=== PATIENT | male | born 1960 | race Caucasian/White ===

== ENCOUNTER 2016-06-10 17:17 | Inpatient (IN) | payer MEDICARE ==
[~2016-06-10] VITALS: Ht 172.7 cm; Wt 93.0 kg
[~2016-06-10 17:17] MED LIST: ADV1DS IH; ALBU8.5H2 IH; ANDRO GEL; ASCO500C14 PO; ASPI1TAB PO; BNZ20T PO; CITA20TA4 PO; GFN600TCR PO; HYDR-2890 PO; IBP200T PO; LEVO750T24 PO; MELO-195 PO; MORP30CA16 PO; MORP40CA2 PO; MULT-608 PO; OMEP1CAP10 PO; OMEP40CA36 PO; PRD10T PO; PRM25T PO; TIOT18CA IH; TRAM100T2 PO; [UNRECOGNIZED DRUG - OTHER] INH
--- OUTSIDE RECORDS SUMMARY | 2016-06-10 17:22 | XMS REPORT | Continuity of Care Document ---
Author Author [facility] Organization [facility] Address Unknown Phone Unavailable Care Team Providers Care Ply Cutter Name Role Phone Roderick Patton PCP [phone] Source Comments Some departments are not documenting in the electronic medical record. If you do not see the information that you expected, contact Release of Information in the Health Information Management department at [phone] for further assistance in locating additional records.[facility] Active Allergies and Adverse Reactions Not on File Current Medications Not on file Active Problems Not on file Social History Tobacco Use Types Packs/Day Years Used Date Never Assessed Plan of Care Health Maintenance Due Date Last Done Comments Physical (Comprehensive) 09/12/1966 Exam Pertussis Vaccine 09/12/1970 Tetanus Vaccine 09/12/1976 Colorectal Cancer 09/12/2009 Screening Influenza Vaccine 12/30/2015 Results from Last 3 Months Not on file
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
[2016-06-10 19:39] LABS: BILIRUBIN,URINE NEGATIVE (NEGATIVE); KETONES,URINE NEGATIVE (NEGATIVE); LEUKOCYTE ESTERASE ,URINE 1+ (NEGATIVE); NITRITE,URINE NEGATIVE (NEGATIVE); PH,URINE 6.5 (5-9); PROTEIN,URINE 1+ (NEGATIVE); UROBILINOGEN,URINE NORMAL (NORMAL)
[2016-06-10] MEDS ORDERED: ONDANSETRON 4 MG/2 ML (SDV) Z0FRAN IVP ONE (19:45)
[2016-06-10] MEDS ORDERED: FAMOTIDINE 20MG/2ML IV (PEPCID) IVP ONE (19:45)
[2016-06-10 19:53] LABS: SQUAMOUS EPITHELIAL CELL,UR 25-50 /HPF
[2016-06-10 19:55] LABS: BASOPHILS % (AUTO) 0 % (0-10); EOSINOPHILS # (AUTO) 0.1 10^3/uL (0.0-0.3); EOSINOPHILS % (AUTO) 1 % (0-10); LYMPHOCYTES # (AUTO) 0.3 X 10^3 (1.0-4.0); LYMPHOCYTES % (AUTO) 3 % (12-44); MEAN CORPUSCULAR HEMOGLOBIN 30 PG (25-34); MEAN CORPUSCULAR HGB CONC 32 G/DL (32-36); MEAN CORPUSCULAR VOLUME 92 FL (80-99); MEAN PLATELET VOLUME 9.2 FL (7.4-10.4); MONOCYTES # (AUTO) 0.6 X 10^3 (0.0-1.0); MONOCYTES % (AUTO) 4 % (0-12); NEUTROPHILS # (AUTO) 12.8 X 10^3 (1.8-7.8); NEUTROPHILS % (AUTO) 93 % (42-75); PLATELET COUNT 242 10^3/uL (130-400); RED BLOOD COUNT 4.37 10^6/uL (4.35-5.85); RED CELL DISTRIBUTION WIDTH 14.6 % (10.0-14.5); WHITE BLOOD COUNT 13.9 10^3/uL (4.3-11.0)
[2016-06-10 20:23] LABS: ALANINE AMINOTRANSFERASE 37 U/L (0-55); ALBUMIN 3.9 G/DL (3.2-4.5); ANION GAP 13 MMOL/L (5-14); ASPARTATE AMINO TRANSFERASE 36 U/L (5-34); BILIRUBIN,TOTAL 0.4 MG/DL (0.1-1.0); BLOOD UREA NITROGEN 18 MG/DL (7-18); BUN/CREATININE RATIO 17; CARBON DIOXIDE 28 MMOL/L (21-32); CHLORIDE 95 MMOL/L (98-107); CREATININE SERUM 1.06 MG/DL (0.60-1.30); GFR ESTIMATED > 60; GLUCOSE 113 MG/DL (70-105); LIPASE 33 U/L (8-78); POTASSIUM 4.6 MMOL/L (3.6-5.0); SODIUM 136 MMOL/L (135-145); TOTAL PROTEIN 7.1 G/DL (6.4-8.2)
[2016-06-10 20:25] LABS: BAND NEUTROPHILS 14 %; BASOPHILS % (MANUAL) 0 %; EOSINOPHILS % (MANUAL) 0 %; LYMPHOCYTES % (MANUAL) 2 %; NEUTROPHILS % (MANUAL) 79 %; REACTIVE LYMPHOCYTES 2 %
[2016-06-10 20:26] LABS: ANISOCYTOSIS SLIGHT; POIKILOCYTOSIS MODERATE; STOMATOCYTES MODERATE
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
[2016-06-10] MEDS ORDERED: cefTRIAXone INJECTION 1,000 MG in NS (IVPB) 50 ML IV ONE (21:00)
[2016-06-10] MEDS ORDERED: RT-ALBUTEROL/IPRATROPIUM 3 ML (DUONEB) VIAL INH ONE (21:00)
[2016-06-10] MEDS ORDERED: methylPREDNISolone 125 MG (Solu-MEDROL) VIAL IVP ONE (21:00)
[2016-06-10] MEDS ORDERED: NS IV 1000 ML 1,000 ML IV ONE (21:12)
[2016-06-10] MEDS ORDERED: MAGNESIUM 1 GM/100 ML IVPB 100 ML IV SCH (21:15)
[2016-06-10 22:03] LABS: ABG BASE EXCESS 4.3 MMOL/L (-2.5-2.5); ABG HCO3 31 MMOL/L (23-27); ABG OXYGEN SATURATION 98 % (94-100); ABG PCO2 56 MMHG (35-45); ABG PH 7.36 (7.37-7.43); ABG PO2 109 MMHG (79-93); ABG TCO2 32.1 MMOL/L (21.0-31.0); ALLENS TEST YES-POS; PATIENT TEMP 99.1
[2016-06-10 23:15] VITALS: BP 134/63
[2016-06-10] MEDS ORDERED: NS IV 1000 ML 1,000 ML ONE (23:42)
[2016-06-11] VITALS: BP 129/79
[2016-06-11] MEDS ORDERED: SODIUM CHLORIDE (ADD-VANTAGE) 250 ML ONE (00:07)
[2016-06-11] MEDS ORDERED: AZITHROMYCIN IV ADD-VANTAGE 500 MG IV ONE (00:07)
[2016-06-11] MEDS: RT-ALBUTEROL/IPRATROPIUM 3 ML (DUONEB) VIAL INH SCH ×6 (02:33→22:50)
[2016-06-11] MEDS ORDERED: FLUT1AER IH ×2 (03:17→13:00)
[2016-06-11] MEDS ORDERED: UMEC62.5 IH ×2 (03:17→13:00)
[2016-06-11] MEDS ORDERED: ALB0.5V IH (03:17)
[2016-06-11] MEDS ORDERED: RT-ALBUTEROL/IPRATROPIUM 3 ML (DUONEB) VIAL IH PRN (03:30)
[2016-06-11] MEDS ORDERED: ACETAMINOPHEN 500 MG TAB (TYLENOL) PO PRN (03:30)
[2016-06-11] MEDS: NS IV 1000 ML 1,000 ML IV SCH ×3 (03:30→17:22)
[2016-06-11] MEDS: AZITHROMYCIN 500 MG/NS 250 ML IVPB IV SCH ×2 (03:30)
[2016-06-11 04:00] VITALS: BP 105/70
[2016-06-11] MEDS ORDERED: TURM500C7 PO (04:22)
[2016-06-11] MEDS ORDERED: [UNRECOGNIZED DRUG - CODE] PO (04:22)
[2016-06-11] MEDS ORDERED: BENA20TA2 PO (04:22)
[2016-06-11] MEDS ORDERED: MORP60CP12 PO (04:22)
[2016-06-11] MEDS ORDERED: MULT-851 PO (04:22)
[2016-06-11] MEDS ORDERED: GLUC1CAP37 PO (04:22)
[2016-06-11] MEDS ORDERED: CALC-6 PO (04:22)
[2016-06-11] MEDS ORDERED: ZOLP5TAB7 PO (04:22)
[2016-06-11] MEDS ORDERED: IBUP-2055 PO (04:22)
[2016-06-11] MEDS ORDERED: BACL10TA PO (04:22)
[2016-06-11] MEDS ORDERED: LORA10TA7 PO (04:22)
[2016-06-11] MEDS ORDERED: GUAI400T71 PO (04:22)
[2016-06-11] MEDS ORDERED: DOCU-143 PO (04:22)
[2016-06-11] MEDS ORDERED: FURO20TA4 PO (04:22)
[2016-06-11] MEDS ORDERED: PROM25TA14 PO (04:22)
[2016-06-11] MEDS ORDERED: methylPREDNISolone 125 MG (Solu-MEDROL) VIAL IV SCH (05:00)
[2016-06-11 05:34] LABS: BASOPHILS % (AUTO) 0 % (0-10); EOSINOPHILS % (AUTO) 0 % (0-10); LYMPHOCYTES # (AUTO) 0.2 X 10^3 (1.0-4.0); LYMPHOCYTES % (AUTO) 2 % (12-44); MEAN CORPUSCULAR HEMOGLOBIN 30 PG (25-34); MEAN CORPUSCULAR HGB CONC 33 G/DL (32-36); MEAN CORPUSCULAR VOLUME 92 FL (80-99); MONOCYTES # (AUTO) 0.1 X 10^3 (0.0-1.0); MONOCYTES % (AUTO) 1 % (0-12); NEUTROPHILS # (AUTO) 11.8 X 10^3 (1.8-7.8); NEUTROPHILS % (AUTO) 98 % (42-75); PLATELET COUNT 259 10^3/uL (130-400); RED BLOOD COUNT 4.05 10^6/uL (4.35-5.85); RED CELL DISTRIBUTION WIDTH 14.6 % (10.0-14.5); WHITE BLOOD COUNT 12.1 10^3/uL (4.3-11.0)
[2016-06-11 08:00] VITALS: BP 121/66
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
[2016-06-11] MEDS ORDERED: LORazepam INJ 2 MG/ML (ATIVAN) VIAL ONE (08:43)
[2016-06-11] MEDS ORDERED: RT-ALBUTEROL SULF 2.5 MG/3 ML PRE-MIX VIAL ONE (08:53)
[2016-06-11 09:11] LABS: ABG BASE EXCESS -2.4 MMOL/L (-2.5-2.5); ABG HCO3 25 MMOL/L (23-27); ABG OXYGEN SATURATION 96 % (94-100); ABG PCO2 53 MMHG (35-45); ABG PO2 87 MMHG (79-93); ABG TCO2 26.2 MMOL/L (21.0-31.0)
[2016-06-11 09:14] LABS: ABG PH 7.29 (7.37-7.43); ALLENS TEST YES-POS
[2016-06-11 09:15] LABS: PATIENT TEMP 99.6
[2016-06-11] MEDS ORDERED: LORazepam INJ 2 MG/ML (ATIVAN) VIAL IVP PRN (09:15)
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
[2016-06-11] MEDS ORDERED: RT-ALBUTEROL SULF 2.5 MG/3 ML PRE-MIX VIAL INH NR (09:30)
[2016-06-11] MEDS ORDERED: FUROSEMIDE 40 MG/4 ML INJ (LASIX) ONE (09:40)
[2016-06-11] MEDS ORDERED: FUROSEMIDE 40 MG/4 ML INJ (LASIX) IVP NR (09:45)
[2016-06-11] MEDS ORDERED: CATHETER FLUSH 10 ML SYR IV PRN (09:45)
[2016-06-11 12:00] VITALS: BP 107/70
[2016-06-11] MEDS: HYDROcodone/APAP 10 MG/325 MG (LORTAB) TAB PO PRN ×3 (13:27→21:25)
[2016-06-11] MEDS: methylPREDNISolone 125 MG (Solu-MEDROL) VIAL IV SCH ×2 (13:30→21:25)
[2016-06-11] MEDS ORDERED: ZOLPIDEM 5 MG (AMBIEN) TAB PO PRN (14:00)
[2016-06-11] MEDS: morphine ER 30 MG (MS CONTIN) TAB PO SCH (14:06)
[2016-06-11 16:55] VITALS: BP 107/58
[2016-06-11 20:00] VITALS: BP 116/58
[2016-06-11] MEDS ORDERED: cefTRIAXone INJECTION 1,000 MG in NS (IVPB) 50 ML IV SCH (21:00)
[2016-06-12] VITALS (17 sets, daily range): BP systolic 117–156; BP diastolic 62–86
[2016-06-12] MEDS: morphine ER 30 MG (MS CONTIN) TAB PO SCH ×3 (00:32→20:47)
[2016-06-12] MEDS: NS IV 1000 ML 1,000 ML IV SCH ×3 (02:23→14:52)
[2016-06-12] MEDS: RT-ALBUTEROL/IPRATROPIUM 3 ML (DUONEB) VIAL INH SCH ×6 (03:10→22:17)
[2016-06-12] MEDS: AZITHROMYCIN 500 MG/NS 250 ML IVPB IV SCH ×2 (03:24)
[2016-06-12] MEDS: methylPREDNISolone 125 MG (Solu-MEDROL) VIAL IV SCH (04:59)
[2016-06-12] MEDS: HYDROcodone/APAP 10 MG/325 MG (LORTAB) TAB PO PRN ×3 (05:55→22:23)
[2016-06-12 09:14] LABS: BASOPHILS % (AUTO) 0 % (0-10); EOSINOPHILS # (AUTO) 0.1 10^3/uL (0.0-0.3); EOSINOPHILS % (AUTO) 0 % (0-10); LYMPHOCYTES # (AUTO) 0.9 X 10^3 (1.0-4.0); LYMPHOCYTES % (AUTO) 3 % (12-44); MEAN CORPUSCULAR HEMOGLOBIN 30 PG (25-34); MEAN CORPUSCULAR HGB CONC 32 G/DL (32-36); MEAN CORPUSCULAR VOLUME 93 FL (80-99); MEAN PLATELET VOLUME 9.4 FL (7.4-10.4); MONOCYTES # (AUTO) 0.8 X 10^3 (0.0-1.0); MONOCYTES % (AUTO) 3 % (0-12); NEUTROPHILS # (AUTO) 29.6 X 10^3 (1.8-7.8); NEUTROPHILS % (AUTO) 95 % (42-75); PLATELET COUNT 344 10^3/uL (130-400); RED BLOOD COUNT 4.34 10^6/uL (4.35-5.85); RED CELL DISTRIBUTION WIDTH 15.3 % (10.0-14.5)
[2016-06-12 09:17] LABS: WHITE BLOOD COUNT 31.3 10^3/uL (4.3-11.0)
[2016-06-12 09:24] LABS: ABG BASE EXCESS -0.5 MMOL/L (-2.5-2.5); ABG HCO3 27 MMOL/L (23-27); ABG OXYGEN SATURATION 100 % (94-100); ABG PCO2 62 MMHG (35-45); ABG PO2 210 MMHG (79-93); ABG TCO2 29.2 MMOL/L (21.0-31.0)
[2016-06-12 09:29] LABS: ABG PH 7.27 (7.37-7.43)
[2016-06-12 09:30] LABS: ALLENS TEST YES-POS; PATIENT TEMP 99.4
[2016-06-12 09:36] LABS: BAND NEUTROPHILS 6 %; BASOPHILS % (MANUAL) 0 %; EOSINOPHILS % (MANUAL) 0 %; LYMPHOCYTES % (MANUAL) 1 %; NEUTROPHILS % (MANUAL) 87 %; REACTIVE LYMPHOCYTES 4 %
[2016-06-12 09:40] LABS: ALANINE AMINOTRANSFERASE 52 U/L (0-55); ANION GAP 12 MMOL/L (5-14); ASPARTATE AMINO TRANSFERASE 53 U/L (5-34); BILIRUBIN,TOTAL 0.2 MG/DL (0.1-1.0); BLOOD UREA NITROGEN 19 MG/DL (7-18); BUN/CREATININE RATIO 20; CALCIUM 8.5 MG/DL (8.5-10.1); CARBON DIOXIDE 25 MMOL/L (21-32); CHLORIDE 105 MMOL/L (98-107); CREATININE SERUM 0.95 MG/DL (0.60-1.30); GFR ESTIMATED > 60; GLUCOSE 161 MG/DL (70-105); POTASSIUM 4.4 MMOL/L (3.6-5.0); SODIUM 142 MMOL/L (135-145); TOTAL PROTEIN 7.3 G/DL (6.4-8.2)
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
[2016-06-12] MEDS ORDERED: ENOXAPARIN 40 MG/0.4 ML (LOVENOX) SYR SC SCH (11:15)
[2016-06-12] MEDS ORDERED: LEVOFLOXACIN 750 MG/150 ML IV 150 ML IV SCH (11:15)
[2016-06-12] MEDS ORDERED: methylPREDNISolone 40 MG/ML (Solu-MEDROL) VIAL ONE (11:28)
[2016-06-12] MEDS ORDERED: CITA20TA7 PO (11:47)
[2016-06-12] MEDS ORDERED: MORP60TA52 PO (11:47)
[2016-06-12] MEDS ORDERED: TEST75GE2 TD (11:47)
[2016-06-12] MEDS ORDERED: RT-ALBUINH IH (11:47)
[2016-06-12] MEDS ORDERED: [UNRECOGNIZED DRUG - CODE] PO (11:47)
[2016-06-12] MEDS ORDERED: ASPI1TAB22 PO (11:47)
[2016-06-12] MEDS ORDERED: CETI-214 PO (11:47)
[2016-06-12] MEDS ORDERED: TEST75GE3 TP (11:47)
[2016-06-12] MEDS ORDERED: POTA10TA36 PO (11:47)
[2016-06-12] MEDS ORDERED: OMEP20CA12 PO (11:47)
[2016-06-12] MEDS ORDERED: HYDR-3820 PO (11:47)
[2016-06-12] MEDS ORDERED: GLUC1CAP10 PO (11:47)
[2016-06-12] MEDS: methylPREDNISolone 40 MG/ML (Solu-MEDROL) VIAL IV SCH ×2 (12:00→19:15)
[2016-06-12] MEDS ORDERED: methylPREDNISolone 125 MG (Solu-MEDROL) VIAL IV SCH (12:00)
[2016-06-12 15:10] LABS: ABG BASE EXCESS 1.9 MMOL/L (-2.5-2.5); ABG HCO3 27 MMOL/L (23-27); ABG OXYGEN SATURATION 99 % (94-100); ABG PCO2 46 MMHG (35-45); ABG PH 7.39 (7.37-7.43); ABG PO2 139 MMHG (79-93); ABG TCO2 28.7 MMOL/L (21.0-31.0)
[2016-06-12 15:11] LABS: ALLENS TEST POSITIVE; PATIENT TEMP 98.5
[2016-06-12] MEDS ORDERED: morphine INJ 4 MG/ML 1 ML (VIAL/SYRINGE) ONE (18:36)
[2016-06-12] MEDS ORDERED: DEXMEDETOMIDINE PRE-MIX 100 ML IV PRN (19:15)
[2016-06-12] MEDS ORDERED: morphine INJ 4 MG/ML 1 ML (VIAL/SYRINGE) IVP PRN (19:15)
--- NOTE | 2016-06-12 19:31 | Diagnostic Imaging Report ---
INDICATION: Respiratory distress. COMPARISON: 06/12/2016 at 9:35 a.m. FINDINGS: A single view of the chest demonstrates hyperinflation compatible with COPD. There is improved aeration in the left lung base. No new infiltrate is seen. There is no pulmonary edema, pneumothorax or effusion. IMPRESSION: 1. COPD. 2. Interval clearing of the left lung base. Dictated by: Dictated on workstation # [id number]
[2016-06-12] MEDS: CEFEPIME INJECTION 2,000 MG in NS (IVPB) 50 ML IV SCH (20:47)
[2016-06-13] VITALS (25 sets, daily range): BP systolic 123–169; BP diastolic 73–102
[2016-06-13] MEDS: NS IV 1000 ML 1,000 ML IV SCH ×3 (00:33→19:37)
[2016-06-13] MEDS: methylPREDNISolone 40 MG/ML (Solu-MEDROL) VIAL IV SCH ×5 (01:00→23:44)
[2016-06-13] MEDS: RT-ALBUTEROL/IPRATROPIUM 3 ML (DUONEB) VIAL INH SCH ×6 (02:41→22:07)
[2016-06-13 04:11] LABS: BASOPHILS % (AUTO) 0 % (0-10); EOSINOPHILS % (AUTO) 0 % (0-10); LYMPHOCYTES # (AUTO) 0.5 X 10^3 (1.0-4.0); LYMPHOCYTES % (AUTO) 3 % (12-44); MEAN CORPUSCULAR HEMOGLOBIN 30 PG (25-34); MEAN CORPUSCULAR HGB CONC 31 G/DL (32-36); MEAN CORPUSCULAR VOLUME 94 FL (80-99); MEAN PLATELET VOLUME 9.5 FL (7.4-10.4); MONOCYTES # (AUTO) 0.6 X 10^3 (0.0-1.0); MONOCYTES % (AUTO) 3 % (0-12); NEUTROPHILS # (AUTO) 16.9 X 10^3 (1.8-7.8); NEUTROPHILS % (AUTO) 94 % (42-75); PLATELET COUNT 265 10^3/uL (130-400); RED CELL DISTRIBUTION WIDTH 15.3 % (10.0-14.5)
[2016-06-13 04:40] LABS: ANION GAP 10 MMOL/L (5-14); BLOOD UREA NITROGEN 19 MG/DL (7-18); BUN/CREATININE RATIO 23; CALCIUM 7.9 MG/DL (8.5-10.1); CARBON DIOXIDE 25 MMOL/L (21-32); CHLORIDE 105 MMOL/L (98-107); CREATININE SERUM 0.81 MG/DL (0.60-1.30); GFR ESTIMATED > 60; GLUCOSE 144 MG/DL (70-105); MAGNESIUM 2.2 MG/DL (1.8-2.4); PHOSPHORUS 3.2 MG/DL (2.3-4.7); POTASSIUM 4.4 MMOL/L (3.6-5.0); SODIUM 140 MMOL/L (135-145)
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
[2016-06-13] MEDS: morphine ER 30 MG (MS CONTIN) TAB PO SCH ×2 (07:58→20:47)
[2016-06-13] MEDS: CEFEPIME INJECTION 2,000 MG in NS (IVPB) 50 ML IV SCH ×2 (07:58→20:47)
[2016-06-13] MEDS ORDERED: DOCUSATE SODIUM 100 MG (COLACE) CAP PO PRN (09:15)
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
[2016-06-13] MEDS: HYDROcodone/APAP 10 MG/325 MG (LORTAB) TAB PO PRN ×4 (10:07→23:44)
[2016-06-13] MEDS ORDERED: guaiFENesin (MUCINEX) 600 MG TAB PO ONE (10:10)
[2016-06-13] MEDS: LEVOFLOXACIN 750 MG TAB (LEVAQUIN) PO SCH (10:11)
[2016-06-13] MEDS: LORATADINE (CLARITIN) 10 MG TAB PO SCH (10:11)
[2016-06-13] MEDS: ENOXAPARIN 40 MG/0.4 ML (LOVENOX) SYR SC SCH (10:11)
[2016-06-13] MEDS: PANTOPRAZOLE 20 MG TABLET (PROTONIX) PO SCH (10:11)
--- NOTE | 2016-06-13 10:14 | Progress Note (SOAP) ---
KYLE SANDOVAL MEDICAL STUDENT 06/13/16 1014: Subjective Subjective/Events-last exam Mr. Alonso reports that he had another episode of respiratory distress 06/12 afternoon (after AM rounds) when he got out of bed to use the restroom. Overnight and this morning, he has been stable and has had no difficulty breathing. He has been out of bed twice in the past 36 hrs, and he has had respiratory distress both times. He reports that his chronic arthritic pain has been stable since his admission. His Afia was in the room with him this AM, and she was asking about his HTN medication (we had been holding it due to hypotension/normotension, plan to restart today due to his trend back towards his baseline BP) and his guaifenesin (which we restarted today upon receipt and review of his home medications list). Review of Systems HEENT: No Head Aches, No Dysphasia, No Sinus Congestion Pulmonary: No Dyspnea, No Pleuritic Chest Pain Cardiovascular: No: Chest Pain, Palpitations Gastrointestinal: No: Abdominal Pain, Constipation, Diarrhea, Nausea, Vomiting Genitourinary: No Dysuria Musculoskeletal: : other Chronic polyarthritis, stable Objective Exam Vital Signs Date Time Temp Pulse Resp B/P Pulse Ox O2 Delivery O2 Flow Rate FiO2 06/13/16 08:06 98 High Flow NC 8.00 06/13/16 08:04 98.0 93 17 149/87 98 High Flow NC 8.00 06/13/16 07:00 66 06/13/16 06:26 99 6.00 06/13/16 06:00 67 12 124/81 99 High Flow NC 8.00 06/13/16 05:00 75 16 132/79 98 High Flow NC 8.00 06/13/16 04:00 77 13 138/82 95 High Flow NC 8.00 06/13/16 04:00 97.0 High Flow NC 8.00 06/13/16 03:00 80 13 123/73 97 High Flow NC 8.00 06/13/16 02:41 98 6.00 06/13/16 02:00 76 14 135/78 98 High Flow NC 8.00 06/13/16 01:00 81 12 135/77 97 High Flow NC 8.00 06/13/16 01:00 81 06/13/16 00:00 96 25 123/79 97 High Flow NC 8.00 06/12/16 23:00 107 22 146/71 95 High Flow NC 8.00 06/12/16 22:18 97 6.00 06/12/16 22:00 85 14 135/86 98 High Flow NC 8.00 06/12/16 21:00 102 10 122/83 92 High Flow NC 8.00 06/12/16 20:00 100 NIV/Bilevel 45 06/12/16 20:00 113 14 119/82 95 NIV/Bilevel 45.00 06/12/16 20:00 98.3 NIV/Bilevel 45.00 06/12/16 19:00 141 20 135/84 98 NIV/Bilevel 45.00 06/12/16 19:00 141 06/12/16 18:41 92 36 100 30.00 06/12/16 18:00 94 8 96 Nasal Cannula 4.00 06/12/16 17:00 103 14 96 Nasal Cannula 4.00 06/12/16 16:00 115 21 140/74 96 Nasal Cannula 4.00 06/12/16 15:00 108 14 100 NIV/Bilevel 30.00 06/12/16 14:22 96 18 100 30.00 06/12/16 14:00 109 18 126/73 100 NIV/Bilevel 30.00 06/12/16 13:00 111 06/12/16 13:00 113 13 137/77 99 NIV/Bilevel 50.00 06/12/16 12:49 108 16 100 40.00 06/12/16 11:38 100 NIV/Bilevel 50 06/12/16 11:37 97.8 110 19 117/75 95 NIV/Bilevel 50.00 06/12/16 11:00 107 19 121/86 100 NIV/Bilevel 50.00 06/12/16 10:30 109 16 98 50.00 06/12/16 10:11 114 06/12/16 10:10 100 NIV/Bilevel 50 I & O 06/13/16 07:00 Intake Total 4740 ml Output Total 2650 ml Balance 2090 ml Capillary Refill : NONELess Than 3 Seconds General Appearance: No Apparent Distress Respiratory: Crackles (crackles have decreased compared to exam yesterday morning) Wheezing (bilateral mild wheezes audible in upper lung perea) Peripheral Pulses: 1+ Radial Pulses (R), 1+ Radial Pulses (L) Gastrointestinal: normal bowel sounds non tender soft Extremity: No Calf Tenderness Pedal Edema (Lower extremity edema stable from exam yesterday) Neurologic/Psychiatric: Alert Oriented x3 Normal Mood/Affect Results Lab Laboratory Tests 06/12/16 15:01: Jeff Test POSITIVE, Arterial Blood Base Excess 1.9, Arterial Blood HCO3 27, Arterial Blood Oxygen Saturation 99, Arterial Blood Partial Pressure CO2 46H, Arterial Blood Partial Pressure O2 139H, Arterial Blood Total CO2 28.7, Arterial Blood pH 7.39, Blood Gas Inspired Oxygen 30% BIPAP, Blood Gas Patient Temperature 98.5, Blood Gas Puncture Site LEFT RADIAL, Blood Gas Ventilator Setting NO 06/13/16 03:33: Anion Gap 10, BUN/Creatinine Ratio 23, Basophils # (Auto) 0.0, Basophils (%) ( Auto) 0, Blood Urea Nitrogen 19H, Calcium Level 7.9L, Carbon Dioxide Level 25, Chloride Level 105, Creatinine 0.81, Eosinophils # (Auto) 0.0, Eosinophils (%) ( Auto) 0, Estimat Glomerular Filtration Rate > 60, Glucose Level 144H, Hematocrit 35L, Hemoglobin 10.9L, Lymphocytes # (Auto) 0.5L, Lymphocytes (%) ( Auto) 3L, Magnesium Level 2.2, Mean Corpuscular Hemoglobin 30, Mean Corpuscular Hemoglobin Concent 31L, Mean Corpuscular Volume 94, Mean Platelet Volume 9.5, Monocytes # (Auto) 0.6, Monocytes (%) (Auto) 3, Neutrophils # (Auto) 16.9H, Neutrophils (%) (Auto) 94H, Phosphorus Level 3.2, Platelet Count 265, Potassium Level 4.4, Red Blood Count 3.70L, Red Cell Distribution Width 15.3H, Sodium Level 140, White Blood Count 18.0H Microbiology 06/10/16 Blood Culture - Preliminary, Resulted No growth 06/10/16 Influenza Types A,B Antigen (PANCHO) - Final, Complete Assessment/Plan Assessment/Plan Assess & Plan/Chief Complaint Neuro - Morphine 60 mg Q12H - Morphine 2-4 mg Q4H PRN for breakthrough pain - Lortab 10/325 Q4-6H PRN Psych - Discontinued zolpidem yesterday; pt reports that he slept well last night without it - 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 HELPER 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 - Holding NAPHTHALENE OPERATOR HELPER citalopram for now due to concern for QTc prolongation with levofloxacin CV - on SQ enoxaparin for DVT ppx - 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 HELPER ACEI Pulm - Consider changing solumedrol from Q6H to Q8H - 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 HELPER guaifenesin GI - 2 bowel movements yesterday - Restarted mine captain docusate Renal/ - Continue NS@125 for now; plan to re-evaluate this afternoon ID - Discontinued Rocephin - Cefepime day 2 , consider discontinuing tomorrow - Continue Levaquin for now Ppx - On lovenox DVT ppx - on ABX Disp - Continue ICU status for now; re-evaluate this afternoon Diagnosis/Problems: Clinical Quality Measures DVT/VTE Risk/Contraindication: Risk Factor Score Per Nursin RFS Level Per Nursing on Admit: 4+=Very High AVANI NUNN MD 06/13/16 1046: Supervisory-Addendum Brief Supervisory Addendum Patient seen with MS4 Kyle Sandoval, see my notes for further documentation. KYLE SANDOVAL MEDICAL STUDENT Jun 13, 2016 10:14 AVANI NUNN MD Jun 13, 2016 10:46
[2016-06-13] MEDS: BENAZEPRIL 20 MG (LOTENSIN) TAB PO SCH (10:20)
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
[2016-06-13] MEDS: BACLOFEN 10 MG (LIORESAL) TAB PO SCH ×2 (13:28→20:47)
[2016-06-13] MEDS ORDERED: PATIENT MAY USE OWN MEDS, ALL MC SCH (19:00)
[2016-06-13] MEDS ORDERED: RT-ADVAIR HFA 45/21 MCG PER PUFF IH SCH (20:00)
[2016-06-13] MEDS: BREO ELLIPTA IH SCH (20:48)
[2016-06-13] MEDS ORDERED: guaiFENesin (MUCINEX) 600 MG TAB PO PRN (21:00)
[2016-06-14] VITALS (11 sets, daily range): BP systolic 144–178; BP diastolic 80–99
[2016-06-14] MEDS: NS IV 1000 ML 1,000 ML IV SCH (02:26)
[2016-06-14] MEDS: RT-ALBUTEROL/IPRATROPIUM 3 ML (DUONEB) VIAL INH SCH ×6 (02:38→21:54)
[2016-06-14 04:29] LABS: BASOPHILS % (AUTO) 0 % (0-10); EOSINOPHILS % (AUTO) 0 % (0-10); LYMPHOCYTES # (AUTO) 0.5 X 10^3 (1.0-4.0); LYMPHOCYTES % (AUTO) 4 % (12-44); MEAN CORPUSCULAR HEMOGLOBIN 30 PG (25-34); MEAN CORPUSCULAR HGB CONC 32 G/DL (32-36); MEAN CORPUSCULAR VOLUME 93 FL (80-99); MEAN PLATELET VOLUME 9.7 FL (7.4-10.4); MONOCYTES # (AUTO) 0.3 X 10^3 (0.0-1.0); MONOCYTES % (AUTO) 3 % (0-12); NEUTROPHILS % (AUTO) 93 % (42-75); PLATELET COUNT 242 10^3/uL (130-400); RED BLOOD COUNT 3.79 10^6/uL (4.35-5.85); RED CELL DISTRIBUTION WIDTH 15.1 % (10.0-14.5); WHITE BLOOD COUNT 11.8 10^3/uL (4.3-11.0)
[2016-06-14 04:47] LABS: ANION GAP 8 MMOL/L (5-14); BLOOD UREA NITROGEN 20 MG/DL (7-18); BUN/CREATININE RATIO 25; CALCIUM 7.9 MG/DL (8.5-10.1); CARBON DIOXIDE 26 MMOL/L (21-32); CHLORIDE 106 MMOL/L (98-107); CREATININE SERUM 0.81 MG/DL (0.60-1.30); GFR ESTIMATED > 60; GLUCOSE 154 MG/DL (70-105); MAGNESIUM 2.3 MG/DL (1.8-2.4); POTASSIUM 4.5 MMOL/L (3.6-5.0); SODIUM 140 MMOL/L (135-145)
[2016-06-14] MEDS: HYDROcodone/APAP 10 MG/325 MG (LORTAB) TAB PO PRN ×4 (05:09→22:10)
[2016-06-14] MEDS: methylPREDNISolone 40 MG/ML (Solu-MEDROL) VIAL IV SCH ×2 (05:09→20:55)
[2016-06-14] MEDS: BREO ELLIPTA IH SCH (05:15)
[2016-06-14] MEDS: PATIENT MAY USE OWN MED,SINGLE MED PO SCH (05:16)
--- NOTE | 2016-06-14 06:40 | Pulmonary Progress Note ---
Subjective Subjective/Events-last exam Pt is doing much better today. He did not use CPAP last night. Exam Exam Vital Signs Date Time Temp Pulse Resp B/P Pulse Ox O2 Delivery O2 Flow Rate FiO2 06/14/16 06:31 98 6.00 06/14/16 06:00 62 13 156/82 98 High Flow NC 8.00 06/14/16 05:16 96 8.00 06/14/16 05:00 81 16 178/95 98 High Flow NC 8.00 06/14/16 04:21 98 High Flow NC 8.00 06/14/16 04:00 97.8 06/14/16 04:00 51 12 160/90 98 High Flow NC 8.00 06/14/16 03:00 62 13 150/84 98 High Flow NC 8.00 06/14/16 02:39 98 8.00 06/14/16 02:00 78 30 152/89 98 High Flow NC 8.00 06/14/16 01:00 55 12 158/81 98 High Flow NC 8.00 06/14/16 01:00 55 06/14/16 00:00 98 High Flow NC 8.00 06/14/16 00:00 68 13 158/80 97 High Flow NC 8.00 06/14/16 00:00 98.7 06/13/16 23:00 61 14 152/83 98 High Flow NC 8.00 06/13/16 22:08 97 8.00 06/13/16 22:00 63 10 159/89 97 High Flow NC 8.00 06/13/16 21:00 63 11 169/82 95 High Flow NC 8.00 06/13/16 20:50 98 High Flow NC 8.00 06/13/16 20:00 67 11 160/89 96 High Flow NC 8.00 06/13/16 19:04 98.2 06/13/16 19:00 94 33 167/96 98 High Flow NC 8.00 06/13/16 19:00 94 06/13/16 18:43 98 8.00 06/13/16 18:00 12 12 166/102 100 High Flow NC 8.00 06/13/16 17:00 71 14 167/91 97 High Flow NC 8.00 06/13/16 16:37 97.4 108 23 141/73 98 High Flow NC 8.00 06/13/16 16:00 70 11 162/93 96 High Flow NC 8.00 06/13/16 15:00 82 12 164/97 99 High Flow NC 8.00 06/13/16 14:28 98 6.00 06/13/16 14:00 69 7 148/86 95 High Flow NC 8.00 06/13/16 13:00 78 14 152/91 98 High Flow NC 8.00 06/13/16 13:00 78 06/13/16 12:00 63 10 142/85 99 High Flow NC 8.00 06/13/16 11:34 98.4 80 12 157/87 98 High Flow NC 8.00 06/13/16 11:00 84 19 157/87 98 High Flow NC 8.00 06/13/16 10:27 97 6.00 06/13/16 10:00 98 20 150/84 98 High Flow NC 8.00 06/13/16 09:00 92 9 99 High Flow NC 8.00 06/13/16 08:06 98 High Flow NC 8.00 06/13/16 08:04 98.0 93 17 149/87 98 High Flow NC 8.00 06/13/16 07:00 66 06/13/16 07:00 71 15 144/78 96 High Flow NC 8.00 I & O 06/14/16 07:00 Intake Total 3900 ml Output Total 2875 ml Balance 1025 ml General Appearance: No Apparent Distress HEENT: Normal ENT Inspection Pharynx Normal Neck: Full Range of Motion Normal Inspection Non Tender Respiratory: No Accessory Muscle Use No Respiratory Distress Decreased Breath Sounds Capillary Refill: Less Than 3 Seconds Peripheral Pulses: 1+ Radial Pulses (R), 1+ Radial Pulses (L) Gastrointestinal: soft Extremity: No Calf Tenderness Pedal Edema (Lower extremity edema stable from exam yesterday) Neurologic/Psychiatric: Alert Oriented x3 Skin: Normal Color Warm/Dry Results Lab Laboratory Tests 06/12/16 09:08 06/13/16 03:33 06/14/16 03:30 06/14/16 03:50 Assessment/Plan Assessment/Plan pneumonia with sepsis -- CAP -- PT has hx of pseudomonas -Levaquin and cefepime COPDAE -continue SVNs and solumedrol Acute on chronic respiratory failure -noninvasive ventilation -If pt is agreeable he would benefit from vent to mask at home. Atelectasis -Change SVN to easy PAP \ -IS Clinical Quality Measures DVT/VTE Risk/Contraindication: Risk Factor Score Per Nursin RFS Level Per Nursing on Admit: 4+=Very High EDGARDO THORNTON DO Jun 14, 2016 06:40
[2016-06-14] MEDS ORDERED: FUROSEMIDE 40 MG/4 ML INJ (LASIX) IVP ONE (06:45)
[2016-06-14] MEDS: BENAZEPRIL 20 MG (LOTENSIN) TAB PO SCH (08:03)
[2016-06-14] MEDS: BACLOFEN 10 MG (LIORESAL) TAB PO SCH ×3 (08:03→20:54)
[2016-06-14] MEDS: LORATADINE (CLARITIN) 10 MG TAB PO SCH (08:03)
[2016-06-14] MEDS: CEFEPIME INJECTION 2,000 MG in NS (IVPB) 50 ML IV SCH (08:04)
[2016-06-14] MEDS: PANTOPRAZOLE 20 MG TABLET (PROTONIX) PO SCH (08:04)
[2016-06-14] MEDS: morphine ER 30 MG (MS CONTIN) TAB PO SCH ×2 (08:04→20:54)
--- NOTE | 2016-06-14 08:27 | Diagnostic Imaging Report ---
INDICATION: Dyspnea. COMPARISON: 06/13/2016. FINDINGS: Metallic opacities overlying the left chest stable. Air trapping and COPD chronic. No focal infiltrate. The heart size and vascularity within normal limits. Superimposed upon chronic finding some perihilar and basilar opacities atelectasis or infiltrate redemonstrated. IMPRESSION: Old foreign bodies, air trapping, COPD. No effusion or pneumothorax. Perihilar and basilar parenchymal opacities, infiltrate versus atelectasis unchanged. Dictated by: Dictated on workstation # [id number]
--- NOTE | 2016-06-14 10:55 | Progress Note (SOAP) ---
WILL SANDOVAL MEDICAL STUDENT 06/14/16 1055: Subjective Subjective/Events-last exam Mr. Alonso reports that his breathing continues to improve. He had no episodes of respiratory distress in the past 24 hrs, and he has been more gradually increasing his activity/exertion (e.g., sitting up at edge of bed more often, but not ambulating yet). He has not been on CPAP at home, but he is on home oxygen. We discussed potentially starting some night-time breathing assistance, and he expressed interest and is open to trying it. His chronic pain has not been an issue during this admission. He also reports that his lower extremity edema is improving. Review of Systems General: No Chills, No Night Sweats, No Fatigue, No Malaise HEENT: No Head Aches Pulmonary: No Dyspnea, No Cough, No Pleuritic Chest Pain Cardiovascular: : Edema (resolving)No: Chest Pain Gastrointestinal: No: Abdominal Pain, Constipation, Nausea, Vomiting Genitourinary: No Dysuria Musculoskeletal: : back pain (chronic, stable, tolerable) Chronic polyarthritis, stable Objective Exam Vital Signs Date Time Temp Pulse Resp B/P Pulse Ox O2 Delivery O2 Flow Rate FiO2 06/14/16 10:25 95 6.00 06/14/16 08:05 97.8 89 18 173/92 96 High Flow NC 6.00 06/14/16 08:00 97 High Flow NC 6.00 06/14/16 07:00 84 06/14/16 06:35 98 06/14/16 06:31 98 6.00 06/14/16 06:00 62 13 156/82 98 High Flow NC 8.00 06/14/16 05:16 96 8.00 06/14/16 05:00 81 16 178/95 98 High Flow NC 8.00 06/14/16 04:21 98 High Flow NC 8.00 06/14/16 04:00 97.8 06/14/16 04:00 51 12 160/90 98 High Flow NC 8.00 06/14/16 03:00 62 13 150/84 98 High Flow NC 8.00 06/14/16 02:39 98 8.00 06/14/16 02:00 78 30 152/89 98 High Flow NC 8.00 06/14/16 01:00 55 12 158/81 98 High Flow NC 8.00 06/14/16 01:00 55 06/14/16 00:00 98 High Flow NC 8.00 06/14/16 00:00 68 13 158/80 97 High Flow NC 8.00 06/14/16 00:00 98.7 06/13/16 23:00 61 14 152/83 98 High Flow NC 8.00 06/13/16 22:08 97 8.00 06/13/16 22:00 63 10 159/89 97 High Flow NC 8.00 06/13/16 21:00 63 11 169/82 95 High Flow NC 8.00 06/13/16 20:50 98 High Flow NC 8.00 06/13/16 20:00 67 11 160/89 96 High Flow NC 8.00 06/13/16 19:04 98.2 06/13/16 19:00 94 33 167/96 98 High Flow NC 8.00 06/13/16 19:00 94 06/13/16 18:43 98 8.00 06/13/16 18:00 12 12 166/102 100 High Flow NC 8.00 06/13/16 17:00 71 14 167/91 97 High Flow NC 8.00 06/13/16 16:37 97.4 108 23 141/73 98 High Flow NC 8.00 06/13/16 16:00 70 11 162/93 96 High Flow NC 8.00 06/13/16 15:00 82 12 164/97 99 High Flow NC 8.00 06/13/16 14:28 98 6.00 06/13/16 14:00 69 7 148/86 95 High Flow NC 8.00 06/13/16 13:00 78 14 152/91 98 High Flow NC 8.00 06/13/16 13:00 78 06/13/16 12:00 63 10 142/85 99 High Flow NC 8.00 06/13/16 11:34 98.4 80 12 157/87 98 High Flow NC 8.00 06/13/16 11:00 84 19 157/87 98 High Flow NC 8.00 I & O 06/14/16 07:00 Intake Total 3900 ml Output Total 2875 ml Balance 1025 ml Capillary Refill : NONELess Than 3 Seconds General Appearance: No Apparent Distress Neck: No JVD Respiratory: Decreased Breath Sounds (evident on exam bilaterally, but less than prior exams (resolving))No Rhonci, No Wheezing Cardiovascular: Regular Rate, Rhythm No Murmur Peripheral Pulses: 2+ Radial Pulses (R), 2+ Radial Pulses (L) Gastrointestinal: normal bowel sounds non tender Extremity: Pedal Edema (resolving) Neurologic/Psychiatric: Alert Skin: Normal Color Warm/Dry Results Lab Laboratory Tests 06/14/16 03:30: Basophils # (Auto) 0.0, Basophils (%) (Auto) 0, Eosinophils # (Auto) 0.0, Eosinophils (%) (Auto) 0, Hematocrit 35L, Hemoglobin 11.2L, Lymphocytes # (Auto ) 0.5L, Lymphocytes (%) (Auto) 4L, Mean Corpuscular Hemoglobin 30, Mean Corpuscular Hemoglobin Concent 32, Mean Corpuscular Volume 93, Mean Platelet Volume 9.7, Monocytes # (Auto) 0.3, Monocytes (%) (Auto) 3, Neutrophils # (Auto ) 11.0H, Neutrophils (%) (Auto) 93H, Platelet Count 242, Red Blood Count 3.79L, Red Cell Distribution Width 15.1H, White Blood Count 11.8H 06/14/16 03:50: Anion Gap 8, BUN/Creatinine Ratio 25, Blood Urea Nitrogen 20H, Calcium Level 7.9L, Carbon Dioxide Level 26, Chloride Level 106, Creatinine 0.81, Estimat Glomerular Filtration Rate > 60, Glucose Level 154H, Magnesium Level 2.3, Phosphorus Level 3.0, Potassium Level 4.5, Sodium Level 140 Microbiology 06/10/16 Blood Culture - Preliminary, Resulted No growth 06/13/16 Gram Stain - Final, Resulted 06/13/16 Sputum Culture - Preliminary, Resulted Normal theo Assessment/Plan Assessment/Plan Assess & Plan/Chief Complaint Neuro - Morphine 60 mg Q12H - Lortab 10/325 Q4-6H PRN (5 doses in past 24 hrs) for breakthrough pain Psych - Continues to sleep well without SAFETY ASSOCIATE zolpidem - Continue SAFETY ASSOCIATE baclofen - Holding SAFETY ASSOCIATE citalopram for now due to concern for QTc prolongation with levofloxacin CV - SQ enoxaparin for DVT ppx - BP has become elevated (above baseline, despite restarting benazapril yesterday) - Continue SAFETY ASSOCIATE benazapril from 20 mg PO QDay for now but consider increasing to 20 mg PO BID due to continued elevated blood pressure if this does not resolve with decreasing frequency of solumedrol dosing Pulm - Taper solumedrol dosing frequency from Q6H to Q12H over next 24 hrs - Continue SAFETY ASSOCIATE guaifenesin - Doing well with gradually decreasing NC flow rate - Discussed night time home breathing assistance with Mr. Alonso, and he is open to starting it upon discharge GI - Continue SAFETY ASSOCIATE docusate - Pantoprazole 20 mg QAM Renal/ - Discontinued NS@125 ID - Discontinued Rocephin - Discontinue Cefepime today (normal theo on day 1 growth of cultures) - Continue Levaquin for now Ppx - On lovenox DVT ppx - on ABX Disposition - Transfer to floor status Diagnosis/Problems: Clinical Quality Measures DVT/VTE Risk/Contraindication: Risk Factor Score Per Nursin RFS Level Per Nursing on Admit: 4+=Very High AVANI NUNN MD 06/14/16 1134: Supervisory-Addendum Brief Supervisory Addendum Patient seen with MS4 Will Sandoval, see my notes same day. WILL SANDOVAL MEDICAL STUDENT Jun 14, 2016 10:55 AVANI NUNN MD Jun 14, 2016 11:34
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
[2016-06-14] MEDS: LEVOFLOXACIN 750 MG TAB (LEVAQUIN) PO SCH (11:02)
[2016-06-14] MEDS: ENOXAPARIN 40 MG/0.4 ML (LOVENOX) SYR SC SCH (11:03)
[2016-06-15] VITALS: BP 164/99
[2016-06-15] MEDS: RT-ALBUTEROL/IPRATROPIUM 3 ML (DUONEB) VIAL INH SCH ×6 (02:26→22:24)
[2016-06-15] MEDS: HYDROcodone/APAP 10 MG/325 MG (LORTAB) TAB PO PRN ×4 (03:01→21:24)
[2016-06-15 04:00] VITALS: BP 173/64
[2016-06-15 05:18] LABS: BASOPHILS % (AUTO) 0 % (0-10); EOSINOPHILS % (AUTO) 0 % (0-10); LYMPHOCYTES # (AUTO) 0.5 X 10^3 (1.0-4.0); LYMPHOCYTES % (AUTO) 5 % (12-44); MEAN CORPUSCULAR HEMOGLOBIN 30 PG (25-34); MEAN CORPUSCULAR HGB CONC 33 G/DL (32-36); MEAN CORPUSCULAR VOLUME 91 FL (80-99); MONOCYTES # (AUTO) 0.4 X 10^3 (0.0-1.0); MONOCYTES % (AUTO) 4 % (0-12); NEUTROPHILS # (AUTO) 9.8 X 10^3 (1.8-7.8); NEUTROPHILS % (AUTO) 91 % (42-75); PLATELET COUNT 259 10^3/uL (130-400); RED BLOOD COUNT 4.12 10^6/uL (4.35-5.85); RED CELL DISTRIBUTION WIDTH 14.6 % (10.0-14.5); WHITE BLOOD COUNT 10.7 10^3/uL (4.3-11.0)
[2016-06-15 05:33] LABS: ANION GAP 10 MMOL/L (5-14); BLOOD UREA NITROGEN 20 MG/DL (7-18); BUN/CREATININE RATIO 24; CALCIUM 8.6 MG/DL (8.5-10.1); CARBON DIOXIDE 30 MMOL/L (21-32); CHLORIDE 101 MMOL/L (98-107); CREATININE SERUM 0.83 MG/DL (0.60-1.30); GFR ESTIMATED > 60; GLUCOSE 143 MG/DL (70-105); MAGNESIUM 2.2 MG/DL (1.8-2.4); PHOSPHORUS 3.8 MG/DL (2.3-4.7); POTASSIUM 4.5 MMOL/L (3.6-5.0); SODIUM 141 MMOL/L (135-145)
[2016-06-15] MEDS: PANTOPRAZOLE 20 MG TABLET (PROTONIX) PO SCH (07:54)
[2016-06-15] MEDS: BREO ELLIPTA IH SCH (07:56)
[2016-06-15] MEDS: PATIENT MAY USE OWN MED,SINGLE MED PO SCH (07:57)
--- NOTE | 2016-06-15 08:01 | Pulmonary Progress Note ---
Subjective Subjective/Events-last exam Pt is feeling much improved. Exam Exam Vital Signs Date Time Temp Pulse Resp B/P Pulse Ox O2 Delivery O2 Flow Rate FiO2 06/15/16 04:00 97.5 72 21 173/64 98 High Flow NC 8.00 06/15/16 02:27 95 5.00 06/15/16 00:00 97.6 72 22 164/99 96 High Flow NC 6.00 06/14/16 21:55 95 5.00 06/14/16 21:00 95 Nasal Cannula 5.00 06/14/16 20:37 98.6 86 18 174/86 97 High Flow NC 6.00 06/14/16 18:35 98 5.00 06/14/16 16:33 98.1 88 18 144/85 95 High Flow NC 6.00 06/14/16 14:34 97 6.00 06/14/16 11:00 93 10 98 High Flow NC 6.00 06/14/16 10:25 95 6.00 06/14/16 08:05 97.8 89 18 173/92 96 High Flow NC 6.00 06/14/16 08:00 97 High Flow NC 6.00 I & O 06/15/16 07:00 Intake Total 2230 ml Output Total 3250 ml Balance -1020 ml General Appearance: No Apparent Distress HEENT: Normal ENT Inspection Pharynx Normal Neck: No JVD Respiratory: Decreased Breath SoundsNo Rhonci, No Wheezing Cardiovascular: Regular Rate, Rhythm No Murmur Capillary Refill: Less Than 3 Seconds Peripheral Pulses: 2+ Radial Pulses (R), 2+ Radial Pulses (L) Gastrointestinal: normal bowel sounds non tender Extremity: Pedal Edema (resolving) Neurologic/Psychiatric: Alert Skin: Normal Color Warm/Dry Results Lab Laboratory Tests 06/14/16 03:30 06/14/16 03:50 06/15/16 04:22 Assessment/Plan Assessment/Plan pneumonia with sepsis -- CAP -- PT has hx of pseudomonas -Levaquin COPDAE -continue SVNs and solumedrol Acute on chronic respiratory failure -noninvasive ventilation - will try to arrange -If pt is agreeable he would benefit from vent to mask at home. -Pt is high risk of sudden without vent to mask Atelectasis -Change SVN to easy PAP -IS Clinical Quality Measures DVT/VTE Risk/Contraindication: Risk Factor Score Per Nursin RFS Level Per Nursing on Admit: 4+=Very High EDGARDO THORNTON DO Jun 15, 2016 08:01
--- NOTE | 2016-06-15 08:21 | Progress Note (SOAP) ---
WILL SANDOVAL MEDICAL STUDENT 06/15/16 0821: Subjective Subjective/Events-last exam Mr. Alonso reports that his breathing continues to improve. He was able to sleep better outside of the ICU (still sleeping well despite our discontinuation of his zolpidem), and reports that he can now get out of bed to go to the bathroom without resulting in respiratory distress. He does turn up his NC flow rate with this exertion and he proceeds carefully, but this is a marked improvement since the beginning of this week. He is tolerating his medications well, and his chronic pain has been better tolerated in the past 24 hours despite a slight decrease in the use of his PRN Lortab. Review of Systems General: No Chills, No Night Sweats, No Fatigue (sleeping better due to transfer to floor status from ICU) HEENT: No Head Aches Pulmonary: Dyspnea (Continues to improve, he can now ambulate to go to the bathroom without an episode of respiratory distress) Cardiovascular: No: Chest Pain Gastrointestinal: No: Abdominal Pain, Nausea, Vomiting Chronic polyarthritis, stable Objective Exam Vital Signs Date Time Temp Pulse Resp B/P Pulse Ox O2 Delivery O2 Flow Rate FiO2 06/15/16 04:00 97.5 72 21 173/64 98 High Flow NC 8.00 06/15/16 02:27 95 5.00 06/15/16 00:00 97.6 72 22 164/99 96 High Flow NC 6.00 06/14/16 21:55 95 5.00 06/14/16 21:00 95 Nasal Cannula 5.00 06/14/16 20:37 98.6 86 18 174/86 97 High Flow NC 6.00 06/14/16 18:35 98 5.00 06/14/16 16:33 98.1 88 18 144/85 95 High Flow NC 6.00 06/14/16 14:34 97 6.00 06/14/16 11:00 93 10 98 High Flow NC 6.00 06/14/16 10:25 95 6.00 I & O 06/15/16 07:00 Intake Total 2230 ml Output Total 3250 ml Balance -1020 ml Capillary Refill : NONELess Than 3 Seconds General Appearance: No Apparent Distress Obese Neck: No JVD Respiratory: Chest Non Tender Wheezing (some minimal wheezing, but airflow is now audible in the lower lung zones (an improvement from prior exams)) Cardiovascular: Regular Rate, Rhythm No Murmur Peripheral Pulses: 2+ Radial Pulses (R), 2+ Radial Pulses (L) Gastrointestinal: normal bowel sounds Results Lab Laboratory Tests 06/15/16 04:22: Anion Gap 10, BUN/Creatinine Ratio 24, Basophils # (Auto) 0.0, Basophils (%) ( Auto) 0, Blood Urea Nitrogen 20H, Calcium Level 8.6, Carbon Dioxide Level 30, Chloride Level 101, Creatinine 0.83, Eosinophils # (Auto) 0.0, Eosinophils (%) ( Auto) 0, Estimat Glomerular Filtration Rate > 60, Glucose Level 143H, Hematocrit 38L, Hemoglobin 12.3L, Lymphocytes # (Auto) 0.5L, Lymphocytes (%) ( Auto) 5L, Magnesium Level 2.2, Mean Corpuscular Hemoglobin 30, Mean Corpuscular Hemoglobin Concent 33, Mean Corpuscular Volume 91, Mean Platelet Volume 10.0, Monocytes # (Auto) 0.4, Monocytes (%) (Auto) 4, Neutrophils # (Auto) 9.8H, Neutrophils (%) (Auto) 91H, Phosphorus Level 3.8, Platelet Count 259, Potassium Level 4.5, Red Blood Count 4.12L, Red Cell Distribution Width 14.6H, Sodium Level 141, White Blood Count 10.7 Microbiology 06/10/16 Blood Culture - Preliminary, Resulted No growth 06/13/16 Gram Stain - Final, Resulted 06/13/16 Sputum Culture - Preliminary, Resulted Normal theo Assessment/Plan Assessment/Plan Assess & Plan/Chief Complaint Chronic pain - Morphine 60 mg Q12H - Lortab 10/325 Q4-6H PRN (4 doses in past 24 hrs) for breakthrough pain Mood - Continue IP LITIGATION PARALEGAL baclofen - Holding IP LITIGATION PARALEGAL citalopram for now due to concern for QTc prolongation with levofloxacin - Sleeping better now that he is out of ICU HTN - BP has remained elevated - Increase IP LITIGATION PARALEGAL benazapril from 20 mg PO QDay to 20 mg PO BID - Continue to monitor closely COPD Exacerbation - Plan to switch from solumedrol IV to PO steroid today - Continue IP LITIGATION PARALEGAL guaifenesin - Doing well with gradually decreasing NC flow rate with intermittent increases to compensate during exertion - He has been using EZPAP in his room and reports that he has noticed a marked difference in his lung aeration since starting it GI ppx - Continue IP LITIGATION PARALEGAL docusate - Pantoprazole 20 mg QAM Pneumonia - Levaquin switched from IV to PO (currently on day 4) DVT ppx - SQ enoxaparin Disposition - Plan for discharge tomorrow if his condition continues to improve and if he tolerates transition to PO steroid - D/c instructions to include: continuing PO Levaquin for 6 more days, restarting citalopram after discontinuation of Levaquin, home night time breathing treatment, and follow up with PCP in 7 week - Consider including furosemide PO QDay PRN for edema to due to suspected fluid overload component of his lung findings during this hospitalization Diagnosis/Problems: Clinical Quality Measures DVT/VTE Risk/Contraindication: Risk Factor Score Per Nursin RFS Level Per Nursing on Admit: 4+=Very High AVANI NUNN MD 06/15/16 1240: Supervisory-Addendum Brief Supervisory Addendum Patient seen and evaluated by me with MS4 Will Sandoval, see my notes same day. WILL SANDOVAL MEDICAL STUDENT Jun 15, 2016 08:21 AVANI NUNN MD Jun 15, 2016 12:40
[2016-06-15 08:22] VITALS: BP 179/93
[2016-06-15] MEDS: BACLOFEN 10 MG (LIORESAL) TAB PO SCH ×3 (08:47→20:27)
[2016-06-15] MEDS: BENAZEPRIL 20 MG (LOTENSIN) TAB PO SCH ×2 (08:47→20:27)
[2016-06-15] MEDS: morphine ER 30 MG (MS CONTIN) TAB PO SCH ×2 (08:47→20:27)
[2016-06-15] MEDS: LORATADINE (CLARITIN) 10 MG TAB PO SCH (08:47)
[2016-06-15] MEDS: methylPREDNISolone 40 MG/ML (Solu-MEDROL) VIAL IV SCH (08:47)
[2016-06-15] MEDS: LEVOFLOXACIN 750 MG TAB (LEVAQUIN) PO SCH (11:31)
[2016-06-15] MEDS: ENOXAPARIN 40 MG/0.4 ML (LOVENOX) SYR SC SCH (11:32)
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
[2016-06-15 12:53] VITALS: BP 175/99
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
[2016-06-15 16:39] VITALS: BP 176/82
[2016-06-16] VITALS: BP 178/85
[2016-06-16] MEDS: RT-ALBUTEROL/IPRATROPIUM 3 ML (DUONEB) VIAL INH SCH ×3 (02:27→10:26)
[2016-06-16 04:00] VITALS: BP 151/82
[2016-06-16] MEDS: HYDROcodone/APAP 10 MG/325 MG (LORTAB) TAB PO PRN (06:14)
[2016-06-16] MEDS: PANTOPRAZOLE 20 MG TABLET (PROTONIX) PO SCH (06:14)
--- NOTE | 2016-06-16 06:56 | Pulmonary Progress Note ---
Subjective Subjective/Events-last exam Pt is feeling improved. No complications noted. Exam Exam Vital Signs Date Time Temp Pulse Resp B/P Pulse Ox O2 Delivery O2 Flow Rate FiO2 06/16/16 02:28 91 5.00 06/16/16 00:00 98.7 63 22 178/85 91 NIV/CPAP 06/15/16 22:24 95 5.00 06/15/16 21:00 High Flow NC 6.00 06/15/16 20:44 98.2 18 97 High Flow NC 6.00 06/15/16 19:20 96 5.00 06/15/16 16:39 98.3 76 22 176/82 95 High Flow NC 6.00 06/15/16 14:36 90 5.00 06/15/16 12:53 97.7 72 24 175/99 95 High Flow NC 5.00 06/15/16 10:06 5.00 06/15/16 09:00 94 High Flow NC 6.00 06/15/16 08:22 98.2 93 20 179/93 94 High Flow NC 6.00 I & O 06/16/16 07:00 Intake Total 3340 ml Balance 3340 ml General Appearance: No Apparent Distress Obese HEENT: Normal ENT Inspection Pharynx Normal Neck: No JVD Respiratory: Chest Non Tender Wheezing (some minimal wheezing, but airflow is now audible in the lower lung zones (an improvement from prior exams)) Cardiovascular: Regular Rate, Rhythm No Murmur Capillary Refill: Less Than 3 Seconds Peripheral Pulses: 2+ Radial Pulses (R), 2+ Radial Pulses (L) Gastrointestinal: normal bowel sounds Extremity: Pedal Edema (resolving) Neurologic/Psychiatric: Alert Skin: Normal Color Warm/Dry Results Lab Laboratory Tests 06/15/16 04:22 Assessment/Plan Assessment/Plan pneumonia with sepsis -- CAP -- PT has hx of pseudomonas -Levaquin COPDAE -continue SVNs and prednisone taper Acute on chronic respiratory failure -start noninvasive ventilation -as out patient - Atelectasis -Change SVN to easy PAP -IS Clinical Quality Measures DVT/VTE Risk/Contraindication: Risk Factor Score Per Nursin RFS Level Per Nursing on Admit: 4+=Very High EDGARDO THORNTON DO Jun 16, 2016 06:56
[2016-06-16] MEDS ORDERED: predniSONE 10 MG TAB PO SCH (07:00)
[2016-06-16] MEDS: BREO ELLIPTA IH SCH (07:03)
[2016-06-16 08:00] VITALS: BP 180/71
--- NOTE | 2016-06-16 08:46 | Progress Note (SOAP) ---
WILL SANDOVAL MEDICAL STUDENT 06/16/16 0846: Subjective Subjective/Events-last exam Mr. Alonso is doing very well this morning. He tolerated his nighttime breathing treatment very well, and he is now on less O2 by NC than his baseline at home. He has also been steadily improving in his ability to tolerate activity with caution and by temporarily increasing his NC flow rate. We discussed that his BP has been elevated in the past couple of days despite restarting and increasing the dose of his benazapril. He is open to increasing his antihypertensive temporarily, and he is able to check his blood pressure at home (he keeps a detailed log) for reference at his outpatient hospital follow- up. Review of Systems General: No Chills, No Night Sweats, No Malaise Pulmonary: No Dyspnea, No Pleuritic Chest Pain Cardiovascular: No: Chest Pain, Palpitations Gastrointestinal: No: Abdominal Pain, Nausea, Vomiting Genitourinary: No Dysuria Neurological: No: Numbness, Weakness Chronic polyarthritis, stable Objective Exam Vital Signs Date Time Temp Pulse Resp B/P Pulse Ox O2 Delivery O2 Flow Rate FiO2 06/16/16 07:11 97 5.00 06/16/16 07:10 97 5.00 06/16/16 07:05 98 5.00 06/16/16 04:05 84 17 96 High Flow NC 10.00 06/16/16 04:00 98.7 75 13 151/82 89 NIV/CPAP 06/16/16 02:28 91 5.00 06/16/16 00:00 98.7 63 22 178/85 91 NIV/CPAP 06/15/16 22:24 95 5.00 06/15/16 21:00 High Flow NC 6.00 06/15/16 20:44 98.2 18 97 High Flow NC 6.00 06/15/16 19:20 96 5.00 06/15/16 16:39 98.3 76 22 176/82 95 High Flow NC 6.00 06/15/16 14:36 90 5.00 06/15/16 12:53 97.7 72 24 175/99 95 High Flow NC 5.00 06/15/16 10:06 5.00 06/15/16 09:00 94 High Flow NC 6.00 I & O 06/16/16 06:59 Intake Total 3590 ml Balance 3590 ml Capillary Refill : NONELess Than 3 Seconds General Appearance: No Apparent Distress Respiratory: Chest Non Tender Wheezing (mild end-expiratory wheeze, good air movement compared to exam 2 days ago, stable from exam yesterday) Cardiovascular: Regular Rate, Rhythm No Edema No JVD No Murmur Peripheral Pulses: 2+ Radial Pulses (R), 2+ Radial Pulses (L) Gastrointestinal: normal bowel sounds non tender Neurologic/Psychiatric: Alert Skin: Normal Color Warm/Dry Results Lab Microbiology 06/10/16 Blood Culture - Preliminary, Resulted No growth 06/13/16 Gram Stain - Final, Complete 06/13/16 Sputum Culture - Final, Complete Normal theo Strep, Beta Hemolytic Group F Presumptive Theresa Albicans Assessment/Plan Assessment/Plan Assess & Plan/Chief Complaint Chronic pain - Morphine 60 mg Q12H - Lortab 10/325 Q4-6H PRN for breakthrough pain, plan to address this at next outpatient appointment with PCP Mood - Continue DEPUTY HARBORMASTER baclofen - Holding DEPUTY HARBORMASTER citalopram for now due to concern for QTc prolongation with levofloxacin, plan to restart after finishing his course of levofloxacin - Sleeping continues to be fine even after discontinuing zolpidem earlier this hospitalization HTN - BP has remained elevated, but was lower this morning after his transition to BID benazapril yesterday - Continue benazapril 20 mg PO BID - Plan to log BP at home and revisit at outpatient follow-up COPD Exacerbation - Continue PO steroid - Continue DEPUTY HARBORMASTER guaifenesin - Doing well with gradually decreasing NC flow rate (below his baseline home flow rate this AM) with intermittent increases to compensate during exertion - He has been using EZPAP in his room and reports that he has noticed a marked difference in his lung aeration since starting it - Tolerated night-time breathing assistance well GI ppx - Continue DEPUTY HARBORMASTER docusate - Pantoprazole 20 mg QAM Pneumonia - Continue PO levofloxacin (day 09/06) DVT ppx - SQ enoxaparin Disposition - Plan for discharge today - D/c instructions to include: continuing PO Levaquin for 6 more days, restarting citalopram after discontinuation of Levaquin, home night time breathing treatment, and follow up with PCP in 7 week - Consider including furosemide PO QDay PRN for edema to due to suspected fluid overload component of his lung findings during this hospitalization Diagnosis/Problems: Clinical Quality Measures DVT/VTE Risk/Contraindication: Risk Factor Score Per Nursin RFS Level Per Nursing on Admit: 4+=Very High AVANI NUNN MD 06/16/16 1643: Supervisory-Addendum Brief Supervisory Addendum I personally interviewed and examined the patient, please see my notes for documentation. WILL SANDOVAL MEDICAL STUDENT Jun 16, 2016 08:46 AVANI NUNN MD Jun 16, 2016 16:43
[2016-06-16] MEDS: morphine ER 30 MG (MS CONTIN) TAB PO SCH (09:06)
[2016-06-16] MEDS: BACLOFEN 10 MG (LIORESAL) TAB PO SCH ×2 (09:06→13:02)
[2016-06-16] MEDS: LORATADINE (CLARITIN) 10 MG TAB PO SCH (09:06)
[2016-06-16] MEDS: BENAZEPRIL 20 MG (LOTENSIN) TAB PO SCH (09:06)
[2016-06-16] MEDS: LEVOFLOXACIN 750 MG TAB (LEVAQUIN) PO SCH (10:37)
[2016-06-16] MEDS: ENOXAPARIN 40 MG/0.4 ML (LOVENOX) SYR SC SCH (10:37)
[2016-06-16 12:00] VITALS: BP 162/73
[2016-06-16] MEDS ORDERED: PRD10T PO (12:11)
[2016-06-16] MEDS ORDERED: BENA20TA2 PO (12:11)
[2016-06-16] MEDS ORDERED: LEVO750T39 PO (12:11)
--- NOTE | 2016-06-16 12:13 | Discharge Instructions ---
Discharge [facility] Discharge Medications New, Converted or Re-Newed RX: Transmitted to Pharmacy New Medications: Levofloxacin (Levofloxacin) 750 Mg Tablet 750 MG PO DAILY@1100 #5 Ref 0 TAB Prednisone (Prednisone) 10 Mg Tab 0 PO DAILY@0700 Take 6 tabs(60mg)daily, decrease by 1 tab(10mg) every other day. #42 Ref 0 TAB Changed Medications: Benazepril HCl (Benazepril HCl) 20 Mg Tablet 20 MG PO BID #60 Ref 0 TAB (Changed from: DAILY; Refills: ) Continued Medications: Albuterol Sulfate (Ventolin Hfa Common Canister) 18 Gm Hfa.aer.ad 2 PUFF IH Q4H PRN SHORTNESS OF BREATH Aspirin/Acetaminophen/Caffeine (Excedrin Migraine Caplet) 1 Each Tablet 1 TAB PO DAILY PRN PRN HEADACHE TAB Baclofen (Baclofen) 10 Mg Tablet 10 MG PO TID TAB Calcium Carbonate/Vitamin D3 (Calcium 600 + Vit D 200 Tablet) 1 Each Tablet 1 TAB PO BID TAB Cetirizine HCl (Allergy Relief) 10 Mg Tablet 10 MG PO DAILY TAB Citalopram Hydrobromide (Citalopram HBr) 20 Mg Tablet 20 MG PO DAILY Docusate Sodium (Colace) 100 Mg Capsule 100 MG PO DAILY PRN CONSTIPATION CAP Fluticasone/Vilanterol (Breo Ellipta 100-25 Mcg INH) 1 Each Blst.w.dev 1 PUFF IH DAILY Furosemide (Furosemide) 20 Mg Tablet 20 MG PO DAILY PRN FLUID RETENTION TAB Gluc Kurtz/Chondro Kurtz A/Vit C/Mn (Glucosamine 1,500 Complex Cp) 1 Each Capsule 1 CAP PO DAILY CAP Guaifenesin (Mucus Relief) 400 Mg Tablet 400 MG PO Q4H PRN CONGESTION Hydrocodone/Acetaminophen (Hydrocodon-Acetaminophn 10-325) 1 Each Tablet 1 TAB PO Q4H PRN PAIN Ibuprofen (Ibuprofen) 200 Mg Tablet 200 MG PO Q4H PRN FEVER TAB Morphine Sulfate (Morphine Sulfate ER) 60 Mg Tablet.er 60 MG PO Q12H Multivits-Minerals/FA/Lycopene (One Daily For Men Tablet) 1 Each Tablet 1 TAB PO DAILY TAB Omeprazole (Omeprazole) 20 Mg Capsule.dr 20 MG PO DAILY Potassium Chloride (Potassium Chloride) 10 Meq Tab.er.prt 10 MEQ PO DAILY PRN WITH FUROSEMIDE Promethazine HCl (Promethazine Tablet) 25 Mg Tablet 25 MG PO Q12H TAB Testosterone (Androgel) 75 Gm Gel..fisheries manager TD DAILY USES 2 PUMPS OF A 1.62% TUBE Testosterone (Androgel) 75 Gm Gel..fisheries manager 20.25 MG TP DAILY APPLIES TO ONE UPPER ARM AND SHOULDER Turmeric Root Extract (Turmeric) 500 Mg Capsule 500 MG PO BID CAP Discontinued Medications: Zolpidem Tartrate (Zolpidem Tartrate) 5 Mg Tablet 5 MG PO HS PRN SLEEP TAB Patient Instructions Goal/Follow Up Appt: Follow up with Dr. Conroy 06/20 at 11 am. Patient Instructions: Hold your citalopram until you are done with levofloxacin (antibiotic) due to a possible drug interaction. Return to The Hospital For: Fever, worsening shortness of breath Activity & Diet Discharge Diet: Regular Diet Activity as Tolerated: Yes Copy Copies To 1: SARA CONROY MD, BETHANY N MD Jun 16, 2016 12:12 pm
--- NOTE | 2016-06-16 12:42 | Physician Query-General Query ---
Physician Query-General Query to Physician: [facility] SOP Coding Query Via [facility] D4 Conflicting Diagnosis Template The medical record reflects the following clinical scenario: History/Risk factors: (COPD with Acute Bronchitis) Clinical Findings: (06/13 xray showing interval development mild bibasilar atelectasis versus infiltrate) Treatment: (IV Cefepime 50ml and Levaquin 750mg) Question: Do you agree with the impression of (Pneumonia) per (Dr. Acevedo)? Please document a response in Progress Notes or Discharge Summary. 1. Yes ___ 2. No ___ 3. Other, with explanation of clinical findings 4. Clinically undetermined, no explanation for clinical findings In responding to this query, please exercise your independent professional judgment. The purpose of this communication is to more accurately reflect the complexity of your patients condition. The fact that a question is asked does not imply that any particular answer is desired or expected. Thank you for your timely response to this clarification. THIS PHYSICIAN QUERY FORM IS A PERMANENT PART OF THE MEDICAL RECORD PHYSICIAN RESPONSE: Based on the clinical findings in the record, please respond to the query above on this document as an addendum. Possible, probable, or questionable diagnosis can be coded for INPATIENTS ONLY. Physician Response: Agree with assessment of community acquired pneumonia Physician Response Agree with assessment of community acquired pneumonia If you have questions please contact: Oracle Manager:Marielos iRvera [facility],CCDS Ext:[phone] Thank you for your time and cooperation. Clinical Cardiovascular Surgical Tech/Oracle Manager This is a permanent part of the medical record MARIELOS RIVERA Jun 16, 2016 12:42 AVANI NUNN MD Jun 16, 2016 16:47
--- NOTE | 2016-06-16 12:54 | Physician Query-General Query ---
Physician Query-General Query to Physician: [facility] SOP Coding Query Via [facility] D4 Conflicting Diagnosis Template The medical record reflects the following clinical scenario: History/Risk factors: (COPD/Emphysema on supplemental oxygen at home) Clinical Findings: (Blood gas showing PH 7.27/PCO2 56) Treatment: (Transferred to ICU on Non invasive vent(BiPAP)) Question: Do you agree with the impression of (Acute on chronic respiratory failure) per ( Dr. Acevedo)? Please document a response in Progress Notes or Discharge Summary. 1. Yes ___ 2. No ___ 3. Other, with explanation of clinical findings 4. Clinically undetermined, no explanation for clinical findings In responding to this query, please exercise your independent professional judgment. The purpose of this communication is to more accurately reflect the complexity of your patients condition. The fact that a question is asked does not imply that any particular answer is desired or expected. Thank you for your timely response to this clarification. THIS PHYSICIAN QUERY FORM IS A PERMANENT PART OF THE MEDICAL RECORD PHYSICIAN RESPONSE: Based on the clinical findings in the record, please respond to the query above on this document as an addendum. Possible, probable, or questionable diagnosis can be coded for INPATIENTS ONLY. Physician Response: Physician Response Agree with acute on chronic respiratory failure If you have questions please contact: Machining Manager:Marielos Rivera [facility],CCDS Ext:[phone] Thank you for your time and cooperation. Clinical Ignition Specialist/Machining Manager This is a permanent part of the medical record MARIELOS RIVERA Jun 16, 2016 12:54 AVANI NUNN MD Jun 16, 2016 16:48
--- NOTE | 2016-06-16 13:07 | Physician Query-General Query ---
Physician Query-General Query to Physician: [facility] SOP Coding Query Via [facility] Exhibit D4 Conflicting Diagnosis Template The medical record reflects the following clinical scenario: History/Risk factors: (COPD with acute bronchitis) Clinical Findings: (WBC 13.9, Bands 14, Pulse 110) Treatment: (IV Rocephin and Azithromycin IV 500ml.) Question: Do you agree with the impression of (Sepsis ) per (Dr. Acevedo)? Please document a response in Progress Notes or Discharge Summary. 1. Yes ___ 2. No ___ 3. Other, with explanation of clinical findings 4. Clinically undetermined, no explanation for clinical findings In responding to this query, please exercise your independent professional judgment. The purpose of this communication is to more accurately reflect the complexity of your patients condition. The fact that a question is asked does not imply that any particular answer is desired or expected. Thank you for your timely response to this clarification. THIS PHYSICIAN QUERY FORM IS A PERMANENT PART OF THE MEDICAL RECORD PHYSICIAN RESPONSE: Based on the clinical findings in the record, please respond to the query above on this document as an addendum. Possible, probable, or questionable diagnosis can be coded for INPATIENTS ONLY. Physician Response: Physician Response Agree with diagnosis of sepsis If you have questions please contact: Sheet Rock Hanger:Marielos Rivera [facility] Ext:[phone] Thank you for your time and cooperation. 

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
== END 2016-06-16 13:40 | disposition home or self-care (01) | DRG 871 ==
LOC: EDUNIT# 17:17 → ER 17:18 → 4TH 22:11 → ICU 06-12 09:50 → 4TH 06-14 11:43
PROVIDERS: ADMIT Family Medicine; ATTEND Family Medicine
DX: A41.9 Sepsis, unspecified organism (principal); J44.0 Chronic obstructive pulmonary disease with (acute) lower respiratory infection; J18.9 Pneumonia, unspecified organism; J20.9 Acute bronchitis, unspecified; J96.20 Acute and chronic respiratory failure, unspecified whether with hypoxia or hypercapnia; J44.1 Chronic obstructive pulmonary disease with (acute) exacerbation; E03.9 Hypothyroidism, unspecified; M54.9 Dorsalgia, unspecified; G89.29 Other chronic pain; I10 Essential (primary) hypertension; M19.90 Unspecified osteoarthritis, unspecified site; Q05.9 Spina bifida, unspecified; E87.70 Fluid overload, unspecified; Z99.81 Dependence on supplemental oxygen; Z87.891 Personal history of nicotine dependence
CPT/HCPCS: 36415; 71010; 80048; 80053; 81000; 82805; 83605; 83690; 83735; 83880; 84100; 84484; 85007; 85025; 85027; 85379; 87040; 87070; 87205; 87804; 93005; 94640; 94660; 94760; 96361; 96365; 96375

== ENCOUNTER → 2017-01-19 | Outpatient (CLI) | payer MEDICARE ==
[~2017-01-19] MED LIST changes: +ALB0.5V IH; +ASPI-789 PO; +BACL10TA PO; +BENA20TA2 PO; +CALC-6 PO; +CETI-214 PO; +CITA20TA7 PO; +DOCU-143 PO; +FLUT1AER IH; +FURO20TA4 PO; +GLUC1CAP37 PO; +GLUCOSAMINE 1,1 EACH PO; +GUAI400T71 PO; +HYDR-3820 PO; +IBUP-2055 PO; +LEVO750T39 PO; +LORA10TA7 PO; +MORP60CP12 PO; +MORP60TA52 PO; +MULT-851 PO; +OMEP20CA12 PO; +POTA10TA36 PO; +PROM25TA14 PO; +RT-ALBUINH IH; +RT-ALBUTEROL SULF 2.5 MG/3 ML PRE-MIX VIAL IH ONE; +TEST75GE2 TD; +TEST75GE3 TP; +TURM500C7 PO; +UMEC62.5 IH; +ZOLP5TAB7 PO; +[UNRECOGNIZED DRUG - CODE] PO; +[UNRECOGNIZED DRUG - CODE] PO
== END ==
LOC: RT 12:45
PROVIDERS: ATTEND Nurse Practitioner Family
DX: J96.20 Acute and chronic respiratory failure, unspecified whether with hypoxia or hypercapnia (principal); J44.9 Chronic obstructive pulmonary disease, unspecified; J30.2 Other seasonal allergic rhinitis
CPT/HCPCS: 94060; 94640; 94726; 94729

== ENCOUNTER 2018-06-11 16:00 | Inpatient (IN) | payer MEDICARE ==
[2018-06-11] VITALS (7 sets, daily range): BP systolic 92–150; BP diastolic 60–100
[~2018-06-11] VITALS: Ht 172.7 cm; Wt 90.7 kg
--- OUTSIDE RECORDS SUMMARY | 2018-06-11 16:04 | XMS REPORT | Clinical Summary ---
Author Author [facility] Organization [facility] Address Unknown Phone Unavailable Care Team Providers Care Stockholder Name Role Phone Roderick Patton MD PCP Source Comments Some departments are not documenting in the electronic medical record. If you do not see the information that you expected, contact Release of Information in the Health Information Management department at [phone] for further assistance in locating additional records.[facility] Allergies Not on File Medications Not on file Active Problems Not on file Social History Date Tobacco Use Types Packs/Day Years Used Never Assessed Sex Assigned at Date Recorded Not on file Industry Job Start Date Occupation Not on file Not on file Not on file Travel End Travel History Travel Start No recent travel history available. Last Filed Vital Signs Not on file Plan of Treatment Health Maintenance Due Date Last Done Comments HEPATITIS C SCREENING 1960 PHYSICAL (COMPREHENSIVE) 09/12/1966 EXAM HIV SCREENING 09/12/1974 DTAP/TDAP VACCINES (1 - 09/12/1977 Tdap) COLORECTAL CANCER 09/12/2009 SCREENING SHINGLES RECOMBINANT 09/12/2009 VACCINE (1 of 2) INFLUENZA VACCINE 11/28/2017 Results Not on filefrom Last 3 Months
--- OUTSIDE RECORDS SUMMARY | 2018-06-11 16:06 | XMS REPORT ---
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 Name Role Phone SARA CONROY Unavailable PROBLEMS Type Condition ICD9-CM Code [id number] Code Onset Dates Condition Status SNOMED Code Problem Chronic pain syndrome G89.4 Active 207469177 Problem Low serum testosterone E29.1 Active 697229743 Problem Back pain M54.9 Active 467290641 Problem Essential hypertension I10 Active 10516959 Problem Chronic obstructive pulmonary disease, unspecified J44.9 Active 09067716 ALLERGIES Substance Reaction Event Type Date Status Tramadol HCl itching Drug Allergy Feb, Active Soma Makes pt mean Drug Allergy Feb, Active Boniva rash Drug Allergy Feb, Active Fentanyl Patches Unknown Non Drug Allergy Feb, Active ENCOUNTERS Encounter Location Date Diagnosis [place] [address] [address]- [address] Feb, Back pain M54.9 and Chronic obstructive pulmonary disease, unspecified J44.9 [facility] [address] [place] [place] [id number] [place] [address] 61964- 9784 Feb, Back pain M54.9 [facility] [id number] [place] [address] 59449- 7863 Jan, Encounter for immunization Z23 [facility] [id number] [place] [address] 62106- 8167 Jan, Back pain M54.9 [facility] [address] [address]- 1610 Dec, Back pain M54.9 [facility] [id number] [place] [address] 49664- 9655 Nov, Back pain M54.9 [place] [address] [place] [id number] [place] [address] 05127- 6979 Nov, Chronic obstructive pulmonary disease, unspecified J44.9 and Essential hypertension I10 [place] [address] [id number] [place] [address] 81809- 6915 Oct, Back pain M54.9 [place] [address] 72830- 7263 Sep, Back pain M54.9 [place] [address] 37314- 8405 August, Back pain M54.9 [place] [address] 21426- 3404 Jul, Back pain M54.9 [place] [address] 67894- 3076 Jul, Medicare annual wellness visit, initial Z00.00 ; Chronic obstructive pulmonary disease, unspecified J44.9 ; Back pain M54.9 ; Chronic pain syndrome G89.4 ; Essential hypertension I10 ; Low serum testosterone E29.1 ; Smoking history Z87.891 and Encounter for immunization Z23 [place] [address] [place] [id number] [place] [address] 85759- 2446 Jul, [place] [address] [place] [id number] [place] [address] 48554- 1677 Jun, Back pain M54.9 [place] [address] [place] [id number] [place] [address] 23186- 7709 May, Back pain M54.9 [place] [address] 63660- 3607 13 May, 2017 Exposure to the flu Z20.828 [place] [address] [place] [id number] [place] [address] 03498- 0077 05 May, 2017 Chronic pain syndrome G89.4 ; Back pain M54.9 and Chronic obstructive pulmonary disease, unspecified J44.9 [facility] [address] [facility] [id number] [place] [address] 6401 May, Back pain M54.9 [facility] [address] [facility] [id number] [place] [address] 76492- 2226 Apr, Back pain M54.9 [facility] [address] [facility] [id number] [place] [address] 71370- 5886 Mar, Back pain M54.9 [facility] [address] [facility] [id number] [place] [address] 41652- 9535 Feb, Back pain M54.9 [facility] [address] [facility] [id number] [place] [address] 10073- 7459 Jan, Back pain M54.9 [facility] [address] [place] [id number] [place] [address] 34221- 6166 Dec, Chronic obstructive pulmonary disease, unspecified J44.9 and Back pain M54.9 [facility] [address] [facility] [id number] [place] [address] 69683- 1770 Dec, Back pain M54.9 [facility] [address] [facility] [id number] [place] [address] 63013- 1113 Nov, Back pain M54.9 [facility] [address] [place] [id number] [address]- 0070 Oct, Essential hypertension I10 [facility] [address] [facility] [id number] [place] [address] 35579- 4955 Oct, Back pain M54.9 [facility] [address] [facility] [id number] [place] [address] 03752- 9306 Oct, [facility] [address] [facility] [id number] [place] [address] 95117- 0730 Oct, [facility] [address] [facility] [id number] [place] [address]- 9029 Sep, Back pain M54.9 [facility] [id number] [place] [address] 52012- 2558 August, [facility] [address] [place] [id number] [place] [address] 01923- 6128 August, Essential hypertension I10 [facility] [address] [place] [id number] [place] [address] 78800- 9350 August, Other dorsalgia M54.89 [facility] [address] [place] [address] [id number] [place] [address] 53906- 9123 August, Back pain M54.9 ; Chronic obstructive pulmonary disease, unspecified J44.9 and Low serum testosterone E29.1 [facility] [address] [place] [id number] [place] [address] 15930- 7333 Jul, Other dorsalgia M54.89 [facility] [address] [place] [id number] [place] [address] 16494- 0430 Jun, Dorsalgia, unspecified M54.9 [facility] [address] [place] [id number] [place] [address] 11981- 7258 Jun, Dorsalgia, unspecified M54.9 [facility] [address] [place] [id number] [place] [address] 50521- 9686 Jun, [facility] [address] [place] [id number] [place] [address] 35028- 8006 Jun, Chronic obstructive pulmonary disease, unspecified J44.9 [facility] [id number] [place] [address] 23272- 1393 Jun, Back pain M54.9 [facility] [address] [place] [id number] [place] [address] 92339- 3489 May, Chronic obstructive pulmonary disease, unspecified J44.9 [facility] [address] [place] [id number] [place] [address] 26857- 6336 May, [facility] [address] [place] [address] [id number] [place] [address] 57238- 5270 May, Other dorsalgia M54.89 [facility] [address] [place] [id number] [place] [address] 20802- 8719 Apr, [facility] [address] 33303- 5531 Apr, Other dorsalgia M54.89 [facility] [address] 48746- 1426 Mar, Chronic obstructive pulmonary disease, unspecified J44.9 ; Essential hypertension I10 and Back pain M54.9 [facility] [address] [place] [id number] [place] [address] 38156- 3289 Mar, [facility] [address] 22278- 7828 Mar, Dorsalgia, unspecified M54.9 [facility] [address] 33316- 5409 Mar, Edema R60.9 [facility] [address] [place] [id number] [place] [address] 54740- 5949 Feb, [facility] [address] [place] [id number] [place] [address] 32335- 2135 Feb, Other dorsalgia M54.89 [facility] [address] [place] [id number] [place] [address] 61951- 4192 Jan, Encounter for immunization Z23 and Chronic obstructive pulmonary disease, unspecified J44.9 [facility] [address] [place] [id number] [place] [address] 36565- 3825 Jan, [facility] [address] [place] [id number] [place] [address] 97810- 8568 14 Dec, 2015 [facility] [address] [place] [id number] [place] [address] 63500- 3977 Dec, [facility] [address] [place] [id number] [place] [address] 30378- 5311 Dec, Essential hypertension I10 and Back pain M54.9 [facility] [address] [facility] [id number] [place] [address]- 3940 Nov, [facility] [address] [facility] [id number] [place] [address]- 5416 Nov, [facility] [address] [facility] [id number] [place] [address]- 0117 Oct, Other dorsalgia M54.89 [facility] [address] [facility] [id number] [place] [address]- 8780 Oct, [facility] [address] [facility] [id number] [place] [address], [place] [address]- 7498 Sep, [facility] [address] [facility] [id number] [place] [address]- 2553 Sep, [facility] [address] [facility] [id number] [place] [address] 66587- 1699 Sep, [facility] [address] [facility] [id number] [place] [address]- 9569 August, [facility] [address] [facility] [id number] [place] [address]- 0254 August, Other dorsalgia M54.89 [facility] [address] [facility] [id number] [place] [address]- 9546 August, [facility] [address] [facility] [id number] [place] [address]- 5447 August, Chronic obstructive pulmonary disease, unspecified J44.9 and Back pain M54.9 [facility] [address] [facility] [id number] [place] [address]- 8971 August, [facility] [address] [facility] [id number] [place] [address]- 7032 August, [facility] [address] [facility] [id number] [place] [address]- 1028 August, Chronic obstructive pulmonary disease, unspecified J44.9 [facility] [address] [place] [id number] [place] [address] 36744- 2693 Jul, Other dorsalgia M54.89 [facility] [address] [place] [id number] [place] [address] 68692- 6406 Jul, Insomnia G47.00 [facility] [address] 31318- 5196 Jun, Other dorsalgia M54.89 [facility] [address] [place] [id number] [place] [address] 54765- 4094 Jun, Other dorsalgia M54.89 [facility] [address] 97154- 3646 May, COPD (chronic obstructive pulmonary disease) J44.9 and Bronchitis J40 [facility] [address] 79049- 1674 May, Chronic obstructive pulmonary disease, unspecified J44.9 [facility] [address] [place] [id number] [place] [address] 07629- 8960 May, [facility] [address] 43618- 1648 May, Other dorsalgia M54.89 [facility] [address] [place] [id number] [place] [address] 85582- 6650 Apr, Chronic obstructive pulmonary disease, unspecified J44.9 [facility] [address] [place] [id number] [place] [address] 16192- 1052 Apr, [facility] [address] [place] [id number] [place] [address] 98971- 5128 Mar, [facility] [address] [place] [id number] [place] [address] 26919- 1054 Mar, COPD (chronic obstructive pulmonary disease) J44.9 ; Back pain M54.9 and Edema R60.9 [facility] [address] [place] [id number] [place] [address] 80789- 7313 Mar, [facility] [address] [place] [address]- 4122 Mar, [facility] [address] [place] 4543 Feb, [facility] [address] [place] [address]- 0188 Feb, [facility] [address] [place] [address]- 3467 Feb, [facility] [id number] [place] [address] 60658- 0890 Jan, [facility] [address] [place] [id number] [address]- 4849 Jan, [facility] [id number] [place] [address] 47358- 5413 Jan, [facility] [address] [place] [address]- 5917 Dec, Chronic airway obstruction, not elsewhere classified 496 ; Back pain 724.5 ; Flu vaccine need V04.81 and Prophylactic vaccination against streptococcus pneumoniae and influenza V06.6 [facility] [address] [place] [address]- 1858 Dec, [facility] [address] [place] [address]- 8268 Dec, [facility] [address] [place] [address]- 2099 Dec, [facility] [address] [place] 5045 Nov, [facility] [address] [place] 9362 Nov, [facility] [address] [place] [id number] [address]- 1725 Nov, [facility] [address] [id number] [place] [address]- 1005 Oct, [facility] [address] [id number] [place] [address]- 6887 Oct, [facility] [address] [id number] [place] [address]- 9698 Oct, Unspecified arthropathy, 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 and Chronic airway obstruction, not elsewhere classified 496 [facility] [address] [id number] [place] [address]- 1319 Oct, [facility] [address] [id number] [place] [address]- 0495 Sep, [facility] [address] [id number] [place] [address]- 4012 Sep, [facility] [address] [id number] [place] [address]- 7232 Sep, [facility] [address] [id number] [place] [address]- 3646 August, [facility] [address] [id number] [place] [address]- 0953 August, [facility] [address] [facility] [id number] [place] [address]- 1418 August, [facility] [address] [id number] [place] [address]- 9465 August, [facility] [address] [id number] [place] [address]- 2911 August, [facility] [address] [id number] [place] [address]- 1087 Jul, [facility] [address] [id number] [place] [address]- 0993 Jul, [facility] [address] [id number] [place] [address]- 6455 Jun, [facility] [place] [facility] [address] [id number] [place] [address]- 9434 Jun, [facility] [place] [facility] [address] [id number] [place] [address]- 8944 Jun, [facility] [place] [facility] [address] [id number] [place] [address]- 3566 Jun, [facility] [place] [facility] [address] [id number] [place] [address]- 5581 Jun, [facility] [place] [facility] [address] [id number] [place] [address]- 8592 Jun, [facility] [place] [facility] [address] [id number] [place] [address]- 5706 May, [facility] [place] [facility] [address] [id number] [place] [address]- 7995 May, [facility] [place] [facility] [address] [id number] [place] [address]- 5808 May, [facility] [place] [facility] [address] [id number] [place] [address]- 0881 May, [facility] [place] [facility] [address] [facility] [id number] [place] [address]- 5858 May, [facility] [place] [facility] [address] [id number] [place] [address]- 2013 Apr, [facility] [place] [facility] [address] [id number] [place] [address]- 5130 Apr, [facility] [place] [facility] [address] [id number] [place] [address]- 9108 Apr, [facility] [place] [facility] [address] [id number] [place] [address]- 9361 Apr, [facility] [place] [facility] [address] [id number] [place] [address]- 2503 Apr, [facility] [place] [facility] [address] [id number] [place] [address]- 5197 05 Apr, 2014 [facility] [place] [facility] [address] [id number] [place] [address]- 1092 Apr, [facility] [place] [facility] [address] [id number] [place] 2509 Mar, [facility] [place] [facility] [address] [id number] [place] [address]- 1530 Mar, [facility] [place] [facility] [address] [id number] [place] [address]- 1515 Mar, [facility] [place] [facility] [address] [id number] [place] 3611 Mar, [facility] [place] [facility] [address] [id number] [place] [address]- 7647 Mar, [facility] [place] [facility] [address] [id number] [place] [address]- 0345 Mar, [facility] [place] [facility] [address] [id number] [place] [address]- 7430 Mar, [facility] [place] [facility] [address] [id number] [place] [address]- 2796 Mar, [facility] [place] [facility] [address] [id number] [place] [address]- 4043 Mar, [facility] [place] [facility] [address] [id number] [place] [address]- 7452 Mar, [facility] [place] [facility] [address] [id number] [place] [address]- 4844 Feb, [facility] [place] [facility] [address] [id number] [place] [address]- 5799 Feb, [facility] [place] [facility] [address] [id number] [place] [address]- 0116 Jan, [facility] [place] [facility] [address] [id number] [place] [address]- 6747 Jan, [facility] [place] [facility] [address] [id number] [place] [address]- 8868 14 Jan, 2014 [facility] [place] [facility] [address] [id number] [place] [address]- 5171 14 Jan, 2014 [facility] [place] [facility] [address] [id number] [place] [address]- 2212 14 Jan, 2014 [facility] [place] [facility] [address] [id number] [place] [address]- 8035 14 Jan, 2014 [facility] [place] [facility] [address] [id number] [place] [address]- 2738 Jan, [facility] [place] [facility] [address] [id number] [place] [address]- 7584 Jan, [facility] [place] [facility] [address] [id number] [place] [address]- 5562 Jan, [facility] [place] [facility] [address] [id number] [place] [address]- 0469 Jan, [facility] [place] [facility] [address] [id number] [place] [address]- 8958 Jan, [facility] [place] [facility] [address] [id number] [place] [address]- 2269 Jan, [facility] [place] [facility] [address] [id number] [place] [address]- 5877 Dec, [facility] [place] [facility] [address] [id number] [place] [address]- 0805 25 Dec, 2013 [facility] [place] [facility] [address] [id number] [place] [address]- 8646 Dec, [facility] [place] [facility] [address] [id number] [place] [address]- 1422 Dec, [facility] [place] [facility] [address] [id number] [place] [address]- 0067 08 Dec, 2013 [facility] [place] [facility] [address] [id number] [place] [address]- 2026 Nov, [facility] [place] [facility] [address] [id number] [place] [address]- 5073 Nov, [facility] [place] [facility] [address] [id number] [place] [address]- 4053 Nov, [facility] [place] [facility] [address] [id number] [place] [address]- 8636 Nov, [facility] [place] [facility] [address] [id number] [place] [address]- 8889 Oct, [facility] [place] [facility] [address] [id number] [place] [address]- 9703 Oct, [facility] [place] [facility] [address] [id number] [place] [address]- 5622 Oct, [facility] [place] [facility] [address] [id number] [place] [address]- 4629 Oct, [facility] [place] [facility] [address] [id number] [place] [address]- 4417 Oct, [facility] [place] [facility] [address] [id number] [place] [address]- 5233 Oct, [facility] [place] [facility] [address] [id number] [place] [address]- 7496 Oct, [facility] [place] [facility] [address] [id number] [place] [address]- 4094 Oct, [facility] [place] [facility] [address] [id number] [place] [address]- 1037 Oct, [facility] [place] [facility] [address] [id number] [place] [address]- 3868 Oct, [facility] [place] [facility] [address] [id number] [place] [address]- 6633 Sep, [facility] [place] [facility] [address] [id number] [place] [address]- 8536 Sep, [facility] [place] [facility] [address] [id number] [place] [address]- 3302 Sep, [facility] [address] [id number] [place] [address]- 8780 Sep, [facility] [place] [facility] [address] [id number] [place] [address]- 2571 Sep, [facility] [address] [id number] [place] [address]- 8358 Sep, [facility] [place] [facility] [address] [id number] [place] [address]- 2726 August, [facility] [address] [id number] [place] [address]- 6996 August, [facility] [address] [id number] [place] [address]- 5668 August, [facility] [address] [id number] [place] [address] August, [facility] [address] [id number] [place] [address] August, [facility] [place] [facility] [address] [id number] [place] [address] August, [facility] [address] [id number] [place] [address] Jul, [facility] [place] [facility] [address] [id number] [place] [address] Jul, [facility] [place] [facility] [address] [id number] [place] [address] Jul, [facility] [place] [facility] [address] [id number] [place] [address] Jul, [facility] [place] [facility] [address] [id number] [place] [address] Jul, [facility] [place] [facility] [address] [id number] [place] [address] Jul, [facility] [place] [facility] [address] [id number] [place] [address] Jul, [facility] [place] [facility] [address] [id number] [place] [address] Jul, [facility] [place] [facility] [address] [id number] [place] [address] Jul, [facility] [place] [facility] [address] [id number] [place] [address] Jun, [facility] [place] [facility] [address] [id number] [place] [address] Jun, [facility] [place] [facility] [address] [id number] [place] [address] Jun, [facility] [place] [facility] [address] [id number] [place] [address] May, [facility] [place] [facility] [address] [id number] [place] [address] May, [facility] [place] [facility] [address] [id number] [place] [address] May, [facility] [place] [facility] [address] [id number] [place] [address] May, [facility] [place] [facility] [address] [id number] [place] [address] May, [facility] [place] [facility] [address] [id number] [place] [address] May, [facility] [place] [facility] [address] [id number] [place] [address] Apr, [facility] [place] [facility] [address] [id number] [place] [address] Apr, [facility] [place] [facility] [address] [id number] [place] [address] Apr, [facility] [place] [facility] [address] [id number] [place] [address] Apr, [facility] [address] [id number] [place] [address] Apr, [facility] [address] [id number] [place] [address] Apr, [facility] [address] [id number] [place] [address] Apr, [facility] [address] [id number] [place] [address] Apr, [facility] [address] [id number] [place] [address] Apr, [facility] [address] [id number] [place] [address] Apr, [facility] [address] [id number] [place] [address] Mar, [facility] [address] [id number] [place] [address] Mar, [facility] [address] [id number] [place] [address] Mar, [facility] [address] [id number] [place] [address] Mar, [facility] [address] [id number] [place] [address]- 5124 Mar, [facility] [address] [id number] [place] [address] 56[address] Mar, [facility] [place] [facility] [address] [id number] [place] [address] Mar, [facility] [place] [facility] [address] [id number] [place] [address] Mar, [facility] [place] [facility] [address] [id number] [place] [address] 3036 Mar, [facility] [place] [facility] [address] [id number] [place] [address] 0987 Mar, [facility] [place] [facility] [address] [id number] [place] [address] 4[address] Mar, [facility] [place] [facility] [address] [id number] [place] [address] 1070 Feb, [facility] [place] [facility] [address] [id number] [place] [address] 0560 Feb, [facility] [place] [facility] [address] [id number] [place] [address] 6537 Feb, [facility] [place] [facility] [address] [id number] [place] [address] 8240 Feb, [facility] [address] [id number] [place] [address] 6120 Feb, [facility] [place] [facility] [address] [id number] [place] [address]- 1873 Feb, [facility] [place] [facility] [address] [id number] [place] [address]- 5516 Feb, [facility] [place] [facility] [address] [id number] [place] [address]- 0975 Feb, [facility] [place] [facility] [address] [id number] [place] [address]- 8105 Feb, [facility] [place] [facility] [address] [id number] [place] [address] 21[address] Feb, [facility] [place] [facility] [address] [id number] [place] [address]- 1539 Feb, [facility] [place] [facility] [address] [id number] [place] [address]- 6471 Feb, [facility] [place] [facility] [address] [id number] [place] [address]- 6150 Jan, [facility] [place] [facility] [address] [id number] [place] [address] 5[address] Jan, [facility] [place] [facility] [address] [id number] [place] [address]- 6848 Jan, [facility] [place] [facility] [address] [id number] [place] [address] Jan, [facility] [place] [facility] [address] [id number] [place] [address]- 5129 Jan, [facility] [place] [facility] [address] [id number] [place] [address]- 9170 Jan, [facility] [place] [facility] [address] [id number] [place] [address]- 0636 Jan, [facility] [place] [facility] [address] [id number] [place] [address]- 7572 Jan, [facility] [place] [facility] [address] [id number] [place] [address]- 1278 Jan, [facility] [place] [facility] [address] [id number] [place] [address]- 1563 27 Dec, 2012 [facility] [place] [facility] [address] [id number] [place] [address]- 9362 18 Dec, 2012 [facility] [place] [facility] [address] [id number] [place] [address]- 4757 17 Dec, 2012 [facility] [place] [facility] [address] [id number] [place] [address]- 5112 11 Dec, 2012 [facility] [place] [facility] [address] [id number] [place] [address]- 2308 05 Dec, 2012 [facility] [place] [facility] [address] [id number] [place] [address]- 3253 Nov, [facility] [place] [facility] [address] [id number] [place] [address] 08 Nov, 2012 [facility] [place] [facility] [address] [id number] [place] [address] Oct, [facility] [place] [facility] [address] [id number] [place] [address] 3905 Oct, [facility] [address] [id number] [place] [address]- 3254 Oct, [facility] [place] [facility] [address] [id number] [place] [address]- 0645 Oct, [facility] [address] [id number] [place] [address] 8641 Oct, [facility] [address] [id number] [place] [address] 7258 Oct, [facility] [address] [id number] [place] [address] 0172 Sep, [facility] [address] [id number] [place] [address]- 2534 Sep, [facility] [address] [id number] [place] [address]- 9067 Sep, [facility] [address] [id number] [place] [address]- 5720 Sep, [facility] [address] [id number] [place] [address]- 8653 Sep, [facility] [address] [id number] [place] [address]- 3768 Sep, [facility] [address] [id number] [place] [address]- 0835 Sep, [facility] [address] [id number] [place] [address]- 2550 August, [facility] [place] [facility] [address] [id number] [place] [address]- 8513 August, [facility] [place] [facility] [address] [id number] [place] [address]- 5696 August, [facility] [address] [id number] [place] [address]- 6756 August, [facility] [address] [id number] [place] [address]- 7648 August, [facility] [place] [facility] [address] [id number] [place] [address]- 8999 August, [facility] [address] [id number] [place] [address]- 6397 Jul, [facility] [place] [facility] [address] [id number] [place] [address]- 7219 Jul, [facility] [address] [id number] [place] [address]- 5203 Jul, [facility] [place] [facility] [address] [id number] [place] [address]- 9474 Jul, [facility] [address] [id number] [place] [address]- 0286 Jul, [facility] [address] [id number] [place] [address]- 5313 Jul, [facility] [address] [id number] [place] [address]- 8427 Jun,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
--- OUTSIDE RECORDS SUMMARY | 2018-06-11 16:06 | XMS REPORT ---
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 Role Phone SARA CONROY Unavailable PROBLEMS Type Condition ICD9-CM Code VYW84-RU Code Onset Dates Condition Status SNOMED Code Problem Chronic pain syndrome G89.4 Active 168820653 Problem Low serum testosterone E29.1 Active 739316204 Problem Back pain M54.9 Active 287567894 Problem Essential hypertension I10 Active 81864721 Problem Chronic obstructive pulmonary disease, unspecified J44.9 Active 34889415 ALLERGIES No Information ENCOUNTERS Encounter Location Date Diagnosis [place] [address] [address]201- 4568 Feb, [place] [address] 01368- 5416 12 Feb, 2018 Back pain M54.9 [place] [address] 73975- 2177 Jan, Encounter for immunization Z23 [place] [address] 19055- 0329 Jan, Back pain M54.9 [facility] [address] 21270- 7163 Dec, Back pain M54.9 [facility] [address] 71496- 9759 Nov, Back pain M54.9 [facility] [address] 31284- 1114 Nov, Chronic obstructive pulmonary disease, unspecified J44.9 and Essential hypertension I10 [place] [address] 27387- 0546 Oct, Back pain M54.9 [facility] [address] [place] [id number] [place] [address] 84010- 2105 Sep, Back pain M54.9 [facility] [address] [place] [id number] [place] [address] 17766- 6164 August, Back pain M54.9 [facility] [address] [place] [id number] [place] [address] 70911- 1826 Jul, Back pain M54.9 [facility] [address] [place] [id number] [place] [address] 55583- 7221 Jul, Medicare annual wellness visit, initial Z00.00 ; Chronic obstructive pulmonary disease, unspecified J44.9 ; Back pain M54.9 ; Chronic pain syndrome G89.4 ; Essential hypertension I10 ; Low serum testosterone E29.1 ; Smoking history Z87.891 and Encounter for immunization Z23 [place] [address] [place] [id number] [place] [address] 82931- 0105 Jul, [facility] [address] [place] [id number] [place] [address] 69214- 4111 Jun, Back pain M54.9 [facility] [address] [place] [id number] [place] [address] 83197- 5038 28 May, 2017 Back pain M54.9 [facility] [address] [place] [id number] [place] [address] 14964- 7262 13 May, 2017 Exposure to the flu Z20.828 [facility] [id number] [place] [address] 64692- 0191 05 May, 2017 Chronic pain syndrome G89.4 ; Back pain M54.9 and Chronic obstructive pulmonary disease, unspecified J44.9 [facility] [address] [place] [id number] [place] [address] 02307- 1436 May, Back pain M54.9 [facility] [address] [place] [id number] [place] [address] 77139- 7855 Apr, Back pain M54.9 [facility] [address] [facility] [id number] [place] [address] 95841- 8678 Mar, Back pain M54.9 [facility] [address] [facility] [id number] [place] [address] 92805- 8422 Feb, Back pain M54.9 [facility] [address] [facility] [id number] [place] [address] 27984- 1313 Jan, Back pain M54.9 [facility] [address] [facility] [id number] [place] [address] 63815- 6300 Dec, Chronic obstructive pulmonary disease, unspecified J44.9 and Back pain M54.9 [facility] [address] [facility] [id number] [place] [address] 83635- 7384 Dec, Back pain M54.9 [facility] [address] [facility] [id number] [place] [address] 24580- 7461 Nov, Back pain M54.9 [facility] [address] [facility] [id number] [place] [address] 84433- 0402 Oct, Essential hypertension I10 [facility] [address] [facility] [id number] [place] [address] 10002- 2099 Oct, Back pain M54.9 [facility] [address] [facility] [id number] [place] [address] 92120- 3250 Oct, [facility] [address] [facility] [id number] [place] [address] 42816- 1137 Oct, [facility] [address] [facility] [id number] [place] [address] 50820- 2734 Sep, Back pain M54.9 [facility] [address] [facility] [id number] [address]- 4303 August, [facility] [address] [facility] [id number] [place] [address] 28945- 4462 August, Essential hypertension I10 [facility] [address] [place] [id number] [place] [address] 92004- 8521 August, Other dorsalgia M54.89 [facility] [address] [place] [id number] [place] [address] 90288- 8889 August, Back pain M54.9 ; Chronic obstructive pulmonary disease, unspecified J44.9 and Low serum testosterone E29.1 [facility] [address] [place] [id number] [place] [address] 26000- 5200 Jul, Other dorsalgia M54.89 [facility] [address] [place] [id number] [place] [address] 83956- 9929 Jun, Dorsalgia, unspecified M54.9 [facility] [address] [place] [id number] [place] [address] 16386- 8245 Jun, Dorsalgia, unspecified M54.9 [facility] [address] [place] [id number] [place] [address] 31539- 0391 Jun, [facility] [address] [place] [id number] [place] [address] 89716- 7233 Jun, Chronic obstructive pulmonary disease, unspecified J44.9 [facility] [address] [place] [id number] [place] [address] 71886- 6266 Jun, Back pain M54.9 [facility] [address] [place] [id number] [place] [address] 41609- 0552 May, Chronic obstructive pulmonary disease, unspecified J44.9 [facility] [id number] [place] [address] 64138- 1373 May, [facility] [address] [place] [id number] [place] [address] 26299- 9292 May, Other dorsalgia M54.89 [facility] [address] [place] [id number] [place] [address] 95868- 0297 Apr, [facility] [address] [place] [id number] [place] [address] 97456- 5053 Apr, Other dorsalgia M54.89 [facility] [address] [place] [id number] [place] [address] 01260- 5683 Mar, Chronic obstructive pulmonary disease, unspecified J44.9 ; Essential hypertension I10 and Back pain M54.9 [facility] [address] [place] [id number] [place] [address] 44215- 6159 Mar, [facility] [address] [place] [id number] [place] [address] 68702- 4680 Mar, Dorsalgia, unspecified M54.9 [facility] [address] [place] [id number] [place] [address] 38538- 2891 Mar, Edema R60.9 [facility] [address] [place] [id number] [place] [address] 30676- 9165 16 Feb, 2016 [facility] [address] [place] [id number] [place] [address] 93055- 6136 Feb, Other dorsalgia M54.89 [facility] [address] [place] [id number] [place] [address] 66805- 5804 25 Jan, 2016 Encounter for immunization Z23 and Chronic obstructive pulmonary disease, unspecified J44.9 [facility] [address] [place] [id number] [place] [address] 44530- 6432 13 Jan, 2016 [facility] [address] [place] [id number] [place] [address] 85681- 2872 14 Dec, 2015 [facility] [address] [place] [id number] [place] [address] 26673- 2540 13 Dec, 2015 [facility] [address] [place] [id number] [place] [address] 81900- 0609 13 Dec, 2015 Essential hypertension I10 and Back pain M54.9 [facility] [id number] [place] [address] 73896- 2943 17 Nov, 2015 [facility] [address] [place] [id number] [place] [address] 35211- 4509 Nov, [facility] [address] [facility] [id number] [address]- 8544 Oct, Other dorsalgia M54.89 [facility] [address] [facility] [id number] [place] [address]- 2865 Oct, [facility] [address] [place] [id number] [address]- 2499 Sep, [facility] [address] [facility] [id number] [place] [address] 18919- 1389 Sep, [facility] [address] [place] [id number] [place] [address] 18706- 8875 Sep, [facility] [address] [place] [id number] [place] [address] 70046- 0271 August, [facility] [address] [place] [id number] [place] [address] 64886- 2183 August, Other dorsalgia M54.89 [facility] [address] [facility] [id number] [address]- 9162 August, [facility] [address] [place] [id number] [place] [address] 64359- 0595 August, Chronic obstructive pulmonary disease, unspecified J44.9 and Back pain M54.9 [facility] [address] [address]- 6358 August, [facility] [address] [facility] [id number] [place] [address]- 9961 August, [facility] [address] [facility] [id number] [place] [address]- 0289 August, Chronic obstructive pulmonary disease, unspecified J44.9 [facility] [address] [place] [id number] [address]- 3206 Jul, Other dorsalgia M54.89 [facility] [address] [place] [id number] [address]- 4236 Jul, Insomnia G47.00 [facility] [address] [place] [id number] [place] [address] 52593- 8126 Jun, Other dorsalgia M54.89 [facility] [address] [place] [id number] [place] [address] 33364- 1866 Jun, Other dorsalgia M54.89 [facility] [address] 58500- 9296 May, COPD (chronic obstructive pulmonary disease) J44.9 and Bronchitis J40 [facility] [address] 78132- 0406 May, Chronic obstructive pulmonary disease, unspecified J44.9 [facility] [address] 00099- 9876 May, [facility] [address] 67878- 9220 May, Other dorsalgia M54.89 [facility] [address] [place] [id number] [place] [address] 49034- 7769 Apr, Chronic obstructive pulmonary disease, unspecified J44.9 [facility] [address] [place] [id number] [place] [address] 92952- 1104 Apr, [facility] [address] [place] [id number] [place] [address] 47174- 5388 Mar, [facility] [address] 38788- 1761 Mar, COPD (chronic obstructive pulmonary disease) J44.9 ; Back pain M54.9 and Edema R60.9 [facility] [address] 57780- 0236 Mar, [facility] [address] [place] [id number] [place] [address] 72307- 7579 Mar, [facility] [address] 72848- 1429 Feb, [facility] [address] [address]- 5903 Feb, [facility] [address] [facility] [id number] 6778 Feb, [facility] [address] [address]- 4860 Jan, [facility] [address] [place] [address] 24624- 3649 Jan, [facility] [address] [place] [address] 50524- 6016 Jan, [facility] [address] [address]- 1927 Dec, Chronic airway obstruction, not elsewhere classified 496 ; Back pain 724.5 ; Flu vaccine need V04.81 and Prophylactic vaccination against streptococcus pneumoniae and influenza V06.6 [facility] [address] [address]- 5465 Dec, [facility] [address] [address]- 8349 Dec, [facility] [address] [address]- 6424 Dec, [facility] [address] [address]- 3421 Nov, [facility] [address] [address]- 5657 Nov, [facility] [address] [address]- 8105 Nov, [facility] [address] [address]- 9833 Oct, [facility] [address] [place] [id number] [address]- 8761 Oct, [facility] [address] [id number] [place] [address]- 7332 Oct, Unspecified arthropathy, 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 and Chronic airway obstruction, not elsewhere classified 496 [facility] [address] [id number] [place] [address]- 4705 Oct, [facility] [address] [id number] [place] [address]- 3323 Sep, [facility] [address] [id number] [place] [address]- 4579 Sep, [facility] [address] [id number] [place] [address]- 1584 Sep, [facility] [address] [facility] [id number] [place] [address]- 6100 August, [facility] [address] [facility] [id number] [place] [address]- 8649 August, [facility] [address] [facility] [id number] [place] [address]- 7422 August, [facility] [address] [facility] [id number] [place] [address]- 6419 August, [facility] [address] [facility] [id number] [place] [address]- 4054 August, [facility] [address] [facility] [id number] [place] [address]- 0472 Jul, [facility] [address] [facility] [id number] [place] [address]- 2177 Jul, [facility] [address] [id number] [place] [address]- 7385 Jun, [facility] [address] [facility] [id number] [place] [address]- 9249 Jun, [facility] [address] [facility] [id number] [place] [address]- 9811 Jun, [facility] [place] [facility] [address] [id number] [place] [address]- 2038 Jun, [facility] [place] [facility] [address] [id number] [place] [address]- 3167 Jun, [facility] [place] [facility] [address] [id number] [place] [address]- 6892 Jun, [facility] [place] [facility] [address] [id number] [place] [address]- 4639 May, [facility] [place] [facility] [address] [id number] [place] [address]- 7258 May, [facility] [place] [facility] [address] [id number] [place] [address]- 4023 May, [facility] [place] [facility] [address] [id number] [place] [address]- 4037 May, [facility] [place] [facility] [address] [id number] [place] [address]- 0503 May, [facility] [place] [facility] [address] [id number] [place] [address]- 4372 Apr, [facility] [place] [facility] [address] [id number] [place] [address]- 5468 Apr, [facility] [place] [facility] [address] [id number] [place] [address]- 5760 Apr, [facility] [place] [facility] [address] [id number] [place] [address]- 0690 Apr, [facility] [place] [facility] [address] [id number] [place] [address]- 0995 Apr, [facility] [place] [facility] [address] [id number] [place] [address]- 9740 Apr, [facility] [place] [facility] [address] [id number] [place] 1112 Apr, [facility] [place] [facility] [address] [id number] [place] [address]- 0833 Mar, [facility] [place] [facility] [address] [id number] [place] [address]- 7838 Mar, [facility] [place] [facility] [address] [id number] [place] 6263 Mar, [facility] [place] [facility] [address] [id number] [place] 4011 Mar, [facility] [place] [facility] [address] [id number] [place] [address]- 8219 Mar, [facility] [place] [facility] [address] [id number] [place] [address]- 0779 Mar, [facility] [place] [facility] [address] [id number] [place] [address]- 1577 Mar, [facility] [place] [facility] [address] [id number] [place] [address]- 4225 Mar, [facility] [place] [facility] [address] [id number] [place] [address]- 6506 Mar, [facility] [place] [facility] [address] [id number] [place] [address]- 4537 Mar, [facility] [place] [facility] [address] [id number] [place] [address]- 8419 Feb, [facility] [place] [facility] [address] [id number] [place] [address]- 6792 Feb, [facility] [place] [facility] [address] [id number] [place] [address]- 0729 Jan, [facility] [place] [facility] [address] [id number] [place] [address]- 4355 Jan, [facility] [place] [facility] [address] [id number] [place] [address]- 2439 Jan, [facility] [place] [facility] [address] [id number] [place] [address]- 1234 14 Jan, 2014 [facility] [place] [facility] [address] [id number] [place] [address]- 2822 14 Jan, 2014 [facility] [place] [facility] [address] [id number] [place] [address]- 1617 14 Jan, 2014 [facility] [place] [facility] [address] [id number] [place] [address]- 6886 Jan, [facility] [place] [facility] [address] [id number] [place] [address]- 5930 Jan, [facility] [place] [facility] [address] [id number] [place] [address]- 5867 Jan, [facility] [place] [facility] [address] [id number] [place] [address]- 3837 Jan, [facility] [place] [facility] [address] [id number] [place] [address]- 2562 Jan, [facility] [place] [facility] [address] [id number] [place] [address]- 3869 Jan, [facility] [place] [facility] [address] [id number] [place] [address]- 1707 Dec, [facility] [place] [facility] [address] [id number] [place] [address]- 3814 Dec, [facility] [place] [facility] [address] [id number] [place] [address]- 7739 Dec, [facility] [place] [facility] [address] [id number] [place] [address]- 4763 Dec, [facility] [place] [facility] [address] [id number] [place] [address]- 6156 Dec, [facility] [place] [facility] [address] [id number] [place] [address]- 7010 Nov, [facility] [place] [facility] [address] [id number] [place] [address]- 9207 Nov, [facility] [place] [facility] [address] [id number] [place] [address]- 1122 Nov, [facility] [place] [facility] [address] [id number] [place] [address]- 1712 Nov, [facility] [place] [facility] [address] [id number] [place] [address]- 0887 Oct, [facility] [place] [facility] [address] [id number] [place] [address]- 2481 Oct, [facility] [place] [facility] [address] [id number] [place] [address]- 9945 Oct, [facility] [place] [facility] [address] [id number] [place] [address]- 8403 Oct, [facility] [place] [facility] [address] [id number] [place] [address]- 8299 Oct, [facility] [place] [facility] [address] [id number] [place] [address]- 3385 Oct, [facility] [place] [facility] [address] [id number] [place] [address]- 9067 Oct, [facility] [place] [facility] [address] [id number] [place] [address]- 2093 Oct, [facility] [place] [facility] [address] [id number] [place] [address]- 8782 Oct, [facility] [place] [facility] [address] [id number] [place] [address] Oct, [facility] [place] [facility] [address] [id number] [address] Sep, [facility] [place] [facility] [address] [id number] [place] [address] Sep, [facility] [place] [facility] [address] [id number] [place] [address] Sep, [facility] [place] [facility] [address] [id number] [place] [address] Sep, [facility] [place] [facility] [address] [id number] [place] [address] Sep, [facility] [place] [facility] [address] [id number] [place] [address] Sep, [facility] [place] [facility] [address] [id number] [place] [address] August, [facility] [place] [facility] [address] [id number] [place] [address] August, [facility] [place] [facility] [address] [id number] [place] [address] August, [facility] [place] [facility] [address] [id number] [place] [address] August, [facility] [place] [facility] [address] [id number] [place] [address] August, [facility] [place] [facility] [address] [id number] [place] [address] August, [facility] [place] [facility] [address] [id number] [place] [address] Jul, [facility] [place] [facility] [address] [id number] [place] [address] Jul, [facility] [place] [facility] [address] [id number] [place] [address] Jul, [facility] [place] [facility] [address] [id number] [place] [address] Jul, [facility] [place] [facility] [address] [id number] [place] [address] Jul, [facility] [place] [facility] [address] [id number] [place] [address] Jul, [facility] [place] [facility] [address] [id number] [place] [address] Jul, [facility] [place] [facility] [address] [id number] [place] [address] Jul, [facility] [place] [facility] [address] [id number] [place] [address] Jul, [facility] [place] [facility] [address] [id number] [place] [address] Jun, [facility] [place] [facility] [address] [id number] [place] [address] Jun, [facility] [place] [facility] [address] [id number] [place] [address]- [address] Jun, [facility] [place] [facility] [address] [id number] [place] [address] May, [facility] [place] [facility] [address] [id number] [place] [address]- [address] May, [facility] [place] [facility] [address] [id number] [place] [address] May, [facility] [place] [facility] [address] [id number] [place] [address]- [address] May, [facility] [place] [facility] [address] [id number] [place] [address]- [address] May, [facility] [place] [facility] [address] [id number] [place] [address] May, [facility] [place] [facility] [address] [id number] [place] [address] Apr, [facility] [place] [facility] [address] [id number] [place] [address] Apr, [facility] [place] [facility] [address] [id number] [place] [address] Apr, [facility] [place] [facility] [address] [id number] [place] [address] Apr, [facility] [place] [facility] [address] [id number] [place] [address]- [address] Apr, [facility] [place] [facility] [address] [id number] [place] [address] Apr, [facility] [address] [id number] [place] [address] Apr, [facility] [address] [id number] [place] [address] Apr, [facility] [address] [id number] [place] [address]- [address] Apr, [facility] [address] [id number] [place] [address]- [address] Apr, [facility] [address] [id number] [place] [address] Mar, [facility] [address] [id number] [place] [address] Mar, [facility] [address] [id number] [place] [address]- [address] Mar, [facility] [address] [id number] [place] [address] Mar, [facility] [address] [id number] [place] [address] Mar, [facility] [address] [id number] [place] [address] Mar, [facility] [address] [id number] [place] [address] 77[address] Mar, [facility] [place] [facility] [address] [id number] [place] [address] Mar, [facility] [address] [id number] [place] [address]- [address] Mar, [facility] [place] [facility] [address] [id number] [place] [address] Mar, [facility] [address] [id number] [place] [address] Mar, [facility] [place] [facility] [address] [id number] [place] [address]- 9478 Feb, [facility] [place] [facility] [address] [id number] [place] [address]- 84[address] Feb, [facility] [place] [facility] [address] [id number] [place] [address] Feb, [facility] [place] [facility] [address] [id number] [place] [address] Feb, [facility] [place] [facility] [address] [id number] [place] [address]- 8779 Feb, [facility] [place] [facility] [address] [id number] [place] [address]- [address] Feb, [facility] [place] [facility] [address] [id number] [place] [address]- 1721 Feb, [facility] [place] [facility] [address] [id number] [place] [address]- 74[address] Feb, [facility] [place] [facility] [address] [id number] [place] [address]- 9447 Feb, [facility] [place] [facility] [address] [id number] [place] [address]- 2136 Feb, [facility] [place] [facility] [address] [id number] [place] [address]- 5247 Feb, [facility] [place] [facility] [address] [id number] [place] [address]- 7222 Feb, [facility] [place] [facility] [address] [id number] [place] [address]- 3515 Jan, [facility] [place] [facility] [address] [id number] [place] [address]- 6655 Jan, [facility] [place] [facility] [address] [id number] [place] [address]- 1609 Jan, [facility] [place] [facility] [address] [id number] [place] [address]- 9326 Jan, [facility] [place] [facility] [address] [id number] [place] [address]- [address]696 18 Jan, 2013 [facility] [place] [facility] [address] [id number] [place] [address]- 6240 18 Jan, 2013 [facility] [place] [facility] [address] [id number] [place] [address]- 6929 15 Jan, 2013 [facility] [place] [facility] [address] [id number] [place] [address]- 6965 15 Jan, 2013 [facility] [place] [facility] [address] [id number] [place] [address]- 5[address] Jan, [facility] [place] [facility] [address] [id number] [place] [address]- [address] 27 Dec, 2012 [facility] [place] [facility] [address] [id number] [place] [address]- 2275 18 Dec, 2012 [facility] [place] [facility] [address] [id number] [place] [address]- 5239 17 Dec, 2012 [facility] [place] [facility] [address] [id number] [place] [address]- 6[address] 11 Dec, 2012 [facility] [place] [facility] [address] [id number] [place] [address]- 0887 05 Dec, 2012 [facility] [place] [facility] [address] [id number] [place] [address]- 9022 Nov, [facility] [place] [facility] [address] [id number] [address] Nov, [facility] [place] [facility] [address] [id number] [place] [address]- 9921 Oct, [facility] [place] [facility] [address] [id number] [place] [address]- 0551 Oct, [facility] [place] [facility] [address] [id number] [place] [address]- 4317 Oct, [facility] [place] [facility] [address] [id number] [place] [address]- 4184 Oct, [facility] [address] [id number] [place] [address]- 3036 Oct, [facility] [address] [id number] [place] [address]- 9412 Oct, [facility] [address] [id number] [place] [address]- 2770 Sep, [facility] [address] [id number] [place] [address]- [address] Sep, [facility] [address] [id number] [place] [address]- 7752 Sep, [facility] [address] [id number] [place] [address]- 7786 Sep, [facility] [address] [id number] [place] [address]- 5294 Sep, [facility] [address] [id number] [place] [address]- 7944 Sep, [facility] [address] [id number] [place] [address]- 2477 Sep, [facility] [address] [id number] [place] [address]- 4785 August, [facility] [address] [id number] [place] [address]- 0879 August, [facility] [address] [id number] [place] [address]- 5470 August, [facility] [place] [facility] [address] [id number] [place] [address]- 4931 August, [facility] [address] [id number] [place] [address]- 6096 August, [facility] [address] [id number] [place] [address]- 9181 August, [facility] [address] [id number] [place] [address]- 4738 Jul, [facility] [place] [facility] [address] [id number] [place] [address]- 6266 Jul, [facility] [place] [facility] [address] [id number] [place] [address]- 8756 Jul, [facility] [place] [facility] [address] [id number] [place] [address]- 7155 Jul, [facility] [address] [id number] [place] [address]- 8837 Jul, [facility] [place] [facility] [address] [id number] [place] [address]- 5386 Jul, [facility] [place] [facility] [address] [id number] [place] [address]- 6238 Jun, [facility] [place] [facility] [address] [id number] [place] [address]- 5663 Jun, [facility] [place] [facility] [address] [id number] [place] [address]- 6994 Jun, [facility] [place] [facility] [address] [id number] [place] [address]- 6106 Jun, [facility] [place] [facility] [address] [id number] [place] [address]- 5290 Jun, [facility] [place] [facility] [address] [id number] [place] [address]- 2096 Jun, [facility] [place] [facility] [address] [id number] [place] [address]- 7940 May, [facility] [place] [facility] [address] [id number] [place] [address]- 7896 May, [facility] [place] [facility] [address] [id number] [place] [address]- 7556 May, [facility] [place] [facility] [address] [id number] [place] [address]- 3197 May, [facility] [address] [id number] [place] [address]- 3295 Apr, [facility] [address] [id number] [place] [address]- 1092 Apr, [facility] [address] [id number] [place] [address]- 3914 Apr, [facility] [address] [id number] [place] [address]- 9079 Apr, [facility] [address] [id number] [place] [address]- 5336 Apr, [facility] [address] [id number] [place] [address]- 6061 Apr, [facility] [address] [id number] [place] [address]- 7996 Apr, [facility] [address] [id number] [place] [address]- 0194 Apr, [facility] [address] [id number] [place] [address]- 7485 Apr, [facility] [address] [id number] [place] [address]- 7899 Mar, [facility] [address] [id number] [place] [address]- 1506 Mar, [facility] [address] [id number] [place] [address]- 8105 Mar, [facility] [address] [id number] [place] [address]- 2124 Mar, [facility] [address] [id number] [place] [address]- 8869 Mar, [facility] [address] [id number] [place] [address]- 6481 Mar, [facility] [place] [facility] [address] [id number] [place] [address]- 7409 Mar, [facility] [place] [facility] [address] [id number] [place] [address]- 1153 Mar, [facility] [place] [facility] [address] [id number] [place] [address]- 9778 Mar, [facility] [place] [facility] [address] [id number] [place] [address]- 4151 Mar, [facility] [place] [facility] [address] [id number] [place] [address]- 3986 Feb, [facility] [place] [facility] [address] [id number] [place] [address]- 1934 Feb, [facility] [place] [facility] [address] [id number] [place] [address]- 2853 Feb, [facility] [place] [facility] [address] [id number] [place] [address]- 2563 Feb, [facility] [place] [facility] [address] [id number] [place] [address]- 6423 Feb, [facility] [place] [facility] [address] [id number] [place] [address]- 4320 15 Feb, 2012 [facility] [place] [facility] [address] [id number] [place] [address]- 9599 14 Feb, 2012 [facility] [place] [facility] [address] [id number] [place] [address]- 4670 Jan, [facility] [place] [facility] [address] [id number] [place] [address]- 3198 Jan, [facility] [place] [facility] [address] [id number] [place] [address]- 7143 Jan, [facility] [place] [facility] [address] [id number] [place] [address]- 7848 29 Jan, 2012 [facility] [place] [facility] [address] [id number] [place] [address]- 5676 Jan, [facility] [place] [facility] [address] [id number] [place] [address]- 0983 29 Jan, 2012 [facility] [place] [facility] [address] [id number] [place] [address]- 5116 Jan, [facility] [place] [facility] [address] [id number] [place] [address]- 8246 Jan, [facility] [place] [facility] [address] [id number] [place] [address]- 0504 18 Jan, 2012 [facility] [place] [facility] [address] [id number] [place] [address]- 3686 Jan, [facility] [place] [facility] [address] [id number] [place] [address]- 5961 27 Dec, 2011 [facility] [place] [facility] [address] [id number] [place] [address]- 7308 20 Dec, 2011 [facility] [place] [facility] [address] [id number] [place] [address]- 5134 17 Dec, 2011 [facility] [place] [facility] [address] [id number] [place] [address]- 3684 06 Dec, 2011 [facility] [place] [facility] [address] [id number] [place] [address]- 5855 05 Dec, 2011 [facility] [place] [facility] [address] [id number] [place] [address]- 8732 02 Dec, 2011 [facility] [place] [facility] [address] [id number] [place] [address]- 5842 30 Nov, 2011 [facility] [place] [facility] [address] [id number] [place] [address]- 1230 Nov, [facility] [place] [facility] [address] [id number] [place] [address]- 8641 Nov, [facility] [place] [facility] [address] [id number] [place] [address]- 6614 Nov, [facility] [place] [facility] [address] [id number] [place] [address]- 6539 Oct, [facility] [address] [id number] [place] [address]- 5061 Oct, [facility] [address] [id number] [place] [address]- 7856 Oct, [facility] [address] [id number] [place] [address]- 6534 Oct, [facility] [address] [id number] [place] [address]- 7432 Oct, [facility] [address] [id number] [place] [address]- 3538 Oct, [facility] [address] [id number] [place] [address]- 8767 Oct, [facility] [address] [id number] [place] [address]- 1483 Oct, [facility] [address] [id number] [place] [address]- 3917 Sep, [facility] [address] [id number] [place] [address]- 6837 Sep, [facility] [address] [id number] [place] [address]- 3081 Sep, [facility] [place] [facility] [address] [id number] [place] [address]- 1820 Sep, [facility] [address] [id number] [place] [address]- 9169 August, [facility] [place] [facility] [address] [id number] [place] [address]- 8229 August, [facility] [place] [facility] [address] [id number] [place] [address]- 7796 Jul, [facility] [place] [facility] [address] [id number] [place] [address]- 9363 Jun, [facility] [address] [id number] [address]- 6700 29 Jun, 2011 [facility] [address]00565[address] [address]- 5465 Jun, [facility] [address] [id number] [address]- 4813 Jun, [facility] [address]00565[address] [address]- 4073 Jun, [facility] [address]00565100[place] [address]- 1125 Jun, [facility] [address]00565[address] [address]- 3244 Jun, [facility] [id number] [place] [address]- 5947 Jun, [facility] [address]00565[address] [address]- 6286 May, [facility] [address]00565[address] [address]- 5847 May, [facility] [address] [id number] [address]- 7334 Mar, IMMUNIZATIONS No Known Immunizations SOCIAL HISTORY Never Assessed REASON FOR VISIT Controlled Med Refill PLAN OF CARE VITAL SIGNS MEDICATIONS Medication Instructions Dosage Frequency Start Date End Date Duration Status Hydrocodone-Acetaminophen 10-325 MG Orally every 4 hours 1 tablet 4h Feb 28 days Active MS Contin 60 mg Orally every 12 hrs 1 tablet 12h Feb, 28 days Active RESULTS No Results PROCEDURES No Known procedures INSTRUCTIONS MEDICATIONS ADMINISTERED No Known Medications MEDICAL [...] pneumonia 2012 Hospitalization History COPD exacerbation, acute bronchitis-[facility] 06/10/16
--- OUTSIDE RECORDS SUMMARY | 2018-06-11 16:07 | XMS REPORT ---
Author Author SARA CONROY [facility] Address [address] [place] [address] Care Team Providers Care Autocad Name Role Phone SARA CONROY Unavailable PROBLEMS Type Condition ICD9-CM Code [id number]-TI Code Onset Dates Condition Status SNOMED Code Problem Chronic pain syndrome G89.4 Active 918635258 Problem Low serum testosterone E29.1 Active 082039080 Problem Back pain M54.9 Active 946210642 Problem Essential hypertension I10 Active 69197227 Problem Chronic obstructive pulmonary disease, unspecified J44.9 Active [id number] ALLERGIES No Information ENCOUNTERS Encounter Location Date Diagnosis [place] [id number] [place] [address] 73660- 7887 Dec, Back pain M54.9 [facility] [id number] [place] [address] 95614- 2418 Nov, Back pain M54.9 [facility] [id number] [place] [address] 46689- 1393 Nov, Chronic obstructive pulmonary disease, unspecified J44.9 and Essential hypertension I10 [facility] [id number] [place] [address] 46367- 6592 Oct, Back pain M54.9 [facility] [id number] [place] [address] 62306- 7482 Sep, Back pain M54.9 [facility] [id number] [place] [address] 09313- 8852 August, Back pain M54.9 [facility] [id number] [place] [address] 12013- 6455 Jul, Back pain M54.9 [facility] [id number] [place] [address] 00247- 8379 Jul, Medicare annual wellness visit, initial Z00.00 ; Chronic obstructive pulmonary disease, unspecified J44.9 ; Back pain M54.9 ; Chronic pain syndrome G89.4 ; Essential hypertension I10 ; Low serum testosterone E29.1 ; Smoking history Z87.891 and Encounter for immunization Z23 [place] [address] 98734- 4197 Jul, [place] [address] 25744- 6524 Jun, Back pain M54.9 [place] [address] 50431- 0166 May, Back pain M54.9 [place] [address] 34745- 6317 13 May, 2017 Exposure to the flu Z20.828 [place] [address] 32669- 1204 05 May, 2017 Chronic pain syndrome G89.4 ; Back pain M54.9 and Chronic obstructive pulmonary disease, unspecified J44.9 [place] [id number] [place] [address] 92833- 3873 May, Back pain M54.9 [place] [id number] [place] [address] 28011- 9548 Apr, Back pain M54.9 [place] [id number] [place] [address] 66796- 6215 Mar, Back pain M54.9 [place] [address] 91951- 9334 Feb, Back pain M54.9 [place] [id number] [place] [address] 25133- 2595 Jan, Back pain M54.9 [place] [address] [place] [address]- 4509 Dec, Chronic obstructive pulmonary disease, unspecified J44.9 and Back pain M54.9 [facility] [id number] [place] [address] 92046- 6676 Dec, Back pain M54.9 [facility] [id number] [place] [address] 32197- 0456 Nov, Back pain M54.9 [facility] [id number] [place] [address] 14384- 3070 Oct, Essential hypertension I10 [facility] [id number] [place] [address] 99886- 0819 Oct, Back pain M54.9 [facility] [id number] [place] [address] 57731- 0914 Oct, [facility] [id number] [place] [address] 42464- 3277 Oct, [facility] [id number] [place] [address] 80126- 2298 Sep, Back pain M54.9 [facility] [id number] [place] [address] 24292- 2686 August, [facility] [id number] [place] [address] 61932- 3083 August, Essential hypertension I10 [facility] [id number] [place] [address] 89065- 9853 August, Other dorsalgia M54.89 [facility] [id number] [place] [address] 39562- 5747 August, Back pain M54.9 ; Chronic obstructive pulmonary disease, unspecified J44.9 and Low serum testosterone E29.1 [facility] [address] [address]- 6658 Jul, Other dorsalgia M54.89 [facility] [id number] [place] [address] 50202- 1212 Jun, Dorsalgia, unspecified M54.9 [facility] [id number] [place] [address] 29610- 6866 Jun, Dorsalgia, unspecified M54.9 [facility] [id number] [place] [address] 00700- 4706 Jun, [facility] [id number] [place] [address] 84712- 5805 Jun, Chronic obstructive pulmonary disease, unspecified J44.9 [facility] [id number] [place] [address] 09839- 0848 Jun, Back pain M54.9 [facility] [id number] [place] [address] 94013- 5340 May, Chronic obstructive pulmonary disease, unspecified J44.9 [facility] [id number] [place] [address] 67766- 6772 May, [facility] [id number] [place] [address] 25744- 7758 May, Other dorsalgia M54.89 [facility] [id number] [place] [address] 94788- 6839 Apr, [facility] [id number] [place] [address] 46952- 7037 Apr, Other dorsalgia M54.89 [facility] [id number] [place] [address] 31320- 0175 Mar, Chronic obstructive pulmonary disease, unspecified J44.9 ; Essential hypertension I10 and Back pain M54.9 [facility] [id number] [place] [address] 16173- 1939 Mar, [facility] [id number] [place] [address] 68316- 0816 Mar, Dorsalgia, unspecified M54.9 [facility] [id number] [place] [address] 45656- 2526 02 Mar, 2016 Edema R60.9 [facility] [id number] [place] [address] 07795- 8283 16 Feb, 2016 [facility] [id number] [place] [address] 50077- 0755 Feb, Other dorsalgia M54.89 [facility] [address] 82683- 3394 25 Jan, 2016 Encounter for immunization Z23 and Chronic obstructive pulmonary disease, unspecified J44.9 [facility] [address] 86929- 8736 13 Jan, 2016 [facility] [id number] [place] [address] 85590- 4093 14 Dec, 2015 [facility] [address] 86020- 3091 13 Dec, 2015 [facility] [id number] [place] [address] 06738- 4209 13 Dec, 2015 Essential hypertension I10 and Back pain M54.9 [facility] [id number] [place] [address] 61397- 3785 17 Nov, 2015 [facility] [id number] [place] [address] 37346- 5300 Nov, [facility] [id number] [place] [address] 28461- 2183 Oct, Other dorsalgia M54.89 [facility] [id number] [place] [address] 83545- 7046 Oct, [facility] [id number] [place] [address] 30060- 3994 Sep, [facility] [id number] [place] [address] 28801- 1991 Sep, [facility] [address] [address]- 8853 Sep, [facility] [id number] [place] [address] 49306- 3527 August, [facility] [id number] [place] [address] 68138- 0952 August, Other dorsalgia M54.89 [facility] [id number] [place] [address] 21393- 3799 August, [facility] [id number] [place] [address] 95689- 4175 August, Chronic obstructive pulmonary disease, unspecified J44.9 and Back pain M54.9 [facility] [id number] [place] [address] 04289- 3009 August, [facility] [id number] [place] [address] 36605- 3222 August, [facility] [id number] [place] [address] 26281- 8478 August, Chronic obstructive pulmonary disease, unspecified J44.9 [facility] [id number] [place] [address] 30707- 3527 Jul, Other dorsalgia M54.89 [facility] [id number] [place] [address] 88480- 4188 Jul, Insomnia G47.00 [facility] [address] [address]- 2887 Jun, Other dorsalgia M54.89 [facility] [id number] [place] [address] 34157- 3518 Jun, Other dorsalgia M54.89 [facility] [address] [address]- 1145 May, COPD (chronic obstructive pulmonary disease) J44.9 and Bronchitis J40 [facility] [id number] [place] [address] 42789- 7048 May, Chronic obstructive pulmonary disease, unspecified J44.9 [facility] [id number] [place] [address] 40121- 3892 May, [facility] [id number] [place] [address] 20578- 5344 May, Other dorsalgia M54.89 [facility] [id number] [place] [address] 00133- 3177 Apr, Chronic obstructive pulmonary disease, unspecified J44.9 [facility] [id number] [place] [address] 15657- 9197 Apr, [facility] [id number] [place] [address] 96599- 5136 Mar, [facility] [id number] [place] [address] 06007- 5001 Mar, COPD (chronic obstructive pulmonary disease) J44.9 ; Back pain M54.9 and Edema R60.9 [facility] [id number] [place] [address] 14568- 8519 Mar, [facility] [id number] [place] [address] 30209- 7247 Mar, [facility] [id number] [place] [address] 87268- 8221 24 Feb, 2015 [facility] [id number] [place] [address] 23184- 8439 Feb, [facility] [id number] [place] [address] 02411- 5834 Feb, [facility] [id number] [place] [address] 57145- 8034 29 Jan, 2015 [facility] [id number] [place] [address] 55330- 2125 Jan, [facility] [address] [address]- 8888 Jan, [facility] [address] [address]- 8001 Dec, Chronic airway obstruction, not elsewhere classified 496 ; Back pain 724.5 ; Flu vaccine need V04.81 and Prophylactic vaccination against streptococcus pneumoniae and influenza V06.6 [facility] [address] [address]- 8001 Dec, [facility] [address] [facility] [id number] [address]- 1089 Dec, [facility] [address] [address]- 1908 Dec, [facility] [address] [address]- 6167 Nov, [facility] [id number] [place] [address] 84986- 3933 Nov, [facility] [address] [address]- 2049 Nov, [facility] [address] [address]- 2875 Oct, [facility] [address] [address]- 5685 Oct, [facility] [address] [address]- 6835 Oct, Unspecified arthropathy, 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 and Chronic airway obstruction, not elsewhere classified 496 [facility] [address] [address]- 6762 Oct, [facility] [address] [address]- 3889 Sep, [facility] [address] [address]- 3303 Sep, [facility] [place] [facility] [address] [id number] [place] [address]- 6514 Sep, [facility] [place] [facility] [address] [id number] [place] [address]- 9602 August, [facility] [place] [facility] [address] [id number] [place] [address]- 4059 August, [facility] [place] [facility] [address] [id number] [place] [address]- 6066 August, [facility] [place] [facility] [address] [id number] [place] [address]- 8377 August, [facility] [place] [facility] [address] [id number] [place] [address]- 4226 August, [facility] [place] [facility] [address] [id number] [place] [address]- 5335 Jul, [facility] [place] [facility] [address] [id number] [place] [address]- 1197 Jul, [facility] [place] [facility] [address] [id number] [place] [address]- 4501 Jun, [facility] [place] [facility] [address] [id number] [address]- 1574 Jun, [facility] [place] [facility] [address] [id number] [place] [address]- 8786 Jun, [facility] [place] [facility] [address] [id number] [address]- 3678 Jun, [facility] [place] [facility] [address] [id number] [place] [address]- 4151 Jun, [facility] [place] [facility] [address] [id number] [place] [address]- 3546 Jun, [facility] [place] [facility] [address] [id number] [address]- 4952 May, [facility] [place] [facility] [address] [id number] [address]- 0054 May, [facility] [place] [facility] [address] [id number] [place] [address]- 1403 May, [facility] [place] [facility] [address] [id number] [place] [address]- 0456 May, [facility] [place] [facility] [address] [id number] [place] [address]- 7436 May, [facility] [place] [facility] [address] [id number] [place] [address]- 6344 Apr, [facility] [place] [facility] [address] [id number] [place] [address]- 8428 Apr, [facility] [place] [facility] [address] [id number] [place] [address]- 7562 Apr, [facility] [place] [facility] [address] [id number] [place] [address]- 2126 Apr, [facility] [place] [facility] [address] [facility] [id number] [place] [address]- 9597 Apr, [facility] [place] [facility] [address] [id number] [place] [address]- 1334 Apr, [facility] [place] [facility] [address] [facility] [id number] [place] [address]- 9342 Apr, [facility] [place] [facility] [address] [id number] [place] [address]- 6893 Mar, [facility] [place] [facility] [address] [id number] [place] [address]- 3444 Mar, [facility] [place] [facility] [address] [id number] [place] [address]- 2913 Mar, [facility] [place] [facility] [address] [id number] [place] [address]- 3215 Mar, [facility] [place] [facility] [address] [id number] [place] [address]- 7015 Mar, [facility] [place] [facility] [address] [id number] [place] [address]- 1617 15 Mar, 2014 [facility] [place] [facility] [address] [id number] [place] [address]- 6293 Mar, [facility] [place] [facility] [address] [id number] [place] [address]- 0581 Mar, [facility] [place] [facility] [address] [id number] [place] [address]- 6138 Mar, [facility] [place] [facility] [address] [id number] [place] [address]- 5868 Mar, [facility] [place] [facility] [address] [id number] [place] [address]- 2711 Feb, [facility] [place] [facility] [address] [id number] [place] [address]- 3343 Feb, [facility] [place] [facility] [address] [id number] [place] [address]- 4689 Jan, [facility] [place] [facility] [address] [id number] [place] [address]- 2802 20 Jan, 2014 [facility] [place] [facility] [address] [id number] [place] [address]- 5984 14 Jan, 2014 [facility] [place] [facility] [address] [id number] [place] [address]- 8807 14 Jan, 2014 [facility] [place] [facility] [address] [id number] [place] [address]- 3952 14 Jan, 2014 [facility] [place] [facility] [address] [id number] [place] [address]- 6951 14 Jan, 2014 [facility] [place] [facility] [address] [id number] [place] [address]- 1175 13 Jan, 2014 [facility] [place] [facility] [address] [id number] [place] [address]- 8648 13 Jan, 2014 [facility] [place] [facility] [address] [id number] [place] [address]- 6023 Jan, [facility] [place] [facility] [address] [id number] [place] [address]- 7560 Jan, [facility] [place] [facility] [address] [id number] [place] 0056 Jan, [facility] [place] [facility] [address] [id number] [place] [address]- 1975 Jan, [facility] [place] [facility] [address] [id number] [place] [address]- 7910 Dec, [facility] [place] [facility] [address] [id number] [place] [address]- 6035 Dec, [facility] [place] [facility] [address] [id number] [place] [address]- 5915 Dec, [facility] [place] [facility] [address] [id number] [place] [address]- 6377 Dec, [facility] [place] [facility] [address] [id number] [place] [address]- 1079 Dec, [facility] [place] [facility] [address] [id number] [place] [address]- 0788 Nov, [facility] [place] [facility] [address] [id number] [place] [address]- 8688 Nov, [facility] [place] [facility] [address] [id number] [place] [address]- 7260 Nov, [facility] [place] [facility] [address] [id number] [place] [address]- 1902 Nov, [facility] [place] [facility] [address] [id number] [place] [address]- 9781 Oct, [facility] [place] [facility] [address] [id number] [place] [address]- 1962 Oct, [facility] [place] [facility] [address] [id number] [place] [address]- 9634 Oct, [facility] [place] [facility] [address] [id number] [place] [address]- 5198 Oct, [facility] [place] [facility] [address] [id number] [place] [address]- 8396 Oct, [facility] [place] [facility] [address] [id number] [place] [address]- 7179 Oct, 2013 [facility] [place] [facility] [address] [id number] [place] [address]- 1474 Oct, [facility] [place] [facility] [address] [id number] [place] [address]- 2437 Oct, [facility] [place] [facility] [address] [id number] [place] [address]- 3349 Oct, [facility] [place] [facility] [address] [id number] [place] [address]- 8961 Oct, [facility] [place] [facility] [address] [id number] [place] [address]- 2816 Sep, [facility] [place] [facility] [address] [id number] [place] [address]- 5532 Sep, [facility] [place] [facility] [address] [id number] [place] [address]- 3455 Sep, [facility] [place] [facility] [address] [id number] [place] [address]- 0930 Sep, [facility] [place] [facility] [address] [id number] [place] [address]- 7171 Sep, [facility] [place] [facility] [address] [id number] [place] [address]- 2177 Sep, [facility] [place] [facility] [address] [id number] [place] [address]- 9677 August, [facility] [place] [facility] [address] [id number] [place] [address]- 2208 August, [facility] [place] [facility] [address] [id number] [place] 4882 August, [facility] [place] [facility] [address] [id number] [place] [address] August, [facility] [place] [facility] [address] [id number] [place] [address] August, [facility] [place] [facility] [address] [id number] [place] [address] August, [facility] [place] [facility] [address] [id number] [place] [address] Jul, [facility] [place] [facility] [address] [id number] [place] [address] Jul, [facility] [place] [facility] [address] [id number] [place] [address] Jul, [facility] [place] [facility] [address] [id number] [place] [address] Jul, [facility] [place] [facility] [address] [id number] [place] [address] Jul, [facility] [place] [facility] [address] [id number] [place] [address] 1991 Jul, [facility] [place] [facility] [address] [id number] [place] [address] Jul, [facility] [place] [facility] [address] [id number] [place] [address] Jul, [facility] [place] [facility] [address] [id number] [place] [address] Jul, [facility] [place] [facility] [address] [id number] [place] [address] Jun, [facility] [place] [facility] [address] [id number] [place] [address] Jun, [facility] [place] [facility] [address] [id number] [place] [address] Jun, [facility] [place] [facility] [address] [id number] [place] [address] May, [facility] [address] [id number] [place] [address] May, [facility] [place] [facility] [address] [id number] [place] [address] May, [facility] [place] [facility] [address] [id number] [place] [address] May, [facility] [place] [facility] [address] [id number] [place] [address] May, [facility] [place] [facility] [address] [id number] [place] [address] May, [facility] [place] [facility] [address] [id number] [place] [address] Apr, [facility] [place] [facility] [address] [id number] [place] [address] Apr, [facility] [address] [id number] [place] [address] Apr, [facility] [place] [facility] [address] [id number] [place] [address] Apr, [facility] [place] [facility] [address] [id number] [place] [address] Apr, [facility] [place] [facility] [address] [id number] [place] [address] Apr, [facility] [place] [facility] [address] [id number] [place] [address] Apr, [facility] [place] [facility] [address] [id number] [place] [address] Apr, [facility] [place] [facility] [address] [id number] [place] [address] Apr, [facility] [place] [facility] [address] [id number] [place] [address] Apr, [facility] [place] [facility] [address] [id number] [place] [address] Mar, [facility] [place] [facility] [address] [id number] [place] [address] Mar, [facility] [place] [facility] [address] [id number] [place] [address] Mar, [facility] [place] [facility] [address] [id number] [place] [address] Mar, [facility] [address] [id number] [place] [address] Mar, [facility] [address] [id number] [place] [address] Mar, [facility] [address] [id number] [place] [address] Mar, [facility] [address] [id number] [place] [address] Mar, [facility] [place] [facility] [address] [id number] [place] [address] Mar, [facility] [address] [id number] [place] [address] Mar, [facility] [place] [facility] [address] [id number] [place] [address] Mar, [facility] [place] [facility] [address] [id number] [address] Feb, [facility] [place] [facility] [address] [id number] [place] [address] Feb, [facility] [place] [facility] [address] [id number] [place] [address] Feb, [facility] [place] [facility] [address] [id number] [place] [address] Feb, [facility] [place] [facility] [address] [id number] [place] [address] Feb, [facility] [place] [facility] [address] [id number] [place] [address] Feb, [facility] [place] [facility] [address] [id number] [place] [address] Feb, [facility] [place] [facility] [address] [id number] [place] [address] Feb, [facility] [place] [facility] [address] [id number] [place] [address] Feb, [facility] [place] [facility] [address] [id number] [place] [address] 10[address] Feb, [facility] [place] [facility] [address] [id number] [place] [address] Feb, [facility] [place] [facility] [address] [id number] [place] [address] Feb, [facility] [place] [facility] [address] [id number] [place] [address] Jan, [facility] [place] [facility] [address] [id number] [place] [address] 1032 Jan, [facility] [place] [facility] [address] [id number] [place] [address] 2325 Jan, [facility] [place] [facility] [address] [id number] [address] Jan, [facility] [place] [facility] [address] [id number] [place] [address] Jan, [facility] [place] [facility] [address] [id number] [address] 18 Jan, 2013 [facility] [place] [facility] [address] [id number] [address] 90[address] 15 Jan, 2013 [facility] [place] [facility] [address] [id number] [place] [address] 8238 15 Jan, 2013 [facility] [place] [facility] [address] [id number] [place] [address] 2541 03 Jan, 2013 [facility] [place] [facility] [address] [id number] [place] [address] 4256 27 Dec, 2012 [facility] [place] [facility] [address] [id number] [place] [address] 2546 18 Dec, 2012 [facility] [place] [facility] [address] [id number] [place] [address] 17 Dec, 2012 [facility] [place] [facility] [address] [id number] [place] [address]- 7698 11 Dec, 2012 [facility] [place] [facility] [address] [id number] [place] [address]- 9427 05 Dec, 2012 [facility] [place] [facility] [address] [id number] [place] [address]- 8627 Nov, [facility] [place] [facility] [address] [id number] [place] [address] 1519 Nov, [facility] [place] [facility] [address] [id number] [place] [address] 4463 Oct, [facility] [place] [facility] [address] [id number] [place] [address]- 3462 Oct, [facility] [place] [facility] [address] [id number] [place] [address] 0708 Oct, [facility] [place] [facility] [address] [id number] [place] [address]- 1403 Oct, [facility] [place] [facility] [address] [id number] [place] [address]- 4041 Oct, [facility] [place] [facility] [address] [id number] [place] [address]- 2012 Oct, [facility] [place] [facility] [address] [id number] [place] [address]- 3066 Sep, [facility] [place] [facility] [address] [id number] [place] [address]- 0699 Sep, [facility] [address] [id number] [place] [address]- 6765 Sep, [facility] [place] [facility] [address] [id number] [place] [address] 9118 Sep, [facility] [place] [facility] [address] [id number] [place] [address]- 1838 Sep, [facility] [place] [facility] [address] [id number] [place] [address] 1884 Sep, [facility] [address] [id number] [place] [address]- 3447 Sep, [facility] [place] [facility] [address] [id number] [place] [address] 1684 August, [facility] [place] [facility] [address] [id number] [place] [address] 2601 August, [facility] [place] [facility] [address] [id number] [place] [address] 9532 August, [facility] [place] [facility] [address] [id number] [place] [address]- 1307 August, [facility] [place] [facility] [address] [id number] [place] [address] 9537 August, [facility] [place] [facility] [address] [id number] [place] [address] 3631 August, [facility] [place] [facility] [address] [id number] [place] [address] 7019 Jul, [facility] [place] [facility] [address] [id number] [place] [address] 1014 Jul, [facility] [place] [facility] [address] [id number] [place] [address] 9214 Jul, [facility] [place] [facility] [address] [id number] [place] [address] 3832 Jul, [facility] [place] [facility] [address] [id number] [place] [address] 2666 08 Jul, 2012 [facility] [address] [id number] [place] [address] 7740 Jul, [facility] [place] [facility] [address] [id number] [place] [address]- 8669 Jun, [facility] [address] [id number] [place] [address] 3750 Jun, [facility] [place] [facility] [address] [id number] [place] [address] 6480 Jun, [facility] [address] [id number] [place] [address] 7900 Jun, [facility] [address] [id number] [place] [address]- 2238 Jun, [facility] [address] [id number] [place] [address]- 8609 Jun, [facility] [address] [id number] [place] [address] 5519 May, [facility] [place] [facility] [address] [id number] [place] [address]- 2071 May, [facility] [address] [id number] [place] [address]- 2859 May, [facility] [place] [facility] [address] [id number] [place] [address] 4257 May, [facility] [place] [facility] [address] [id number] [place] [address]- 7346 Apr, [facility] [place] [facility] [address] [id number] [place] [address]- 6537 Apr, [facility] [place] [facility] [address] [id number] [place] [address]- 8656 Apr, [facility] [place] [facility] [address] [id number] [place] [address]- 5330 Apr, [facility] [place] [facility] [address] [id number] [place] [address] 1238 Apr, [facility] [address] [id number] [place] [address]- 9412 Apr, [facility] [address] [id number] [place] [address] 2136 Apr, [facility] [address] [id number] [place] [address]- 7939 Apr, [facility] [address] [id number] [place] [address] 5419 Apr, [facility] [address] [id number] [place] [address] 0761 Mar, [facility] [address] [id number] [place] [address] 3079 Mar, [facility] [address] [id number] [place] [address] 7568 Mar, [facility] [address] [id number] [place] [address] 3326 Mar, [facility] [address] [id number] [place] [address]- 9517 Mar, [facility] [address] [id number] [place] [address]- 8932 Mar, [facility] [address] [id number] [place] [address] 2342 Mar, [facility] [place] [facility] [address] [id number] [place] [address]- 5895 Mar, [facility] [place] [facility] [address] [id number] [place] [address]- 4020 Mar, [facility] [place] [facility] [address] [id number] [place] [address]- 1313 Mar, [facility] [place] [facility] [address] [id number] [address] 3894 Feb, [facility] [place] [facility] [address] [id number] [place] [address]- 1552 Feb, [facility] [place] [facility] [address] [id number] [address]- 9040 Feb, [facility] [place] [facility] [address] [facility] [id number] [place] [address]- 1740 Feb, [facility] [place] [facility] [address] [id number] [place] [address]- 1308 Feb, [facility] [place] [facility] [address] [id number] [place] [address]- 7451 15 Feb, 2012 [facility] [place] [facility] [address] [id number] [place] [address]- 5494 14 Feb, 2012 [facility] [place] [facility] [address] [facility] [id number] [place] [address]- 3555 Jan, [facility] [place] [facility] [address] [id number] [place] [address]- 1197 Jan, [facility] [place] [facility] [address] [id number] [place] [address]- 0503 Jan, [facility] [place] [facility] [address] [facility] [id number] [place] [address]- 0073 Jan, [facility] [place] [facility] [address] [facility] [id number] [place] [address]- 5656 Jan, [facility] [place] [facility] [address] [facility] [id number] [place] [address]- 9361 29 Jan, 2012 [facility] [place] [facility] [address] [id number] [place] [address]- 4437 Jan, [facility] [place] [facility] [address] [facility] [id number] [place] [address]- 8974 Jan, [facility] [place] [facility] [address] [facility] [id number] [place] [address]- 4535 Jan, [facility] [place] [facility] [address] [id number] [place] [address]- 9176 17 Jan, 2012 [facility] [place] [facility] [address] [id number] [place] [address]- 2236 27 Dec, 2011 [facility] [place] [facility] [address] [id number] [place] [address] 2546 20 Dec, 2011 [facility] [place] [facility] [address] [id number] [place] [address] 2546 17 Dec, 2011 [facility] [place] [facility] [address] [id number] [place] [address] 2546 06 Dec, 2011 [facility] [place] [facility] [address] [id number] [place] [address]- 7076 05 Dec, 2011 [facility] [place] [facility] [address] [id number] [place] [address]- 1258 02 Dec, 2011 [facility] [place] [facility] [address] [id number] [place] [address]- 7027 Nov, [facility] [place] [facility] [address] [id number] [place] [address]- 0784 Nov, [facility] [place] [facility] [address] [id number] [place] [address]- 7704 Nov, [facility] [place] [facility] [address] [id number] [place] [address]- 9786 Nov, [facility] [place] [facility] [address] [id number] [place] [address]- 1533 Oct, [facility] [place] [facility] [address] [id number] [place] [address] 254 Oct, [facility] [place] [facility] [address] [id number] [place] [address]- 5426 Oct, [facility] [place] [facility] [address] [id number] [place] [address]- 2546 Oct, [facility] [place] [facility] [address] [id number] [place] [address]- 6408 Oct, [facility] [place] [facility] [address] [id number] [place] [address]- 9905 Oct, [facility] [place] [facility] [address] [id number] [place] [address]- 0996 Oct, [facility] [place] [facility] [address] [id number] [place] [address]- 3351 Oct, [facility] [place] [facility] [address] [id number] [place] [address]- 7901 Sep, [facility] [place] [facility] [address] [id number] [place] [address]- 9876 Sep, [facility] [place] [facility] [address] [id number] [place] [address]- 9048 Sep, [facility] [place] [facility] [address] [id number] [place] [address]- 1904 Sep, [facility] [place] [facility] [address] [id number] [place] [address]- 0077 August, [facility] [place] [facility] [address] [id number] [place] [address]- 2410 August, [facility] [place] [facility] [address] [id number] [place] [address]- 2764 Jul, [facility] [place] [facility] [address] [id number] [place] [address]- 7327 Jun, [facility] [place] [facility] [address] [id number] [place] [address]- 1692 Jun, [facility] [place] [facility] [address] [id number] [place] [address]- 4949 Jun, [facility] [place] [facility] [address] [id number] [place] [address]- 4172 Jun, [facility] [place] [facility] [address] [id number] [place] [address]- 1217 Jun, [facility] [place] [facility] [address] [facility] [id number] [place] [address]- 2197 Jun, [facility] [address] [facility] [id number] [address]- [address] Jun, [facility] [address] [id number] [address]- 8761 Jun, [facility] [address] [facility] [id number] [place] [address]- 2090 May, [facility] [address] [id number] [address]- 9264 May, [facility] [address] [facility] [id number] [place] [address]- 2474 Mar, IMMUNIZATIONS No Known Immunizations SOCIAL HISTORY Never Assessed REASON FOR VISIT Controlled Med Refill 12/17 PLAN OF CARE VITAL SIGNS MEDICATIONS Medication Instructions Dosage Frequency Start Date End Date Duration Status Hydrocodone-Acetaminophen 10-325 MG Orally every 4 hours 1 tablet 4h Nov 28 days Active MS Contin 60 mg Orally every 12 hrs 1 tablet 12h Nov, 28 days Active RESULTS No Results PROCEDURES [...] pneumonia 2012 Hospitalization History COPD exacerbation, acute bronchitis-[facility] 06/10/16
--- OUTSIDE RECORDS SUMMARY | 2018-06-11 16:07 | XMS REPORT ---
Author Author SARA CONROY [facility] Address [address] [place] [address] Care Team Providers Care Supervisor Computer Operations Name Role Phone SARA CONROY Unavailable PROBLEMS Type Condition ICD9-CM Code VOI79-VK Code Onset Dates Condition Status SNOMED Code Problem Chronic pain syndrome G89.4 Active 616890121 Problem Low serum testosterone E29.1 Active 260220515 Problem Back pain M54.9 Active 269833544 Problem Essential hypertension I10 Active 91367312 Problem Chronic obstructive pulmonary disease, unspecified J44.9 Active 64279186 ALLERGIES No Information ENCOUNTERS Encounter Location Date Diagnosis [place] [id number] [place] [address] 41816- 2670 Dec, Back pain M54.9 [facility] [id number] [place] [address] 79039- 1182 Nov, Back pain M54.9 [facility] [id number] [place] [address] 39162- 0752 Nov, Chronic obstructive pulmonary disease, unspecified J44.9 and Essential hypertension I10 [facility] [id number] [place] [address] 78027- 8845 Oct, Back pain M54.9 [facility] [id number] [place] [address] 88971- 7339 Sep, Back pain M54.9 [facility] [id number] [place] [address] 74056- 6573 August, Back pain M54.9 [facility] [id number] [place] [address] 07701- 9528 Jul, Back pain M54.9 [facility] [id number] [place] [address] 79377- 2952 Jul, Medicare annual wellness visit, initial Z00.00 ; Chronic obstructive pulmonary disease, unspecified J44.9 ; Back pain M54.9 ; Chronic pain syndrome G89.4 ; Essential hypertension I10 ; Low serum testosterone E29.1 ; Smoking history Z87.891 and Encounter for immunization Z23 [place] [address] [address]149- 2019 Jul, [place] [address] 68672- 6023 Jun, Back pain M54.9 [place] [address] 56136- 9227 May, Back pain M54.9 [place] [address] 77207- 9461 13 May, 2017 Exposure to the flu Z20.828 [place] [address] 88076- 2301 05 May, 2017 Chronic pain syndrome G89.4 ; Back pain M54.9 and Chronic obstructive pulmonary disease, unspecified J44.9 [place] [id number] [place] [address] 76921- 6226 May, Back pain M54.9 [place] [id number] [place] [address] 38766- 4621 Apr, Back pain M54.9 [place] [id number] [place] [address] 33241- 9010 Mar, Back pain M54.9 [place] [address] 07738- 4657 Feb, Back pain M54.9 [place] [id number] [place] [address] 48147- 1056 Jan, Back pain M54.9 [place] [address] [place] [address]- 4018 Dec, Chronic obstructive pulmonary disease, unspecified J44.9 and Back pain M54.9 [facility] [id number] [place] [address] 97021- 9826 Dec, Back pain M54.9 [facility] [id number] [place] [address] 59666- 8606 Nov, Back pain M54.9 [facility] [id number] [place] [address] 17108- 0908 Oct, Essential hypertension I10 [facility] [id number] [place] [address] 00878- 6684 Oct, Back pain M54.9 [facility] [id number] [place] [address] 67046- 9894 Oct, [facility] [id number] [place] [address] 71339- 0603 Oct, [facility] [id number] [place] [address] 51988- 1313 Sep, Back pain M54.9 [facility] [id number] [place] [address] 98458- 9423 August, [facility] [id number] [place] [address] 05623- 8704 August, Essential hypertension I10 [facility] [id number] [place] [address] 43785- 9074 August, Other dorsalgia M54.89 [facility] [id number] [place] [address] 95511- 8163 August, Back pain M54.9 ; Chronic obstructive pulmonary disease, unspecified J44.9 and Low serum testosterone E29.1 [facility] [address] [address]- 4990 Jul, Other dorsalgia M54.89 [facility] [id number] [place] [address] 85004- 1271 Jun, Dorsalgia, unspecified M54.9 [facility] [id number] [place] [address] 36637- 5206 Jun, Dorsalgia, unspecified M54.9 [facility] [id number] [place] [address] 15030- 9166 Jun, [facility] [id number] [place] [address] 30326- 0747 Jun, Chronic obstructive pulmonary disease, unspecified J44.9 [facility] [id number] [place] [address] 63039- 3857 Jun, Back pain M54.9 [facility] [id number] [place] [address] 27416- 6458 May, Chronic obstructive pulmonary disease, unspecified J44.9 [facility] [id number] [place] [address] 41046- 2426 May, [facility] [id number] [place] [address] 20239- 7484 May, Other dorsalgia M54.89 [facility] [id number] [place] [address] 59502- 4105 Apr, [facility] [id number] [place] [address] 07271- 4274 Apr, Other dorsalgia M54.89 [facility] [id number] [place] [address] 27226- 2206 Mar, Chronic obstructive pulmonary disease, unspecified J44.9 ; Essential hypertension I10 and Back pain M54.9 [facility] [id number] [place] [address] 95768- 1790 Mar, [facility] [id number] [place] [address] 93638- 6061 Mar, Dorsalgia, unspecified M54.9 [facility] [id number] [place] [address] 40256- 7414 02 Mar, 2016 Edema R60.9 [facility] [id number] [place] [address] 10178- 9528 16 Feb, 2016 [facility] [id number] [place] [address] 23160- 6379 Feb, Other dorsalgia M54.89 [facility] [address] 21375- 6129 25 Jan, 2016 Encounter for immunization Z23 and Chronic obstructive pulmonary disease, unspecified J44.9 [facility] [address] 67625- 6827 13 Jan, 2016 [facility] [id number] [place] [address] 74077- 1277 14 Dec, 2015 [facility] [address] 57219- 7067 13 Dec, 2015 [facility] [id number] [place] [address] 27026- 0075 13 Dec, 2015 Essential hypertension I10 and Back pain M54.9 [facility] [id number] [place] [address] 37686- 9877 17 Nov, 2015 [facility] [id number] [place] [address] 53069- 7042 Nov, [facility] [id number] [place] [address] 69608- 0814 Oct, Other dorsalgia M54.89 [facility] [id number] [place] [address] 51373- 6203 Oct, [facility] [id number] [place] [address] 87806- 0496 Sep, [facility] [id number] [place] [address] 55740- 8873 Sep, [facility] [address] [address]- 0160 Sep, [facility] [id number] [place] [address] 11002- 4743 August, [facility] [id number] [place] [address] 27048- 2446 August, Other dorsalgia M54.89 [facility] [id number] [place] [address] 09556- 0662 August, [facility] [id number] [place] [address] 33143- 9678 August, Chronic obstructive pulmonary disease, unspecified J44.9 and Back pain M54.9 [facility] [id number] [place] [address] 83210- 4726 August, [facility] [id number] [place] [address] 22347- 8185 August, [facility] [id number] [place] [address] 58810- 8484 August, Chronic obstructive pulmonary disease, unspecified J44.9 [facility] [id number] [place] [address] 30276- 1929 Jul, Other dorsalgia M54.89 [facility] [id number] [place] [address] 24093- 5648 Jul, Insomnia G47.00 [facility] [address], [place] [address]- 7573 Jun, Other dorsalgia M54.89 [facility] [id number] [place] [address] 51256- 6501 Jun, Other dorsalgia M54.89 [facility] [address] [address]- 7913 May, COPD (chronic obstructive pulmonary disease) J44.9 and Bronchitis J40 [facility] [id number] [place] [address] 78870- 9452 May, Chronic obstructive pulmonary disease, unspecified J44.9 [facility] [id number] [place] [address] 22519- 1182 May, [facility] [id number] [place] [address] 85950- 3319 May, Other dorsalgia M54.89 [facility] [id number] [place] [address] 47498- 5256 Apr, Chronic obstructive pulmonary disease, unspecified J44.9 [facility] [id number] [place] [address] 24478- 5608 Apr, [facility] [id number] [place] [address] 01649- 9918 Mar, [facility] [id number] [place] [address] 41292- 7217 Mar, COPD (chronic obstructive pulmonary disease) J44.9 ; Back pain M54.9 and Edema R60.9 [facility] [id number] [place] [address] 19692- 7863 Mar, [facility] [id number] [place] [address] 24297- 4681 Mar, [facility] [id number] [place] [address] 37819- 0440 24 Feb, 2015 [facility] [id number] [place] [address] 68804- 6204 Feb, [facility] [id number] [place] [address] 62361- 1375 Feb, [facility] [id number] [place] [address] 55961- 0705 29 Jan, 2015 [facility] [id number] [place] [address] 26922- 7328 Jan, [facility] [address] [place] [address]- 1825 Jan, [facility] [address] [address]- 4053 Dec, Chronic airway obstruction, not elsewhere classified 496 ; Back pain 724.5 ; Flu vaccine need V04.81 and Prophylactic vaccination against streptococcus pneumoniae and influenza V06.6 [facility] [address], [place] [address]- 5739 Dec, [facility] [address] [facility] [id number] [address]- 1049 Dec, [facility] [address], [place] [address]- 6495 Dec, [facility] [address] [address]- 3014 Nov, [facility] [id number] [place] [address] 78112- 2746 Nov, [facility] [address], [place] [address]- 6896 Nov, [facility] [address], [place] [address]- 5143 Oct, [facility] [address], [place] [address]- 4276 Oct, [facility] [address], [place] [address]- 3949 Oct, Unspecified arthropathy, 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 and Chronic airway obstruction, not elsewhere classified 496 [facility] [address], [place] [address]- 1870 Oct, [facility] [address], [place] [address]- 6743 Sep, [facility] [address], [place] [address]- 6310 Sep, [facility] [place] [facility] [address] [id number] [place] [address]- 1110 Sep, [facility] [place] [facility] [address] [id number] [place] [address]- 4427 August, [facility] [place] [facility] [address] [id number] [place] [address]- 4466 August, [facility] [place] [facility] [address] [id number] [place] [address]- 0476 August, [facility] [place] [facility] [address] [id number] [place] [address]- 1696 August, [facility] [place] [facility] [address] [id number] [place] [address]- 2876 August, [facility] [place] [facility] [address] [id number] [place] [address]- 2332 Jul, [facility] [place] [facility] [address] [id number] [place] [address]- 4380 Jul, [facility] [place] [facility] [address] [id number] [place] [address]- 3782 Jun, [facility] [place] [facility] [address] [id number], [place] [address]- 9245 Jun, [facility] [place] [facility] [address] [id number] [place] [address]- 9556 Jun, [facility] [place] [facility] [address] [id number], [place] [address]- 5592 Jun, [facility] [place] [facility] [address] [id number] [place] [address]- 6104 Jun, [facility] [place] [facility] [address] [id number] [place] [address]- 8116 Jun, [facility] [place] [facility] [address] [id number], [place] [address]- 5803 May, [facility] [place] [facility] [address] [id number], [place] [address]- 3576 May, [facility] [place] [facility] [address] [id number] [place] [address]- 3078 May, [facility] [place] [facility] [address] [id number] [place] [address]- 4946 May, [facility] [place] [facility] [address] [id number] [place] [address]- 3776 May, [facility] [place] [facility] [address] [id number] [place] [address]- 0021 Apr, [facility] [place] [facility] [address] [id number] [place] [address]- 2711 Apr, [facility] [place] [facility] [address] [id number] [place] [address]- 2179 Apr, [facility] [place] [facility] [address] [id number] [place] [address]- 6088 Apr, [facility] [place] [facility] [address] [facility] [id number] [place] [address]- 8494 Apr, [facility] [place] [facility] [address] [id number] [place] [address]- 3905 Apr, [facility] [place] [facility] [address] [facility] [id number] [place] [address]- 5554 Apr, [facility] [place] [facility] [address] [id number] [place] [address]- 6124 Mar, [facility] [place] [facility] [address] [id number] [place] [address]- 0776 Mar, [facility] [place] [facility] [address] [id number] [place] [address]- 5170 Mar, [facility] [place] [facility] [address] [id number] [place] [address]- 9374 Mar, [facility] [place] [facility] [address] [id number] [place] [address]- 6908 Mar, [facility] [place] [facility] [address] [id number] [place] [address]- 7211 15 Mar, 2014 [facility] [place] [facility] [address] [id number] [place] [address]- 1952 Mar, [facility] [place] [facility] [address] [id number] [place] [address]- 5968 Mar, [facility] [place] [facility] [address] [id number] [place] [address]- 2224 Mar, [facility] [place] [facility] [address] [id number] [place] [address]- 6053 Mar, [facility] [place] [facility] [address] [id number] [place] [address]- 1966 Feb, [facility] [place] [facility] [address] [id number] [place] [address]- 7502 Feb, [facility] [place] [facility] [address] [id number] [place] [address]- 1628 Jan, [facility] [place] [facility] [address] [id number] [place] [address]- 8816 20 Jan, 2014 [facility] [place] [facility] [address] [id number] [place] [address]- 9332 14 Jan, 2014 [facility] [place] [facility] [address] [id number] [place] [address]- 0584 14 Jan, 2014 [facility] [place] [facility] [address] [id number] [place] [address]- 1879 14 Jan, 2014 [facility] [place] [facility] [address] [id number] [place] [address]- 3600 14 Jan, 2014 [facility] [place] [facility] [address] [id number] [place] [address]- 2496 13 Jan, 2014 [facility] [place] [facility] [address] [id number] [place] [address]- 0684 13 Jan, 2014 [facility] [place] [facility] [address] [id number] [place] [address]- 6741 Jan, [facility] [place] [facility] [address] [id number] [place] [address]- 9499 Jan, [facility] [place] [facility] [address] [id number] [place] 3206 Jan, [facility] [place] [facility] [address] [id number] [place] [address]- 1943 Jan, [facility] [place] [facility] [address] [id number] [place] [address]- 9214 Dec, [facility] [place] [facility] [address] [id number] [place] [address]- 6379 Dec, [facility] [place] [facility] [address] [id number] [place] [address]- 1925 Dec, [facility] [place] [facility] [address] [id number] [place] [address]- 3855 Dec, [facility] [place] [facility] [address] [id number] [place] [address]- 5584 Dec, [facility] [place] [facility] [address] [id number] [place] [address]- 8524 Nov, [facility] [place] [facility] [address] [id number] [place] [address]- 5192 Nov, [facility] [place] [facility] [address] [id number] [place] [address]- 5949 Nov, [facility] [place] [facility] [address] [id number] [place] [address]- 8882 Nov, [facility] [place] [facility] [address] [id number] [place] [address]- 0375 Oct, [facility] [place] [facility] [address] [id number] [place] [address]- 4406 Oct, [facility] [place] [facility] [address] [id number] [place] [address]- 4515 Oct, [facility] [place] [facility] [address] [id number] [place] [address]- 8170 Oct, [facility] [place] [facility] [address] [id number] [place] [address]- 1095 Oct, [facility] [place] [facility] [address] [id number] [place] [address]- 7197 Oct, 2013 [facility] [place] [facility] [address] [id number] [place] [address]- 5084 Oct, [facility] [place] [facility] [address] [id number] [place] [address]- 7242 Oct, [facility] [place] [facility] [address] [id number] [place] [address]- 0928 Oct, [facility] [place] [facility] [address] [id number] [place] [address]- 7825 Oct, [facility] [place] [facility] [address] [id number] [place] [address]- 9575 Sep, [facility] [place] [facility] [address] [id number] [place] [address]- 9321 Sep, [facility] [place] [facility] [address] [id number] [place] [address]- 2825 Sep, [facility] [place] [facility] [address] [id number] [place] [address]- 3529 Sep, [facility] [place] [facility] [address] [id number] [place] [address]- 7419 Sep, [facility] [place] [facility] [address] [id number] [place] [address]- 0857 Sep, [facility] [place] [facility] [address] [id number] [place] [address] August, [facility] [place] [facility] [address] [id number] [place] [address] August, [facility] [place] [facility] [address] [id number] [place] [address] August, [facility] [place] [facility] [address] [id number] [place] [address] August, [facility] [place] [facility] [address] [id number] [place] [address] August, [facility] [place] [facility] [address] [id number] [place] [address] August, [facility] [place] [facility] [address] [id number] [place] [address] Jul, [facility] [place] [facility] [address] [id number] [place] [address] Jul, [facility] [place] [facility] [address] [id number] [place] [address] Jul, [facility] [place] [facility] [address] [id number] [place] [address] Jul, [facility] [place] [facility] [address] [id number] [place] [address] Jul, [facility] [place] [facility] [address] [id number] [place] [address] Jul, [facility] [place] [facility] [address] [id number] [place] [address] Jul, [facility] [place] [facility] [address] [id number] [place] [address] Jul, [facility] [place] [facility] [address] [id number] [place] [address] Jul, [facility] [place] [facility] [address] [id number] [place] [address] Jun, [facility] [place] [facility] [address] [id number] [place] [address]- [address] Jun, [facility] [place] [facility] [address] [id number] [place] [address] Jun, [facility] [place] [facility] [address] [id number] [place] [address] May, [facility] [address] [id number] [place] [address]- [address] May, [facility] [place] [facility] [address] [id number] [place] [address]- [address] May, [facility] [place] [facility] [address] [id number] [place] [address] May, [facility] [place] [facility] [address] [id number] [place] [address] May, [facility] [place] [facility] [address] [id number] [place] [address] May, [facility] [place] [facility] [address] [id number] [place] [address] Apr, [facility] [place] [facility] [address] [id number] [place] [address] Apr, [facility] [address] [id number] [place] [address] Apr, [facility] [place] [facility] [address] [id number] [place] [address] Apr, [facility] [place] [facility] [address] [id number] [place] [address] Apr, [facility] [place] [facility] [address] [id number] [place] [address] Apr, [facility] [place] [facility] [address] [id number] [place] [address]- [address] Apr, [facility] [place] [facility] [address] [id number] [place] [address] Apr, [facility] [place] [facility] [address] [id number] [place] [address] Apr, [facility] [place] [facility] [address] [id number] [place] [address] Apr, [facility] [place] [facility] [address] [id number] [place] [address] Mar, [facility] [place] [facility] [address] [id number] [place] [address]- [address] Mar, [facility] [place] [facility] [address] [id number] [place] [address]- [address] Mar, [facility] [place] [facility] [address] [id number] [place] [address] Mar, [facility] [address] [id number] [place] [address] Mar, [facility] [address] [id number] [place] [address] Mar, [facility] [address] [id number] [place] [address] Mar, [facility] [address] [id number] [place] [address]- [address] Mar, [facility] [place] [facility] [address] [id number] [place] [address]- [address] Mar, [facility] [address] [id number] [place] [address] Mar, [facility] [place] [facility] [address] [id number] [place] [address] 96[address] Mar, [facility] [place] [facility] [address] [id number], [place] [address] Feb, [facility] [place] [facility] [address] [id number] [place] [address] Feb, [facility] [place] [facility] [address] [id number] [place] [address] Feb, [facility] [place] [facility] [address] [id number], [place] [address] Feb, [facility] [place] [facility] [address] [id number], [place] [address] Feb, [facility] [place] [facility] [address] [id number] [place] [address] Feb, [facility] [place] [facility] [address] [id number], [place] [address] Feb, [facility] [place] [facility] [address] [id number] [place] [address] 70[address] Feb, [facility] [place] [facility] [address] [id number] [place] [address] 2459 Feb, [facility] [place] [facility] [address] [id number] [place] [address] 17[address] Feb, [facility] [place] [facility] [address] [id number] [place] [address] 1996 Feb, [facility] [place] [facility] [address] [id number] [place] [address] 0[address] Feb, [facility] [place] [facility] [address] [id number] [place] [address] 9973 Jan, [facility] [place] [facility] [address] [id number] [place] [address]- 7406 Jan, [facility] [place] [facility] [address] [id number] [place] [address]- 7939 Jan, [facility] [place] [facility] [address] [id number], [place] [address] Jan, [facility] [place] [facility] [address] [id number], [place] [address]- 3[address] Jan, [facility] [place] [facility] [address] [id number], [place] [address] 18 Jan, 2013 [facility] [place] [facility] [address] [id number], [place] [address] 29[address] 15 Jan, 2013 [facility] [place] [facility] [address] [id number] [place] [address] 7876 15 Jan, 2013 [facility] [place] [facility] [address] [id number] [place] [address] 2544 03 Jan, 2013 [facility] [place] [facility] [address] [id number] [place] [address]- 8980 27 Dec, 2012 [facility] [place] [facility] [address] [id number] [place] [address] 2546 18 Dec, 2012 [facility] [place] [facility] [address] [id number] [place] [address]- 6006 17 Dec, 2012 [facility] [place] [facility] [address] [id number] [place] [address]- 6957 11 Dec, 2012 [facility] [place] [facility] [address] [id number] [place] [address]- 9390 05 Dec, 2012 [facility] [place] [facility] [address] [id number] [place] [address]- 8635 Nov, [facility] [place] [facility] [address] [id number] [place] [address]- 7267 Nov, [facility] [place] [facility] [address] [id number] [place] [address]- 5661 Oct, [facility] [place] [facility] [address] [id number] [place] [address]- 8844 Oct, [facility] [place] [facility] [address] [id number] [place] [address] 1279 Oct, [facility] [place] [facility] [address] [id number] [place] [address]- 5887 Oct, [facility] [place] [facility] [address] [id number] [place] [address]- 1557 Oct, [facility] [place] [facility] [address] [id number] [place] [address]- 7688 Oct, [facility] [place] [facility] [address] [id number] [place] [address]- 7326 Sep, [facility] [place] [facility] [address] [id number] [place] [address]- 2761 Sep, [facility] [address] [id number] [place] [address]- 5133 Sep, [facility] [place] [facility] [address] [id number] [place] [address]- 5996 Sep, [facility] [place] [facility] [address] [id number] [place] [address]- 3070 Sep, [facility] [place] [facility] [address] [id number] [place] [address]- 1231 Sep, [facility] [address] [id number] [place] [address]- 2317 Sep, [facility] [place] [facility] [address] [id number] [place] [address] 5740 August, [facility] [place] [facility] [address] [id number] [place] [address]- 6988 August, [facility] [place] [facility] [address] [id number] [place] [address]- 1084 August, [facility] [place] [facility] [address] [id number] [place] [address]- [address] August, [facility] [place] [facility] [address] [id number] [place] [address]- 7890 August, [facility] [place] [facility] [address] [id number] [place] [address]- 0660 August, [facility] [place] [facility] [address] [id number] [place] [address]- 6971 Jul, [facility] [place] [facility] [address] [id number] [place] [address] 8279 Jul, [facility] [place] [facility] [address] [id number] [place] [address]- 5730 Jul, [facility] [place] [facility] [address] [id number] [place] [address]- 0945 Jul, [facility] [place] [facility] [address] [id number] [place] [address]- [address] 08 Jul, 2012 [facility] [address] [id number] [place] [address]- 7702 Jul, [facility] [place] [facility] [address] [id number] [place] [address]- 6550 Jun, [facility] [address] [id number] [place] [address]- 3838 Jun, [facility] [place] [facility] [address] [id number] [place] [address]- 7094 Jun, [facility] [address] [id number] [place] [address]- 7857 Jun, [facility] [address] [id number] [place] [address]- 4994 Jun, [facility] [address] [id number] [place] [address]- 4902 Jun, [facility] [address] [id number] [place] [address]- 5712 May, [facility] [place] [facility] [address] [id number] [place] [address]- 2335 May, [facility] [address] [id number] [place] [address]- 6106 May, [facility] [place] [facility] [address] [id number] [place] [address]- 9630 May, [facility] [place] [facility] [address] [id number] [place] [address]- 8110 Apr, [facility] [place] [facility] [address] [id number] [place] [address]- 2806 Apr, [facility] [place] [facility] [address] [id number] [place] [address]- 2586 Apr, [facility] [place] [facility] [address] [id number] [place] [address]- 7240 Apr, [facility] [place] [facility] [address] [id number] [place] [address]- 7606 Apr, [facility] [address] [id number] [place] [address]- 0949 Apr[facility] [address] [id number] [place] [address]- 4426 Apr, [facility] [address] [id number] [place] [address]- 3067 Apr, [facility] [address] [id number] [place] [address]- 6014 Apr, [facility] [address] [id number] [place] [address]- 0882 Mar, [facility] [address] [id number] [place] [address]- 7418 Mar, [facility] [address] [id number] [place] [address]- 5378 Mar, [facility] [address] [id number] [place] [address]- 1425 Mar, [facility] [address] [id number] [place] [address]- 8966 Mar, [facility] [address] [id number] [place] [address]- 1556 Mar, [facility] [address] [id number], [place] [address]- 6683 Mar, [facility] [place] [facility] [address] [id number] [place] [address]- 7949 Mar, [facility] [place] [facility] [address] [id number] [place] [address]- 6736 Mar, [facility] [place] [facility] [address] [id number] [place] [address]- 5257 Mar, [facility] [place] [facility] [address] [id number], [place] [address]- 0842 Feb, [facility] [place] [facility] [address] [id number] [place] [address]- 2349 Feb, [facility] [place] [facility] [address] [id number], [place] [address]- 3438 Feb, [facility] [place] [facility] [address] [facility] [id number] [place] [address]- 1720 Feb, [facility] [place] [facility] [address] [id number], [place] [address]- 9835 Feb, [facility] [place] [facility] [address] [id number] [place] [address]- 7780 15 Feb, 2012 [facility] [place] [facility] [address] [id number] [place] [address]- 8889 14 Feb, 2012 [facility] [place] [facility] [address] [facility] [id number], [place] [address]- 2200 Jan, [facility] [place] [facility] [address] [id number] [place] [address]- 1941 Jan, [facility] [place] [facility] [address] [id number] [place] [address]- 1170 Jan, [facility] [place] [facility] [address] [facility] [id number], [place] [address]- 0104 Jan, [facility] [place] [facility] [address] [facility] [id number], [place] [address]- 8297 Jan, [facility] [place] [facility] [address] [facility] [id number], [place] [address]- 4880 29 Jan, 2012 [facility] [place] [facility] [address] [id number], [place] [address]- 5508 Jan, [facility] [place] [facility] [address] [facility] [id number], [place] [address]- 0550 Jan, [facility] [place] [facility] [address] [facility] [id number] [place] [address]- 0490 Jan, [facility] [place] [facility] [address] [id number] [place] [address]- 3216 17 Jan, 2012 [facility] [place] [facility] [address] [id number] [place] [address]- 1686 27 Dec, 2011 [facility] [place] [facility] [address] [id number] [place] [address] 2546 20 Dec, 2011 [facility] [place] [facility] [address] [id number] [place] [address] 2546 17 Dec, 2011 [facility] [place] [facility] [address] [id number] [place] [address] 2546 06 Dec, 2011 [facility] [place] [facility] [address] [id number] [place] [address]- 5356 05 Dec, 2011 [facility] [place] [facility] [address] [id number] [place] [address]- 2523 02 Dec, 2011 [facility] [place] [facility] [address] [id number] [place] [address]- 3706 Nov, [facility] [place] [facility] [address] [id number] [place] [address]- 4926 Nov, [facility] [place] [facility] [address] [id number] [place] [address]- 2705 Nov, [facility] [place] [facility] [address] [id number] [place] [address]- 4371 Nov, [facility] [place] [facility] [address] [id number] [place] [address]- 0744 Oct, [facility] [place] [facility] [address] [id number] [place] [address] 2541 Oct, [facility] [place] [facility] [address] [id number] [place] [address]- 2266 Oct, [facility] [place] [facility] [address] [id number] [place] [address]- 2546 Oct, [facility] [place] [facility] [address] [id number] [place] [address]- 5976 Oct, [facility] [place] [facility] [address] [id number] [place] [address]- 6289 Oct, [facility] [place] [facility] [address] [id number] [place] [address]- 7294 Oct, [facility] [place] [facility] [address] [id number] [place] [address]- 7196 Oct, [facility] [place] [facility] [address] [id number] [place] [address]- 1201 Sep, [facility] [place] [facility] [address] [id number] [place] [address]- 0007 Sep, [facility] [place] [facility] [address] [id number] [place] [address]- 8255 Sep, [facility] [place] [facility] [address] [id number] [place] [address]- 2409 Sep, [facility] [place] [facility] [address] [id number] [place] [address]- 5688 August, [facility] [place] [facility] [address] [id number] [place] [address]- 0015 August, [facility] [place] [facility] [address] [id number] [place] [address]- 3903 Jul, [facility] [place] [facility] [address] [id number] [place] [address]- 3630 Jun, [facility] [place] [facility] [address] [id number] [place] [address]- 7081 Jun, [facility] [place] [facility] [address] [id number] [place] [address]- 5669 Jun, [facility] [place] [facility] [address] [id number] [place] [address]- 3315 Jun, [facility] [place] [facility] [address] [id number] [place] [address]- 4416 Jun, [facility] [place] [facility] [address] [facility] [id number] [place] [address]- 2366 Jun, [facility] [address] [facility] [id number], [place] [address]- 6506 Jun, [facility] [address] [id number], [place] [address]- 8542 Jun, [facility] [address] [facility] [id number], [place] [address]- 7429 May, [facility] [address] [id number], [place] [address]- 5742 May, [facility] [address] [facility] [id number], [place] [address]- 8639 Mar, IMMUNIZATIONS No Known Immunizations SOCIAL HISTORY Never Assessed REASON FOR VISIT Controlled Med Refill PLAN OF CARE VITAL SIGNS MEDICATIONS Medication Instructions Dosage Frequency Start Date End Date Duration Status Hydrocodone-Acetaminophen 10-325 MG Orally every 4 hours 1 tablet 4h Dec 28 days Active MS Contin 60 mg Orally every 12 hrs 1 tablet 12h Dec, 28 days Active RESULTS No Results PROCEDURES [...] pneumonia 2012 Hospitalization History COPD exacerbation, acute bronchitis-[facility] 06/10/16
--- OUTSIDE RECORDS SUMMARY | 2018-06-11 16:08 | XMS REPORT ---
Author Author SARA CONROY [facility] Address [address] [place] [address] Care Team Providers Care Diamond Cleaver Name Role Phone SARA CONROY Unavailable PROBLEMS Type Condition ICD9-CM Code YRB13-FG Code Onset Dates Condition Status SNOMED Code Problem Chronic pain syndrome G89.4 Active 871324481 Problem Low serum testosterone E29.1 Active 772142009 Problem Back pain M54.9 Active 354123830 Problem Essential hypertension I10 Active 11110758 Problem Chronic obstructive pulmonary disease, unspecified J44.9 Active 94750851 ALLERGIES No Information ENCOUNTERS Encounter Location Date Diagnosis [place] [id number] [place] [address] 11769- 9125 Nov, Back pain M54.9 [facility] [id number] [place] [address] 07023- 0895 Nov, Chronic obstructive pulmonary disease, unspecified J44.9 and Essential hypertension I10 [facility] [id number] [place] [address] 72295- 0530 Oct, Back pain M54.9 [place] [id number] [place] [address] 18876- 7890 Sep, Back pain M54.9 [facility] [id number] [place] [address] 23108- 2579 August, Back pain M54.9 [place] [id number] [place] [address] 23080- 4168 Jul, Back pain M54.9 [place] [id number] [place] [address] 42105- 4734 Jul, Medicare annual wellness visit, initial Z00.00 ; Chronic obstructive pulmonary disease, unspecified J44.9 ; Back pain M54.9 ; Chronic pain syndrome G89.4 ; Essential hypertension I10 ; Low serum testosterone E29.1 ; Smoking history Z87.891 and Encounter for immunization Z23 [facility] [id number] [place] [address] 24408- 2215 Jul, [facility] [address] 65422- 9425 Jun, Back pain M54.9 [facility] [address] 33792- 9991 May, Back pain M54.9 [facility] [address] 71528- 1270 May, Exposure to the flu Z20.828 [facility] [address] 24427- 4642 May, Chronic pain syndrome G89.4 ; Back pain M54.9 and Chronic obstructive pulmonary disease, unspecified J44.9 [facility] [id number] [place] [address] 19665- 3599 May, Back pain M54.9 [facility] [id number] [place] [address] 04152- 6586 Apr, Back pain M54.9 [facility] [id number] [place] [address] 89446- 1604 Mar, Back pain M54.9 [facility] [id number] [place] [address] 89512- 9117 Feb, Back pain M54.9 [facility] [address] 05312- 3502 Jan, Back pain M54.9 [facility] [id number] [place] [address] 45214- 6331 Dec, Chronic obstructive pulmonary disease, unspecified J44.9 and Back pain M54.9 [facility] [id number] [place] [address] 40381- 5014 Dec, Back pain M54.9 [facility] [id number] [place] [address] 48702- 2861 Nov, Back pain M54.9 [facility] [id number] [place] [address] 90924- 8071 Oct, Essential hypertension I10 [facility] [id number] [place] [address] 73170- 6194 Oct, Back pain M54.9 [facility] [id number] [place] [address] 90182- 3164 Oct, [facility] [id number] [place] [address] 56577- 1457 Oct, [facility] [id number] [place] [address] 02857- 8191 Sep, Back pain M54.9 [facility] [id number] [place] [address] 69640- 3000 August, [facility] [id number] [place] [address] 63170- 0620 August, Essential hypertension I10 [facility] [id number] [place] [address] 94552- 8812 August, Other dorsalgia M54.89 [facility] [id number] [place] [address] 61433- 8605 August, Back pain M54.9 ; Chronic obstructive pulmonary disease, unspecified J44.9 and Low serum testosterone E29.1 [facility] [id number] [place] [address] 85502- 2654 Jul, Other dorsalgia M54.89 [facility] [id number] [place] [address] 97399- 4402 Jun, Dorsalgia, unspecified M54.9 [facility] [id number] [place] [address] 95075- 8266 Jun, Dorsalgia, unspecified M54.9 [facility] [id number] [place] [address] 98040- 3436 Jun, [facility] [id number] [place] [address] 18951- 1866 Jun, Chronic obstructive pulmonary disease, unspecified J44.9 [facility] [id number] [place] [address] 73161- 8456 Jun, Back pain M54.9 [facility] [id number] [place] [address] 11285- 1956 May, Chronic obstructive pulmonary disease, unspecified J44.9 [facility] [id number] [place] [address] 83172- 4016 May, [facility] [id number] [place] [address] 06868- 6286 May, Other dorsalgia M54.89 [facility] [id number] [place] [address] 09337- 2804 Apr, [facility] [id number] [place] [address] 07608- 5169 Apr, Other dorsalgia M54.89 [facility] [id number] [place] [address] 17056- 2716 Mar, Chronic obstructive pulmonary disease, unspecified J44.9 ; Essential hypertension I10 and Back pain M54.9 [facility] [id number] [place] [address] 29834- 4396 Mar, [facility] [id number] [place] [address] 18763- 5383 Mar, Dorsalgia, unspecified M54.9 [facility] [id number] [place] [address] 90406- 6366 02 Dec, 2016 Edema R60.9 [facility] [id number] [place] [address] 14361- 2612 16 Feb, 2016 [facility] [id number] [place] [address] 07877- 3381 Feb, Other dorsalgia M54.89 [facility] [id number] [place] [address] 84619- 4246 Jan, Encounter for immunization Z23 and Chronic obstructive pulmonary disease, unspecified J44.9 [facility] [id number] [place] [address] 02206- 0814 Jan, [facility] [id number] [place] [address] 28543- 4722 14 Dec, 2015 [facility] [id number] [place] [address] 65508- 6741 13 Dec, 2015 [facility] [id number] [place] [address] 13006- 3117 13 Dec, 2015 Essential hypertension I10 and Back pain M54.9 [facility] [id number] [place] [address] 39601- 3518 Nov, [facility] [id number] [place] [address] 93563- 2641 Nov, [facility] [id number] [place] [address] 68704- 6764 Oct, Other dorsalgia M54.89 [facility] [id number] [place] [address] 60664- 9756 Oct, [facility] [id number] [place] [address] 70027- 3743 Sep, [facility] [id number] [place] [address] 36304- 7391 Sep, [facility] [id number] [place] [address] 47520- 1927 Sep, [facility] [id number] [place] [address] 45479- 2990 August, [facility] [id number] [place] [address] 39759- 8283 August, Other dorsalgia M54.89 [facility] [id number] [place] [address] 72736- 0610 August, [facility] [id number] [place] [address] 02631- 3520 August, Chronic obstructive pulmonary disease, unspecified J44.9 and Back pain M54.9 [facility] [id number] [place] [address] 04933- 1020 August, [facility] [id number] [place] [address] 94389- 7009 August, [facility] [id number] [place] [address] 21907- 8037 August, Chronic obstructive pulmonary disease, unspecified J44.9 [facility] [id number] [place] [address] 75760- 5447 Jul, Other dorsalgia M54.89 [facility] [id number] [place] [address] 36260- 2343 Jul, Insomnia G47.00 [facility] [id number] [place] [address] 01385- 1864 Jun, Other dorsalgia M54.89 [facility] [id number] [place] [address] 72458- 0999 Jun, Other dorsalgia M54.89 [facility] [id number] [place] [address] 52201- 3157 May, COPD (chronic obstructive pulmonary disease) J44.9 and Bronchitis J40 [facility] [id number] [place] [address] 89195- 4805 May, Chronic obstructive pulmonary disease, unspecified J44.9 [facility] [address] [facility] [id number] [address]- 6016 05 May, 2015 [facility] [id number] [place] [address], [place] [address]- 4256 May, Other dorsalgia M54.89 [facility] [address] [place] [address]- 7011 Apr, Chronic obstructive pulmonary disease, unspecified J44.9 [facility] [id number] [address]- 0836 Apr, [facility] [id number] [place] [address] 26475- 1960 Mar, [facility] [address] [place] [address] 60674- 3909 Mar, COPD (chronic obstructive pulmonary disease) J44.9 ; Back pain M54.9 and Edema R60.9 [facility] [address] [address]- 1104 Mar, [facility] [id number] [place] [address] 78537- 7454 Mar, [facility] [address] [address]- 8149 Feb, [facility] [address] [address]- 2709 Feb, [facility] [address] [address]- 8010 Feb, [facility] [address] [address]- 2790 Jan, [facility] [address] [address]- 3360 Jan, [facility] [address] [address]- 9488 Jan, [facility] [address] [address]- 9191 Dec, Chronic airway obstruction, not elsewhere classified 496 ; Back pain 724.5 ; Flu vaccine need V04.81 and Prophylactic vaccination against streptococcus pneumoniae and influenza V06.6 [facility] [address] [facility] [id number] [place] [address]- 1443 Dec, [facility] [address] [facility] [id number] [place] [address]- 2613 Dec, [facility] [address] [facility] [id number] [place] [address]- 5394 Dec, [facility] [address] [facility] [id number] [place] [address]- 6821 Nov, [facility] [address] [facility] [id number] [place] [address]- 6270 Nov, [facility] [id number] [address]- 9699 Nov, [facility] [address] [facility] [id number] [place] [address]- 4302 Oct, [facility] [address] [facility] [id number] [place] [address]- 2918 Oct, [facility] [address] [id number] [address]- 3811 Oct, Unspecified arthropathy, 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 and Chronic airway obstruction, not elsewhere classified 496 [facility] [address] [facility] [id number] [place] [address]- 8728 Oct, [facility] [address] [facility] [id number] [place] [address]- 9525 Sep, [facility] [address] [facility] [id number] [place] [address]- 2165 Sep, [facility] [address] [id number] [address]- 9698 Sep, [facility] [place] [facility] [address] [id number] [place] [address]- 7209 August, [facility] [place] [facility] [address] [id number] [place] [address]- 3520 August, [facility] [place] [facility] [address] [id number] [place] [address]- 1953 August, [facility] [place] [facility] [address] [id number] [place] [address]- 4796 August, [facility] [place] [facility] [address] [id number] [place] [address]- 8196 August, [facility] [place] [facility] [address] [id number] [place] [address]- 8567 Jul, [facility] [place] [facility] [address] [id number] [place] [address]- 7659 Jul, [facility] [place] [facility] [address] [id number] [place] [address]- 3324 Jun, [facility] [place] [facility] [address] [id number] [place] [address]- 8059 Jun, [facility] [place] [facility] [address] [id number] [place] [address]- 4164 Jun, [facility] [place] [facility] [address] [id number] [place] [address]- 9404 Jun, [facility] [place] [facility] [address] [id number] [place] [address]- 0986 Jun, [facility] [place] [facility] [address] [id number] [place] [address]- 9832 Jun, [facility] [place] [facility] [address] [id number] [place] [address]- 7227 May, [facility] [place] [facility] [address] [id number] [place] [address]- 7375 May, [facility] [place] [facility] [address] [id number] [place] [address]- 8576 May, [facility] [address] [id number] [place] [address]- 1847 May, [facility] [place] [facility] [address] [id number] [place] [address]- 9223 May, [facility] [place] [facility] [address] [id number] [place] [address]- 9716 Apr, [facility] [place] [facility] [address] [id number] [place] [address]- 7384 Apr, [facility] [place] [facility] [address] [id number] [place] [address]- 6413 Apr, [facility] [place] [facility] [address] [id number] [place] [address]- 6474 Apr, [facility] [address] [id number] [place] [address]- 2302 Apr, [facility] [place] [facility] [address] [id number] [place] [address]- 3734 Apr, [facility] [address] [id number] [place] [address]- 9532 Apr, [facility] [place] [facility] [address] [id number] [place] [address]- 2006 Mar, [facility] [place] [facility] [address] [id number] [place] [address]- 7008 Mar, [facility] [place] [facility] [address] [id number] [place] [address]- 7702 Mar, [facility] [place] [facility] [address] [id number] [place] [address]- 7503 Mar, [facility] [place] [facility] [address] [id number] [place] 0812 Mar, [facility] [place] [facility] [address] [id number] [place] [address]- 1739 Mar, [facility] [place] [facility] [address] [id number] [place] [address]- 7935 12 Mar, 2014 [facility] [place] [facility] [address] [id number] [place] [address]- 1751 Mar, [facility] [place] [facility] [address] [id number] [place] [address]- 0875 Mar, [facility] [place] [facility] [address] [id number] [place] [address]- 7235 Mar, [facility] [place] [facility] [address] [id number] [place] [address]- 2573 Feb, [facility] [place] [facility] [address] [id number] [place] [address]- 0985 Feb, [facility] [place] [facility] [address] [id number] [place] [address]- 5505 Jan, [facility] [place] [facility] [address] [id number] [place] [address]- 8601 Jan, [facility] [place] [facility] [address] [id number] [place] [address]- 5700 14 Jan, 2014 [facility] [place] [facility] [address] [id number] [place] [address]- 4881 14 Jan, 2014 [facility] [place] [facility] [address] [id number] [place] [address]- 2340 14 Jan, 2014 [facility] [place] [facility] [address] [id number] [place] [address]- 2956 14 Jan, 2014 [facility] [place] [facility] [address] [id number] [place] [address]- 4495 13 Jan, 2014 [facility] [place] [facility] [address] [id number] [place] [address]- 2955 Jan, [facility] [place] [facility] [address] [id number] [place] 3113 Jan, [facility] [place] [facility] [address] [id number] [place] [address]- 2763 Jan, [facility] [place] [facility] [address] [id number] [place] [address]- 9384 Jan, [facility] [place] [facility] [address] [id number] [place] [address]- 7688 Jan, [facility] [place] [facility] [address] [id number] [place] [address]- 6389 Dec, [facility] [place] [facility] [address] [id number] [place] [address]- 1735 Dec, [facility] [place] [facility] [address] [id number] [place] [address]- 8306 Dec, [facility] [place] [facility] [address] [id number] [place] [address]- 9441 Dec, [facility] [place] [facility] [address] [id number] [place] [address]- 3993 Dec, [facility] [place] [facility] [address] [id number] [place] [address]- 9409 Nov, [facility] [place] [facility] [address] [id number] [place] [address]- 1408 Nov, [facility] [place] [facility] [address] [id number] [place] [address]- 5726 Nov, [facility] [place] [facility] [address] [id number] [place] [address]- 7115 Nov, [facility] [place] [facility] [address] [id number] [place] [address]- 9480 Oct, [facility] [place] [facility] [address] [id number] [place] [address]- 6494 Oct, [facility] [place] [facility] [address] [id number] [place] [address]- 9426 Oct, [facility] [place] [facility] [address] [id number] [place] [address]- 6951 Oct, [facility] [place] [facility] [address] [id number] [place] [address]- 7900 Oct, [facility] [place] [facility] [address] [id number] [place] [address]- 2016 Oct, [facility] [place] [facility] [address] [id number] [place] [address]- 6593 Oct, [facility] [place] [facility] [address] [id number] [place] [address]- 1873 Oct, [facility] [place] [facility] [address] [id number] [place] [address]- 3838 Oct, [facility] [place] [facility] [address] [id number] [place] [address]- 7233 Oct, [facility] [place] [facility] [address] [id number] [place] [address]- 4933 Sep, [facility] [place] [facility] [address] [id number] [place] [address]- 8310 Sep, [facility] [place] [facility] [address] [id number] [place] [address]- 2044 Sep, [facility] [place] [facility] [address] [id number] [place] [address]- 6003 Sep, [facility] [place] [facility] [address] [id number] [place] [address]- 9794 Sep, [facility] [place] [facility] [address] [id number] [place] [address]- 0307 Sep, [facility] [place] [facility] [address] [id number] [place] [address]- 4156 August, [facility] [place] [facility] [address] [id number] [place] [address]- 6397 August, [facility] [place] [facility] [address] [id number] [place] [address]- 9834 August, [facility] [place] [facility] [address] [id number] [place] [address]- 0889 August, [facility] [place] [facility] [address] [id number] [place] [address]- 5252 August, [facility] [place] [facility] [address] [id number] [place] [address] August, [facility] [place] [facility] [address] [id number] [place] [address] Jul, [facility] [place] [facility] [address] [id number] [place] [address] Jul, [facility] [place] [facility] [address] [id number] [place] [address] Jul, [facility] [place] [facility] [address] [id number] [place] [address] Jul, [facility] [place] [facility] [address] [id number] [place] [address] Jul, [facility] [place] [facility] [address] [id number] [place] [address] Jul, [facility] [place] [facility] [address] [id number] [place] [address] Jul, [facility] [place] [facility] [address] [id number] [place] [address] Jul, [facility] [place] [facility] [address] [id number] [place] [address] Jul, [facility] [place] [facility] [address] [id number] [place] [address] Jun, [facility] [place] [facility] [address] [id number] [place] [address] Jun, [facility] [place] [facility] [address] [id number] [place] [address] Jun, [facility] [place] [facility] [address] [id number] [place] [address] May, [facility] [place] [facility] [address] [id number] [place] [address] May, [facility] [address] [id number] [place] [address] May, [facility] [place] [facility] [address] [id number] [place] [address] May, [facility] [place] [facility] [address] [id number] [place] [address] May, [facility] [place] [facility] [address] [id number] [place] [address] May, [facility] [address] [id number] [place] [address] Apr, [facility] [place] [facility] [address] [id number] [place] [address] Apr, [facility] [address] [id number] [place] [address] Apr, [facility] [place] [facility] [address] [id number] [place] [address] Apr, [facility] [address] [id number] [place] [address] Apr, [facility] [place] [facility] [address] [id number] [place] [address] Apr, [facility] [address] [id number] [place] [address] Apr, [facility] [place] [facility] [address] [id number] [place] [address] Apr, [facility] [place] [facility] [address] [id number] [place] [address] Apr, [facility] [place] [facility] [address] [id number] [place] [address] Apr, [facility] [place] [facility] [address] [id number] [place] [address] Mar, [facility] [place] [facility] [address] [id number] [place] [address] 30 Mar, 2013 [facility] [place] [facility] [address] [id number] [place] [address] Mar, [facility] [place] [facility] [address] [id number] [place] [address] Mar, [facility] [place] [facility] [address] [id number] [place] [address] Mar, [facility] [place] [facility] [address] [id number] [place] [address] Mar, [facility] [place] [facility] [address] [id number] [place] [address] Mar, [facility] [place] [facility] [address] [id number] [place] [address] Mar, [facility] [place] [facility] [address] [id number] [place] [address] Mar, [facility] [place] [facility] [address] [id number] [place] [address] Mar, [facility] [place] [facility] [address] [id number] [place] [address] Mar, [facility] [place] [facility] [address] [id number] [place] [address] Feb, [facility] [place] [facility] [address] [id number] [place] [address] Feb, [facility] [place] [facility] [address] [id number] [place] [address] Feb, [facility] [place] [facility] [address] [id number] [place] [address] Feb, [facility] [place] [facility] [address] [id number] [place] [address] 22[address] Feb, [facility] [place] [facility] [address] [id number] [place] [address] Feb, [facility] [place] [facility] [address] [id number] [place] [address] Feb, [facility] [place] [facility] [address] [id number] [place] [address] 4[address] Feb, [facility] [place] [facility] [address] [id number] [place] [address] 5121 Feb, [facility] [place] [facility] [address] [id number] [place] [address] 9416 Feb, [facility] [place] [facility] [address] [id number] [place] [address] 04[address] Feb, [facility] [place] [facility] [address] [id number] [place] [address] 64[address] Feb, [facility] [place] [facility] [address] [id number] [place] [address]- 0269 Jan, [facility] [place] [facility] [address] [id number] [place] [address] 133[address] Jan, [facility] [place] [facility] [address] [id number] [place] [address] 7337 Jan, [facility] [place] [facility] [address] [id number] [place] [address] 9[address] Jan, [facility] [place] [facility] [address] [id number] [place] [address] 54[address] Jan, [facility] [place] [facility] [address] [id number] [place] [address] 4308 18 Jan, 2013 [facility] [place] [facility] [address] [id number] [place] [address] 7588 15 Jan, 2013 [facility] [place] [facility] [address] [id number] [place] [address] 1794 15 Jan, 2013 [facility] [place] [facility] [address] [id number] [place] [address] Jan, [facility] [place] [facility] [address] [id number] [place] [address]- 3821 27 Dec, 2012 [facility] [place] [facility] [address] [id number] [place] [address]- 4317 18 Dec, 2012 [facility] [place] [facility] [address] [id number] [place] [address]- 3816 17 Dec, 2012 [facility] [place] [facility] [address] [id number] [place] [address]- 7623 11 Dec, 2012 [facility] [place] [facility] [address] [id number] [place] [address]- 4169 05 Dec, 2012 [facility] [place] [facility] [address] [id number] [place] [address] 5565 Nov, [facility] [place] [facility] [address] [id number] [place] [address]- 6546 Nov, [facility] [place] [facility] [address] [id number] [place] [address]- 2973 Oct, [facility] [place] [facility] [address] [id number] [place] [address]- 1780 Oct, [facility] [place] [facility] [address] [id number] [place] [address]- 9296 Oct, [facility] [place] [facility] [address] [id number] [place] [address]- 4982 Oct, [facility] [place] [facility] [address] [id number] [place] [address]- 6865 Oct, [facility] [place] [facility] [address] [id number] [place] [address]- 9672 Oct, [facility] [place] [facility] [address] [id number] [place] [address]- 6385 Sep, [facility] [place] [facility] [address] [id number] [place] [address]- 3351 24 Sep, 2012 [facility] [place] [facility] [address] [id number] [place] [address]- 6292 Sep, [facility] [place] [facility] [address] [id number] [place] [address]- 7407 Sep, [facility] [address] [id number] [place] [address]- 0587 Sep, [facility] [address] [id number] [place] [address]- 5[address] Sep, [facility] [address] [id number] [place] [address]- 9096 Sep, [facility] [address] [id number] [place] [address] 1367 August, [facility] [address] [id number] [place] [address]- 1741 August, [facility] [address] [id number] [place] [address] 6126 August, [facility] [address] [id number] [place] [address] 2167 August, [facility] [address] [id number] [place] [address]- 5802 August, [facility] [address] [id number] [place] [address]- 9107 August, [facility] [address] [id number] [place] [address]- 5048 Jul, [facility] [address] [id number] [place] [address] 0372 Jul, [facility] [address] [id number] [place] [address]- 5463 Jul, [facility] [place] [facility] [address] [id number] [place] [address]- 0935 Jul, [facility] [address] [id number] [place] [address]- 6044 08 Jul, 2012 [facility] [address] [id number] [place] [address]- 2546 Jul, [facility] [address] [id number] [place] [address]- 3859 Jun, [facility] [address] [id number] [place] [address]- 4698 Jun, [facility] [address] [id number] [place] [address]- 5176 Jun, [facility] [address] [id number] [place] [address]- 8021 Jun, [facility] [address] [id number] [place] [address]- 5751 Jun, [facility] [address] [id number] [place] [address]- 1428 Jun, [facility] [address] [id number] [place] [address]- 8169 May, [facility] [address] [id number] [place] [address]- 5827 May, [facility] [address] [id number] [place] [address]- 9478 May, [facility] [address] [facility] [id number] [place] [address]- 9180 May, [facility] [address] [id number] [place] [address]- 3944 Apr, [facility] [place] [facility] [address] [id number] [place] [address] 1754 Apr, [facility] [place] [facility] [address] [id number] [place] [address]- 3898 Apr, [facility] [place] [facility] [address] [id number] [place] [address]- 4438 Apr, [facility] [place] [facility] [address] [id number] [place] [address]- 8758 Apr, [facility] [place] [facility] [address] [id number] [place] [address]- 0323 Apr, [facility] [place] [facility] [address] [id number] [place] [address]- 6226 Apr, [facility] [place] [facility] [address] [id number] [place] [address]- 6416 Apr, [facility] [place] [facility] [address] [id number] [place] [address]- 3642 Apr, [facility] [place] [facility] [address] [id number] [place] [address]- 1263 Mar, [facility] [place] [facility] [address] [id number] [place] [address]- 2347 Mar, [facility] [place] [facility] [address] [id number] [place] [address]- 4197 Mar, [facility] [place] [facility] [address] [id number] [place] [address]- 4212 Mar, [facility] [place] [facility] [address] [id number] [place] [address]- 9645 Mar, [facility] [place] [facility] [address] [id number] [place] [address]- 8594 Mar, [facility] [place] [facility] [address] [id number] [place] [address]- 5443 Mar, [facility] [place] [facility] [address] [id number] [place] [address]- 8290 Mar, [facility] [place] [facility] [address] [id number] [place] [address]- 8842 Mar, [facility] [place] [facility] [address] [id number] [place] [address]- 2576 Mar, [facility] [place] [facility] [address] [id number] [place] [address]- 8898 Feb, [facility] [place] [facility] [address] [id number] [place] [address]- 7131 Feb, [facility] [place] [facility] [address] [id number] [place] [address]- 9520 Feb, [facility] [place] [facility] [address] [id number] [place] [address]- 8124 Feb, [facility] [place] [facility] [address] [facility] [id number] [place] [address]- 6406 Feb, [facility] [place] [facility] [address] [id number] [place] [address], [place] [address]- 2850 15 Feb, 2012 [facility] [place] [facility] [address] [id number] [place] [address]- 2840 14 Feb, 2012 [facility] [place] [facility] [address] [id number] [place] [address], [place] [address]- 0884 Jan, [facility] [place] [facility] [address] [id number] [place] [address]- 9829 Jan, [facility] [place] [facility] [address] [id number] [place] [address]- 8909 Jan, [facility] [place] [facility] [address] [id number] [place] [address]- 5778 Jan, [facility] [place] [facility] [address] [facility] [id number] [place] [address]- 6443 Jan, [facility] [place] [facility] [address] [id number] [place] [address]- 8776 Jan, [facility] [place] [facility] [address] [id number] [place] [address]- 9070 Jan, [facility] [place] [facility] [address] [id number] [place] [address]- 5962 18 Jan, 2012 [facility] [place] [facility] [address] [facility] [id number] [place] [address]- 9369 18 Jan, 2012 [facility] [place] [facility] [address] [facility] [id number] [place] [address]- 2745 17 Jan, 2012 [facility] [place] [facility] [address] [id number] [place] [address]- 9086 27 Dec, 2011 [facility] [place] [facility] [address] [id number] [place] [address] 2546 20 Dec, 2011 [facility] [place] [facility] [address] [id number] [place] [address] 2546 17 Dec, 2011 [facility] [place] [facility] [address] [id number] [place] [address] 2546 06 Dec, 2011 [facility] [place] [facility] [address] [id number] [place] [address] 2546 05 Dec, 2011 [facility] [place] [facility] [address] [id number] [place] [address]- 3676 02 Dec, 2011 [facility] [place] [facility] [address] [id number] [place] [address] 2546 Nov, [facility] [place] [facility] [address] [id number] [place] [address]- 7476 Nov, [facility] [place] [facility] [address] [id number] [place] [address] 2547 Nov, [facility] [place] [facility] [address] [id number] [place] [address]- 3166 Nov, [facility] [place] [facility] [address] [id number] [place] [address] 2542 Oct, [facility] [place] [facility] [address] [id number] [place] [address] 2546 Oct, [facility] [place] [facility] [address] [id number] [place] [address] 2546 Oct, [facility] [place] [facility] [address] [id number] [place] [address] 2546 Oct, [facility] [place] [facility] [address] [id number] [place] [address] 2546 Oct, [facility] [place] [facility] [address] [id number] [place] [address] 2540 Oct, [facility] [place] [facility] [address] [id number] [place] [address]- 4863 Oct, [facility] [place] [facility] [address] [id number] [place] [address]- 2994 Oct, [facility] [place] [facility] [address] [id number] [place] [address]- 2229 Sep, [facility] [place] [facility] [address] [id number] [place] [address]- 0666 Sep, [facility] [address] [id number] [place] [address]- 6810 Sep, [facility] [place] [facility] [address] [id number] [place] [address]- 5713 Sep, [facility] [place] [facility] [address] [id number] [place] [address]- 4757 August, [facility] [address] [id number] [place] [address]- 9221 August, [facility] [place] [facility] [address] [id number] [place] [address]- 1712 Jul, [facility] [place] [facility] [address] [id number] [place] [address]- 4197 Jun, [facility] [place] [facility] [address] [id number] [place] [address]- 9182 Jun, [facility] [place] [facility] [address] [id number] [place] [address]- 4575 Jun, [facility] [place] [facility] [address] [id number] [place] [address]- 2368 Jun, [facility] [place] [facility] [address] [id number] [place] [address]- 1783 Jun, [facility] [place] [facility] [address] [id number] [place] [address]- 1515 Jun, [facility] [place] [facility] [address] [id number] [place] [address] 2546 Jun, [facility] [address] [facility] [id number] [place] [address]- 2546 Jun, [facility] [address] [facility] [id number] [place] [address]- 2546 May, [facility] [address] [facility] [id number] [place] [address]- 2546 May, [facility] [address] [facility] [id number] [place] [address]- 2546 Mar, IMMUNIZATIONS No Known Immunizations SOCIAL HISTORY Never Assessed REASON FOR VISIT Hydrocodone and Morphine Due 10/22 PLAN OF CARE VITAL SIGNS MEDICATIONS Medication Instructions Dosage Frequency Start Date End Date Duration Status MS Contin 60 mg Orally every 12 hrs 1 tablet 12h Sep, 28 days Active Hydrocodone-Acetaminophen 10-325 MG Orally every 4 hours 1 tablet 4h Sep 28 days Active RESULTS No Results PROCEDURES [...] pneumonia 2012 Hospitalization History COPD exacerbation, acute bronchitis-[facility] 06/10/16
--- OUTSIDE RECORDS SUMMARY | 2018-06-11 16:09 | XMS REPORT ---
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 Name Role Phone SARA CONROY Unavailable PROBLEMS Type Condition ICD9-CM Code FYD01-UG Code Onset Dates Condition Status SNOMED Code Problem Chronic pain syndrome G89.4 Active 199453540 Problem Low serum testosterone E29.1 Active 231841899 Problem Back pain M54.9 Active 448148546 Problem Essential hypertension I10 Active 28103022 Problem Chronic obstructive pulmonary disease, unspecified J44.9 Active [id number] ALLERGIES No Information ENCOUNTERS Encounter Location Date Diagnosis [place] [id number] [place] [address] 14504- 3371 Nov, Back pain M54.9 [facility] [id number] [place] [address] 98447- 9453 Nov, Chronic obstructive pulmonary disease, unspecified J44.9 and Essential hypertension I10 [facility] [id number] [place] [address] 01288- 4178 Oct, Back pain M54.9 [place] [id number] [place] [address] 74351- 0395 Sep, Back pain M54.9 [facility] [id number] [place] [address] 80536- 3453 August, Back pain M54.9 [place] [id number] [place] [address] 57590- 1477 Jul, Back pain M54.9 [place] [id number] [place] [address] 97547- 0611 Jul, Medicare annual wellness visit, initial Z00.00 ; Chronic obstructive pulmonary disease, unspecified J44.9 ; Back pain M54.9 ; Chronic pain syndrome G89.4 ; Essential hypertension I10 ; Low serum testosterone E29.1 ; Smoking history Z87.891 and Encounter for immunization Z23 [facility] [id number] [place] [address] 99876- 5549 Jul, [facility] [address] 47756- 5479 Jun, Back pain M54.9 [facility] [address] 08844- 9149 May, Back pain M54.9 [facility] [address] 06823- 6150 May, Exposure to the flu Z20.828 [facility] [address] 83026- 5202 May, Chronic pain syndrome G89.4 ; Back pain M54.9 and Chronic obstructive pulmonary disease, unspecified J44.9 [facility] [id number] [place] [address] 53985- 5053 May, Back pain M54.9 [facility] [id number] [place] [address] 64178- 8304 Apr, Back pain M54.9 [facility] [id number] [place] [address] 28918- 2210 Mar, Back pain M54.9 [facility] [id number] [place] [address] 43450- 9977 Feb, Back pain M54.9 [facility] [address] 17585- 5474 Jan, Back pain M54.9 [facility] [id number] [place] [address] 56209- 0107 Dec, Chronic obstructive pulmonary disease, unspecified J44.9 and Back pain M54.9 [facility] [id number] [place] [address] 57953- 2653 Dec, Back pain M54.9 [facility] [id number] [place] [address] 59049- 1389 Nov, Back pain M54.9 [facility] [id number] [place] [address] 56716- 0752 Oct, Essential hypertension I10 [facility] [id number] [place] [address] 77324- 8516 Oct, Back pain M54.9 [facility] [id number] [place] [address] 07904- 7816 Oct, [facility] [id number] [place] [address] 23941- 2564 Oct, [facility] [id number] [place] [address] 84069- 2724 Sep, Back pain M54.9 [facility] [id number] [place] [address] 20094- 3873 August, [facility] [id number] [place] [address] 00478- 0909 August, Essential hypertension I10 [facility] [id number] [place] [address] 00110- 8617 August, Other dorsalgia M54.89 [facility] [id number] [place] [address] 64195- 2760 August, Back pain M54.9 ; Chronic obstructive pulmonary disease, unspecified J44.9 and Low serum testosterone E29.1 [facility] [id number] [place] [address] 04528- 8893 Jul, Other dorsalgia M54.89 [facility] [id number] [place] [address] 34679- 1198 Jun, Dorsalgia, unspecified M54.9 [facility] [id number] [place] [address] 59068- 1471 Jun, Dorsalgia, unspecified M54.9 [facility] [id number] [place] [address] 87444- 2466 Jun, [facility] [id number] [place] [address] 67889- 6506 Jun, Chronic obstructive pulmonary disease, unspecified J44.9 [facility] [id number] [place] [address] 30952- 7114 Jun, Back pain M54.9 [facility] [id number] [place] [address] 07793- 0867 May, Chronic obstructive pulmonary disease, unspecified J44.9 [facility] [id number] [place] [address] 11395- 6376 May, [facility] [id number] [place] [address] 90168- 9782 May, Other dorsalgia M54.89 [facility] [id number] [place] [address] 89023- 6597 Apr, [facility] [id number] [place] [address] 33875- 8798 Apr, Other dorsalgia M54.89 [facility] [id number] [place] [address] 86564- 6208 Mar, Chronic obstructive pulmonary disease, unspecified J44.9 ; Essential hypertension I10 and Back pain M54.9 [facility] [id number] [place] [address] 33460- 2896 Mar, [facility] [id number] [place] [address] 98435- 7603 Mar, Dorsalgia, unspecified M54.9 [facility] [id number] [place] [address] 22915- 8956 02 Dec, 2016 Edema R60.9 [facility] [id number] [place] [address] 77036- 0908 16 Feb, 2016 [facility] [id number] [place] [address] 52985- 9479 Feb, Other dorsalgia M54.89 [facility] [id number] [place] [address] 42662- 9496 Jan, Encounter for immunization Z23 and Chronic obstructive pulmonary disease, unspecified J44.9 [facility] [id number] [place] [address] 99299- 1557 Jan, [facility] [id number] [place] [address] 86306- 1471 14 Dec, 2015 [facility] [id number] [place] [address] 00577- 7176 13 Dec, 2015 [facility] [id number] [place] [address] 15298- 1806 13 Dec, 2015 Essential hypertension I10 and Back pain M54.9 [facility] [id number] [place] [address] 09953- 7320 Nov, [facility] [id number] [place] [address] 82079- 6823 Nov, [facility] [id number] [place] [address] 22982- 9577 Oct, Other dorsalgia M54.89 [facility] [id number] [place] [address] 86070- 3079 Oct, [facility] [id number] [place] [address] 27204- 5637 Sep, [facility] [id number] [place] [address] 40797- 5490 Sep, [facility] [address] [place] [address] 80716- 3880 Sep, [facility] [id number] [place] [address] 78636- 5977 August, [facility] [id number] [place] [address] 78345- 7170 August, Other dorsalgia M54.89 [facility] [id number] [place] [address] 39481- 9712 August, [facility] [id number] [place] [address] 99435- 3822 August, Chronic obstructive pulmonary disease, unspecified J44.9 and Back pain M54.9 [facility] [id number] [place] [address] 70106- 6598 August, [facility] [id number] [place] [address] 79899- 7680 August, [facility] [id number] [place] [address] 98801- 9002 August, Chronic obstructive pulmonary disease, unspecified J44.9 [facility] [id number] [place] [address] 33026- 8751 Jul, Other dorsalgia M54.89 [facility] [id number] [place] [address] 50105- 7005 Jul, Insomnia G47.00 [facility] [id number] [place] [address] 50729- 5168 Jun, Other dorsalgia M54.89 [facility] [id number] [place] [address] 83838- 8815 Jun, Other dorsalgia M54.89 [facility] [id number] [place] [address] 80844- 4508 May, COPD (chronic obstructive pulmonary disease) J44.9 and Bronchitis J40 [facility] [id number] [place] [address] 16914- 4693 May, Chronic obstructive pulmonary disease, unspecified J44.9 [facility] [address] [facility] [id number], [place] [address]- 0553 05 May, 2015 [facility] [id number] [place] [address], [place] [address]- 4106 May, Other dorsalgia M54.89 [facility] [address] [address]- 1401 Apr, Chronic obstructive pulmonary disease, unspecified J44.9 [facility] [id number] [address]- 7496 Apr, [facility] [id number] [place] [address] 35796- 7430 Mar, [facility] [id number] [place] [address] 38258- 4944 Mar, COPD (chronic obstructive pulmonary disease) J44.9 ; Back pain M54.9 and Edema R60.9 [facility] [address] [address]- 7379 Mar, [facility] [id number] [place] [address] 73136- 3293 Mar, [facility] [address] [address]- 6154 Feb, [facility] [address], [place] [address]- 6088 Feb, [facility] [address] [address]- 3124 Feb, [facility] [address] [address]- 7139 Jan, [facility] [address] [address]- 6066 Jan, [facility] [address] [address]- 5867 Jan, [facility] [address] [address]- 9809 Dec, Chronic airway obstruction, not elsewhere classified 496 ; Back pain 724.5 ; Flu vaccine need V04.81 and Prophylactic vaccination against streptococcus pneumoniae and influenza V06.6 [facility] [address] [facility] [id number], [place] [address]- 7467 Dec, [facility] [address] [facility] [id number], [place] [address]- 3393 Dec, [facility] [address] [facility] [id number], [place] [address]- 0969 Dec, [facility] [address] [facility] [id number], [place] [address]- 1469 Nov, [facility] [address] [facility] [id number], [place] [address]- 3936 Nov, [facility] [id number] [address]- 2336 Nov, [facility] [address] [facility] [id number], [place] [address]- 2151 Oct, [facility] [address] [facility] [id number], [place] [address]- 7853 Oct, [facility] [id number], [place] [address]- 7639 Oct, Unspecified arthropathy, 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 and Chronic airway obstruction, not elsewhere classified 496 [facility] [address] [facility] [id number], [place] [address]- 5218 Oct, [facility] [address] [facility] [id number], [place] [address]- 0650 Sep, [facility] [address] [facility] [id number], [place] [address]- 5706 Sep, [facility] [id number], [place] [address]- 1645 Sep, [facility] [place] [facility] [address] [id number] [place] [address]- 2971 August, [facility] [place] [facility] [address] [id number] [place] [address]- 8334 August, [facility] [place] [facility] [address] [id number] [place] [address]- 1967 August, [facility] [place] [facility] [address] [id number] [place] [address]- 0612 August, [facility] [place] [facility] [address] [id number] [place] [address]- 0503 August, [facility] [place] [facility] [address] [id number] [place] [address]- 8612 Jul, [facility] [place] [facility] [address] [id number] [place] [address]- 5281 Jul, [facility] [place] [facility] [address] [id number] [place] [address]- 0168 Jun, [facility] [place] [facility] [address] [id number] [place] [address]- 6485 Jun, [facility] [place] [facility] [address] [id number] [place] [address]- 3060 Jun, [facility] [place] [facility] [address] [id number] [place] [address]- 4820 Jun, [facility] [place] [facility] [address] [id number] [place] [address]- 3506 Jun, [facility] [place] [facility] [address] [id number] [place] [address]- 9071 Jun, [facility] [place] [facility] [address] [id number] [place] [address]- 2137 May, [facility] [place] [facility] [address] [id number] [place] [address]- 3273 May, [facility] [place] [facility] [address] [id number], [place] [address]- 5606 May, [facility] [address] [id number] [place] [address]- 6392 May, [facility] [place] [facility] [address] [id number] [place] [address]- 3174 May, [facility] [place] [facility] [address] [id number] [place] [address]- 2990 Apr, [facility] [place] [facility] [address] [id number] [place] [address]- 6450 Apr, [facility] [place] [facility] [address] [id number] [place] [address]- 1667 Apr, [facility] [place] [facility] [address] [id number] [place] [address]- 4041 Apr, [facility] [address] [id number] [place] [address]- 9951 Apr, [facility] [place] [facility] [address] [id number] [place] [address]- 6526 Apr, [facility] [address] [id number] [place] [address]- 9443 Apr, [facility] [place] [facility] [address] [id number] [place] [address]- 6346 Mar, [facility] [place] [facility] [address] [id number], [place] [address]- 8325 Mar, [facility] [place] [facility] [address] [id number] [place] [address]- 5066 Mar, [facility] [place] [facility] [address] [id number] [place] [address]- 7932 Mar, [facility] [place] [facility] [address] [id number] [place] 1001 Mar, [facility] [place] [facility] [address] [id number] [place] [address]- 8776 Mar, [facility] [place] [facility] [address] [id number] [place] [address]- 0994 12 Mar, 2014 [facility] [place] [facility] [address] [id number] [place] [address]- 1678 Mar, [facility] [place] [facility] [address] [id number] [place] [address]- 0964 Mar, [facility] [place] [facility] [address] [id number] [place] [address]- 2778 Mar, [facility] [place] [facility] [address] [id number] [place] [address]- 7580 Feb, [facility] [place] [facility] [address] [id number] [place] [address]- 7465 Feb, [facility] [place] [facility] [address] [id number] [place] [address]- 8420 Jan, [facility] [place] [facility] [address] [id number] [place] [address]- 5671 Jan, [facility] [place] [facility] [address] [id number] [place] [address]- 8210 14 Jan, 2014 [facility] [place] [facility] [address] [id number] [place] [address]- 5034 14 Jan, 2014 [facility] [place] [facility] [address] [id number] [place] [address]- 8019 14 Jan, 2014 [facility] [place] [facility] [address] [id number] [place] [address]- 6244 14 Jan, 2014 [facility] [place] [facility] [address] [id number] [place] [address]- 1753 13 Jan, 2014 [facility] [place] [facility] [address] [id number] [place] [address]- 8622 Jan, [facility] [place] [facility] [address] [id number] [place] 2758 Jan, [facility] [place] [facility] [address] [id number] [place] [address]- 4562 Jan, [facility] [place] [facility] [address] [id number] [place] [address]- 1554 Jan, [facility] [place] [facility] [address] [id number] [place] [address]- 0015 Jan, [facility] [place] [facility] [address] [id number] [place] [address]- 1244 Dec, [facility] [place] [facility] [address] [id number] [place] [address]- 1285 Dec, [facility] [place] [facility] [address] [id number] [place] [address]- 3992 Dec, [facility] [place] [facility] [address] [id number] [place] [address]- 5978 Dec, [facility] [place] [facility] [address] [id number] [place] [address]- 9568 Dec, [facility] [place] [facility] [address] [id number] [place] [address]- 7362 Nov, [facility] [place] [facility] [address] [id number] [place] [address]- 6420 Nov, [facility] [place] [facility] [address] [id number] [place] [address]- 7439 Nov, [facility] [place] [facility] [address] [id number] [place] [address]- 7835 Nov, [facility] [place] [facility] [address] [id number], [place] [address]- 0384 Oct, [facility] [place] [facility] [address] [id number] [place] [address]- 5273 Oct, [facility] [place] [facility] [address] [id number] [place] [address]- 3205 Oct, [facility] [place] [facility] [address] [id number] [place] [address]- 3268 Oct, [facility] [place] [facility] [address] [id number] [place] [address]- 7749 Oct, [facility] [place] [facility] [address] [id number] [place] [address]- 2478 Oct, [facility] [place] [facility] [address] [id number] [place] [address]- 7429 Oct, [facility] [place] [facility] [address] [id number] [place] [address]- 2065 Oct, [facility] [place] [facility] [address] [id number] [place] [address]- 6391 Oct, [facility] [place] [facility] [address] [id number] [place] [address]- 4062 Oct, [facility] [place] [facility] [address] [id number] [place] [address]- 4067 Sep, [facility] [place] [facility] [address] [id number] [place] [address]- 1088 Sep, [facility] [place] [facility] [address] [id number] [place] [address]- 1040 Sep, [facility] [place] [facility] [address] [id number] [place] [address]- 0798 Sep, [facility] [place] [facility] [address] [id number] [place] [address]- 6298 Sep, [facility] [place] [facility] [address] [id number] [place] [address]- 8757 Sep, [facility] [place] [facility] [address] [id number] [place] [address]- 5480 August, [facility] [place] [facility] [address] [id number] [place] [address]- 4648 August, [facility] [place] [facility] [address] [id number] [place] [address]- 8865 August, [facility] [place] [facility] [address] [id number] [place] [address]- 8530 August, [facility] [place] [facility] [address] [id number] [place] [address]- 8573 August, [facility] [place] [facility] [address] [id number] [place] [address]- 0870 August, [facility] [place] [facility] [address] [id number] [place] [address] Jul, [facility] [place] [facility] [address] [id number] [place] [address] Jul, [facility] [place] [facility] [address] [id number] [place] [address] Jul, [facility] [place] [facility] [address] [id number] [place] [address] Jul, [facility] [place] [facility] [address] [id number] [place] [address] Jul, [facility] [place] [facility] [address] [id number] [place] [address] Jul, [facility] [place] [facility] [address] [id number] [place] [address] Jul, [facility] [place] [facility] [address] [id number] [place] [address] Jul, [facility] [place] [facility] [address] [id number] [place] [address] Jul, [facility] [place] [facility] [address] [id number] [place] [address] Jun, [facility] [place] [facility] [address] [id number] [place] [address] Jun, [facility] [place] [facility] [address] [id number] [place] [address] Jun, [facility] [place] [facility] [address] [id number] [place] [address] May, [facility] [place] [facility] [address] [id number] [place] [address] May, [facility] [address] [id number] [place] [address] May, [facility] [place] [facility] [address] [id number] [place] [address] May, [facility] [place] [facility] [address] [id number] [place] [address] May, [facility] [place] [facility] [address] [id number] [place] [address] May, [facility] [address] [id number] [place] [address] Apr, [facility] [place] [facility] [address] [id number] [place] [address] Apr, [facility] [address] [id number] [place] [address] Apr, [facility] [place] [facility] [address] [id number] [place] [address] Apr, [facility] [address] [id number] [place] [address] Apr, [facility] [place] [facility] [address] [id number] [place] [address] Apr, [facility] [address] [id number] [place] [address] Apr, [facility] [place] [facility] [address] [id number], [place] [address] Apr, [facility] [place] [facility] [address] [id number] [place] [address] Apr, [facility] [place] [facility] [address] [id number] [place] [address] Apr, [facility] [place] [facility] [address] [id number] [place] [address] Mar, [facility] [place] [facility] [address] [id number] [place] [address] 30 Mar, 2013 [facility] [place] [facility] [address] [id number] [place] [address] Mar, [facility] [place] [facility] [address] [id number] [place] [address] Mar, [facility] [place] [facility] [address] [id number] [place] [address] Mar, [facility] [place] [facility] [address] [id number] [place] [address] Mar, [facility] [place] [facility] [address] [id number] [place] [address] Mar, [facility] [place] [facility] [address] [id number] [place] [address] Mar, [facility] [place] [facility] [address] [id number] [place] [address] Mar, [facility] [place] [facility] [address] [id number] [place] [address] Mar, [facility] [place] [facility] [address] [id number] [place] [address] Mar, [facility] [place] [facility] [address] [id number] [place] [address] Feb, [facility] [place] [facility] [address] [id number] [place] [address] Feb, [facility] [place] [facility] [address] [id number] [place] [address] Feb, [facility] [place] [facility] [address] [id number] [place] [address] Feb, [facility] [place] [facility] [address] [id number] [place] [address] Feb, [facility] [place] [facility] [address] [id number] [place] [address] Feb, [facility] [place] [facility] [address] [id number] [place] [address] Feb, [facility] [place] [facility] [address] [id number] [place] [address] Feb, [facility] [place] [facility] [address] [id number] [place] [address] Feb, [facility] [place] [facility] [address] [id number] [place] [address] Feb, [facility] [place] [facility] [address] [id number] [place] [address] Feb, [facility] [place] [facility] [address] [id number] [place] [address] Feb, [facility] [place] [facility] [address] [id number] [place] [address] 4[address] Jan, [facility] [place] [facility] [address] [id number], [place] [address] Jan, [facility] [place] [facility] [address] [id number], [place] [address] 94[address] Jan, [facility] [place] [facility] [address] [id number], [place] [address] Jan, [facility] [place] [facility] [address] [id number], [place] [address] Jan, [facility] [place] [facility] [address] [id number], [place] [address] 18 Jan, 2013 [facility] [place] [facility] [address] [id number], [place] [address] 15 Jan, 2013 [facility] [place] [facility] [address] [id number], [place] [address] 9487 15 Jan, 2013 [facility] [place] [facility] [address] [id number][place] [address] Jan, [facility] [place] [facility] [address] [id number] [place] [address] 27 Dec, 2012 [facility] [place] [facility] [address] [id number] [place] [address]- [address]88 18 Dec, 2012 [facility] [place] [facility] [address] [id number] [place] [address]- 5696 17 Dec, 2012 [facility] [place] [facility] [address] [id number] [place] [address]- 4761 11 Dec, 2012 [facility] [place] [facility] [address] [id number] [place] [address]- 2984 05 Dec, 2012 [facility] [place] [facility] [address] [id number] [place] [address] 8297 Nov, [facility] [place] [facility] [address] [id number] [place] [address]- 7547 Nov, [facility] [place] [facility] [address] [id number] [place] [address] 5705 Oct, [facility] [place] [facility] [address] [id number] [place] [address]109 Oct, [facility] [place] [facility] [address] [id number] [place] [address]- 2554 Oct, [facility] [place] [facility] [address] [id number] [place] [address]- 7612 Oct, [facility] [place] [facility] [address] [id number] [place] [address]- 1764 Oct, [facility] [place] [facility] [address] [id number] [place] [address]- 8913 Oct, [facility] [place] [facility] [address] [id number] [place] [address]- 1090 Sep, [facility] [place] [facility] [address] [id number] [place] [address]- 5765 24 Sep, 2012 [facility] [place] [facility] [address] [id number] [place] [address]- 7997 Sep, [facility] [place] [facility] [address] [id number] [place] [address]- 4479 Sep, [facility] [address] [id number] [place] [address]- 9486 Sep, [facility] [address] [id number] [place] [address] 4[address] Sep, [facility] [address] [id number] [place] [address]- 7765 Sep, [facility] [address] [id number] [place] [address] 408[address] August, [facility] [address] [id number] [place] [address]- 5939 August, [facility] [address] [id number] [place] [address] 6187 August, [facility] [address] [id number] [place] [address] 7431 August, [facility] [address] [id number] [place] [address] 3928 August, [facility] [address] [id number] [place] [address] 7021 August, [facility] [address] [id number] [place] [address]- 7068 Jul, [facility] [address] [id number] [place] [address]- 9391 Jul, [facility] [address] [id number] [place] [address] 7443 Jul, [facility] [place] [facility] [address] [id number] [place] [address] 4823 Jul, [facility] [address] [id number] [place] [address]- [address]443 08 Jul, 2012 [facility] [address] [id number] [place] [address]- 2546 Jul, [facility] [address] [id number] [place] [address]- 1259 Jun, [facility] [address] [id number] [place] [address]- 8221 Jun, [facility] [address] [id number] [place] [address]- 1466 Jun, [facility] [address] [id number] [place] [address]- 0048 Jun, [facility] [address] [id number] [place] [address]- 9250 Jun, [facility] [address] [id number] [place] [address]- 8967 Jun, [facility] [address] [id number] [place] [address]- 1214 May, [facility] [address] [id number] [place] [address]- 3948 May, [facility] [address] [id number] [place] [address]- 4236 May, [facility] [address] [facility] [id number] [place] [address]- 3846 May, [facility] [address] [id number] [place] [address]- 2726 Apr, [facility] [place] [facility] [address] [id number], [place] [address]- 4332 Apr, [facility] [place] [facility] [address] [id number] [place] [address]- 7835 Apr, [facility] [place] [facility] [address] [id number] [place] [address]- 4857 Apr, [facility] [place] [facility] [address] [id number] [place] [address]- 7066 Apr, [facility] [place] [facility] [address] [id number] [place] [address]- 8913 Apr, [facility] [place] [facility] [address] [id number] [place] [address]- 2233 Apr, [facility] [place] [facility] [address] [id number] [place] [address]- 4056 Apr, [facility] [place] [facility] [address] [id number] [place] [address]- 7702 Apr, [facility] [place] [facility] [address] [id number] [place] [address]- 7550 Mar, [facility] [place] [facility] [address] [id number] [place] [address]- 1578 Mar, [facility] [place] [facility] [address] [id number] [place] [address]- 6724 Mar, [facility] [place] [facility] [address] [id number] [place] [address]- 4004 Mar, [facility] [place] [facility] [address] [id number] [place] [address]- 1545 Mar, [facility] [place] [facility] [address] [id number] [place] [address]- 6358 Mar, [facility] [place] [facility] [address] [id number] [place] [address]- 5759 Mar, [facility] [place] [facility] [address] [id number] [place] [address]- 3254 Mar, [facility] [place] [facility] [address] [id number] [place] [address]- 6241 Mar, [facility] [place] [facility] [address] [id number] [place] [address]- 9906 Mar, [facility] [place] [facility] [address] [id number] [place] [address]- 3490 Feb, [facility] [place] [facility] [address] [id number] [place] [address]- 8819 Feb, [facility] [place] [facility] [address] [id number] [place] [address]- 4313 Feb, [facility] [place] [facility] [address] [id number] [place] [address]- 6951 Feb, [facility] [place] [facility] [address] [facility] [id number] [place] [address]- 5166 Feb, [facility] [place] [facility] [address] [id number] [place] [address], [place] [address]- [address]109 15 Feb, 2012 [facility] [place] [facility] [address] [id number] [place] [address]- 0384 14 Feb, 2012 [facility] [place] [facility] [address] [id number] [place] [address], [place] [address]- 1616 Jan, [facility] [place] [facility] [address] [id number] [place] [address]- 6629 Jan, [facility] [place] [facility] [address] [id number], [place] [address]- 9923 Jan, [facility] [place] [facility] [address] [id number] [place] [address]- 7357 Jan, [facility] [place] [facility] [address] [facility] [id number], [place] [address]- 9053 Jan, [facility] [place] [facility] [address] [id number], [place] [address]- 8827 Jan, [facility] [place] [facility] [address] [id number], [place] [address]- 6945 Jan, [facility] [place] [facility] [address] [id number], [place] [address]- 7219 18 Jan, 2012 [facility] [place] [facility] [address] [facility] [id number], [place] [address]- 7809 18 Jan, 2012 [facility] [place] [facility] [address] [facility] [id number], [place] [address]- 5161 17 Jan, 2012 [facility] [place] [facility] [address] [id number] [place] [address]- 3256 27 Dec, 2011 [facility] [place] [facility] [address] [id number] [place] [address] 2546 20 Dec, 2011 [facility] [place] [facility] [address] [id number] [place] [address] 2546 17 Dec, 2011 [facility] [place] [facility] [address] [id number] [place] [address] 2546 06 Dec, 2011 [facility] [place] [facility] [address] [id number] [place] [address] 2546 05 Dec, 2011 [facility] [place] [facility] [address] [id number] [place] [address]- 5026 02 Dec, 2011 [facility] [place] [facility] [address] [id number] [place] [address] 2546 Nov, [facility] [place] [facility] [address] [id number] [place] [address]- 2056 Nov, [facility] [place] [facility] [address] [id number] [place] [address] 2544 Nov, [facility] [place] [facility] [address] [id number] [place] [address]- 2556 Nov, [facility] [place] [facility] [address] [id number] [place] [address] 2541 Oct, [facility] [place] [facility] [address] [id number] [place] [address] 2546 Oct, [facility] [place] [facility] [address] [id number] [place] [address] 2546 Oct, [facility] [place] [facility] [address] [id number] [place] [address] 2546 Oct, [facility] [place] [facility] [address] [id number] [place] [address] 2546 Oct, [facility] [place] [facility] [address] [id number] [place] [address] 2547 Oct, [facility] [place] [facility] [address] [id number] [place] [address]- 4857 Oct, [facility] [place] [facility] [address] [id number] [place] [address]- 7777 Oct, [facility] [place] [facility] [address] [id number] [place] [address]- 3102 Sep, [facility] [place] [facility] [address] [id number] [place] [address]- 3980 Sep, [facility] [address] [id number] [place] [address]- 8415 Sep, [facility] [place] [facility] [address] [id number] [place] [address]- 3824 Sep, [facility] [place] [facility] [address] [id number] [place] [address]- 9014 August, [facility] [address] [id number] [place] [address]- 4345 August, [facility] [place] [facility] [address] [id number] [place] [address]- 5226 Jul, [facility] [place] [facility] [address] [id number] [place] [address]- 3164 Jun, [facility] [place] [facility] [address] [id number] [place] [address]- 8697 Jun, [facility] [place] [facility] [address] [id number] [place] [address]- 0025 Jun, [facility] [place] [facility] [address] [id number] [place] [address]- 3188 Jun, [facility] [place] [facility] [address] [id number] [place] [address]- 9353 Jun, [facility] [place] [facility] [address] [id number] [place] [address]- 3896 Jun, [facility] [place] [facility] [address] [id number] [place] [address] 2546 Jun, [facility] [address] [facility] [id number] [place] [address]- 2546 Jun, [facility] [address] [facility] [id number], [place] [address]- 2546 May, [facility] [address] [facility] [id number], [place] [address]- 2546 May, [facility] [address] [facility] [id number], [place] [address]- 2546 Mar, IMMUNIZATIONS No Known Immunizations SOCIAL HISTORY Never Assessed REASON FOR VISIT Morphine and Hydrocodone 11/19 PLAN OF CARE VITAL SIGNS MEDICATIONS Medication Instructions Dosage Frequency Start Date End Date Duration Status MS Contin 60 mg Orally every 12 hrs 1 tablet 12h Oct, 28 days Active Hydrocodone-Acetaminophen 10-325 MG Orally every 4 hours 1 tablet 4h Oct 28 days Active RESULTS No Results PROCEDURES [...] pneumonia 2012 Hospitalization History COPD exacerbation, acute bronchitis-[facility] 06/10/16
--- OUTSIDE RECORDS SUMMARY | 2018-06-11 16:10 | XMS REPORT ---
Author Author SARA CONROY [facility] Address [address] [place] [address] Care Team Providers Care Media Analyst Name Role Phone SARA CONROY Unavailable PROBLEMS Type Condition ICD9-CM Code [id number] Code Onset Dates Condition Status SNOMED Code Problem Chronic pain syndrome G89.4 Active 850828834 Problem Low serum testosterone E29.1 Active 325270263 Problem Back pain M54.9 Active 036953131 Problem Essential hypertension I10 Active 00306561 Problem Chronic obstructive pulmonary disease, unspecified J44.9 Active [id number] ALLERGIES No Information ENCOUNTERS Encounter Location Date Diagnosis [facility] [facility] [id number] [place] [address] 41853- 0456 Nov, [place] [facility] [id number] [place] [address] 34144- 0731 Nov, Back pain M54.9 ; Chronic obstructive pulmonary disease, unspecified J44.9 and Essential hypertension I10 [facility] [id number] [place] [address] 01642- 3681 Oct, Back pain M54.9 [place] [id number] [place] [address] 12839- 3736 Sep, Back pain M54.9 [facility] [id number] [place] [address] 77972- 5046 August, Back pain M54.9 [place] [id number] [place] [address] 68018- 2221 Jul, Back pain M54.9 [place] [id number] [place] [address] 90762- 0467 Jul, Medicare annual wellness visit, initial Z00.00 ; Chronic obstructive pulmonary disease, unspecified J44.9 ; Back pain M54.9 ; Chronic pain syndrome G89.4 ; Essential hypertension I10 ; Low serum testosterone E29.1 ; Smoking history Z87.891 and Encounter for immunization Z23 [facility] [id number] [place] [address] 75953- 7517 Jul, [facility] [address] 89157- 4040 Jun, Back pain M54.9 [facility] [address] 88495- 9295 May, Back pain M54.9 [place] [address] 85046- 0628 May, Exposure to the flu Z20.828 [facility] [id number] [place] [address] 85097- 4739 May, Chronic pain syndrome G89.4 ; Back pain M54.9 and Chronic obstructive pulmonary disease, unspecified J44.9 [facility] [id number] [place] [address] 20105- 6895 May, Back pain M54.9 [facility] [id number] [place] [address] 56987- 7838 Apr, Back pain M54.9 [facility] [id number] [place] [address] 57154- 1941 Mar, Back pain M54.9 [facility] [id number] [place] [address] 97506- 5896 Feb, Back pain M54.9 [facility] [address] 00758- 5000 Jan, Back pain M54.9 [facility] [id number] [place] [address] 80108- 9554 Dec, Chronic obstructive pulmonary disease, unspecified J44.9 and Back pain M54.9 [facility] [address] [address]- 4114 Dec, Back pain M54.9 [facility] [id number] [place] [address] 67563- 7586 Nov, Back pain M54.9 [facility] [id number] [place] [address] 95956- 3026 Oct, Essential hypertension I10 [facility] [id number] [place] [address] 30594- 4447 Oct, Back pain M54.9 [facility] [id number] [place] [address] 33140- 8576 Oct, [facility] [id number] [place] [address] 01145- 7192 Oct, [facility] [id number] [place] [address] 42988- 7037 Sep, Back pain M54.9 [facility] [id number] [place] [address] 04438- 0559 August, [facility] [id number] [place] [address] 18706- 3207 August, Essential hypertension I10 [facility] [id number] [place] [address] 17522- 8309 August, Other dorsalgia M54.89 [facility] [id number] [place] [address] 63654- 1665 August, Back pain M54.9 ; Chronic obstructive pulmonary disease, unspecified J44.9 and Low serum testosterone E29.1 [facility] [id number] [place] [address] 85750- 9699 Jul, Other dorsalgia M54.89 [facility] [id number] [place] [address] 68602- 5988 Jun, Dorsalgia, unspecified M54.9 [facility] [id number] [place] [address] 55511- 8885 Jun, Dorsalgia, unspecified M54.9 [facility] [id number] [place] [address] 35888- 5406 Jun, [facility] [id number] [place] [address] 49859- 4916 Jun, Chronic obstructive pulmonary disease, unspecified J44.9 [facility] [id number] [place] [address] 54453- 5356 Jun, Back pain M54.9 [facility] [id number] [place] [address] 21583- 3942 May, Chronic obstructive pulmonary disease, unspecified J44.9 [facility] [id number] [place] [address] 60942- 0096 May, [facility] [id number] [place] [address] 55499- 9486 May, Other dorsalgia M54.89 [facility] [id number] [place] [address] 36675- 0163 Apr, [facility] [id number] [place] [address] 94197- 7195 Apr, Other dorsalgia M54.89 [facility] [id number] [place] [address] 97908- 1016 Mar, Chronic obstructive pulmonary disease, unspecified J44.9 ; Essential hypertension I10 and Back pain M54.9 [facility] [id number] [place] [address] 79072- 0706 Mar, [facility] [id number] [place] [address] 77177- 2023 Mar, Dorsalgia, unspecified M54.9 [facility] [id number] [place] [address] 65380- 9706 Mar, Edema R60.9 [facility] [id number] [place] [address] 15024- 0955 Feb, [facility] [id number] [place] [address] 26508- 9914 Feb, Other dorsalgia M54.89 [facility] [id number] [place] [address] 77278- 0447 Jan, Encounter for immunization Z23 and Chronic obstructive pulmonary disease, unspecified J44.9 [facility] [id number] [place] [address] 78095- 4712 Jan, [facility] [id number] [place] [address] 21325- 0692 14 Dec, 2015 [facility] [id number] [place] [address] 95957- 4414 13 Dec, 2015 [facility] [id number] [place] [address] 05562- 5321 13 Dec, 2015 Essential hypertension I10 and Back pain M54.9 [facility] [id number] [place] [address] 64232- 9141 Nov, [facility] [id number] [place] [address] 28527- 9007 Nov, [facility] [id number] [place] [address] 32726- 7546 Oct, Other dorsalgia M54.89 [facility] [id number] [place] [address] 60958- 7737 Oct, [facility] [id number] [place] [address] 29959- 1196 Sep, [facility] [id number] [place] [address] 46228- 6881 Sep, [facility] [id number] [place] [address] 49813- 5984 Sep, [facility] [id number] [address]- 1028 August, [facility] [id number] [place] [address] 73006- 2174 August, Other dorsalgia M54.89 [facility] [id number] [place] [address] 92789- 0292 August, [facility] [id number] [place] [address] 73395- 7628 August, Chronic obstructive pulmonary disease, unspecified J44.9 and Back pain M54.9 [facility] [id number] [place] [address] 47476- 0409 August, [facility] [id number] [place] [address] 86839- 8665 August, [facility] [id number] [place] [address] 15562- 5979 August, Chronic obstructive pulmonary disease, unspecified J44.9 [facility] [id number] [place] [address] 33645- 8380 Jul, Other dorsalgia M54.89 [facility] [id number] [place] [address] 51689- 1249 Jul, Insomnia G47.00 [facility] [id number] [place] [address] 50598- 8461 Jun, Other dorsalgia M54.89 [facility] [id number] [place] [address] 04808- 8733 Jun, Other dorsalgia M54.89 [facility] [id number] [place] [address] 43334- 9109 May, COPD (chronic obstructive pulmonary disease) J44.9 and Bronchitis J40 [facility] [id number] [place] [address] 88042- 0474 May, Chronic obstructive pulmonary disease, unspecified J44.9 [facility] [address] [facility] [id number] [address]- 0200 May, [facility] [id number] [place] [address], [place] [address]- 2794 May, Other dorsalgia M54.89 [facility] [id number] [place] [address], [place] [address]- 7966 Apr, Chronic obstructive pulmonary disease, unspecified J44.9 [facility] [id number] [place] [address], [place] [address]- 4996 Apr, [facility] [id number] [place] [address] 19433- 6318 Mar, [facility] [id number] [place] [address] 80307- 6551 Mar, COPD (chronic obstructive pulmonary disease) J44.9 ; Back pain M54.9 and Edema R60.9 [facility] [address] [address]- 8282 Mar, [facility] [id number] [place] [address] 18957- 9635 Mar, [facility] [address] [address]- 9089 Feb, [facility] [address] [address]- 2965 Feb, [facility] [address] [address]- 1660 Feb, [facility] [address] [address]- 0731 Jan, [facility] [address] [address]- 8591 Jan, [facility] [address] [address]- 2433 Jan, [facility] [id number] [address]- 7942 Dec, Chronic airway obstruction, not elsewhere classified 496 ; Back pain 724.5 ; Flu vaccine need V04.81 and Prophylactic vaccination against streptococcus pneumoniae and influenza V06.6 [facility] [address] [facility] [id number], [place] [address]- 2753 Dec, [facility] [address] [facility] [id number], [place] [address]- 7707 Dec, [facility] [address] [facility] [id number], [place] [address]- 8828 Dec, [facility] [address] [facility] [id number], [place] [address]- 1970 Nov, [facility] [address] [facility] [id number], [place] [address]- 8919 Nov, [facility] [address] [facility] [id number], [place] [address]- 9788 Nov, [facility] [address] [facility] [id number], [place] [address]- 0601 Oct, [facility] [address] [facility] [id number], [place] [address]- 9082 Oct, [facility] [address] [facility] [id number], [place] [address]- 9488 Oct, Unspecified arthropathy, 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 and Chronic airway obstruction, not elsewhere classified 496 [facility] [address] [facility] [id number], [place] [address]- 6738 Oct, [facility] [address] [facility] [id number], [place] [address]- 4894 Sep, [facility] [address] [facility] [id number], [place] [address]- 7833 Sep, [facility] [address] [facility] [id number], [place] [address]- 2088 Sep, [facility] [place] [facility] [address] [id number] [place] [address]- 5098 August, [facility] [place] [facility] [address] [id number] [place] [address]- 2728 August, [facility] [place] [facility] [address] [id number] [place] [address]- 2200 August, [facility] [place] [facility] [address] [id number] [place] [address]- 4546 August, [facility] [place] [facility] [address] [id number] [place] [address]- 0920 August, [facility] [place] [facility] [address] [id number] [place] [address]- 5076 Jul, [facility] [place] [facility] [address] [id number] [place] [address]- 7824 Jul, [facility] [place] [facility] [address] [id number] [place] [address]- 1763 Jun, [facility] [place] [facility] [address] [id number] [place] [address]- 7399 Jun, [facility] [place] [facility] [address] [id number] [place] [address]- 1462 Jun, [facility] [place] [facility] [address] [id number] [place] [address]- 5915 Jun, [facility] [place] [facility] [address] [id number] [place] [address]- 0999 Jun, [facility] [place] [facility] [address] [id number] [place] [address]- 9259 Jun, [facility] [place] [facility] [address] [id number] [place] [address]- 2461 May, [facility] [place] [facility] [address] [id number] [place] [address]- 5835 May, [facility] [place] [facility] [address] [id number] [place] [address]- 7211 May, [facility] [place] [facility] [address] [id number] [place] [address]- 0979 May, [facility] [place] [facility] [address] [id number] [place] [address]- 1998 May, [facility] [place] [facility] [address] [facility] [id number] [place] [address]- 6634 Apr, [facility] [place] [facility] [address] [id number] [place] [address]- 2947 Apr, [facility] [place] [facility] [address] [id number] [place] [address]- 4200 Apr, [facility] [place] [facility] [address] [id number] [place] [address]- 9499 Apr, [facility] [place] [facility] [address] [facility] [id number] [place] [address]- 9125 Apr, [facility] [place] [facility] [address] [facility] [id number] [place] [address]- 0642 Apr, [facility] [place] [facility] [address] [facility] [id number] [place] [address]- 8795 Apr, [facility] [place] [facility] [address] [facility] [id number] [place] [address]- 8222 Mar, [facility] [place] [facility] [address] [id number] [place] [address]- 5584 Mar, [facility] [place] [facility] [address] [id number] [place] [address]- 5024 Mar, [facility] [place] [facility] [address] [id number] [place] [address]- 2781 Mar, [facility] [place] [facility] [address] [id number] [place] [address]- 7795 Mar, [facility] [place] [facility] [address] [facility] [id number] [place] [address]- 8330 Mar, [facility] [place] [facility] [address] [id number] [place] [address]- 9714 12 Mar, 2014 [facility] [place] [facility] [address] [id number] [place] [address]- 5580 Mar, [facility] [place] [facility] [address] [id number] [place] [address]- 2023 Mar, [facility] [place] [facility] [address] [id number] [place] [address]- 6416 Mar, [facility] [place] [facility] [address] [id number] [place] [address]- 5186 Feb, [facility] [place] [facility] [address] [id number] [place] [address]- 1311 Feb, [facility] [place] [facility] [address] [id number] [place] [address]- 6907 Jan, [facility] [place] [facility] [address] [id number] [place] [address]- 9436 20 Jan, 2014 [facility] [place] [facility] [address] [id number] [place] [address]- 7498 14 Jan, 2014 [facility] [place] [facility] [address] [id number] [place] [address]- 6384 14 Jan, 2014 [facility] [place] [facility] [address] [id number] [place] [address]- 3981 14 Jan, 2014 [facility] [place] [facility] [address] [id number] [place] [address]- 6756 14 Jan, 2014 [facility] [place] [facility] [address] [id number] [place] [address]- 4026 13 Jan, 2014 [facility] [place] [facility] [address] [id number] [place] [address]- 5250 13 Jan, 2014 [facility] [place] [facility] [address] [id number] [place] 4508 09 Jan, 2014 [facility] [place] [facility] [address] [id number] [place] [address]- 5459 Jan, [facility] [place] [facility] [address] [id number] [place] [address]- 5369 Jan, [facility] [place] [facility] [address] [id number] [place] [address]- 2777 Jan, [facility] [place] [facility] [address] [id number] [place] [address]- 8606 Dec, [facility] [place] [facility] [address] [id number] [place] [address]- 6968 Dec, [facility] [place] [facility] [address] [id number] [place] [address]- 9678 Dec, [facility] [place] [facility] [address] [id number] [place] [address]- 9577 Dec, [facility] [place] [facility] [address] [id number] [place] [address]- 8223 Dec, [facility] [place] [facility] [address] [id number] [place] [address]- 9011 Nov, [facility] [place] [facility] [address] [id number] [place] [address]- 8221 Nov, [facility] [place] [facility] [address] [id number] [place] [address]- 8756 Nov, [facility] [place] [facility] [address] [id number] [place] [address]- 0910 Nov, [facility] [place] [facility] [address] [id number], [place] [address]- 0172 Oct, [facility] [place] [facility] [address] [id number] [place] [address]- 1968 Oct, [facility] [place] [facility] [address] [id number] [place] [address]- 6584 Oct, [facility] [place] [facility] [address] [id number] [place] [address]- 4850 Oct, [facility] [place] [facility] [address] [id number] [place] [address]- 6260 Oct, [facility] [place] [facility] [address] [id number] [place] [address]- 7907 Oct, [facility] [place] [facility] [address] [id number] [place] [address]- 9777 Oct, [facility] [place] [facility] [address] [id number] [place] [address]- 7297 Oct, [facility] [place] [facility] [address] [id number] [place] [address]- 3855 Oct, [facility] [place] [facility] [address] [id number] [place] [address]- 6542 Oct, [facility] [place] [facility] [address] [id number] [place] [address]- 3039 Sep, [facility] [place] [facility] [address] [id number] [place] [address] Sep, [facility] [place] [facility] [address] [id number] [place] [address] Sep, [facility] [place] [facility] [address] [id number] [place] [address] Sep, [facility] [place] [facility] [address] [id number] [place] [address] Sep, [facility] [place] [facility] [address] [id number] [place] [address] Sep, [facility] [place] [facility] [address] [id number] [place] [address] August, [facility] [place] [facility] [address] [id number] [place] [address] August, [facility] [place] [facility] [address] [id number] [place] [address] August, [facility] [place] [facility] [address] [id number] [place] [address] August, [facility] [place] [facility] [address] [id number] [place] [address] August, [facility] [place] [facility] [address] [id number] [place] [address] August, [facility] [place] [facility] [address] [id number] [place] [address] Jul, [facility] [place] [facility] [address] [id number] [place] [address] Jul, [facility] [place] [facility] [address] [id number] [place] [address] Jul, [facility] [place] [facility] [address] [id number] [place] [address] Jul, [facility] [place] [facility] [address] [id number] [place] [address] Jul, [facility] [place] [facility] [address] [id number] [place] [address] Jul, [facility] [place] [facility] [address] [id number] [place] [address] Jul, [facility] [place] [facility] [address] [id number] [place] [address] Jul, [facility] [place] [facility] [address] [id number] [place] [address] Jul, [facility] [place] [facility] [address] [id number] [place] [address] Jun, [facility] [place] [facility] [address] [id number] [place] [address] Jun, [facility] [place] [facility] [address] [id number] [place] [address] Jun, [facility] [place] [facility] [address] [id number] [place] [address] May, [facility] [place] [facility] [address] [id number] [place] [address] May, [facility] [address] [id number] [place] [address] May, [facility] [place] [facility] [address] [id number] [place] [address] May, [facility] [place] [facility] [address] [id number] [place] [address] May, [facility] [place] [facility] [address] [id number] [place] [address] May, [facility] [place] [facility] [address] [id number] [place] [address] Apr, [facility] [place] [facility] [address] [id number] [place] [address] Apr, [facility] [address] [id number] [place] [address] Apr, [facility] [place] [facility] [address] [id number] [place] [address] Apr, [facility] [place] [facility] [address] [id number] [place] [address] Apr, [facility] [place] [facility] [address] [id number] [place] [address] Apr, [facility] [place] [facility] [address] [id number] [place] [address] Apr, [facility] [place] [facility] [address] [id number] [place] [address] Apr, [facility] [place] [facility] [address] [id number] [place] [address] Apr, [facility] [place] [facility] [address] [id number] [place] [address] Apr, [facility] [place] [facility] [address] [id number] [place] [address] Mar, [facility] [place] [facility] [address] [id number] [place] [address] Mar, [facility] [place] [facility] [address] [id number] [place] [address] Mar, [facility] [place] [facility] [address] [id number] [place] [address] Mar, [facility] [place] [facility] [address] [id number] [place] [address] Mar, [facility] [place] [facility] [address] [id number] [place] [address] Mar, [facility] [place] [facility] [address] [id number] [place] [address] Mar, [facility] [facility] [address] [id number] [place] [address] Mar, [facility] [place] [facility] [address] [id number] [place] [address] Mar, [facility] [place] [facility] [address] [id number] [place] [address] Mar, [facility] [place] [facility] [address] [id number] [place] [address] 37[address] Mar, [facility] [place] [facility] [address] [id number] [place] [address] Feb, [facility] [place] [facility] [address] [id number] [place] [address] 2617 Feb, [facility] [place] [facility] [address] [id number] [place] [address] 4641 Feb, [facility] [place] [facility] [address] [id number] [place] [address] 2449 Feb, [facility] [place] [facility] [address] [id number] [place] [address] 27[address] Feb, [facility] [place] [facility] [address] [id number] [place] [address] 3603 Feb, [facility] [place] [facility] [address] [id number] [place] [address] 8148 Feb, [facility] [place] [facility] [address] [id number] [place] [address] 0173 Feb, [facility] [place] [facility] [address] [id number] [place] [address] 6702 Feb, [facility] [place] [facility] [address] [id number] [place] [address]- 8669 Feb, [facility] [place] [facility] [address] [id number] [place] [address] Feb, [facility] [place] [facility] [address] [id number] [place] [address]- 9192 Feb, [facility] [place] [facility] [address] [id number] [place] [address]- 5829 Jan, [facility] [place] [facility] [address] [id number], [place] [address] Jan, [facility] [place] [facility] [address] [id number], [place] [address] 5537 Jan, [facility] [place] [facility] [address] [id number], [place] [address] 6275 Jan, [facility] [place] [facility] [address] [id number], [place] [address] 1158 Jan, [facility] [place] [facility] [address] [id number], [place] [address]284 18 Jan, 2013 [facility] [place] [facility] [address] [id number], [place] [address] 15 Jan, 2013 [facility] [place] [facility] [address] [id number], [place] [address] 1646 15 Jan, 2013 [facility] [place] [facility] [address] [id number], [place] [address] 9[address] Jan, [facility] [place] [facility] [address] [id number] [place] [address]- 5848 27 Dec, 2012 [facility] [place] [facility] [address] [id number] [place] [address]- 7449 18 Dec, 2012 [facility] [place] [facility] [address] [id number] [place] [address] 2546 17 Dec, 2012 [facility] [place] [facility] [address] [id number] [place] [address] 9479 11 Dec, 2012 [facility] [place] [facility] [address] [id number] [place] [address] 2540 05 Dec, 2012 [facility] [place] [facility] [address] [id number] [place] [address]- 2378 Nov, [facility] [place] [facility] [address] [id number] [place] [address]- 7586 Nov, [facility] [place] [facility] [address] [id number] [place] [address]- 6617 Oct, [facility] [place] [facility] [address] [id number] [place] [address]- 8019 Oct, [facility] [place] [facility] [address] [id number] [place] [address]- 4083 Oct, [facility] [place] [facility] [address] [id number] [place] [address]- 3645 Oct, [facility] [place] [facility] [address] [id number] [place] [address] 8448 Oct, [facility] [place] [facility] [address] [id number] [place] [address]- 9025 05 Oct, 2012 [facility] [place] [facility] [address] [id number] [place] [address] 4138 Sep, [facility] [place] [facility] [address] [id number] [place] [address]- 4386 24 Sep, 2012 [facility] [place] [facility] [address] [id number] [place] [address]- 3657 Sep, [facility] [place] [facility] [address] [id number] [place] [address]- 8722 17 Sep, 2012 [facility] [address] [id number] [place] [address]- 0221 Sep, [facility] [address] [id number] [place] [address]- 2035 Sep, [facility] [address] [id number] [place] [address]- 2352 Sep, [facility] [address] [id number] [place] [address] 3507 August, [facility] [address] [id number] [place] [address]- 7048 August, [facility] [address] [id number] [place] [address] 7183 August, [facility] [address] [id number] [place] [address] 7014 August, [facility] [address] [id number] [place] [address] 1993 August, [facility] [address] [id number] [place] [address]- 0189 August, [facility] [address] [id number] [place] [address]- 0587 Jul, [facility] [address] [id number] [place] [address]- 5821 Jul, [facility] [address] [id number] [place] [address]- 0133 Jul, [facility] [place] [facility] [address] [id number] [place] [address]- 6954 Jul, [facility] [address] [id number] [place] [address]- 2455 Jul, [facility] [address] [id number], [place] [address] 9307 Jul, [facility] [address] [id number] [place] [address]- 0913 Jun, [facility] [address] [id number] [place] [address]- 4558 Jun, [facility] [address] [facility] [id number] [place] [address]- 8790 Jun, [facility] [address] [id number] [place] [address]- 0628 Jun, [facility] [address] [id number] [place] [address]- 8938 Jun, [facility] [address] [id number] [place] [address]- 7417 Jun, [facility] [address] [facility] [id number] [place] [address]- 0851 May, [facility] [place] [facility] [address] [id number] [place] [address] 1926 May, [facility] [address] [id number] [place] [address]- 8807 May, [facility] [address] [facility] [id number] [place] [address]- 6261 May, [facility] [address] [id number] [place] [address]- 4140 Apr, [facility] [place] [facility] [address] [id number], [place] [address] 8462 Apr, [facility] [place] [facility] [address] [id number] [place] [address]- 8634 Apr, [facility] [place] [facility] [address] [id number] [place] [address]- 9154 Apr, [facility] [place] [facility] [address] [facility] [id number], [place] [address]- 2207 Apr, [facility] [place] [facility] [address] [id number] [place] [address]- 0343 Apr, [facility] [place] [facility] [address] [id number] [place] [address]- 8883 Apr, [facility] [place] [facility] [address] [id number] [place] [address]- 9703 Apr, [facility] [place] [facility] [address] [id number] [place] [address]- 2955 Apr, [facility] [place] [facility] [address] [id number] [place] [address]- 7862 Mar, [facility] [place] [facility] [address] [id number] [place] [address]- 8182 Mar, [facility] [place] [facility] [address] [id number] [place] [address]- 4725 Mar, [facility] [place] [facility] [address] [id number] [place] [address]- 0527 Mar, [facility] [address] [id number] [place] [address]- 0353 Mar, [facility] [place] [facility] [address] [id number] [place] [address]- 3264 Mar, [facility] [place] [facility] [address] [id number] [place] [address]- 7518 Mar, [facility] [place] [facility] [address] [id number] [place] [address]- 2330 Mar, [facility] [place] [facility] [address] [id number] [place] [address]- 2314 Mar, [facility] [place] [facility] [address] [id number] [place] [address]- 4616 Mar, [facility] [place] [facility] [address] [id number] [place] [address]- 5733 Feb, [facility] [place] [facility] [address] [id number] [place] [address]- 5917 Feb, [facility] [place] [facility] [address] [id number] [place] [address]- 8444 Feb, [facility] [place] [facility] [address] [id number], [place] [address]- 8146 Feb, [facility] [place] [facility] [address] [facility] [id number] [place] [address] 1946 Feb, [facility] [place] [facility] [address] [id number], [place] [address]- 8500 15 Feb, 2012 [facility] [place] [facility] [address] [id number] [place] [address]- 3981 14 Feb, 2012 [facility] [place] [facility] [address] [id number], [place] [address]- 7131 Jan, [facility] [place] [facility] [address] [id number] [place] [address]- 8869 Jan, [facility] [place] [facility] [address] [id number], [place] [address]- 1997 Jan, [facility] [place] [facility] [address] [id number], [place] [address]- 2340 Jan, [facility] [place] [facility] [address] [facility] [id number], [place] [address]- 3239 Jan, [facility] [place] [facility] [address] [id number], [place] [address]- 7853 29 Jan, 2012 [facility] [place] [facility] [address] [id number], [place] [address]- 8872 Jan, [facility] [place] [facility] [address] [id number], [place] [address]- 3013 18 Jan, 2012 [facility] [place] [facility] [address] [facility] [id number], [place] [address]- 2632 18 Jan, 2012 [facility] [place] [facility] [address] [facility] [id number], [place] [address]- 1158 17 Jan, 2012 [facility] [place] [facility] [address] [id number] [place] [address] 2546 27 Sep, 2011 [facility] [place] [facility] [address] [id number] [place] [address] 2546 20 Dec, 2011 [facility] [place] [facility] [address] [id number] [place] [address] 2546 17 Dec, 2011 [facility] [place] [facility] [address] [id number] [place] [address] 2546 06 Dec, 2011 [facility] [place] [facility] [address] [id number] [place] [address] 2546 05 Dec, 2011 [facility] [place] [facility] [address] [id number] [place] [address]- 9856 02 Dec, 2011 [facility] [place] [facility] [address] [id number] [place] [address]- 9036 30 Nov, 2011 [facility] [place] [facility] [address] [id number] [place] [address]- 7676 Nov, [facility] [place] [facility] [address] [id number] [place] [address]- 8003 Nov, [facility] [place] [facility] [address] [id number] [place] [address] 2542 Nov, [facility] [place] [facility] [address] [id number] [place] [address] 254 Oct, [facility] [place] [facility] [address] [id number] [place] [address] 2546 Oct, [facility] [place] [facility] [address] [id number] [place] [address] 2546 Oct, [facility] [place] [facility] [address] [id number] [place] [address] 2546 Oct, [facility] [place] [facility] [address] [id number] [place] [address] 2546 Oct, [facility] [place] [facility] [address] [id number] [place] [address] 2547 Oct, [facility] [place] [facility] [address] [id number] [place] [address]- 0996 Oct, [facility] [place] [facility] [address] [id number] [place] [address]- 2725 Oct, [facility] [place] [facility] [address] [id number] [place] [address]- 9730 Sep, [facility] [place] [facility] [address] [id number] [place] [address]- 8376 Sep, [facility] [address] [id number] [place] [address]- 5723 Sep, [facility] [place] [facility] [address] [id number] [place] [address]- 8526 Sep, [facility] [address] [id number] [place] [address]- 2274 August, [facility] [address] [id number] [place] [address]- 4844 August, [facility] [place] [facility] [address] [id number] [place] [address]- 0789 Jul, [facility] [place] [facility] [address] [id number] [place] [address]- 8845 Jun, [facility] [place] [facility] [address] [id number] [place] [address]- 0976 Jun, [facility] [place] [facility] [address] [id number] [place] [address]- 8988 Jun, [facility] [place] [facility] [address] [id number] [place] [address]- 5979 Jun, [facility] [place] [facility] [address] [id number] [place] [address]- 8394 Jun, [facility] [place] [facility] [address] [id number] [place] [address]- 3819 Jun, [facility] [place] [facility] [address] [id number] [place] [address]- 2546 Jun, [facility] [address] [facility] [id number] [place] [address]- 2546 Jun, [facility] [address] [facility] [id number], [place] [address]- 2546 May, [facility] [address] [facility] [id number], [place] [address]- 2546 May, [facility] [address] [facility] [id number], [place] [address]- 2546 Mar, IMMUNIZATIONS No Known Immunizations SOCIAL HISTORY Never Assessed REASON FOR VISIT Morphine and Hydrocodone due 09/24 PLAN OF CARE VITAL SIGNS MEDICATIONS Medication Instructions Dosage Frequency Start Date End Date Duration Status Hydrocodone-Acetaminophen 10-325 MG Orally every 4 hours 1 tablet 4h August 28 days Active MS Contin 60 mg Orally every 12 hrs 1 tablet 12h August, 28 days Active RESULTS No Results PROCEDURES [...] pneumonia 2012 Hospitalization History COPD exacerbation, acute bronchitis-[facility] 06/10/16
--- OUTSIDE RECORDS SUMMARY | 2018-06-11 16:10 | XMS REPORT ---
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 Name Role Phone SARA CONROY Unavailable PROBLEMS Type Condition ICD9-CM Code GHI14-EV Code Onset Dates Condition Status SNOMED Code Problem Chronic pain syndrome G89.4 Active 957316345 Problem Low serum testosterone E29.1 Active 257927328 Problem Back pain M54.9 Active 769848076 Problem Essential hypertension I10 Active 05848670 Problem Chronic obstructive pulmonary disease, unspecified J44.9 Active [id number] ALLERGIES No Information ENCOUNTERS Encounter Location Date Diagnosis [place] [address] 15702- 2138 Oct, Back pain M54.9 [place] [address] [place] [id number] [place] [address] 17277- 7765 Sep, Back pain M54.9 [place] [address] [place] [id number] [place] [address] 75422- 2827 August, Back pain M54.9 [place] [address] [place] [id number] [place] [address] 56008- 4123 Jul, Back pain M54.9 [place] [address] [place] [id number] [place] [address] 16160- 2070 Jul, Medicare annual wellness visit, initial Z00.00 ; Chronic obstructive pulmonary disease, unspecified J44.9 ; Back pain M54.9 ; Chronic pain syndrome G89.4 ; Essential hypertension I10 ; Low serum testosterone E29.1 ; Smoking history Z87.891 and Encounter for immunization Z23 [place] [address] [place] [id number] [place] [address] 66666- 7205 Jul, [place] [address] [place] [id number] [place] [address] 79130- 8676 Jun, Back pain M54.9 [facility] [address] [place] [id number] [place] [address] 10235- 7273 May, Back pain M54.9 [facility] [address] [place] [id number] [place] [address] 71179- 7170 May, Exposure to the flu Z20.828 [facility] [address] [place] [id number] [place] [address] 77568- 4505 May, Chronic pain syndrome G89.4 ; Back pain M54.9 and Chronic obstructive pulmonary disease, unspecified J44.9 [facility] [address] [place] [id number] [place] [address] 01465- 7929 May, Back pain M54.9 [facility] [address] [place] [id number] [place] [address] 91395- 4255 Apr, Back pain M54.9 [facility] [address] [place] [id number] [place] [address] 10474- 2984 Mar, Back pain M54.9 [facility] [address] [place] [id number] [place] [address] 13518- 0066 Feb, Back pain M54.9 [facility] [address] [place] [id number] [place] [address] 22536- 7016 Jan, Back pain M54.9 [facility] [address] [place] [id number] [place] [address] 58961- 1135 Dec, Chronic obstructive pulmonary disease, unspecified J44.9 and Back pain M54.9 [facility] [address] [place] [id number] [place] [address] 90517- 5477 Dec, Back pain M54.9 [facility] [address] [place] [id number] [place] [address] 28743- 8703 Nov, Back pain M54.9 [facility] [address] [place] [address] [address] 4065 Oct, Essential hypertension I10 [facility] [address] [id number] [place] [address] 26381- 6890 Oct, Back pain M54.9 [facility] [address] [id number] [place] [address] 24298- 5388 Oct, [facility] [address] [place] [id number] [place] [address] 46497- 6950 Oct, [facility] [address] [place] [id number] [place] [address] 52329- 8656 Sep, Back pain M54.9 [facility] [address] [place] [id number] [place] [address] 25473- 1084 August, [facility] [address] [place] [id number] [place] [address] 17145- 3190 August, Essential hypertension I10 [facility] [address] [place] [id number] [place] [address] 41891- 2161 August, Other dorsalgia M54.89 [facility] [address] [place] [id number] [place] [address] 78318- 5056 August, Back pain M54.9 ; Chronic obstructive pulmonary disease, unspecified J44.9 and Low serum testosterone E29.1 [facility] [id number] [place] [address] 17880- 4838 Jul, Other dorsalgia M54.89 [facility] [id number] [place] [address] 38897- 3043 Jun, Dorsalgia, unspecified M54.9 [facility] [address] [place] [id number] [place] [address] 36576- 0948 Jun, Dorsalgia, unspecified M54.9 [facility] [address] [address]- 2543 Jun, [facility] [address] [place] [id number] [place] [address] 30295- 8761 Jun, Chronic obstructive pulmonary disease, unspecified J44.9 [facility] [address] [place] [id number] [place] [address] 85909- 1358 Jun, Back pain M54.9 [facility] [address] [place] [id number] [place] [address] 22104- 7076 May, Chronic obstructive pulmonary disease, unspecified J44.9 [facility] [address] [place] [id number] [place] [address] 02775- 0387 May, [facility] [address] [place] [id number] [place] [address] 42581- 7658 May, Other dorsalgia M54.89 [facility] [address] [place] [id number] [place] [address] 61114- 3001 Apr, [facility] [address] 88344- 0158 Apr, Other dorsalgia M54.89 [facility] [address] [place] [id number] [place] [address] 99580- 1969 Mar, Chronic obstructive pulmonary disease, unspecified J44.9 ; Essential hypertension I10 and Back pain M54.9 [facility] [address] [id number] [place] [address] 56186- 8018 Mar, [facility] [address] [id number] [place] [address] 17854- 9215 Mar, Dorsalgia, unspecified M54.9 [facility] [address] [id number] [place] [address] 82486- 1981 Mar, Edema R60.9 [facility] [address] [place] [id number] [place] [address] 63694- 8134 Feb, [facility] [address] [place] [id number] [place] [address] 82894- 4449 Feb, Other dorsalgia M54.89 [facility] [address] [place] [address]- 8358 Jan, Encounter for immunization Z23 and Chronic obstructive pulmonary disease, unspecified J44.9 [facility] [address] [place] [id number] [place] [address] 68857- 4207 Jan, [facility] [address] [place] [id number] [place] [address] 49410- 2945 14 Dec, 2015 [facility] [address] [place] [id number] [place] [address] 88722- 0625 13 Dec, 2015 [facility] [address] [place] [id number] [place] [address] 23979- 1175 Dec, Essential hypertension I10 and Back pain M54.9 [facility] [address] [place] [id number] [place] [address] 35734- 8483 Nov, [facility] [address] [place] [id number] [place] [address] 22914- 0875 Nov, [facility] [address] [place] [id number] [place] [address] 57763- 6317 Oct, Other dorsalgia M54.89 [facility] [address] [place] [id number] [place] [address] 77594- 7369 Oct, [facility] [address] [place] [id number] [place] [address] 85970- 9922 Sep, [facility] [address] [place] [id number] [place] [address] 89897- 1973 Sep, [facility] [id number] [place] [address] 82643 2548 Sep, [facility] [address] [place] [id number] [place] [address] 49056- 6436 August, [facility] [address] [id number] [place] [address] 54024- 1519 August, Other dorsalgia M54.89 [facility] [address] [id number] [place] [address] 60734- 7999 August, [facility] [address] [place] [id number] [place] [address] 59731- 8985 August, Chronic obstructive pulmonary disease, unspecified J44.9 and Back pain M54.9 [facility] [address] [place] [id number] [place] [address] 50694- 9851 August, [facility] [address] [id number] [place] [address] 33493- 5637 August, [facility] [address] [place] [id number] [place] [address] 18821- 5260 August, Chronic obstructive pulmonary disease, unspecified J44.9 [facility] [address] [place] [id number] [place] [address] 92165- 8985 Jul, Other dorsalgia M54.89 [facility] [address] [place] [id number] [place] [address] 23279- 9465 Jul, Insomnia G47.00 [facility] [address] [place] [id number] [place] [address] 20831- 8796 Jun, Other dorsalgia M54.89 [facility] [address] [place] [id number] [place] [address] 61096- 0019 Jun, Other dorsalgia M54.89 [facility] [address] [place] [id number] [place] [address] 52139- 5538 May, COPD (chronic obstructive pulmonary disease) J44.9 and Bronchitis J40 [facility] [id number] [place] [address] 87094- 2561 May, Chronic obstructive pulmonary disease, unspecified J44.9 [facility] [address] [place] [id number] [place] [address] 71981- 9094 May, [facility] [address] [id number] [place] [address] 02702- 4091 May, Other dorsalgia M54.89 [facility] [address] [place] [id number] [address]- 9163 Apr, Chronic obstructive pulmonary disease, unspecified J44.9 [facility] [address] [place] [id number] [place] [address] 57972- 7577 Apr, [facility] [address] [place] [id number] [place] [address] 26691- 4646 Mar, [facility] [address] [place] [id number] [place] [address] 64543- 0840 Mar, COPD (chronic obstructive pulmonary disease) J44.9 ; Back pain M54.9 and Edema R60.9 [facility] [address] [place] [id number] [place] [address] 44709- 1198 Mar, [facility] [address] [place] [id number] [place] [address] 94723- 5386 Mar, [facility] [address] [id number] [place] [address] 68531- 0141 Feb, [facility] [address] [id number] [place] [address] 80312- 4022 Feb, [facility] [address] [id number] [place] [address] 33899- 6997 Feb, [facility] [address] [id number] [place] [address] 79893- 4680 Jan, [facility] [address] [id number] [place] [address] 80239- 7012 Jan, [facility] [address] [id number] [place] [address] 12253- 8810 Jan, [facility] [address] [id number] [place] [address] 21915- 2165 Dec, Chronic airway obstruction, not elsewhere classified 496 ; Back pain 724.5 ; Flu vaccine need V04.81 and Prophylactic vaccination against streptococcus pneumoniae and influenza V06.6 [facility] [address] [id number] [place] [address] 92070- 2859 Dec, [facility] [address] [facility] [id number] [place] 7208 Dec, [facility] [address] [facility] [id number] [place] [address]- 9319 Dec, [facility] [address] [facility] [id number] [place] [address]- 3239 Nov, [facility] [address] [facility] [id number] [place] [address]- 6029 Nov, [facility] [address] [facility] [id number] [place]- 2187 Nov, [facility] [address] [facility] [id number] [place] [address]- 2793 Oct, [facility] [address] [place] [id number] [place] [address]- 6281 Oct, [facility] [address] [place] [id number] [place] [address]- 8599 Oct, Unspecified arthropathy, 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 and Chronic airway obstruction, not elsewhere classified 496 [facility] [id number] [place] [address]- 3393 Oct, [facility] [address] [place] [id number] 1515 Sep, [facility] [address] [place] [id number] [place] [address]- 5592 Sep, [facility] [address] [facility] [id number] [place] [address]- 0580 Sep, [facility] [address] [place] [id number] [place] [address]- 9586 August, [facility] [address] [facility] [id number] [place] [address]- 0622 August, [facility] [address] [place] [id number] [place] [address]- 5868 August, [facility] [place] [facility] [address] [id number] [place] [address]- 9878 August, [facility] [place] [facility] [address] [id number] [place] [address]- 6797 August, [facility] [place] [facility] [address] [id number] [place] [address]- 8508 Jul, [facility] [place] [facility] [address] [id number] [place] [address]- 8440 Jul, [facility] [place] [facility] [address] [id number] [place] [address]- 9529 Jun, [facility] [place] [facility] [address] [id number] [place] [address]- 0795 Jun, [facility] [place] [facility] [address] [id number] [place] [address]- 6228 Jun, [facility] [place] [facility] [address] [id number] [place] [address]- 5904 Jun, [facility] [place] [facility] [address] [id number] [place] [address]- 6868 Jun, [facility] [place] [facility] [address] [id number] [place] [address]- 6184 Jun, [facility] [place] [facility] [address] [id number] [place] [address]- 2223 May, [facility] [place] [facility] [address] [id number] [place] [address]- 6438 May, [facility] [place] [facility] [address] [id number] [place] [address]- 7629 May, [facility] [place] [facility] [address] [id number] [place] 5465 May, [facility] [place] [facility] [address] [id number] [place] [address]- 2140 May, [facility] [place] [facility] [address] [id number] [place] [address]- 4646 Apr, [facility] [address] [id number] [place] [address]- 5569 Apr, [facility] [address] [id number] [place] [address]- 5107 Apr, [facility] [address] [id number] [place] [address]- 8344 Apr, [facility] [address] [id number] [place] [address]- 2010 Apr, [facility] [address] [id number] [place] [address]- 8396 Apr, [facility] [address] [id number] [place] [address]- 6222 Apr, [facility] [address] [id number] [place] [address]- 6439 Mar, [facility] [address] [id number] [place] [address]- 2238 Mar, [facility] [address] [id number] [place] [address]- 0658 Mar, [facility] [address] [id number] [place] [address]- 6319 Mar, [facility] [address] [id number] [place] [address]- 6498 Mar, [facility] [address] [id number] [place] [address]- 7407 Mar, [facility] [place] [facility] [address] [id number] [place] [address]- 8626 Mar, [facility] [place] [facility] [address] [id number] [place] [address]- 4187 Mar, [facility] [place] [facility] [address] [id number] [place] [address]- 0222 Mar, [facility] [place] [facility] [address] [id number] [place] [address]- 5579 Mar, [facility] [place] [facility] [address] [id number] [place] [address]- 2647 Feb, [facility] [place] [facility] [address] [id number] [place] 2394 Feb, [facility] [place] [facility] [address] [id number] [place] [address]- 7274 Jan, [facility] [place] [facility] [address] [id number] [place] [address]- 1662 Jan, [facility] [place] [facility] [address] [id number] [place] [address]- 9223 Jan, [facility] [place] [facility] [address] [id number] [place] [address]- 3812 14 Jan, 2014 [facility] [place] [facility] [address] [id number] [place] [address]- 0675 14 Jan, 2014 [facility] [place] [facility] [address] [id number] [place] [address]- 4635 Jan, [facility] [place] [facility] [address] [id number] [address]- 5993 Jan, [facility] [place] [facility] [address] [id number] [address]- 7308 Jan, [facility] [place] [facility] [address] [id number] [place] [address]- 4392 Jan, [facility] [place] [facility] [address] [id number] [place] [address]- 2863 Jan, [facility] [place] [facility] [address] [id number] [address]- 0591 Jan, [facility] [place] [facility] [address] [id number] [place] 1159 Jan, [facility] [place] [facility] [address] [id number] [address]- 7182 Dec, [facility] [place] [facility] [address] [id number] [place] [address]- 9336 Dec, [facility] [place] [facility] [address] [id number] [place] [address]- 5634 Dec, [facility] [place] [facility] [address] [id number] [place] [address]- 1387 Dec, [facility] [place] [facility] [address] [id number] [place] [address]- 0874 Dec, [facility] [place] [facility] [address] [id number] [place] [address]- 4694 Nov, [facility] [place] [facility] [address] [id number] [place] [address]- 5408 Nov, [facility] [place] [facility] [address] [id number] [place] [address]- 6128 Nov, [facility] [place] [facility] [address] [id number] [place] [address]- 5084 Nov, [facility] [place] [facility] [address] [id number] [place] [address]- 6838 Oct, [facility] [place] [facility] [address] [id number] [place] [address]- 3396 Oct, [facility] [place] [facility] [address] [id number] [place] [address]- 9165 Oct, [facility] [place] [facility] [address] [id number] [place] [address]- 9644 Oct, [facility] [place] [facility] [address] [id number] [place] [address]- 8405 Oct, [facility] [place] [facility] [address] [id number] [place] [address]- 3477 Oct, [facility] [place] [facility] [address] [id number] [place] [address] Oct, [facility] [place] [facility] [address] [id number] [place] [address] Oct, [facility] [place] [facility] [address] [id number] [place] [address] Oct, [facility] [place] [facility] [address] [id number] [place] [address] Oct, [facility] [place] [facility] [address] [id number] [place] [address] Sep, [facility] [place] [facility] [address] [id number] [place] [address] Sep, [facility] [place] [facility] [address] [id number] [place] [address] Sep, [facility] [place] [facility] [address] [id number] [place] [address] Sep, [facility] [place] [facility] [address] [id number] [place] [address] Sep, [facility] [place] [facility] [address] [id number] [place] [address] Sep, [facility] [place] [facility] [address] [id number] [place] [address] August, [facility] [place] [facility] [address] [id number] [place] [address] August, [facility] [place] [facility] [address] [id number] [place] [address] August, [facility] [place] [facility] [address] [id number] [place] [address] August, [facility] [place] [facility] [address] [id number] [place] [address] August, [facility] [place] [facility] [address] [id number] [place] [address] August, [facility] [place] [facility] [address] [id number] [place] [address] Jul, [facility] [place] [facility] [address] [id number] [place] [address] Jul, [facility] [place] [facility] [address] [id number] [place] [address] Jul, [facility] [place] [facility] [address] [id number] [place] [address] Jul, [facility] [place] [facility] [address] [id number] [place] [address] Jul, [facility] [place] [facility] [address] [id number] [place] [address] Jul, [facility] [place] [facility] [address] [id number] [place] [address] Jul, [facility] [place] [facility] [address] [id number] [place] [address] Jul, [facility] [place] [facility] [address] [id number] [place] [address] Jul, [facility] [place] [facility] [address] [id number] [place] [address] Jun, [facility] [place] [facility] [address] [id number] [place] [address] Jun, [facility] [place] [facility] [address] [id number] [place] [address] Jun, [facility] [place] [facility] [address] [id number] [place] [address] May, [facility] [place] [facility] [address] [id number] [place] [address] May, [facility] [place] [facility] [address] [id number] [place] [address] May, [facility] [place] [facility] [address] [id number] [place] [address] May, [facility] [place] [facility] [address] [id number] [place] [address] May, [facility] [address] [id number] [place] [address] May, [facility] [address] [id number] [place] [address] Apr, [facility] [address] [id number] [place] [address] Apr, [facility] [address] [id number] [place] [address] Apr, [facility] [address] [id number] [place] [address] Apr, [facility] [address] [id number] [place] [address] Apr, [facility] [address] [id number] [place] [address] Apr, [facility] [address] [id number] [place] [address] Apr, [facility] [address] [id number] [place] [address] Apr, [facility] [address] [id number] [place] [address] Apr, [facility] [address] [id number] [place] [address] Apr, [facility] [address] [id number] [place] [address] Mar, [facility] [place] [facility] [address] [id number] [place] [address] Mar, [facility] [place] [facility] [address] [id number] [place] [address] Mar, [facility] [place] [facility] [address] [id number] [place] [address] Mar, [facility] [address] [id number] [place] [address] Mar, [facility] [place] [facility] [address] [id number] [place] [address] Mar, [facility] [place] [facility] [address] [id number] [place] [address] Mar, [facility] [place] [facility] [address] [id number] [place] [address] Mar, [facility] [place] [facility] [address] [id number] [place] [address] 30[address] Mar, [facility] [place] [facility] [address] [id number] [place] [address] Mar, [facility] [place] [facility] [address] [id number] [place] [address] Mar, [facility] [place] [facility] [address] [id number] [address] Feb, [facility] [place] [facility] [address] [id number] [place] [address] 29 Feb, 2013 [facility] [place] [facility] [address] [id number] [place] [address] Feb, [facility] [place] [facility] [address] [id number] [address] Feb, [facility] [place] [facility] [address] [id number] [address] 1335 18 Feb, 2013 [facility] [place] [facility] [address] [id number] [place] [address] 2727 18 Feb, 2013 [facility] [place] [facility] [address] [id number] [address] 14 Feb, 2013 [facility] [place] [facility] [address] [id number] [place] [address] 14 Feb, 2013 [facility] [place] [facility] [address] [id number] [place] [address] 6828 Feb, [facility] [place] [facility] [address] [id number] [place] [address]37 Feb, [facility] [place] [facility] [address] [id number] [place] [address] 9282 Feb, [facility] [place] [facility] [address] [id number] [place] [address] 1975 Feb, [facility] [place] [facility] [address] [id number] [place] [address] Jan, [facility] [place] [facility] [address] [id number] [place] [address] Jan, [facility] [place] [facility] [address] [id number] [place] [address] 68[address] Jan, [facility] [place] [facility] [address] [id number] [place] [address]250 Jan, [facility] [place] [facility] [address] [id number] [place] [address] 02[address] Jan, [facility] [place] [facility] [address] [id number] [place] [address] 1552 Jan, [facility] [place] [facility] [address] [facility] [id number] [place] [address]- 4339 Jan, [facility] [place] [facility] [address] [id number] [place] [address]- 7999 15 Jan, 2013 [facility] [place] [facility] [address] [id number] [place] [address] 9206 Jan, [facility] [place] [facility] [address] [id number] [place] [address] 2137 27 Dec, 2012 [facility] [place] [facility] [address] [id number] [place] [address] 18 Dec, 2012 [facility] [place] [facility] [address] [facility] [id number] [place] [address] 4831 17 Dec, 2012 [facility] [place] [facility] [address] [id number] [place] [address] 9868 Dec, [facility] [place] [facility] [address] [id number] [place] [address]- 9769 Dec, [facility] [place] [facility] [address] [id number] [place] [address] 2718 Nov, [facility] [place] [facility] [address] [id number] [place] [address] 4253 Nov, [facility] [place] [facility] [address] [id number] [place] [address] 2887 Oct, [facility] [place] [facility] [address] [id number] [place] [address] 1411 Oct, [facility] [place] [facility] [address] [id number] [place] [address] 7614 Oct, [facility] [place] [facility] [address] [id number] [place] [address] 6299 Oct, [facility] [place] [facility] [address] [id number] [place] [address] 45[address] Oct, [facility] [place] [facility] [address] [id number] [place] [address] 8804 Oct, [facility] [place] [facility] [address] [id number] [place] [address] 6918 Sep, [facility] [place] [facility] [address] [id number] [place] [address] 8619 24 Sep, 2012 [facility] [place] [facility] [address] [id number] [place] [address] 0705 18 Sep, 2012 [facility] [place] [facility] [address] [id number] [place] [address]- 9088 17 Sep, 2012 [facility] [place] [facility] [address] [id number] [place] [address]- 8686 14 Sep, 2012 [facility] [place] [facility] [address] [id number] [place] [address]- 0760 Sep, [facility] [address] [id number] [place] [address]- 7129 Sep, [facility] [address] [id number] [place] [address]- 8686 August, [facility] [address] [id number] [place] [address]- 6866 August, [facility] [address] [id number] [place] [address] 9196 August, [facility] [address] [id number] [place] [address]- 5848 August, [facility] [address] [id number] [place] [address]- 4576 August, [facility] [address] [id number] [place] [address] 1126 August, [facility] [address] [id number] [place] [address]- 9430 Jul, [facility] [address] [id number] [place] [address]- 0058 Jul, [facility] [place] [facility] [address] [id number] [place] [address]- 6096 Jul, [facility] [address] [id number] [place] [address]- 5996 Jul, [facility] [place] [facility] [address] [id number] [place] [address] 0230 08 Jul, 2012 [facility] [place] [facility] [address] [id number] [place] [address]- 8211 Jul, [facility] [place] [facility] [address] [id number] [place] [address]- 6060 Jun, [facility] [place] [facility] [address] [id number] [place] [address]- 2546 Jun, [facility] [place] [facility] [address] [id number] [place] [address]- 4943 Jun, [facility] [address] [id number] [place] [address] 5702 Jun, [facility] [place] [facility] [address] [id number] [place] [address]- 2016 Jun, [facility] [address] [id number] [place] [address]- 7431 Jun, [facility] [place] [facility] [address] [id number] [place] [address] 9892 May, [facility] [address] [id number] [place] [address]- 0196 May, [facility] [place] [facility] [address] [id number] [place] [address]- 9821 May, [facility] [address] [id number] [place] [address]- 8733 May, [facility] [address] [id number] [place] [address]- 0082 Apr, [facility] [place] [facility] [address] [id number] [place] [address]- 0602 Apr, [facility] [address] [id number] [place] [address]- 3441 Apr, [facility] [place] [facility] [address] [id number] [place] [address]- 3738 Apr, [facility] [place] [facility] [address] [id number] [place] [address]- 9086 Apr, [facility] [place] [facility] [address] [id number] [place] [address]- 5816 Apr, [facility] [place] [facility] [address] [id number] [place] [address]- 2176 Apr, [facility] [place] [facility] [address] [id number] [place] [address]- 6186 Apr, [facility] [address] [id number] [place] [address]- 6911 Apr, [facility] [place] [facility] [address] [id number] [place] [address]- 4498 Mar, [facility] [place] [facility] [address] [id number] [place] [address] Mar, [facility] [place] [facility] [address] [id number] [place] [address]- 3564 Mar, [facility] [place] [facility] [address] [id number] [place] [address]- 4676 Mar, [facility] [place] [facility] [address] [id number] [place] [address]- 5661 Mar, [facility] [place] [facility] [address] [id number] [place] [address]- 4919 Mar, [facility] [place] [facility] [address] [id number] [place] [address]- 1663 Mar, [facility] [place] [facility] [address] [id number] [place] [address]- 1708 Mar, [facility] [place] [facility] [address] [id number] [place] [address]- 7674 Mar, [facility] [place] [facility] [address] [id number] [place] [address]- 6276 Mar, [facility] [place] [facility] [address] [id number] [address]- 6711 Feb, [facility] [place] [facility] [address] [id number] [place] [address]- 9431 Feb, [facility] [place] [facility] [address] [id number] [place] [address]- 6143 Feb, [facility] [place] [facility] [address] [id number] [place] [address]- 6418 Feb, [facility] [place] [facility] [address] [id number] [place] [address]- 7761 15 Feb, 2012 [facility] [place] [facility] [address] [id number] [place] [address]- 1931 15 Feb, 2012 [facility] [place] [facility] [address] [id number] [place] [address]- 9232 14 Feb, 2012 [facility] [place] [facility] [address] [facility] [id number] [place] [address]- 1498 29 Jan, 2012 [facility] [place] [facility] [address] [id number] [place] [address]- 4814 29 Jan, 2012 [facility] [place] [facility] [address] [id number] [place] [address]- 0442 29 Jan, 2012 [facility] [place] [facility] [address] [id number] [place] [address]- 2495 29 Jan, 2012 [facility] [place] [facility] [address] [facility] [id number] [place] [address]- 0680 29 Jan, 2012 [facility] [place] [facility] [address] [id number] [place] [address]- 2075 29 Jan, 2012 [facility] [place] [facility] [address] [facility] [id number] [place] [address]- 7658 25 Jan, 2012 [facility] [place] [facility] [address] [facility] [id number] [place] [address]- 5320 18 Jan, 2012 [facility] [place] [facility] [address] [facility] [id number] [place] [address]- 0262 18 Jan, 2012 [facility] [place] [facility] [address] [facility] [id number] [place] [address]- 7188 17 Jan, 2012 [facility] [place] [facility] [address] [id number] [place] [address]- 2587 27 Dec, 2011 [facility] [place] [facility] [address] [facility] [id number] [place] [address]- 4617 20 Dec, 2011 [facility] [place] [facility] [address] [facility] [id number] [place] [address]- 8780 17 Dec, 2011 [facility] [place] [facility] [address] [id number] [place] [address]- 1348 Dec, [facility] [place] [facility] [address] [id number] [place] [address]- 6856 Dec, [facility] [place] [facility] [address] [id number] [place] [address]- 8286 Dec, [facility] [place] [facility] [address] [id number] [place] [address]- 9011 Nov, [facility] [place] [facility] [address] [id number] [place] [address]- 0181 Nov, [facility] [place] [facility] [address] [id number] [place] [address]- 2840 Nov, [facility] [place] [facility] [address] [id number] [place] [address]- 9944 Nov, [facility] [place] [facility] [address] [id number] [place] [address]- 4583 Oct, [facility] [place] [facility] [address] [id number] [place] [address]- 9031 Oct, [facility] [place] [facility] [address] [id number] [place] [address]- 9527 Oct, [facility] [place] [facility] [address] [id number] [place] [address]- 4943 Oct, [facility] [place] [facility] [address] [id number] [place] [address]- 1008 Oct, [facility] [place] [facility] [address] [id number] [place] [address]- 3489 Oct, [facility] [place] [facility] [address] [id number] [place] [address]- 9338 Oct, [facility] [place] [facility] [address] [id number] [place] [address]- 3793 Oct, [facility] [place] [facility] [address] [id number] [place] [address]- 0502 Sep, [facility] [place] [facility] [address] [id number] [place] [address]- 8412 Sep, [facility] [place] [facility] [address] [id number] [place] [address]- 0916 Sep, [facility] [place] [facility] [address] [id number] [place] [address]- 3378 Sep, [facility] [place] [facility] [address] [id number] [place] [address]- 3408 August, [facility] [place] [facility] [address] [id number] [place] [address]- 2160 August, [facility] [place] [facility] [address] [id number] [place] [address]- 0408 Jul, [facility] [place] [facility] [address] [id number] [place] [address]- 8139 Jun, [facility] [place] [facility] [address] [id number] [place] [address]- 8459 29 Jun, 2011 [facility] [place] [facility] [address] [id number] [place] [address]- 1768 Jun, [facility] [place] [facility] [address] [id number] [place] [address]- 2259 Jun, [facility] [place] [facility] [address] [id number] [place] [address]- 7400 Jun, [facility] [place] [facility] [address] [id number] [place] [address]- 7340 Jun, [facility] [place] [facility] [address] [id number] [place] [address]- 4330 20 Jun, 2011 [facility] [place] [facility] [address] [id number] [place] [address]- 0600 16 Jun, 2011 [facility] [place] [facility] [address] [id number] [place] [address]- 0857 24 May, 2011 [facility] [place] [facility] [address] [facility] [id number] [place] [address]- 8681 May, [facility] [address] [facility] [id number] [place] [address] Mar, IMMUNIZATIONS No Known Immunizations SOCIAL HISTORY Never Assessed REASON FOR VISIT MS COntin and Hydrocodone 08/27 PLAN OF CARE VITAL SIGNS MEDICATIONS Medication Instructions Dosage Frequency Start Date End Date Duration Status Hydrocodone-Acetaminophen 10-325 MG Orally every 4 hours 1 tablet 4h Jul 28 days Active MS Contin 60 mg Orally every 12 hrs 1 tablet 12h Jul, 28 days Active RESULTS No Results PROCEDURES [...]
--- OUTSIDE RECORDS SUMMARY | 2018-06-11 16:11 | XMS REPORT ---
Author Author SARA CONROY Organization [facility] Address [address] [place] [address] Care Team Providers Care Director Of Athletics Name Role Phone SARA CONROY Unavailable PROBLEMS Type Condition ICD9-CM Code POZ69-IN Code Onset Dates Condition Status SNOMED Code Problem Chronic pain syndrome G89.4 Active 547312391 Problem Low serum testosterone E29.1 Active 786300102 Problem Back pain M54.9 Active 790166618 Problem Essential hypertension I10 Active 47930059 Problem Chronic obstructive pulmonary disease, unspecified J44.9 Active 74897037 ALLERGIES Substance Reaction Event Type Date Status Tramadol HCl itching Drug Allergy Jul, Active Soma Makes pt mean Drug Allergy Jul, Active Boniva rash Drug Allergy Jul, Active Fentanyl Patches Unknown Non Drug Allergy Jul, Active ENCOUNTERS Encounter Location Date Diagnosis [facility] [id number] [place] [address] 78898- 8636 Oct, Back pain M54.9 [facility] [id number] [place] [address] 85547- 0839 Sep, Back pain M54.9 [facility] [id number] [place] [address] 68282- 8875 August, Back pain M54.9 [facility] [id number] [place] [address] 97375- 4620 Jul, Back pain M54.9 [facility] [id number] [place] [address] 89409- 7237 Jul, Medicare annual wellness visit, initial Z00.00 ; Chronic obstructive pulmonary disease, unspecified J44.9 ; Back pain M54.9 ; Chronic pain syndrome G89.4 ; Essential hypertension I10 ; Low serum testosterone E29.1 ; Smoking history Z87.891 and Encounter for immunization Z23 [facility] [id number] [place] [address] 89505- 3931 Jul, [facility] [address] 53006- 2916 Jun, Back pain M54.9 [facility] [address] 16837- 5442 May, Back pain M54.9 [facility] [address] 24958- 7200 May, Exposure to the flu Z20.828 [facility] [address] 02388- 9436 May, Chronic pain syndrome G89.4 ; Back pain M54.9 and Chronic obstructive pulmonary disease, unspecified J44.9 [facility] [address] 71548- 1597 May, Back pain M54.9 [facility] [id number] [place] [address] 90805- 2886 Apr, Back pain M54.9 [facility] [id number] [place] [address] 32429- 5733 Mar, Back pain M54.9 [facility] [id number] [place] [address] 57583- 5065 Feb, Back pain M54.9 [facility] [id number] [place] [address] 25517- 6574 Jan, Back pain M54.9 [facility] [id number] [place] [address] 59463- 4885 Dec, Chronic obstructive pulmonary disease, unspecified J44.9 and Back pain M54.9 [facility] [id number] [place] [address] 12333- 7603 18 Dec, 2016 Back pain M54.9 [facility] [address], [place] [address]- 4513 Nov, Back pain M54.9 [facility] [id number] [place] [address] 53785- 9961 Oct, Essential hypertension I10 [facility] [id number] [place] [address] 84035- 0417 Oct, Back pain M54.9 [facility] [id number] [place] [address] 06650- 6357 Oct, [facility] [id number] [place] [address] 67753- 8980 Oct, [facility] [id number] [place] [address] 69100- 4216 Sep, Back pain M54.9 [facility] [id number] [place] [address] 87679- 9667 August, [facility] [id number] [place] [address] 55087- 0819 August, Essential hypertension I10 [facility] [id number] [place] [address] 76151- 8447 August, Other dorsalgia M54.89 [facility] [id number] [place] [address] 80927- 8591 August, Back pain M54.9 ; Chronic obstructive pulmonary disease, unspecified J44.9 and Low serum testosterone E29.1 [facility] [id number] [place] [address] 47956- 0325 Jul, Other dorsalgia M54.89 [facility] [id number] [place] [address] 23311- 3815 Jun, Dorsalgia, unspecified M54.9 [facility] [address], [place] [address]- 3130 Jun, Dorsalgia, unspecified M54.9 [facility] [id number] [place] [address] 26562- 7517 Jun, [facility] [id number] [place] [address] 87304- 5216 Jun, Chronic obstructive pulmonary disease, unspecified J44.9 [facility] [id number] [place] [address] 02981- 4936 Jun, Back pain M54.9 [facility] [id number] [place] [address] 92393- 3436 May, Chronic obstructive pulmonary disease, unspecified J44.9 [facility] [address] 94720- 6086 May, [facility] [id number] [place] [address] 75952- 6524 May, Other dorsalgia M54.89 [facility] [id number] [place] [address] 12697- 9032 Apr, [facility] [id number] [place] [address] 74399- 2386 Apr, Other dorsalgia M54.89 [facility] [id number] [place] [address] 72005- 9642 Mar, Chronic obstructive pulmonary disease, unspecified J44.9 ; Essential hypertension I10 and Back pain M54.9 [facility] [id number] [place] [address] 01817- 1683 Mar, [facility] [id number] [place] [address] 00903 2546 Mar, Dorsalgia, unspecified M54.9 [facility] [id number] [place] [address] 44900- 1800 Mar, Edema R60.9 [facility] [id number] [place] [address] 68182- 7522 Feb, [facility] [address] [facility] [id number] [address]- 4187 Feb, Other dorsalgia M54.89 [facility] [id number] [place] [address] 53812- 3808 Jan, Encounter for immunization Z23 and Chronic obstructive pulmonary disease, unspecified J44.9 [facility] [id number] [place] [address] 61925- 2858 Jan, [facility] [id number] [place] [address] 40343- 5883 14 Dec, 2015 [facility] [id number] [place] [address] 60341- 3699 13 Dec, 2015 [facility] [id number] [place] [address] 64941- 7262 13 Dec, 2015 Essential hypertension I10 and Back pain M54.9 [facility] [id number] [place] [address] 73874- 1584 Nov, [facility] [id number] [place] [address] 62126- 6638 Nov, [facility] [id number] [place] [address] 50815- 4256 Oct, Other dorsalgia M54.89 [facility] [id number] [place] [address] 93390- 0643 Oct, [facility] [id number] [place] [address] 48777- 7589 Sep, [facility] [id number] [place] [address] 34461- 1971 Sep, [facility] [id number] [place] [address] 30513- 8874 Sep, [facility] [address], [place] [address]- 9050 August, [facility] [id number] [place] [address] 05563- 2749 August, Other dorsalgia M54.89 [facility] [id number] [place] [address] 02218- 8128 August, [facility] [id number] [place] [address] 21664- 3422 August, Chronic obstructive pulmonary disease, unspecified J44.9 and Back pain M54.9 [facility] [id number] [place] [address] 41626- 5833 August, [facility] [id number] [place] [address] 43660- 5689 August, [facility] [id number] [place] [address] 88505- 4779 August, Chronic obstructive pulmonary disease, unspecified J44.9 [facility] [id number] [place] [address] 67935- 1522 Jul, Other dorsalgia M54.89 [facility] [id number] [place] [address] 56023- 5561 Jul, Insomnia G47.00 [facility] [id number] [place] [address] 18280- 1161 Jun, Other dorsalgia M54.89 [facility] [id number] [place] [address] 81282- 1484 Jun, Other dorsalgia M54.89 [facility] [id number] [place] [address] 51721- 5279 May, COPD (chronic obstructive pulmonary disease) J44.9 and Bronchitis J40 [facility] [id number] [place] [address] 72547- 4647 May, Chronic obstructive pulmonary disease, unspecified J44.9 [facility] [id number] [place] [address] 21511- 8606 May, [facility] [id number] [place] [address] 73780- 9535 May, Other dorsalgia M54.89 [facility] [id number] [place] [address] 04487- 9408 Apr, Chronic obstructive pulmonary disease, unspecified J44.9 [facility] [id number] [place] [address] 19063 2548 Apr, [facility] [id number] [place] [address] 91410- 2900 Mar, [facility] [id number] [place] [address] 09714- 7042 Mar, COPD (chronic obstructive pulmonary disease) J44.9 ; Back pain M54.9 and Edema R60.9 [facility] [id number] [place] [address] 29457- 1931 Mar, [facility] [id number] [place] [address] 06728- 6217 Mar, [facility] [id number] [place] [address] 58077- 4784 Feb, [facility] [id number] [place] [address] 10671- 5317 Feb, [facility] [id number] [place] [address] 19874- 2303 Feb, [facility] [id number] [place] [address] 01589- 4566 Jan, [facility] [id number] [place] [address] 47167- 6510 Jan, [facility] [id number] [place] [address] 23197- 6586 Jan, [facility] [id number] [place] [address] 46405- 7452 Dec, Chronic airway obstruction, not elsewhere classified 496 ; Back pain 724.5 ; Flu vaccine need V04.81 and Prophylactic vaccination against streptococcus pneumoniae and influenza V06.6 [facility] [address], [place] [address]- 1075 Dec, [facility] [address] [facility] [id number], [place] [address]- 6261 Dec, [facility] [address], [place] [address]- 7009 Dec, [facility] [address] [facility] [id number], [place] [address]- 1900 Nov, [facility] [address], [place] [address]- 1853 Nov, [facility] [address], [place] [address]- 2041 Nov, [facility] [address], [place] [address]- 0595 Oct, [facility] [address], [place] [address]- 9307 Oct, [facility] [address], [place] [address]- 7640 Oct, Unspecified arthropathy, 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 and Chronic airway obstruction, not elsewhere classified 496 [facility] [id number], [place] [address]- 1106 Oct, [facility] [address], [place] [address]- 7931 Sep, [facility] [id number], [place] [address]- 4988 Sep, [facility] [address], [place] [address]- 4139 Sep, [facility] [id number], [place] [address]- 7413 August, [facility] [address] [place] [address]- 2576 August, [facility] [address] [id number] [place] [address]- 9284 August, [facility] [place] [facility] [address] [id number] [place] [address]- 9934 August, [facility] [address] [id number] [place] [address]- 1737 August, [facility] [place] [facility] [address] [id number] [place] [address]- 5215 Jul, [facility] [place] [facility] [address] [id number] [place] [address]- 3438 Jul, [facility] [place] [facility] [address] [facility] [id number] [place] [address]- 2175 Jun, [facility] [place] [facility] [address] [facility] [id number] [place] [address]- 7570 Jun, [facility] [place] [facility] [address] [id number] [place] [address]- 8770 Jun, [facility] [place] [facility] [address] [id number] [place] [address]- 5944 Jun, [facility] [place] [facility] [address] [facility] [id number] [place] [address]- 8745 Jun, [facility] [place] [facility] [address] [id number] [place] [address]- 3630 Jun, [facility] [place] [facility] [address] [id number] [place] [address]- 7020 May, [facility] [place] [facility] [address] [id number] [place] [address]- 4443 May, [facility] [place] [facility] [address] [facility] [id number] [place] [address]- 3806 May, [facility] [place] [facility] [address] [facility] [id number] [place] [address]- 2279 May, [facility] [place] [facility] [address] [id number] [place] [address]- 7331 May, [facility] [place] [facility] [address] [id number] [place] [address]- 1822 Apr, [facility] [place] [facility] [address] [id number] [place] [address]- 1513 Apr, [facility] [place] [facility] [address] [id number] [place] [address]- 3026 Apr, [facility] [place] [facility] [address] [id number] [place] [address]- 2732 Apr, [facility] [place] [facility] [address] [id number] [place] [address]- 2077 Apr, [facility] [place] [facility] [address] [id number] [place] [address]- 5875 Apr, [facility] [place] [facility] [address] [id number] [place] [address]- 4866 Apr, [facility] [place] [facility] [address] [id number] [place] [address]- 6843 Mar, [facility] [place] [facility] [address] [id number] [place] [address]- 5419 Mar, [facility] [place] [facility] [address] [id number] [place] [address]- 8959 Mar, [facility] [place] [facility] [address] [id number], [place] [address]- 9109 Mar, [facility] [place] [facility] [address] [id number] [place] [address]- 0061 Mar, [facility] [place] [facility] [address] [id number] [place] [address]- 1777 Mar, [facility] [place] [facility] [address] [id number] [place] [address]- 7593 Mar, [facility] [place] [facility] [address] [id number] [place] 7822 12 Mar, 2014 [facility] [place] [facility] [address] [id number] [place] 1023 02 Mar, 2014 [facility] [place] [facility] [address] [id number] [place] 6603 Mar, [facility] [place] [facility] [address] [id number] [place] [address]- 5171 Feb, [facility] [place] [facility] [address] [id number] [place] [address]- 5463 Feb, [facility] [place] [facility] [address] [id number] [place] [address]- 0665 Jan, [facility] [place] [facility] [address] [id number] [place] [address]- 6768 20 Jan, 2014 [facility] [place] [facility] [address] [id number] [place] [address]- 5022 14 Jan, 2014 [facility] [place] [facility] [address] [id number] [place] [address]- 8650 14 Jan, 2014 [facility] [place] [facility] [address] [id number] [place] [address]- 3662 14 Jan, 2014 [facility] [place] [facility] [address] [facility] [id number] [place] [address]- 6731 14 Jan, 2014 [facility] [place] [facility] [address] [id number] [place] [address]- 1406 13 Jan, 2014 [facility] [place] [facility] [address] [id number] [place] [address]- 5368 13 Jan, 2014 [facility] [place] [facility] [address] [id number] [place] [address]- 0788 09 Jan, 2014 [facility] [place] [facility] [address] [id number] [place] [address]- 9782 09 Jan, 2014 [facility] [place] [facility] [address] [id number] [place] 9970 Jan, [facility] [place] [facility] [address] [id number] [place] [address]- 5828 Jan, [facility] [place] [facility] [address] [id number] [place] [address]- 2849 Dec, [facility] [place] [facility] [address] [id number] [place] [address]- 0208 Dec, [facility] [place] [facility] [address] [id number] [place] [address]- 8790 Dec, [facility] [place] [facility] [address] [id number] [place] [address]- 4288 Dec, [facility] [place] [facility] [address] [id number] [place] [address]- 9137 Dec, [facility] [place] [facility] [address] [id number] [place] [address]- 2649 Nov, [facility] [place] [facility] [address] [id number] [place] [address]- 1971 Nov, [facility] [place] [facility] [address] [id number] [place] [address]- 4879 Nov, [facility] [place] [facility] [address] [id number] [place] [address]- 5662 Nov, [facility] [place] [facility] [address] [id number] [place] [address]- 0038 Oct, [facility] [place] [facility] [address] [id number] [place] [address]- 1665 Oct, [facility] [place] [facility] [address] [id number] [place] [address]- 6636 Oct, [facility] [place] [facility] [address] [id number] [place] [address]- 3487 Oct, [facility] [place] [facility] [address] [id number] [place] [address]- 2813 Oct, [facility] [place] [facility] [address] [id number] [place] [address]- 4306 Oct, [facility] [place] [facility] [address] [id number] [place] [address]- 9499 Oct, [facility] [place] [facility] [address] [id number] [place] 2352 Oct, [facility] [place] [facility] [address] [id number] [place] [address]- 2531 Oct, [facility] [place] [facility] [address] [id number] [place] [address]- 1028 Oct, [facility] [place] [facility] [address] [id number] [place] [address]- 2361 Sep, [facility] [place] [facility] [address] [id number] [place] [address]- 0148 Sep, [facility] [place] [facility] [address] [id number] [place] [address]- 2614 Sep, [facility] [place] [facility] [address] [id number] [place] [address]- 0803 Sep, [facility] [place] [facility] [address] [id number] [place] [address]- 2944 Sep, [facility] [place] [facility] [address] [id number] [place] [address] Sep, [facility] [place] [facility] [address] [id number] [place] [address] August, [facility] [place] [facility] [address] [id number] [place] [address] August, [facility] [place] [facility] [address] [id number] [place] [address] August, [facility] [place] [facility] [address] [id number] [place] [address] August, [facility] [place] [facility] [address] [id number] [place] [address] August, [facility] [place] [facility] [address] [id number] [place] [address] August, [facility] [address] [id number] [place] [address] Jul, [facility] [place] [facility] [address] [id number] [place] [address] Jul, [facility] [address] [id number] [place] [address] Jul, [facility] [place] [facility] [address] [id number] [place] [address] Jul, [facility] [place] [facility] [address] [id number] [place] [address] Jul, [facility] [place] [facility] [address] [id number] [place] [address] Jul, [facility] [place] [facility] [address] [id number] [place] [address] Jul, [facility] [address] [id number] [place] [address] Jul, [facility] [place] [facility] [address] [id number] [place] [address] Jul, [facility] [address] [id number] [place] [address] Jun, [facility] [place] [facility] [address] [id number] [place] [address] Jun, [facility] [place] [facility] [address] [id number] [place] [address] Jun, [facility] [place] [facility] [address] [id number] [place] [address] May, [facility] [place] [facility] [address] [id number] [place] [address] May, [facility] [place] [facility] [address] [id number] [place] [address] May, [facility] [place] [facility] [address] [id number] [place] [address] May, [facility] [place] [facility] [address] [id number] [place] [address] May, [facility] [place] [facility] [address] [id number] [place] [address] May, [facility] [place] [facility] [address] [id number] [place] [address] Apr, [facility] [place] [facility] [address] [id number] [place] [address] Apr, [facility] [place] [facility] [address] [id number] [place] [address] Apr, [facility] [place] [facility] [address] [id number] [place] [address] Apr, [facility] [place] [facility] [address] [id number] [place] [address] Apr, [facility] [place] [facility] [address] [id number] [place] [address] Apr, [facility] [place] [facility] [address] [id number] [place] [address] Apr, [facility] [place] [facility] [address] [id number] [place] [address] Apr, [facility] [place] [facility] [address] [id number] [place] [address] Apr, [facility] [place] [facility] [address] [id number] [place] [address] Apr, [facility] [place] [facility] [address] [id number] [place] [address] Mar, [facility] [place] [facility] [address] [id number] [place] [address] Mar, [facility] [place] [facility] [address] [id number] [place] [address] Mar, [facility] [address] [id number] [place] [address] Mar, [facility] [address] [id number] [place] [address] Mar, [facility] [address] [id number] [place] [address] Mar, [facility] [address] [id number] [place] [address] Mar, [facility] [address] [id number] [place] [address] Mar, [facility] [address] [id number] [place] [address] Mar, [facility] [address] [id number] [place] [address] Mar, [facility] [address] [id number] [place] [address] Mar, [facility] [address] [id number] [place] [address] 29 Feb, 2013 [facility] [address] [id number] [place] [address] 29 Feb, 2013 [facility] [address] [id number] [place] [address] 1010 18 Feb, 2013 [facility] [address] [id number] [place] [address] 5277 18 Feb, 2013 [facility] [place] [facility] [address] [id number] [place] [address] 26[address] 18 Feb, 2013 [facility] [place] [facility] [address] [id number] [place] [address] 0924 18 Feb, 2013 [facility] [address] [id number] [place] [address] 3985 14 Feb, 2013 [facility] [place] [facility] [address] [id number] [place] [address] 3326 14 Feb, 2013 [facility] [place] [facility] [address] [id number] [place] [address] 4958 Feb, [facility] [place] [facility] [address] [id number] [place] [address] Feb, [facility] [place] [facility] [address] [id number] [place] [address]197 Feb, [facility] [place] [facility] [address] [id number] [place] [address] Feb, [facility] [place] [facility] [address] [id number] [place] [address] 4755 Jan, [facility] [place] [facility] [address] [id number] [place] [address] 0640 Jan, [facility] [place] [facility] [address] [id number], [place] [address] Jan, [facility] [place] [facility] [address] [id number] [place] [address]- 5566 Jan, [facility] [place] [facility] [address] [id number][place] [address] 164[address] Jan, [facility] [place] [facility] [address] [id number], [place] [address] 8420 18 Jan, 2013 [facility] [place] [facility] [address] [id number], [place] [address] 8887 15 Jan, 2013 [facility] [place] [facility] [address] [id number], [place] [address] 0072 15 Jan, 2013 [facility] [place] [facility] [address] [id number], [place] [address]- 0065 Jan, [facility] [place] [facility] [address] [id number], [place] [address] 0969 27 Dec, 2012 [facility] [place] [facility] [address] [id number], [place] [address]57 18 Dec, 2012 [facility] [place] [facility] [address] [id number] [place] [address] 9684 17 Dec, 2012 [facility] [place] [facility] [address] [id number] [place] [address]- 7713 11 Dec, 2012 [facility] [place] [facility] [address] [id number] [place] [address]- 9046 05 Dec, 2012 [facility] [place] [facility] [address] [id number] [place] [address]- 7362 Nov, [facility] [place] [facility] [address] [id number] [place] [address]- 5363 Nov, [facility] [place] [facility] [address] [id number] [place] [address] 5820 Oct, [facility] [place] [facility] [address] [id number] [place] [address] 1761 Oct, [facility] [place] [facility] [address] [id number] [place] [address]- 6516 Oct, [facility] [place] [facility] [address] [id number] [place] [address]- 2812 Oct, [facility] [place] [facility] [address] [id number] [place] [address] 4341 Oct, [facility] [place] [facility] [address] [id number] [place] [address] 2843 Oct, [facility] [place] [facility] [address] [id number] [place] [address]- 0844 Sep, [facility] [place] [facility] [address] [id number] [place] [address] 5849 24 Sep, 2012 [facility] [place] [facility] [address] [id number] [place] [address] 6019 Sep, [facility] [place] [facility] [address] [id number] [place] [address]- 3524 Sep, [facility] [place] [facility] [address] [id number] [place] [address]- 0465 14 Sep, 2012 [facility] [address] [id number] [place] [address] 8350 10 Sep, 2012 [facility] [address] [id number] [place] [address] 2546 Sep, [facility] [address] [id number] [place] [address] 1259 August, [facility] [address] [id number] [place] [address]32 August, [facility] [address] [id number] [place] [address] 9101 August, [facility] [address] [id number] [place] [address] 2341 August, [facility] [address] [id number] [place] [address]- 4113 August, [facility] [address] [id number] [place] [address]- 1643 August, [facility] [address] [id number] [place] [address]- 1370 Jul, [facility] [address] [id number] [place] [address] 6570 Jul, [facility] [address] [id number] [place] [address]- 8816 Jul, [facility] [address] [id number] [place] [address] 8241 Jul, [facility] [address] [id number] [place] [address] 0403 Jul, [facility] [address] [id number] [place] [address]- 2356 Jul, [facility] [address] [id number] [place] [address]- 8617 Jun, [facility] [address] [id number] [place] [address]- 1719 Jun, [facility] [place] [facility] [address] [id number] [place] [address]- 0061 Jun, [facility] [place] [facility] [address] [id number] [place] [address]- 5889 Jun, [facility] [place] [facility] [address] [id number] [place] [address]- 6827 Jun, [facility] [place] [facility] [address] [id number] [place] [address]- 3718 Jun, [facility] [place] [facility] [address] [id number] [place] [address]- 6731 May, [facility] [place] [facility] [address] [id number] [place] [address]- 9367 May, [facility] [place] [facility] [address] [id number] [place] [address]- 4528 May, [facility] [place] [facility] [address] [id number] [place] [address]- 4185 May, [facility] [place] [facility] [address] [id number] [place] [address]- 5914 Apr, [facility] [place] [facility] [address] [id number] [place] [address]- 5003 Apr, [facility] [place] [facility] [address] [id number] [place] [address]- 4506 Apr, [facility] [place] [facility] [address] [id number] [place] [address]- 1476 Apr, [facility] [place] [facility] [address] [id number] [place] [address]- 0062 Apr, [facility] [place] [facility] [address] [id number] [place] [address]- 1780 Apr, [facility] [place] [facility] [address] [id number] [place] [address]- 6151 Apr, [facility] [address] [id number] [place] [address]- 9972 Apr, [facility] [address] [id number] [place] [address]- 0511 Apr, [facility] [address] [id number] [place] [address]- 9116 Mar, [facility] [address] [id number] [place] [address]- 3765 Mar, [facility] [address] [id number] [place] [address]- 7160 Mar, [facility] [address] [id number] [place] [address]- 3506 Mar, [facility] [address] [id number] [place] [address]- 0303 Mar, [facility] [address] [id number] [place] [address]- 4449 Mar, [facility] [address] [id number] [place] [address]- 8103 Mar, [facility] [address] [id number] [place] [address]- 2258 Mar, [facility] [address] [id number] [place] [address]- 4688 Mar, [facility] [address] [id number] [place] [address]- 1977 Mar, [facility] [address] [id number] [place] [address]- 0309 Feb, [facility] [address] [id number] [place] [address]- 1406 Feb, [facility] [address] [id number] [place] [address]- 8566 Feb, [facility] [place] [facility] [address] [id number] [place] [address]- 6369 Feb, [facility] [place] [facility] [address] [id number] [place] [address]- 8659 Feb, [facility] [place] [facility] [address] [id number] [place] [address]- 3212 15 Feb, 2012 [facility] [place] [facility] [address] [id number] [place] [address]- 9429 14 Feb, 2012 [facility] [place] [facility] [address] [id number] [place] [address]- 0865 Jan, [facility] [place] [facility] [address] [id number] [place] [address]- 0285 Jan, [facility] [place] [facility] [address] [facility] [id number] [place] [address]- 7518 Jan, [facility] [place] [facility] [address] [id number], [place] [address]- 9990 Jan, [facility] [place] [facility] [address] [id number] [place] [address]- 9148 Jan, [facility] [place] [facility] [address] [facility] [id number], [place] [address]- 1722 Jan, [facility] [place] [facility] [address] [facility] [id number], [place] [address]- 6847 Jan, [facility] [place] [facility] [address] [id number], [place] [address]- 5933 Jan, [facility] [place] [facility] [address] [id number], [place] [address]- 4347 18 Jan, 2012 [facility] [place] [facility] [address] [id number], [place] [address]- 7987 17 Jan, 2012 [facility] [place] [facility] [address] [facility] [id number][place]- 1634 27 Dec, 2011 [facility] [place] [facility] [address] [id number], [place] [address]- 7530 20 Dec, 2011 [facility] [place] [facility] [address] [id number] [place] [address]- 2446 17 Dec, 2011 [facility] [place] [facility] [address] [id number] [place] [address]- 8956 06 Dec, 2011 [facility] [place] [facility] [address] [id number] [place] [address]- 9566 05 Dec, 2011 [facility] [place] [facility] [address] [id number] [place] [address]- 1800 Dec, [facility] [place] [facility] [address] [id number] [place] [address]- 1500 Nov, [facility] [place] [facility] [address] [id number] [place] [address]- 4821 Nov, [facility] [place] [facility] [address] [id number] [place] [address]- 8476 Nov, [facility] [place] [facility] [address] [id number] [place] [address]- 3688 Nov, [facility] [place] [facility] [address] [id number] [place] [address]- 0759 Oct, [facility] [place] [facility] [address] [id number] [place] [address]- 0875 Oct, [facility] [place] [facility] [address] [id number] [place] [address]- 5614 Oct, [facility] [place] [facility] [address] [id number] [place] [address]- 4912 Oct, [facility] [place] [facility] [address] [id number] [place] [address]- 6829 Oct, [facility] [place] [facility] [address] [id number] [place] [address]- 3193 Oct, [facility] [place] [facility] [address] [id number] [place] [address]- 9640 Oct, [facility] [place] [facility] [address] [id number] [place] [address]- 9226 Oct, [facility] [place] [facility] [address] [id number] [place] [address]- 8674 Sep, [facility] [place] [facility] [address] [id number] [place] [address] 2546 Sep, [facility] [place] [facility] [address] [id number] [place] [address]- 3716 Sep, [facility] [place] [facility] [address] [id number] [place] [address] 2546 Sep, [facility] [place] [facility] [address] [id number] [place] [address]- 1771 August, [facility] [place] [facility] [address] [id number] [place] [address]- 6726 August, [facility] [place] [facility] [address] [id number] [place] [address]- 5470 Jul, [facility] [address] [id number] [place] [address]- 6886 31 Jun, 2011 [facility] [place] [facility] [address] [id number] [place] [address]- 8235 29 Jun, 2011 [facility] [place] [facility] [address] [id number] [place] [address] Jun, [facility] [place] [facility] [address] [id number] [place] [address]- 3787 26 Jun, 2011 [facility] [place] [facility] [address] [id number] [place] [address]- 0481 Jun, [facility] [place] [facility] [address] [id number] [place] [address]- 8856 22 Jun, 2011 [facility] [place] [facility] [address] [id number] [place] [address] 2546 20 Jun, 2011 [facility] [place] [facility] [address] [id number] [place] [address]- 2846 Jun, [facility] [address] [facility] [id number][place] [address] May, [facility] [address] [facility] [id number][place] [address]26 May, [facility] [address] [facility] [id number], [place] [address]- 0676 Mar, IMMUNIZATIONS Vaccine Route Administration Date Status TDAP (BOOSTRIX) IM Intramuscular August 13, 2017 Administered SOCIAL HISTORY Never Assessed REASON FOR VISIT Medicare AWV - Initial Visit WB-MA PLAN OF CARE Activity Details Follow Up 1 Year Reason:Subsequent-MAWV VITAL SIGNS Height 68 in 2017-08-13 Weight 204 lbs 2017-08-13 Temperature 98.2 degrees Fahrenheit 2017-08-13 Heart Rate 88 bpm 2017-08-13 Respiratory Rate 24 2017-08-13 BMI 31.01 kg/m2 2017-08-13 Blood pressure systolic 128 mmHg 2017-08-13 Blood pressure diastolic 76 mmHg 2017-08-13 MEDICATIONS Medication Instructions Dosage Frequency Start Date End Date Duration Status Zolpidem Tartrate 5 MG TAKE ONE TABLET BY MOUTH ONCE DAILY NEEDED 30 Active Singulair 10 MG Orally Once a day 1 tablet in the evening 24h Active Excedrin Migraine 250-250-65 MG Orally daily PRN 1 tablet Active Mucus Relief 400 MG TAKE ONE TABLET BY MOUTH EVERY 4 HOURS NEEDED WITH A FULL GLASS OF WATER 30 Active Colace 100 MG Orally Once a day 1 capsule as needed 24h Active Oxygen 6 inhalations all the time Active Baclofen 10 MG TAKE ONE TABLET BY MOUTH THREE TIMES DAILY NEEDED 30 Active Ventolin HFA 108 (90 Base) MCG/ACT INHALE TWO PUFFS BY MOUTH EVERY 4 HOURS NEEDED FOR SHORTNESS OF BREATH OR WHEEZE 17 Active Cetirizine HCl 10 mg Orally twice a day 1 tablet 12h Active Breo Ellipta 100-25 MCG/INH INHALE ONE PUFF BY MOUTH ONCE DAILY 30 Active Ibuprofen 200 mg Orally every 4 hrs 1 tablet as needed 4h Active Citalopram Hydrobromide 20 MG TAKE ONE TABLET BY MOUTH ONCE DAILY 30 Active Mens Multi Vitamin & Mineral Active Calcium Carbonate-Vitamin D 600-200 MG-UNIT Orally twice a day 1 tablet with food 12h Active MS Contin 60 mg Orally every 12 hrs 1 tablet 12h 02 Apr, 2018 28 days Active Omeprazole 20 MG TAKE ONE CAPSULE BY MOUTH ONCE DAILY 30 Active Klor-Con M10 10 MEQ Orally, with lasix Once a day, Prn 1 tablet with food 30 Active Glucosamine 1500 Complex - Orally Once a day 1 capsule 24h Active Lasix 20 mg Orally Once a day, PRN 1 tablet 30 Active Furosemide 20 MG TAKE ONE TABLET BY MOUTH ONCE DAILY NEEDED 30 Active Incruse Ellipta 62.5 MCG/INH INHALE ONE PUFF BY MOUTH ONCE DAILY 30 Active Turmeric 500 MG Orally 2 times a day 1 capsule 12h Active Hydrocodone-Acetaminophen 10-325 MG Orally every 4 hours 1 tablet 4h Jul 28 days Active Promethazine HCl 25 MG Orally every 12 hrs 1 tablet as needed 12h 30 Active Benazepril HCl 20 MG TAKE ONE TABLET BY MOUTH ONCE DAILY 90 Active RESULTS Name Result Date Reference Range CT Scan : Chest, low dose (Screening) 2017-08-20 PROCEDURES Procedure Date Ordered Result Body Site ANNUAL DEBBIE VST; PERSNL PPS INIT August 13, 2017 FALL RISK ASSESSMENT DOCD August 13, 2017 NEG SCR D PT NOT ELIG F/U/PLN DOC August 13, 2017 PT TOBACCO SCREEN RCVD TLK August 13, 2017 SINGLE IMMUNIZATION ADMIN August 13, 2017 TDAP (BOOSTRIX) August 13, 2017 INSTRUCTIONS MEDICATIONS ADMINISTERED No Known Medications MEDICAL [...] pneumonia 2012 Hospitalization History COPD exacerbation, acute bronchitis-[facility] 06/10/16
--- OUTSIDE RECORDS SUMMARY | 2018-06-11 16:12 | XMS REPORT ---
Author Author SARA CONROY [facility] Address [address] [place] [address] Care Team Providers Care Sole Skiver Name Role Phone SARA CONROY Unavailable PROBLEMS Type Condition ICD9-CM Code FSX72-DM Code Onset Dates Condition Status SNOMED Code Problem Chronic pain syndrome G89.4 Active 770592957 Problem Low serum testosterone E29.1 Active 070620784 Problem Back pain M54.9 Active 957657055 Problem Essential hypertension I10 Active 03130920 Problem Chronic obstructive pulmonary disease, unspecified J44.9 Active 46998289 ALLERGIES No Information ENCOUNTERS Encounter Location Date Diagnosis [place] [address] [address]- [address]30 Oct, Back pain M54.9 [place] [place] [id number] [place] [address] 19578- 7105 Sep, Back pain M54.9 [place] [address] [place] [id number] [place] [address] 08076- 7938 August, Back pain M54.9 [place] [address] [place] [id number] [place] [address] 05177- 3857 Jul, Back pain M54.9 [place] [address] [place] [id number] [place] [address] 87204- 4020 Jul, Medicare annual wellness visit, initial Z00.00 ; Chronic obstructive pulmonary disease, unspecified J44.9 ; Back pain M54.9 ; Chronic pain syndrome G89.4 ; Essential hypertension I10 ; Low serum testosterone E29.1 ; Smoking history Z87.891 and Encounter for immunization Z23 [place] [address] [place] [id number] [place] [address] 46565- 9991 Jul, [place] [address] [place] [id number] [place] [address] 57565- 3680 Jun, Back pain M54.9 [facility] [address] [place] [id number] [place] [address] 04183- 5759 May, Back pain M54.9 [facility] [address] [place] [id number] [place] [address] 68806- 4579 May, Exposure to the flu Z20.828 [facility] [address] [place] [address] [id number] [place] [address] 24847- 4821 May, Chronic pain syndrome G89.4 ; Back pain M54.9 and Chronic obstructive pulmonary disease, unspecified J44.9 [facility] [address] [place] [id number] [place] [address] 70119- 3416 May, Back pain M54.9 [facility] [address] [place] [id number] [place] [address] 06451- 8720 Apr, Back pain M54.9 [facility] [address] [place] [id number] [place] [address] 12507- 6968 Mar, Back pain M54.9 [facility] [address] [place] [id number] [place] [address] 56284- 9808 Feb, Back pain M54.9 [facility] [address] [place] [id number] [place] [address] 25391- 7807 Jan, Back pain M54.9 [facility] [address] [place] [id number] [place] [address] 04371- 9695 Dec, Chronic obstructive pulmonary disease, unspecified J44.9 and Back pain M54.9 [facility] [address] [place] [id number] [place] [address] 06723- 9455 Dec, Back pain M54.9 [facility] [address] [place] [id number] [place] [address] 56934- 1546 Nov, Back pain M54.9 [facility] [address] [place] [address] 2714 Oct, Essential hypertension I10 [facility] [address] [place] [id number] [place] [address] 80890- 9169 Oct, Back pain M54.9 [facility] [address] [place] [id number] [place] [address] 84548- 4174 Oct, [facility] [address] [place] [id number] [place] [address] 02276- 9644 Oct, [facility] [address] [place] [id number] [place] [address] 02121- 2368 Sep, Back pain M54.9 [facility] [address] [place] [id number] [place] [address] 39942- 4492 August, [facility] [address] [place] [id number] [place] [address] 18518- 2507 August, Essential hypertension I10 [facility] [address] [place] [id number] [place] [address] 03723- 3004 August, Other dorsalgia M54.89 [facility] [address] [place] [id number] [place] [address] 40091- 2638 August, Back pain M54.9 ; Chronic obstructive pulmonary disease, unspecified J44.9 and Low serum testosterone E29.1 [facility] [address] [place] [address] 69545- 0629 Jul, Other dorsalgia M54.89 [facility] [address] [place] [address] 11418- 4530 Jun, Dorsalgia, unspecified M54.9 [facility] [address] [place] [id number] [place] [address] 65038- 1159 Jun, Dorsalgia, unspecified M54.9 [facility] [address] [address]- 7667 Jun, [facility] [address] [place] [id number] [place] [address] 13047- 3204 Jun, Chronic obstructive pulmonary disease, unspecified J44.9 [facility] [address] [place] [id number] [place] [address] 13060- 8643 Jun, Back pain M54.9 [facility] [address] [place] [id number] [place] [address] 79256- 2074 May, Chronic obstructive pulmonary disease, unspecified J44.9 [facility] [address] [place] [id number] [place] [address] 67561- 0291 May, [facility] [address] [place] [id number] [place] [address] 17007- 5107 May, Other dorsalgia M54.89 [facility] [address] [place] [id number] [place] [address] 95081- 2867 Apr, [facility] [address] 92944- 2449 Apr, Other dorsalgia M54.89 [facility] [address] [place] [id number] [place] [address] 11181- 9143 Mar, Chronic obstructive pulmonary disease, unspecified J44.9 ; Essential hypertension I10 and Back pain M54.9 [facility] [address] [place] [id number] [place] [address] 73390- 4295 Mar, [facility] [address] [place] [id number] [place] [address] 14178- 5352 Mar, Dorsalgia, unspecified M54.9 [facility] [address] [place] [id number] [place] [address] 75029- 0708 Mar, Edema R60.9 [facility] [address] [place] [id number] [place] [address] 35318- 9314 Feb, [facility] [address] [place] [id number] [place] [address] 73206- 7948 Feb, Other dorsalgia M54.89 [facility] [address] [place] [address]- 4662 Jan, Encounter for immunization Z23 and Chronic obstructive pulmonary disease, unspecified J44.9 [facility] [address] [place] [id number] [place] [address] 77549- 0367 Jan, [facility] [address] [place] [id number] [place] [address] 76500- 1148 14 Dec, 2015 [facility] [address] [place] [id number] [place] [address] 75400- 6086 13 Dec, 2015 [facility] [address] [place] [id number] [place] [address] 47495- 9782 Dec, Essential hypertension I10 and Back pain M54.9 [facility] [address] [place] [id number] [place] [address] 59109- 2965 Nov, [facility] [address] [place] [id number] [place] [address] 25826- 1213 Nov, [facility] [address] [place] [id number] [place] [address] 94671- 0777 Oct, Other dorsalgia M54.89 [facility] [address] [place] [id number] [place] [address] 57511- 6044 Oct, [facility] [address] [place] [id number] [place] [address] 55739- 1355 Sep, [facility] [address] [place] [id number] [place] [address] 68368- 1596 Sep, [facility] [address] [place] [address] 99881 2549 Sep, [facility] [address] [place] [id number] [place] [address] 13889- 5034 August, [facility] [address] [place] [id number] [place] [address] 41002- 5730 August, Other dorsalgia M54.89 [facility] [address] [place] [id number] [place] [address] 86662- 5491 August, [facility] [address] [place] [id number] [place] [address] 00093- 5900 August, Chronic obstructive pulmonary disease, unspecified J44.9 and Back pain M54.9 [facility] [address] [place] [id number] [place] [address] 04979- 2635 August, [facility] [address] [place] [id number] [place] [address] 88470- 8824 August, [facility] [address] [place] [id number] [place] [address] 61417- 7581 August, Chronic obstructive pulmonary disease, unspecified J44.9 [facility] [address] [place] [id number] [place] [address] 26453- 3855 Jul, Other dorsalgia M54.89 [facility] [address] [place] [id number] [place] [address] 17695- 6692 Jul, Insomnia G47.00 [facility] [address] [place] [id number] [place] [address] 66084- 1152 Jun, Other dorsalgia M54.89 [facility] [address] [place] [id number] [place] [address] 99905- 5033 Jun, Other dorsalgia M54.89 [facility] [address] [place] [id number] [place] [address] 09886- 8060 May, COPD (chronic obstructive pulmonary disease) J44.9 and Bronchitis J40 [facility] [address] [place] [address] 13328- 7430 May, Chronic obstructive pulmonary disease, unspecified J44.9 [facility] [address] [place] [id number] [place] [address] 48661- 8074 May, [facility] [address] [place] [id number] [place] [address] 16460- 1612 May, Other dorsalgia M54.89 [facility] [address] [place] [id number] [address]- 0381 Apr, Chronic obstructive pulmonary disease, unspecified J44.9 [facility] [address] [place] [id number] [place] [address] 30311- 2651 Apr, [facility] [address] [place] [id number] [place] [address] 11739- 1272 Mar, [facility] [address] [place] [id number] [place] [address] 95073- 0827 Mar, COPD (chronic obstructive pulmonary disease) J44.9 ; Back pain M54.9 and Edema R60.9 [facility] [address] [place] [id number] [place] [address] 93838- 6287 Mar, [facility] [address] [place] [id number] [place] [address] 38993- 5950 Mar, [facility] [address] [place] [id number] [place] [address] 35479- 6507 Feb, [facility] [address] [place] [id number] [place] [address] 38461- 3347 Feb, [facility] [address] [place] [id number] [place] [address] 84304- 0020 Feb, [facility] [address] [place] [id number] [place] [address] 34871- 7102 Jan, [facility] [address] [place] [id number] [place] [address] 42184- 9219 Jan, [facility] [address] [place] [id number] [place] [address] 69203- 3891 Jan, [facility] [address] [place] [id number] [place] [address] 12397- 7896 Dec, Chronic airway obstruction, not elsewhere classified 496 ; Back pain 724.5 ; Flu vaccine need V04.81 and Prophylactic vaccination against streptococcus pneumoniae and influenza V06.6 [facility] [address] [place] [id number] [place] [address] 93466- 8525 Dec, [facility] [address] [facility] [id number] [place] 3128 Dec, [facility] [address] [facility] [id number] [place] [address]- 1981 Dec, [facility] [address] [facility] [id number] [place] [address]- 0587 Nov, [facility] [address] [facility] [id number] [place] [address]- 3010 Nov, [facility] [address] [facility] [id number] [place] 6321 Nov, [facility] [address] [facility] [id number] [place] [address]- 9907 Oct, [facility] [address] [place] [id number] [place] [address]- 5152 Oct, [facility] [address] [place] [id number] [place] [address]- 4908 Oct, Unspecified arthropathy, 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 and Chronic airway obstruction, not elsewhere classified 496 [facility] [address] [place] [address]- 6007 Oct, [facility] [address] [place] [id number] 3772 Sep, [facility] [address] [place] [id number] [place] [address]- 8334 Sep, [facility] [address] [facility] [id number] [place] [address]- 5573 Sep, [facility] [address] [place] [id number] [place] [address]- 0485 August, [facility] [address] [facility] [id number] [place] [address]- 5938 August, [facility] [address] [place] [id number] [place] [address]- 6940 August, [facility] [place] [facility] [address] [id number] [place] [address]- 0188 August, [facility] [place] [facility] [address] [id number] [place] [address]- 1473 August, [facility] [place] [facility] [address] [id number] [place] [address]- 6226 Jul, [facility] [place] [facility] [address] [id number] [place] [address]- 7441 Jul, [facility] [place] [facility] [address] [id number] [place] [address]- 1330 Jun, [facility] [place] [facility] [address] [id number] [place] [address]- 0742 Jun, [facility] [place] [facility] [address] [id number] [place] [address]- 8218 Jun, [facility] [place] [facility] [address] [id number] [place] [address]- 5818 Jun, [facility] [place] [facility] [address] [id number] [place] [address]- 5403 Jun, [facility] [place] [facility] [address] [id number] [place] [address]- 9234 Jun, [facility] [place] [facility] [address] [id number] [place] [address]- 3697 May, [facility] [place] [facility] [address] [id number] [place] [address]- 3412 May, [facility] [place] [facility] [address] [id number] [place] [address]- 2566 May, [facility] [place] [facility] [address] [id number] [place] 6686 May, [facility] [place] [facility] [address] [id number] [place] [address]- 9915 May, [facility] [place] [facility] [address] [id number] [place] [address]- 3529 Apr, [facility] [address] [id number] [place] [address]- 8447 Apr, [facility] [address] [id number] [place] [address]- 1863 Apr, [facility] [address] [id number] [place] [address]- 1846 Apr, [facility] [address] [id number] [place] [address]- 2908 Apr, [facility] [address] [id number] [place] [address]- 0030 Apr, [facility] [address] [id number] [place] [address]- 2558 Apr, [facility] [address] [id number] [place] [address]- 9619 Mar, [facility] [address] [id number] [place] [address]- 5990 Mar, [facility] [address] [id number] [place] [address]- 6568 Mar, [facility] [address] [id number] [place] [address]- 4737 Mar, [facility] [address] [id number] [place] [address]- 6543 Mar, [facility] [address] [id number] [place] [address]- 1649 Mar, [facility] [place] [facility] [address] [id number] [place] [address]- 0804 Mar, [facility] [place] [facility] [address] [id number] [place] [address]- 5554 Mar, [facility] [place] [facility] [address] [id number] [place] [address]- 1691 Mar, [facility] [place] [facility] [address] [id number] [place] [address]- 6455 Mar, [facility] [place] [facility] [address] [id number] [place] [address]- 9004 Feb, [facility] [place] [facility] [address] [id number] [place] 7287 Feb, [facility] [place] [facility] [address] [id number] [place] [address]- 2716 Jan, [facility] [place] [facility] [address] [id number] [place] [address]- 0754 Jan, [facility] [place] [facility] [address] [id number] [place] [address]- 3172 Jan, [facility] [place] [facility] [address] [id number] [place] [address]- 7934 14 Jan, 2014 [facility] [place] [facility] [address] [id number] [place] [address]- 6801 14 Jan, 2014 [facility] [place] [facility] [address] [id number] [place] [address]- 3369 Jan, [facility] [place] [facility] [address] [id number] [address]- 9656 Jan, [facility] [place] [facility] [address] [id number] [address]- 8704 Jan, [facility] [place] [facility] [address] [id number], [place] [address]- 7481 Jan, [facility] [place] [facility] [address] [id number], [place] [address]- 1975 Jan, [facility] [place] [facility] [address] [id number], [place] [address]- 3261 Jan, [facility] [place] [facility] [address] [id number][place] 9823 Jan, [facility] [place] [facility] [address] [id number] [address]- 4244 Dec, [facility] [place] [facility] [address] [id number] [place] [address]- 6768 Dec, [facility] [place] [facility] [address] [id number] [place] [address]- 5153 Dec, [facility] [place] [facility] [address] [id number] [place] [address]- 9091 Dec, [facility] [place] [facility] [address] [id number] [place] [address]- 5138 Dec, [facility] [place] [facility] [address] [id number] [place] [address]- 0942 Nov, [facility] [place] [facility] [address] [id number] [place] [address]- 0830 Nov, [facility] [place] [facility] [address] [id number] [place] [address]- 6888 Nov, [facility] [place] [facility] [address] [id number] [place] [address]- 2503 Nov, [facility] [place] [facility] [address] [id number] [place] [address]- 2905 Oct, [facility] [place] [facility] [address] [id number] [place] [address]- 9783 Oct, [facility] [place] [facility] [address] [id number] [place] [address]- 2020 Oct, [facility] [place] [facility] [address] [id number] [place] [address]- 6130 Oct, [facility] [place] [facility] [address] [id number] [place] [address] Oct, [facility] [place] [facility] [address] [id number] [place] [address] Oct, [facility] [place] [facility] [address] [id number] [place] [address] Oct, [facility] [place] [facility] [address] [id number] [place] [address] Oct, [facility] [place] [facility] [address] [id number] [place] [address] Oct, [facility] [place] [facility] [address] [id number] [place] [address] Oct, [facility] [place] [facility] [address] [id number] [place] [address] Sep, [facility] [place] [facility] [address] [id number] [place] [address] Sep, [facility] [place] [facility] [address] [id number] [place] [address] Sep, [facility] [place] [facility] [address] [id number] [place] [address] Sep, [facility] [place] [facility] [address] [id number] [place] [address] Sep, [facility] [place] [facility] [address] [id number] [place] [address] Sep, [facility] [place] [facility] [address] [id number] [place] [address] August, [facility] [place] [facility] [address] [id number] [place] [address] August, [facility] [place] [facility] [address] [id number] [place] [address] August, [facility] [place] [facility] [address] [id number] [place] [address] August, [facility] [place] [facility] [address] [id number] [place] [address] August, [facility] [place] [facility] [address] [id number] [place] [address] August, [facility] [place] [facility] [address] [id number] [place] [address] Jul, [facility] [place] [facility] [address] [id number] [place] [address] Jul, [facility] [place] [facility] [address] [id number] [place] [address] Jul, [facility] [place] [facility] [address] [id number] [place] [address] Jul, [facility] [place] [facility] [address] [id number] [place] [address] Jul, [facility] [place] [facility] [address] [id number] [place] [address] Jul, [facility] [place] [facility] [address] [id number] [place] [address] Jul, [facility] [place] [facility] [address] [id number] [place] [address] Jul, [facility] [place] [facility] [address] [id number] [place] [address] Jul, [facility] [place] [facility] [address] [id number] [place] [address] Jun, [facility] [place] [facility] [address] [id number] [place] [address] Jun, [facility] [place] [facility] [address] [id number] [place] [address] Jun, [facility] [place] [facility] [address] [id number] [place] [address] May, [facility] [place] [facility] [address] [id number] [place] [address] May, [facility] [place] [facility] [address] [id number] [place] [address] May, [facility] [place] [facility] [address] [id number] [place] [address] May, [facility] [place] [facility] [address] [id number] [place] [address] May, [facility] [address] [id number] [place] [address] May, [facility] [address] [id number] [place] [address] Apr, [facility] [address] [id number] [place] [address] Apr, [facility] [address] [id number] [place] [address] Apr, [facility] [address] [id number] [place] [address] Apr, [facility] [address] [id number] [place] [address] Apr, [facility] [address] [id number] [place] [address] Apr, [facility] [address] [id number] [place] [address] Apr, [facility] [address] [id number] [place] [address] Apr, [facility] [address] [id number] [place] [address] Apr, [facility] [address] [id number] [place] [address] Apr, [facility] [address] [id number] [place] [address] Mar, [facility] [place] [facility] [address] [id number] [place] [address] 9736 Mar, [facility] [place] [facility] [address] [id number] [place] [address] 6[address] Mar, [facility] [place] [facility] [address] [id number] [place] [address] 0377 Mar, [facility] [address] [id number] [place] [address] 73[address] Mar, [facility] [place] [facility] [address] [id number] [place] [address] 6428 Mar, [facility] [place] [facility] [address] [id number] [place] [address] 4205 Mar, [facility] [place] [facility] [address] [id number] [place] [address] 4482 Mar, [facility] [place] [facility] [address] [id number] [place] [address] 6296 Mar, [facility] [place] [facility] [address] [id number] [place] [address]- 8290 Mar, [facility] [place] [facility] [address] [id number] [place] [address] 6044 Mar, [facility] [place] [facility] [address] [id number] [address] Feb, [facility] [place] [facility] [address] [id number] [place] [address]- 7493 29 Feb, 2013 [facility] [place] [facility] [address] [id number] [address] 2973 Feb, [facility] [place] [facility] [address] [id number], [place] [address]- 3068 Feb, [facility] [place] [facility] [address] [id number][place] [address] 7[address] 18 Feb, 2013 [facility] [place] [facility] [address] [id number] [place] [address]- 2573 18 Feb, 2013 [facility] [place] [facility] [address] [id number][place] [address]- 3862 14 Feb, 2013 [facility] [place] [facility] [address] [id number], [place] [address] 48[address] 14 Feb, 2013 [facility] [place] [facility] [address] [id number] [place] [address]- 9249 Feb, [facility] [place] [facility] [address] [id number] [place] [address] 8043 Feb, [facility] [place] [facility] [address] [id number] [place] [address]- 7184 Feb, [facility] [place] [facility] [address] [id number] [place] [address]- 8529 Feb, [facility] [place] [facility] [address] [id number] [place] [address]- 1091 Jan, [facility] [place] [facility] [address] [id number] [place] [address] Jan, [facility] [place] [facility] [address] [id number] [place] [address]- 3950 Jan, [facility] [place] [facility] [address] [id number] [place] [address]- 5633 Jan, [facility] [place] [facility] [address] [id number] [place] [address]- 5621 Jan, [facility] [place] [facility] [address] [id number] [place] [address]- 7398 Jan, [facility] [place] [facility] [address] [facility] [id number] [place] [address]- 6295 Jan, [facility] [place] [facility] [address] [id number] [place] [address]- 9383 15 Jan, 2013 [facility] [place] [facility] [address] [id number] [place] [address]- 9030 Jan, [facility] [place] [facility] [address] [id number] [place] [address] 7607 27 Dec, 2012 [facility] [place] [facility] [address] [id number] [place] [address] 18 Dec, 2012 [facility] [place] [facility] [address] [facility] [id number] [place] [address]- 8701 17 Dec, 2012 [facility] [place] [facility] [address] [id number] [place] [address]- 6664 Dec, [facility] [place] [facility] [address] [id number] [place] [address]- 9882 Dec, [facility] [place] [facility] [address] [id number] [place] [address]- 4130 Nov, [facility] [place] [facility] [address] [id number] [place] [address]- 7085 Nov, [facility] [place] [facility] [address] [id number] [place] [address]- 1757 Oct, [facility] [place] [facility] [address] [id number] [place] [address]- 9520 Oct, [facility] [place] [facility] [address] [id number] [place] [address]- 2245 Oct, [facility] [place] [facility] [address] [id number] [place] [address]- 1541 Oct, [facility] [place] [facility] [address] [id number] [place] [address]- 6926 Oct, [facility] [place] [facility] [address] [id number] [place] [address]- 3337 Oct, [facility] [place] [facility] [address] [id number] [place] [address]- 0735 Sep, [facility] [place] [facility] [address] [id number] [place] [address]- 6491 24 Sep, 2012 [facility] [place] [facility] [address] [id number] [place] [address]- 8650 18 Sep, 2012 [facility] [place] [facility] [address] [id number] [place] [address]- 3706 17 Sep, 2012 [facility] [place] [facility] [address] [id number] [place] [address]- 7986 14 Sep, 2012 [facility] [place] [facility] [address] [id number] [place] [address]- 6530 Sep, [facility] [address] [id number] [place] [address]- 3238 Sep, [facility] [address] [id number] [place] [address]- 1996 August, [facility] [address] [id number] [place] [address]- 1556 August, [facility] [address] [id number] [place] [address]- 8306 August, [facility] [address] [id number] [place] [address]- 3466 August, [facility] [address] [id number] [place] [address]- 5926 August, [facility] [address] [id number] [place] [address]- 0046 August, [facility] [address] [id number] [place] [address]- 8425 Jul, [facility] [address] [id number] [place] [address]- 3375 Jul, [facility] [place] [facility] [address] [id number] [place] [address]- 9493 Jul, [facility] [address] [id number] [place] [address]- 3069 Jul, [facility] [place] [facility] [address] [id number] [place] [address]- 9348 08 Jul, 2012 [facility] [place] [facility] [address] [id number] [place] [address]- 1592 Jul, [facility] [place] [facility] [address] [id number] [place] [address]- 9221 Jun, [facility] [place] [facility] [address] [id number] [place] [address]- 2546 Jun, [facility] [place] [facility] [address] [id number] [place] [address]- 5134 Jun, [facility] [address] [id number] [place] [address]- 7616 Jun, [facility] [place] [facility] [address] [id number] [place] [address]- 6736 Jun, [facility] [address] [id number] [place] [address]- 0197 Jun, [facility] [place] [facility] [address] [id number] [place] [address]- 0793 May, [facility] [address] [id number] [place] [address]- 6946 May, [facility] [place] [facility] [address] [id number] [place] [address]- 3557 May, [facility] [address] [id number] [place] [address]- 1075 May, [facility] [address] [id number] [place] [address]- 2622 Apr, [facility] [place] [facility] [address] [id number] [place] [address]- 2795 Apr, [facility] [address] [id number] [place] [address]- 2406 Apr, [facility] [place] [facility] [address] [id number] [place] [address]- 7892 Apr, [facility] [place] [facility] [address] [id number] [place] [address]- 0158 Apr, [facility] [place] [facility] [address] [id number] [place] [address]- 8198 Apr, [facility] [place] [facility] [address] [id number] [place] [address]- 4246 Apr, [facility] [place] [facility] [address] [id number] [place] [address]- 8384 Apr, [facility] [address] [id number] [place] [address]- 4626 Apr, [facility] [place] [facility] [address] [id number] [place] [address]- 5366 Mar, [facility] [place] [facility] [address] [id number] [place] [address] Mar, [facility] [place] [facility] [address] [id number] [place] [address]- 1789 Mar, [facility] [place] [facility] [address] [id number] [place] [address]- 1848 Mar, [facility] [place] [facility] [address] [id number] [place] [address]- 3062 Mar, [facility] [place] [facility] [address] [id number] [place] [address]- 9126 Mar, [facility] [place] [facility] [address] [id number] [place] [address]- 8986 Mar, [facility] [place] [facility] [address] [id number] [place] [address]- 6463 Mar, [facility] [place] [facility] [address] [id number] [place] [address]- 9288 Mar, [facility] [place] [facility] [address] [id number] [place] [address]- 3156 Mar, [facility] [place] [facility] [address] [id number], [place] [address]- 4218 Feb, [facility] [place] [facility] [address] [id number] [place] [address]- 9670 Feb, [facility] [place] [facility] [address] [id number] [place] [address]- 4188 Feb, [facility] [place] [facility] [address] [id number] [place] [address]- 4266 Feb, [facility] [place] [facility] [address] [id number] [place] [address]- 9373 15 Feb, 2012 [facility] [place] [facility] [address] [id number] [place] [address]- 4738 15 Feb, 2012 [facility] [place] [facility] [address] [id number] [place] [address]- 7558 14 Feb, 2012 [facility] [place] [facility] [address] [facility] [id number] [place] [address]- 0002 29 Jan, 2012 [facility] [place] [facility] [address] [id number] [place] [address]- 0015 29 Jan, 2012 [facility] [place] [facility] [address] [id number] [place] [address]- 7313 29 Jan, 2012 [facility] [place] [facility] [address] [id number] [place] [address]- 4649 29 Jan, 2012 [facility] [place] [facility] [address] [facility] [id number] [place] [address]- 1692 29 Jan, 2012 [facility] [place] [facility] [address] [id number] [place] [address]- 6099 29 Jan, 2012 [facility] [place] [facility] [address] [facility] [id number] [place] [address]- 4305 25 Jan, 2012 [facility] [place] [facility] [address] [facility] [id number] [place] [address]- 9093 18 Jan, 2012 [facility] [place] [facility] [address] [facility] [id number] [place] [address]- 6890 18 Jan, 2012 [facility] [place] [facility] [address] [facility] [id number], [place] [address]- 8342 17 Jan, 2012 [facility] [place] [facility] [address] [id number] [place] [address]- 2301 27 Dec, 2011 [facility] [place] [facility] [address] [facility] [id number] [place] [address]- 5509 20 Dec, 2011 [facility] [place] [facility] [address] [facility] [id number], [place] [address]- 1176 17 Dec, 2011 [facility] [place] [facility] [address] [id number] [place] [address]- 1756 Dec, [facility] [place] [facility] [address] [id number] [place] [address]- 8096 Dec, [facility] [place] [facility] [address] [id number] [place] [address]- 6156 Dec, [facility] [place] [facility] [address] [id number] [place] [address]- 0448 Nov, [facility] [place] [facility] [address] [id number] [place] [address]- 4692 Nov, [facility] [place] [facility] [address] [id number] [place] [address]- 5736 Nov, [facility] [place] [facility] [address] [id number] [place] [address]- 6299 Nov, [facility] [place] [facility] [address] [id number] [place] [address]- 2755 Oct, [facility] [place] [facility] [address] [id number] [place] [address]- 2057 Oct, [facility] [place] [facility] [address] [id number] [place] [address]- 2042 Oct, [facility] [place] [facility] [address] [id number] [place] [address]- 6512 Oct, [facility] [place] [facility] [address] [id number] [place] [address]- 9310 Oct, [facility] [place] [facility] [address] [id number] [place] [address]- 5075 Oct, [facility] [place] [facility] [address] [id number] [place] [address]- 5132 Oct, [facility] [place] [facility] [address] [id number] [place] [address]- 3192 Oct, [facility] [place] [facility] [address] [id number] [place] [address]- 5634 Sep, [facility] [place] [facility] [address] [id number] [place] [address]- 3388 Sep, [facility] [place] [facility] [address] [id number] [place] [address]- 6396 Sep, [facility] [place] [facility] [address] [id number] [place] [address]- 1928 Sep, [facility] [place] [facility] [address] [id number] [place] [address]- 3093 August, [facility] [place] [facility] [address] [id number] [place] [address]- 7122 August, [facility] [place] [facility] [address] [id number] [place] [address]- 5317 Jul, [facility] [place] [facility] [address] [id number] [place] [address]- 5071 Jun, [facility] [place] [facility] [address] [id number] [place] [address]- 6697 29 Jun, 2011 [facility] [place] [facility] [address] [id number] [place] [address]- 0656 Jun, [facility] [place] [facility] [address] [id number] [place] [address]- 9075 Jun, [facility] [place] [facility] [address] [id number] [place] [address]- 3259 Jun, [facility] [place] [facility] [address] [id number] [place] [address]- 5929 Jun, [facility] [place] [facility] [address] [id number] [place] [address]- 0089 20 Jun, 2011 [facility] [place] [facility] [address] [id number] [place] [address]- 5643 16 Jun, 2011 [facility] [place] [facility] [address] [id number] [place] [address]- 7539 24 May, 2011 [facility] [place] [facility] [address] [facility] [id number] [place] [address]- 7023 May, [facility] [address] [facility] [id number], [place] [address]- 2134 Mar, IMMUNIZATIONS No Known Immunizations SOCIAL HISTORY Never Assessed REASON FOR VISIT Hydrocodone and Morphine- /2 PLAN OF CARE VITAL SIGNS MEDICATIONS Medication Instructions Dosage Frequency Start Date End Date Duration Status MS Contin 60 mg Orally every 12 hrs 1 tablet 12h Jul, 28 days Active Hydrocodone-Acetaminophen 10-325 MG Orally every 4 hours 1 tablet 4h Jul 28 days Active RESULTS No Results PROCEDURES [...] pneumonia 2012 Hospitalization History COPD exacerbation, acute bronchitis-[facility] 06/10/16
--- OUTSIDE RECORDS SUMMARY | 2018-06-11 16:12 | XMS REPORT ---
Author Author SARA CONROY [facility] Address [address] [place] [address] Care Team Providers Care Electrician Apprentice Name Role Phone SARA CONROY Unavailable PROBLEMS Type Condition ICD9-CM Code [id number] Code Onset Dates Condition Status SNOMED Code Problem Chronic pain syndrome G89.4 Active 723516317 Problem Low serum testosterone E29.1 Active 723546476 Problem Back pain M54.9 Active 116163394 Problem Essential hypertension I10 Active 11263711 Problem Chronic obstructive pulmonary disease, unspecified J44.9 Active 90028960 ALLERGIES No Information ENCOUNTERS Encounter Location Date Diagnosis [place] [address] 12631- 4384 Oct, Back pain M54.9 [place] [id number] [place] [id number] [place] [address] 51376- 2413 Sep, Back pain M54.9 [place] [address] [place] [id number] [place] [address] 89641- 2697 August, Back pain M54.9 [place] [address] [id number] [place] [address] 93604- 2234 Jul, Back pain M54.9 [place] [address] [address] [id number] [place] [address] 95640- 7147 Jul, Medicare annual wellness visit, initial Z00.00 ; Chronic obstructive pulmonary disease, unspecified J44.9 ; Back pain M54.9 ; Chronic pain syndrome G89.4 ; Essential hypertension I10 ; Low serum testosterone E29.1 ; Smoking history Z87.891 and Encounter for immunization Z23 [place] [address] [id number] [place] [address] 05803- 9673 Jul, [place] [address] [place] [id number] [place] [address] 99523- 5486 Jun, Back pain M54.9 [facility] [address] [id number] [place] [address] 03582- 0613 May, Back pain M54.9 [facility] [address] [place] [id number] [place] [address] 53917- 7861 May, Exposure to the flu Z20.828 [facility] [address] [address] [id number] [place] [address] 02657- 3709 May, Chronic pain syndrome G89.4 ; Back pain M54.9 and Chronic obstructive pulmonary disease, unspecified J44.9 [facility] [address] [place] [address] [id number] [place] [address] 59802- 9343 May, Back pain M54.9 [facility] [address] [place] [address] [id number] [place] [address] 04285- 0566 Apr, Back pain M54.9 [facility] [address] [place] [address] [id number] [place] [address] 65961- 1180 Mar, Back pain M54.9 [facility] [address] [id number] [place] [address] 45111- 1119 Feb, Back pain M54.9 [facility] [address] [place] [address] [id number] [place] [address] 83861- 2322 Jan, Back pain M54.9 [facility] [address] [place] [address] [id number] [place] [address] 72135- 8228 Dec, Chronic obstructive pulmonary disease, unspecified J44.9 and Back pain M54.9 [facility] [address] [place] [id number] [place] [address] 55637- 6613 Dec, Back pain M54.9 [facility] [address] [id number] [place] [address] 14971- 8631 Nov, Back pain M54.9 [facility] [address] [place] [address] 9258 Oct, Essential hypertension I10 [facility] [address] [place] [address] [id number] [place] [address] 76582- 1576 Oct, Back pain M54.9 [facility] [address] [place] [address] [id number] [place] [address] 00441- 7305 Oct, [facility] [address] [place] [address] [id number] [place] [address] 06124- 4153 Oct, [facility] [address] [address] [id number] [place] [address] 57268- 3366 Sep, Back pain M54.9 [facility] [address] [place] [address] [id number] [place] [address] 45846- 9946 August, [facility] [address] [place] [id number] [place] [address] 20213- 9152 August, Essential hypertension I10 [facility] [address] [place] [address] [id number] [place] [address] 87181- 1797 August, Other dorsalgia M54.89 [facility] [address] [place] [id number] [place] [address] 45258- 8458 August, Back pain M54.9 ; Chronic obstructive pulmonary disease, unspecified J44.9 and Low serum testosterone E29.1 [facility] [id number] [place] [address] 72991- 0211 Jul, Other dorsalgia M54.89 [facility] [id number] [place] [address] 65215- 6375 Jun, Dorsalgia, unspecified M54.9 [facility] [address] [place] [id number] [place] [address] 52260- 6604 Jun, Dorsalgia, unspecified M54.9 [facility] [address] [address]- 0383 Jun, [facility] [address] [place] [id number] [place] [address] 80156- 7892 Jun, Chronic obstructive pulmonary disease, unspecified J44.9 [facility] [address] [place] [id number] [place] [address] 99328- 7740 Jun, Back pain M54.9 [facility] [address] [place] [id number] [place] [address] 81771- 7539 May, Chronic obstructive pulmonary disease, unspecified J44.9 [facility] [address] [place] [id number] [place] [address] 97807- 0535 May, [facility] [address] [place] [id number] [place] [address] 63931- 9236 May, Other dorsalgia M54.89 [facility] [address] [place] [id number] [place] [address] 42145- 2396 Apr, [facility] [address] 62603- 4702 Apr, Other dorsalgia M54.89 [facility] [address] [place] [id number] [place] [address] 86347- 4902 Mar, Chronic obstructive pulmonary disease, unspecified J44.9 ; Essential hypertension I10 and Back pain M54.9 [facility] [address] [place] [id number] [place] [address] 98188- 3266 Mar, [facility] [address] [place] [id number] [place] [address] 78561- 4452 Mar, Dorsalgia, unspecified M54.9 [facility] [address] [place] [id number] [place] [address] 38256- 4816 Mar, Edema R60.9 [facility] [address] [place] [id number] [place] [address] 76298- 1268 Feb, [facility] [address] [place] [id number] [place] [address] 65466- 7384 Feb, Other dorsalgia M54.89 [facility] [address] [place] [address]- 1995 Jan, Encounter for immunization Z23 and Chronic obstructive pulmonary disease, unspecified J44.9 [facility] [address] [place] [id number] [place] [address] 59240- 1043 Jan, [facility] [address] [place] [id number] [place] [address] 74826- 6826 14 Dec, 2015 [facility] [address] [place] [id number] [place] [address] 72897- 1546 13 Dec, 2015 [facility] [address] [place] [id number] [place] [address] 30357- 3175 Dec, Essential hypertension I10 and Back pain M54.9 [facility] [address] [place] [id number] [place] [address] 33704- 2676 Nov, [facility] [address] [place] [id number] [place] [address] 38423- 3982 Nov, [facility] [address] [place] [id number] [place] [address] 88198- 8249 Oct, Other dorsalgia M54.89 [facility] [address] [place] [id number] [place] [address] 76989- 2342 Oct, [facility] [address] [place] [id number] [place] [address] 73949- 1597 Sep, [facility] [address] [place] [id number] [place] [address] 83577- 3505 Sep, [facility] [id number] [place] [address] 37247 2540 Sep, [facility] [address] [place] [id number] [place] [address] 74942- 1063 August, [facility] [address] [place] [id number] [place] [address] 34168- 3052 August, Other dorsalgia M54.89 [facility] [address] [place] [id number] [place] [address] 50080- 3903 August, [facility] [address] [place] [id number] [place] [address] 73100- 0225 August, Chronic obstructive pulmonary disease, unspecified J44.9 and Back pain M54.9 [facility] [address] [place] [id number] [place] [address] 38998- 6429 August, [facility] [address] [place] [id number] [place] [address] 49182- 1555 August, [facility] [address] [place] [id number] [place] [address] 50100- 3273 August, Chronic obstructive pulmonary disease, unspecified J44.9 [facility] [address] [place] [id number] [place] [address] 48415- 8565 Jul, Other dorsalgia M54.89 [facility] [address] [place] [id number] [place] [address] 71233- 7270 Jul, Insomnia G47.00 [facility] [address] [place] [id number] [place] [address] 13967- 9608 Jun, Other dorsalgia M54.89 [facility] [address] [place] [id number] [place] [address] 55864- 4130 Jun, Other dorsalgia M54.89 [facility] [address] [place] [id number] [place] [address] 18801- 6309 May, COPD (chronic obstructive pulmonary disease) J44.9 and Bronchitis J40 [facility] [id number] [place] [address] 13816- 2134 May, Chronic obstructive pulmonary disease, unspecified J44.9 [facility] [address] [place] [id number] [place] [address] 67671- 4971 May, [facility] [address] [place] [id number] [place] [address] 83504- 2608 May, Other dorsalgia M54.89 [facility] [address] [place] [id number] [address]- 9122 Apr, Chronic obstructive pulmonary disease, unspecified J44.9 [facility] [address] [place] [id number] [place] [address] 63253- 4409 Apr, [facility] [address] [place] [id number] [place] [address] 36047- 4760 Mar, [facility] [address] [place] [id number] [place] [address] 84751- 4148 Mar, COPD (chronic obstructive pulmonary disease) J44.9 ; Back pain M54.9 and Edema R60.9 [facility] [address] [place] [id number] [place] [address] 33394- 5674 Mar, [facility] [address] [place] [id number] [place] [address] 13682- 0049 Mar, [facility] [address] [place] [id number] [place] [address] 76682- 1770 Feb, [facility] [address] [place] [id number] [place] [address] 15726- 1434 Feb, [facility] [address] [place] [id number] [place] [address] 56278- 2960 Feb, [facility] [address] [place] [id number] [place] [address] 17987- 8618 Jan, [facility] [address] [place] [id number] [place] [address] 02701- 7023 Jan, [facility] [address] [place] [id number] [place] [address] 81832- 6503 Jan, [facility] [address] [place] [id number] [place] [address] 86631- 4519 Dec, Chronic airway obstruction, not elsewhere classified 496 ; Back pain 724.5 ; Flu vaccine need V04.81 and Prophylactic vaccination against streptococcus pneumoniae and influenza V06.6 [facility] [address] [place] [id number] [place] [address] 51216- 6189 Dec, [facility] [address] [facility] [id number] [place] 9956 Dec, [facility] [address] [facility] [id number] [place] [address]- 7298 Dec, [facility] [address] [facility] [id number] [place] [address]- 7702 Nov, [facility] [address] [facility] [id number] [place] [address]- 5069 Nov, [facility] [address] [facility] [id number] [place] 2954 Nov, [facility] [address] [facility] [id number] [place] [address]- 3160 Oct, [facility] [address] [place] [id number] [place] [address]- 4502 Oct, [facility] [address] [place] [id number] [place] [address]- 1952 Oct, Unspecified arthropathy, 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 and Chronic airway obstruction, not elsewhere classified 496 [facility] [address] [place] [address]- 4432 Oct, [facility] [address] [place] [id number] 7283 Sep, [facility] [address] [place] [id number] [place] [address]- 3461 Sep, [facility] [address] [facility] [id number] [place] [address]- 5498 Sep, [facility] [address] [place] [id number] [place] [address]- 2569 August, [facility] [address] [facility] [id number] [place] [address]- 3965 August, [facility] [address] [place] [id number] [place] [address]- 8478 August, [facility] [place] [facility] [address] [id number] [place] [address]- 9890 August, [facility] [place] [facility] [address] [id number] [place] [address]- 0087 August, [facility] [place] [facility] [address] [id number] [place] [address]- 5840 Jul, [facility] [place] [facility] [address] [id number] [place] [address]- 4302 Jul, [facility] [place] [facility] [address] [id number] [place] [address]- 0614 Jun, [facility] [place] [facility] [address] [id number] [place] [address]- 8747 Jun, [facility] [place] [facility] [address] [id number] [place] [address]- 7981 Jun, [facility] [place] [facility] [address] [id number] [place] [address]- 7187 Jun, [facility] [place] [facility] [address] [id number] [place] [address]- 3231 Jun, [facility] [place] [facility] [address] [id number] [place] [address]- 8833 Jun, [facility] [place] [facility] [address] [id number] [place] [address]- 4098 May, [facility] [place] [facility] [address] [id number] [place] [address]- 0578 May, [facility] [place] [facility] [address] [id number] [place] [address]- 8825 May, [facility] [place] [facility] [address] [id number] [place] 6723 May, [facility] [place] [facility] [address] [id number] [place] [address]- 8755 May, [facility] [place] [facility] [address] [id number] [place] [address]- 0350 Apr, [facility] [address] [id number] [place] [address]- 6892 Apr, [facility] [address] [id number] [place] [address]- 8883 Apr, [facility] [address] [id number] [place] [address]- 7963 Apr, [facility] [address] [id number] [place] [address]- 1864 Apr, [facility] [address] [id number] [place] [address]- 4246 Apr, [facility] [address] [id number] [place] [address]- 3419 Apr, [facility] [address] [id number] [place] [address]- 7105 Mar, [facility] [address] [id number] [place] [address]- 3979 Mar, [facility] [address] [id number] [place] [address]- 3358 Mar, [facility] [address] [id number] [place] [address]- 0576 Mar, [facility] [address] [id number] [place] [address]- 3964 Mar, [facility] [address] [id number] [place] [address]- 8927 Mar, [facility] [place] [facility] [address] [id number] [place] [address]- 6813 Mar, [facility] [place] [facility] [address] [id number] [place] [address]- 2868 Mar, [facility] [place] [facility] [address] [id number] [place] [address]- 1299 Mar, [facility] [place] [facility] [address] [id number] [place] [address]- 6131 Mar, [facility] [place] [facility] [address] [id number] [place] [address]- 0039 Feb, [facility] [place] [facility] [address] [id number] [place] 6519 Feb, [facility] [place] [facility] [address] [id number] [place] [address]- 6043 Jan, [facility] [place] [facility] [address] [id number] [place] [address]- 1194 Jan, [facility] [place] [facility] [address] [id number] [place] [address]- 8027 Jan, [facility] [place] [facility] [address] [id number] [place] [address]- 8459 14 Jan, 2014 [facility] [place] [facility] [address] [id number] [place] [address]- 7508 14 Jan, 2014 [facility] [place] [facility] [address] [id number] [place] [address]- 0835 Jan, [facility] [place] [facility] [address] [id number], [place] [address]- 9588 Jan, [facility] [place] [facility] [address] [id number] [address]- 1049 Jan, [facility] [place] [facility] [address] [id number], [place] [address]- 0178 Jan, [facility] [place] [facility] [address] [id number], [place] [address]- 4528 Jan, [facility] [place] [facility] [address] [id number], [place] [address]- 3877 Jan, [facility] [place] [facility] [address] [id number] 6461 Jan, [facility] [place] [facility] [address] [id number], [place] [address]- 6089 Dec, [facility] [place] [facility] [address] [id number] [place] [address]- 1539 Dec, [facility] [place] [facility] [address] [id number] [place] [address]- 5470 Dec, [facility] [place] [facility] [address] [id number] [place] [address]- 0451 Dec, [facility] [place] [facility] [address] [id number] [place] [address]- 2523 Dec, [facility] [place] [facility] [address] [id number] [place] [address]- 2962 Nov, [facility] [place] [facility] [address] [id number] [place] [address]- 1222 Nov, [facility] [place] [facility] [address] [id number] [place] [address] Nov, [facility] [place] [facility] [address] [id number] [place] [address] Nov, [facility] [place] [facility] [address] [id number] [place] [address] Oct, [facility] [place] [facility] [address] [id number] [place] [address] Oct, [facility] [place] [facility] [address] [id number] [place] [address] Oct, [facility] [place] [facility] [address] [id number] [place] [address] Oct, [facility] [place] [facility] [address] [id number] [place] [address] Oct, [facility] [place] [facility] [address] [id number] [place] [address] Oct, [facility] [place] [facility] [address] [id number] [place] [address] Oct, [facility] [place] [facility] [address] [id number] [place] [address] Oct, [facility] [place] [facility] [address] [id number] [place] [address] Oct, [facility] [place] [facility] [address] [id number] [place] [address] Oct, [facility] [place] [facility] [address] [id number] [place] [address] Sep, [facility] [place] [facility] [address] [id number] [place] [address] Sep, [facility] [place] [facility] [address] [id number] [place] [address] Sep, [facility] [place] [facility] [address] [id number] [place] [address] Sep, [facility] [place] [facility] [address] [id number] [place] [address] Sep, [facility] [place] [facility] [address] [id number] [place] [address] Sep, [facility] [place] [facility] [address] [id number] [place] [address] August, [facility] [place] [facility] [address] [id number] [place] [address] August, [facility] [place] [facility] [address] [id number] [place] [address] August, [facility] [place] [facility] [address] [id number] [place] [address] August, [facility] [place] [facility] [address] [id number] [place] [address] August, [facility] [place] [facility] [address] [id number] [place] [address] August, [facility] [place] [facility] [address] [id number] [place] [address] Jul, [facility] [place] [facility] [address] [id number] [place] [address] Jul, [facility] [place] [facility] [address] [id number] [place] [address] Jul, [facility] [place] [facility] [address] [id number] [place] [address] Jul, [facility] [place] [facility] [address] [id number] [place] [address] Jul, [facility] [place] [facility] [address] [id number] [place] [address] Jul, [facility] [place] [facility] [address] [id number] [place] [address] Jul, [facility] [place] [facility] [address] [id number] [place] [address] Jul, [facility] [place] [facility] [address] [id number] [place] [address] Jul, [facility] [place] [facility] [address] [id number] [place] [address] Jun, [facility] [place] [facility] [address] [id number] [place] [address] Jun, [facility] [place] [facility] [address] [id number] [place] [address] Jun, [facility] [place] [facility] [address] [id number] [place] [address] May, [facility] [place] [facility] [address] [id number] [place] [address] May, [facility] [place] [facility] [address] [id number] [place] [address] May, [facility] [place] [facility] [address] [id number] [place] [address] May, [facility] [place] [facility] [address] [id number] [place] [address] May, [facility] [address] [id number] [place] [address] May, [facility] [address] [id number] [place] [address] Apr, [facility] [address] [id number] [place] [address] Apr, [facility] [address] [id number] [place] [address] Apr, [facility] [address] [id number] [place] [address] Apr, [facility] [address] [id number] [place] [address] Apr, [facility] [address] [id number] [place] [address] 8[address] Apr, [facility] [address] [id number] [place] [address] 5777 Apr, [facility] [address] [id number] [place] [address] 0258 Apr, [facility] [address] [id number] [place] [address] 4357 Apr, [facility] [address] [id number] [place] [address] 3708 Apr, [facility] [address] [id number] [place] [address] 69[address] Mar, [facility] [place] [facility] [address] [id number] [place] [address] 6756 Mar, [facility] [place] [facility] [address] [id number] [place] [address]26 Mar, [facility] [place] [facility] [address] [id number] [place] [address] 5028 Mar, [facility] [address] [id number] [place] [address] 2611 Mar, [facility] [place] [facility] [address] [id number] [place] [address] 8429 Mar, [facility] [place] [facility] [address] [id number] [place] [address] 2386 Mar, [facility] [place] [facility] [address] [id number] [place] [address] 8992 Mar, [facility] [place] [facility] [address] [id number] [place] [address] 7949 Mar, [facility] [place] [facility] [address] [id number] [place] [address]- 8867 Mar, [facility] [place] [facility] [address] [id number] [place] [address] 8216 Mar, [facility] [place] [facility] [address] [id number] [address] Feb, [facility] [place] [facility] [address] [id number] [place] [address] 9758 29 Feb, 2013 [facility] [place] [facility] [address] [id number], [place] [address] Feb, [facility] [place] [facility] [address] [id number], [place] [address] 58[address] Feb, [facility] [place] [facility] [address] [id number], [place] [address] 8580 18 Feb, 2013 [facility] [place] [facility] [address] [id number] [place] [address] 2961 18 Feb, 2013 [facility] [place] [facility] [address] [id number], [place] [address] 8[address] 14 Feb, 2013 [facility] [place] [facility] [address] [id number], [place] [address] 6677 14 Feb, 2013 [facility] [place] [facility] [address] [id number] [place] [address]- 4254 Feb, [facility] [place] [facility] [address] [id number] [place] [address]- 0146 Feb, [facility] [place] [facility] [address] [id number] [place] [address] 7402 Feb, [facility] [place] [facility] [address] [id number] [place] [address]- 5145 Feb, [facility] [place] [facility] [address] [id number] [place] [address]- 0234 Jan, [facility] [place] [facility] [address] [id number] [place] [address] Jan, [facility] [place] [facility] [address] [id number] [place] [address] 1040 Jan, [facility] [place] [facility] [address] [id number] [place] [address]- 8741 Jan, [facility] [place] [facility] [address] [id number] [place] [address]- 7709 Jan, [facility] [place] [facility] [address] [id number] [place] [address] 9348 Jan, [facility] [place] [facility] [address] [facility] [id number] [place] [address] 9381 Jan, [facility] [place] [facility] [address] [id number] [place] [address]- 3145 15 Jan, 2013 [facility] [place] [facility] [address] [id number] [place] [address]- 0273 Jan, [facility] [place] [facility] [address] [id number] [place] [address] 8017 27 Dec, 2012 [facility] [place] [facility] [address] [id number] [place] [address]75 18 Dec, 2012 [facility] [place] [facility] [address] [facility] [id number] [place] [address]- 7135 17 Dec, 2012 [facility] [place] [facility] [address] [id number] [place] [address]- 0948 Dec, [facility] [place] [facility] [address] [id number] [place] [address]- 8182 Dec, [facility] [place] [facility] [address] [id number] [place] [address] 3708 Nov, [facility] [place] [facility] [address] [id number] [place] [address] 6446 Nov, [facility] [place] [facility] [address] [id number] [place] [address]- 8179 Oct, [facility] [place] [facility] [address] [id number] [place] [address]- 4475 Oct, [facility] [place] [facility] [address] [id number] [place] [address]- 6161 Oct, [facility] [place] [facility] [address] [id number] [place] [address]- 9701 Oct, [facility] [place] [facility] [address] [id number] [place] [address]- 0020 Oct, [facility] [place] [facility] [address] [id number] [place] [address]- 3725 Oct, [facility] [place] [facility] [address] [id number] [place] [address]- 6833 Sep, [facility] [place] [facility] [address] [id number] [place] [address]- 9565 24 Sep, 2012 [facility] [place] [facility] [address] [id number] [place] [address]- 1175 18 Sep, 2012 [facility] [place] [facility] [address] [id number] [place] [address]- 3675 17 Sep, 2012 [facility] [place] [facility] [address] [id number] [place] [address]- 7411 14 Sep, 2012 [facility] [place] [facility] [address] [id number] [place] [address]- 4716 Sep, [facility] [address] [id number] [place] [address]- 9064 Sep, [facility] [address] [id number] [place] [address]- 5706 August, [facility] [address] [id number] [place] [address]- 7846 August, [facility] [address] [id number] [place] [address]- 9946 August, [facility] [address] [id number] [place] [address]- 2258 August, [facility] [address] [id number] [place] [address]- 3246 August, [facility] [address] [id number] [place] [address]- 4816 August, [facility] [address] [id number] [place] [address]- 6055 Jul, [facility] [address] [id number] [place] [address]- 3764 Jul, [facility] [place] [facility] [address] [id number] [place] [address]- 4329 Jul, [facility] [address] [id number] [place] [address]- 5043 Jul, [facility] [place] [facility] [address] [id number] [place] [address]- 4360 08 Jul, 2012 [facility] [place] [facility] [address] [id number] [place] [address]- 6234 Jul, [facility] [place] [facility] [address] [id number] [place] [address]- 0943 Jun, [facility] [place] [facility] [address] [id number] [place] [address]- 2546 Jun, [facility] [place] [facility] [address] [id number] [place] [address]- 7799 Jun, [facility] [address] [id number] [place] [address]- 6247 Jun, [facility] [place] [facility] [address] [id number] [place] [address]- 0206 Jun, [facility] [address] [id number] [place] [address]- 9099 Jun, [facility] [place] [facility] [address] [id number] [place] [address]- 6690 May, [facility] [address] [id number] [place] [address]- 0876 May, [facility] [place] [facility] [address] [id number] [place] [address]- 7181 May, [facility] [address] [id number] [place] [address]- 2036 May, [facility] [address] [id number] [place] [address]- 0511 Apr, [facility] [place] [facility] [address] [id number] [place] [address]- 3552 Apr, [facility] [address] [id number] [place] [address]- 6623 Apr, [facility] [place] [facility] [address] [id number] [place] [address]- 1229 Apr, [facility] [place] [facility] [address] [id number] [place] [address]- 3859 Apr, [facility] [place] [facility] [address] [id number] [place] [address]- 4447 Apr, [facility] [place] [facility] [address] [id number] [place] [address]- 8676 Apr, [facility] [place] [facility] [address] [id number] [place] [address]- 3958 Apr, [facility] [address] [id number] [place] [address]- 6248 Apr, [facility] [place] [facility] [address] [id number] [place] [address]- 1483 Mar, [facility] [place] [facility] [address] [id number] [place] [address] Mar, [facility] [place] [facility] [address] [id number] [place] [address]- 4812 Mar, [facility] [place] [facility] [address] [id number] [place] [address]- 0428 Mar, [facility] [place] [facility] [address] [id number] [place] [address]- 4425 Mar, [facility] [place] [facility] [address] [id number] [place] [address]- 9790 Mar, [facility] [place] [facility] [address] [id number] [place] [address]- 1829 Mar, [facility] [place] [facility] [address] [id number] [place] [address]- 4947 Mar, [facility] [place] [facility] [address] [id number] [place] [address]- 1162 Mar, [facility] [place] [facility] [address] [id number] [place] [address]- 4689 Mar, [facility] [place] [facility] [address] [id number], [place] [address]- 1993 Feb, [facility] [place] [facility] [address] [id number] [place] [address]- 2171 Feb, [facility] [place] [facility] [address] [id number] [place] [address]- 6842 Feb, [facility] [place] [facility] [address] [id number] [place] [address]- 0274 Feb, [facility] [place] [facility] [address] [id number] [place] [address]- 5407 15 Feb, 2012 [facility] [place] [facility] [address] [id number] [place] [address]- 2870 15 Feb, 2012 [facility] [place] [facility] [address] [id number] [place] [address]- 0166 14 Feb, 2012 [facility] [place] [facility] [address] [facility] [id number] [place] [address]- 8531 29 Jan, 2012 [facility] [place] [facility] [address] [id number] [place] [address]- 0850 29 Jan, 2012 [facility] [place] [facility] [address] [id number] [place] [address]- 8015 29 Jan, 2012 [facility] [place] [facility] [address] [id number] [place] [address]- 6605 29 Jan, 2012 [facility] [place] [facility] [address] [facility] [id number] [place] [address]- 0370 29 Jan, 2012 [facility] [place] [facility] [address] [id number] [place] [address]- 1591 29 Jan, 2012 [facility] [place] [facility] [address] [facility] [id number] [place] [address]- 2908 25 Jan, 2012 [facility] [place] [facility] [address] [facility] [id number] [place] [address]- 9298 18 Jan, 2012 [facility] [place] [facility] [address] [facility] [id number] [place] [address]- 0950 18 Jan, 2012 [facility] [place] [facility] [address] [facility] [id number], [place] [address]- 4004 17 Jan, 2012 [facility] [place] [facility] [address] [id number] [place] [address]- 8610 27 Dec, 2011 [facility] [place] [facility] [address] [facility] [id number] [place] [address]- 9158 20 Dec, 2011 [facility] [place] [facility] [address] [facility] [id number], [place] [address]- 9782 17 Dec, 2011 [facility] [place] [facility] [address] [id number] [place] [address]- 5986 Dec, [facility] [place] [facility] [address] [id number] [place] [address]- 7346 Dec, [facility] [place] [facility] [address] [id number] [place] [address]- 5256 Dec, [facility] [place] [facility] [address] [id number] [place] [address]- 6500 Nov, [facility] [place] [facility] [address] [id number] [place] [address]- 3184 Nov, [facility] [place] [facility] [address] [id number] [place] [address]- 2190 Nov, [facility] [place] [facility] [address] [id number] [place] [address]- 3566 Nov, [facility] [place] [facility] [address] [id number] [place] [address]- 9870 Oct, [facility] [place] [facility] [address] [id number] [place] [address]- 7522 Oct, [facility] [place] [facility] [address] [id number] [place] [address]- 6711 Oct, [facility] [place] [facility] [address] [id number] [place] [address]- 5515 Oct, [facility] [place] [facility] [address] [id number] [place] [address]- 5902 Oct, [facility] [place] [facility] [address] [id number] [place] [address]- 9708 Oct, [facility] [place] [facility] [address] [id number] [place] [address]- 5131 Oct, [facility] [place] [facility] [address] [id number] [place] [address]- 0085 Oct, [facility] [place] [facility] [address] [id number] [place] [address]- 7415 Sep, [facility] [place] [facility] [address] [id number] [place] [address]- 0902 Sep, [facility] [place] [facility] [address] [id number] [place] [address]- 5586 Sep, [facility] [place] [facility] [address] [id number] [place] [address]- 0661 Sep, [facility] [place] [facility] [address] [id number] [place] [address]- 0849 August, [facility] [place] [facility] [address] [id number] [place] [address]- 9206 August, [facility] [place] [facility] [address] [id number] [place] [address]- 0743 Jul, [facility] [place] [facility] [address] [id number] [place] [address]- 9969 Jun, [facility] [place] [facility] [address] [id number] [place] [address]- 9725 29 Jun, 2011 [facility] [place] [facility] [address] [id number] [place] [address]- 2450 Jun, [facility] [place] [facility] [address] [id number] [place] [address]- 7993 Jun, [facility] [place] [facility] [address] [id number] [place] [address]- 6151 Jun, [facility] [place] [facility] [address] [id number] [place] [address]- 0861 Jun, [facility] [place] [facility] [address] [id number] [place] [address]- 1338 20 Jun, 2011 [facility] [place] [facility] [address] [id number] [place] [address]- 8008 16 Jun, 2011 [facility] [place] [facility] [address] [id number] [place] [address]- 0629 24 May, 2011 [facility] [place] [facility] [address] [facility] [id number] [place] [address]- 9280 May, [facility] [address] [facility] [id number] [place] [address] [address]79 Mar, IMMUNIZATIONS No Known Immunizations SOCIAL HISTORY Never Assessed REASON FOR VISIT Albuterol from [facility] OF CARE VITAL SIGNS MEDICATIONS Unknown Medications RESULTS No Results PROCEDURES No Known procedures [...] pneumonia 2012 Hospitalization History COPD exacerbation, acute bronchitis-[facility] 06/10/16
--- OUTSIDE RECORDS SUMMARY | 2018-06-11 16:13 | XMS REPORT ---
Author Author SARA CONROY Organization [employer] Address Unknown Phone Unavailable Care Team Providers Care Nuclear Physics Teacher Name Role Phone SARA CONROY CP Unavailable Allergies No Known Allergies Problems Problem Type Condition Code Onset Dates Condition Status Problem Essential hypertension, benign 401.1 Active Problem Depressive disorder, not elsewhere classified 311 Active Problem Reflux esophagitis 530.11 Active Problem Dyspepsia and other specified disorders of function of stomach 536.8 Active Problem Back pain 724.5 Active Problem Chronic airway obstruction, not elsewhere classified 496 Active Problem Unspecified arthropathy, 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
--- OUTSIDE RECORDS SUMMARY | 2018-06-11 16:13 | XMS REPORT ---
Author Author SARA CONROY [facility] Address [address] [place] [address] Care Team Providers Care Merchandising Stock Associate Name Role Phone SARA CONROY Unavailable PROBLEMS Type Condition ICD9-CM Code GHD75-PV Code Onset Dates Condition Status SNOMED Code Problem Chronic pain syndrome G89.4 Active 774953566 Problem Low serum testosterone E29.1 Active 180280454 Problem Back pain M54.9 Active 958948940 Problem Essential hypertension I10 Active 93771123 Problem Chronic obstructive pulmonary disease, unspecified J44.9 Active [id number] ALLERGIES No Information ENCOUNTERS Encounter Location Date Diagnosis [place] [address] [address] Sep, Back pain M54.9 [place] [address] 7[address]54- 7325 August, Back pain M54.9 [place] [address] 12885- 3461 Jul, Back pain M54.9 [place] [address] 14006- 0997 Jul, Medicare annual wellness visit, initial Z00.00 ; Chronic obstructive pulmonary disease, unspecified J44.9 ; Back pain M54.9 ; Chronic pain syndrome G89.4 ; Essential hypertension I10 ; Low serum testosterone E29.1 ; Smoking history Z87.891 and Encounter for immunization Z23 [place] [address] 53799- 0873 Jul, [place] [address] 61201- 8473 Jun, Back pain M54.9 [place] [address] [place] [id number] [place] [address] 20766- 4703 May, Back pain M54.9 [facility] [address] [place] [id number] [place] [address] 24423- 8202 May, Exposure to the flu Z20.828 [facility] [address] [place] [id number] [place] [address] 25221- 0043 May, Chronic pain syndrome G89.4 ; Back pain M54.9 and Chronic obstructive pulmonary disease, unspecified J44.9 [facility] [address] [place] [id number] [place] [address] 55061- 5208 May, Back pain M54.9 [facility] [address] [place] [id number] [place] [address] 87423- 9912 Apr, Back pain M54.9 [facility] [address] [place] [id number] [place] [address] 96383- 2828 Mar, Back pain M54.9 [facility] [address] [place] [id number] [place] [address] 74732- 2644 Feb, Back pain M54.9 [facility] [address] [place] [id number] [place] [address] 74113- 0563 Jan, Back pain M54.9 [facility] [address] [place] [id number] [place] [address] 24811- 5516 Dec, Chronic obstructive pulmonary disease, unspecified J44.9 and Back pain M54.9 [facility] [address] [place] [id number] [place] [address] 98382- 6997 Dec, Back pain M54.9 [facility] [address] [place] [id number] [place] [address] 52149- 9858 Nov, Back pain M54.9 [facility] [address] [place] [id number] [place] [address] 63258- 4564 Oct, Essential hypertension I10 [facility] [address] [place] [address]- 9229 Oct, Back pain M54.9 [facility] [address] [place] [id number] [place] [address] 27936- 2884 Oct, [facility] [address] [place] [id number] [place] [address] 26770- 5395 Oct, [facility] [address] [place] [id number] [place] [address] 71343- 9321 Sep, Back pain M54.9 [facility] [address] [place] [id number] [place] [address] 31982- 1209 August, [facility] [address] [place] [id number] [place] [address] 57409- 9789 August, Essential hypertension I10 [facility] [address] [place] [id number] [place] [address] 19739- 8646 August, Other dorsalgia M54.89 [facility] [address] [place] [id number] [place] [address] 68710- 2311 August, Back pain M54.9 ; Chronic obstructive pulmonary disease, unspecified J44.9 and Low serum testosterone E29.1 [facility] [address] [place] [address] 05011- 5050 Jul, Other dorsalgia M54.89 [facility] [address], [place] [address]- 7589 Jun, Dorsalgia, unspecified M54.9 [facility] [address] [place] [address] 09048- 0823 Jun, Dorsalgia, unspecified M54.9 [facility] [address] [place] [id number] [place] [address] 47670- 3647 Jun, [facility] [address] [address]- 3398 Jun, Chronic obstructive pulmonary disease, unspecified J44.9 [facility] [address] [place] [id number] [place] [address] 73438- 0600 Jun, Back pain M54.9 [facility] [address] 53927- 8189 May, Chronic obstructive pulmonary disease, unspecified J44.9 [facility] [address] 73187- 1206 May, [facility] [address] 76962- 9705 May, Other dorsalgia M54.89 [facility] [address] 40743- 8552 Apr, [facility] [address] 60776- 7015 Apr, Other dorsalgia M54.89 [facility] [address] 99538- 8945 Mar, Chronic obstructive pulmonary disease, unspecified J44.9 ; Essential hypertension I10 and Back pain M54.9 [facility] [address] 11128- 3908 Mar, [facility] [address] 09104- 5511 Mar, Dorsalgia, unspecified M54.9 [facility] [address] 83111- 7594 Mar, Edema R60.9 [facility] [address] [place] [id number] [place] [address] 83350- 1199 Feb, [facility] [address] 96081- 0333 Feb, Other dorsalgia M54.89 [facility] [address] [place] [id number] [place] [address] 15965- 3777 Jan, Encounter for immunization Z23 and Chronic obstructive pulmonary disease, unspecified J44.9 [facility] [address] [facility] [id number] [place] [address]- 1464 13 Jan, 2016 [facility] [address] [facility] [id number] [place] [address], [place] [address] 2546 14 Dec, 2015 [facility] [address] [facility] [id number] [place] [address] 2546 13 Dec, 2015 [facility] [address] [facility] [id number] [place] [address], [place] [address] 2546 13 Dec, 2015 Essential hypertension I10 and Back pain M54.9 [facility] [address] [facility] [id number] [place] [address], [place] [address]- 0073 Nov, [facility] [address] [facility] [id number] [place] [address], [place] [address]- 1344 Nov, [facility] [address] [facility] [id number] [place] [address], [place] [address]- 5369 Oct, Other dorsalgia M54.89 [facility] [address] [facility] [id number] [place] [address]- 1621 Oct, [facility] [address] [facility] [id number] [place] [address], [place] [address]- 2619 Sep, [facility] [address] [facility] [id number] [place] [address]- 1224 Sep, [facility] [address] [place] [id number] [place] [address]- 9929 Sep, [facility] [address] [facility] [id number] [place] [address] 2545 August, [facility] [address] [facility] [id number] [place] [address], [place] [address]- 5878 August, Other dorsalgia M54.89 [facility] [address] [facility] [id number] [place] [address]- 5275 August, [facility] [address] [place] [id number] [place] [address]- 3537 August, Chronic obstructive pulmonary disease, unspecified J44.9 and Back pain M54.9 [facility] [address] [place] [id number] [place] [address] 56898- 4399 August, [facility] [address] [place] [id number] [place] [address] 30856- 3390 August, [facility] [address] [place] [id number] [place] [address] 31772- 4600 August, Chronic obstructive pulmonary disease, unspecified J44.9 [facility] [address] [place] [id number] [place] [address] 43517- 8265 Jul, Other dorsalgia M54.89 [facility] [address] [place] [id number] [place] [address] 16339- 3774 Jul, Insomnia G47.00 [facility] [address] [place] [id number] [place] [address] 20035- 8480 Jun, Other dorsalgia M54.89 [facility] [address] [place] [id number] [place] [address] 38300- 0775 Jun, Other dorsalgia M54.89 [facility] [address] [place] [id number] [place] [address] 66874- 6642 May, COPD (chronic obstructive pulmonary disease) J44.9 and Bronchitis J40 [facility] [address] [place] [id number] [place] [address] 51728- 9436 May, Chronic obstructive pulmonary disease, unspecified J44.9 [facility] [address] [place] [id number] [place] [address] 94062- 7836 May, [facility] [address] [place] [id number] [place] [address] 91869- 7207 May, Other dorsalgia M54.89 [facility] [address] [place] [address] 59674- 9141 Apr, Chronic obstructive pulmonary disease, unspecified J44.9 [facility] [address] [place] [id number] [address]- 3190 08 Apr, 2015 [facility] [address] [place] [id number] [place] [address] 86149- 3035 14 Mar, 2015 [facility] [address] [place] [id number] [place] [address] 36836- 8825 14 Mar, 2015 COPD (chronic obstructive pulmonary disease) J44.9 ; Back pain M54.9 and Edema R60.9 [facility] [address] [place] [id number] [place] [address] 59886- 2806 11 Mar, 2015 [facility] [address] [place] [id number] [place] [address] 90796- 5161 Mar, [facility] [address] [place] [id number] [place] [address] 88383- 2111 24 Feb, 2015 [facility] [address] [place] [id number] [place] [address] 84754- 1356 Feb, [facility] [address] [place] [id number] [place] [address] 19570- 4885 Feb, [facility] [address] [place] [id number] [place] [address] 93485- 4221 29 Jan, 2015 [facility] [address], [place] [address]- 8913 Jan, [facility] [address], [place] [address]- 8112 Jan, [facility] [address], [place] [address]- 0400 24 Dec, 2014 Chronic airway obstruction, not elsewhere classified 496 ; Back pain 724.5 ; Flu vaccine need V04.81 and Prophylactic vaccination against streptococcus pneumoniae and influenza V06.6 [facility] [address], [place] [address]- 0236 Dec, [facility] [address], [place] [address]- 2907 Dec, [facility] [address] [id number] [place] [address]- 1199 Dec, [facility] [address] [id number] [place] [address]- 8721 Nov, [facility] [address] [id number] [place] [address]- 4368 Nov, [facility] [address] [facility] [id number] [place] [address]- [address] Nov, [facility] [address] [id number] [place] [address]- [address] Oct, [facility] [address] [id number] [place] [address]- 9782 Oct, [facility] [address] [facility] [id number] [place] [address]- 2858 Oct, Unspecified arthropathy, 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 and Chronic airway obstruction, not elsewhere classified 496 [facility] [address] [id number] [place] [address]- 5895 Oct, [facility] [address] [id number] [place] [address]- 3883 Sep, [facility] [address] [facility] [id number] [place] [address]- 4037 Sep, [facility] [address] [id number] [place] [address]- 9140 Sep, [facility] [address] [id number] [place] [address]- [address] August, [facility] [address] [id number] [place] [address]- [address] August, [facility] [address] [facility] [id number] [place] [address]- [address] August, [facility] [address] [facility] [id number] [place] [address]- 0189 August, [facility] [place] [facility] [address] [id number] [place] [address]- 7684 August, [facility] [place] [facility] [address] [id number] [place] [address]- 4024 Jul, [facility] [place] [facility] [address] [id number] [place] [address]- 1409 Jul, [facility] [place] [facility] [address] [id number] [place] [address]- 6406 Jun, [facility] [place] [facility] [address] [id number] [place] [address]- 1970 Jun, [facility] [place] [facility] [address] [id number] [place] [address]- 1014 Jun, [facility] [place] [facility] [address] [id number] [place] [address]- 7586 Jun, [facility] [place] [facility] [address] [id number] [place] [address]- 0175 Jun, [facility] [place] [facility] [address] [id number] [place] [address]- 9150 Jun, [facility] [place] [facility] [address] [id number] [place] [address]- 3762 May, [facility] [place] [facility] [address] [id number] [place] [address]- 5259 May, [facility] [place] [facility] [address] [id number] [place] [address]- 7685 May, [facility] [place] [facility] [address] [id number] [place] [address]- 1193 May, [facility] [place] [facility] [address] [id number] [place] [address]- 6927 May, [facility] [place] [facility] [address] [id number] [place] [address]- 4684 Apr, [facility] [place] [facility] [address] [id number] [place] [address]- 5722 Apr, [facility] [address] [id number] [place] [address]- 8966 Apr, [facility] [place] [facility] [address] [id number] [place] [address]- 7207 Apr, [facility] [place] [facility] [address] [id number] [place] [address]- 1416 Apr, [facility] [place] [facility] [address] [id number] [place] [address]- 0280 Apr, [facility] [place] [facility] [address] [id number] [place] [address]- 9721 Apr, [facility] [place] [facility] [address] [id number] [place] [address]- 3996 Mar, [facility] [place] [facility] [address] [id number] [place] [address]- 1055 Mar, [facility] [place] [facility] [address] [id number] [place] [address]- 3123 Mar, [facility] [place] [facility] [address] [id number] [place] [address]- 4989 Mar, [facility] [place] [facility] [address] [id number] [place] [address]- 6204 Mar, [facility] [place] [facility] [address] [id number] [place] [address]- 5495 Mar, [facility] [place] [facility] [address] [id number] [place] [address]- 4435 Mar, [facility] [place] [facility] [address] [id number] [place] [address]- 7516 Mar, [facility] [place] [facility] [address] [id number] [place] 8543 Mar, [facility] [place] [facility] [address] [id number] [place] 4344 Mar, [facility] [place] [facility] [address] [id number] [place] [address]- 2143 17 Feb, 2014 [facility] [place] [facility] [address] [id number] [place] [address]- 8096 17 Feb, 2014 [facility] [place] [facility] [address] [id number] [place] [address]- 2428 20 Jan, 2014 [facility] [place] [facility] [address] [id number] [place] [address]- 1666 20 Jan, 2014 [facility] [place] [facility] [address] [id number] [place] [address]- 9199 14 Jan, 2014 [facility] [place] [facility] [address] [id number] [place] [address]- 8353 14 Jan, 2014 [facility] [place] [facility] [address] [id number] [place] [address]- 6432 14 Jan, 2014 [facility] [place] [facility] [address] [id number] [place] [address]- 5296 14 Jan, 2014 [facility] [place] [facility] [address] [id number] [place] [address]- 9271 Jan, [facility] [place] [facility] [address] [id number] [place] [address]- 5607 Jan, [facility] [place] [facility] [address] [id number] [place] [address]- 1769 Jan, [facility] [place] [facility] [address] [id number] [place] [address]- 6606 Jan, [facility] [place] [facility] [address] [id number] [place] [address]- 6852 Jan, [facility] [place] [facility] [address] [id number] [place] [address]- 6300 Jan, [facility] [place] [facility] [address] [id number] [place] [address]- 7240 Dec, [facility] [place] [facility] [address] [id number] [place] [address]- 6975 Dec, [facility] [place] [facility] [address] [id number] [place] [address]- 4935 Dec, [facility] [place] [facility] [address] [id number] [place] [address]- 2207 Dec, [facility] [place] [facility] [address] [id number] [place] [address]- 9356 Dec, [facility] [place] [facility] [address] [id number] [place] [address]- 8615 Nov, [facility] [place] [facility] [address] [id number] [place] [address]- 7257 Nov, [facility] [place] [facility] [address] [id number] [place] [address]- 6829 Nov, [facility] [place] [facility] [address] [id number] [place] [address]- 6691 Nov, [facility] [place] [facility] [address] [id number] [place] [address]- 2212 Oct, [facility] [place] [facility] [address] [id number] [place] [address]- 2480 Oct, [facility] [place] [facility] [address] [id number] [place] [address]- 0041 Oct, [facility] [place] [facility] [address] [id number] [place] [address]- 0154 Oct, [facility] [place] [facility] [address] [id number] [place] [address]- 7464 Oct, [facility] [place] [facility] [address] [id number] [place] [address]- 1168 Oct, [facility] [place] [facility] [address] [id number] [place] [address]- 4505 Oct, [facility] [place] [facility] [address] [id number] [place] 9199 Oct, [facility] [place] [facility] [address] [id number] [place] [address]- 8009 Oct, [facility] [address] [id number] [place] [address]- 2555 Oct, [facility] [place] [facility] [address] [id number] [place] [address]- 8345 Sep, [facility] [place] [facility] [address] [id number] [place] [address]- 7288 Sep, [facility] [place] [facility] [address] [id number] [place] [address]- 4891 Sep, [facility] [place] [facility] [address] [id number] [place] [address]- 4588 Sep, [facility] [place] [facility] [address] [id number] [place] [address]- 9569 Sep, [facility] [address] [id number] [place] [address]- 6361 Sep, [facility] [address] [id number] [place] [address]- 2267 August, [facility] [place] [facility] [address] [id number] [place] [address]- [address] August, [facility] [address] [id number] [place] [address]- 2541 August[facility] [place] [facility] [address] [id number] [place] [address]- 4375 August, [facility] [place] [facility] [address] [id number] [place] [address]- 5814 August, [facility] [place] [facility] [address] [id number] [place] [address]- 2690 August, [facility] [place] [facility] [address] [id number] [place] [address]- 1640 Jul, [facility] [place] [facility] [address] [id number] [place] [address]- 1650 Jul, [facility] [place] [facility] [address] [id number] [place] [address]- 8090 Jul, [facility] [place] [facility] [address] [id number] [place] [address]- 5703 Jul, [facility] [place] [facility] [address] [id number] [place] [address]- 5836 Jul, [facility] [place] [facility] [address] [id number] [place] [address]- 5139 Jul, [facility] [place] [facility] [address] [id number] [place] [address]- 3901 Jul, [facility] [place] [facility] [address] [id number] [place] [address]- 2443 Jul, [facility] [place] [facility] [address] [id number] [place] [address]- 9991 Jul, [facility] [place] [facility] [address] [id number] [place] [address] Jun, [facility] [place] [facility] [address] [id number] [place] [address] Jun, [facility] [place] [facility] [address] [id number] [place] [address] Jun, [facility] [place] [facility] [address] [id number] [place] [address] May, [facility] [place] [facility] [address] [id number] [place] [address] May, [facility] [place] [facility] [address] [id number] [place] [address] May, [facility] [place] [facility] [address] [id number] [place] [address] May, [facility] [place] [facility] [address] [id number] [place] [address] May, [facility] [place] [facility] [address] [id number] [place] [address] May, [facility] [address] [id number] [place] [address] Apr, [facility] [place] [facility] [address] [id number] [place] [address] Apr, [facility] [place] [facility] [address] [id number] [place] [address] Apr, [facility] [place] [facility] [address] [id number] [place] [address] Apr, [facility] [place] [facility] [address] [id number] [place] [address] Apr, [facility] [place] [facility] [address] [id number] [place] [address] Apr, [facility] [address] [id number] [place] [address] Apr, [facility] [place] [facility] [address] [id number] [place] [address] Apr, [facility] [place] [facility] [address] [id number] [place] [address] Apr, [facility] [place] [facility] [address] [id number] [place] [address] Apr, [facility] [place] [facility] [address] [id number] [place] [address] Mar, [facility] [place] [facility] [address] [id number] [place] [address] Mar, [facility] [place] [facility] [address] [id number] [place] [address] Mar, [facility] [place] [facility] [address] [id number] [place] [address] Mar, [facility] [place] [facility] [address] [id number] [place] [address] Mar, [facility] [place] [facility] [address] [id number] [place] [address] Mar, [facility] [address] [id number] [place] [address] Mar, [facility] [place] [facility] [address] [id number] [place] [address] Mar, [facility] [address] [id number] [place] [address] Mar, [facility] [address] [id number] [place] [address] Mar, [facility] [address] [id number] [place] [address] Mar, [facility] [address] [id number] [place] [address] Feb, [facility] [address] [id number] [place] [address] Feb, [facility] [address] [id number] [place] [address] Feb, [facility] [address] [id number] [place] [address] Feb, [facility] [place] [facility] [address] [id number] [place] [address] Feb, [facility] [place] [facility] [address] [id number] [place] [address] 18 Feb, 2013 [facility] [place] [facility] [address] [id number] [place] [address] 14 Feb, 2013 [facility] [place] [facility] [address] [id number] [place] [address] 14 Feb, 2013 [facility] [place] [facility] [address] [id number] [place] [address] 12 Feb, 2013 [facility] [place] [facility] [address] [id number] [place] [address]- [address] Feb, [facility] [place] [facility] [address] [id number] [place] [address] Feb, [facility] [place] [facility] [address] [id number] [place] [address] Feb, [facility] [place] [facility] [address] [id number] [place] [address] Jan, [facility] [place] [facility] [address] [id number] [place] [address] Jan, [facility] [place] [facility] [address] [id number] [place] [address] Jan, [facility] [place] [facility] [address] [id number] [place] [address] Jan, [facility] [place] [facility] [address] [id number] [place] [address] Jan, [facility] [place] [facility] [address] [id number] [place] [address] Jan, [facility] [place] [facility] [address] [id number] [place] [address] Jan, [facility] [place] [facility] [address] [id number] [place] [address] Jan, [facility] [place] [facility] [address] [id number], [place] [address] Jan, [facility] [place] [facility] [address] [id number], [place] [address] 27 Dec, 2012 [facility] [place] [facility] [address] [id number] [place] [address] 18 Sep2012 [facility] [place] [facility] [address] [id number] [place] [address] 17 Sep2012 [facility] [place] [facility] [address] [id number] [place] [address] 11 Dec, 2012 [facility] [place] [facility] [address] [id number] [place] [address] 05 Dec, 2012 [facility] [address] [id number] [place] [address] Nov, [facility] [place] [facility] [address] [id number] [place] [address] Nov, [facility] [address] [id number] [place] [address] Oct, [facility] [place] [facility] [address] [id number] [place] [address] Oct, [facility] [address] [id number] [place] [address] Oct, [facility] [place] [facility] [address] [id number] [place] [address] Oct, [facility] [place] [facility] [address] [id number] [place] [address] Oct, [facility] [address] [id number] [place] [address] 17[address] Oct, [facility] [place] [facility] [address] [id number] [place] [address]- 17[address] Sep, [facility] [address] [id number] [place] [address]- 9429 24 Sep, 2012 [facility] [place] [facility] [address] [id number] [place] [address]- [address]237 18 Sep, 2012 [facility] [place] [facility] [address] [id number] [place] [address]- 0413 17 Sep, 2012 [facility] [place] [facility] [address] [id number] [place] [address]- 1514 14 Sep, 2012 [facility] [place] [facility] [address] [id number] [place] [address]- 6529 10 Sep, 2012 [facility] [place] [facility] [address] [id number] [place] [address] Sep, [facility] [address] [id number] [place] [address] 16[address] August, [facility] [address] [id number] [place] [address] August, [facility] [address] [id number] [place] [address]794 August, [facility] [address] [id number] [place] [address]- 8606 August, [facility] [address] [id number] [place] [address] 4831 August, [facility] [address] [id number] [place] [address]- 5366 August, [facility] [address] [id number] [place] [address] 9199 Jul, [facility] [address] [id number] [place] [address]- [address]278 Jul, [facility] [address] [id number] [place] [address] Jul, [facility] [address] [id number] [place] [address] 2846 Jul, [facility] [address] [id number] [place] [address]- 1057 Jul, [facility] [place] [facility] [address] [id number] [place] [address]- 29[address] Jul, [facility] [place] [facility] [address] [id number] [place] [address]- 6938 Jun, [facility] [place] [facility] [address] [id number] [place] [address]- 1546 Jun, [facility] [place] [facility] [address] [id number] [place] [address]- 2567 Jun, [facility] [place] [facility] [address] [id number], [place] [address] 08 Jun, 2012 [facility] [address] [id number] [place] [address]- 3040 Jun, [facility] [address] [id number] [place] [address] 0396 Jun, [facility] [address] [id number] [place] [address]- 9934 May, [facility] [place] [facility] [address] [id number] [place] [address]- 6488 May, [facility] [address] [id number] [place] [address]- 1539 May, [facility] [address] [id number] [place] [address] May, [facility] [address] [id number] [place] [address]- [address]907 Apr, [facility] [address] [id number] [place] [address]- 1192 Apr, [facility] [address] [id number] [place] [address]- [address] Apr, [facility] [address] [id number] [place] [address]- 7561 Apr, [facility] [address] [id number] [place] [address]- 4432 Apr, [facility] [place] [facility] [address] [id number] [place] [address]- 3215 Apr, [facility] [place] [facility] [address] [id number] [place] [address]- 0275 Apr, [facility] [place] [facility] [address] [id number] [place] [address]- 6881 Apr, [facility] [address] [id number] [place] [address]- 5643 Apr, [facility] [place] [facility] [address] [id number] [place] [address]- 7918 Mar, [facility] [place] [facility] [address] [id number] [place] [address]- 8378 Mar, [facility] [place] [facility] [address] [id number] [place] [address] Mar, [facility] [place] [facility] [address] [id number] [place] [address]- 6609 Mar, [facility] [address] [id number] [place] [address]- 2629 Mar, [facility] [address] [id number] [place] [address]- 4329 Mar, [facility] [address] [id number] [place] [address] 9306 Mar, [facility] [address] [id number] [place] [address] Mar, [facility] [place] [facility] [address] [id number] [place] [address] 7409 Mar, [facility] [place] [facility] [address] [id number] [place] [address]- 1660 Mar, [facility] [place] [facility] [address] [id number] [place] [address]- 0571 Feb, [facility] [place] [facility] [address] [id number] [place] [address]- 8718 Feb, [facility] [place] [facility] [address] [id number] [place] [address]- 4171 Feb, [facility] [place] [facility] [address] [id number] [place] [address]- 5245 Feb, [facility] [place] [facility] [address] [id number] [place] [address]- 0797 15 Feb, 2012 [facility] [place] [facility] [address] [id number] [place] [address]- 7623 15 Feb, 2012 [facility] [place] [facility] [address] [id number] [place] [address]- 8445 14 Feb, 2012 [facility] [place] [facility] [address] [id number] [place] [address] 29 Jan, 2012 [facility] [place] [facility] [address] [id number] [place] [address]- 7756 Jan, [facility] [place] [facility] [address] [id number] [place] [address]- 3133 Jan, [facility] [place] [facility] [address] [id number] [place] [address]- 9732 Jan, [facility] [place] [facility] [address] [id number] [place] [address]- 7966 Jan, [facility] [place] [facility] [address] [id number] [place] [address]- 8623 Jan, [facility] [place] [facility] [address] [id number] [place] [address]- 1219 Jan, [facility] [place] [facility] [address] [id number] [place] [address]- 4863 Jan, [facility] [place] [facility] [address] [id number] [place] [address]- 5739 18 Jan, 2012 [facility] [place] [facility] [address] [id number], [place] [address]- 2[address] 17 Jan, 2012 [facility] [place] [facility] [address] [id number], [place] [address]- 4710 27 Dec, 2011 [facility] [place] [facility] [address] [id number] [place] [address]- 0545 20 Sep2011 [facility] [place] [facility] [address] [id number] [place] [address]- 9453 17 Sep2011 [facility] [place] [facility] [address] [id number] [place] [address] 06 Sep, 2011 [facility] [place] [facility] [address] [id number] [place] [address]- 2546 Dec, [facility] [place] [facility] [address] [id number] [place] [address]- 6466 Dec, [facility] [place] [facility] [address] [id number] [place] [address]- 5326 Nov, [facility] [place] [facility] [address] [id number] [place] [address]- 7164 Nov, [facility] [place] [facility] [address] [id number] [place] [address]- 6192 Nov, [facility] [place] [facility] [address] [id number] [place] [address]- 8977 Nov, [facility] [place] [facility] [address] [id number] [place] [address]- 3843 Oct, [facility] [place] [facility] [address] [id number] [place] [address]- 2251 Oct, [facility] [address] [id number] [place] [address]- 6627 Oct, [facility] [place] [facility] [address] [id number] [place] [address]- 7991 Oct, [facility] [address] [id number] [place] [address]- 0682 Oct, [facility] [place] [facility] [address] [id number] [place] [address]- 8574 Oct, [facility] [place] [facility] [address] [id number] [place] [address]- 4892 Oct, [facility] [place] [facility] [address] [id number] [place] [address]- 9602 Oct, [facility] [place] [facility] [address] [id number] [place] [address]- 9586 Sep, [facility] [place] [facility] [address] [id number] [place] [address]- 1046 Sep, [facility] [place] [facility] [address] [id number] [place] [address]- 4751 Sep, [facility] [place] [facility] [address] [id number] [place] [address] Sep, [facility] [place] [facility] [address] [id number] [place] [address]- 8054 August, [facility] [place] [facility] [address] [id number] [place] [address]- 7074 August, [facility] [place] [facility] [address] [id number] [place] [address]- 7357 Jul, [facility] [place] [facility] [address] [id number] [place] [address]- 0637 Jun, [facility] [place] [facility] [address] [id number] [place] [address]- 9623 Jun, [facility] [place] [facility] [address] [id number] [place] [address]- 0179 Jun, [facility] [place] [facility] [address] [id number] [place] [address]- 9042 Jun, [facility] [place] [facility] [address] [id number] [place] [address]- 2502 Jun, [facility] [place] [facility] [address] [id number] [place] [address]- 6345 Jun, [facility] [place] [facility] [address] [id number] [place] [address]- 1953 Jun, [facility] [place] [facility] [address] [id number] [place] [address]- 4787 16 Jun, 2011 [facility] [place] [facility] [address] [id number] [place] [address]- 3336 May, [facility] [place] [facility] [address] [id number] [place] [address] May, [facility] [place] [facility] [address] [facility] [id number] [place] [address] Mar, IMMUNIZATIONS No Known Immunizations SOCIAL HISTORY Never Assessed REASON FOR VISIT Requests return call PLAN OF CARE VITAL SIGNS MEDICATIONS Medication Instructions Dosage Frequency Start Date End Date Duration Status Tamiflu 75 MG Orally Once a day 1 capsule 24h May, 10 days Active RESULTS No Results PROCEDURES No [...] pneumonia 2012 Hospitalization History COPD exacerbation, acute bronchitis-[facility] 06/10/16
--- OUTSIDE RECORDS SUMMARY | 2018-06-11 16:14 | XMS REPORT ---
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 [facility] [address] [id number] [place] [address]- 3136 Jun, [facility] [place] [facility] [address] [id number] [place] [address]- 0326 Jun, [facility] [place] [facility] [address] [id number], [place] [address]- 6627 08 Jun, 2012 [facility] [address] [id number] [place] [address]- 8106 Jun, [facility] [address] [id number] [place] [address]- 3431 Jun, [facility] [address] [id number] [place] [address]- 0499 May, [facility] [place] [facility] [address] [id number] [place] [address]- 1181 May, [facility] [address] [id number] [place] [address]- 4647 May, [facility] [address] [id number] [place] [address]- 2029 May, [facility] [address] [id number] [place] [address]- 6084 Apr, [facility] [address] [id number] [place] [address]- 0932 Apr, [facility] [address] [id number] [place] [address]- 5250 Apr, [facility] [address] [id number] [place] [address]- 5658 Apr, [facility] [address] [id number] [place] [address]- 2284 Apr, [facility] [place] [facility] [address] [id number] [place] [address]- 4369 Apr, [facility] [place] [facility] [address] [id number] [place] [address]- 6914 Apr, [facility] [place] [facility] [address] [id number] [place] [address]- 3360 Apr, [facility] [address] [id number] [place] [address]- 6273 Apr, [facility] [place] [facility] [address] [id number] [place] [address]- 6987 Mar, [facility] [place] [facility] [address] [id number] [place] [address]- 7424 Mar, [facility] [place] [facility] [address] [id number] [place] [address] Mar, [facility] [place] [facility] [address] [id number] [place] [address]- 8297 Mar, [facility] [address] [id number] [place] [address]- 4041 Mar, [facility] [address] [id number] [place] [address]- 0717 Mar, [facility] [address] [id number] [place] [address]- 8328 Mar, [facility] [address] [id number] [place] [address]- 3361 Mar, [facility] [place] [facility] [address] [id number] [place] [address]- 4594 Mar, [facility] [place] [facility] [address] [id number] [place] [address]- 6362 Mar, [facility] [place] [facility] [address] [id number] [place] [address]- 1460 Feb, [facility] [place] [facility] [address] [id number] [place] [address]- 8644 Feb, [facility] [place] [facility] [address] [id number] [place] [address]- 5871 Feb, [facility] [place] [facility] [address] [id number] [place] [address]- 6508 Feb, [facility] [place] [facility] [address] [id number] [place] [address]- 9836 15 Feb, 2012 [facility] [place] [facility] [address] [id number] [place] [address]- 1223 15 Feb, 2012 [facility] [place] [facility] [address] [id number] [place] [address]- 8541 14 Feb, 2012 [facility] [place] [facility] [address] [id number] [place] [address]076 29 Jan, 2012 [facility] [place] [facility] [address] [id number] [place] [address]- 9716 Jan, [facility] [place] [facility] [address] [id number] [place] [address]- 5250 Jan, [facility] [place] [facility] [address] [id number] [place] [address]- 5760 Jan, [facility] [place] [facility] [address] [id number] [place] [address]- 6380 Jan, [facility] [place] [facility] [address] [id number] [place] [address]- 5668 Jan, [facility] [place] [facility] [address] [id number] [place] [address]- 6580 Jan, [facility] [place] [facility] [address] [id number] [place] [address]- 8472 Jan, [facility] [place] [facility] [address] [id number] [place] [address]- 8690 18 Jan, 2012 [facility] [place] [facility] [address] [id number], [place] [address]- 2394 17 Jan, 2012 [facility] [place] [facility] [address] [id number], [place] [address]- 4083 27 Dec, 2011 [facility] [place] [facility] [address] [id number] [place] [address]- 6197 20 Sep2011 [facility] [place] [facility] [address] [id number] [place] [address]- 9093 17 Sep2011 [facility] [place] [facility] [address] [id number] [place] [address]26 06 Sep, 2011 [facility] [place] [facility] [address] [id number] [place] [address]- 2546 Dec, [facility] [place] [facility] [address] [id number] [place] [address]- 5088 Dec, [facility] [place] [facility] [address] [id number] [place] [address]- 9906 Nov, [facility] [place] [facility] [address] [id number] [place] [address]- 3227 Nov, [facility] [place] [facility] [address] [id number] [place] [address]- 5033 Nov, [facility] [place] [facility] [address] [id number] [place] [address]- 4633 Nov, [facility] [place] [facility] [address] [id number] [place] [address]- 3993 Oct, [facility] [place] [facility] [address] [id number] [place] [address]- 4395 Oct, [facility] [address] [id number] [place] [address]- 1888 Oct, [facility] [place] [facility] [address] [id number] [place] [address]- 9191 Oct, [facility] [address] [id number] [place] [address]- 5930 Oct, [facility] [place] [facility] [address] [id number] [place] [address]- 8560 Oct, [facility] [place] [facility] [address] [id number] [place] [address]- 6062 Oct, [facility] [place] [facility] [address] [id number] [place] [address]- 1825 Oct, [facility] [place] [facility] [address] [id number] [place] [address]- 9556 Sep, [facility] [place] [facility] [address] [id number] [place] [address]- 4935 Sep, [facility] [place] [facility] [address] [id number] [place] [address]- 6716 Sep, [facility] [place] [facility] [address] [id number] [place] [address]797 Sep, [facility] [place] [facility] [address] [id number] [place] [address]- 2584 August, [facility] [place] [facility] [address] [id number] [place] [address]- 7730 August, [facility] [place] [facility] [address] [id number] [place] [address]- 1397 Jul, [facility] [place] [facility] [address] [id number] [place] [address]- 9698 Jun, [facility] [place] [facility] [address] [id number] [place] [address]- 1535 Jun, [facility] [place] [facility] [address] [id number] [place] [address]- 1909 Jun, [facility] [place] [facility] [address] [id number] [place] [address]- 3088 Jun, [facility] [place] [facility] [address] [id number] [place] [address]- 4062 Jun, [facility] [place] [facility] [address] [id number] [place] [address]- 0602 Jun, [facility] [place] [facility] [address] [id number] [place] [address]- 1394 Jun, [facility] [place] [facility] [address] [id number] [place] [address]- 3604 16 Jun, 2011 [facility] [place] [facility] [address] [id number] [place] [address]- 1696 May, [facility] [place] [facility] [address] [id number] [place] 2861 May, [facility] [place] [facility] [address] [facility] [id number] [place] [id number] [address] Mar, IMMUNIZATIONS No Known Immunizations SOCIAL HISTORY Never Assessed REASON FOR VISIT Hydrocodone and Morphine 07/02 PLAN OF CARE VITAL SIGNS MEDICATIONS Medication Instructions Dosage Frequency Start Date End Date Duration Status Hydrocodone-Acetaminophen 10-325 MG Orally every 4 hours 1 tablet 4h Jun 28 days Active MS Contin 60 mg Orally every 12 hrs 1 tablet 12h Jun, 28 days Active RESULTS No Results PROCEDURES [...] pneumonia 2012 Hospitalization History COPD exacerbation, acute bronchitis-[facility] 06/10/16
--- OUTSIDE RECORDS SUMMARY | 2018-06-11 16:15 | XMS REPORT ---
Author Author SARA CONROY [facility] Address [address] [place] [address] Care Team Providers Care Managing Attorney Name Role Phone SARA CONROY Unavailable PROBLEMS Type Condition ICD9-CM Code [id number] Code Onset Dates Condition Status SNOMED Code Problem Chronic pain syndrome G89.4 Active 349331720 Problem Low serum testosterone E29.1 Active 767005710 Problem Back pain M54.9 Active 065956411 Problem Essential hypertension I10 Active 91751560 Problem Chronic obstructive pulmonary disease, unspecified J44.9 Active [id number] ALLERGIES No Information ENCOUNTERS Encounter Location Date Diagnosis [place] [id number] [place] [address] 18390- 4706 Jul, Back pain M54.9 [place] [id number] [place] [address] 25044- 0188 Jul, Medicare annual wellness visit, initial Z00.00 ; Chronic obstructive pulmonary disease, unspecified J44.9 ; Back pain M54.9 ; Chronic pain syndrome G89.4 ; Essential hypertension I10 ; Low serum testosterone E29.1 ; Smoking history Z87.891 and Encounter for immunization Z23 [place] [id number] [place] [address] 04011- 7699 Jul, [place] [id number] [place] [address] 89054- 6021 Jun, Back pain M54.9 [place] [id number] [place] [address] 00459- 4458 28 May, 2017 Back pain M54.9 [place] [id number] [place] [address] 64591- 4933 13 May, 2017 Exposure to the flu Z20.828 [facility] [id number] [place] [address] 99576- 8757 May, Chronic pain syndrome G89.4 ; Back pain M54.9 and Chronic obstructive pulmonary disease, unspecified J44.9 [facility] [id number] [place] [address] 69710- 0750 May, Back pain M54.9 [facility] [id number] [place] [address] 04873- 4014 Apr, Back pain M54.9 [facility] [id number] [place] [address] 25159- 9092 Mar, Back pain M54.9 [facility] [id number] [place] [address] 41566- 9839 Feb, Back pain M54.9 [facility] [id number] [place] [address] 36216- 9985 Jan, Back pain M54.9 [facility] [id number] [place] [address] 36169- 3520 Dec, Chronic obstructive pulmonary disease, unspecified J44.9 and Back pain M54.9 [facility] [id number] [place] [address] 36386- 2516 Dec, Back pain M54.9 [facility] [id number] [place] [address] 78358- 4523 Nov, Back pain M54.9 [facility] [id number] [place] [address] 55836- 6659 Oct, Essential hypertension I10 [facility] [id number] [place] [address] 74200- 7874 Oct, Back pain M54.9 [facility] [id number] [place] [address] 13369- 2389 Oct, [facility] [address] 60325- 8144 Oct, [facility] [address] [address]- 5132 Sep, Back pain M54.9 [facility] [id number] [place] [address] 922978- 6163 August, [facility] [id number] [place] [address] 63170- 8261 August, Essential hypertension I10 [facility] [id number] [place] [address] 71069- 4859 August, Other dorsalgia M54.89 [facility] [id number] [place] [address] 93567- 4034 August, Back pain M54.9 ; Chronic obstructive pulmonary disease, unspecified J44.9 and Low serum testosterone E29.1 [facility] [id number] [place] [address] 00323- 0578 Jul, Other dorsalgia M54.89 [facility] [id number] [place] [address] 36818- 1448 Jun, Dorsalgia, unspecified M54.9 [facility] [id number] [place] [address] 83908- 0704 Jun, Dorsalgia, unspecified M54.9 [facility] [address] [address]- 7888 Jun, [facility] [id number] [place] [address] 30435- 7476 Jun, Chronic obstructive pulmonary disease, unspecified J44.9 [facility] [id number] [place] [address] 83434- 7173 Jun, Back pain M54.9 [facility] [address] [address]- 6437 May, Chronic obstructive pulmonary disease, unspecified J44.9 [facility] [id number] [place] [address] 99802- 4129 May, [facility] [id number] [place] [address] 79211- 5568 May, Other dorsalgia M54.89 [facility] [id number] [place] [address] 74610- 6478 Apr, [facility] [address] 76324- 8056 Apr, Other dorsalgia M54.89 [facility] [id number] [place] [address] 24144- 0451 Mar, Chronic obstructive pulmonary disease, unspecified J44.9 ; Essential hypertension I10 and Back pain M54.9 [facility] [id number] [place] [address] 89154- 7169 Mar, [facility] [address] 99102- 7494 Mar, Dorsalgia, unspecified M54.9 [facility] [id number] [place] [address] 24462- 7069 Mar, Edema R60.9 [facility] [id number] [place] [address] 61430- 2017 Feb, [facility] [id number] [place] [address] 40148- 2373 Feb, Other dorsalgia M54.89 [facility] [id number] [place] [address] 87255- 9920 Jan, Encounter for immunization Z23 and Chronic obstructive pulmonary disease, unspecified J44.9 [facility] [address] 28769- 5348 Jan, [facility] [id number] [place] [address] 06303- 2967 14 Dec, 2015 [facility] [address] [place] [address]- 7661 13 Dec, 2015 [facility] [address] [facility] [id number] [place] [address]- 8043 Dec, Essential hypertension I10 and Back pain M54.9 [facility] [address] [facility] [id number] [place] [address]- 0013 Nov, [facility] [address] [facility] [id number] [place] [address], [place] [address]- 6314 Nov, [facility] [address] [facility] [id number] [place] [address], [place] [address]- 0559 Oct, Other dorsalgia M54.89 [facility] [address] [facility] [id number] [place] [address], [place] [address]- 5345 Oct, [facility] [id number] [place] [address], [place] [address]- 7630 Sep, [facility] [id number] [place] [address] 65191- 8687 Sep, [facility] [address] [facility] [id number] [place] [address], [place] [address]- 8109 Sep, [facility] [id number] [place] [address] 24705- 7098 August, [facility] [address] [facility] [id number] [address]- 2276 August, Other dorsalgia M54.89 [facility] [address] [facility] [id number] [place] [address]- 1664 August, [facility] [address] [facility] [id number], [place] [address]- 3101 August, Chronic obstructive pulmonary disease, unspecified J44.9 and Back pain M54.9 [facility] [address] [facility] [id number], [place] [address]- 7074 August, [facility] [id number] [address]- 2019 August, [facility] [id number] [place] [address] 38751- 1006 August, Chronic obstructive pulmonary disease, unspecified J44.9 [facility] [id number] [place] [address] 67886- 2806 Jul, Other dorsalgia M54.89 [facility] [id number] [place] [address] 06293- 7846 Jul, Insomnia G47.00 [facility] [id number] [place] [address] 17114- 9808 Jun, Other dorsalgia M54.89 [facility] [id number] [place] [address] 92307- 9382 Jun, Other dorsalgia M54.89 [facility] [id number] [place] [address] 43875- 2124 May, COPD (chronic obstructive pulmonary disease) J44.9 and Bronchitis J40 [facility] [id number] [place] [address] 70714- 7071 May, Chronic obstructive pulmonary disease, unspecified J44.9 [facility] [id number] [place] [address] 59845- 1245 May, [facility] [id number] [place] [address] 22472- 1592 May, Other dorsalgia M54.89 [facility] [id number] [place] [address] 42528- 5157 Apr, Chronic obstructive pulmonary disease, unspecified J44.9 [facility] [id number] [place] [address] 53309- 7076 Apr, [facility] [id number] [place] [address] 67084- 9943 Mar, [facility] [address] 49293- 8011 14 Mar, 2015 COPD (chronic obstructive pulmonary disease) J44.9 ; Back pain M54.9 and Edema R60.9 [facility] [id number] [place] [address] 64479- 0914 11 Mar, 2015 [facility] [id number] [place] [address] 04212- 8069 Mar, [facility] [id number] [place] [address] 70344- 8677 Feb, [facility] [id number] [place] [address] 61499- 5676 Feb, [facility] [id number] [place] [address] 35925- 1560 Feb, [facility] [id number] [place] [address] 30596- 4122 Jan, [facility] [id number] [place] [address] 77050- 1671 Jan, [facility] [id number] [place] [address] 86004- 2076 Jan, [facility] [id number] [place] [address] 54395- 2502 Dec, Chronic airway obstruction, not elsewhere classified 496 ; Back pain 724.5 ; Flu vaccine need V04.81 and Prophylactic vaccination against streptococcus pneumoniae and influenza V06.6 [facility] [address] [address]- 6840 Dec, [facility] [id number] [place] [address] 05283- 7548 Dec, [facility] [id number] [place] [address] 92402- 4704 Dec, [facility] [id number] [place] [address] 87839- 7393 Nov, [facility] [id number] [place] [address]- 1796 Nov, [facility] [id number] [place] [address]- 6167 Nov, [facility] [id number] [place] [address]- 1404 Oct, [facility] [id number], [place] [address]- 8824 Oct, [facility] [address] [address]- 7629 Oct, Unspecified arthropathy, 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 and Chronic airway obstruction, not elsewhere classified 496 [facility] [id number], [place] [address]- 2237 Oct, [facility] [id number], [place] [address]- 6785 Sep, [facility] [id number], [place] [address]- 8534 Sep, [facility] [id number] [address]- 9395 Sep, [facility] [id number] [place] [address]- 3926 August, [facility] [id number] [address]- 0842 August, [facility] [place] [facility] [id number] [address]- 0732 August, [facility] [place] [facility] [id number] [place] [address]- 6921 August, [facility] [place] [facility] [id number] [address]- 9378 August, [facility] [place] [facility] [id number] [place] [address]- 0961 Jul, [facility] [place] [facility] [id number] [place] [address]- 1737 Jul, [facility] [place] [facility] [address] [id number] [place] [address]- 1949 Jun, [facility] [place] [facility] [address] [id number] [place] [address]- 6758 Jun, [facility] [place] [facility] [address] [id number] [place] [address]- 1228 Jun, [facility] [place] [facility] [address] [id number] [place] [address] 2548 Jun, [facility] [place] [facility] [address] [id number] [place] [address]- 8854 Jun, [facility] [place] [facility] [address] [facility] [id number] [place] [address]- 2546 Jun, [facility] [place] [facility] [address] [facility] [id number] [place] [address]- 6021 May, [facility] [place] [facility] [address] [id number] [place] [address]- 2777 May, [facility] [place] [facility] [address] [facility] [id number] [place] [address]- 9171 May, [facility] [place] [facility] [address] [facility] [id number] [place] [address]- 4646 May, [facility] [place] [facility] [address] [facility] [id number] [place] [address]- 3424 May, [facility] [place] [facility] [address] [id number] [place] [address]- 0143 Apr, [facility] [place] [facility] [address] [id number] [place] [address]- 4130 Apr, [facility] [place] [facility] [address] [facility] [id number] [place] [address]- 6216 Apr, [facility] [place] [facility] [address] [facility] [id number] [place] [address]- 8078 Apr, [facility] [place] [facility] [address] [id number] [place] [address]- 2876 Apr, [facility] [place] [facility] [address] [id number] [place] [address]- 5425 Apr, [facility] [place] [facility] [address] [id number] [place] [address]- 2264 Apr, [facility] [place] [facility] [address] [id number] [place] [address]- 0936 Mar, [facility] [place] [facility] [address] [id number] [place] [address]- 7164 Mar, [facility] [place] [facility] [address] [id number] [place] [address]- 5292 Mar, [facility] [place] [facility] [address] [id number] [place] [address]- 9634 Mar, [facility] [place] [facility] [address] [id number] [place] [address]- 0050 Mar, [facility] [place] [facility] [address] [id number] [place] [address]- 9309 Mar, [facility] [place] [facility] [address] [id number] [place] [address]- 4611 Mar, [facility] [place] [facility] [address] [id number] [place] [address]- 0622 Mar, [facility] [place] [facility] [address] [id number] [place] [address]- 3235 Mar, [facility] [place] [facility] [address] [id number] [place] 2734 Mar, [facility] [place] [facility] [address] [id number] [place] [address]- 2655 Feb, [facility] [place] [facility] [address] [id number] [place] [address]- 8781 Feb, [facility] [place] [facility] [address] [id number] [place] [address]- 6950 20 Jan, 2013 [facility] [place] [facility] [address] [id number] [place] [address]- 3623 20 Jan, 2014 [facility] [place] [facility] [address] [id number] [place] [address]- 1655 14 Jan, 2014 [facility] [place] [facility] [address] [id number] [place] [address]- 0942 14 Jan, 2014 [facility] [place] [facility] [address] [id number] [place] [address]- 4415 14 Jan, 2014 [facility] [place] [facility] [address] [id number] [place] [address]- 4520 14 Jan, 2014 [facility] [place] [facility] [address] [id number] [place] [address]- 0388 13 Jan, 2014 [facility] [place] [facility] [address] [id number] [place] [address]- 0562 13 Jan, 2013 [facility] [place] [facility] [address] [id number] [place] [address]- 3288 09 Jan, 2014 [facility] [place] [facility] [address] [id number] [place] [address]- 6702 09 Jan, 2014 [facility] [place] [facility] [address] [id number] [place] [address]- 1136 08 Jan, 2014 [facility] [place] [facility] [address] [id number] [place] [address]- 0531 08 Jan, 2014 [facility] [place] [facility] [address] [id number] [place] [address]- 7739 25 Dec, 2013 [facility] [place] [facility] [address] [id number] [place] [address]- 1449 Dec, [facility] [place] [facility] [address] [id number] [place] [address]- 1434 Dec, [facility] [place] [facility] [address] [id number] [place] [address]- 3916 Dec2013 [facility] [place] [facility] [address] [id number] [place] [address]- 4216 Dec, [facility] [place] [facility] [address] [id number] [place] [address]- 6433 Nov, [facility] [place] [facility] [address] [id number] [place] [address]- 7990 Nov, [facility] [place] [facility] [address] [id number] [place] [address]- 0252 Nov, [facility] [place] [facility] [address] [id number] [place] [address]- 4440 Nov, [facility] [place] [facility] [address] [id number] [place] [address]- 0819 Oct, [facility] [place] [facility] [address] [id number] [place] [address]- 1274 Oct, [facility] [place] [facility] [address] [id number] [place] [address]- 2973 Oct, [facility] [place] [facility] [address] [id number] [place] [address]- 0809 Oct, [facility] [place] [facility] [address] [id number] [place] [address]- 6868 Oct, [facility] [place] [facility] [address] [id number] [place] [address]- 9926 Oct, [facility] [place] [facility] [address] [id number] [place] [address]- 5296 Oct, [facility] [place] [facility] [address] [id number] [place] [address]- 5609 Oct, [facility] [place] [facility] [address] [id number] [place] [address]- 1844 Oct, [facility] [place] [facility] [address] [id number] [place] [address]- 6935 Oct, [facility] [place] [facility] [address] [id number] [place] [address]- 0418 Sep, [facility] [place] [facility] [address] [id number] [place] [address]- 4566 Sep, [facility] [place] [facility] [address] [id number] [place] [address]- 7017 Sep, [facility] [place] [facility] [address] [id number] [place] [address]- 8041 Sep, [facility] [place] [facility] [address] [id number] [place] [address]- 3998 Sep, [facility] [place] [facility] [address] [id number] [place] [address]- 4555 Sep, [facility] [place] [facility] [address] [id number] [place] [address]- 7436 August, [facility] [place] [facility] [address] [id number] [place] [address]- 3770 August, [facility] [place] [facility] [address] [id number] [place] [address]- 2107 August, [facility] [place] [facility] [address] [id number] [place] [address]- 2805 August, [facility] [place] [facility] [address] [id number] [place] [address]- 6150 August, [facility] [place] [facility] [address] [id number] [place] [address]- 5010 August, [facility] [place] [facility] [address] [id number] [place] [address]- 6639 Jul, [facility] [place] [facility] [address] [id number] [place] [address]- 6080 Jul, [facility] [place] [facility] [address] [id number] [place] [address]- 6026 Jul, [facility] [place] [facility] [address] [id number] [place] [address]- 0396 Jul, [facility] [place] [facility] [address] [id number] [place] [address]- 8698 10 Jul, 2013 [facility] [place] [facility] [address] [id number] [place] [address]- 5161 Jul, [facility] [place] [facility] [address] [id number] [place] [address]- 6603 Jul, [facility] [place] [facility] [address] [id number] [place] [address]- 0379 Jul, [facility] [place] [facility] [address] [id number] [place] [address] Jul, [facility] [place] [facility] [address] [id number] [place] [address] Jun, [facility] [place] [facility] [address] [id number] [place] [address] 17 Jun, 2013 [facility] [place] [facility] [address] [id number] [place] [address] Jun, [facility] [place] [facility] [address] [id number] [place] [address] 18 May, 2013 [facility] [place] [facility] [address] [id number] [place] [address] May, [facility] [place] [facility] [address] [facility] [id number] [place] [address] May, [facility] [place] [facility] [address] [id number] [place] [address] May, [facility] [place] [facility] [address] [id number] [place] [address] May, [facility] [place] [facility] [address] [id number] [place] [address] May, [facility] [place] [facility] [address] [id number] [place] [address] Apr, [facility] [place] [facility] [address] [id number] [place] [address] Apr, [facility] [address] [id number] [place] [address] Apr, [facility] [place] [facility] [address] [id number] [place] [address] Apr, [facility] [place] [facility] [address] [id number] [place] [address] Apr, [facility] [place] [facility] [address] [id number] [place] [address] Apr, [facility] [address] [id number] [place] [address] Apr, [facility] [place] [facility] [address] [id number] [place] [address] Apr, [facility] [place] [facility] [address] [id number] [place] [address] Apr, [facility] [place] [facility] [address] [id number] [place] [address] Apr, [facility] [place] [facility] [address] [id number] [place] [address] Mar, [facility] [place] [facility] [address] [id number] [place] [address] Mar, [facility] [place] [facility] [address] [id number] [place] [address] Mar, [facility] [place] [facility] [address] [id number], [place] [address] Mar, [facility] [place] [facility] [address] [id number] [place] [address] Mar, [facility] [place] [facility] [address] [id number] [place] [address] Mar, [facility] [place] [facility] [address] [id number] [place] [address] Mar, [facility] [place] [facility] [address] [id number] [place] [address] 09 Mar, 2013 [facility] [address] [id number] [place] [address] Mar, [facility] [place] [facility] [address] [id number] [place] [address] Mar, [facility] [address] [id number] [place] [address] Mar, [facility] [place] [facility] [address] [id number] [place] [address] Feb, [facility] [place] [facility] [address] [id number] [place] [address] Feb, [facility] [place] [facility] [address] [id number] [place] [address] Feb, [facility] [address] [id number] [place] [address] Feb, [facility] [place] [facility] [address] [id number] [place] [address] Feb, [facility] [place] [facility] [address] [id number] [place] [address] Feb, [facility] [place] [facility] [address] [facility] [id number] [place] [address] Feb, [facility] [place] [facility] [address] [id number] [place] [address] Feb, [facility] [place] [facility] [address] [id number], [place] [address] Feb, [facility] [place] [facility] [address] [id number] [place] [address] Feb, [facility] [place] [facility] [address] [id number] [place] [address] Feb, [facility] [place] [facility] [address] [id number], [place] [address] Feb, [facility] [place] [facility] [address] [id number] [place] [address] Jan, [facility] [facility] [address] [id number] [place] [address] Jan, [facility] [place] [facility] [address] [id number] [place] [address] Jan, [facility] [place] [facility] [address] [id number] [place] [address] Jan, [facility] [place] [facility] [address] [id number] [place] [address] Jan, [facility] [place] [facility] [address] [id number] [place] [address] 4268 Jan, [facility] [place] [facility] [address] [id number] [place] [address] 6[address] Jan, [facility] [place] [facility] [address] [id number] [place] [address] 8430 Jan, [facility] [place] [facility] [address] [id number] [place] [address] 67[address] Jan, [facility] [place] [facility] [address] [id number] [place] [address] 2427 27 Dec, 2012 [facility] [place] [facility] [address] [id number] [place] [address] 7925 18 Dec, 2012 [facility] [place] [facility] [address] [id number], [place] [address] 17 Dec, 2012 [facility] [place] [facility] [address] [id number] [place] [address]- [address]759 11 Dec, 2012 [facility] [place] [facility] [address] [id number] [place] [address]- 7564 05 Dec, 2012 [facility] [place] [facility] [address] [id number] [place] [address]- 7849 19 Nov, 2012 [facility] [place] [facility] [address] [id number] [place] [address] 2546 Nov, [facility] [place] [facility] [address] [id number] [place] [address]40 Oct, [facility] [place] [facility] [address] [id number] [place] [address] Oct, [facility] [place] [facility] [address] [id number] [place] [address]- 2374 Oct, [facility] [place] [facility] [address] [id number] [place] [address]- 6368 Oct, [facility] [place] [address] [id number] [place] [address] 1404 Oct, [facility] [place] [facility] [address] [id number] [place] [address] 6897 Oct, [facility] [place] [facility] [address] [id number] [place] [address]- 2603 Sep, [facility] [address] [id number] [place] [address]- 8859 Sep, [facility] [address] [id number] [place] [address]- 8987 Sep, [facility] [address] [id number] [place] [address]- 9270 Sep, [facility] [place] [address] [id number] [place] [address]- 7597 Sep, [facility] [address] [id number] [place] [address]- 0433 Sep, [facility] [facility] [address] [id number] [place] [address] 8704 Sep, [facility] [address] [id number] [place] [address]- 8373 August, [facility] [address] [id number] [place] [address] 5795 August, [facility] [place] [facility] [address] [id number] [place] [address] 2546 August, [facility] [address] [id number] [place] [address] 7256 August, [facility] [address] [id number] [place] [address] 2546 August, [facility] [address] [id number] [place] [address]116 August, [facility] [address] [id number] [place] [address] 6521 Jul, [facility] [address] [id number] [place] [address] 9651 Jul, [facility] [address] [id number] [place] [address] 5970 Jul, [facility] [address] [id number] [place] [address] 5051 Jul, [facility] [address] [id number] [place] [address] 2988 Jul, [facility] [address] [id number] [place] [address] 1261 Jul, [facility] [address] [id number] [place] [address] 1981 Jun, [facility] [address] [id number] [place] [address] 8258 Jun, [facility] [address] [id number] [place] [address]- 2546 Jun, [facility] [address] [id number] [place] [address] 2654 Jun, [facility] [address] [id number] [place] [address]- 2546 Jun, [facility] [address] [id number] [place] [address]- 4476 Jun, [facility] [address] [id number] [place] [address] 5063 May, [facility] [address] [id number] [place] [address]- 0963 May, [facility] [address] [id number] [place] [address]- 3118 May, [facility] [address] [id number] [place] [address]- 5665 May, [facility] [address] [id number] [place] [address]- 9958 Apr, [facility] [address] [id number] [place] [address]- 5334 Apr, [facility] [address] [id number] [place] [address]- 5867 Apr, [facility] [address] [id number] [place] [address]- 0044 Apr, [facility] [address] [id number] [place] [address]- 7321 Apr, [facility] [address] [id number] [place] [address]- 4476 Apr, [facility] [address] [id number], [place] [address] 4418 Apr, [facility] [address] [id number], [place] [address] 7700 Apr, [facility] [address] [id number] [place] [address]- 9978 Apr, [facility] [address] [id number] [place] [address]- 4165 Mar, [facility] [address] [id number] [place] [address]- 5612 Mar, [facility] [address] [id number] [place] [address]- 2558 12 Mar, 2012 [facility] [address] [id number] [place] [address]- 2026 12 Mar, 2012 [facility] [address] [id number] [place] [address]- 0366 Mar, [facility] [address] [id number] [place] [address]- 0626 Mar, [facility] [address] [id number] [place] [address]- 6496 Mar, [facility] [address] [id number] [place] [address]- 1292 05 Mar, 2012 [facility] [address] [id number] [place] [address]- 5611 Mar, [facility] [address] [facility] [id number] [place] [address]- 0660 Mar, [facility] [address] [id number] [place] [address]- 4245 Feb, [facility] [address] [id number] [place] [address]- 1703 27 Feb, 2012 [facility] [address] [facility] [id number] [place] [address]- 8519 Feb, [facility] [address] [id number] [place] [address]- 5266 26 Feb, 2012 [facility] [address] [id number], [place] [address]- 6570 15 Feb, 2012 [facility] [address] [id number] [place] [address]- 6616 15 Feb, 2012 [facility] [address] [facility] [id number] [place] [address]- 3852 14 Feb, 2012 [facility] [address] [id number] [place] [address]- 9914 29 Jan, 2012 [facility] [address] [id number] [place] [address]- 1606 Jan, [facility] [address] [id number] [place] [address]- 8882 Jan, [facility] [address] [id number] [place] [address] 1933 Jan, [facility] [address] [id number] [place] [address]- 5288 Jan, [facility] [address] [id number] [place] [address]- 6428 Jan, [facility] [address] [id number] [place] [address]- 6213 Jan, [facility] [address] [id number] [place] [address]- 3375 Jan, [facility] [address] [id number] [place] [address]- 1065 Jan, [facility] [address] [id number] [place] [address]- 6710 Jan, [facility] [address] [id number] [place] [address]- 3430 27 Dec, 2011 [facility] [address] [id number] [place] [address]- 1540 20 Sep, 2011 [facility] [address] [id number], [place] [address]- 0210 17 Sep, 2011 [facility] [address] [id number] [place] [address]- 5124 06 Sep, 2011 [facility] [address] [id number] [place] [address]- 0866 05 Sep, 2011 [facility] [address] [id number] [place] [address]- 1423 02 Sep, 2011 [facility] [address] [id number] [place] [address]- 2546 Nov, [facility] [address] [id number] [place] [address]- 1096 Nov, [facility] [address] [id number] [place] [address] Nov, [facility] [address] [id number] [place] [address]- 4276 Nov, [facility] [address] [id number] [place] [address]- 8594 Oct, [facility] [address] [id number] [place] [address]- 3383 Oct, [facility] [address] [id number] [place] [address]- 6020 Oct, [facility] [address] [id number] [place] [address]- 3889 Oct, [facility] [facility] [address] [id number] [place] [address]- 5949 Oct, [facility] [address] [id number] [place] [address]- 9948 Oct, [facility] [address] [id number] [place] [address]- 9120 Oct, [facility] [place] [facility] [address] [id number] [place] [address]- 9381 Oct, [facility] [place] [facility] [address] [id number] [place] [address]- 0449 Sep, [facility] [address] [id number] [place] [address]- 1187 Sep, [facility] [place] [facility] [address] [id number] [place] [address]- 1361 Sep, [facility] [address] [id number] [place] [address]- 2379 Sep, [facility] [id number], [place] [address] August, [facility] [id number], [place] [address]- [address]46 August, [facility] [id number], [place] [address] 2546 Jul, [facility] [id number], [place] [address]- 2170 Jun, [facility] [id number], [place] [address]- 2457 Jun, [facility] [id number] [place] [address]- 2895 Jun, [facility] [id number] [place] [address] 245985- 5516 Jun, [facility] [id number] [place] [address]- 2894 Jun, [facility] [id number], [place] [address]- 5324 Jun, [facility] [address] [id number], [place] [address]- 8526 Jun, [facility] [id number], [place] [address]- 5346 Jun, [facility] [id number], [place] [address] May, [facility] [address] [id number], [place] [address]- 7943 May, [facility] [address] [id number], [place] [address]- 8146 Mar, IMMUNIZATIONS No Known Immunizations SOCIAL HISTORY Never Assessed REASON FOR VISIT MS contin, Hydrocodone- 02/12 PLAN OF CARE VITAL SIGNS MEDICATIONS Medication Instructions Dosage Frequency Start Date End Date Duration Status Hydrocodone-Acetaminophen 10-325 MG Orally every 4 hours 1 tablet 4h Jan 28 days Active MS Contin 60 mg Orally every 12 hrs 1 tablet 12h 16 Jan, 2017 28 days Active RESULTS No Results PROCEDURES [...]
--- OUTSIDE RECORDS SUMMARY | 2018-06-11 16:16 | XMS REPORT ---
Author Author SARA CONROY Organization [employer] Address Unknown Phone Unavailable Care Team Providers Care Ocular Care Aide Name Role Phone SARA CONROY CP Unavailable Allergies No Known Allergies Problems Problem Type Condition Code Onset Dates Condition Status Problem Back pain M54.9 Active Problem Reflux esophagitis 530.11 Active Problem Chronic obstructive pulmonary disease, unspecified J44.9 Active Problem Depressive disorder, not elsewhere classified 311 Active Medications Medication Code System Code Instructions Start Date End Date Status Dosage MS Contin [facility] [address]-30 60 MG Orally every 12 hrs July 06, 2014 1 tablet by Oral route every 12 hours 28 day supply Hydrocodone-Acetaminophen [facility] [address]-23 10-325 MG Orally every June 1 tablet by Oral route every 4 hours PRN 28 day supply Results No Known Results Summary Purpose [employer] Submission
--- OUTSIDE RECORDS SUMMARY | 2018-06-11 16:16 | XMS REPORT ---
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 Active Problem Depressive disorder, not elsewhere classified 311 Active Problem Back pain M54.9 Active Problem Back pain 724.5 Active Problem COPD (chronic obstructive pulmonary disease) J44.9 Active Problem Other chronic pain 338.29 Active Problem Essential and other specified forms of tremor 333.1 Active Problem Reflux esophagitis 530.11 Active Problem Dyspepsia and other specified disorders of function of stomach 536.8 Active Medications Medication Code System Code Instructions Start Date End Date Status Dosage Benadryl [facility] 2001 [address]-04 25 MG Orally every 6 hrs Apr 12, 2015 1 capsule as needed Results No Known Results Summary Purpose [employer] Submission
--- OUTSIDE RECORDS SUMMARY | 2018-06-11 16:16 | XMS REPORT ---
Author Author JESUS FIELDS Organization [facility] Address [address] [place] [address] Care Team Providers Care Supervisor Print Line Name Role Phone JESUS FIELDS Unavailable PROBLEMS Type Condition ICD9-CM Code WSI48-UX Code Onset Dates Condition Status SNOMED Code Problem Chronic pain syndrome G89.4 Active 800479872 Problem Low serum testosterone E29.1 Active 107546783 Problem Back pain M54.9 Active 245812550 Problem Essential hypertension I10 Active 35727514 Problem Chronic obstructive pulmonary disease, unspecified J44.9 Active 42304076 ALLERGIES No Information ENCOUNTERS Encounter Location Date Diagnosis [place] [id number] [place] [address] 36546- 0768 Jul, [place] [id number] [place] [address] 68771- 9683 Jul, Medicare annual wellness visit, initial Z00.00 ; Chronic obstructive pulmonary disease, unspecified J44.9 ; Back pain M54.9 ; Chronic pain syndrome G89.4 ; Essential hypertension I10 ; Low serum testosterone E29.1 ; Smoking history Z87.891 and Encounter for immunization Z23 [place] [id number] [place] [address] 79245- 5299 Jul, [place] [id number] [place] [address] 42697- 0439 Jun, Back pain M54.9 [place] [id number] [place] [address] 55274- 9470 28 May, 2017 Back pain M54.9 [place] [id number] [place] [address] 16298- 0083 13 May, 2017 Exposure to the flu Z20.828 [place] [id number] [place] [address] 71078- 8696 May, Chronic pain syndrome G89.4 ; Back pain M54.9 and Chronic obstructive pulmonary disease, unspecified J44.9 [facility] [id number] [place] [address] 71058- 6035 May, Back pain M54.9 [facility] [address] 16423- 7267 Apr, Back pain M54.9 [facility] [id number] [place] [address] 47761- 3751 Mar, Back pain M54.9 [facility] [id number] [place] [address] 75723- 8646 Feb, Back pain M54.9 [facility] [id number] [place] [address] 18818- 8722 Jan, Back pain M54.9 [facility] [id number] [place] [address] 96180- 6990 Dec, Chronic obstructive pulmonary disease, unspecified J44.9 and Back pain M54.9 [facility] [id number] [place] [address] 34285- 4199 Dec, Back pain M54.9 [facility] [id number] [place] [address] 13796- 7444 Nov, Back pain M54.9 [facility] [id number] [place] [address] 83541- 0996 Oct, Essential hypertension I10 [facility] [address] 20426- 3516 Oct, Back pain M54.9 [facility] [id number] [place] [address] 11186- 7548 Oct, [facility] [id number] [place] [address] 31230- 7320 Oct, [facility] [id number] [place] [address] 29344- 2906 Sep, Back pain M54.9 [facility] [id number] [place] [address] 467250- 9834 August, [facility] [id number] [place] [address] 46368- 1260 August, Essential hypertension I10 [facility] [id number] [place] [address] 22320- 4054 August, Other dorsalgia M54.89 [facility] [id number] [place] [address] 43771- 8672 August, Back pain M54.9 ; Chronic obstructive pulmonary disease, unspecified J44.9 and Low serum testosterone E29.1 [facility] [id number] [place] [address] 64549- 6928 Jul, Other dorsalgia M54.89 [facility] [id number] [place] [address] 14536- 5383 Jun, Dorsalgia, unspecified M54.9 [facility] [id number] [place] [address] 57126- 0838 Jun, Dorsalgia, unspecified M54.9 [facility] [id number] [place] [address] 52679- 4645 Jun, [facility] [id number] [place] [address] 14119- 4984 Jun, Chronic obstructive pulmonary disease, unspecified J44.9 [facility] [id number] [place] [address] 20776- 7496 Jun, Back pain M54.9 [facility] [id number] [place] [address] 06077- 6390 May, Chronic obstructive pulmonary disease, unspecified J44.9 [facility] [id number] [place] [address] 94816- 0236 May, [facility] [address] 36657- 6916 May, Other dorsalgia M54.89 [facility] [id number] [place] [address] 53271- 9229 Apr, [facility] [address] 60507- 7707 Apr, Other dorsalgia M54.89 [facility] [id number] [place] [address] 36704- 6332 Mar, Chronic obstructive pulmonary disease, unspecified J44.9 ; Essential hypertension I10 and Back pain M54.9 [facility] [address] 09834- 6136 Mar, [facility] [address] 61041- 5447 Mar, Dorsalgia, unspecified M54.9 [facility] [id number] [place] [address] 36740- 4669 Mar, Edema R60.9 [facility] [id number] [place] [address] 29932- 3019 Feb, [facility] [id number] [place] [address] 57748- 6649 Feb, Other dorsalgia M54.89 [facility] [id number] [place] [address] 18685- 8057 Jan, Encounter for immunization Z23 and Chronic obstructive pulmonary disease, unspecified J44.9 [facility] [id number] [place] [address] 46471- 2453 Jan, [facility] [id number] [place] [address] 37761- 3195 14 Dec, 2015 [facility] [address] [place] [address]- 4368 Dec, [facility] [address] [id number] [place] [address]- 4383 Dec, Essential hypertension I10 and Back pain M54.9 [facility] [address] [id number] [place] [address]- 9056 Nov, [facility] [address] [facility] [id number] [place] [address]- 8087 Nov, [facility] [address] [id number] [place] [address]- 7322 Oct, Other dorsalgia M54.89 [facility] [address] [facility] [id number] [place] [address]- 4973 Oct, [facility] [address] [facility] [id number] [place] [address]- 5974 Sep, [facility] [address] [facility] [id number], [place] [address]- 2614 Sep, [facility] [address] [facility] [id number] [place] [address]- 5562 Sep, [facility] [id number] [address]- 8542 August, [facility] [address] [facility] [id number] [place] [address]- 8813 August, Other dorsalgia M54.89 [facility] [address] [facility] [id number], [place] [address]- 2729 August, [facility] [address] [facility] [id number] [place] [address]- 1867 August, Chronic obstructive pulmonary disease, unspecified J44.9 and Back pain M54.9 [facility] [address] [id number], [place] [address]- 4638 August, [facility] [id number] [address]- 6846 August, [facility] [id number] [place] [address] 65389- 2520 August, Chronic obstructive pulmonary disease, unspecified J44.9 [facility] [id number] [place] [address] 37372- 6036 Jul, Other dorsalgia M54.89 [facility] [id number] [place] [address] 67750- 9482 Jul, Insomnia G47.00 [facility] [id number] [place] [address] 12258- 7772 Jun, Other dorsalgia M54.89 [facility] [id number] [place] [address] 72293- 4092 Jun, Other dorsalgia M54.89 [facility] [id number] [place] [address] 01235- 7601 May, COPD (chronic obstructive pulmonary disease) J44.9 and Bronchitis J40 [facility] [id number] [place] [address] 84704- 7400 May, Chronic obstructive pulmonary disease, unspecified J44.9 [facility] [id number] [place] [address] 76007- 5634 May, [facility] [id number] [place] [address] 91097- 4254 May, Other dorsalgia M54.89 [facility] [id number] [place] [address] 44108- 3441 Apr, Chronic obstructive pulmonary disease, unspecified J44.9 [facility] [id number] [place] [address] 57223- 1796 Apr, [facility] [id number] [place] [address] 47665- 3489 14 Mar, 2015 [facility] [address] 40183- 7374 14 Mar, 2015 COPD (chronic obstructive pulmonary disease) J44.9 ; Back pain M54.9 and Edema R60.9 [facility] [id number] [place] [address] 21640- 5716 Mar, [facility] [id number] [place] [address] 36960- 1369 Mar, [facility] [id number] [place] [address] 07887- 6662 Feb, [facility] [id number] [place] [address] 21469- 0668 Feb, [facility] [id number] [place] [address] 21620- 7754 Feb, [facility] [id number] [place] [address] 45094- 7869 Jan, [facility] [id number] [place] [address] 41535- 9898 Jan, [facility] [id number] [place] [address] 15904- 1387 Jan, [facility] [id number] [place] [address] 97570- 8632 Dec, Chronic airway obstruction, not elsewhere classified 496 ; Back pain 724.5 ; Flu vaccine need V04.81 and Prophylactic vaccination against streptococcus pneumoniae and influenza V06.6 [facility] [address], [place] [address]- 9748 Dec, [facility] [id number] [place] [address] 39284- 9992 Dec, [facility] [id number] [place] [address] 23525- 0737 Dec, [facility] [id number] [place] [address] 05947- 1062 Nov, [facility] [id number] [place] [address] [place] [address]- 8138 Nov, [facility] [address] [facility] [id number] 4039 Nov, [facility] [address], [place] [address]- 5380 Oct, [facility] [id number] 0302 Oct, [facility] [id number] [address]- 3883 Oct, Unspecified arthropathy, 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 and Chronic airway obstruction, not elsewhere classified 496 [facility] [id number], [place] [address]- 4597 Oct, [facility] [id number], [place] [address]- 2032 Sep, [facility] [id number], [place] [address]- 6710 Sep, [facility] [id number], [place] [address]- 7271 Sep, [facility] [id number], [place] [address]- 3065 August, [facility] [id number], [place] [address]- 8273 August, [facility] [id number], [place] [address]- 9009 August, [facility] [id number], [place] [address]- 5751 August, [facility] [id number] 7051 August, [facility] [place] [facility] [id number] [address]- 0323 Jul, [facility] [id number] [place] [address]- 3124 Jul, [facility] [place] [facility] [address] [id number] [place] [address]- 0484 Jun, [facility] [place] [facility] [address] [id number] [place] [address]- 2965 Jun, [facility] [place] [facility] [address] [facility] [id number] [place] [address]- 5888 Jun, [facility] [place] [facility] [address] [id number] [place] [address] 2547 Jun, [facility] [place] [facility] [address] [id number] [place] [address]- 8755 Jun, [facility] [place] [facility] [address] [facility] [id number] [place] [address] 2542 Jun, [facility] [place] [facility] [address] [facility] [id number] [place] [address]- 1580 May, [facility] [place] [facility] [address] [id number] [place] [address]- 5701 May, [facility] [place] [facility] [address] [facility] [id number] [place] [address]- 2606 May, [facility] [place] [facility] [address] [facility] [id number] [place] [address]- 4030 May, [facility] [place] [facility] [address] [facility] [id number] [place] [address]- 7564 May, [facility] [place] [facility] [address] [id number] [place] [address]- 0450 Apr, [facility] [place] [facility] [address] [id number] [place] [address]- 5624 Apr, [facility] [place] [facility] [address] [facility] [id number] [place] [address]- 4089 Apr, [facility] [place] [facility] [address] [facility] [id number] [place] [address]- 6309 Apr, [facility] [place] [facility] [address] [id number] [place] [address]- 1472 Apr, [facility] [place] [facility] [address] [id number] [place] [address]- 3176 Apr, [facility] [place] [facility] [address] [id number] [place] 8130 Apr, [facility] [place] [facility] [address] [id number] [place] [address]- 8656 Mar, [facility] [place] [facility] [address] [id number] [place] [address]- 3648 Mar, [facility] [place] [facility] [address] [id number] [place] [address]- 8450 Mar, [facility] [place] [facility] [address] [id number] [place] [address]- 0600 Mar, [facility] [place] [facility] [address] [id number] [place] [address]- 7425 Mar, [facility] [place] [facility] [address] [id number] [place] [address]- 8035 Mar, [facility] [place] [facility] [address] [id number] [place] [address]- 7236 Mar, [facility] [place] [facility] [address] [id number] [place] [address]- 1394 Mar, [facility] [place] [facility] [address] [id number] [place] [address]- 1967 Mar, [facility] [place] [facility] [address] [id number] [place] [address]- 5992 Mar, [facility] [place] [facility] [address] [id number] [place] [address]- 4516 Feb, [facility] [place] [facility] [address] [id number] [place] [address]- 7064 Feb, [facility] [place] [facility] [address] [id number], [place] [address]- 8879 20 Jan, 2014 [facility] [place] [facility] [address] [id number] [place] [address]- 7832 20 Jan, 2014 [facility] [place] [facility] [address] [id number] [place] [address]- 8976 14 Jan, 2014 [facility] [place] [facility] [address] [id number] [place] [address]- 9304 14 Jan, 2014 [facility] [place] [facility] [address] [id number] [place] [address]- 1066 14 Jan, 2014 [facility] [place] [facility] [address] [id number] [place] [address]- 9626 14 Jan, 2014 [facility] [place] [facility] [address] [id number] [place] [address]- 8190 Jan, [facility] [place] [facility] [address] [id number] [place] [address]- 9970 Jan, [facility] [place] [facility] [address] [id number] [place] [address]- 4403 09 Jan, 2014 [facility] [place] [facility] [address] [id number] [place] [address]- 3300 09 Jan, 2014 [facility] [place] [facility] [address] [facility] [id number] [place] [address]- 0968 08 Jan, 2014 [facility] [place] [facility] [address] [id number], [place] [address]- 4493 Jan, [facility] [place] [facility] [address] [id number], [place] [address]- 3961 Dec, [facility] [place] [facility] [address] [id number] [place] [address]- 0858 Dec, [facility] [place] [facility] [address] [facility] [id number] [place] [address]- 5053 Dec, [facility] [place] [facility] [address] [id number] [place] [address]- 0768 Dec, 2013 [facility] [place] [facility] [address] [id number] [place] [address]- 8341 Dec, [facility] [place] [facility] [address] [id number] [place] [address]- 3195 Nov, [facility] [place] [facility] [address] [id number] [place] [address]- 9307 Nov, [facility] [place] [facility] [address] [id number] [place] [address]- 5411 Nov, [facility] [place] [facility] [address] [id number] [place] [address]- 8803 Nov, [facility] [place] [facility] [address] [id number] [place] [address]- 6430 Oct, [facility] [place] [facility] [address] [id number] [place] [address]- 9879 Oct, [facility] [place] [facility] [address] [id number] [place] [address]- 2907 Oct, [facility] [place] [facility] [address] [id number] [place] [address]- 1768 Oct, [facility] [place] [facility] [address] [id number] [place] [address]- 7180 Oct, [facility] [place] [facility] [address] [id number] [place] [address]- 4813 Oct, [facility] [place] [facility] [address] [id number] [place] [address]- 5628 Oct, [facility] [place] [facility] [address] [id number] [place] [address]- 6335 Oct, [facility] [place] [facility] [address] [id number] [place] [address]- 4795 Oct, [facility] [place] [facility] [address] [id number] [place] [address]- 3306 Oct, [facility] [place] [facility] [address] [id number] [place] [address]- 6493 Sep, [facility] [place] [facility] [address] [id number] [place] [address]- 4785 Sep, [facility] [place] [facility] [address] [id number] [place] [address]- 1445 Sep, [facility] [place] [facility] [address] [id number] [place] [address]- 7370 Sep, [facility] [place] [facility] [address] [id number] [place] [address] Sep, [facility] [place] [facility] [address] [id number] [place] [address] Sep, [facility] [place] [facility] [address] [id number] [place] [address] August, [facility] [place] [facility] [address] [id number] [place] [address] August, [facility] [place] [facility] [address] [id number] [place] [address] August, [facility] [place] [facility] [address] [id number] [place] [address] August, [facility] [place] [facility] [address] [id number] [place] [address] August, [facility] [place] [facility] [address] [id number] [place] [address] August, [facility] [place] [facility] [address] [id number], [place] [address] Jul, [facility] [place] [facility] [address] [id number] [place] [address] Jul, [facility] [place] [facility] [address] [id number] [place] [address] Jul, [facility] [place] [facility] [address] [id number] [place] [address] Jul, [facility] [place] [facility] [address] [id number] [place] [address] 10 Jul, 2013 [facility] [place] [facility] [address] [id number] [place] [address] Jul, [facility] [place] [facility] [address] [id number] [place] [address] Jul, [facility] [place] [facility] [address] [id number] [place] [address] Jul, [facility] [place] [facility] [address] [id number] [place] [address] Jul, [facility] [place] [facility] [address] [id number] [place] [address] Jun, [facility] [place] [facility] [address] [id number] [place] [address] Jun, [facility] [place] [facility] [address] [id number] [place] [address] Jun, [facility] [place] [facility] [address] [id number] [place] [address] May, [facility] [place] [facility] [address] [id number] [place] [address] May, [facility] [place] [facility] [address] [id number] [place] [address] May, [facility] [place] [facility] [address] [id number] [place] [address] May, [facility] [place] [facility] [address] [id number] [place] [address] May, [facility] [place] [facility] [address] [id number] [place] [address] May, [facility] [place] [facility] [address] [id number] [place] [address] Apr, [facility] [place] [facility] [address] [id number] [place] [address] Apr, [facility] [address] [id number] [place] [address] Apr, [facility] [place] [facility] [address] [id number] [place] [address] Apr, [facility] [place] [facility] [address] [id number] [place] [address] Apr, [facility] [place] [facility] [address] [id number] [place] [address] Apr, [facility] [address] [id number] [place] [address] Apr, [facility] [place] [facility] [address] [id number] [place] [address] Apr, [facility] [place] [facility] [address] [id number] [place] [address] Apr, [facility] [place] [facility] [address] [id number] [place] [address] Apr, [facility] [place] [facility] [address] [id number] [place] [address] Mar, [facility] [place] [facility] [address] [id number] [place] [address] Mar, [facility] [place] [facility] [address] [id number] [place] [address] Mar, [facility] [place] [facility] [address] [id number], [place] [address] Mar, [facility] [place] [facility] [address] [id number] [place] [address] Mar, [facility] [place] [facility] [address] [id number] [place] [address] Mar, [facility] [place] [facility] [address] [id number] [place] [address] Mar, [facility] [place] [facility] [address] [id number] [place] [address] Mar, [facility] [address] [id number] [place] [address] Mar, [facility] [place] [facility] [address] [id number] [place] [address]609 Mar, [facility] [place] [facility] [address] [id number] [place] [address] Mar, [facility] [place] [facility] [address] [id number] [place] [address] Feb, [facility] [place] [facility] [address] [id number] [place] [address] 74[address] Feb, [facility] [place] [facility] [address] [id number] [place] [address] Feb, [facility] [place] [facility] [address] [id number] [place] [address] Feb, [facility] [place] [facility] [address] [id number] [place] [address] Feb, [facility] [place] [facility] [address] [id number] [place] [address] Feb, [facility] [place] [facility] [address] [id number] [place] [address] Feb, [facility] [place] [facility] [address] [id number] [place] [address] Feb, [facility] [place] [facility] [address] [id number], [place] [address] Feb, [facility] [place] [facility] [address] [id number] [place] [address] Feb, [facility] [place] [facility] [address] [id number] [place] [address] 265[address] Feb, [facility] [place] [facility] [address] [id number], [place] [address] Feb, [facility] [place] [facility] [address] [id number] [place] [address] 65[address] 28 Jan, 2013 [facility] [place] [facility] [address] [id number] [place] [address] 28 Jan, 2013 [facility] [place] [facility] [address] [id number] [place] [address] Jan, [facility] [place] [facility] [address] [id number] [place] [address] 111[address] Jan, [facility] [place] [facility] [address] [id number] [place] [address] 9[address] Jan, [facility] [place] [facility] [address] [id number] [place] [address] 9429 18 Jan, 2013 [facility] [place] [facility] [address] [id number] [place] [address] 60[address] Jan, [facility] [place] [facility] [address] [id number] [place] [address] 9721 15 Jan, 2013 [facility] [place] [facility] [address] [id number] [place] [address] 275[address] Jan, [facility] [place] [facility] [address] [id number] [place] [address]573 27 Dec, 2012 [facility] [place] [facility] [address] [id number] [place] [address] 7[address] 18 Dec, 2012 [facility] [place] [facility] [address] [id number] [place] [address] 1537 17 Dec, 2012 [facility] [place] [facility] [address] [id number] [place] [address] 0[address] 11 Dec, 2012 [facility] [place] [facility] [address] [id number] [place] [address] 05 Dec, 2012 [facility] [place] [facility] [address] [id number] [place] [address] 19 Nov, 2012 [facility] [place] [facility] [address] [id number] [place] [address] 4077 Nov, [facility] [place] [facility] [address] [id number] [place] [address] 5617 Oct, [facility] [place] [facility] [address] [id number] [place] [address] 4520 Oct, [facility] [place] [facility] [address] [id number] [place] [address] 0319 Oct, [facility] [place] [facility] [address] [id number] [place] [address] 0287 Oct, [facility] [place] [facility] [address] [id number] [place] [address] 0435 Oct, [facility] [place] [facility] [address] [id number] [place] [address] 5[address] Oct, [facility] [place] [facility] [address] [id number] [place] [address] 3244 Sep, [facility] [place] [facility] [address] [id number] [place] [address] 1256 Sep, [facility] [place] [facility] [address] [id number] [place] [address] 5143 Sep, [facility] [place] [facility] [address] [id number] [place] [address] 5518 Sep, [facility] [place] [facility] [address] [id number] [place] [address] 5734 Sep, [facility] [place] [facility] [address] [id number] [place] [address] 8839 Sep, [facility] [place] [facility] [address] [id number] [place] [address] 2507 Sep, [facility] [place] [facility] [address] [id number] [place] [address] 46[address] August, [facility] [place] [facility] [address] [id number] [place] [address] 74[address] August, [facility] [place] [facility] [address] [id number] [place] [address] 7[address] August, [facility] [address] [id number] [place] [address] 2598 August, [facility] [address] [id number] [place] [address] 0241 August, [facility] [address] [id number] [place] [address] 5[address] August, [facility] [address] [id number] [place] [address] 9154 Jul, [facility] [address] [id number] [place] [address] Jul, [facility] [address] [id number] [place] [address] 5277 Jul, [facility] [address] [id number] [place] [address] 1363 Jul, [facility] [address] [id number] [place] [address] 4661 Jul, [facility] [address] [id number] [place] [address] 57[address] Jul, [facility] [address] [id number] [place] [address] Jun, [facility] [address] [id number] [place] [address] 3474 Jun, [facility] [address] [id number] [place] [address] 6136 Jun, [facility] [address] [id number] [place] [address] 8684 Jun, [facility] [address] [id number] [place] [address] 2540 Jun, [facility] [address] [id number] [place] [address] Jun, [facility] [address] [id number] [place] [address] 8439 May, [facility] [address] [id number] [place] [address] 5[address] May, [facility] [address] [id number] [place] [address]- 9678 May, [facility] [address] [id number] [place] [address] 7816 May, [facility] [address] [id number] [place] [address] 8791 Apr, [facility] [address] [id number] [place] [address]- 7985 Apr, [facility] [address] [id number] [place] [address]- 2009 Apr, [facility] [address] [id number] [place] [address] 3595 Apr, [facility] [address] [id number] [place] [address]- 8560 Apr, [facility] [address] [id number] [place] [address]- 6358 Apr, [facility] [address] [id number] [place] [address] 6455 Apr, [facility] [place] [facility] [address] [id number], [place] [address] 4[address] Apr, [facility] [place] [facility] [address] [id number] [place] [address] 8543 Apr, [facility] [place] [facility] [address] [id number] [place] [address]- 7727 Mar, [facility] [place] [facility] [address] [id number] [place] [address]- 7161 Mar, [facility] [place] [facility] [address] [id number] [place] [address]- 9092 12 Mar, 2012 [facility] [place] [facility] [address] [id number] [place] [address]- 4499 12 Mar, 2012 [facility] [place] [facility] [address] [id number] [place] [address] 1816 Mar, [facility] [place] [facility] [address] [id number] [place] [address]- 4246 Mar, [facility] [place] [facility] [address] [id number] [place] [address]- 9946 05 Mar, 2012 [facility] [place] [facility] [address] [id number] [place] [address]- 1050 05 Mar, 2012 [facility] [place] [facility] [address] [id number] [place] [address]- 1533 Mar, [facility] [place] [facility] [address] [id number] [place] [address]- 3768 Mar, [facility] [place] [facility] [address] [id number] [place] [address]- 0810 27 Feb, 2012 [facility] [place] [facility] [address] [id number] [place] [address]- 8631 27 Feb, 2012 [facility] [place] [facility] [address] [id number] [place] [address]- 3804 Feb, [facility] [place] [facility] [address] [id number] [place] [address]- 9644 26 Feb, 2012 [facility] [place] [facility] [address] [id number], [place] [address]- 9370 15 Feb, 2012 [facility] [place] [facility] [address] [id number] [place] [address]- 5480 15 Feb, 2012 [facility] [place] [facility] [address] [id number] [place] [address]- 8794 14 Feb, 2012 [facility] [place] [facility] [address] [id number] [place] [address]- 3737 29 Jan, 2012 [facility] [place] [facility] [address] [id number] [place] [address]- 7071 29 Jan, 2011 [facility] [place] [facility] [address] [id number] [place] [address]- 9280 Jan, 2011 [facility] [place] [facility] [address] [id number] [place] [address]- 5202 29 Jan, 2011 [facility] [place] [facility] [address] [id number] [place] [address]- 2127 Jan, 2011 [facility] [place] [facility] [address] [id number] [place] [address]- 1801 Jan, 2011 [facility] [place] [facility] [address] [id number] [place] [address]- 2686 Jan, [facility] [place] [facility] [address] [id number] [place] [address]- 9733 Jan, [facility] [place] [facility] [address] [id number] [place] [address]- 3020 18 Jan, 2012 [facility] [place] [facility] [address] [id number] [place] [address]- 2404 Jan, [facility] [place] [facility] [address] [id number] [place] [address]- 2118 27 Sep, 2011 [facility] [place] [facility] [address] [id number] [place] [address]- 0609 20 Sep, 2011 [facility] [place] [facility] [address] [id number] [place] [address]- 4579 17 Sep, 2011 [facility] [place] [facility] [address] [id number] [place] [address]- 1971 06 Sep, 2011 [facility] [place] [facility] [address] [id number] [place] [address]- 2542 05 Sep, 2011 [facility] [place] [facility] [address] [id number] [place] [address]- 3280 02 Sep, 2011 [facility] [place] [facility] [address] [id number] [place] [address]- 0199 Nov, [facility] [place] [facility] [address] [id number] [place] [address]- 8932 Nov, [facility] [place] [facility] [address] [id number] [place] [address]- 6459 Nov, [facility] [place] [facility] [address] [id number] [place] [address]- 5575 Nov, [facility] [place] [facility] [address] [id number] [place] [address]- 5822 Oct, [facility] [place] [facility] [address] [id number] [place] [address]- 7651 Oct, [facility] [place] [facility] [address] [id number] [place] [address]- 2939 Oct, [facility] [place] [facility] [address] [id number] [place] [address]- 6350 Oct, [facility] [place] [facility] [address] [id number] [place] [address]- 2712 Oct, [facility] [place] [facility] [address] [id number] [place] [address]- 5283 Oct, [facility] [place] [facility] [address] [id number] [place] [address]- 1163 Oct, [facility] [place] [facility] [address] [id number] [place] [address]- 1617 Oct, [facility] [place] [facility] [address] [id number] [place] [address]- 2629 Sep, [facility] [place] [facility] [address] [id number] [place] [address]- 0921 Sep, [facility] [place] [facility] [address] [id number] [place] [address]- 6772 Sep, [facility] [place] [facility] [address] [id number] [place] [address]- 4652 Sep, [facility] [place] [facility] [id number], [place] [address] 98[address] August, [facility] [id number], [place] [address] 1826 August, [facility] [id number], [place] [address]- 6726 Jul, [facility] [id number], [place] [address]- 4556 Jun, [facility] [id number], [place] [address]- 2631 Jun, [facility] [id number] [place] [address]- 4421 Jun, [facility] [id number] [place] [address]- 0936 Jun, [facility] [id number] [place] [address]- 3577 Jun, [facility] [id number], [place] [address]- 0505 Jun, [facility] [id number], [place] [address]- 5477 Jun, [facility] [id number], [place] [address]- 1794 Jun, [facility] [id number], [place] [address]- 0186 May, [facility] [address] [id number], [place] [address] 8976 May, [facility] [address] [id number], [place] [address] 2496 Mar, IMMUNIZATIONS No Known Immunizations SOCIAL HISTORY Never Assessed REASON FOR VISIT Morphine and Hydrocodone- 01/15 PLAN OF CARE VITAL SIGNS MEDICATIONS Medication Instructions Dosage Frequency Start Date End Date Duration Status Hydrocodone-Acetaminophen 10-325 MG Orally every 4 hours 1 tablet 4h Dec 28 days Active MS Contin 60 mg Orally every 12 hrs 1 tablet 12h 18 Dec, 2016 28 days Active RESULTS No Results PROCEDURES [...] pneumonia 2012 Hospitalization History COPD exacerbation, acute bronchitis-[facility] 06/10/16
--- OUTSIDE RECORDS SUMMARY | 2018-06-11 16:16 | XMS REPORT ---
Author Author SARA CONROY Organization [employer] Address Unknown Phone Unavailable Care Team Providers Care Marketing Strategy Manager Name Role Phone SARA CONROY CP Unavailable [...] specified forms of tremor 333.1 Active Medications No Known Medications Results No Known Results Summary Purpose [employer] Submission
--- OUTSIDE RECORDS SUMMARY | 2018-06-11 16:16 | XMS REPORT ---
Author Author SARA CONROY [facility] Address [address] [place] [address] Care Team Providers Care Accounting Practice Manager Name Role Phone SARA CONROY Unavailable PROBLEMS Type Condition ICD9-CM Code [id number] Code Onset Dates Condition Status SNOMED Code Problem Low serum testosterone E29.1 Active 982451083 Problem Essential hypertension I10 Active 55505154 Problem Chronic obstructive pulmonary disease, unspecified J44.9 Active 73038068 Problem Back pain M54.9 Active 747646596 ALLERGIES Unknown Allergies SOCIAL HISTORY No smoking Hx information available PLAN OF CARE VITAL SIGNS MEDICATIONS Medication Instructions Dosage Frequency Start Date End Date Duration Status Hydrocodone-Acetaminophen 10-325 MG Orally every 4 hours 1 tablet 4h May Active MS Contin 60 MG Orally every 12 hrs 1 tablet by Oral route every 12 hours 28 day supply 12h May, Active RESULTS No Results PROCEDURES No Known procedures IMMUNIZATIONS No Known Immunizations
--- OUTSIDE RECORDS SUMMARY | 2018-06-11 16:16 | XMS REPORT ---
Author Author SARA CONROY [facility] Address [address] [place] [address] Care Team Providers Care Traveling Secretary Name Role Phone SARA CONROY Unavailable PROBLEMS Type Condition ICD9-CM Code [id number] Code Onset Dates Condition Status SNOMED Code Problem Essential hypertension I10 Active 51369468 Problem Chronic obstructive pulmonary disease, unspecified J44.9 Active 20338180 Problem Depressive disorder, not elsewhere classified 311 Active 40951295 Assessment Essential hypertension I10 Dec, Active 99023517 Problem Back pain M54.9 Active 286757410 Problem Reflux esophagitis 530.11 Active 400050706 ALLERGIES Substance Reaction Event Type Date Status Tramadol HCl itching Drug Allergy Dec, Active Soma Makes pt mean Drug Allergy Dec, Active Boniva rash Drug Allergy Dec, Active Fentanyl Patches Unknown Non Drug Allergy Dec, Active SOCIAL HISTORY No smoking Hx information available PLAN OF CARE VITAL SIGNS Height 68 in 2016-01-11 Weight 205 lbs 2016-01-11 Heart Rate 92 bpm 2016-01-11 Respiratory Rate 28 2016-01-11 BMI 31.17 kg/m2 2016-01-11 Blood pressure systolic 150 mmHg 2016-01-11 Blood pressure diastolic 90 mmHg 2016-01-11 MEDICATIONS Medication Instructions Dosage Frequency Start Date End Date Duration Status Benazepril HCl 20 MG TAKE ONE TABLET BY MOUTH DAILY 30 Active Aciphex 40 mg Orally Twice a day 1 tablet 12h Active Zolpidem Tartrate 5 MG Orally Once a day TAKE ONE TABLET BY MOUTH ONCE DAILY NEEDED 24h Active Proventil HFA 108 (90 Base) MCG/ACT Inhalation every 4 hrs 2 puffs as needed 4h Active Promethazine HCl 25 MG Orally every 12 hrs 1 tablet as needed 12h 30 Active Hydrocodone-Acetaminophen 10-325 MG Orally every 4 hours 1 tablet 4h Jun Active Oxygen 6 inhalations all the time Active Excedrin Sinus Headache Active Omeprazole 20 MG TAKE ONE CAPSULE BY MOUTH DAILY 30 Active MS Contin 60 MG Orally every 12 hrs 1 tablet by Oral route every 12 hours 28 day supply 12h 09 Jun, 2014 Active Citalopram Hydrobromide 20 MG TAKE ONE TABLET BY MOUTH ONCE DAILY 30 Active Breo Ellipta 100-25 MCG/INH INHALE ONE PUFF BY MOUTH ONCE DAILY 30 Active Albuterol Sulfate (2.5 MG/3ML) 0.083% Inhalation 4 times a day for cough and wheezing 3 ml as needed Active Incruse Ellipta 62.5 MCG/INH Inhalation Once a day 1 puff 24h 30 Active Mucus Relief 400 MG TAKE ONE TABLET BY MOUTH EVERY 4 HOURS NEEDED WITH A FULL GLASS OF WATER 30 Active AndroGel Pump 20.25 MG/ACT (1.62%) Transdermal Once a day APPLY ONE PUMP ( 20.25MG) TO ONE UPPER ARM AND SHOULDER ONCE DAILY 24h Active Spiriva HandiHaler 18 MCG Inhalation Once a day 1 capsule 24h 30 Active Mens Multi Vitamin & Mineral Active Benadryl 25 MG Orally every 6 hrs 1 capsule as needed 6h 14 Mar, 2015 Active Baclofen 10 MG TAKE ONE TABLET BY MOUTH THREE TIMES DAILY NEEDED 30 Active RESULTS No Results PROCEDURES Procedure Date Ordered Related Diagnosis Body Site [facility] VISIT ESTABLISHED PATIENT Jan 11, 2016 Office Visit, Est Pt., Level 2 Jan 11, 2016 IMMUNIZATIONS No Known Immunizations
--- OUTSIDE RECORDS SUMMARY | 2018-06-11 16:16 | XMS REPORT ---
Author Author SARA CONROY [facility] [employer] Address Unknown Phone Unavailable Care Team Providers Care Electrical Equipment Technician Name Role Phone SARA CONROY CP Unavailable [...] Instructions Start Date End Date Status Dosage Breo Ellipta [facility] [address]-62 100-25 MCG/INH Inhalation Once a day September 1 puff Promethazine HCl [facility] [address]-90 25 MG Orally every 12 hrs September 01, 2014 1 tablet as needed Results No Known Results Summary Purpose [employer] Submission
--- OUTSIDE RECORDS SUMMARY | 2018-06-11 16:16 | XMS REPORT ---
Author Author SARA CONROY [facility] Address [address] [place] [address] Care Team Providers Care Offender Employment Specialist Name Role Phone SARA CONROY Unavailable PROBLEMS Type Condition ICD9-CM Code [id number] Code Onset Dates Condition Status SNOMED Code Problem Low serum testosterone E29.1 Active 036743067 Problem Essential hypertension I10 Active 03715258 Problem Chronic obstructive pulmonary disease, unspecified J44.9 Active 76483719 Problem Back pain M54.9 Active 058023072 ALLERGIES Substance Reaction Event Type Date Status Tramadol HCl itching Drug Allergy Mar, Active Soma Makes pt mean Drug Allergy Mar, Active Boniva rash Drug Allergy Mar, Active Fentanyl Patches Unknown Non Drug Allergy Mar, Active SOCIAL HISTORY No smoking Hx information available PLAN OF CARE Activity Details Follow Up 3 Months Reason: VITAL SIGNS Height 68 in 2016-04-18 Weight 208.2 lbs 2016-04-18 Temperature 99.2 degrees Fahrenheit 2016-04-18 Heart Rate 86 bpm 2016-04-18 Respiratory Rate 18 2016-04-18 BMI 31.65 kg/m2 2016-04-18 Blood pressure systolic 130 mmHg 2016-04-18 Blood pressure diastolic 76 mmHg 2016-04-18 MEDICATIONS Medication Instructions Dosage Frequency Start Date End Date Duration Status Citalopram Hydrobromide 20 MG TAKE ONE TABLET BY MOUTH ONCE DAILY 30 Active Excedrin Sinus Headache Active Promethazine HCl 25 MG Orally every 12 hrs 1 tablet as needed 12h 30 Active Breo Ellipta 100-25 MCG/INH INHALE ONE PUFF BY MOUTH ONCE DAILY 30 Active Baclofen 10 MG TAKE ONE TABLET BY MOUTH THREE TIMES DAILY NEEDED 30 Active AndroGel Pump 20.25 MG/ACT (1.62%) Transdermal Once a day APPLY ONE PUMP ( 20.25MG) TO ONE UPPER ARM AND SHOULDER ONCE DAILY 24h Active Oxygen 6 inhalations all the time Active Lasix 20 mg Orally Once a day, PRN 1 tablet Mar, Active Hydrocodone-Acetaminophen 10-325 MG Orally every 4 hours 1 tablet 4h Jun Active Incruse Ellipta 62.5 MCG/INH INHALE ONE PUFF BY MOUTH ONCE DAILY 30 Active Omeprazole 20 MG TAKE ONE CAPSULE BY MOUTH ONCE DAILY 30 Active Benazepril HCl 20 MG TAKE ONE TABLET BY MOUTH DAILY 30 Active Aciphex 40 mg Orally Twice a day 1 tablet 12h Active Proventil HFA 108 (90 Base) MCG/ACT Inhalation every 4 hrs 2 puffs as needed 4h Active Mucus Relief 400 MG TAKE ONE TABLET BY MOUTH EVERY 4 HOURS NEEDED WITH A FULL GLASS OF WATER 30 Active Zolpidem Tartrate 5 MG Orally Once a day TAKE ONE TABLET BY MOUTH ONCE DAILY NEEDED 24h Active Klor-Con M10 10 MEQ Orally, with lasix Once a day, Prn 1 tablet with food Mar, Active Mens Multi Vitamin & Mineral Active MS Contin 60 MG Orally every 12 hrs 1 tablet by Oral route every 12 hours 28 day supply 12h Jun, Active RESULTS Name Result Date Reference Range [facility] 2016-04-18 Glucose, Serum 112 65-99 BUN 16 6-24 Creatinine, Serum 0.94 0.76-1.27 eGFR If NonAfricn Am 90 >59 eGFR If Africn Am 104 >59 BUN/Creatinine Ratio 17 9-20 Sodium, Serum 140 134-144 Potassium, Serum 5.6 3.5-5.2 Chloride, Serum 94 96-106 Carbon Dioxide, Total 27 18-29 Calcium, Serum 9.4 8.7-10.2 Protein, Total, Serum 7.4 6.0-8.5 Albumin, Serum 4.3 3.5-5.5 Globulin, Total 3.1 1.5-4.5 A/G Ratio 1.4 1.1-2.5 Bilirubin, Total 0.2 0.0-1.2 Alkaline Phosphatase, S 87 39-117 AST (SGOT) 32 0-40 ALT (SGPT) 25 0-44 PROCEDURES Procedure Date Ordered Related Diagnosis Body Site LAB [facility] Apr 18, 2016 [facility] VISIT ESTABLISHED PATIENT Apr 18, 2016 VENIPUNCT, ROUTINE* Apr 18, 2016 Office Visit, Est Pt., Level 3 Apr 18, 2016 IMMUNIZATIONS No Known Immunizations
--- OUTSIDE RECORDS SUMMARY | 2018-06-11 16:17 | XMS REPORT ---
Author Author SARA CONROY [facility] Address [address] [place] [address] Care Team Providers Care Windows Technical Specialist Name Role Phone SARA CONROY Unavailable PROBLEMS Type Condition ICD9-CM Code [id number] Code Onset Dates Condition Status SNOMED Code Problem Low serum testosterone E29.1 Active 600802001 Problem Essential hypertension I10 Active 63851898 Problem Chronic obstructive pulmonary disease, unspecified J44.9 Active 37052575 Problem Back pain M54.9 Active 801787245 ALLERGIES No Information SOCIAL HISTORY Never Assessed PLAN OF CARE VITAL SIGNS MEDICATIONS No Known Medications RESULTS No Results PROCEDURES No Known procedures IMMUNIZATIONS No Known Immunizations MEDICAL (GENERAL) HISTORY Type Description Date Medical [...] pneumonia 2012 Hospitalization History COPD exacerbation, acute bronchitis-[facility] 06/10/16
--- OUTSIDE RECORDS SUMMARY | 2018-06-11 16:17 | XMS REPORT ---
Author SARA Rodriguez [facility] eClinicalWorks Address Unknown Phone Unavailable Care Team Providers Care Nurse'S Assistant Name Role Phone SARA CONROY CP Unavailable Allergies, Adverse Reactions, Alerts Substance Reaction Event Type Tramadol HCl itching Drug Allergy Soma Makes pt mean Drug Allergy Boniva rash Drug Allergy Fentanyl Patches Info Not Available Non Drug Allergy Problems Problem Type Condition Code Onset Dates Condition Status Problem Chronic obstructive pulmonary disease, unspecified J44.9 Active Problem Back pain M54.9 Active Problem Essential hypertension I10 Active Assessment Encounter for immunization Z23 Active Assessment Chronic obstructive pulmonary disease, unspecified J44.9 Active Problem Reflux esophagitis 530.11 Active Problem Depressive disorder, not elsewhere classified 311 Active Medications Medication Code System Code Instructions Start Date End Date Status Dosage Incruse Ellipta FORMERLY NAMED [facility] 51173278425 62.5 MCG/INH Inhalation Once a day 1 puff Baclofen FORMERLY NAMED [facility] 75650545047 10 MG TAKE ONE TABLET BY MOUTH THREE TIMES DAILY NEEDED Benazepril HCl FORMERLY NAMED [facility] 96146543853 20 MG TAKE ONE TABLET BY MOUTH DAILY Hydrocodone-Acetaminophen FORMERLY NAMED [facility] [address]-09 10-325 MG Orally every 4 hours July 06, 2014 1 tablet AndroGel Pump FORMERLY NAMED [facility] 80712926239 20.25 MG/ACT (1.62%) Transdermal Once a day APPLY ONE PUMP (20.25MG) TO ONE UPPER ARM AND SHOULDER ONCE DAILY Albuterol Sulfate FORMERLY NAMED [facility] [address]-62 (2.5 MG/3ML) 0.083% Inhalation 4 times a day for cough and wheezing 3 ml as needed Omeprazole FORMERLY NAMED [facility] 61183320180 20 MG TAKE ONE CAPSULE BY MOUTH DAILY Zolpidem Tartrate FORMERLY NAMED [facility] [address]-57 5 MG Orally Once a day TAKE ONE TABLET BY MOUTH ONCE DAILY NEEDED Breo Ellipta FORMERLY NAMED [facility] 71493281187 100-25 MCG/INH INHALE ONE PUFF BY MOUTH ONCE DAILY Mens Multi Vitamin & Mineral FORMERLY NAMED [facility] 12752-74726 Orally not defined Promethazine HCl FORMERLY NAMED [facility] 07597613771 25 MG Orally every 12 hrs 1 tablet as needed Benadryl FORMERLY NAMED [facility] [address]-48 25 MG Orally every 6 hrs Apr 12, 2015 1 capsule as needed Spiriva HandiHaler FORMERLY NAMED [facility] 25680852624 18 MCG Inhalation Once a day 1 capsule Proventil HFA FORMERLY NAMED [facility] [address]-72 108 (90 Base) MCG/ACT Inhalation every 4 hrs 2 puffs as needed Citalopram Hydrobromide FORMERLY NAMED [facility] 93534547763 20 MG TAKE ONE TABLET BY MOUTH ONCE DAILY Oxygen NDC 0 6 inhalations all the time not defined Mucus Relief FORMERLY NAMED [facility] 72021231846 400 MG TAKE ONE TABLET BY MOUTH EVERY 4 HOURS NEEDED WITH A FULL GLASS OF WATER Excedrin Sinus Headache NDC 0 not defined MS Contin FORMERLY NAMED [facility] [address]-95 60 MG Orally every 12 hrs July 06, 2014 1 tablet by Oral route every 12 hours 28 day supply Aciphex FORMERLY NAMED [facility] [address]-84 40 mg Orally Twice a day 1 tablet Procedures Procedure Coding System Code Date Office Visit, Est Pt., Level 2 CPT-4 07550 Feb 22, 2016 FLUARIX QUAD P-FREE 3 AND UP .50 2015 CPT-4 59891 Feb 22, 2016 [facility] VISIT ESTABLISHED PATIENT CPT-4 G0467 Feb 22, 2016 SINGLE IMMUNIZATION ADMIN CPT-4 23257 Feb 22, 2016 Vital Signs Date/Time: Feb 22, 2016 Cardiac Monitoring Heart Rate 100 bpm Weight 206.1 lbs Height 68 in BMI 31.33 Index Blood Pressure Diastolic 78 mmHg Blood Pressure Systolic 157 mmHg Results No Known Results Immunizations Vaccine Administration Date FLUARIX QUAD P-FREE 3 AND UP .50 2015Feb 22, 2016 Summary Purpose eClinicalWorks Submission
--- OUTSIDE RECORDS SUMMARY | 2018-06-11 16:17 | XMS REPORT ---
Author Author SARA CONROY [facility] Address [address] [place] [address] Care Team Providers Care Small Business Representative Name Role Phone SARA CONROY Unavailable PROBLEMS Type Condition ICD9-CM Code [id number] Code Onset Dates Condition Status SNOMED Code Problem Essential hypertension I10 Active 05793255 Problem Chronic obstructive pulmonary disease, unspecified J44.9 Active 34170254 Problem Depressive disorder, not elsewhere classified 311 Active 76837122 Assessment Dorsalgia, unspecified M54.9 Mar, Active 345338836 Problem Back pain M54.9 Active 588142649 Problem Reflux esophagitis 530.11 Active 254760013 ALLERGIES Unknown Allergies SOCIAL HISTORY No smoking Hx information available PLAN OF CARE VITAL SIGNS MEDICATIONS Medication Instructions Dosage Frequency Start Date End Date Duration Status MS Contin 60 MG Orally every 12 hrs 1 tablet by Oral route every 12 hours 28 day supply 12h Jun, Active Hydrocodone-Acetaminophen 10-325 MG Orally every 4 hours 1 tablet 4h Jun Active RESULTS No Results PROCEDURES No Known procedures IMMUNIZATIONS No Known Immunizations
--- OUTSIDE RECORDS SUMMARY | 2018-06-11 16:17 | XMS REPORT ---
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 Problem Dysphagia, unspecified 787.20 Active Problem Reflux esophagitis 530.11 Active Problem Blood in stool 578.1 Active Problem Essential and other specified forms of tremor 333.1 Active Problem Influenza with other respiratory manifestations 487.1 Active Problem Dyspepsia and other specified disorders of function of stomach 536.8 Active Problem Other chronic pain 338.29 Active Problem Depressive disorder, not elsewhere classified 311 Active Problem Pain in joint, shoulder region 719.41 Active Problem Essential hypertension, benign 401.1 Active Problem Unspecified arthropathy, 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 Active Medications Medication Code System Code Instructions Start Date End Date Status Dosage MS Contin [facility] [address]-11 60 MG Orally every 12 hrs July 06, 2014 1 tablet by Oral route every 12 hours 28 day supply Hydrocodone-Acetaminophen [facility] [address]-23 10-325 MG Orally every June 1 tablet by Oral route every 4 hours PRN 28 day supply Results No Known Results Summary Purpose eClinicalWorks Submission
--- OUTSIDE RECORDS SUMMARY | 2018-06-11 16:17 | XMS REPORT ---
Author Author Soledad ALFREDO Organization [facility] Address [address] [place] [address] Care Team Providers Care Rn Birthing Name Role Phone chelleMURALI ALFREDO Unavailable PROBLEMS Type Condition ICD9-CM Code VPJ90-GW Code Onset Dates Condition Status SNOMED Code Problem Chronic pain syndrome G89.4 Active 998779110 Problem Low serum testosterone E29.1 Active 966299085 Problem Back pain M54.9 Active 683069613 Problem Essential hypertension I10 Active 77728606 Problem Chronic obstructive pulmonary disease, unspecified J44.9 Active [id number] ALLERGIES No Information ENCOUNTERS Encounter Location Date Diagnosis [facility] [id number] [place] [address] 63366- 8660 Jul, Medicare annual wellness visit, initial Z00.00 [place] [id number] [place] [address] 90022- 1293 Jun, Back pain M54.9 [place] [id number] [place] [address] 84940- 9065 28 May, 2017 Back pain M54.9 [facility] [id number] [place] [address] 32173- 2671 13 May, 2017 Exposure to the flu Z20.828 [facility] [id number] [place] [address] 20704- 5617 05 May, 2017 Chronic pain syndrome G89.4 ; Back pain M54.9 and Chronic obstructive pulmonary disease, unspecified J44.9 [facility] [id number] [place] [address] 27011- 6374 01 May, 2017 Back pain M54.9 [place] [id number] [place] [address] 05554- 1032 Apr, Back pain M54.9 [facility] [address] [facility] [id number], [place] [address] 0938 Mar, Back pain M54.9 [facility] [address] [facility] [id number], [place] [address] 3766 Feb, Back pain M54.9 [facility] [address] [facility] [id number] [place] [address] 49398- 7342 Jan, Back pain M54.9 [facility] [address] [facility] [id number] [place] [address] 35401- 7248 Dec, Chronic obstructive pulmonary disease, unspecified J44.9 and Back pain M54.9 [facility] [id number] [place] [address] 53329- 7388 Dec, Back pain M54.9 [facility] [id number] [place] [address] 37610- 1841 Nov, Back pain M54.9 [facility] [id number] [place] [address] 31860- 6850 Oct, Essential hypertension I10 [facility] [address] [facility] [id number], [place] [address] 3501 Oct, Back pain M54.9 [facility] [address] [id number] [address] 1907 Oct, [facility] [address] [id number] [address] 5727 Oct, [facility] [address] [facility] [id number] [place] [address] 76524- 1548 Sep, Back pain M54.9 [facility] [address] [facility] [id number], [place] [address] 0962 August, [facility] [id number] [place] [address] 50240- 9015 August, Essential hypertension I10 [facility] [id number] [place] [address] 47192- 6338 August, Other dorsalgia M54.89 [facility] [id number] [place] [address] 02112- 7905 August, Back pain M54.9 ; Chronic obstructive pulmonary disease, unspecified J44.9 and Low serum testosterone E29.1 [facility] [id number] [place] [address] 27376- 1157 Jul, Other dorsalgia M54.89 [facility] [id number] [place] [address] 66876- 7249 Jun, Dorsalgia, unspecified M54.9 [facility] [id number] [place] [address] 84271- 4398 Jun, Dorsalgia, unspecified M54.9 [facility] [id number] [place] [address] 35767- 5070 Jun, [facility] [id number] [place] [address] 02098- 9979 Jun, Chronic obstructive pulmonary disease, unspecified J44.9 [facility] [id number] [place] [address] 33200- 6967 Jun, Back pain M54.9 [facility] [id number] [place] [address] 43435- 3882 May, Chronic obstructive pulmonary disease, unspecified J44.9 [facility] [id number] [place] [address] 13073- 9512 May, [facility] [id number] [place] [address] 52056- 6011 May, Other dorsalgia M54.89 [facility] [id number] [place] [address] 41802- 2210 Apr, [facility] [id number] [place] [address] 24713- 3852 Apr, Other dorsalgia M54.89 [facility] [id number] [place] [address] 97496- 7221 Mar, Chronic obstructive pulmonary disease, unspecified J44.9 ; Essential hypertension I10 and Back pain M54.9 [facility] [id number] [place] [address] 65241- 9745 Mar, [facility] [address] 91941- 8040 Mar, Dorsalgia, unspecified M54.9 [facility] [address] 93358- 0247 Mar, Edema R60.9 [facility] [address] 43791- 7793 Feb, [facility] [address] 23546- 9509 Feb, Other dorsalgia M54.89 [facility] [id number] [place] [address] 19098- 1325 25 Jan, 2016 Encounter for immunization Z23 and Chronic obstructive pulmonary disease, unspecified J44.9 [facility] [id number] [place] [address] 22169- 1949 Jan, [facility] [id number] [place] [address] 33779- 4429 14 Dec, 2015 [facility] [id number] [place] [address] 57680- 4798 13 Dec, 2015 [facility] [address] 50726- 7667 13 Dec, 2015 Essential hypertension I10 and Back pain M54.9 [facility] [id number] [place] [address] 24955- 2280 17 Nov, 2015 [facility] [address] 15050- 0247 Nov, [facility] [address] [facility] [id number], [place] [address]- 8716 Oct, Other dorsalgia M54.89 [facility] [address] [facility] [id number], [place] [address]- 2575 Oct, [facility] [address] [facility] [id number], [place] [address]- 5482 Sep, [facility] [address] [facility] [id number], [place] [address]- 6540 Sep, [facility] [address] [facility] [id number] [place] [address] 84406- 5116 Sep, [facility] [address] [facility] [id number] [place] [address] 56364- 3665 August, [facility] [address] [facility] [id number] [place] [address] 63133- 2700 August, Other dorsalgia M54.89 [facility] [address] [facility] [id number], [place] [address]- 4357 August, [facility] [address] [facility] [id number], [place] [address]- 1011 August, Chronic obstructive pulmonary disease, unspecified J44.9 and Back pain M54.9 [facility] [address] [facility] [id number], [place] [address]- 0157 August, [facility] [address] [facility] [id number], [place] [address]- 5246 August, [facility] [address] [facility] [id number], [place] [address]- 7867 August, Chronic obstructive pulmonary disease, unspecified J44.9 [facility] [address] [facility] [id number], [place] [address]- 0979 Jul, Other dorsalgia M54.89 [facility] [address] [facility] [id number], [place] [address]- 2260 Jul, Insomnia G47.00 [facility] [id number] [place] [address] 32633 2546 Jun, Other dorsalgia M54.89 [facility] [id number] [place] [address] 77441 2546 Jun, Other dorsalgia M54.89 [facility] [id number] [place] [address] 33052 2546 May, COPD (chronic obstructive pulmonary disease) J44.9 and Bronchitis J40 [facility] [id number] [place] [address] 74772- 5686 May, Chronic obstructive pulmonary disease, unspecified J44.9 [facility] [address] 54077 2546 May, [facility] [address] 22654 2549 May, Other dorsalgia M54.89 [facility] [id number] [place] [address] 59183- 8526 Apr, Chronic obstructive pulmonary disease, unspecified J44.9 [facility] [id number] [place] [address] 31581- 2485 Apr, [facility] [id number] [place] [address] 16483- 6480 Mar, [facility] [id number] [place] [address] 76027- 3806 Mar, COPD (chronic obstructive pulmonary disease) J44.9 ; Back pain M54.9 and Edema R60.9 [facility] [id number] [place] [address] 24735- 0146 Mar, [facility] [id number] [place] [address] 71303- 2394 Mar, [facility] [id number] [place] [address] 58447- 8124 Feb, [facility] [address], [place] [address]- 0047 Feb, [facility] [address], [place] [address]- 3340 Feb, [facility] [address], [place] [address]- 1643 Jan, [facility] [address], [place] [address]- 7945 Jan, [facility] [id number] [place] [address] 24917- 5060 Jan, [facility] [address], [place] [address]- 8806 Dec, Chronic airway obstruction, not elsewhere classified 496 ; Back pain 724.5 ; Flu vaccine need V04.81 and Prophylactic vaccination against streptococcus pneumoniae and influenza V06.6 [facility] [address], [place] [address]- 0499 Dec, [facility] [address], [place] [address]- 8905 Dec, [facility] [address], [place] [address]- 7017 Dec, [facility] [address], [place] [address]- 7830 Nov, [facility] [address], [place] [address]- 6125 Nov, [facility] [address], [place] [address]- 0596 Nov, [facility] [address], [place] [address]- 5420 Oct, [facility] [id number], [place] [address]- 8483 Oct, [facility] [address] [id number] [place] [address]- 5064 Oct, Unspecified arthropathy, 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 and Chronic airway obstruction, not elsewhere classified 496 [facility] [address] [id number] [place] [address]- 5433 Oct, [facility] [address] [id number] [place] [address]- 9111 Sep, [facility] [address] [id number] [place] [address]- 7214 Sep, [facility] [address] [id number] [place] [address]- 8662 Sep, [facility] [address] [id number] [place] [address]- 4748 August, [facility] [address] [id number] [place] [address]- 5883 August, [facility] [address] [id number] [place] [address]- 4506 August, [facility] [address] [id number] [place] [address]- 3904 August, [facility] [address] [facility] [id number] [place] [address]- 7924 August, [facility] [address] [id number] [place] [address]- 3730 Jul, [facility] [address] [id number] [place] [address]- 6931 Jul, [facility] [address] [id number] [place] [address]- 3443 Jun, [facility] [address] [id number] [place] [address]- 2704 Jun, [facility] [address] [facility] [id number] [place] [address]- 8653 Jun, [facility] [place] [facility] [address] [id number] [place] [address]- 2503 Jun, [facility] [place] [facility] [address] [id number] [place] [address]- 0717 Jun, [facility] [place] [facility] [address] [id number] [place] [address]- 0817 Jun, [facility] [place] [facility] [address] [id number] [place] [address]- 8206 May, [facility] [place] [facility] [address] [id number] [place] [address]- 6709 May, [facility] [place] [facility] [address] [id number] [place] [address]- 4573 May, [facility] [place] [facility] [address] [id number] [place] [address]- 9342 May, [facility] [place] [facility] [address] [id number] [place] [address]- 5295 May, [facility] [place] [facility] [address] [id number] [place] [address]- 2337 Apr, [facility] [place] [facility] [address] [id number] [place] [address]- 6194 Apr, [facility] [place] [facility] [address] [id number], [place] [address]- 2391 Apr, [facility] [place] [facility] [address] [id number], [place] [address]- 3366 Apr, [facility] [place] [facility] [address] [id number] [place] [address]- 2899 Apr, [facility] [place] [facility] [address] [id number] [place] [address]- 7364 Apr, [facility] [place] [facility] [address] [id number] [place] [address]- 7740 Apr, [facility] [place] [facility] [address] [id number] [place] [address]- 9275 Mar, [facility] [place] [facility] [address] [id number] [place] [address]- 8250 Mar, [facility] [place] [facility] [address] [id number] [place] 4767 Mar, [facility] [place] [facility] [address] [id number] [place] 3556 Mar, [facility] [place] [facility] [address] [id number] [place] [address]- 0654 Mar, [facility] [place] [facility] [address] [id number] [place] [address]- 2059 Mar, [facility] [place] [facility] [address] [id number] [place] [address]- 1557 Mar, [facility] [place] [facility] [address] [id number] [place] [address]- 9783 Mar, [facility] [place] [facility] [address] [id number] [place] [address]- 9865 Mar, [facility] [place] [facility] [address] [id number] [place] [address]- 9711 Mar, [facility] [place] [facility] [address] [id number] [place] [address]- 1272 Feb, [facility] [place] [facility] [address] [id number] [place] [address]- 0757 Feb, [facility] [place] [facility] [address] [id number] [place] [address]- 8334 Jan, [facility] [place] [facility] [address] [id number] [place] [address]- 3568 Jan, [facility] [place] [facility] [address] [id number] [place] [address]- 5191 Jan, [facility] [place] [facility] [address] [id number] [place] [address]- 8898 14 Jan, 2014 [facility] [place] [facility] [address] [id number] [place] [address]- 2192 14 Jan, 2014 [facility] [place] [facility] [address] [id number] [place] [address]- 3325 14 Jan, 2014 [facility] [place] [facility] [address] [id number] [place] [address]- 5630 Jan, [facility] [place] [facility] [address] [id number] [place] [address]- 1016 Jan, [facility] [place] [facility] [address] [id number] [place] [address]- 1500 Jan, [facility] [place] [facility] [address] [id number] [place] [address]- 4195 Jan, [facility] [place] [facility] [address] [id number] [place] [address]- 4538 Jan, [facility] [place] [facility] [address] [id number] [place] [address]- 6212 Jan, [facility] [place] [facility] [address] [id number] [place] [address]- 1750 Dec, [facility] [place] [facility] [address] [id number] [place] [address]- 3849 Dec, [facility] [place] [facility] [address] [id number] [place] [address]- 6188 Dec, [facility] [place] [facility] [address] [id number] [place] [address]- 8739 Dec, [facility] [place] [facility] [address] [id number] [place] [address]- 9108 Dec, [facility] [place] [facility] [address] [id number] [place] [address]- 4200 Nov, [facility] [place] [facility] [address] [id number] [place] [address]- 5517 Nov, [facility] [place] [facility] [address] [id number] [place] [address]- 0516 Nov, [facility] [place] [facility] [address] [id number] [place] [address]- 2032 Nov, [facility] [place] [facility] [address] [id number] [place] [address]- 7069 Oct, [facility] [place] [facility] [address] [id number] [place] [address]- 6231 Oct, [facility] [place] [facility] [address] [id number] [place] [address]- 6188 Oct, [facility] [place] [facility] [address] [id number] [place] [address]- 6559 Oct, [facility] [place] [facility] [address] [id number] [place] [address]- 7003 Oct, [facility] [place] [facility] [address] [id number] [place] [address]- 0120 Oct, [facility] [place] [facility] [address] [id number] [place] [address]- 9898 Oct, [facility] [place] [facility] [address] [id number] [place] [address]- 6575 Oct, [facility] [place] [facility] [address] [id number] [place] [address]- 2870 Oct, [facility] [place] [facility] [address] [id number] [place] [address]- 4081 Oct, [facility] [place] [facility] [address] [id number] [place] [address]- 6595 Sep, [facility] [place] [facility] [address] [id number] [place] [address]- 0953 Sep, [facility] [place] [facility] [address] [id number] [place] [address]- 6483 Sep, [facility] [place] [facility] [address] [id number] [place] [address]- 8915 Sep, [facility] [place] [facility] [address] [id number] [place] [address]- 3896 Sep, [facility] [address] [id number] [place] [address]- 1760 Sep, [facility] [address] [id number] [place] [address]- 8171 August, [facility] [address] [id number] [place] [address]- 6793 August, [facility] [address] [id number] [place] [address]- 8980 August, [facility] [address] [id number] [place] [address]- 6812 August, [facility] [address] [id number] [place] [address]- 6737 August, [facility] [address] [id number] [place] [address]- 7057 August, [facility] [address] [id number] [place] [address]- 6364 Jul, [facility] [place] [facility] [address] [id number] [place] [address]- 7589 Jul, [facility] [address] [id number] [place] [address]- 9938 Jul, [facility] [place] [facility] [address] [id number] [place] [address]- 6522 Jul, [facility] [place] [facility] [address] [id number] [place] [address]- 9304 Jul, [facility] [place] [facility] [address] [id number] [place] [address]- 0116 Jul, [facility] [place] [facility] [address] [id number] [place] [address]- 4586 Jul, [facility] [place] [facility] [address] [id number] [place] [address]- 2300 Jul, [facility] [address] [id number] [place] [address]- 6483 Jul, [facility] [place] [facility] [address] [id number] [place] [address]- 1396 Jun, [facility] [place] [facility] [address] [id number] [place] [address]- 8536 Jun, [facility] [place] [facility] [address] [id number] [place] [address]- 5426 Jun, [facility] [place] [facility] [address] [id number] [place] [address]- 9810 May, [facility] [place] [facility] [address] [id number] [place] [address] May, [facility] [place] [facility] [address] [id number] [place] [address] May, [facility] [place] [facility] [address] [id number] [place] [address] May, [facility] [place] [facility] [address] [id number] [place] [address] May, [facility] [place] [facility] [address] [id number] [place] [address] May, [facility] [place] [facility] [address] [id number] [place] [address] Apr, [facility] [place] [facility] [address] [id number] [place] [address] Apr, [facility] [place] [facility] [address] [id number] [place] [address] Apr, [facility] [place] [facility] [address] [id number] [place] [address] Apr, [facility] [place] [facility] [address] [id number] [place] [address] Apr, [facility] [place] [facility] [address] [id number] [place] [address] Apr, [facility] [address] [id number] [place] [address] Apr, [facility] [address] [id number] [place] [address] Apr, [facility] [address] [id number] [place] [address] Apr, [facility] [address] [id number] [place] [address] Apr, [facility] [address] [id number] [place] [address] Mar, [facility] [address] [id number] [place] [address] Mar, [facility] [address] [id number] [place] [address] Mar, [facility] [address] [id number] [place] [address] Mar, [facility] [address] [id number] [place] [address] Mar, [facility] [address] [id number] [place] [address] Mar, [facility] [address] [id number] [place] [address] Mar, [facility] [address] [id number] [place] [address] Mar, [facility] [place] [facility] [address] [id number] [place] [address] Mar, [facility] [place] [facility] [address] [id number] [place] [address] Mar, [facility] [address] [id number] [place] [address] Mar, [facility] [place] [facility] [address] [id number] [place] [address] Feb, [facility] [place] [facility] [address] [id number] [place] [address] Feb, [facility] [place] [facility] [address] [id number] [place] [address] Feb, [facility] [place] [facility] [address] [id number] [place] [address] Feb, [facility] [place] [facility] [address] [id number] [place] [address] Feb, [facility] [place] [facility] [address] [id number] [place] [address] Feb, [facility] [place] [facility] [address] [id number] [place] [address] Feb, [facility] [place] [facility] [address] [id number] [place] [address] Feb, [facility] [place] [facility] [address] [id number] [place] [address] Feb, [facility] [place] [facility] [address] [id number] [place] [address] Feb, [facility] [place] [facility] [address] [id number] [place] [address] Feb, [facility] [place] [facility] [address] [id number], [place] [address] Feb, [facility] [place] [facility] [address] [id number] [place] [address] Jan, [facility] [place] [facility] [address] [id number] [place] [address] 2994 Jan, [facility] [place] [facility] [address] [id number], [place] [address] Jan, [facility] [place] [facility] [address] [id number], [place] [address] Jan, [facility] [place] [facility] [address] [id number] [place] [address] 39[address] Jan, [facility] [place] [facility] [address] [id number] [place] [address] 18 Jan, 2013 [facility] [place] [facility] [address] [id number] [place] [address] 5896 15 Jan, 2013 [facility] [place] [facility] [address] [id number] [place] [address] 4952 15 Jan, 2013 [facility] [place] [facility] [address] [id number] [place] [address] Jan, [facility] [place] [facility] [address] [id number] [place] [address] 60[address] 27 Dec, 2012 [facility] [place] [facility] [address] [id number] [place] [address] 487[address] 18 Dec, 2012 [facility] [place] [facility] [address] [id number] [place] [address] 6674 17 Dec, 2012 [facility] [place] [facility] [address] [id number] [place] [address] 9984 11 Dec, 2012 [facility] [place] [facility] [address] [id number] [place] [address] 5196 05 Dec, 2012 [facility] [place] [facility] [address] [id number] [place] [address] 0948 Nov, [facility] [place] [facility] [address] [id number] [place] [address] 1602 Nov, [facility] [place] [facility] [address] [id number] [place] [address] 7613 Oct, [facility] [place] [facility] [address] [id number] [place] [address] 9802 Oct, [facility] [place] [facility] [address] [id number] [place] [address] 9051 Oct, [facility] [place] [facility] [address] [id number] [place] [address] 6757 Oct, [facility] [address] [id number] [place] [address] 7123 Oct, [facility] [address] [id number] [place] [address] 9016 Oct, [facility] [address] [id number] [place] [address] 1043 Sep, [facility] [address] [id number] [place] [address] 6367 Sep, [facility] [address] [id number] [place] [address] 2638 Sep, [facility] [address] [id number] [place] [address] 6432 Sep, [facility] [address] [id number] [place] [address] 3742 Sep, [facility] [address] [id number] [place] [address] 2079 Sep, [facility] [address] [id number] [place] [address] 4609 Sep, [facility] [address] [id number] [place] [address] 3502 August, [facility] [address] [id number] [place] [address] 0846 August, [facility] [address] [id number] [place] [address] 8015 August, [facility] [place] [facility] [address] [id number] [place] [address] 6934 August, [facility] [address] [id number] [place] [address] 2546 August, [facility] [address] [id number] [place] [address] 4933 August, [facility] [address] [id number] [place] [address] 2560 Jul, [facility] [place] [facility] [address] [id number] [place] [address] 9145 Jul, [facility] [place] [facility] [address] [id number] [place] [address] 6526 Jul, [facility] [place] [facility] [address] [id number] [place] [address] 8847 Jul, [facility] [address] [id number] [place] [address]- 5342 Jul, [facility] [place] [facility] [address] [id number] [place] [address] 3037 Jul, [facility] [place] [facility] [address] [id number] [place] [address] 3292 Jun, [facility] [place] [facility] [address] [id number] [place] [address] 5320 Jun, [facility] [place] [facility] [address] [id number] [place] [address] 9472 Jun, [facility] [place] [facility] [address] [id number] [place] [address] 5821 Jun, [facility] [place] [facility] [address] [id number] [place] [address]- 0929 Jun, [facility] [place] [facility] [address] [id number] [place] [address] 8025 Jun, [facility] [place] [facility] [address] [id number] [place] [address] 5011 May, [facility] [place] [facility] [address] [id number] [place] [address] 9855 May, [facility] [place] [facility] [address] [id number] [place] [address]- 2437 May, [facility] [place] [facility] [address] [id number] [place] [address] 3916 May, [facility] [address] [id number] [place] [address] 0310 Apr, [facility] [address] [id number] [place] [address]- 5189 Apr, [facility] [address] [id number] [place] [address] 1421 Apr, [facility] [address] [id number] [place] [address]- 7702 Apr, [facility] [address] [id number] [place] [address] 6074 Apr, [facility] [address] [id number] [place] [address]- 7050 Apr, [facility] [address] [id number] [place] [address]- 7329 Apr, [facility] [address] [id number] [place] [address]- 7348 Apr, [facility] [address] [id number] [place] [address]- 6081 Apr, [facility] [address] [id number] [place] [address]- 9437 Mar, [facility] [address] [id number] [place] [address]- 4121 Mar, [facility] [address] [id number] [place] [address]- 7544 Mar, [facility] [address] [id number] [place] [address] Mar, [facility] [address] [id number] [place] [address]- 3739 Mar, [facility] [address] [id number] [place] [address]- 1536 Mar, [facility] [place] [facility] [address] [id number] [place] [address]- 9821 Mar, [facility] [place] [facility] [address] [id number] [place] [address]- 1443 Mar, [facility] [place] [facility] [address] [id number] [place] [address] Mar, [facility] [place] [facility] [address] [id number] [place] [address]- 7081 Mar, [facility] [place] [facility] [address] [id number] [place] [address]- 4692 Feb, [facility] [place] [facility] [address] [id number] [place] [address]- 1696 Feb, [facility] [place] [facility] [address] [id number] [place] [address]- 8217 Feb, [facility] [place] [facility] [address] [id number] [place] [address]- 4424 Feb, [facility] [place] [facility] [address] [id number] [place] [address]- 3847 Feb, [facility] [place] [facility] [address] [id number] [place] [address]- 4682 Feb, [facility] [place] [facility] [address] [facility] [id number] [place] [address]- 8286 Feb, [facility] [place] [facility] [address] [id number], [place] [address] 1817 Jan, [facility] [place] [facility] [address] [id number] [place] [address]- 4204 Jan, [facility] [place] [facility] [address] [id number] [place] [address]- 6545 Jan, [facility] [place] [facility] [address] [id number] [place] [address]- 2435 Jan, [facility] [place] [facility] [address] [id number], [place] [address]- 6660 Jan, [facility] [place] [facility] [address] [id number] [place] [address]- 7486 29 Jan, 2012 [facility] [place] [facility] [address] [id number] [place] [address]- 5166 Jan, [facility] [place] [facility] [address] [id number] [place] [address]- 4296 Jan, [facility] [place] [facility] [address] [id number] [place] [address]- 3671 Jan, [facility] [place] [facility] [address] [id number] [place] [address]- 1119 Jan, [facility] [place] [facility] [address] [id number] [place] [address]- 2645 27 Dec, 2011 [facility] [place] [facility] [address] [id number] [place] [address]- 2785 20 Dec, 2011 [facility] [place] [facility] [address] [id number] [place] [address]- 7245 17 Dec, 2011 [facility] [place] [facility] [address] [id number] [place] [address]- 2478 06 Dec, 2011 [facility] [place] [facility] [address] [id number] [place] [address]- 9993 05 Dec, 2011 [facility] [place] [facility] [address] [id number] [place] [address]- 5736 Dec, [facility] [place] [facility] [address] [id number] [place] [address]- 2777 Nov, [facility] [place] [facility] [address] [id number] [place] [address]- 7380 Nov, [facility] [place] [facility] [address] [id number] [place] [address]- 2920 Nov, [facility] [place] [facility] [address] [id number] [place] [address]- 6370 Nov, [facility] [place] [facility] [address] [id number] [place] [address]- 2351 Oct, [facility] [address] [id number] [place] [address]- 5983 Oct, [facility] [place] [facility] [address] [id number] [place] [address]- 7806 Oct, [facility] [address] [id number] [place] [address]- 5846 Oct, [facility] [address] [id number] [place] [address]- 7713 Oct, [facility] [address] [id number] [place] [address]- 3491 Oct, [facility] [address] [id number] [place] [address]- 8234 Oct, [facility] [address] [id number] [place] [address]- 2285 Oct, [facility] [address] [id number] [place] [address]- 7741 Sep, [facility] [place] [facility] [address] [id number] [place] [address]- 6712 Sep, [facility] [address] [id number] [place] [address]- 3870 Sep, [facility] [place] [facility] [address] [id number] [place] [address]- 2541 Sep, [facility] [address] [id number] [place] [address]- 9967 August, [facility] [place] [facility] [address] [id number] [place] [address]- 7606 August, [facility] [place] [facility] [address] [id number] [place] [address]- 2546 Jul, [facility] [place] [facility] [address] [id number] [place] [address]- 1400 Jun, [facility] [address] [id number] [address] 3961 29 Jun, 2011 [facility] [address], [place] [address]- 5746 Jun, [facility] [address], [place] [address]- 3072 Jun, [facility] [address], [place] [address]- 3781 Jun, [facility] [address], [place] [address]- 5463 Jun, [facility] [id number] [place] [address]- 6040 Jun, [facility] [id number] [place] [address]- 1448 Jun, [facility] [address], [place] [address]- 0208 May, [facility] [address], [place] [address]- 5688 May, [facility] [address], [place] [address]- 0960 Mar, IMMUNIZATIONS No Known Immunizations SOCIAL HISTORY Never Assessed REASON FOR VISIT Morphine and Hydrocodone- 11/20 PLAN OF CARE VITAL SIGNS MEDICATIONS Medication Instructions Dosage Frequency Start Date End Date Duration Status Hydrocodone-Acetaminophen 10-325 MG Orally every 4 hours 1 tablet 4h Oct 28 days Active MS Contin 60 mg Orally every 12 hrs 1 tablet 12h Oct, 28 days Active RESULTS No Results PROCEDURES [...] pneumonia 2012 Hospitalization History COPD exacerbation, acute bronchitis-[facility] 06/10/16
--- OUTSIDE RECORDS SUMMARY | 2018-06-11 16:18 | XMS REPORT ---
Author Author SARA CONROY [facility] Address [address] [place] [address] Care Team Providers Care Grid Casting Machine Operator Helper Name Role Phone SARA CONROY Unavailable PROBLEMS Type Condition ICD9-CM Code [id number] Code Onset Dates Condition Status SNOMED Code Problem Low serum testosterone E29.1 Active 597600265 Problem Essential hypertension I10 Active 32822864 Problem Chronic obstructive pulmonary disease, unspecified J44.9 Active 90047805 Problem Back pain M54.9 Active 761581330 ALLERGIES Unknown Allergies SOCIAL HISTORY No smoking Hx information available PLAN OF CARE VITAL SIGNS MEDICATIONS Unknown Medications RESULTS No Results PROCEDURES No Known procedures IMMUNIZATIONS No Known Immunizations
--- OUTSIDE RECORDS SUMMARY | 2018-06-11 16:18 | XMS REPORT ---
Author Author SARA CONROY Organization [employer] Address Unknown Phone Unavailable Care Team Providers Care Field Installer Name Role Phone SARA CONROY CP Unavailable [...] Instructions Start Date End Date Status Dosage Hydrocodone-Acetaminophen [facility] [address]-86 10-325 MG Orally every June 1 tablet by Oral route every 4 hours PRN 28 day supply MS Contin [facility] [address]-55 60 MG Orally every 12 hrs July 06, 2014 1 tablet by Oral route every 12 hours 28 day supply Results No Known Results Summary Purpose [employer] Submission
--- OUTSIDE RECORDS SUMMARY | 2018-06-11 16:18 | XMS REPORT ---
Author Author SARA CONROY Organization [facility] Address [address] [place] [address] Care Team Providers Care Windows Vmware Administrator Name Role Phone SARA CONROY Unavailable PROBLEMS Type Condition ICD9-CM Code [id number] Code Onset Dates Condition Status SNOMED Code Problem Low serum testosterone E29.1 Active 855761357 Problem Essential hypertension I10 Active 78292295 Problem Chronic obstructive pulmonary disease, unspecified J44.9 Active 28193177 Problem Back pain M54.9 Active 223308261 ALLERGIES No Information SOCIAL HISTORY Never Assessed PLAN OF CARE VITAL SIGNS MEDICATIONS Medication Instructions Dosage Frequency Start Date End Date Duration Status Ventolin HFA 108 (90 Base) MCG/ACT Inhalation every 4 hrs 2 puffs as needed for SOB or wheeze 4h 30 days Active RESULTS No Results PROCEDURES No [...] pneumonia 2012 Hospitalization History COPD exacerbation, acute bronchitis-[facility] 06/10/16
--- OUTSIDE RECORDS SUMMARY | 2018-06-11 16:18 | XMS REPORT ---
Author Author SARA CONROY Organization [employer] Address Unknown Phone Unavailable Care Team Providers Care Administrative Staff Supervisor Name Role Phone SARA CONROY CP Unavailable Allergies No Known Allergies Problems Problem Type Condition Code Onset Dates Condition Status Problem Chronic obstructive pulmonary disease, unspecified J44.9 Active Problem Back pain M54.9 Active Problem Essential hypertension I10 Active Assessment Other dorsalgia M54.89 Active Problem Reflux esophagitis 530.11 Active Problem Depressive disorder, not elsewhere classified 311 Active Medications Medication Code System Code Instructions Start Date End Date Status Dosage MS Contin [facility] [address]-37 60 MG Orally every 12 hrs July 06, 2014 1 tablet by Oral route every 12 hours 28 day supply Hydrocodone-Acetaminophen [facility] [address]-23 10-325 MG Orally every 4 hours July 06, 2014 1 tablet Results No Known Results Summary Purpose [employer] Submission
--- OUTSIDE RECORDS SUMMARY | 2018-06-11 16:18 | XMS REPORT ---
Author Author SARA CONROY Organization [employer] Address Unknown Phone Unavailable Care Team Providers Care Almond Huller Name Role Phone SARA CONROY CP Unavailable [...] Date End Date Status Dosage MS Contin [facility] [address]-08 60 MG Orally every 12 hrs July 06, 2014 1 tablet by Oral route every 12 hours 28 day supply Hydrocodone-Acetaminophen [facility] [address]-66 10-325 MG Orally every June 1 tablet by Oral route every 4 hours PRN 28 day supply Results No Known Results Summary Purpose [employer] Submission
--- OUTSIDE RECORDS SUMMARY | 2018-06-11 16:18 | XMS REPORT ---
Author Author ILIA NEWTON Organization [facility] Address [address] [place] [address] Care Team Providers Care Payroll Director Name Role Phone LAMAR ILIA Unavailable PROBLEMS Type Condition ICD9-CM Code [id number] Code Onset Dates Condition Status SNOMED Code Problem Low serum testosterone E29.1 Active 236388470 Problem Essential hypertension I10 Active 04242643 Problem Chronic obstructive pulmonary disease, unspecified J44.9 Active 09446779 Problem Back pain M54.9 Active 890745612 ALLERGIES No Information SOCIAL HISTORY Never Assessed [...]
--- OUTSIDE RECORDS SUMMARY | 2018-06-11 16:18 | XMS REPORT ---
Author Author SARA CONROY [facility] Address [address] [place] [address] Care Team Providers Care Operation Research Analyst Name Role Phone SARA CONROY Unavailable PROBLEMS Type Condition ICD9-CM Code [id number] Code Onset Dates Condition Status SNOMED Code Problem Essential hypertension I10 Active 79654698 Problem Chronic obstructive pulmonary disease, unspecified J44.9 Active 05571936 Problem Depressive disorder, not elsewhere classified 311 Active 35582898 Problem Back pain M54.9 Active 505254580 Problem Reflux esophagitis 530.11 Active 350020389 ALLERGIES Unknown Allergies SOCIAL HISTORY No smoking Hx information available PLAN OF CARE VITAL SIGNS MEDICATIONS Medication Instructions Dosage Frequency Start Date End Date Duration Status Proventil HFA 108 (90 Base) MCG/ACT Inhalation every 4 hrs 2 puffs as needed 4h Active RESULTS No Results PROCEDURES No Known procedures IMMUNIZATIONS No Known Immunizations
--- OUTSIDE RECORDS SUMMARY | 2018-06-11 16:18 | XMS REPORT ---
Author Author SARA OCNROY [facility] Address [address] [place] [address] Care Team Providers Care Wine Fermenter Name Role Phone SARA CONROY Unavailable PROBLEMS Type Condition ICD9-CM Code [id number] Code Onset Dates Condition Status SNOMED Code Problem Low serum testosterone E29.1 Active 219509227 Problem Essential hypertension I10 Active 52992861 Problem Chronic obstructive pulmonary disease, unspecified J44.9 Active 76261083 Problem Back pain M54.9 Active 645553305 ALLERGIES Unknown Allergies SOCIAL HISTORY No smoking Hx information available PLAN OF CARE VITAL SIGNS MEDICATIONS Medication Instructions Dosage Frequency Start Date End Date Duration Status MS Contin 60 MG Orally every 12 hrs 1 tablet by Oral route every 12 hours 28 day supply 12h Apr, Active Hydrocodone-Acetaminophen 10-325 MG Orally every 4 hours 1 tablet 4h Apr Active RESULTS No Results PROCEDURES No Known procedures IMMUNIZATIONS No Known Immunizations
--- OUTSIDE RECORDS SUMMARY | 2018-06-11 16:18 | XMS REPORT ---
Author Author SARA CONROY [facility] [employer] Address Unknown Phone Unavailable Care Team Providers Care Dry House Attendant Name Role Phone SARA CONROY CP Unavailable [...] Depressive disorder, not elsewhere classified 311 Active Assessment Other dorsalgia M54.89 Active Medications Medication Code System Code Instructions Start Date End Date Status Dosage Zolpidem Tartrate [facility] [address]-22 5 MG Orally Once a day TAKE ONE TABLET BY MOUTH ONCE DAILY NEEDED Oxygen ND 0 6 inhalations all the time not defined MS Contin [facility] [address]-29 60 MG Orally every 12 hrs July 06, 2014 1 tablet by Oral route every 12 hours 28 day supply Incruse Ellipta [facility] 49991335769 62.5 MCG/INH Inhalation Once a day 1 puff Spiriva HandiHaler [facility] 83244447447 18 MCG Inhalation Once a day 1 capsule Hydrocodone-Acetaminophen [facility] [address]-51 10-325 MG Orally every June 1 tablet by Oral route every 4 hours PRN 28 day supply Mens Multi Vitamin & Mineral [facility] [address] Orally not defined Benazepril HCl [facility] 07193233359 20 MG TAKE ONE TABLET BY MOUTH DAILY AndroGel Pump [facility] 35093573701 20.25 MG/ACT (1.62%) Transdermal Once a day APPLY ONE PUMP (20.25MG) TO ONE UPPER ARM AND SHOULDER ONCE DAILY Citalopram Hydrobromide [facility] 76188136905 20 MG TAKE ONE TABLET BY MOUTH ONCE DAILY Proventil HFA [facility] [address]-16 108 (90 Base) MCG/ACT Inhalation every 4 hrs 2 puffs as needed Albuterol Sulfate [facility] [address]-46 (2.5 MG/3ML) 0.083% Inhalation 4 times a day for cough and wheezing 3 ml as needed Benadryl [facility] [address]-69 25 MG Orally every 6 hrs Apr 12, 2015 1 capsule as needed Omeprazole [facility] 93088269081 20 MG TAKE ONE CAPSULE BY MOUTH DAILY Promethazine HCl [facility] 06602611737 25 MG Orally every 12 hrs 1 tablet as needed Baclofen [facility] 45418863661 10 MG TAKE ONE TABLET BY MOUTH THREE TIMES DAILY NEEDED Aciphex [facility] [address]-73 40 mg Orally Twice a day 1 tablet Mucus Relief [facility] 51903356029 400 MG TAKE ONE TABLET BY MOUTH EVERY 4 HOURS NEEDED WITH A FULL GLASS OF WATER Procedures Procedure Coding System Code Date No Charge CPT-4 44211 November 26, 2015 [facility] VISIT ESTABLISHED PATIENT CPT-4 G0467 November 26, 2015 MEASURE BLOOD OXYGEN LEVEL CPT-4 02407 November 26, 2015 Office Visit, Est Pt., Level 3 CPT-4 33439 November 26, 2015 Vital Signs Date/Time: November 26, 2015 Cardiac Monitoring Heart Rate 106 bpm Weight 200.0 lbs Height 68 in BMI 30.41 Index Oximetry 97 % Blood Pressure Diastolic 78 mmHg Blood Pressure Systolic 142 mmHg Results No Known Results Summary Purpose eClinicalWorks Submission
--- OUTSIDE RECORDS SUMMARY | 2018-06-11 16:18 | XMS REPORT ---
Author Author SARA CONROY [facility] eClinicalWorks Address Unknown Phone Unavailable Care Team Providers Care Car Shakeout Operator Name Role Phone SARA CONROY CP Unavailable [...] Start Date End Date Status Dosage Hydrocodone-Acetaminophen [facility] [address]-59 10-325 MG Orally every June 1 tablet by Oral route every 4 hours PRN 28 day supply Results No Known Results Summary Purpose eClinicalWorks Submission
--- OUTSIDE RECORDS SUMMARY | 2018-06-11 16:18 | XMS REPORT ---
Author SARA Rodriguez [facility] [place] eClinicalWorks Address Unknown Phone Unavailable Care Team Providers Care Hospital Staff Pharmacist Name Role Phone SARA CONROY CP Unavailable Allergies, Adverse Reactions, Alerts Substance Reaction Event Type Tramadol HCl itching Drug Allergy Soma Makes pt mean Drug Allergy Fentanyl Patches Info Not Available Non Drug Allergy Problems Problem Type Condition Code Onset Dates Condition Status Problem Essential hypertension, benign 401.1 Active Problem Chronic airway obstruction, not elsewhere classified 496 Active Problem Unspecified arthropathy, 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 Active Problem Back pain M54.9 Active Problem Back pain 724.5 Active Problem COPD (chronic obstructive pulmonary disease) J44.9 Active Problem Other chronic pain 338.29 Active Problem Essential and other specified forms of tremor 333.1 Active Problem Reflux esophagitis 530.11 Active Problem Dyspepsia and other specified disorders of function of stomach 536.8 Active Assessment Edema R60.9 Active Assessment Back pain M54.9 Active Assessment COPD (chronic obstructive pulmonary disease) J44.9 Active Problem Depressive disorder, not elsewhere classified 311 Active Medications Medication Code System Code Instructions Start Date End Date Status Dosage Breo Ellipta [facility] [address]-90 100-25 MCG/INH Inhalation Once a day September 1 puff Baclofen [facility] 06640531438 10 MG TAKE ONE TABLET BY MOUTH THREE TIMES DAILY NEEDED Oxygen ND 0 4 LPM inhalations all the time not defined MS Contin [facility] [address]-21 60 MG Orally every 12 hrs July 06, 2014 1 tablet by Oral route every 12 hours 28 day supply Albuterol Sulfate [facility] [address]-29 (2.5 MG/3ML) 0.083% Inhalation 4 times a day for cough and wheezing 3 ml as needed Spiriva HandiHaler [facility] [address]-85 18 MCG Inhalation Once a day 1 capsule AndroGel Pump [facility] 10862161896 20.25 MG/ACT (1.62%) APPLY ONE PUMP (20.25MG) TO ONE UPPER ARM AND SHOULDER ONCE DAILY Citalopram Hydrobromide [facility] 64829617088 20 MG TAKE ONE TABLET BY MOUTH DAILY Benazepril HCl [facility] [address]-48 20 MG Orally Once a day 1 tablet Hydrocodone-Acetaminophen [facility] [address]-19 10-325 MG Orally every June 1 tablet by Oral route every 4 hours PRN 28 day supply Aciphex [facility] [address]-39 40 mg Orally Twice a day 1 tablet Mucus Relief [facility] 92891555974 400 MG TAKE ONE TABLET BY MOUTH EVERY 4 HOURS NEEDED WITH A FULL GLASS OF WATER Promethazine HCl [facility] [address]-45 25 MG Orally every 12 hrs September 01, 2014 1 tablet as needed Ambien [facility] [address]-75 5 MG Orally Once a day 1 tablet at bedtime Boniva [facility] [address]-27 150 MG Orally 1 tablet ProAir HFA [facility] [address]-58 108 (90 Base) MCG/ACT Inhalation every 4 hrs 2 puffs as needed Omeprazole [facility] 02579762383 20 MG TAKE ONE CAPSULE BY MOUTH DAILY Procedures Procedure Coding System Code Date VENIPUNCT, ROUTINE* CPT-4 73568 Apr 12, 2015 [facility] VISIT ESTABLISHED PATIENT CPT-4 G0467 Apr 12, 2015 LAB [facility] CPT-4 NOBLL Apr 12, 2015 Office Visit, Est Pt., Level 3 CPT-4 78758 Apr 12, 2015 Vital Signs Date/Time: Apr 12, 2015 Temperature 99.0 F Weight 195 lbs Height 68 in BMI 29.65 Index Blood Pressure Diastolic 80 mmHg Blood Pressure Systolic 152 mmHg Cardiac Monitoring Heart Rate 113 bpm Results Name Result Date Reference Range Unit Abnormality Flag ROUTINE VENIPUNCTURE Summary Purpose eClinicalWorks Submission
--- OUTSIDE RECORDS SUMMARY | 2018-06-11 16:18 | XMS REPORT ---
Author Author SARA CONROY Organization eClinicalWorks Address Unknown Phone Unavailable Care Team Providers Care Simplex Printer Installer Name Role Phone SARA CONROY CP Unavailable Allergies No Known Allergies Problems Problem Type Condition Code Onset Dates Condition Status Problem Chronic obstructive pulmonary disease, unspecified J44.9 Active Problem Back pain M54.9 Active Problem Essential hypertension I10 Active Problem Reflux esophagitis 530.11 Active Problem Depressive disorder, not elsewhere classified 311 Active Medications Medication Code System Code Instructions Start Date End Date Status Dosage Hydrocodone-Acetaminophen [facility] [address]-89 10-325 MG Orally every 4 hours July 06, 2014 1 tablet MS Contin [facility] [address]-40 60 MG Orally every 12 hrs July 06, 2014 1 tablet by Oral route every 12 hours 28 day supply Results No Known Results Summary Purpose eClinicalWorks Submission
--- OUTSIDE RECORDS SUMMARY | 2018-06-11 16:18 | XMS REPORT ---
Author Author SARA CONROY Organization e[employer] Address Unknown Phone Unavailable Care Team Providers Care Brim Plater Name Role Phone SARA CONROY CP Unavailable Allergies No Known Allergies Problems Problem Type Condition Code Onset Dates Condition Status Problem Chronic obstructive pulmonary disease, unspecified J44.9 Active Problem Back pain M54.9 Active Problem Essential hypertension I10 Active Problem Reflux esophagitis 530.11 Active Problem Depressive disorder, not elsewhere classified 311 Active Medications Medication Code System Code Instructions Start Date End Date Status Dosage AndroGel Pump [facility] [id number] 20.25 MG/ACT (1.62%) Transdermal Once a day APPLY ONE PUMP (20.25MG) TO ONE UPPER ARM AND SHOULDER ONCE DAILY Results No Known Results Summary Purpose eClinicalWorks Submission
--- OUTSIDE RECORDS SUMMARY | 2018-06-11 16:19 | XMS REPORT ---
Author Author SARA CONROY Organization eClinicalWorks Address Unknown Phone Unavailable Care Team Providers Care [employer] Manager Name Role Phone SARA CONROY CP [...] Status Dosage Hydrocodone-Acetaminophen [facility] [address]-32 10-325 MG Orally every June 1 tablet by Oral route every 4 hours PRN [address] [facility] [address]-65 5 MG Orally Once a day 1 tablet at bedtime Results No Known Results Summary Purpose eClinicalWorks Submission
--- OUTSIDE RECORDS SUMMARY | 2018-06-11 16:19 | XMS REPORT ---
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 Name Role Phone SARA CONROY Unavailable PROBLEMS Type Condition ICD9-CM Code AKL72-RC Code Onset Dates Condition Status SNOMED Code Problem Chronic pain syndrome G89.4 Active 348924869 Problem Low serum testosterone E29.1 Active 316516723 Problem Back pain M54.9 Active 074139708 Problem Essential hypertension I10 Active 74307329 Problem Chronic obstructive pulmonary disease, unspecified J44.9 Active [id number] ALLERGIES No Information ENCOUNTERS Encounter Location Date Diagnosis [place] [id number] [place] [address] 31165- 8022 August, Back pain M54.9 [place] [id number] [place] [address] 68681- 5149 Jul, Back pain M54.9 [place] [id number] [place] [address] 99259- 2183 Jul, Medicare annual wellness visit, initial Z00.00 ; Chronic obstructive pulmonary disease, unspecified J44.9 ; Back pain M54.9 ; Chronic pain syndrome G89.4 ; Essential hypertension I10 ; Low serum testosterone E29.1 ; Smoking history Z87.891 and Encounter for immunization Z23 [place] [id number] [place] [address] 88962- 2230 Jul, [place] [id number] [place] [address] 16242- 4350 Jun, Back pain M54.9 [place] [id number] [place] [address] 83915- 3605 May, Back pain M54.9 [place] [id number] [place] [address] 37616- 8993 13 May, 2017 Exposure to the flu Z20.828 [facility] [place] [id number] [place] [address] 68425- 2448 May, Chronic pain syndrome G89.4 ; Back pain M54.9 and Chronic obstructive pulmonary disease, unspecified J44.9 [facility] [place] [address] 15112- 1093 May, Back pain M54.9 [facility] [place] [address] 03274- 5092 Apr, Back pain M54.9 [facility] [place] [address] 00705- 6852 Mar, Back pain M54.9 [facility] [place] [address] 59286- 1195 Feb, Back pain M54.9 [facility] [place] [id number] [place] [address] 29308- 3109 Jan, Back pain M54.9 [facility] [place] [id number] [place] [address] 40010- 4320 Dec, Chronic obstructive pulmonary disease, unspecified J44.9 and Back pain M54.9 [facility] [place] [id number] [place] [address] 03998- 6693 Dec, Back pain M54.9 [facility] [place] [id number] [place] [address] 44179- 1577 Nov, Back pain M54.9 [facility] [place] [address] 87401- 6756 Oct, Essential hypertension I10 [facility] [place] [id number] [place] [address] 56334- 2044 Oct, Back pain M54.9 [facility] [place] [address] [place] [address]- 5499 Oct, [facility] [place] [id number] [place] [address] 95198- 4698 Oct, [facility] [place] [id number] [place] [address] 23650- 4596 Sep, Back pain M54.9 [facility] [place] [id number] [place] [address] 81214- 0001 August, [facility] [place] [id number] [place] [address] 07376- 9857 August, Essential hypertension I10 [facility] [place] [id number] [place] [address] 50000- 5434 August, Other dorsalgia M54.89 [facility] [place] [id number] [place] [address] 45658- 7163 August, Back pain M54.9 ; Chronic obstructive pulmonary disease, unspecified J44.9 and Low serum testosterone E29.1 [facility] [place] [id number] [place] [address] 97520- 8335 Jul, Other dorsalgia M54.89 [facility] [place] [id number] [place] [address] 10076- 0479 Jun, Dorsalgia, unspecified M54.9 [facility] [place] [id number] [place] [address] 09826- 1047 Jun, Dorsalgia, unspecified M54.9 [facility] [place] [id number] [place] [address] 26915- 2615 Jun, [facility] [place] [id number] [place] [address] 90909- 5752 Jun, Chronic obstructive pulmonary disease, unspecified J44.9 [facility] [place] [address] [address]- 5309 Jun, Back pain M54.9 [facility] [place] [id number] [place] [address] 17978- 2247 May, Chronic obstructive pulmonary disease, unspecified J44.9 [facility] [place] [address] 55718- 0165 May, [facility] [place] [id number] [place] [address] 32086- 7827 May, Other dorsalgia M54.89 [facility] [place] [address] 99313- 4075 Apr, [facility] [place] [id number] [place] [address] 95409- 7931 Apr, Other dorsalgia M54.89 [facility] [place] [id number] [place] [address] 50628- 6840 Mar, Chronic obstructive pulmonary disease, unspecified J44.9 ; Essential hypertension I10 and Back pain M54.9 [facility] [place] [id number] [place] [address] 03599- 2880 Mar, [facility] [place] [id number] [place] [address] 88444- 0053 Mar, Dorsalgia, unspecified M54.9 [facility] [place] [id number] [place] [address] 73741- 1817 Mar, Edema R60.9 [facility] [place] [id number] [place] [address] 31118- 1614 Feb, [facility] [place] [id number] [place] [address] 87624- 5510 Feb, Other dorsalgia M54.89 [facility] [place] [id number] [place] [address] 67349- 2772 Jan, Encounter for immunization Z23 and Chronic obstructive pulmonary disease, unspecified J44.9 [facility] [place] [id number] [place] [address] 62654- 4434 Jan, [facility] [place] [address] [address]- 7031 14 Dec, 2015 [facility] [place] [id number] [place] [address] 33847- 4550 13 Dec, 2015 [facility] [place] [id number] [place] [address] 51092- 7992 13 Dec, 2015 Essential hypertension I10 and Back pain M54.9 [facility] [place] [id number] [place] [address] 11161- 8669 17 Nov, 2015 [facility] [place] [id number] [place] [address] 07111- 2957 Nov, [facility] [place] [id number] [place] [address] 10236- 4763 Oct, Other dorsalgia M54.89 [facility] [place] [id number] [place] [address] 95147- 7824 Oct, [facility] [place] [id number] [place] [address] 09650- 8510 Sep, [facility] [place] [id number] [place] [address] 69936- 1646 Sep, [facility] [place] [id number] [place] [address] 53491- 9380 Sep, [facility] [place] [id number] [place] [address] 50898- 0162 August, [facility] [place] [id number] [place] [address] 41663- 4791 August, Other dorsalgia M54.89 [facility] [place] [id number] [place] [address] 52802- 1948 August, [facility] [place] [id number] [place] [address] 35134- 9403 August, Chronic obstructive pulmonary disease, unspecified J44.9 and Back pain M54.9 [facility], [place] [id number] [place] [address] 99891- 0892 August, [facility] [place] [id number] [place] [address] 54864- 8652 August, [facility] [place] [id number] [place] [address] 56290- 3292 August, Chronic obstructive pulmonary disease, unspecified J44.9 [facility] [place] [id number] [place] [address] 68779- 3143 Jul, Other dorsalgia M54.89 [facility] [place] [id number] [place] [address] 63160- 9640 Jul, Insomnia G47.00 [facility] [place] [id number] [place] [address] 72749- 3090 Jun, Other dorsalgia M54.89 [facility] [place] [id number] [place] [address] 45115- 5374 Jun, Other dorsalgia M54.89 [facility] [place] [id number] [place] [address] 17418- 2754 May, COPD (chronic obstructive pulmonary disease) J44.9 and Bronchitis J40 [facility] [place] [id number] [place] [address] 39606- 9417 May, Chronic obstructive pulmonary disease, unspecified J44.9 [facility] [place] [id number] [place] [address] 28522- 8654 May, [facility] [place] [id number] [place] [address] 75564- 2547 May, Other dorsalgia M54.89 [facility] [place] [id number] [place] [address] 18016- 8560 Apr, Chronic obstructive pulmonary disease, unspecified J44.9 [facility] [place] [id number] [place] [address] 87423- 9770 Apr, [facility] [place] [id number] [address]- 0822 14 Mar, 2015 [facility] [place] [address] [address]- 3488 14 Mar, 2015 COPD (chronic obstructive pulmonary disease) J44.9 ; Back pain M54.9 and Edema R60.9 [facility], [place] [id number] [address]- 0185 11 Mar, 2015 [facility] [place] [id number] [place] [address] 30796- 4944 Mar, [facility] [place] [id number] [place] [address] 74266- 4374 Feb, [facility] [place] [id number] [place] [address] 83198- 7382 Feb, [facility] [place] [id number] [place] [address] 14608- 3805 Feb, [facility] [place] [id number] [place] [address] 49111- 9370 Jan, [facility] [place] [id number] [place] [address] 69002- 8527 Jan, [facility] [place] [id number] [place] [address] 39980- 2211 Jan, [facility], [place] [address] [address]- 8113 24 Dec, 2014 Chronic airway obstruction, not elsewhere classified 496 ; Back pain 724.5 ; Flu vaccine need V04.81 and Prophylactic vaccination against streptococcus pneumoniae and influenza V06.6 [facility], [place] [address] [address]- 9337 Dec, [facility], [place] [id number] [place] [address] 63445- 5621 Dec, [facility], [place] [address] [address]- 2862 Dec, [facility], [place] [address] [place] [address]- 4821 Nov, [facility] [id number] [place] [address]- 0313 Nov, [facility] [id number] [place] [address]- 2615 Nov, [facility] [address] [place] [address]- 6198 Oct, [facility] [address] [place] [address]- 2538 Oct, [facility] [address] [place] [address]- 3205 Oct, Unspecified arthropathy, 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 and Chronic airway obstruction, not elsewhere classified 496 [facility], [place] [address] [place] [address]- 7759 Oct, [facility], [place] [address] [address]- 1487 Sep, [facility], [place] [address] [address]- 8353 Sep, [facility] [address] [address]- 6456 Sep, [facility] [place] [address] [address]- 1856 August, [facility] [id number] [address]- 0954 August, [facility] [address] [place] [address]- 4451 August, [facility] [address] [place] [address]- 2186 August, [facility] [id number] [place] [address]- 2770 August, [facility] [place] [facility] [address] [id number] [place] [address]- 1987 14 Jul, 2014 [facility] [place] [facility] [address] [id number] [place] [address]- 8015 13 Jul, 2014 [facility] [place] [facility] [address] [id number] [place] [address]- 4642 Jun, [facility] [place] [facility] [address] [id number] [place] [address]- 1087 Jun, [facility] [place] [facility] [address] [id number] [place] [address]- 9564 Jun, [facility] [place] [facility] [address] [id number] [place] [address]- 1714 Jun, [facility] [place] [facility] [address] [facility] [id number] [place] [address]- 9910 Jun, [facility] [place] [facility] [address] [id number] [place] [address]- 3262 Jun, [facility] [place] [facility] [address] [id number] [place] [address]- 1804 May, [facility] [place] [facility] [address] [id number] [place] [address]- 6192 May, [facility] [place] [facility] [address] [facility] [id number] [place] [address]- 4589 May, [facility] [place] [facility] [address] [id number] [place] [address]- 7361 May, [facility] [place] [facility] [address] [id number] [place] [address]- 4225 May, [facility] [place] [facility] [address] [id number] [place] [address]- 5004 Apr, [facility] [place] [facility] [address] [id number] [place] [address]- 4051 Apr, [facility] [place] [facility] [address] [id number] [place] [address]- 0843 Apr, [facility] [place] [facility] [address] [id number] [place] [address]- 8603 Apr, [facility] [place] [facility] [address] [id number] [place] [address]- 2197 Apr, [facility] [place] [facility] [address] [id number] [place] [address]- 9826 Apr, [facility] [place] [facility] [address] [id number] [place] [address]- 0879 Apr, [facility] [place] [facility] [address] [id number] [place] [address]- 4918 Mar, [facility] [place] [facility] [address] [id number] [place] [address]- 1454 Mar, [facility] [place] [facility] [address] [id number] [place] [address]- 9236 Mar, [facility] [place] [facility] [address] [id number] [place] [address]- 9524 Mar, [facility] [place] [facility] [address] [id number] [place] [address]- 3995 Mar, [facility] [place] [facility] [address] [id number] [place] [address]- 2374 Mar, [facility] [place] [facility] [address] [id number] [place] [address]- 8827 Mar, [facility] [place] [facility] [address] [id number] [place] [address]- 5962 Mar, [facility] [place] [facility] [address] [id number] [place] 7247 Mar, [facility] [place] [facility] [address] [id number] [place] 3924 Mar, [facility] [place] [facility] [address] [id number] [place] 6624 Feb, [facility] [place] [facility] [address] [id number] [place] [address]- 6411 17 Feb, 2014 [facility] [place] [facility] [address] [id number] [place] [address]- 9610 20 Jan, 2014 [facility] [place] [facility] [address] [id number] [place] [address]- 7063 20 Jan, 2014 [facility] [place] [facility] [address] [id number] [place] [address]- 0423 14 Jan, 2014 [facility] [place] [facility] [address] [id number] [place] [address]- 7587 14 Jan, 2014 [facility] [place] [facility] [address] [id number] [place] [address]- 7719 14 Jan, 2014 [facility] [place] [facility] [address] [id number] [place] [address]- 4985 14 Jan, 2014 [facility] [place] [facility] [address] [id number] [place] [address]- 7045 Jan, [facility] [place] [facility] [address] [id number] [place] [address]- 8244 Jan, [facility] [place] [facility] [address] [id number] [place] [address]- 3800 Jan, [facility] [place] [facility] [address] [id number] [place] [address]- 2443 Jan, [facility] [place] [facility] [address] [id number] [place] [address]- 4888 Jan, [facility] [place] [facility] [address] [id number] [place] [address]- 5663 Jan, [facility] [place] [facility] [address] [id number] [place] 1958 Dec, [facility] [place] [facility] [address] [id number] [place] [address]- 5005 Dec, [facility] [place] [facility] [address] [id number] [place] [address]- 5167 Dec, [facility] [place] [facility] [address] [id number] [place] [address]- 2872 Dec, [facility] [place] [facility] [address] [id number] [place] [address]- 9217 Dec, [facility] [place] [facility] [address] [id number] [place] [address]- 7847 Nov, [facility] [place] [facility] [address] [id number] [place] [address]- 0723 Nov, [facility] [place] [facility] [address] [id number] [place] [address]- 3091 Nov, [facility] [place] [facility] [address] [id number] [place] [address]- 1111 Nov, [facility] [place] [facility] [address] [id number] [place] [address]- 7322 Oct, [facility] [place] [facility] [address] [id number] [place] [address]- 2603 Oct, [facility] [place] [facility] [address] [id number] [place] [address]- 5117 Oct, [facility] [place] [facility] [address] [id number] [place] [address]- 6619 Oct, [facility] [place] [facility] [address] [id number] [place] [address]- 1727 Oct, [facility] [place] [facility] [address] [id number] [place] [address]- 3020 Oct, [facility] [place] [facility] [address] [id number] [place] [address]- 3980 Oct, [facility] [place] [facility] [address] [id number] [place] [address]- 5980 Oct, [facility] [place] [facility] [address] [id number] [place] [address]- 7929 Oct, [facility] [place] [facility] [address] [id number] [place] [address]- 4287 Oct, [facility] [place] [facility] [address] [id number] [place] [address]- 7436 Sep, [facility] [place] [facility] [address] [id number] [place] [address] Sep, [facility] [place] [facility] [address] [id number] [place] [address] Sep, [facility] [place] [facility] [address] [id number] [place] [address] Sep, [facility] [place] [facility] [address] [id number] [place] [address] Sep, [facility] [place] [facility] [address] [id number] [place] [address] Sep, [facility] [place] [facility] [address] [id number] [place] [address] August, [facility] [place] [facility] [address] [id number] [place] [address] August, [facility] [place] [facility] [address] [id number] [place] [address] August, [facility] [place] [facility] [address] [id number] [place] [address] August, [facility] [place] [facility] [address] [id number] [place] [address] August, [facility] [place] [facility] [address] [id number] [place] [address] August, [facility] [place] [facility] [address] [id number] [place] [address] Jul, [facility] [place] [facility] [address] [id number] [place] [address] Jul, [facility] [place] [facility] [address] [id number] [place] [address] Jul, [facility] [place] [facility] [address] [id number] [place] [address] Jul, [facility] [place] [facility] [address] [id number] [place] [address] Jul, [facility] [place] [facility] [address] [id number] [place] [address] Jul, [facility] [place] [facility] [address] [id number] [place] [address] Jul, [facility] [place] [facility] [address] [id number] [place] [address] Jul, [facility] [place] [facility] [address] [id number] [place] [address] Jul, [facility] [place] [facility] [address] [facility] [id number] [place] [address]- [address] Jun, [facility] [place] [facility] [address] [id number] [place] [address] Jun, [facility] [place] [facility] [address] [id number] [place] [address] Jun, [facility] [place] [facility] [address] [id number] [place] [address] May, [facility] [place] [facility] [address] [facility] [id number] [place] [address] May, [facility] [place] [facility] [address] [facility] [id number] [place] [address]- [address] May, [facility] [place] [facility] [address] [id number] [place] [address] May, [facility] [place] [facility] [address] [id number] [place] [address] May, [facility] [place] [facility] [address] [id number] [place] [address]- [address] May, [facility] [place] [facility] [address] [facility] [id number] [place] [address] Apr, [facility] [address] [id number] [place] [address] Apr, [facility] [place] [facility] [address] [id number] [place] [address] Apr, [facility] [place] [facility] [address] [id number] [place] [address] Apr, [facility] [place] [facility] [address] [id number] [place] [address] Apr, [facility] [place] [facility] [address] [id number] [place] [address] Apr, [facility] [place] [facility] [address] [id number] [place] [address] Apr, [facility] [address] [id number] [place] [address] Apr, [facility] [place] [facility] [address] [id number] [place] [address] Apr, [facility] [address] [id number] [place] [address] Apr, [facility] [place] [facility] [address] [id number] [place] [address] Mar, [facility] [place] [facility] [address] [id number] [place] [address] Mar, [facility] [place] [facility] [address] [id number] [place] [address]- [address] Mar, [facility] [place] [facility] [address] [id number] [place] [address] Mar, [facility] [place] [facility] [address] [id number] [place] [address] Mar, [facility] [place] [facility] [address] [address] [id number] [place] [address] Mar, [facility] [place] [facility] [address] [id number] [place] [address] Mar, [facility] [address] [id number] [place] [address] Mar, [facility] [place] [facility] [address] [id number] [place] [address] 12[address] Mar, [facility] [address] [id number] [place] [address] 46[address] Mar, [facility] [place] [facility] [address] [id number] [place] [address] 8268 Mar, [facility] [address] [id number] [place] [address] Feb, [facility] [place] [facility] [address] [id number] [place] [address] Feb, [facility] [place] [facility] [address] [id number] [place] [address] Feb, [facility] [address] [id number] [place] [address] 34[address] Feb, [facility] [place] [facility] [address] [id number] [place] [address] 8425 Feb, [facility] [address] [id number] [place] [address] 9364 Feb, [facility] [place] [facility] [address] [id number] [place] [address] 49[address] Feb, [facility] [place] [facility] [address] [id number] [place] [address] 5[address] Feb, [facility] [place] [facility] [address] [id number] [place] [address] Feb, [facility] [place] [facility] [address] [id number] [place] [address] 40[address] Feb, [facility] [place] [facility] [address] [id number] [place] [address] 4[address] Feb, [facility] [place] [facility] [address] [id number] [place] [address] 1490 Feb, [facility] [place] [facility] [address] [id number] [place] [address] 4[address] Jan, [facility] [place] [facility] [address] [id number] [place] [address] 8835 Jan, [facility] [place] [facility] [address] [id number] [place] [address]- 9892 Jan, [facility] [place] [facility] [address] [id number] [place] [address] 0154 Jan, [facility] [place] [facility] [address] [id number] [place] [address] 6[address] Jan, [facility] [place] [facility] [address] [id number] [place] [address] 5324 Jan, [facility] [place] [facility] [address] [id number], [place] [address] Jan, [facility] [place] [facility] [address] [id number] [place] [address] 0339 Jan, [facility] [place] [facility] [address] [id number], [place] [address] Jan, [facility] [place] [facility] [address] [id number], [place] [address] 27 Dec, 2012 [facility] [place] [facility] [address] [id number], [place] [address] 18 Sep2012 [facility] [place] [facility] [address] [id number] [place] [address]- 6870 17 Sep2012 [facility] [place] [facility] [address] [id number], [place] [address] 11 Sep2012 [facility] [place] [facility] [address] [id number] [place] [address] 05 Sep, 2012 [facility] [place] [facility] [address] [id number] [place] [address] 7[address] Nov, [facility] [place] [facility] [address] [id number] [place] [address]- 8752 Nov, [facility] [place] [facility] [address] [id number] [place] [address] 6407 Oct, [facility] [place] [facility] [address] [id number] [place] [address] 3457 Oct, [facility] [place] [facility] [address] [id number] [place] [address] 4342 Oct, [facility] [place] [facility] [address] [id number] [place] [address] 6778 Oct, [facility] [place] [facility] [address] [id number] [place] [address]- 7290 Oct, [facility] [place] [facility] [address] [id number] [place] [address] 7423 Oct, [facility] [place] [facility] [address] [id number] [place] [address] 5199 Sep, [facility] [place] [facility] [address] [id number] [place] [address]- 1041 24 Sep, 2012 [facility] [place] [facility] [address] [id number] [place] [address]- 9396 Sep, [facility] [place] [facility] [address] [id number] [place] [address]- 3146 Sep, [facility] [place] [facility] [address] [id number] [place] [address]- 1858 14 Sep, 2012 [facility] [place] [facility] [address] [id number] [place] [address]- 8782 Sep, [facility] [place] [facility] [address] [id number] [place] [address]- 0926 Sep, [facility] [place] [facility] [address] [id number] [place] [address]- 7529 August, [facility] [place] [facility] [address] [id number] [place] [address] 7869 August, [facility] [address] [id number] [place] [address] 4860 August, [facility] [address] [id number] [place] [address] 5671 August, [facility] [address] [id number] [place] [address] 3838 August, [facility] [address] [id number] [place] [address] 1167 August, [facility] [address] [id number] [place] [address] 2749 Jul, [facility] [address] [id number] [place] [address]- 2790 Jul, [facility] [address] [id number] [place] [address]- 3560 Jul, [facility] [address] [id number] [place] [address]- 9029 Jul, [facility] [address] [id number] [place] [address] 7509 Jul, [facility] [address] [id number] [place] [address] 6019 Jul, [facility] [address] [id number] [place] [address]- 0499 28 Jun, 2012 [facility] [address] [id number] [place] [address]- 6770 22 Jun, 2012 [facility] [place] [facility] [address] [id number] [place] [address] 18 Jun, 2012 [facility] [address] [id number] [place] [address]- 9044 08 Jun, 2012 [facility] [address] [id number] [place] [address]- 3161 Jun, [facility] [address] [id number] [place] [address]- 8599 Jun, [facility] [address] [id number] [place] [address]- 4692 May, [facility] [address] [id number] [place] [address]- 9851 May, [facility] [address] [id number] [place] [address]- 8626 May, [facility] [address] [id number] [place] [address]- 8091 May, [facility] [address] [id number] [place] [address]- 5841 Apr, [facility] [address] [id number] [place] [address]- 7468 Apr, [facility] [address] [id number] [place] [address]- 3963 Apr, [facility] [address] [id number] [place] [address]- 5963 Apr, [facility] [address] [id number] [place] [address]- 8653 Apr, [facility] [address] [id number] [place] [address]- 0815 Apr, [facility] [place] [facility] [address] [id number] [place] [address]- 9447 Apr, [facility] [place] [facility] [address] [id number] [place] [address]- 5819 Apr, [facility] [place] [facility] [address] [id number] [place] [address]- 9616 Apr, [facility] [place] [facility] [address] [id number] [place] [address]- 4036 Mar, [facility] [place] [facility] [address] [id number] [place] [address]- 1525 Mar, [facility] [place] [facility] [address] [id number] [place] [address]- 9696 Mar, [facility] [place] [facility] [address] [id number] [place] [address]- 5976 Mar, [facility] [place] [facility] [address] [id number] [place] [address]- 2126 Mar, [facility] [place] [facility] [address] [id number] [place] [address]- 8158 Mar, [facility] [place] [facility] [address] [id number] [place] [address]- 7309 Mar, [facility] [place] [facility] [address] [id number] [place] [address]- 6281 Mar, [facility] [place] [facility] [address] [id number] [place] [address]- 1452 Mar, [facility] [place] [facility] [address] [id number] [place] [address]- 4313 Mar, [facility] [place] [facility] [address] [id number] [place] [address]- 8047 Feb, [facility] [place] [facility] [address] [id number] [place] [address]- 1762 27 Feb, 2012 [facility] [place] [facility] [address] [id number] [place] [address]- 6221 Feb, [facility] [place] [facility] [address] [id number] [place] [address]- 6291 26 Feb, 2012 [facility] [place] [facility] [address] [id number] [place] [address]- 5876 15 Feb, 2012 [facility] [place] [facility] [address] [id number] [place] [address]- 8666 15 Feb, 2012 [facility] [place] [facility] [address] [id number] [place] [address]- 0359 Feb, [facility] [place] [facility] [address] [id number] [place] [address]- 1138 Jan, [facility] [place] [facility] [address] [id number] [place] [address]- 5799 Jan, [facility] [place] [facility] [address] [id number] [place] [address]- 7355 Jan, [facility] [place] [facility] [address] [id number] [place] [address]- 3583 Jan, [facility] [place] [facility] [address] [id number] [place] [address]- 8676 Jan, [facility] [place] [facility] [address] [id number] [place] [address]- 5948 Jan, [facility] [place] [facility] [address] [id number] [place] [address]- 5882 Jan, [facility] [place] [facility] [address] [id number], [place] [address]- 7904 Jan, [facility] [place] [facility] [address] [id number] [place] [address]- 7997 18 Jan, 2012 [facility] [place] [facility] [address] [id number], [place] [address]- 3812 Jan, [facility] [place] [facility] [address] [id number], [place] [address]- 8588 27 Sep, 2011 [facility] [place] [facility] [address] [id number], [place] [address]- 4485 20 Sep, 2011 [facility] [place] [facility] [address] [id number] [place] [address]- 8213 17 Sep2011 [facility] [place] [facility] [address] [id number], [place] [address]- 1118 06 Sep, 2011 [facility] [place] [facility] [address] [facility] [id number], [place] [address]- 9070 05 Sep, 2011 [facility] [place] [facility] [address] [id number] [place] [address]- 8552 Dec, [facility] [place] [facility] [address] [id number] [place] [address]- 7405 Nov, [facility] [place] [facility] [address] [id number] [place] [address]- 7591 Nov, [facility] [place] [facility] [address] [id number] [place] [address]- 3237 Nov, [facility] [place] [facility] [address] [id number] [place] [address]- 5753 Nov, [facility] [place] [facility] [address] [id number] [place] [address]- 4777 Oct, [facility] [place] [facility] [address] [id number] [place] [address]- 8672 Oct, [facility] [place] [facility] [address] [id number] [place] [address]- 8922 Oct, [facility] [place] [facility] [address] [id number] [place] [address]- 0353 Oct, [facility] [place] [facility] [address] [id number] [place] [address]- 7086 Oct, [facility] [place] [facility] [address] [id number] [place] [address]- 1502 Oct, [facility] [place] [facility] [address] [id number] [place] [address]- 6126 Oct, [facility] [place] [facility] [address] [id number] [place] [address] 2540 Oct, [facility] [place] [facility] [address] [id number] [place] [address]- 0334 Sep, [facility] [place] [facility] [address] [id number] [place] [address]- 6099 Sep, [facility] [place] [facility] [address] [id number] [place] [address]- 3947 Sep, [facility] [place] [facility] [address] [facility] [id number], [place] [address]- 8669 Sep, [facility] [place] [address] [facility] [address] [id number] [address]25 August, [facility] [place] [address] [facility] [address] [id number], [place] [address]- 2676 August, [facility] [place] [address] [address] 3214 Jul, [facility] [place] [address] [facility] [address] [id number] [place] [address]- 3951 Jun, [facility] [place] [id number] [place] [address]- 2551 Jun, [facility] [place] [id number], [place] [address]- 9176 Jun, [facility] [place] [id number], [place] [address]- 7908 Jun, [facility] [place] [address], [place] [address]- 4368 Jun, [facility] [place] [address], [place] [address]- 9824 Jun, [facility] [place] [address], [place] [address]- 7717 Jun, [facility] [place] [address], [place] [address]- 6931 Jun, [facility] [place] [address] [id number], [place] [address]- 1819 May, [facility] [place] [address] [address] 8737 May, [facility] [place] [address] [id number] [address] Mar, IMMUNIZATIONS No Known Immunizations SOCIAL HISTORY Never Assessed REASON FOR VISIT MsContin and Hydrocodone 05/07 PLAN OF CARE VITAL SIGNS MEDICATIONS Medication Instructions Dosage Frequency Start Date End Date Duration Status MS Contin 60 mg Orally every 12 hrs 1 tablet 12h Apr, 28 days Active Hydrocodone-Acetaminophen 10-325 MG Orally every 4 hours 1 tablet 4h Apr 28 days Active RESULTS No Results PROCEDURES [...]
--- OUTSIDE RECORDS SUMMARY | 2018-06-11 16:19 | XMS REPORT ---
Author Author SARA CONROY [facility] Address [address] [place] [address] Care Team Providers Care Adhesion Tester Name Role Phone SARA CONROY Unavailable PROBLEMS Type Condition ICD9-CM Code [id number] Code Onset Dates Condition Status SNOMED Code Problem Low serum testosterone E29.1 Active 652099304 Problem Essential hypertension I10 Active 09924612 Problem Chronic obstructive pulmonary disease, unspecified J44.9 Active 28788294 Problem Back pain M54.9 Active 717671553 ALLERGIES Substance Reaction Event Type Date Status Tramadol HCl itching Drug Allergy August, Active Soma Makes pt mean Drug Allergy August, Active Boniva rash Drug Allergy August, Active Fentanyl Patches Unknown Non Drug Allergy August, Active SOCIAL HISTORY Never Assessed PLAN OF CARE Activity Details Follow Up 3 Months Reason: VITAL SIGNS Height 68 in 2016-09-14 Weight 207 lbs 2016-09-14 Temperature 98.3 degrees Fahrenheit 2016-09-14 Heart Rate 100 bpm 2016-09-14 Respiratory Rate 26 2016-09-14 BMI 31.47 kg/m2 2016-09-14 Blood pressure systolic 132 mmHg 2016-09-14 Blood pressure diastolic 78 mmHg 2016-09-14 MEDICATIONS Medication Instructions Dosage Frequency Start Date End Date Duration Status Colace 100 MG Orally Once a day 1 capsule as needed 24h Active Breo Ellipta 100-25 MCG/INH Inhalation Once a day 1 puff 24h Active Turmeric 500 MG Orally 2 times a day 1 capsule 12h Active Calcium Carbonate-Vitamin D 600-200 MG-UNIT Orally twice a day 1 tablet with food 12h Active Baclofen 10 mg Orally 3 times a day 1 tablet 8h Active Excedrin Migraine 250-250-65 MG Orally daily PRN 1 tablet Active Ibuprofen 200 mg Orally every 4 hrs 1 tablet as needed 4h Active Lasix 20 mg Orally Once a day, PRN 1 tablet 30 Active Benazepril HCl 20 MG TAKE ONE TABLET BY MOUTH TWICE DAILY. 30 Active Oxygen 6 inhalations all the time Active Zolpidem Tartrate 5 MG TAKE ONE TABLET BY MOUTH ONCE DAILY NEEDED 30 Active Glucosamine 1500 Complex - Orally Once a day 1 capsule 24h Active Promethazine HCl 25 MG Orally every 12 hrs 1 tablet as needed 12h 30 Active Citalopram Hydrobromide 20 MG TAKE ONE TABLET BY MOUTH ONCE DAILY 30 Active AndroGel Pump 20.25 MG/ACT (1.62%) Transdermal Once a day APPLY ONE PUMP ( 20.25MG) TO ONE UPPER ARM AND SHOULDER ONCE DAILY 24h Active Hydrocodone-Acetaminophen 10-325 MG Orally every 4 hours 1 tablet 4h August 28 days Active Ventolin HFA 108 (90 Base) MCG/ACT Inhalation every 4 hrs 2 puffs as needed 4h Active Cetirizine HCl 10 MG Orally Once a day 1 tablet 24h Active Incruse Ellipta 62.5 MCG/INH INHALE ONE PUFF BY MOUTH ONCE DAILY 30 Active Mucus Relief 400 mg Orally every 4 hrs 1 tablet as needed 4h Active Omeprazole 20 mg Orally Once a day 1 tablet 24h Active Mens Multi Vitamin & Mineral Active MS Contin 60 mg Orally every 12 hrs 1 tablet 12h August, 28 days Active RESULTS Name Result Date Reference Range [employer] PROCEDURES Procedure Date Ordered Result Body Site No Charge September 14, 2016 [facility] VISIT ESTABLISHED PATIENT September 14, 2016 IMMUNIZATIONS No Known Immunizations MEDICAL (GENERAL) HISTORY [...]
--- OUTSIDE RECORDS SUMMARY | 2018-06-11 16:20 | XMS REPORT ---
Author Author SARA CONROY [facility] Address [address] [place] [address] Care Team Providers Care Car Wash Attendant Name Role Phone SARA CONROY Unavailable PROBLEMS Type Condition ICD9-CM Code OOC97-IN Code Onset Dates Condition Status SNOMED Code Problem Low serum testosterone E29.1 Active 501927025 Problem Essential hypertension I10 Active 51527979 Problem Chronic obstructive pulmonary disease, unspecified J44.9 Active 11314769 Problem Back pain M54.9 Active 110798958 ALLERGIES Substance Reaction Event Type Date Status Tramadol HCl itching Drug Allergy May, Active Soma Makes pt mean Drug Allergy May, Active Boniva rash Drug Allergy May, Active Fentanyl Patches Unknown Non Drug Allergy May, Active SOCIAL HISTORY Never Assessed PLAN OF CARE Activity Details Follow Up 3 Months Reason: VITAL SIGNS Height 68 in 2016-06-20 Weight 205.0 lbs 2016-06-20 Temperature 98.5 degrees Fahrenheit 2016-06-20 Heart Rate 103 bpm 2016-06-20 Respiratory Rate 28 2016-06-20 Oximetry 98 % 2016-06-20 BMI 31.17 kg/m2 2016-06-20 Blood pressure systolic 160 mmHg 2016-06-20 Blood pressure diastolic 91 mmHg 2016-06-20 MEDICATIONS Medication Instructions Dosage Frequency Start Date End Date Duration Status AndroGel Pump 20.25 MG/ACT (1.62%) Transdermal Once a day APPLY ONE PUMP ( 20.25MG) TO ONE UPPER ARM AND SHOULDER ONCE DAILY 24h Active Mucus Relief 400 mg Orally every 4 hrs 1 tablet as needed 4h Active Ventolin HFA 108 (90 Base) MCG/ACT Inhalation every 4 hrs 2 puffs as needed 4h Active PredniSONE 10 mg Orally Once a day begin by taking 6 tabs and decrease by 1 tablet every other day. 24h Active Baclofen 10 mg Orally 3 times a day 1 tablet 8h Active Promethazine HCl 25 MG Orally every 12 hrs 1 tablet as needed 12h 30 Active Hydrocodone-Acetaminophen 10-325 MG Orally every 4 hours 1 tablet 4h 06 May Active Omeprazole 20 mg Orally Once a day 1 tablet 24h Active Calcium Carbonate-Vitamin D 600-200 MG-UNIT Orally twice a day 1 tablet with food 12h Active Mens Multi Vitamin & Mineral Active Excedrin Migraine 250-250-65 MG Orally daily PRN 1 tablet Active Lasix 20 mg Orally Once a day, PRN 1 tablet 30 Active Colace 100 MG Orally Once a day 1 capsule as needed 24h Active Glucosamine 1500 Complex - Orally Once a day 1 capsule 24h Active Benazepril HCl 20 mg Orally 2 times a day 1 tablet 12h Active Ibuprofen 200 mg Orally every 4 hrs 1 tablet as needed 4h Active Levofloxacin 750 MG Orally Once a day 1 tablet 24h 18 May, 2016 May, Active Klor-Con M10 10 MEQ Orally, with lasix Once a day, Prn 1 tablet with food Mar, Active Cetirizine HCl 10 MG Orally Once a day 1 tablet 24h Active Breo Ellipta 100-25 MCG/INH Inhalation Once a day 1 puff 24h Active MS Contin 60 mg Orally every 12 hrs 1 tablet 12h May, Active Oxygen 6 inhalations all the time Active Turmeric 500 MG Orally 2 times a day 1 capsule 12h Active RESULTS No Results PROCEDURES Procedure Date Ordered Result Body Site MEASURE BLOOD OXYGEN LEVEL Jun 20, 2016 [facility] VISIT ESTABLISHED PATIENT Jun 20, 2016 IMMUNIZATIONS No Known Immunizations MEDICAL (GENERAL) [...]
--- OUTSIDE RECORDS SUMMARY | 2018-06-11 16:20 | XMS REPORT ---
Author Author SARA CONROY Organization [employer] Address Unknown Phone Unavailable Care Team Providers Care Manager Name Role Phone SARA CONROY CP [...] Instructions Start Date End Date Status Dosage ProAir HFA [facility] [id number] 108 (90 Base) MCG/ACT Inhalation every 4 hrs 2 puffs as needed Spiriva HandiHaler [facility] [id number] 18 MCG Inhalation Once a day 1 capsule Results No Known Results Summary Purpose [employer] Submission
--- OUTSIDE RECORDS SUMMARY | 2018-06-11 16:20 | XMS REPORT ---
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
--- OUTSIDE RECORDS SUMMARY | 2018-06-11 16:20 | XMS REPORT ---
Author Author SARA CONROY Organization [employer] Address Unknown Phone Unavailable Care Team Providers Care Supervisor In [employer] Testing Name Role Phone SARA CONROY CP Unavailable [...] Instructions Start Date End Date Status Dosage Promethazine HCl [facility] [address]-64 25 MG Orally every 12 hrs September 01, 2014 1 tablet as needed Breo Ellipta [facility] [address]-74 100-25 MCG/INH Inhalation Once a day September 1 puff Results No Known Results Summary Purpose [employer] Submission
--- OUTSIDE RECORDS SUMMARY | 2018-06-11 16:20 | XMS REPORT ---
Author Author AVANI NUNN Organization [facility] Address [address] [place] [address] Care Team Providers Care Microbiology Director Name Role Phone AVANI NUNN Unavailable PROBLEMS Type Condition ICD9-CM Code [id number] Code Onset Dates Condition Status SNOMED Code Problem Low serum testosterone E29.1 Active 927856411 Problem Essential hypertension I10 Active 81663606 Problem Chronic obstructive pulmonary disease, unspecified J44.9 Active 88056788 Problem Back pain M54.9 Active 830873501 ALLERGIES No Information SOCIAL HISTORY Never Assessed PLAN OF CARE VITAL SIGNS MEDICATIONS Medication Instructions Dosage Frequency Start Date End Date Duration Status Colace 100 MG Orally Once a day 1 capsule as needed 24h Active Hydrocodone-Acetaminophen 10-325 MG Orally every 4 hours 1 tablet 4h May Active Baclofen 10 mg Orally 3 times a day 1 tablet 8h Active Ibuprofen 200 mg Orally every 4 hrs 1 tablet as needed 4h Active Levofloxacin 750 MG Orally Once a day 1 tablet 24h May, May, Active Glucosamine 1500 Complex - Orally Once a day 1 capsule 24h Active Mens Multi Vitamin & Mineral Active Citalopram Hydrobromide 20 mg Orally Once a day 1 tablet 24h Active Ventolin HFA 108 (90 Base) MCG/ACT Inhalation every 4 hrs 2 puffs as needed 4h Active AndroGel Pump 20.25 MG/ACT (1.62%) Transdermal Once a day APPLY ONE PUMP ( 20.25MG) TO ONE UPPER ARM AND SHOULDER ONCE DAILY 24h Active Lasix 20 mg Orally Once a day, PRN 1 tablet 30 Active Benazepril HCl 20 mg Orally 2 times a day 1 tablet 12h Active Oxygen 6 inhalations all the time Active Omeprazole 20 mg Orally Once a day 1 tablet 24h Active Breo Ellipta 100-25 MCG/INH Inhalation Once a day 1 puff 24h Active Excedrin Migraine 250-250-65 MG Orally daily PRN 1 tablet Active Klor-Con M10 10 MEQ Orally, with lasix Once a day, Prn 1 tablet with food Mar, Active Turmeric 500 MG Orally 2 times a day 1 capsule 12h Active Cetirizine HCl 10 MG Orally Once a day 1 tablet 24h Active Mucus Relief 400 mg Orally every 4 hrs 1 tablet as needed 4h Active MS Contin 60 mg Orally every 12 hrs 1 tablet 12h 06 May, 2016 Active Calcium Carbonate-Vitamin D 600-200 MG-UNIT Orally twice a day 1 tablet with food 12h Active PredniSONE 10 mg Orally Once a day begin by taking 6 tabs and decrease by 1 tablet every other day. 24h Active Promethazine HCl 25 MG Orally every 12 hrs 1 tablet as needed 12h 30 Active RESULTS No Results PROCEDURES No Known [...] pneumonia 2012 Hospitalization History COPD exacerbation, acute bronchitis-[facility] 06/10/16
--- OUTSIDE RECORDS SUMMARY | 2018-06-11 16:20 | XMS REPORT ---
Author Author SARA CONROY Organization [facility] Address [address] [place] [address] Care Team Providers Care Wagon Person Name Role Phone SARA CONROY Unavailable PROBLEMS Type Condition ICD9-CM Code [id number] Code Onset Dates Condition Status SNOMED Code Problem Low serum testosterone E29.1 Active 560603144 Problem Essential hypertension I10 Active 00824029 Problem Chronic obstructive pulmonary disease, unspecified J44.9 Active 47133469 Problem Back pain M54.9 Active 454144518 ALLERGIES No Information SOCIAL HISTORY Never Assessed PLAN OF CARE VITAL SIGNS MEDICATIONS Medication Instructions Dosage Frequency Start Date End Date Duration Status Benazepril HCl 20 mg Orally Once a day 1 tablet 24h 90 days Active RESULTS No Results PROCEDURES No [...] pneumonia 2012 Hospitalization History COPD exacerbation, acute bronchitis-[facility] 06/10/16
--- OUTSIDE RECORDS SUMMARY | 2018-06-11 16:20 | XMS REPORT ---
Author Author SARA CONROY [facility] e[employer] Address Unknown Phone Unavailable Care Team Providers Care Strategy Execution Consultant Name Role Phone SARA CONROY CP Unavailable [...] Start Date End Date Status Dosage Hydrocodone-Acetaminophen [facility] [address]-73 10-325 MG Orally every June 1 tablet by Oral route every 4 hours PRN 28 day supply MS Contin [facility] [address]-37 60 MG Orally every 12 hrs July 06, 2014 1 tablet by Oral route every 12 hours 28 day supply Results No Known Results Summary Purpose eClinicalWorks Submission
--- OUTSIDE RECORDS SUMMARY | 2018-06-11 16:20 | XMS REPORT ---
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
--- OUTSIDE RECORDS SUMMARY | 2018-06-11 16:21 | XMS REPORT ---
Author Author SARA CONROY [facility] Address [address] [place] [address] Care Team Providers Care Cold Working Inspector Name Role Phone SARA CONROY Unavailable PROBLEMS Type Condition ICD9-CM Code GAG21-AI Code Onset Dates Condition Status SNOMED Code Problem Chronic pain syndrome G89.4 Active 096198377 Problem Low serum testosterone E29.1 Active 376085673 Problem Back pain M54.9 Active 047859202 Problem Essential hypertension I10 Active 79148709 Problem Chronic obstructive pulmonary disease, unspecified J44.9 Active [id number] ALLERGIES No Information ENCOUNTERS Encounter Location Date Diagnosis [place] [address] [address]- [address] Jul, Medicare annual wellness visit, initial Z00.00 [place] [address] [place] [id number] [place] [address] 66092- 8383 Jun, Back pain M54.9 [place] [address] [id number] [place] [address] 99853- 6379 28 May, 2017 Back pain M54.9 [place] [address] [id number] [place] [address] 44341- 1271 13 May, 2017 Exposure to the flu Z20.828 [place] [address] [id number] [place] [address] 16120- 2356 05 May, 2017 Chronic pain syndrome G89.4 ; Back pain M54.9 and Chronic obstructive pulmonary disease, unspecified J44.9 [place] [address] [place] [id number] [place] [address] 07913- 9505 May, Back pain M54.9 [place] [address] [place] [id number] [place] [address] 10850- 0834 Apr, Back pain M54.9 [facility] [address] [facility] [id number], [place] [address] 7944 Mar, Back pain M54.9 [facility] [address] [place] [id number] [place] [address] 05097- 3275 Feb, Back pain M54.9 [facility] [address] [place] [id number] [place] [address] 20565- 4518 Jan, Back pain M54.9 [facility] [address] [facility] [id number] [place] [address] 95207- 8229 Dec, Chronic obstructive pulmonary disease, unspecified J44.9 and Back pain M54.9 [facility] [address] [place] [id number] [place] [address] 74790- 5306 Dec, Back pain M54.9 [facility] [address] [place] [place] [id number] [place] [address] 03962- 3476 Nov, Back pain M54.9 [facility] [address] [place] [id number] [place] [address] 02683- 7687 Oct, Essential hypertension I10 [facility] [address] [place] [id number] [place] [address] 60242- 3806 Oct, Back pain M54.9 [facility] [address] [place] [place] [id number] [place] [address] 26949- 3164 Oct, [facility] [address] [place] [id number] [place] [address] 12135- 8817 Oct, [facility] [address] [facility] [id number] [place] [address] 63620- 3649 Sep, Back pain M54.9 [facility] [address] [place] [id number] [place] [address] 232217- 0777 August, [facility] [address] [id number] [address]- 6383 August, Essential hypertension I10 [facility] [address] [place] [id number] [address]- 1065 August, Other dorsalgia M54.89 [facility] [address] [place] [id number] [place] [address] 80347- 9001 August, Back pain M54.9 ; Chronic obstructive pulmonary disease, unspecified J44.9 and Low serum testosterone E29.1 [facility] [address] [place] [id number] [place] [address] 39695- 4419 Jul, Other dorsalgia M54.89 [facility] [address] [place] [id number] [place] [address] 48331- 3505 Jun, Dorsalgia, unspecified M54.9 [facility] [address] [place] [id number] [place] [address] 47223- 6767 Jun, Dorsalgia, unspecified M54.9 [facility] [address] [place] [id number] [place] [address] 21166- 8319 Jun, [facility] [address] [place] [id number] [place] [address] 79073- 1887 Jun, Chronic obstructive pulmonary disease, unspecified J44.9 [facility] [address] [place] [id number] [place] [address] 78230- 1900 Jun, Back pain M54.9 [facility] [id number] [place] [address] 09111- 3253 May, Chronic obstructive pulmonary disease, unspecified J44.9 [facility] [id number] [place] [address] 06915- 2346 May, [facility] [address] [place] [id number] [place] [address] 42925- 5460 May, Other dorsalgia M54.89 [facility] [id number] [place] [address] 49622- 0757 Apr, [facility] [address] [place] [id number] [place] [address] 02972- 1855 Apr, Other dorsalgia M54.89 [facility] [address] [place] [id number] [place] [address] 88802- 8829 Mar, Chronic obstructive pulmonary disease, unspecified J44.9 ; Essential hypertension I10 and Back pain M54.9 [facility] [address] [place] [id number] [place] [address] 78844- 9745 Mar, [facility] [address] [place] [id number] [place] [address] 38098- 8505 Mar, Dorsalgia, unspecified M54.9 [facility] [address] [place] [id number] [place] [address] 32257- 8874 Mar, Edema R60.9 [facility] [address] [place] [id number] [place] [address] 09120- 9375 Feb, [facility] [address] 81257- 6274 Feb, Other dorsalgia M54.89 [facility] [address] [place] [id number] [place] [address] 08322- 8497 Jan, Encounter for immunization Z23 and Chronic obstructive pulmonary disease, unspecified J44.9 [facility] [address] [place] [id number] [place] [address] 53608- 1272 Jan, [facility] [address] [place] [id number] [place] [address] 93738- 1886 [address] Dec, 2015 [facility] [address] [place] [id number] [place] [address] 59735- 2295 13 Dec, 2015 [facility] [address] [place] [id number] [place] [address] 25178- 3553 13 Dec, 2015 Essential hypertension I10 and Back pain M54.9 [facility] [address] [place] [id number] [place] [address] 00908- 4358 17 Nov, 2015 [facility] [address] [place] [id number] [place] [address] 11527- 8354 Nov, [facility] [address] [facility] [id number], [place] [address]- 3246 Oct, Other dorsalgia M54.89 [facility] [address] [facility] [id number], [place] [address]- 3486 Oct, [facility] [address] [id number] [address] 1298 Sep, [facility] [address] [facility] [id number] [place] [address] 22224- 7686 Sep, [facility] [address] [facility] [id number] [place] [address] 41894- 4843 Sep, [facility] [address] [place] [id number] [place] [address] 65516- 8138 August, [facility] [id number] [place] [address] 31493- 8700 August, Other dorsalgia M54.89 [facility] [address] [id number] [address]- 4821 August, [facility] [address] [place] [id number] [place] [address] 02462- 2423 August, Chronic obstructive pulmonary disease, unspecified J44.9 [address] Back pain M54.9 [facility] [address] [address]- 9184 August, [facility] [address] [address]- 4681 August, [facility] [address] [place] [id number] [address]- 2787 August, Chronic obstructive pulmonary disease, unspecified J44.9 [facility] [address] [place] [id number] [address]- 2211 Jul, Other dorsalgia M54.89 [facility] [address] [id number] [address]- 0461 Jul, Ins[address] G47.00 [facility] [address] [place] [id number] [place] [address] 70769- 9421 Jun, Other dorsalgia M54.89 [facility] [address] [place] [id number] [place] [address] 84127- 6886 Jun, Other dorsalgia M54.89 [facility] [address] [place] [id number] [place] [address] 71075- 3896 May, COPD (chronic obstructive pulmonary disease) J44.[address] [facility] [address] [place] [id number] [place] [address] 90462- 2049 May, Chronic obstructive pulmonary disease, unspecified J44.9 [facility] [address] [place] [id number] [place] [address] 47206- 4356 May, [facility] [address] 59421- 8770 May, Other dorsalgia M54.89 [facility] [address] [place] [id number] [place] [address] 38775- 2562 Apr, Chronic obstructive pulmonary disease, unspecified J44.9 [facility] [address] [place] [id number] [place] [address] 76101- 6563 Apr, [facility] [address] [id number] [place] [address] 27974- 6520 Mar, [facility] [address] [place] [id number] [place] [address] 43581- 7615 Mar, COPD (chronic obstructive pulmonary disease) J44.9 ; Back pain M54.[address] [facility] [address] [place] [id number] [place] [address] 21760- 4116 Mar, [facility] [address] [place] [id number] [place] [address] 60631- 7703 Mar, [facility] [address] [place] [id number] [place] [address] 30546- 3452 Feb, [facility] [address] [facility] [id number] [address]- 2765 Feb, [facility] [address] [facility] [id number], [place] [address]- 4526 Feb, [facility] [address] [id number], [place] [address]- 9773 Jan, [facility] [address] [facility] [id number], [place] [address]- [address] Jan, [facility] [address] [facility] [id number], [place] [address]- 8850 Jan, [facility] [address] [address]- 0948 Dec, Chronic airway obstruction, not elsewhere classified 496 ; Back pain 724.5 ; Flu vaccine need V04.81 and Prophylactic vaccination against streptococcus pneumoniae and influenza V06.6 [facility] [address] [facility] [id number], [place] [address]- 2131 Dec, [facility] [address] [address]- 5698 Dec, [facility] [address], [place] [address]- 8399 Dec, [facility] [address] [place] [id number], [place] [address]- 6163 Nov, [facility] [address] [facility] [id number], [place] [address]- 9087 Nov, [facility] [address] [facility] [id number], [place] [address]- 7906 Nov, [facility] [address] [facility] [id number], [place] [address]- 4099 Oct, [facility] [address] [id number], [place] [address]- 7339 Oct, [facility] [address] [facility] [id number] [place] [address]- 2822 Oct, Unspecified arthropathy, 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 and Chronic airway obstruction, not elsewhere classified 496 [facility] [address] [id number] [place] [address]- 0355 Oct, [facility] [address] [facility] [id number] [place] [address]- 0354 Sep, [facility] [address] [id number] [place] [address]- 9025 Sep, [facility] [address] [id number] [place] [address]- 4625 Sep, [facility] [address] [facility] [id number] [place] [address]- 9510 August, [facility] [address] [place] [id number] [place] [address]- 3071 August, [facility] [address] [place] [id number] [place] [address]- 5446 August, [facility] [address] [id number] [place] [address]- 5205 August, [facility] [address] [place] [id number] [place] [address]- 0862 August, [facility] [address] [place] [id number] [place] [address]- 3130 Jul, [facility] [address] [place] [id number] [place] [address]- 4516 Jul, [facility] [address] [id number] [place] [address]- 2905 Jun, [facility] [address] [facility] [id number] [place] 0833 Jun, [facility] [address] [place] [id number] [place] [address]- 2084 Jun, [facility] [place] [facility] [address] [facility] [id number] [place] [address]- 0144 Jun, [facility] [place] [facility] [address] [id number] [place] [address]- 2568 Jun, [facility] [place] [facility] [address] [id number] [place] [address]- 6151 Jun, [facility] [place] [facility] [address] [id number] [place] [address]- 8281 May, [facility] [place] [facility] [address] [id number] [place] [address]- 6633 May, [facility] [place] [facility] [address] [id number] [place] [address]- 5573 May, [facility] [place] [facility] [address] [id number] [place] [address]- 1028 May, [facility] [place] [facility] [address] [id number] [place] [address]- 9544 May, [facility] [place] [facility] [address] [id number] [place] [address]- 7801 Apr, [facility] [place] [facility] [address] [id number] [place] [address]- 5943 Apr, [facility] [place] [facility] [address] [id number] [place] [address]- 1348 Apr, [facility] [place] [facility] [address] [id number] [place] [address]- 9372 Apr, [facility] [place] [facility] [address] [id number] [place] [address]- 2990 Apr, [facility] [place] [facility] [address] [id number] [place] [address]- 9098 Apr, [facility] [place] [facility] [address] [id number] [place] [address]- 6711 Apr, [facility] [place] [facility] [address] [id number] [place] [address]- 3108 Mar, [facility] [place] [facility] [address] [id number] [place] [address]- 7817 Mar, [facility] [place] [facility] [address] [id number] [place] [address]- 7874 Mar, [facility] [place] [facility] [address] [id number] [place] [address]- 6916 Mar, [facility] [place] [facility] [address] [id number] [place] [address]- 6685 Mar, [facility] [place] [facility] [address] [id number] [place] 5687 Mar, [facility] [place] [facility] [address] [id number] [place] [address]- 5722 Mar, [facility] [place] [facility] [address] [id number] [place] [address]- 6479 Mar, [facility] [place] [facility] [address] [id number] [place] [address]- 8321 Mar, [facility] [place] [facility] [address] [id number] [place] [address]- 0242 Mar, [facility] [place] [facility] [address] [id number] [place] [address]- 5998 Feb, [facility] [place] [facility] [address] [id number] [place] [address]- 4379 Feb, [facility] [place] [facility] [address] [id number], [place] [address]- 9284 Jan, [facility] [place] [facility] [address] [id number] [place] [address]- 0360 Jan, [facility] [place] [facility] [address] [id number] [place] [address]- 5350 Jan, [facility] [place] [facility] [address] [id number] [place] [address]- 3735 Jan, [facility] [place] [facility] [address] [id number] [place] [address]- 4559 14 Jan, 2014 [facility] [place] [facility] [address] [id number] [place] [address]- 6683 14 Jan, 2014 [facility] [place] [facility] [address] [id number] [place] [address]- 1751 Jan, [facility] [place] [facility] [address] [id number] [place] [address]- 9245 Jan, [facility] [place] [facility] [address] [id number] [place] [address]- 3583 Jan, [facility] [place] [facility] [address] [id number] [place] [address]- 1166 Jan, [facility] [place] [facility] [address] [id number] [place] [address]- 1233 Jan, [facility] [place] [facility] [address] [id number] [place] [address]- 5628 Jan, [facility] [place] [facility] [address] [id number] [place] [address]- 6245 Dec, [facility] [place] [facility] [address] [id number] [place] [address]- 9594 Dec, [facility] [place] [facility] [address] [id number] [place] [address]- 5864 Dec, [facility] [place] [facility] [address] [id number] [place] [address]- 0478 Dec, [facility] [place] [facility] [address] [id number] [place] [address]- 4951 Dec, [facility] [place] [facility] [address] [id number] [place] [address]- 7616 Nov, [facility] [place] [facility] [address] [id number] [place] [address]- 2507 Nov, [facility] [place] [facility] [address] [id number] [place] [address]- 9756 Nov, [facility] [place] [facility] [address] [id number] [place] [address]- 5941 Nov, [facility] [place] [facility] [address] [id number] [place] [address]- 6012 Oct, [facility] [place] [facility] [address] [id number] [place] [address]- 3288 Oct, [facility] [place] [facility] [address] [id number] [place] [address]- 6074 Oct, [facility] [place] [facility] [address] [id number] [place] [address]- 3502 Oct, [facility] [place] [facility] [address] [id number] [place] [address]- 1045 Oct, [facility] [place] [facility] [address] [id number] [place] [address]- 6837 Oct, [facility] [place] [facility] [address] [id number] [place] [address]- 2608 Oct, [facility] [place] [facility] [address] [id number] [place] [address]- 0853 Oct, [facility] [place] [facility] [address] [id number] [place] [address]- 6817 Oct, [facility] [place] [facility] [address] [id number] [place] [address]- 7369 Oct, [facility] [place] [facility] [address] [id number] [place] [address]- 9976 Sep, [facility] [place] [facility] [address] [id number] [place] [address]- 7997 Sep, [facility] [place] [facility] [address] [id number] [place] [address]- 9376 Sep, [facility] [place] [facility] [address] [id number] [place] [address]- 7521 Sep, [facility] [place] [facility] [address] [id number] [place] [address]- 3507 Sep, [facility] [place] [facility] [address] [id number] [place] [address]- 3423 Sep, [facility] [place] [facility] [address] [id number] [place] [address]- 0831 August, [facility] [place] [facility] [address] [id number] [place] [address]- 7226 August, [facility] [place] [facility] [address] [id number] [place] [address]- 8387 August, [facility] [place] [facility] [address] [id number] [place] [address]- 0890 August, [facility] [place] [facility] [address] [id number] [place] [address]- 5196 August, [facility] [place] [facility] [address] [id number] [place] [address] August, [facility] [place] [facility] [address] [id number] [place] [address] Jul, [facility] [place] [facility] [address] [id number] [place] [address] Jul, [facility] [place] [facility] [address] [id number] [place] [address] Jul, [facility] [place] [facility] [address] [id number] [place] [address] Jul, [facility] [place] [facility] [address] [id number] [place] [address] Jul, [facility] [place] [facility] [address] [id number] [place] [address] Jul, [facility] [place] [facility] [address] [id number] [place] [address] Jul, [facility] [place] [facility] [address] [id number] [place] [address] Jul, [facility] [place] [facility] [address] [id number] [place] [address] Jul, [facility] [place] [facility] [address] [id number] [place] [address] Jun, [facility] [place] [facility] [address] [id number] [place] [address] Jun, [facility] [place] [facility] [address] [id number] [place] [address] Jun, [facility] [place] [facility] [address] [id number] [place] [address] May, [facility] [place] [facility] [address] [id number] [place] [address] May, [facility] [place] [facility] [address] [id number] [place] [address] May, [facility] [place] [facility] [address] [id number] [place] [address] May, [facility] [place] [facility] [address] [id number] [place] [address] May, [facility] [place] [facility] [address] [id number] [place] [address] May, [facility] [place] [facility] [address] [id number] [place] [address] Apr, [facility] [place] [facility] [address] [id number] [place] [address] Apr, [facility] [place] [facility] [address] [id number] [place] [address] Apr, [facility] [place] [facility] [address] [id number] [place] [address]- [address] Apr, [facility] [place] [facility] [address] [id number] [place] [address] Apr, [facility] [place] [facility] [address] [id number] [place] [address] Apr, [facility] [address] [id number] [place] [address] Apr, [facility] [place] [facility] [address] [id number] [place] [address]- [address] Apr, [facility] [place] [facility] [address] [id number] [place] [address] Apr, [facility] [place] [facility] [address] [id number] [place] [address] Apr, [facility] [place] [facility] [address] [id number] [place] [address] Mar, [facility] [place] [facility] [address] [id number] [place] [address] Mar, [facility] [place] [facility] [address] [id number] [place] [address] Mar, [facility] [place] [facility] [address] [id number] [place] [address] Mar, [facility] [place] [facility] [address] [id number] [place] [address] Mar, [facility] [place] [facility] [address] [id number] [place] [address] Mar, [facility] [place] [facility] [address] [id number] [place] [address] Mar, [facility] [place] [facility] [address] [id number] [place] [address] Mar, [facility] [place] [facility] [address] [id number] [place] [address] Mar, [facility] [place] [facility] [address] [id number] [place] [address] Mar, [facility] [place] [facility] [address] [id number] [place] [address] Mar, [facility] [place] [facility] [address] [id number] [place] [address] Feb, [facility] [address] [id number] [place] [address] Feb, [facility] [place] [facility] [address] [id number] [place] [address] Feb, [facility] [place] [facility] [address] [id number] [place] [address] Feb, [facility] [place] [facility] [address] [id number] [place] [address] Feb, [facility] [address] [id number] [place] [address] Feb, [facility] [place] [facility] [address] [id number] [place] [address] Feb, [facility] [place] [facility] [address] [id number] [place] [address] Feb, [facility] [address] [id number] [place] [address] Feb, [facility] [place] [facility] [address] [id number] [place] [address]- [address] Feb, [facility] [address] [id number] [place] [address] Feb, [facility] [place] [facility] [address] [id number] [place] [address] Feb, [facility] [place] [facility] [address] [id number] [place] [address] Jan, [facility] [place] [facility] [address] [id number] [place] [address] 134[address] Jan, [facility] [place] [facility] [address] [id number] [place] [address] 4[address] Jan, [facility] [place] [facility] [address] [id number] [place] [address] 2[address] Jan, [facility] [place] [facility] [address] [id number] [place] [address] 18 Jan, 2013 [facility] [place] [facility] [address] [id number] [place] [address] 4767 18 Jan, 2013 [facility] [place] [facility] [address] [id number] [place] [address]- 1610 15 Jan, 2013 [facility] [place] [facility] [address] [id number] [place] [address]- 4[address] 15 Jan, 2013 [facility] [place] [facility] [address] [id number] [place] [address]- 4526 03 Jan, 2013 [facility] [place] [facility] [address] [id number] [place] [address] 4917 27 Dec, 2012 [facility] [place] [facility] [address] [id number] [place] [address]- 8271 18 Dec, 2012 [facility] [place] [facility] [address] [id number] [place] [address]- 1595 17 Dec, 2012 [facility] [place] [facility] [address] [id number] [place] [address]- 1763 11 Dec, 2012 [facility] [place] [facility] [address] [id number], [place] [address] 05 Dec, 2012 [facility] [place] [facility] [address] [id number], [place] [address] Nov, [facility] [place] [facility] [address] [id number], [place] [address] 275[address] Nov, [facility] [place] [facility] [address] [id number] [place] [address]- 7367 Oct, [facility] [place] [facility] [address] [id number], [place] [address] 7436 Oct, [facility] [place] [facility] [address] [id number], [place] [address] Oct, [facility] [place] [facility] [address] [id number], [place] [address]- 269[address] Oct, [facility] [address] [id number] [place] [address]- 3204 Oct, [facility] [place] [facility] [address] [id number] [place] [address]- 7049 Oct, [facility] [address] [id number] [place] [address]- 6571 Sep, [facility] [place] [facility] [address] [id number] [place] [address]- 3397 Sep, [facility] [address] [id number] [place] [address]- 5355 Sep, [facility] [address] [id number] [place] [address]- 8851 Sep, [facility] [address] [id number] [place] [address]- 2787 Sep, [facility] [address] [id number] [place] [address]- 7876 Sep, [facility] [address] [id number] [place] [address]- 5953 Sep, [facility] [address] [id number] [place] [address] 3934 August, [facility] [address] [id number] [place] [address]- 1838 August, [facility] [place] [facility] [address] [id number] [place] [address]- 2770 August, [facility] [place] [facility] [address] [id number] [place] [address]- 8896 August, [facility] [place] [facility] [address] [id number] [place] [address]- 8891 August, [facility] [place] [facility] [address] [id number] [place] [address]- 9445 August, [facility] [place] [facility] [address] [id number] [place] [address]- 5474 26 Jul, 2012 [facility] [place] [facility] [address] [id number] [place] [address]- 0259 23 Jul, 2012 [facility] [place] [facility] [address] [id number] [place] [address]- 6336 17 Jul, 2012 [facility] [place] [facility] [address] [id number] [place] [address]- 6618 10 Jul, 2012 [facility] [place] [facility] [address] [id number] [place] [address]- 0498 Jul, [facility] [place] [facility] [address] [id number] [place] [address]- 3040 Jul, [facility] [place] [facility] [address] [id number] [place] [address]- 8841 Jun, [facility] [place] [facility] [address] [id number] [place] [address]- 3812 Jun, [facility] [place] [facility] [address] [id number] [place] [address]- 0698 Jun, [facility] [place] [facility] [address] [id number] [place] [address]- 6326 Jun, [facility] [place] [facility] [address] [id number] [place] [address]- 7917 Jun, [facility] [place] [facility] [address] [id number] [place] [address]- 8899 Jun, [facility] [place] [facility] [address] [id number] [place] [address]- 1460 May, [facility] [place] [facility] [address] [id number] [place] [address]- 9754 May, [facility] [place] [facility] [address] [id number] [place] [address]- 6162 May, [facility] [place] [facility] [address] [id number] [place] [address]- 9136 May, [facility] [address] [id number] [place] [address]- 0168 Apr, [facility] [address] [id number] [place] [address]- 3254 Apr, [facility] [address] [id number] [place] [address]- 6530 Apr, [facility] [address] [id number] [place] [address]- 3646 Apr, [facility] [address] [id number] [place] [address]- 2607 Apr, [facility] [address] [id number] [place] [address]- 9540 Apr, [facility] [address] [id number] [place] [address]- 2679 Apr, [facility] [address] [id number] [place] [address]- 1294 Apr, [facility] [address] [id number] [place] [address]- 1393 Apr, [facility] [address] [id number] [place] [address] 3964 Mar, [facility] [address] [id number] [place] [address]- 6978 Mar, [facility] [place] [facility] [address] [id number] [place] [address]- 1084 Mar, [facility] [place] [facility] [address] [id number] [place] [address] 0625 Mar, [facility] [place] [facility] [address] [id number] [place] [address] Mar, [facility] [place] [facility] [address] [id number] [place] Mar, [facility] [address] [id number] [place] [address]- 2951 05 Mar, 2012 [facility] [place] [facility] [address] [id number] [place] [address]- 2803 Mar, [facility] [place] [facility] [address] [id number] [place] [address]- 5667 Mar, [facility] [place] [facility] [address] [id number] [place] [address]- 6199 Mar, [facility] [place] [facility] [address] [id number] [place] [address]- 8224 Feb, [facility] [place] [facility] [address] [id number] [place] [address], [place] [address]- 9986 Feb, [facility] [place] [facility] [address] [id number] [place] [address]- 8930 Feb, [facility] [place] [facility] [address] [id number] [place] [address]- 7740 Feb, [facility] [place] [facility] [address] [id number] [place] [address]- 0977 Feb, [facility] [place] [facility] [address] [facility] [id number] [place] [address]- 2856 15 Feb, 2012 [facility] [place] [facility] [address] [facility] [id number] [place] [address]- 8327 14 Feb, 2012 [facility] [place] [facility] [address] [id number] [place] [address]- 8244 Jan, [facility] [place] [facility] [address] [id number] [place] [address]- 6648 Jan, [facility] [place] [facility] [address] [id number] [place] [address]- 3350 Jan, [facility] [place] [facility] [address] [facility] [id number] [place] [address]- 5608 Jan, [facility] [place] [facility] [address] [id number] [place] [address]- 0758 Jan, [facility] [place] [facility] [address] [id number] [place] [address]- 5388 29 Jan, 2012 [facility] [place] [facility] [address] [id number] [place] [address]- 5211 Jan, [facility] [place] [facility] [address] [id number] [place] [address]- 5041 Jan, [facility] [place] [facility] [address] [id number] [place] [address]- 4455 Jan, [facility] [place] [facility] [address] [id number] [place] [address]- 1803 Jan, [facility] [place] [facility] [address] [id number] [place] [address]- 6432 27 Dec, 2011 [facility] [place] [facility] [address] [id number] [place] [address]- 6010 20 Dec, 2011 [facility] [place] [facility] [address] [id number] [place] [address]- 2590 17 Dec, 2011 [facility] [place] [facility] [address] [id number] [place] [address]- 2796 06 Dec, 2011 [facility] [place] [facility] [address] [id number] [place] [address]- 8041 05 Dec, 2011 [facility] [place] [facility] [address] [id number], [place] [address]- 9281 Dec, [facility] [place] [facility] [address] [id number], [place] [address]- 5183 Nov, [facility] [place] [facility] [address] [id number] [place] [address]- 8297 Nov, [facility] [place] [facility] [address] [id number] [place] [address]- 9283 Nov, [facility] [place] [facility] [address] [id number] [address]66 Nov, [facility] [place] [facility] [address] [id number], [place] [address]- 7693 Oct, [facility] [place] [facility] [address] [id number] [place] [address]- 2605 Oct, [facility] [place] [facility] [address] [id number] [place] [address]- 5950 Oct, [facility] [place] [facility] [address] [id number] [place] [address]- 3626 Oct, [facility] [place] [facility] [address] [id number] [place] [address]- 6231 Oct, [facility] [place] [facility] [address] [id number] [place] [address]- 3467 Oct, [facility] [place] [facility] [address] [id number] [place] [address]- 1316 Oct, [facility] [place] [facility] [address] [id number] [place] [address]- 8744 Oct, [facility] [place] [facility] [address] [id number] [place] [address]- 2178 Sep, [facility] [place] [facility] [address] [id number] [place] [address]- 6344 Sep, [facility] [place] [facility] [address] [id number] [place] [address]- 9866 Sep, [facility] [place] [facility] [address] [id number] [place] [address]- 7939 Sep, [facility] [place] [facility] [address] [id number] [place] [address]- 4869 August, [facility] [place] [facility] [address] [id number] [place] [address]- 0820 August, [facility] [place] [facility] [address] [id number] [place] [address]- 6608 Jul, [facility] [place] [facility] [address] [id number] [place] [address]- 2137 Jun, [facility] [place] [facility] [address] [id number], [place] [address]- 2496 [address], [address] [facility] [address] [id number], [place] [address]- 2896 Jun, [facility] [id number], [place] [address] 2357 Jun, [facility] [id number], [place] [address] 3850 Jun, [facility] [id number] [address] 9130 Jun, [facility] [id number] [address] 5312 Jun, [facility] [id number] [address]95 Jun, [facility] [id number] [address] 5722 May, [facility] [address] [id number], [place] [address] May, [facility] [address] [id number] [address] Mar, IMMUNIZATIONS No Known Immunizations SOCIAL HISTORY Never Assessed REASON FOR VISIT Refill request PLAN OF CARE VITAL SIGNS MEDICATIONS Unknown [...] pneumonia 2012 Hospitalization History COPD exacerbation, acute bronchitis-[facility] 06/10/16
--- OUTSIDE RECORDS SUMMARY | 2018-06-11 16:22 | XMS REPORT ---
Author Author SARA CONROY [facility] Address [address] [place] [address] Care Team Providers Care Net Repairer Name Role Phone SARA CORNOY Unavailable PROBLEMS Type Condition ICD9-CM Code YZO26-DC Code Onset Dates Condition Status SNOMED Code Problem Chronic pain syndrome G89.4 Active 854615825 Problem Low serum testosterone E29.1 Active 768978107 Problem Back pain M54.9 Active 840347036 Problem Essential hypertension I10 Active 64634427 Problem Chronic obstructive pulmonary disease, unspecified J44.9 Active 95606420 ALLERGIES No Information ENCOUNTERS Encounter Location Date Diagnosis [place] [id number] [place] [address] 46991- 0953 August, Back pain M54.9 [place] [id number] [place] [address] 92115- 4043 Jul, Back pain M54.9 [place] [id number] [place] [address] 25130- 5393 Jul, Medicare annual wellness visit, initial Z00.00 ; Chronic obstructive pulmonary disease, unspecified J44.9 ; Back pain M54.9 ; Chronic pain syndrome G89.4 ; Essential hypertension I10 ; Low serum testosterone E29.1 ; Smoking history Z87.891 and Encounter for immunization Z23 [place] [id number] [place] [address] 32674- 0988 Jul, [place] [id number] [place] [address] 63291- 1497 Jun, Back pain M54.9 [place] [id number] [place] [address] 10632- 2502 May, Back pain M54.9 [place] [id number] [place] [address] 15949- 0860 13 May, 2017 Exposure to the flu Z20.828 [facility] [id number] [place] [address] 01729- 0157 May, Chronic pain syndrome G89.4 ; Back pain M54.9 and Chronic obstructive pulmonary disease, unspecified J44.9 [facility] [address] 38005- 1062 May, Back pain M54.9 [facility] [address] 36210- 0541 Apr, Back pain M54.9 [facility] [address] 70779- 1906 Mar, Back pain M54.9 [facility] [address] 62516- 9974 Feb, Back pain M54.9 [facility] [id number] [place] [address] 61153- 9202 Jan, Back pain M54.9 [facility] [id number] [place] [address] 37008- 1552 Dec, Chronic obstructive pulmonary disease, unspecified J44.9 and Back pain M54.9 [facility] [id number] [place] [address] 28507- 5613 Dec, Back pain M54.9 [facility] [id number] [place] [address] 90796- 3759 Nov, Back pain M54.9 [facility] [address] 58422- 5654 Oct, Essential hypertension I10 [facility] [id number] [place] [address] 20510- 5395 Oct, Back pain M54.9 [facility] [address] [place] [address]- 9218 Oct, [facility] [id number] [place] [address] 92136- 9130 Oct, [facility] [id number] [place] [address] 33229- 4262 Sep, Back pain M54.9 [facility] [id number] [place] [address] 81349- 9106 August, [facility] [id number] [place] [address] 09109- 9036 August, Essential hypertension I10 [facility] [id number] [place] [address] 25091- 4154 August, Other dorsalgia M54.89 [facility] [id number] [place] [address] 10268- 8244 August, Back pain M54.9 ; Chronic obstructive pulmonary disease, unspecified J44.9 and Low serum testosterone E29.1 [facility] [id number] [place] [address] 92465- 1542 Jul, Other dorsalgia M54.89 [facility] [id number] [place] [address] 73532- 4500 Jun, Dorsalgia, unspecified M54.9 [facility] [id number] [place] [address] 38605- 4699 Jun, Dorsalgia, unspecified M54.9 [facility] [id number] [place] [address] 23136- 9505 Jun, [facility] [id number] [place] [address] 02019- 4121 Jun, Chronic obstructive pulmonary disease, unspecified J44.9 [facility] [id number] [address]- 1080 Jun, Back pain M54.9 [facility] [id number] [place] [address] 18651- 3908 May, Chronic obstructive pulmonary disease, unspecified J44.9 [facility] [address] 13837- 9606 May, [facility] [id number] [place] [address] 48370- 4991 May, Other dorsalgia M54.89 [facility] [address] 89550- 2568 Apr, [facility] [id number] [place] [address] 01339- 4808 Apr, Other dorsalgia M54.89 [facility] [id number] [place] [address] 80388- 5463 Mar, Chronic obstructive pulmonary disease, unspecified J44.9 ; Essential hypertension I10 and Back pain M54.9 [facility] [id number] [place] [address] 28278- 5084 Mar, [facility] [id number] [place] [address] 08128- 4551 Mar, Dorsalgia, unspecified M54.9 [facility] [id number] [place] [address] 98813- 7848 Mar, Edema R60.9 [facility] [id number] [place] [address] 87518- 1383 Feb, [facility] [id number] [place] [address] 08451- 1470 Feb, Other dorsalgia M54.89 [facility] [id number] [place] [address] 53974- 0941 Jan, Encounter for immunization Z23 and Chronic obstructive pulmonary disease, unspecified J44.9 [facility] [id number] [place] [address] 49011- 7977 Jan, [facility] [id number] [address]- 9470 14 Dec, 2015 [facility] [id number] [place] [address] 53657- 8596 13 Dec, 2015 [facility] [id number] [place] [address] 34500- 3279 13 Dec, 2015 Essential hypertension I10 and Back pain M54.9 [facility] [id number] [place] [address] 13496- 2719 17 Nov, 2015 [facility] [id number] [place] [address] 21886- 9259 Nov, [facility] [id number] [place] [address] 40707- 4473 Oct, Other dorsalgia M54.89 [facility] [id number] [place] [address] 05710- 2000 Oct, [facility] [id number] [place] [address] 36446- 8123 Sep, [facility] [id number] [place] [address] 48914- 9328 Sep, [facility] [id number] [place] [address] 96567- 4287 Sep, [facility] [id number] [place] [address] 65618- 4710 August, [facility] [id number] [place] [address] 96040- 8142 August, Other dorsalgia M54.89 [facility] [id number] [place] [address] 03720- 1884 August, [facility] [id number] [place] [address] 66490- 2203 August, Chronic obstructive pulmonary disease, unspecified J44.9 and Back pain M54.9 [facility] [id number] [place] [address] 99705- 7926 August, [facility] [id number] [place] [address] 18310- 9709 August, [facility] [id number] [place] [address] 19675- 5490 August, Chronic obstructive pulmonary disease, unspecified J44.9 [facility] [id number] [place] [address] 54592- 6788 Jul, Other dorsalgia M54.89 [facility] [id number] [place] [address] 70535- 6065 Jul, Insomnia G47.00 [facility] [id number] [place] [address] 36337- 8566 Jun, Other dorsalgia M54.89 [facility] [id number] [place] [address] 07289- 5624 Jun, Other dorsalgia M54.89 [facility] [id number] [place] [address] 45228- 6536 May, COPD (chronic obstructive pulmonary disease) J44.9 and Bronchitis J40 [facility] [id number] [place] [address] 36579- 5881 May, Chronic obstructive pulmonary disease, unspecified J44.9 [facility] [id number] [place] [address] 43686- 6137 May, [facility] [id number] [place] [address] 85608- 2549 May, Other dorsalgia M54.89 [facility] [id number] [place] [address] 04153- 9283 Apr, Chronic obstructive pulmonary disease, unspecified J44.9 [facility] [id number] [place] [address] 21787- 0661 Apr, [facility] [id number] [address]- 0098 14 Mar, 2015 [facility] [address] [address]- 7129 14 Mar, 2015 COPD (chronic obstructive pulmonary disease) J44.9 ; Back pain M54.9 and Edema R60.9 [facility] [id number] [address]- 5977 11 Mar, 2015 [facility] [id number] [place] [address] 64725- 3730 Mar, [facility] [id number] [place] [address] 87395- 8419 Feb, [facility] [id number] [place] [address] 88344- 7231 Feb, [facility] [id number] [place] [address] 96364- 3059 Feb, [facility] [id number] [place] [address] 25386- 1215 Jan, [facility] [id number] [place] [address] 74838- 3642 Jan, [facility] [id number] [place] [address] 73755- 5870 Jan, [facility] [id number] [address]- 9024 24 Dec, 2014 Chronic airway obstruction, not elsewhere classified 496 ; Back pain 724.5 ; Flu vaccine need V04.81 and Prophylactic vaccination against streptococcus pneumoniae and influenza V06.6 [facility] [address] [address]- 6500 Dec, [facility] [id number] [place] [address] 45617- 5246 Dec, [facility] [id number] [address]- 7935 Dec, [facility] [id number] [place] [address]- 6482 Nov, [facility] [id number] [place] [address]- 3966 Nov, [facility] [id number] [place] [address]- 6158 Nov, [facility] [id number] [place] [address]- 6424 Oct, [facility] [id number] [place] [address]- 7353 Oct, [facility] [id number] [place] [address]- 3668 Oct, Unspecified arthropathy, 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 and Chronic airway obstruction, not elsewhere classified 496 [facility] [id number] [place] [address]- 5075 Oct, [facility] [id number] [address]- 1743 Sep, [facility] [id number] [address]- 6198 Sep, [facility] [id number] [address]- 2644 Sep, [facility] [id number] [address]- 6305 August, [facility] [id number] [address]- 9855 August, [facility] [id number] [place] [address]- 7264 August, [facility] [id number] [place] [address]- 8816 August, [facility] [id number] [place] [address]- 2367 August, [facility] [place] [facility] [address] [id number] [place] [address]- 8597 14 Jul, 2014 [facility] [place] [facility] [address] [id number] [place] [address]- 9742 13 Jul, 2014 [facility] [place] [facility] [address] [id number] [place] [address]- 0857 Jun, [facility] [place] [facility] [address] [id number] [place] [address]- 1655 Jun, [facility] [place] [facility] [address] [id number] [place] [address]- 4087 Jun, [facility] [place] [facility] [address] [id number] [place] [address]- 3849 Jun, [facility] [place] [facility] [address] [facility] [id number] [place] [address]- 3805 Jun, [facility] [place] [facility] [address] [id number] [place] [address]- 8013 Jun, [facility] [place] [facility] [address] [id number] [place] [address]- 6499 May, [facility] [place] [facility] [address] [id number] [place] [address]- 0456 May, [facility] [place] [facility] [address] [facility] [id number] [place] [address]- 5575 May, [facility] [place] [facility] [address] [id number] [place] [address]- 9748 May, [facility] [place] [facility] [address] [id number] [place] [address]- 8264 May, [facility] [place] [facility] [address] [id number] [place] [address]- 9340 Apr, [facility] [place] [facility] [address] [id number] [place] [address]- 1956 Apr, [facility] [place] [facility] [address] [id number] [place] [address]- 5709 Apr, [facility] [place] [facility] [address] [id number] [place] [address]- 2472 Apr, [facility] [place] [facility] [address] [id number] [place] [address]- 5301 Apr, [facility] [place] [facility] [address] [id number] [place] [address]- 3465 Apr, [facility] [place] [facility] [address] [id number] [place] [address]- 1615 Apr, [facility] [place] [facility] [address] [id number] [place] [address]- 0170 Mar, [facility] [place] [facility] [address] [id number] [place] [address]- 4864 Mar, [facility] [place] [facility] [address] [id number] [place] [address]- 7056 Mar, [facility] [place] [facility] [address] [id number] [place] [address]- 1666 Mar, [facility] [place] [facility] [address] [id number] [place] [address]- 6268 Mar, [facility] [place] [facility] [address] [id number] [place] [address]- 4627 Mar, [facility] [place] [facility] [address] [id number] [place] [address]- 2910 Mar, [facility] [place] [facility] [address] [id number] [place] [address]- 8707 Mar, [facility] [place] [facility] [address] [id number] [place] 0839 Mar, [facility] [place] [facility] [address] [id number] [place] 5581 Mar, [facility] [place] [facility] [address] [id number] [place] 7224 Feb, [facility] [place] [facility] [address] [id number] [place] [address]- 8312 17 Feb, 2014 [facility] [place] [facility] [address] [id number] [place] [address]- 0705 20 Jan, 2014 [facility] [place] [facility] [address] [id number] [place] [address]- 0085 20 Jan, 2014 [facility] [place] [facility] [address] [id number] [place] [address]- 2930 14 Jan, 2014 [facility] [place] [facility] [address] [id number] [place] [address]- 0711 14 Jan, 2014 [facility] [place] [facility] [address] [id number] [place] [address]- 0670 14 Jan, 2014 [facility] [place] [facility] [address] [id number] [place] [address]- 6607 14 Jan, 2014 [facility] [place] [facility] [address] [id number] [place] [address]- 6382 Jan, [facility] [place] [facility] [address] [id number] [place] [address]- 8422 Jan, [facility] [place] [facility] [address] [id number] [place] [address]- 4811 Jan, [facility] [place] [facility] [address] [id number] [place] [address]- 4871 Jan, [facility] [place] [facility] [address] [id number] [place] [address]- 5500 Jan, [facility] [place] [facility] [address] [id number] [place] [address]- 3375 Jan, [facility] [place] [facility] [address] [id number] [place] 2411 Dec, [facility] [place] [facility] [address] [id number] [place] [address]- 8531 Dec, [facility] [place] [facility] [address] [id number] [place] [address]- 2731 Dec, [facility] [place] [facility] [address] [id number] [place] [address]- 6075 Dec, [facility] [place] [facility] [address] [id number] [place] [address]- 3669 Dec, [facility] [place] [facility] [address] [id number] [place] [address]- 9123 Nov, [facility] [place] [facility] [address] [id number] [place] [address]- 9015 Nov, [facility] [place] [facility] [address] [id number] [place] [address]- 6915 Nov, [facility] [place] [facility] [address] [id number] [place] [address]- 8420 Nov, [facility] [place] [facility] [address] [id number] [place] [address]- 7118 Oct, [facility] [place] [facility] [address] [id number] [place] [address]- 4242 Oct, [facility] [place] [facility] [address] [id number] [place] [address]- 4018 Oct, [facility] [place] [facility] [address] [id number] [place] [address]- 8038 Oct, [facility] [place] [facility] [address] [id number] [place] [address]- 5607 Oct, [facility] [place] [facility] [address] [id number] [place] [address]- 4585 Oct, [facility] [place] [facility] [address] [id number] [place] [address]- 2969 Oct, [facility] [place] [facility] [address] [id number] [place] [address] Oct, [facility] [place] [facility] [address] [id number] [place] [address] Oct, [facility] [place] [facility] [address] [id number] [place] [address] Oct, [facility] [place] [facility] [address] [id number] [place] [address] Sep, [facility] [place] [facility] [address] [id number] [place] [address] Sep, [facility] [place] [facility] [address] [id number] [place] [address] Sep, [facility] [place] [facility] [address] [id number] [place] [address] Sep, [facility] [place] [facility] [address] [id number] [place] [address] Sep, [facility] [place] [facility] [address] [id number] [place] [address] Sep, [facility] [place] [facility] [address] [id number] [place] [address] August, [facility] [place] [facility] [address] [id number] [place] [address] August, [facility] [place] [facility] [address] [id number] [place] [address] August, [facility] [place] [facility] [address] [id number] [place] [address] August, [facility] [place] [facility] [address] [id number] [place] [address] August, [facility] [place] [facility] [address] [id number] [place] [address] August, [facility] [place] [facility] [address] [id number] [place] [address] Jul, [facility] [place] [facility] [address] [id number] [place] [address]- [address] Jul, [facility] [place] [facility] [address] [id number] [place] [address] Jul, [facility] [place] [facility] [address] [id number] [place] [address]- [address] Jul, [facility] [place] [facility] [address] [id number] [place] [address] Jul, [facility] [place] [facility] [address] [id number] [place] [address]- [address] Jul, [facility] [place] [facility] [address] [id number] [place] [address]- [address] Jul, [facility] [place] [facility] [address] [id number] [place] [address] Jul, [facility] [place] [facility] [address] [id number] [place] [address] Jul, [facility] [place] [facility] [address] [facility] [id number] [place] [address] Jun, [facility] [place] [facility] [address] [id number] [place] [address]- [address] Jun, [facility] [place] [facility] [address] [id number] [place] [address] Jun, [facility] [place] [facility] [address] [id number] [place] [address] May, [facility] [place] [facility] [address] [facility] [id number] [place] [address]- [address] May, [facility] [place] [facility] [address] [facility] [id number] [place] [address]- [address] May, [facility] [place] [facility] [address] [id number] [place] [address] May, [facility] [place] [facility] [address] [id number] [place] [address]- [address] May, [facility] [place] [facility] [address] [id number] [place] [address]- [address] May, [facility] [place] [facility] [address] [facility] [id number] [place] [address]- [address] Apr, [facility] [address] [id number] [place] [address]- [address] Apr, [facility] [place] [facility] [address] [id number] [place] [address]- [address] Apr, [facility] [place] [facility] [address] [id number] [place] [address]- [address] Apr, [facility] [place] [facility] [address] [id number] [place] [address]- [address] Apr, [facility] [place] [facility] [address] [id number] [place] [address]- [address] Apr, [facility] [place] [facility] [address] [id number] [place] [address]- [address] Apr, [facility] [address] [id number] [place] [address]- [address] Apr, [facility] [place] [facility] [address] [id number] [place] [address]- [address] Apr, [facility] [address] [id number] [place] [address]- [address] Apr, [facility] [place] [facility] [address] [id number] [place] [address]- [address] Mar, [facility] [place] [facility] [address] [id number] [place] [address]- [address] Mar, [facility] [place] [facility] [address] [id number] [place] [address]- [address] Mar, [facility] [place] [facility] [address] [id number] [place] [address] Mar, [facility] [place] [facility] [address] [id number] [place] [address] Mar, [facility] [place] [facility] [address] [id number] [place] [address] Mar, [facility] [place] [facility] [address] [id number] [place] [address] Mar, [facility] [address] [id number] [place] [address] 9[address] Mar, [facility] [place] [facility] [address] [id number] [place] [address] 10[address] Mar, [facility] [address] [id number] [place] [address] 1135 Mar, [facility] [place] [facility] [address] [id number] [place] [address] Mar, [facility] [address] [id number] [place] [address] Feb, [facility] [place] [facility] [address] [id number] [place] [address] Feb, [facility] [place] [facility] [address] [id number] [place] [address] Feb, [facility] [address] [id number] [place] [address] Feb, [facility] [place] [facility] [address] [id number] [place] [address] Feb, [facility] [address] [id number] [place] [address]- 5[address] Feb, [facility] [place] [facility] [address] [id number] [place] [address]- 6243 Feb, [facility] [place] [facility] [address] [id number] [place] [address]- 4431 Feb, [facility] [place] [facility] [address] [id number] [place] [address] Feb, [facility] [place] [facility] [address] [id number] [place] [address]- 0766 Feb, [facility] [place] [facility] [address] [id number] [place] [address]- 3867 Feb, [facility] [place] [facility] [address] [id number] [place] [address]- 1874 Feb, [facility] [place] [facility] [address] [id number] [place] [address]- 1546 Jan, [facility] [place] [facility] [address] [id number] [place] [address]- 8407 Jan, [facility] [place] [facility] [address] [id number] [place] [address]- 5488 Jan, [facility] [place] [facility] [address] [id number] [place] [address]- 3512 Jan, [facility] [place] [facility] [address] [id number] [place] [address]- 6248 Jan, [facility] [place] [facility] [address] [id number] [place] [address]- 5820 Jan, [facility] [place] [facility] [address] [id number], [place] [address] 24[address] Jan, [facility] [place] [facility] [address] [id number] [place] [address]- 3[address] Jan, [facility] [place] [facility] [address] [id number], [place] [address] Jan, [facility] [place] [facility] [address] [id number], [place] [address]65 27 Dec, 2012 [facility] [place] [facility] [address] [id number], [place] [address] 49[address] 18 Sep2012 [facility] [place] [facility] [address] [id number] [place] [address]- 9507 17 Sep2012 [facility] [place] [facility] [address] [id number], [place] [address]- 6627 11 Sep2012 [facility] [place] [facility] [address] [id number] [place] [address] 05 Sep, 2012 [facility] [place] [facility] [address] [id number] [place] [address]- 9065 Nov, [facility] [place] [facility] [address] [id number] [place] [address]- 8319 Nov, [facility] [place] [facility] [address] [id number] [place] [address]- 7394 Oct, [facility] [place] [facility] [address] [id number] [place] [address]- 8234 Oct, [facility] [place] [facility] [address] [id number] [place] [address]- 4507 Oct, [facility] [place] [facility] [address] [id number] [place] [address]- 0424 Oct, [facility] [place] [facility] [address] [id number] [place] [address]- 6291 Oct, [facility] [place] [facility] [address] [id number] [place] [address]- 0445 Oct, [facility] [place] [facility] [address] [id number] [place] [address]- 7618 Sep, [facility] [place] [facility] [address] [id number] [place] [address]- 5171 24 Sep, 2012 [facility] [place] [facility] [address] [id number] [place] [address]- 489[address] Sep, [facility] [place] [facility] [address] [id number] [place] [address]- 2853 Sep, [facility] [place] [facility] [address] [id number] [place] [address]- 9718 14 Sep, 2012 [facility] [place] [facility] [address] [id number] [place] [address]- 0295 Sep, [facility] [place] [facility] [address] [id number] [place] [address]- 3652 Sep, [facility] [place] [facility] [address] [id number] [place] [address]- 5983 August, [facility] [place] [facility] [address] [id number] [place] [address]- 0037 August, [facility] [address] [id number] [place] [address] August, [facility] [address] [id number] [place] [address]- 3959 August, [facility] [address] [id number] [place] [address]- 5766 August, [facility] [address] [id number] [place] [address]275 August, [facility] [address] [id number] [place] [address]- 4924 Jul, [facility] [address] [id number] [place] [address]- 9750 Jul, [facility] [address] [id number] [place] [address]- 4379 Jul, [facility] [address] [id number] [place] [address]- 7747 Jul, [facility] [address] [id number] [place] [address]- 9715 Jul, [facility] [address] [id number] [place] [address]- 9894 Jul, [facility] [address] [id number] [place] [address]- 1530 28 Jun, 2012 [facility] [address] [id number] [place] [address]- 1425 22 Jun, 2012 [facility] [place] [facility] [address] [id number] [place] [address]- 7592 18 Jun, 2012 [facility] [address] [id number] [place] [address]- 9018 08 Jun, 2012 [facility] [address] [id number] [place] [address]- 2579 Jun, [facility] [address] [id number] [place] [address]- 6009 Jun, [facility] [address] [id number] [place] [address]- 0117 May, [facility] [address] [id number] [place] [address]- 8713 May, [facility] [address] [id number] [place] [address]- 4213 May, [facility] [address] [id number] [place] [address]- 7053 May, [facility] [address] [id number] [place] [address]- 3992 Apr, [facility] [address] [id number] [place] [address]- 9130 Apr, [facility] [address] [id number] [place] [address]- 9968 Apr, [facility] [address] [id number] [place] [address]- 4894 Apr, [facility] [address] [id number] [place] [address]- 0520 Apr, [facility] [address] [id number] [place] [address]- 7268 Apr, [facility] [place] [facility] [address] [id number] [place] [address]- 0964 Apr, [facility] [place] [facility] [address] [id number] [place] [address]- 9725 Apr, [facility] [place] [facility] [address] [id number] [place] [address]- 5967 Apr, [facility] [place] [facility] [address] [id number] [place] [address]- 8057 Mar, [facility] [place] [facility] [address] [id number] [place] [address]- 6358 Mar, [facility] [place] [facility] [address] [id number] [place] [address]- 7736 Mar, [facility] [place] [facility] [address] [id number] [place] [address]- 3106 Mar, [facility] [place] [facility] [address] [id number] [place] [address]- 2196 Mar, [facility] [place] [facility] [address] [id number] [place] [address]- 9564 Mar, [facility] [place] [facility] [address] [id number] [place] [address]- 4702 Mar, [facility] [place] [facility] [address] [id number] [place] [address]- 4508 Mar, [facility] [place] [facility] [address] [id number] [place] [address]- 5662 Mar, [facility] [place] [facility] [address] [id number] [place] [address]- 1002 Mar, [facility] [place] [facility] [address] [id number] [place] [address]- 5394 Feb, [facility] [place] [facility] [address] [id number] [place] [address]- 5675 27 Feb, 2012 [facility] [place] [facility] [address] [id number] [place] [address]- 2704 Feb, [facility] [place] [facility] [address] [id number] [place] [address]- 6429 26 Feb, 2012 [facility] [place] [facility] [address] [id number] [place] [address]- 0006 15 Feb, 2012 [facility] [place] [facility] [address] [id number] [place] [address]- 5286 15 Feb, 2012 [facility] [place] [facility] [address] [id number] [place] [address]- 8029 Feb, [facility] [place] [facility] [address] [id number] [place] [address]- 5066 Jan, [facility] [place] [facility] [address] [id number] [place] [address]- 1672 Jan, [facility] [place] [facility] [address] [id number] [place] [address]- 3982 Jan, [facility] [place] [facility] [address] [id number] [place] [address]- 2186 Jan, [facility] [place] [facility] [address] [id number] [place] [address]- 0411 Jan, [facility] [place] [facility] [address] [id number] [place] [address]- 2729 Jan, [facility] [place] [facility] [address] [id number] [place] [address]- 1592 Jan, [facility] [place] [facility] [address] [id number], [place] [address]- 2262 Jan, [facility] [place] [facility] [address] [id number] [place] [address]- 9490 18 Jan, 2012 [facility] [place] [facility] [address] [id number][place] [address]- 4526 Jan, [facility] [place] [facility] [address] [id number], [place] [address]- 8014 27 Sep, 2011 [facility] [place] [facility] [address] [id number], [place] [address]- 5271 20 Sep, 2011 [facility] [place] [facility] [address] [id number] [place] [address]- 9442 17 Sep2011 [facility] [place] [facility] [address] [id number], [place] [address]- 8545 06 Sep, 2011 [facility] [place] [facility] [address] [facility] [id number], [place] [address]- 5323 05 Sep, 2011 [facility] [place] [facility] [address] [id number] [place] [address]- 6181 Dec, [facility] [place] [facility] [address] [id number] [place] [address]- 3293 Nov, [facility] [place] [facility] [address] [id number] [place] [address]- 8469 Nov, [facility] [place] [facility] [address] [id number] [place] [address]- 2679 Nov, [facility] [place] [facility] [address] [id number] [place] [address]- 3289 Nov, [facility] [place] [facility] [address] [id number] [place] [address]- 1665 Oct, [facility] [place] [facility] [address] [id number] [place] [address]- 6357 Oct, [facility] [place] [facility] [address] [id number] [place] [address]- 2081 Oct, [facility] [place] [facility] [address] [id number] [place] [address]- 0542 Oct, [facility] [place] [facility] [address] [id number] [place] [address]- 7214 Oct, [facility] [place] [facility] [address] [id number] [place] [address]- 8657 Oct, [facility] [place] [facility] [address] [id number] [place] [address]- 7938 Oct, [facility] [place] [facility] [address] [id number] [place] [address] 2543 Oct, [facility] [place] [facility] [address] [id number] [place] [address]- 1313 Sep, [facility] [place] [facility] [address] [id number] [place] [address]- 2218 Sep, [facility] [place] [facility] [address] [id number] [place] [address]- 8109 Sep, [facility] [place] [facility] [id number], [place] [address]- 3661 Sep, [facility] [id number] [address] August, [facility] [id number], [place] [address]- 6726 August, [facility] [id number], [place] [address]- 4887 Jul, [facility] [address] [facility] [id number], [place] [address]- 3683 Jun, [facility] [id number] [place] [address]- 9498 Jun, [facility] [address] [id number], [place] [address]- 0168 Jun, [facility] [id number], [place] [address]- 3844 Jun, [facility] [id number], [place] [address]- 8392 Jun, [facility] [id number], [place] [address]- 2787 Jun, [facility] [id number], [place] [address]- 7215 Jun, [facility] [id number], [place] [address]- 1083 Jun, [facility] [address] [id number], [place] [address]- 3607 May, [facility] [id number] [id number] 9003 May, [facility] [address] [id number], [place] [address]- 2705 Mar, IMMUNIZATIONS No Known Immunizations SOCIAL HISTORY Never Assessed REASON FOR VISIT MS Contin and Hydrocodone 04/09 PLAN OF CARE VITAL SIGNS MEDICATIONS Medication Instructions Dosage Frequency Start Date End Date Duration Status Hydrocodone-Acetaminophen 10-325 MG Orally every 4 hours 1 tablet 4h Mar 28 days Active MS Contin 60 mg Orally every 12 hrs 1 tablet 12h Mar, 28 days Active RESULTS No Results PROCEDURES [...] pneumonia 2012 Hospitalization History COPD exacerbation, acute bronchitis-[facility] 06/10/16
--- OUTSIDE RECORDS SUMMARY | 2018-06-11 16:22 | XMS REPORT ---
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 Phone SARA CONROY Unavailable PROBLEMS Type Condition ICD9-CM Code QGN76-LR Code Onset Dates Condition Status SNOMED Code Problem Chronic pain syndrome G89.4 Active 914530432 Problem Low serum testosterone E29.1 Active 056751428 Problem Back pain M54.9 Active 599716821 Problem Essential hypertension I10 Active 85620440 Problem Chronic obstructive pulmonary disease, unspecified J44.9 Active [id number] ALLERGIES No Information ENCOUNTERS Encounter Location Date Diagnosis [place] [address] [address] Jul, Medicare annual wellness visit, initial Z00.00 [place] [address] 89129- 8899 28 May, 2017 Back pain M54.9 [place] [address] 91542- 6095 13 May, 2017 Exposure to the flu Z20.828 [place] [address] [place] [id number] [place] [address] 81319- 8424 05 May, 2017 Chronic pain syndrome G89.4 ; Back pain M54.9 and Chronic obstructive pulmonary disease, unspecified J44.9 [place] [address] [place] [id number] [place] [address] 19712- 5879 May, Back pain M54.9 [place] [address] [place] [id number] [place] [address] 44797- 3234 Apr, Back pain M54.9 [place] [address] 69731- 2886 Mar, Back pain M54.9 [facility] [address] [facility] [id number] [place] [address] 27827- 7839 Feb, Back pain M54.9 [facility] [address] [place] [id number] [place] [address] 36415- 0619 Jan, Back pain M54.9 [facility] [address] [place] [id number] [place] [address] 41205- 8394 Dec, Chronic obstructive pulmonary disease, unspecified J44.9 and Back pain M54.9 [facility] [address] [facility] [id number] [place] [address] 91267- 5052 Dec, Back pain M54.9 [facility] [address] [place] [id number] [place] [address] 41213- 8822 Nov, Back pain M54.9 [facility] [address] [place] [id number] [place] [address] 40511- 7757 Oct, Essential hypertension I10 [facility] [address] [place] [id number] [place] [address] 03771- 1024 Oct, Back pain M54.9 [facility] [address] [place] [id number] [place] [address] 84153- 0000 Oct, [facility] [address] [place] [id number] [place] [address] 89548- 0010 Oct, [facility] [address] [place] [id number] [place] [address] 43607- 1863 Sep, Back pain M54.9 [facility] [address] [facility] [id number] [place] [address] 75135- 8160 August, [facility] [address] [place] [id number] [place] [address] 66913- 8826 August, Essential hypertension I10 [facility] [address] [place] [id number] [place] [address] 02092- 4259 August, Other dorsalgia M54.89 [facility] [address] [place] [id number] [place] [address] 83914- 8669 August, Back pain M54.9 ; Chronic obstructive pulmonary disease, unspecified J44.9 and Low serum testosterone E29.1 [facility] [address] [place] [id number] [place] [address] 39041- 7517 Jul, Other dorsalgia M54.89 [facility] [address] [place] [id number] [place] [address] 99546- 6213 Jun, Dorsalgia, unspecified M54.9 [facility] [address] [place] [id number] [place] [address] 05714- 6981 Jun, Dorsalgia, unspecified M54.9 [facility] [address] [place] [id number] [place] [address] 22610- 3170 Jun, [facility] [address] [place] [id number] [place] [address] 61779- 8221 Jun, Chronic obstructive pulmonary disease, unspecified J44.9 [facility] [address] [place] [id number] [place] [address] 40667- 0527 Jun, Back pain M54.9 [facility] [address] [place] [id number] [place] [address] 94944- 0244 May, Chronic obstructive pulmonary disease, unspecified J44.9 [facility] [address] [place] [id number] [place] [address] 24044- 0606 May, [facility] [address] [place] [id number] [place] [address] 89257- 3008 May, Other dorsalgia M54.89 [facility] [address] [place] [id number] [place] [address] 04538- 2966 Apr, [facility] [address] [place] [id number] [place] [address] 37744- 2543 Apr, Other dorsalgia M54.89 [facility] [address] [place] [id number] [place] [address] 23167- 3522 Mar, Chronic obstructive pulmonary disease, unspecified J44.9 ; Essential hypertension I10 and Back pain M54.9 [facility] [address] 97038- 5432 Mar, [facility] [address] 53781- 5549 Mar, Dorsalgia, unspecified M54.9 [facility] [address] 43509- 5383 Mar, Edema R60.9 [facility] [address] 43634- 0829 Feb, [facility] [address] 64866- 4928 Feb, Other dorsalgia M54.89 [facility] [address] 11771- 3574 Jan, Encounter for immunization Z23 and Chronic obstructive pulmonary disease, unspecified J44.9 [facility] [address] 20236- 3973 Jan, [facility] [address] 48071- 3181 14 Dec, 2015 [facility] [address] [place] [id number] [place] [address] 36337- 6749 Dec, [facility] [address] 53357- 6138 Dec, Essential hypertension I10 and Back pain M54.9 [facility] [address] [place] [id number] [place] [address] 28983- 2810 Nov, [facility] [address] 12514- 3166 Nov, [facility] [address] [place] [id number] [place] [address] 86099- 8069 Oct, Other dorsalgia M54.89 [facility] [address] [facility] [id number] [address]- 7667 Oct, [facility] [id number] [place] [address] 01270- 1939 Sep, [facility] [address] [place] [id number] [place] [address] 26161- 0287 Sep, [facility] [address] [place] [id number] [place] [address] 99799- 3993 Sep, [facility] [address] [place] [id number] [place] [address] 00974- 1460 August, [facility] [address] [place] [id number] [place] [address] 19765- 2992 August, Other dorsalgia M54.89 [facility] [id number] [place] [address] 02604- 5254 August, [facility] [id number] [place] [address] 50652- 3671 August, Chronic obstructive pulmonary disease, unspecified J44.9 and Back pain M54.9 [facility] [address] [address]- 4413 August, [facility] [address] [address]- 4805 August, [facility] [address] [address]- 6962 August, Chronic obstructive pulmonary disease, unspecified J44.9 [facility] [address] [id number] [address]- 0976 Jul, Other dorsalgia M54.89 [facility] [address] [id number] [address]- 7273 Jul, Insomnia G47.00 [facility] [address] [id number] [address]- 0159 Jun, Other dorsalgia M54.89 [facility] [address] [place] [id number] [place] [address] 90735 2546 Jun, Other dorsalgia M54.89 [facility] [address] [place] [id number] [place] [address] 96455 2546 May, COPD (chronic obstructive pulmonary disease) J44.9 and Bronchitis J40 [facility] [address] 06095 2546 May, Chronic obstructive pulmonary disease, unspecified J44.9 [facility] [address] [place] [id number] [place] [address] 11696 2546 May, [facility] [address] [place] [id number] [place] [address] 28563 2546 May, Other dorsalgia M54.89 [facility] [address] [place] [id number] [place] [address] 66290 2546 Apr, Chronic obstructive pulmonary disease, unspecified J44.9 [facility] [address] [place] [id number] [place] [address] 41164 2546 Apr, [facility] [address] [place] [id number] [place] [address] 82317 2546 Mar, [facility] [address] [place] [id number] [place] [address] 40206 2546 Mar, COPD (chronic obstructive pulmonary disease) J44.9 ; Back pain M54.9 and Edema R60.9 [facility] [address] [place] [id number] [place] [address] 34335 2546 11 Mar, 2015 [facility] [address] [place] [id number] [place] [address] 59954 2546 10 Mar, 2015 [facility] [address] [place] [id number] [place] [address] 57577 2546 24 Feb, 2015 [facility] [address] [place] [id number] [place] [address] 32832 2546 Feb, [facility] [address] [facility] [id number], [place] [address]- 9039 Feb, [facility] [address] [facility] [id number], [place] [address]- 1956 Jan, [facility] [address] [facility] [id number], [place] [address]- 5114 Jan, [facility] [address] [facility] [id number] [place] [address] 23907- 2287 Jan, [facility] [address] [facility] [id number], [place] [address]- 0633 Dec, Chronic airway obstruction, not elsewhere classified 496 ; Back pain 724.5 ; Flu vaccine need V04.81 and Prophylactic vaccination against streptococcus pneumoniae and influenza V06.6 [facility] [address] [facility] [id number], [place] [address]- 0704 Dec, [facility] [address] [facility] [id number], [place] [address]- 3410 Dec, [facility] [address] [facility] [id number], [place] [address]- 8062 Dec, [facility] [address] [id number] [address]- 4225 Nov, [facility] [address] [facility] [id number], [place] [address]- 4132 Nov, [facility] [address] [facility] [id number], [place] [address]- 4702 Nov, [facility] [address] [facility] [id number], [place] [address]- 2552 Oct, [facility] [address] [facility] [id number] 7522 Oct, [facility] [address] [facility] [id number] 7365 Oct, Unspecified arthropathy, 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 and Chronic airway obstruction, not elsewhere classified 496 [facility] [place] [facility] [address] [id number] [place] [address]- 5949 Oct, [facility] [place] [facility] [address] [id number] [place] [address]- 0544 Sep, [facility] [place] [facility] [address] [id number] [place] [address]- 4985 Sep, [facility] [place] [facility] [address] [id number] [place] [address]- 7455 Sep, [facility] [place] [facility] [address] [id number] [place] [address]- 9820 August, [facility] [place] [facility] [address] [id number] [place] [address]- 0573 August, [facility] [place] [facility] [address] [facility] [id number] [place] [address]- 3843 August, [facility] [place] [facility] [address] [facility] [id number] [place] [address]- 7202 August, [facility] [place] [facility] [address] [id number] [place] [address]- 2148 August, [facility] [place] [facility] [address] [facility] [id number] [place] [address]- 7282 Jul, [facility] [place] [facility] [address] [id number] [place] [address]- 7839 Jul, [facility] [place] [facility] [address] [id number], [place] [address]- 8990 Jun, [facility] [place] [facility] [address] [id number] [place] [address]- 8640 Jun, [facility] [place] [facility] [address] [facility] [id number] [place] [address]- 3487 Jun, [facility] [place] [facility] [address] [facility] [id number] [place] [address]- 9507 Jun, [facility] [place] [facility] [address] [facility] [id number] [place] [address]- 2699 Jun, [facility] [place] [facility] [address] [id number] [place] [address]- 2519 Jun, [facility] [place] [facility] [address] [id number] [place] [address]- 8156 May, [facility] [place] [facility] [address] [id number] [place] [address]- 2512 May, 2014 [facility] [place] [facility] [address] [id number] [place] [address]- 4510 May, [facility] [place] [facility] [address] [id number] [place] [address]- 1741 May, [facility] [place] [facility] [address] [id number] [place] [address]- 9779 May, [facility] [place] [facility] [address] [facility] [id number] [place] [address]- 4991 Apr, [facility] [place] [facility] [address] [id number] [place] [address]- 5159 Apr, [facility] [place] [facility] [address] [facility] [id number] [place] [address]- 8861 Apr, [facility] [place] [facility] [address] [facility] [id number] [place] [address]- 1885 Apr, [facility] [place] [facility] [address] [facility] [id number] [place] [address]- 1792 Apr, [facility] [place] [facility] [address] [id number] [place] [address]- 7883 Apr, [facility] [place] [facility] [address] [id number] [place] [address]- 3340 Apr, [facility] [place] [facility] [address] [facility] [id number] [place] [address]- 3177 Mar, [facility] [place] [facility] [address] [facility] [id number] [place] 7055 Mar, [facility] [place] [facility] [address] [id number] [place] [address]- 8758 Mar, [facility] [place] [facility] [address] [id number] [place] [address]- 5293 Mar, [facility] [place] [facility] [address] [id number] [place] 3587 Mar, [facility] [place] [facility] [address] [id number] [place] [address]- 5858 Mar, [facility] [place] [facility] [address] [id number] [place] [address]- 9638 Mar, [facility] [place] [facility] [address] [id number] [place] [address]- 1288 Mar, [facility] [place] [facility] [address] [id number] [place] [address]- 5909 Mar, [facility] [place] [facility] [address] [id number] [place] [address]- 4760 Mar, [facility] [place] [facility] [address] [id number] [place] [address]- 1676 Feb, [facility] [place] [facility] [address] [id number] [place] [address]- 4904 Feb, [facility] [place] [facility] [address] [id number] [place] [address]- 9018 Jan, [facility] [place] [facility] [address] [id number] [address]- 9072 20 Jan, 2014 [facility] [place] [facility] [address] [id number] [place] [address]- 0369 14 Jan, 2014 [facility] [place] [facility] [address] [id number] [place] [address]- 5528 14 Jan, 2014 [facility] [place] [facility] [address] [id number] [place] [address]- 1698 14 Jan, 2014 [facility] [place] [facility] [address] [id number], [place] [address]- 1251 14 Jan, 2014 [facility] [place] [facility] [address] [id number] [place] [address]- 2573 Jan, [facility] [place] [facility] [address] [id number] [place] [address]- 3092 Jan, [facility] [place] [facility] [address] [id number] [place] [address]- 8561 Jan, [facility] [place] [facility] [address] [id number] [place] [address]- 5431 Jan, [facility] [place] [facility] [address] [id number] [place] [address]- 1275 Jan, [facility] [place] [facility] [address] [id number] [place] [address]- 3653 Jan, [facility] [place] [facility] [address] [id number] [place] [address]- 0150 Dec, [facility] [place] [facility] [address] [id number] [place] [address]- 3814 Dec, [facility] [place] [facility] [address] [id number] [place] [address]- 6560 Dec, [facility] [place] [facility] [address] [id number] [place] [address]- 2153 Dec, [facility] [place] [facility] [address] [id number] [place] [address]- 8206 Dec, [facility] [place] [facility] [address] [id number], [place] [address]- 5482 Nov, [facility] [place] [facility] [address] [id number] [place] [address]- 3847 Nov, [facility] [place] [facility] [address] [facility] [id number] [place] [address]- 0766 Nov, [facility] [place] [facility] [address] [facility] [id number] [place] [address]- 4528 Nov, [facility] [place] [facility] [address] [id number] [place] [address]- 3561 Oct, 2013 [facility] [place] [facility] [address] [id number] [place] [address]- 6366 Oct, [facility] [place] [facility] [address] [id number] [place] [address]- 6930 Oct, 2013 [facility] [place] [facility] [address] [id number] [place] [address]- 5201 Oct, 2013 [facility] [place] [facility] [address] [id number] [place] [address]- 5377 Oct, 2013 [facility] [place] [facility] [address] [id number] [place] [address]- 0043 Oct, 2013 [facility] [place] [facility] [address] [id number] [place] [address]- 2457 Oct, [facility] [place] [facility] [address] [id number] [place] [address]- 9385 Oct, [facility] [place] [facility] [address] [id number] [place] [address]- 4105 Oct, [facility] [place] [facility] [address] [id number] [place] [address]- 8248 Oct, [facility] [place] [facility] [address] [id number] [place] [address]- 3497 Sep, [facility] [place] [facility] [address] [id number] [place] [address]- 3886 Sep, [facility] [place] [facility] [address] [id number] [place] [address]- 7876 Sep, [facility] [place] [facility] [address] [id number] [place] [address]- 9492 Sep, [facility] [place] [facility] [address] [id number] [place] [address]- 7639 Sep, [facility] [place] [facility] [address] [id number] [place] [address]- 2288 Sep, [facility] [place] [facility] [address] [id number] [place] [address]- 1899 August, [facility] [place] [facility] [address] [id number] [place] [address]- 5714 August, [facility] [place] [facility] [address] [id number] [place] [address]- 0289 August, [facility] [place] [facility] [address] [id number] [place] [address]- 3732 August, [facility] [place] [facility] [address] [id number] [place] [address]- 6577 August, [facility] [place] [facility] [address] [id number] [place] [address]- 0580 August, [facility] [place] [facility] [address] [id number] [place] [address]- 8615 Jul, [facility] [place] [facility] [address] [id number] [place] [address]- 9468 Jul, [facility] [place] [facility] [address] [id number] [place] [address]- 6750 Jul, [facility] [place] [facility] [address] [id number] [place] [address]- 2036 Jul, [facility] [place] [facility] [address] [id number] [place] [address]- 9376 Jul, [facility] [place] [facility] [address] [id number] [place] [address]- 9675 Jul, [facility] [place] [facility] [address] [id number] [place] [address]- 5811 Jul, [facility] [place] [facility] [address] [id number] [place] [address]- 2376 Jul, [facility] [place] [facility] [address] [id number] [place] [address]- 0196 Jul, [facility] [place] [facility] [address] [id number] [place] [address]- 3401 Jun, [facility] [place] [facility] [address] [id number] [place] [address]- 3766 Jun, [facility] [place] [facility] [address] [id number] [place] [address]- 4676 Jun, [facility] [place] [facility] [address] [id number] [place] [address]- 3026 May, [facility] [place] [facility] [address] [id number] [place] [address]- 7137 May, [facility] [place] [facility] [address] [id number] [place] [address]- 8646 May, [facility] [place] [facility] [address] [id number] [place] [address]- 1206 May, [facility] [place] [facility] [address] [id number] [place] [address]- 5249 May, [facility] [place] [facility] [address] [id number] [place] [address]- 7517 May, [facility] [place] [facility] [address] [id number] [place] [address] Apr, [facility] [place] [facility] [address] [id number] [place] [address] Apr, [facility] [place] [facility] [address] [id number] [place] [address] Apr, [facility] [place] [facility] [address] [id number] [place] [address] Apr, [facility] [place] [facility] [address] [id number] [place] [address] Apr, [facility] [place] [facility] [address] [id number] [place] [address] Apr, [facility] [place] [facility] [address] [id number] [place] [address] Apr, [facility] [address] [id number] [place] [address] Apr, [facility] [place] [facility] [address] [id number] [place] [address] Apr, [facility] [address] [id number] [place] [address] Apr, [facility] [place] [facility] [address] [id number] [place] [address] Mar, [facility] [address] [id number] [place] [address] Mar, [facility] [place] [facility] [address] [id number] [place] [address] Mar, [facility] [place] [facility] [address] [id number] [place] [address] Mar, [facility] [address] [id number] [place] [address] Mar, [facility] [place] [facility] [address] [id number] [place] [address] Mar, [facility] [place] [facility] [address] [id number] [place] [address] Mar, [facility] [place] [facility] [address] [id number] [place] [address] Mar, [facility] [place] [facility] [address] [id number] [address] Mar, [facility] [place] [facility] [address] [id number] [place] [address] Mar, [facility] [place] [facility] [address] [id number] [place] [address] Mar, [facility] [place] [facility] [address] [id number] [place] [address] Feb, [facility] [place] [facility] [address] [id number] [place] [address] Feb, [facility] [place] [facility] [address] [id number] [place] [address] Feb, [facility] [place] [facility] [address] [id number] [place] [address] Feb, [facility] [place] [facility] [address] [id number] [place] [address] Feb, [facility] [place] [facility] [address] [id number] [place] [address]- [address] Feb, [facility] [place] [facility] [address] [id number] [place] [address] Feb, [facility] [place] [facility] [address] [id number] [place] [address] Feb, [facility] [place] [facility] [address] [id number] [place] [address] Feb, [facility] [place] [facility] [address] [id number] [place] [address] Feb, [facility] [place] [facility] [address] [id number] [place] [address] Feb, [facility] [place] [facility] [address] [facility] [id number] [place] [address] Feb, [facility] [place] [facility] [address] [id number] [place] [address] 120[address] Jan, [facility] [place] [facility] [address] [id number], [place] [address] Jan, [facility] [place] [facility] [address] [id number] [place] [address] Jan, [facility] [place] [facility] [address] [id number] [place] [address] Jan, [facility] [place] [facility] [address] [facility] [id number], [place] [address] Jan, [facility] [place] [facility] [address] [id number] [place] [address] 18 Jan, 2013 [facility] [place] [facility] [address] [id number] [place] [address] Jan, [facility] [place] [facility] [address] [id number] [place] [address] 15 Jan, 2013 [facility] [place] [facility] [address] [id number] [place] [address] Jan, [facility] [place] [facility] [address] [id number] [place] [address] 27 Dec, 2012 [facility] [place] [facility] [address] [id number] [place] [address]- [address] 18 Dec, 2012 [facility] [place] [facility] [address] [id number] [place] [address] 17 Dec, 2012 [facility] [place] [facility] [address] [id number] [place] [address]- [address] 11 Dec, 2012 [facility] [place] [facility] [address] [id number] [place] [address]- [address] 05 Dec, 2012 [facility] [place] [facility] [address] [id number] [place] [address] Nov, [facility] [place] [facility] [address] [id number] [place] [address]- [address] Nov, [facility] [place] [facility] [address] [id number] [place] [address] Oct, [facility] [place] [facility] [address] [id number] [place] [address] Oct, [facility] [place] [facility] [address] [id number] [place] [address] Oct, [facility] [place] [facility] [address] [id number] [place] [address] Oct, [facility] [place] [facility] [address] [id number] [place] [address] Oct, [facility] [place] [facility] [address] [id number] [place] [address] Oct, [facility] [place] [facility] [address] [id number] [place] [address] Sep, [facility] [place] [facility] [address] [id number] [place] [address] Sep, [facility] [place] [facility] [address] [id number] [place] [address] Sep, [facility] [place] [facility] [address] [id number] [place] [address] Sep, [facility] [place] [facility] [address] [id number] [place] [address] Sep, [facility] [place] [facility] [address] [id number] [place] [address] Sep, [facility] [place] [facility] [address] [id number] [place] [address] Sep, [facility] [place] [facility] [address] [id number] [place] [address] August, [facility] [place] [facility] [address] [id number] [place] [address] August, [facility] [place] [facility] [address] [id number] [place] [address] August, [facility] [place] [facility] [address] [id number] [place] [address] 9[address] August, [facility] [place] [facility] [address] [id number] [place] [address] August, [facility] [place] [facility] [address] [id number] [place] [address] August, [facility] [place] [facility] [address] [id number] [place] [address] Jul, [facility] [place] [facility] [address] [id number] [place] [address] 23 Jul, 2012 [facility] [address] [id number] [place] [address] 17 Jul, 2012 [facility] [address] [id number] [place] [address] 10 Jul, 2012 [facility] [address] [id number] [place] [address] 27[address] 08 Jul, 2012 [facility] [address] [id number] [place] [address] Jul, [facility] [address] [id number] [place] [address] 5973 28 Jun, 2012 [facility] [address] [id number] [place] [address] Jun, [facility] [address] [id number] [place] [address] 8689 Jun, [facility] [address] [id number] [place] [address] 8605 Jun, [facility] [address] [id number] [place] [address] 9[address] Jun, [facility] [address] [id number] [place] [address] 3690 Jun, [facility] [address] [id number] [place] [address] 0104 May, [facility] [address] [id number] [place] [address] 4173 May, [facility] [address] [id number] [place] [address] 1444 May, [facility] [address] [id number] [place] [address] 2546 May, [facility] [address] [id number] [place] [id number] Apr, [facility] [address] [id number] [place] [address]- 8537 Apr, [facility] [address] [id number] [place] [address] 6716 Apr, [facility] [address] [id number] [place] [address] 7477 Apr, [facility] [place] [facility] [address] [id number] [place] [address]- 2234 Apr, [facility] [address] [id number] [place] [address] 3286 Apr, [facility] [address] [id number] [place] [address] 0307 Apr, [facility] [address] [id number] [place] [address]- 5350 Apr, [facility] [address] [id number] [place] [address] 9014 Apr, [facility] [address] [id number] [place] [address]286 Mar, [facility] [address] [id number] [place] [address] 8160 Mar, [facility] [place] [facility] [address] [id number] [place] [address] 3315 Mar, [facility] [place] [facility] [address] [id number], [place] [address] Mar, [facility] [place] [facility] [address] [id number] [place] [address]- 6083 Mar, [facility] [place] [facility] [address] [id number] [place] [address]- 3568 Mar, [facility] [place] [facility] [address] [id number] [place] [address]- 8876 Mar, [facility] [place] [facility] [address] [id number] [place] [address]- [address]394 05 Mar, 2012 [facility] [place] [facility] [address] [id number] [place] [address]- 6252 Mar, [facility] [place] [facility] [address] [facility] [id number] [place] [address]- 2092 Mar, [facility] [place] [facility] [address] [facility] [id number] [place] [address]- 3626 Feb, [facility] [place] [facility] [address] [id number] [place] [address] 2258 27 Feb, 2012 [facility] [place] [facility] [address] [id number] [place] [address] 3920 Feb, [facility] [place] [facility] [address] [id number] [place] [address]- 0536 Feb, [facility] [place] [facility] [address] [facility] [id number] [place] [address]- 1510 Feb, [facility] [place] [facility] [address] [facility] [id number] [place] [address]- 6976 15 Feb, 2012 [facility] [place] [facility] [address] [facility] [id number] [place] [address]- 3071 14 Feb, 2012 [facility] [place] [facility] [address] [facility] [id number] [place] [address]- 6081 Jan, [facility] [place] [facility] [address] [facility] [id number] [place] [address]- 4381 Jan, [facility] [place] [facility] [address] [facility] [id number], [place] [address]84 Jan, [facility] [place] [facility] [address] [id number] [place] [address]- 4360 Jan, [facility] [place] [facility] [address] [facility] [id number] [place] [address]- 7636 Jan, [facility] [place] [facility] [address] [facility] [id number], [place] [address] 6438 Jan, [facility] [place] [facility] [address] [id number] [place] [address]- 0367 Jan, [facility] [place] [facility] [address] [id number] [place] [address]- 9396 Jan, [facility] [place] [facility] [address] [id number] [place] [address]- 8004 Jan, [facility] [place] [facility] [address] [id number] [place] [address]- 2891 Jan, [facility] [place] [facility] [address] [id number] [place] [address]- 7355 27 Dec, 2011 [facility] [place] [facility] [address] [id number] [place] [address]- 6694 20 Dec, 2011 [facility] [place] [facility] [address] [id number] [place] [address]- 6761 17 Dec, 2011 [facility] [place] [facility] [address] [id number] [place] [address]- 3394 06 Dec, 2011 [facility] [place] [facility] [address] [id number] [place] [address]- 6830 05 Dec, 2011 [facility] [place] [facility] [address] [id number] [place] [address]- 7793 02 Dec, 2011 [facility] [place] [facility] [address] [id number] [place] [address]- 2834 30 Nov, 2011 [facility] [place] [facility] [address] [id number] [place] [address]- 2298 Nov, [facility] [place] [facility] [address] [id number] [place] [address]- 5743 Nov, [facility] [place] [facility] [address] [id number] [place] [address]- 1618 Nov, [facility] [place] [facility] [address] [id number] [place] [address]- 4805 Oct, [facility] [place] [facility] [address] [id number] [place] [address]- 1207 Oct, [facility] [place] [facility] [address] [id number] [place] [address]- 1228 Oct, [facility] [place] [facility] [address] [id number] [place] [address]- 2565 Oct, [facility] [place] [facility] [address] [id number] [place] [address]- 7156 Oct, [facility] [place] [facility] [address] [id number] [place] [address]- 9802 Oct, [facility] [place] [facility] [address] [id number] [place] [address]- 0692 Oct, [facility] [place] [facility] [address] [id number] [place] [address]- 9566 Oct, [facility] [place] [facility] [address] [id number] [place] [address]- 9077 Sep, [facility] [place] [facility] [address] [id number] [place] [address]- 9876 Sep, [facility] [place] [facility] [address] [id number] [place] [address]- 1359 Sep, [facility] [place] [facility] [address] [id number] [place] [address]- 9716 Sep, [facility] [place] [facility] [address] [id number] [place] [address]- 6800 August, [facility] [place] [facility] [address] [id number] [place] [address]- 4303 August, [facility] [place] [facility] [address] [id number] [place] [address]- 9751 Jul, [facility] [place] [facility] [address] [id number] [place] [address]- 1455 Jun, [facility] [place] [facility] [address] [id number] [place] [address]- 7397 Jun, [facility] [place] [facility] [address] [id number], [place] [address] Jun, [facility] [address] [id number], [place] [address]- 2577 Jun, [facility] [id number] [id number] Jun, [facility] [address] [id number], [place] [address]- 3710 Jun, [facility] [id number], [place] [address]- 0111 Jun, [facility] [id number], [place] [address]- 1697 Jun, [facility] [id number], [place] [address]- 6489 May, [facility] [id number], [place] [address]- 1537 May, [facility] [address] [id number], [place] [address]- 2399 Mar, IMMUNIZATIONS No Known Immunizations SOCIAL HISTORY Never Assessed REASON FOR VISIT Hydrocodone and Morphine- 10/23 PLAN OF CARE VITAL SIGNS MEDICATIONS Medication [...]
--- OUTSIDE RECORDS SUMMARY | 2018-06-11 16:22 | XMS REPORT ---
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 [address]-53 108 (90 Base) MCG/ACT Inhalation every 4 hrs May 26, 2015 2 puffs as needed Results No Known Results Summary Purpose eClinicalWorks Submission
--- OUTSIDE RECORDS SUMMARY | 2018-06-11 16:23 | XMS REPORT ---
Author Author SARA CONROY [facility] Address [address] [place] [address] Care Team Providers Care Hatch Supervisor Name Role Phone SARA CONROY Unavailable PROBLEMS Type Condition ICD9-CM Code [id number] Code Onset Dates Condition Status SNOMED Code Problem Low serum testosterone E29.1 Active 522847611 Problem Essential hypertension I10 Active 81770333 Problem Chronic obstructive pulmonary disease, unspecified J44.9 Active 47388515 Problem Back pain M54.9 Active 084968973 ALLERGIES No Information SOCIAL HISTORY Never Assessed PLAN OF CARE VITAL SIGNS MEDICATIONS Medication Instructions Dosage Frequency Start Date End Date Duration Status Cefdinir 300 MG Orally every 12 hrs 1 capsule 12h Jun, Jun, 10 day(s) Active RESULTS No Results PROCEDURES No Known [...] 2012 Hospitalization History COPD exacerbation, acute bronchitis-[facility] 06/10/16
--- OUTSIDE RECORDS SUMMARY | 2018-06-11 16:23 | XMS REPORT ---
Author Author SARA CONROY [facility] Address [address] [place] [address] Care Team Providers Care Stator Plate Washer Name Role Phone SARA CONROY Unavailable PROBLEMS Type Condition ICD9-CM Code [id number] Code Onset Dates Condition Status SNOMED Code Problem Essential hypertension I10 Active 01227487 Problem Chronic obstructive pulmonary disease, unspecified J44.9 Active 12758095 Problem Depressive disorder, not elsewhere classified 311 Active 33178781 Problem Back pain M54.9 Active 772645158 Problem Reflux esophagitis 530.11 Active 769100148 ALLERGIES Unknown Allergies SOCIAL HISTORY No smoking Hx information available PLAN OF CARE VITAL SIGNS MEDICATIONS Medication Instructions Dosage Frequency Start Date End Date Duration Status Proventil HFA 108 (90 Base) MCG/ACT Inhalation every 4 hrs 2 puffs as needed 4h Active RESULTS No Results PROCEDURES No Known procedures IMMUNIZATIONS No Known Immunizations
--- OUTSIDE RECORDS SUMMARY | 2018-06-11 16:23 | XMS REPORT ---
Author Author SARA CONROY [facility] eClinicalWorks Address Unknown Phone Unavailable Care Team Providers Care Java Programmer Analyst Name Role Phone SARA CONROY CP Unavailable Allergies No Known Allergies Problems Problem Type Condition Code Onset Dates Condition Status Problem Back pain M54.9 Active Problem Reflux esophagitis 530.11 Active Problem Chronic obstructive pulmonary disease, unspecified J44.9 Active Problem Depressive disorder, not elsewhere classified 311 Active Medications Medication Code System Code Instructions Start Date End Date Status Dosage Zolpidem Tartrate [facility] [address]-65 5 MG Orally Once a day TAKE ONE TABLET BY MOUTH ONCE DAILY NEEDED Results No Known Results Summary Purpose eClinicalWorks Submission
--- OUTSIDE RECORDS SUMMARY | 2018-06-11 16:23 | XMS REPORT ---
Author Author SARA CONROY Organization [employer] Address Unknown Phone Unavailable Care Team Providers Care Chief Of Surgery Name Role Phone SARA CONROY CP Unavailable Allergies No Known Allergies Problems Problem Type Condition Code Onset Dates Condition Status Problem Back pain M54.9 Active Problem Reflux esophagitis 530.11 Active Problem Chronic obstructive pulmonary disease, unspecified J44.9 Active Problem Depressive disorder, not elsewhere classified 311 Active Medications Medication Code System Code Instructions Start Date End Date Status Dosage Hydrocodone-Acetaminophen [facility] [address]-64 10-325 MG Orally every 4 hours July 06, 2014 1 tablet MS Contin [facility] [address]-85 60 MG Orally every 12 hrs July 06, 2014 1 tablet by Oral route every 12 hours 28 day supply Results No Known Results Summary Purpose eClinicalWorks Submission
--- OUTSIDE RECORDS SUMMARY | 2018-06-11 16:23 | XMS REPORT ---
Author Author SARA CONROY Organization [facility] Address [address] [place] [address] Care Team Providers Care Build Engineer Name Role Phone SARA CONROY Unavailable PROBLEMS Type Condition ICD9-CM Code [id number] Code Onset Dates Condition Status SNOMED Code Problem Low serum testosterone E29.1 Active 669222391 Problem Essential hypertension I10 Active 55775757 Problem Chronic obstructive pulmonary disease, unspecified J44.9 Active 94765470 Problem Back pain M54.9 Active 120548463 ALLERGIES No Information SOCIAL HISTORY Never Assessed PLAN OF CARE VITAL SIGNS MEDICATIONS Medication Instructions Dosage Frequency Start Date End Date Duration Status MS Contin 60 mg Orally every 12 hrs 1 tablet 12h Jun, 28 days Active Hydrocodone-Acetaminophen 10-325 MG Orally every 4 hours 1 tablet 4h Jun 28 days Active RESULTS No Results PROCEDURES [...]
--- OUTSIDE RECORDS SUMMARY | 2018-06-11 16:24 | XMS REPORT ---
Author Author SARA CONROY Organization e[employer] Address Unknown Phone Unavailable Care Team Providers Care Lumber Stacker Driver Name Role Phone SARA CONROY CP Unavailable [...] Date End Date Status Dosage MS Contin [facility] [address]-93 60 MG Orally every 12 hrs July 06, 2014 1 tablet by Oral route every 12 hours 28 day supply Hydrocodone-Acetaminophen [facility] [address]-49 10-325 MG Orally every June 1 tablet by Oral route every 4 hours PRN 28 day supply Results No Known Results Summary Purpose eClinicalWorks Submission
--- OUTSIDE RECORDS SUMMARY | 2018-06-11 16:24 | XMS REPORT ---
Author Author SARA CONROY [facility] eClinicalWorks Address Unknown Phone Unavailable Care Team Providers Care Caramel Cutter Hand Name Role Phone SARA CONROY CP Unavailable [...] Instructions Start Date End Date Status Dosage Benazepril HCl [facility] [address]-56 20 MG Orally Once a day 1 tablet Results No Known Results Summary Purpose eClinicalWorks Submission
--- OUTSIDE RECORDS SUMMARY | 2018-06-11 16:24 | XMS REPORT ---
Author Author SARA CONROY [facility] Address [address] [place] [address] Care Team Providers Care Mixer Lever Operator Name Role Phone SARA CONROY Unavailable PROBLEMS Type Condition ICD9-CM Code [id number] Code Onset Dates Condition Status SNOMED Code Problem Chronic pain syndrome G89.4 Active 152021796 Problem Low serum testosterone E29.1 Active 424442252 Problem Back pain M54.9 Active 884469530 Problem Essential hypertension I10 Active 61181304 Problem Chronic obstructive pulmonary disease, unspecified J44.9 Active 85771185 ALLERGIES Substance Reaction Event Type Date Status Tramadol HCl itching Drug Allergy Dec, Active Soma Makes pt mean Drug Allergy Dec, Active Boniva rash Drug Allergy Dec, Active Fentanyl Patches Unknown Non Drug Allergy Dec, Active ENCOUNTERS Encounter Location Date Diagnosis [place] [id number] [place] [address] 89982- 9571 Jul, Back pain M54.9 [place] [address] [place] [id number] [place] [address] 36854- 2218 Jul, Medicare annual wellness visit, initial Z00.00 ; Chronic obstructive pulmonary disease, unspecified J44.9 ; Back pain M54.9 ; Chronic pain syndrome G89.4 ; Essential hypertension I10 ; Low serum testosterone E29.1 ; Smoking history Z87.891 and Encounter for immunization Z23 [place] [id number] [place] [address] 47118- 1392 Jul, [place] [address] [place] [id number] [place] [address] 77840- 0403 Jun, Back pain M54.9 [place] [id number] [place] [address] 07433- 9132 28 May, 2017 Back pain M54.9 [facility] [address] [place] [address] [id number] [place] [address] 41875- 9433 May, Exposure to the flu Z20.828 [facility] [address] [place] [address] [id number] [place] [address] 54862- 1592 May, Chronic pain syndrome G89.4 ; Back pain M54.9 and Chronic obstructive pulmonary disease, unspecified J44.9 [facility] [address] [place] [id number] [place] [address] 13037- 2185 May, Back pain M54.9 [facility] [address] [place] [address] [id number] [place] [address] 51632- 2277 Apr, Back pain M54.9 [facility] [address] [place] [address] [id number] [place] [address] 11473- 9956 Mar, Back pain M54.9 [facility] [address] [place] [address] [id number] [place] [address] 09647- 8501 Feb, Back pain M54.9 [facility] [address] [place] [address] [id number] [place] [address] 30485- 1283 Jan, Back pain M54.9 [facility] [address] [place] [address] [id number] [place] [address] 79491- 8610 Dec, Chronic obstructive pulmonary disease, unspecified J44.9 and Back pain M54.9 [facility] [address] [place] [id number] [place] [address] 57499- 8985 Dec, Back pain M54.9 [facility] [address] [place] [id number] [place] [address] 90832- 9586 Nov, Back pain M54.9 [facility] [address] [place] [address] [id number] [place] [address] 19153- 9799 Oct, Essential hypertension I10 [facility] [address] [place] [id number] [place] [address] 77467- 9725 Oct, Back pain M54.9 [facility] [address] [address]- 4746 Oct, [facility] [id number] [place] [address] 13608- 1304 Oct, [facility] [id number] [place] [address] 27958- 8406 Sep, Back pain M54.9 [facility] [address] [place] [id number] [place] [address] 24587- 0019 August, [facility] [address] [place] [id number] [place] [address] 88512- 7470 August, Essential hypertension I10 [facility] [address] [place] [id number] [place] [address] 34014- 0809 August, Other dorsalgia M54.89 [facility] [address] [place] [id number] [place] [address] 05814- 5684 August, Back pain M54.9 ; Chronic obstructive pulmonary disease, unspecified J44.9 and Low serum testosterone E29.1 [facility] [address] [address]- 5342 Jul, Other dorsalgia M54.89 [facility] [id number] [place] [address] 68419- 5912 Jun, Dorsalgia, unspecified M54.9 [facility] [address] [address]- 0265 Jun, Dorsalgia, unspecified M54.9 [facility] [address] [address]- 1087 Jun, [facility] [address] [place] [id number] [place] [address] 25216- 4037 Jun, Chronic obstructive pulmonary disease, unspecified J44.9 [facility] [address], [place] [address]- 5072 Jun, Back pain M54.9 [facility] [address] [place] [id number] [place] [address] 16715- 3195 May, Chronic obstructive pulmonary disease, unspecified J44.9 [facility] [address] [place] [id number] [place] [address] 99329- 8016 May, [facility] [address] [place] [id number] [place] [address] 12799- 3203 May, Other dorsalgia M54.89 [facility] [address] [place] [id number] [place] [address] 80462- 5627 Apr, [facility] [address] 08072- 7542 Apr, Other dorsalgia M54.89 [facility] [address] [place] [id number] [place] [address] 60170- 8651 Mar, Chronic obstructive pulmonary disease, unspecified J44.9 ; Essential hypertension I10 and Back pain M54.9 [facility] [address] [place] [id number] [place] [address] 78517- 3204 Mar, [facility] [address] [place] [id number] [place] [address] 18944- 5215 Mar, Dorsalgia, unspecified M54.9 [facility] [address] [place] [id number] [place] [address] 44621- 4307 Mar, Edema R60.9 [facility] [address] [place] [id number] [place] [address] 46162- 9181 Feb, [facility] [address] [place] [id number] [place] [address] 83362- 5054 Feb, Other dorsalgia M54.89 [facility] [address] [place] [id number] [place] [address] 41607- 0971 Jan, Encounter for immunization Z23 and Chronic obstructive pulmonary disease, unspecified J44.9 [facility] [address] [place] [id number] [place] [address] 74757- 2167 Jan, [facility] [address] [address]- 8097 14 Dec, 2015 [facility] [address] [place] [id number] [place] [address] 43303- 6154 13 Dec, 2015 [facility] [address] [place] [id number] [place] [address] 13336- 4092 13 Dec, 2015 Essential hypertension I10 and Back pain M54.9 [facility] [id number] [place] [address] 96736- 1309 Nov, [facility] [address] [place] [id number] [place] [address] 01006- 9161 Nov, [facility] [address] [place] [id number] [place] [address] 82401- 0242 Oct, Other dorsalgia M54.89 [facility] [address] [place] [id number] [place] [address] 99310- 4859 Oct, [facility] [id number] [place] [address] 77033- 4906 Sep, [facility] [address] [place] [id number] [place] [address] 93652- 8910 Sep, [facility] [id number] [place] [address] 92582- 3921 Sep, [facility] [id number] [place] [address] 53375- 6550 August, [facility] [address] [address]- 1470 August, Other dorsalgia M54.89 [facility] [address] [place] [address], [place] [address]- 9462 August, [facility] [address] [address]- 7514 August, Chronic obstructive pulmonary disease, unspecified J44.9 and Back pain M54.9 [facility] [address] [place] [id number] [place] [address] 27029- 6143 August, [facility] [address] [place] [id number] [place] [address] 67133- 2446 August, [facility] [address] [place] [id number] [place] [address] 60450- 6466 August, Chronic obstructive pulmonary disease, unspecified J44.9 [facility] [address] [place] [id number] [place] [address] 85649- 0907 Jul, Other dorsalgia M54.89 [facility] [address] [place] [id number] [place] [address] 54936- 4875 Jul, Insomnia G47.00 [facility] [address] [place] [id number] [place] [address] 83746- 9329 Jun, Other dorsalgia M54.89 [facility] [address] [place] [id number] [place] [address] 17329- 4625 Jun, Other dorsalgia M54.89 [facility] [address] [place] [id number] [place] [address] 45777- 2090 May, COPD (chronic obstructive pulmonary disease) J44.9 and Bronchitis J40 [facility] [address] [place] [id number] [place] [address] 83173- 0361 May, Chronic obstructive pulmonary disease, unspecified J44.9 [facility] [address] [place] [id number] [place] [address] 87975- 2257 May, [facility] [address] [place] [id number] [place] [address] 70127- 3038 May, Other dorsalgia M54.89 [facility] [address] [place] [id number] [place] [address] 87732- 2567 Apr, Chronic obstructive pulmonary disease, unspecified J44.9 [facility] [address] [place] [id number] [place] [address] 05663- 9224 Apr, [facility] [address] [address]- 8917 14 Mar, 2015 [facility] [address] [place] [id number] [place] [address] 94851- 7700 Mar, COPD (chronic obstructive pulmonary disease) J44.9 ; Back pain M54.9 and Edema R60.9 [facility] [address] [place] [id number] [place] [address] 97319- 4919 Mar, [facility] [address] [place] [id number] [place] [address] 80697- 6711 Mar, [facility] [address] [place] [id number] [place] [address] 77104- 3388 Feb, [facility] [address] [place] [id number] [place] [address] 46926- 1958 Feb, [facility] [address] [place] [id number] [place] [address] 49920- 9650 Feb, [facility] [address] [place] [id number] [place] [address] 88545- 3750 Jan, [facility] [address] [place] [id number] [place] [address] 61333- 2680 Jan, [facility] [id number] [place] [address] 69901- 9872 Jan, [facility] [address] [place] [id number] [place] [address] 36494- 6937 Dec, Chronic airway obstruction, not elsewhere classified 496 ; Back pain 724.5 ; Flu vaccine need V04.81 and Prophylactic vaccination against streptococcus pneumoniae and influenza V06.6 [facility] [address] [place] [id number] [place] [address] 86059- 4850 Dec, [facility] [address] [place] [id number] [place] [address] 65513- 5840 Dec, [facility] [address] [place] [id number] [place] [address] 26448- 6422 Dec, [facility] [address] [facility] [id number] [place] [address]- 9322 Nov, [facility] [address] [facility] [id number] [place] [address]- 7006 Nov, [facility] [address] [facility] [id number] [place] [address]- 1466 Nov, [facility] [address] [facility] [id number] [place] [address]- 6074 Oct, [facility] [address] [facility] [id number] [place] [address]- 4284 Oct, [facility] [address] [facility] [id number] [place] [address]- 2836 Oct, Unspecified arthropathy, 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 and Chronic airway obstruction, not elsewhere classified 496 [facility] [address] [place] [address]- 0636 Oct, [facility] [address] [facility] [id number] [place] [address]- 7779 Sep, [facility] [address] [place] [id number] [place] [address]- 5516 Sep, [facility] [address] [place] [id number] [place] [address]- 4736 Sep, [facility] [address] [place] [id number] [place] [address]- 5816 August, [facility] [address] [id number] [place] [address]- 2386 August, [facility] [address] [facility] [id number] [place] [address]- 2026 August, [facility] [address] [facility] [id number] [place] [address]- 3446 August, [facility] [address] [place] [id number] [place] [address]- 3620 August, [facility] [place] [facility] [address] [id number] [place] [address]- 4056 Jul, [facility] [place] [facility] [address] [id number] [place] [address]- 6485 Jul, [facility] [place] [facility] [address] [id number] [place] [address]- 5180 Jun, [facility] [place] [facility] [address] [id number] [place] [address]- 5669 Jun, [facility] [place] [facility] [address] [id number] [place] [address]- 7533 Jun, [facility] [place] [facility] [address] [id number] [place] [address]- 5662 Jun, [facility] [place] [facility] [address] [facility] [id number] [place] [address]- 8528 Jun, [facility] [place] [facility] [address] [id number] [place] [address]- 0430 Jun, [facility] [place] [facility] [address] [id number] [place] [address]- 4394 May, [facility] [place] [facility] [address] [id number] [place] [address]- 2567 May, [facility] [place] [facility] [address] [id number] [place] [address]- 0279 May, [facility] [place] [facility] [address] [id number], [place] [address]- 7893 May, [facility] [place] [facility] [address] [id number] [place] [address]- 4721 May, [facility] [place] [facility] [address] [id number] [place] [address]- 9757 Apr, [facility] [place] [facility] [address] [id number] [place] [address]- 5424 Apr, [facility] [place] [facility] [address] [id number] [place] [address]- 5479 Apr, [facility] [address] [id number] [place] [address]- 1597 Apr, [facility] [address] [id number] [place] [address]- 0802 Apr, [facility] [address] [id number] [place] [address]- 6653 Apr, [facility] [address] [id number] [place] [address]- 1846 Apr, [facility] [address] [id number] [place] [address]- 9984 Mar, [facility] [address] [id number] [place] [address]- 7057 Mar, [facility] [address] [id number] [place] [address]- 1917 Mar, [facility] [address] [id number] [place] [address]- 6050 Mar, [facility] [address] [id number] [place] [address]- 1158 Mar, [facility] [address] [id number] [place] [address]- 0567 Mar, [facility] [place] [facility] [address] [id number] [place] [address]- 7353 Mar, [facility] [address] [id number] [place] [address]- 1692 Mar, [facility] [place] [facility] [address] [id number] [place] [address]- 5229 Mar, [facility] [place] [facility] [address] [id number] [place] 1435 Mar, [facility] [place] [facility] [address] [id number] [place] [address]- 7283 Feb, [facility] [place] [facility] [address] [id number] [place] [address]- 0758 17 Feb, 2014 [facility] [place] [facility] [address] [id number] [place] [address]- 7342 Jan, [facility] [place] [facility] [address] [id number] [place] [address]- 9267 20 Jan, 2014 [facility] [place] [facility] [address] [id number] [place] [address]- 6017 14 Jan, 2014 [facility] [place] [facility] [address] [id number] [place] [address]- 1601 14 Jan, 2014 [facility] [place] [facility] [address] [id number] [place] [address]- 8319 14 Jan, 2014 [facility] [place] [facility] [address] [id number] [place] [address]- 3016 14 Jan, 2014 [facility] [place] [facility] [address] [id number] [place] [address]- 7193 Jan, [facility] [place] [facility] [address] [id number] [place] [address]- 7878 Jan, [facility] [place] [facility] [address] [id number] [place] [address]- 4419 Jan, [facility] [place] [facility] [address] [id number] [place] [address]- 8396 Jan, [facility] [place] [facility] [address] [id number], [place] [address]- 9955 Jan, [facility] [place] [facility] [address] [id number] [place] [address]- 8727 Jan, [facility] [place] [facility] [address] [id number] [place] [address]- 9640 Dec, [facility] [place] [facility] [address] [id number], [place] [address]- 2790 Dec, [facility] [place] [facility] [address] [id number], [place] [address]- 7474 Dec, [facility] [place] [facility] [address] [id number] [place] [address]- 4960 Dec, [facility] [place] [facility] [address] [id number] [place] [address]- 2028 Dec, [facility] [place] [facility] [address] [id number] [place] [address]- 8679 Nov, [facility] [place] [facility] [address] [id number] [place] [address]- 6906 Nov, [facility] [place] [facility] [address] [id number] [place] [address]- 6275 Nov, [facility] [place] [facility] [address] [id number] [place] [address]- 3217 Nov, [facility] [place] [facility] [address] [id number] [place] [address]- 5994 Oct, [facility] [place] [facility] [address] [id number] [place] [address]- 1384 Oct, [facility] [place] [facility] [address] [id number] [place] [address]- 6344 Oct, [facility] [place] [facility] [address] [id number] [place] [address]- 6884 Oct, [facility] [place] [facility] [address] [id number] [place] [address]- 2299 Oct, [facility] [place] [facility] [address] [id number] [place] [address]- 6151 Oct, [facility] [place] [facility] [address] [id number] [place] [address]- 3524 Oct, [facility] [place] [facility] [address] [id number] [place] [address] Oct, [facility] [place] [facility] [address] [id number] [place] [address] Oct, [facility] [place] [facility] [address] [id number] [place] [address] Oct, [facility] [place] [facility] [address] [id number] [place] [address] Sep, [facility] [place] [facility] [address] [id number] [place] [address] Sep, [facility] [place] [facility] [address] [id number] [place] [address] Sep, [facility] [place] [facility] [address] [id number] [place] [address] Sep, [facility] [place] [facility] [address] [id number] [place] [address] Sep, [facility] [place] [facility] [address] [id number] [place] [address] Sep, [facility] [place] [facility] [address] [id number] [place] [address] August, [facility] [place] [facility] [address] [id number] [place] [address] August, [facility] [place] [facility] [address] [id number] [place] [address] August, [facility] [place] [facility] [address] [id number] [place] [address] August, [facility] [place] [facility] [address] [id number] [place] [address] August, [facility] [place] [facility] [address] [id number] [place] [address] August, [facility] [place] [facility] [address] [id number] [place] [address] Jul, [facility] [place] [facility] [address] [id number] [place] [address] Jul, [facility] [place] [facility] [address] [id number] [place] [address] Jul, [facility] [place] [facility] [address] [id number] [place] [address] Jul, [facility] [place] [facility] [address] [id number] [place] [address] Jul, [facility] [place] [facility] [address] [id number] [place] [address] Jul, [facility] [place] [facility] [address] [id number] [place] [address] Jul, [facility] [place] [facility] [address] [id number] [place] [address] Jul, [facility] [place] [facility] [address] [id number] [place] [address] Jul, [facility] [place] [facility] [address] [id number] [place] [address] Jun, [facility] [place] [facility] [address] [id number] [place] [address] Jun, [facility] [place] [facility] [address] [id number] [place] [address] Jun, [facility] [place] [facility] [address] [id number] [place] [address] May, [facility] [place] [facility] [address] [id number] [place] [address] May, [facility] [place] [facility] [address] [id number] [place] [address]- [address] May, [facility] [place] [facility] [address] [id number] [place] [address]- [address] May, [facility] [place] [facility] [address] [id number] [place] [address] May, [facility] [place] [facility] [address] [id number] [place] [address] May, [facility] [place] [facility] [address] [id number] [place] [address] Apr, [facility] [address] [id number] [place] [address] Apr, [facility] [address] [id number] [place] [address] Apr, [facility] [address] [id number] [place] [address] Apr, [facility] [address] [id number] [place] [address] Apr, [facility] [address] [id number] [place] [address]- [address] Apr, [facility] [address] [id number] [place] [address]- [address] Apr, [facility] [address] [id number] [place] [address] Apr, [facility] [address] [id number] [place] [address]- [address] Apr, [facility] [address] [id number] [place] [address] Apr, [facility] [address] [id number] [place] [address] Mar, [facility] [address] [id number] [place] [address]- [address] Mar, [facility] [address] [id number] [place] [address] Mar, [facility] [address] [id number] [place] [address]- [address] Mar, [facility] [address] [id number] [place] [address]- [address] Mar, [facility] [address] [id number] [place] [address]- [address] Mar, [facility] [place] [facility] [address] [id number] [place] [address]- 39[address] Mar, [facility] [place] [facility] [address] [id number] [place] [address]- [address] Mar, [facility] [place] [facility] [address] [id number] [place] [address] Mar, [facility] [place] [facility] [address] [id number] [place] [address]- [address] Mar, [facility] [place] [facility] [address] [id number] [place] [address]- 3784 Mar, [facility] [place] [facility] [address] [id number] [place] [address] 1140 Feb, [facility] [place] [facility] [address] [id number] [place] [address] 1987 Feb, [facility] [place] [facility] [address] [id number], [place] [address] Feb, [facility] [place] [facility] [address] [id number] [place] [address] 6[address] Feb, [facility] [place] [facility] [address] [id number], [place] [address] Feb, [facility] [place] [facility] [address] [id number], [place] [address] Feb, [facility] [place] [facility] [address] [id number], [place] [address]- 2265 14 Feb, 2013 [facility] [place] [facility] [address] [id number], [place] [address] 3596 14 Feb, 2013 [facility] [place] [facility] [address] [id number], [place] [address] 3089 Feb, [facility] [place] [facility] [address] [id number][place] [address] 9[address] Feb, [facility] [place] [facility] [address] [id number], [place] [address] 2528 Feb, [facility] [place] [facility] [address] [id number] [place] [address] 9996 Feb, [facility] [place] [facility] [address] [id number] [place] [address]- 3431 Jan, [facility] [place] [facility] [address] [facility] [id number] [place] [address]- 2315 Jan, [facility] [place] [facility] [address] [id number] [place] [address]- 5445 Jan, [facility] [place] [facility] [address] [id number] [place] [address]- 4168 Jan, [facility] [place] [facility] [address] [id number] [place] [address]- 3846 Jan, [facility] [place] [facility] [address] [facility] [id number], [place] [address]- 0598 Jan, [facility] [place] [facility] [address] [id number] [place] [address]- 6098 Jan, [facility] [place] [facility] [address] [facility] [id number] [place] [address]- 8520 Jan, [facility] [place] [facility] [address] [facility] [id number], [place] [address]- 0410 Jan, [facility] [place] [facility] [address] [id number], [place] [address] 4[address] 27 Sep, 2012 [facility] [place] [facility] [address] [id number], [place] [address] 9298 18 Sep, 2012 [facility] [place] [facility] [address] [id number], [place] [address]- 7337 17 Sep, 2012 [facility] [place] [facility] [address] [facility] [id number] [place] [address] 11 Sep, 2012 [facility] [place] [facility] [address] [facility] [id number], [place] [address]- 7368 05 Sep, 2012 [facility] [place] [facility] [address] [id number] [place] [address] 4405 Nov, [facility] [place] [facility] [address] [id number] [place] [address]- 3698 Nov, [facility] [place] [facility] [address] [id number] [place] [address] 8110 Oct, [facility] [place] [facility] [address] [id number] [place] [address]- 6189 Oct, [facility] [place] [facility] [address] [id number] [place] [address]- 3818 Oct, [facility] [place] [facility] [address] [id number] [place] [address]- 0969 Oct, [facility] [place] [facility] [address] [id number] [place] [address]- 7422 Oct, [facility] [place] [facility] [address] [id number] [place] [address]- 1816 Oct, [facility] [place] [facility] [address] [id number] [place] [address]- 1779 Sep, [facility] [place] [facility] [address] [id number] [place] [address]- 0231 Sep, [facility] [place] [facility] [address] [id number] [place] [address]- 1836 Sep, [facility] [place] [facility] [address] [id number] [place] [address]- 1757 Sep, [facility] [place] [facility] [address] [id number] [place] [address]- 2140 14 Sep, 2012 [facility] [place] [facility] [address] [id number] [place] [address]- 4997 Sep, [facility] [place] [facility] [address] [id number] [place] [address]- 6512 Sep, [facility] [place] [facility] [address] [id number] [place] [address]- 5990 August, [facility] [address] [id number] [place] [address]- 9787 August, [facility] [address] [id number] [place] [address]- 7476 August, [facility] [address] [id number] [place] [address]- 0425 August, [facility] [address] [id number] [place] [address]- 0559 August, [facility] [address] [id number] [place] [address]- 5549 August, [facility] [address] [id number] [place] [address]- 1069 Jul, [facility] [address] [id number] [place] [address]- 5251 Jul, [facility] [address] [id number] [place] [address]- 6577 Jul, [facility] [address] [id number] [place] [address]- 4265 Jul, [facility] [address] [id number] [place] [address]- 6896 Jul, [facility] [address] [id number] [place] [address]- 8606 Jul, [facility] [place] [facility] [address] [id number], [place] [address]- 5282 Jun, [facility] [place] [facility] [address] [id number] [place] [address]- 3963 Jun, [facility] [place] [facility] [address] [id number] [place] [address]- 7744 18 Jun, 2012 [facility] [place] [facility] [address] [id number] [place] [address]- 2540 Jun, [facility] [address] [id number] [place] [address]- 2353 Jun, [facility] [address] [id number] [place] [address]- 3479 Jun, [facility] [address] [id number] [place] [address]- 0821 May, [facility] [address] [id number] [place] [address]- 3143 May, [facility] [address] [id number] [place] [address]- 3241 May, [facility] [address] [id number] [place] [address]- 7255 May, [facility] [address] [id number] [place] [address]- 1934 Apr, [facility] [address] [id number] [place] [address]- 8737 Apr, [facility] [address] [id number] [place] [address]- 8189 Apr, [facility] [address] [id number] [place] [address]- 8247 Apr, [facility] [address] [id number] [place] [address]- 6854 Apr, [facility] [address] [id number] [place] [address]- 2433 Apr, [facility] [address] [id number] [place] [address]- 8346 Apr, [facility] [address] [id number] [place] [address]- 4053 Apr, [facility] [address] [id number] [place] [address]- 1206 Apr, [facility] [address] [id number] [place] [address]47 Mar, [facility] [place] [facility] [address] [id number] [place] [address]- 0017 Mar, [facility] [place] [facility] [address] [id number] [place] [address]- 9897 Mar, [facility] [place] [facility] [address] [id number] [place] [address]- 0343 Mar, [facility] [place] [facility] [address] [id number] [place] [address]- 5003 Mar, [facility] [place] [facility] [address] [id number] [place] [address]- 7884 Mar, [facility] [place] [facility] [address] [id number] [place] [address]- 7284 Mar, [facility] [place] [facility] [address] [id number] [place] [address]- 7349 Mar, [facility] [place] [facility] [address] [id number] [place] [address]- 2165 Mar, [facility] [place] [facility] [address] [id number] [place] [address]- 9969 Mar, [facility] [place] [facility] [address] [facility] [id number], [place] [address]- 4833 Feb, [facility] [place] [facility] [address] [id number], [place] [address]- 8379 Feb, [facility] [place] [facility] [address] [id number], [place] [address]- 7842 Feb, [facility] [place] [facility] [address] [id number] [place] [address]- 2241 Feb, [facility] [place] [facility] [address] [id number], [place] [address]- 1351 15 Feb, 2012 [facility] [place] [facility] [address] [facility] [id number], [place] [address]- 3060 15 Feb, 2012 [facility] [place] [facility] [address] [id number], [place] [address]- 4581 14 Feb, 2012 [facility] [place] [facility] [address] [id number] [place] [address]- 0014 29 Jan, 2011 [facility] [place] [facility] [address] [facility] [id number], [place] [address]- 8143 29 Jan, 2012 [facility] [place] [facility] [address] [facility] [id number] [place] [address]- 5218 29 Jan, 2011 [facility] [place] [facility] [address] [facility] [id number] [place] [address]- 0664 29 Jan, 2012 [facility] [place] [facility] [address] [facility] [id number] [place] [address], [place] [address]- 5761 Jan, [facility] [place] [facility] [address] [facility] [id number] [place] [address]- 0336 Jan, [facility] [place] [facility] [id number], [place] [address]- 9539 Jan, [facility] [place] [facility] [address] [facility] [id number], [place] [address]- 5774 18 Jan, 2012 [facility] [place] [facility] [address] [id number], [place] [address]- 4994 18 Jan, 2012 [facility] [place] [facility] [address] [facility] [id number], [place] [address]- 5608 Jan, [facility] [place] [facility] [address] [facility] [id number], [place] [address]- 9001 27 Sep, 2011 [facility] [place] [facility] [address] [facility] [id number], [place] [address]- 8786 20 Sep, 2011 [facility] [place] [facility] [address] [facility] [id number], [place] [address]- 9845 17 Sep, 2011 [facility] [place] [facility] [address] [facility] [id number], [place] [address]- 9999 06 Sep, 2011 [facility] [place] [facility] [address] [id number], [place] [address]- 1445 05 Sep, 2011 [facility] [place] [facility] [address] [id number] [place] [address] 2542 Dec, [facility] [place] [facility] [address] [id number] [place] [address]- 3276 Nov, [facility] [place] [facility] [address] [id number] [place] [address] 2546 Nov, [facility] [place] [facility] [address] [id number] [place] [address]- 0616 Nov, [facility] [place] [facility] [address] [id number] [place] [address]- 1484 Nov, [facility] [place] [facility] [address] [id number] [place] [address]- 1380 Oct, [facility] [place] [facility] [address] [id number] [place] [address]- 7152 Oct, [facility] [place] [facility] [address] [id number] [place] [address]- 7700 Oct, [facility] [place] [facility] [address] [id number] [place] [address]- 6563 Oct, [facility] [place] [facility] [address] [id number] [place] [address]- 2818 Oct, [facility] [place] [facility] [address] [id number] [place] [address]- 4878 Oct, [facility] [place] [facility] [address] [id number] [place] [address]- 6542 Oct, [facility] [place] [facility] [address] [id number] [place] [address]- 254 Oct, [facility] [place] [facility] [address] [id number] [place] [address]- 7304 Sep, [facility] [place] [facility] [address] [id number] [place] [address]- 2546 Sep, [facility] [place] [facility] [address] [id number] [place] [address]- 3992 Sep, [facility] [address] [facility] [id number], [place] [address] 2546 Sep, [facility] [address] [facility] [id number], [place] [address]- 8216 August, [facility] [address] [id number], [place] [address] 2546 August, [facility] [address] [facility] [id number], [place] [address]- 2546 Jul, [facility] [address] [facility] [id number] [place] [address]- 1324 Jun, [facility] [id number], [place] [address]- 6676 Jun, [facility] [id number], [place] [address]- 7406 Jun, [facility] [id number], [place] [address]- 8546 Jun, [facility] [id number], [place] [address]- 9699 Jun, [facility] [id number], [place] [address]- 9867 Jun, [facility] [id number], [place] [address]- 7446 Jun, [facility] [address] [id number], [place] [address] 2546 Jun, [facility] [address] [id number], [place] [address]- 6626 May, [facility] [address] [id number], [place] [address]- 0606 May, [facility] [address] [id number], [place] [address]- 2546 Mar, IMMUNIZATIONS Vaccine Route Administration Date Status FLU Vaccine (History) IM Intramuscular Jan 18, 2017 Administered SOCIAL HISTORY Never Assessed REASON FOR VISIT Pain management (chronic)-- Jethro Harmon RN PLAN OF CARE Activity Details Follow Up 3 Months Reason: VITAL SIGNS Height 68 in 2017-01-18 Weight 200 lbs 2017-01-18 Temperature 97.0 degrees Fahrenheit 2017-01-18 Heart Rate 98 bpm 2017-01-18 Respiratory Rate 24 2017-01-18 BMI 30.41 kg/m2 2017-01-18 Blood pressure systolic 128 mmHg 2017-01-18 Blood pressure diastolic 78 mmHg 2017-01-18 MEDICATIONS Medication Instructions Dosage Frequency Start Date End Date Duration Status Glucosamine 1500 Complex - Orally Once a day 1 capsule 24h Active Excedrin Migraine 250-250-65 MG Orally daily PRN 1 tablet Active Incruse Ellipta 62.5 MCG/INH INHALE ONE PUFF BY MOUTH ONCE DAILY 30 Active Turmeric 500 MG Orally 2 times a day 1 capsule 12h Active Mens Multi Vitamin & Mineral Active Ibuprofen 200 mg Orally every 4 hrs 1 tablet as needed 4h Active Benazepril HCl 20 mg Orally Once a day 1 tablet 24h 90 days Active Cetirizine HCl 10 MG Orally Once a day 1 tablet 24h Active Omeprazole 20 MG TAKE ONE CAPSULE BY MOUTH ONCE DAILY 30 Active Baclofen 10 mg Orally 3 times a day 1 tablet 8h Active Lasix 20 mg Orally Once a day, PRN 1 tablet 30 Active Zolpidem Tartrate 5 MG TAKE ONE TABLET BY MOUTH ONCE DAILY NEEDED 30 Active Mucus Relief 400 MG TAKE ONE TABLET BY MOUTH EVERY 4 HOURS NEEDED WITH A FULL GLASS OF WATER 30 Active Breo Ellipta 100-25 MCG/INH INHALE ONE PUFF BY MOUTH ONCE DAILY 30 Active Calcium Carbonate-Vitamin D 600-200 MG-UNIT Orally twice a day 1 tablet with food 12h Active MS Contin 60 mg Orally every 12 hrs 1 tablet 12h Dec, 28 days Active Promethazine HCl 25 MG Orally every 12 hrs 1 tablet as needed 12h 30 Active Citalopram Hydrobromide 20 MG TAKE ONE TABLET BY MOUTH ONCE DAILY 30 Active Ventolin HFA 108 (90 Base) MCG/ACT Inhalation every 4 hrs 2 puffs as needed for SOB or wheeze 4h 30 days Active Oxygen 6 inhalations all the time Active Colace 100 MG Orally Once a day 1 capsule as needed 24h Active Hydrocodone-Acetaminophen 10-325 MG Orally every 4 hours 1 tablet 4h Dec 28 days Active RESULTS Name Result Date Reference Range [facility] 2017-01-18 Glucose, Serum 106 65-99 BUN 22 6-24 Creatinine, Serum 0.97 0.76-1.27 eGFR If NonAfricn Am 86 >59 eGFR If Africn Am 100 >59 BUN/Creatinine Ratio 23 9-20 Sodium, Serum 140 134-144 Potassium, Serum 4.8 3.5-5.2 Chloride, Serum 94 96-106 Carbon Dioxide, Total 30 18-29 Calcium, Serum 9.4 8.7-10.2 PROCEDURES Procedure Date Ordered Result Body Site LAB NOT BILLED BY [employer] Jan 18, 2017 [facility] VISIT ESTABLISHED PATIENT Jan 18, 2017 FLU Vaccine (History) Jan 18, 2017 VENIPUNCT, ROUTINE* Jan 18, 2017 SINGLE IMMUNIZATION ADMIN Jan 18, 2017 INSTRUCTIONS MEDICATIONS ADMINISTERED No Known Medications [...] pneumonia 2012 Hospitalization History COPD exacerbation, acute bronchitis-[facility] 06/10/16
--- OUTSIDE RECORDS SUMMARY | 2018-06-11 16:26 | XMS REPORT | Continuity of Care Document ---
Author Author [facility] Address Unknown Phone Unavailable Allergies Active Description Code Type Severity Reaction Onset Reported/Identified Relationship to Patient Clinical Status Yes aspirin [id number] Drug Allergy Unknown MEAN 06/10/2016 Yes carisoprodol [id number] Drug Allergy Unknown MEAN 06/10/2016 Yes codeine [id number] Drug Allergy Unknown MEAN 06/10/2016 Yes fentanyl [id number] Drug Allergy Unknown SOA 06/10/2016 Yes tramadol [id number] Drug Allergy Unknown FORGETFUL 06/10/2016 Medications There is no data. Problems Date Dx Coded Attending Type Code Diagnosis Diagnosed By 11/16/2010 Ot 530.81 ESOPHAGEAL REFLUX 11/16/2010 Ot 531.90 STOMACH ULCER NOS 11/16/2010 Ot 532.90 DUODENAL ULCER NOS 11/16/2010 Ot 575.11 CHRONIC CHOLECYSTITIS 11/16/2010 Ot V58.69 OTH MED,LT, CURRENT USE 06/23/2011 SARA CONROY MD 783.21 ABNORMAL WEIGHT LOSS 06/23/2011 SARA CONROY MD 783.21 ABNORMAL WEIGHT LOSS 06/23/2011 SARA CONROY MD 783.21 ABNORMAL WEIGHT LOSS 06/23/2011 KAROLINE COLLIER, RY Lechuga 783.21 ABNORMAL WEIGHT LOSS 06/23/2011 783.21 ABNORMAL WEIGHT LOSS 06/23/2011 SARA CONROY MD 783.21 ABNORMAL WEIGHT LOSS 06/23/2011 SARA CONROY MD 783.21 ABNORMAL WEIGHT LOSS 06/23/2011 SARA CONROY MD 783.21 ABNORMAL WEIGHT LOSS 06/23/2011 SARA CONROY MD 783.21 ABNORMAL WEIGHT LOSS 06/23/2011 SARA CONROY MD 783.21 ABNORMAL WEIGHT LOSS 06/23/2011 SARA CONROY MD 783.21 ABNORMAL WEIGHT LOSS 06/23/2011 SARA CONROY MD 783.21 ABNORMAL WEIGHT LOSS 06/23/2011 SARA CONROY MD 783.21 ABNORMAL WEIGHT LOSS 06/23/2011 SARA CONROY MD 783.21 ABNORMAL WEIGHT LOSS 06/23/2011 SARA CONROY MD 783.21 ABNORMAL WEIGHT LOSS 06/23/2011 JONO DAVILA CLARK Hussain 783.21 ABNORMAL WEIGHT LOSS 06/23/2011 SARA CONROY MD 783.21 ABNORMAL WEIGHT LOSS 06/23/2011 SARA CONROY MD 783.21 ABNORMAL WEIGHT LOSS 06/23/2011 SARA CONROY MD 783.21 ABNORMAL WEIGHT LOSS 09/18/2011 SARA CONROY MD 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) 09/18/2011 SARA CONROY MD CHRONIC AIRWAY OBSTRUCTION NOT ELSEWHERE CLASSIFIED 09/18/2011 SARA CONROY MD 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) 09/18/2011 SARA CONROY MD CHRONIC AIRWAY OBSTRUCTION NOT ELSEWHERE CLASSIFIED 09/18/2011 SARA CONROY MD 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) 09/18/2011 SARA CONROY MD CHRONIC AIRWAY OBSTRUCTION NOT ELSEWHERE CLASSIFIED 09/18/2011 RY RAMEY MD 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) 09/18/2011 RY RAMEY MD 49[place]ster CHRONIC AIRWAY OBSTRUCTION NOT ELSEWHERE CLASSIFIED 09/18/2011 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) 09/18/2011 496 CHRONIC AIRWAY OBSTRUCTION NOT ELSEWHERE CLASSIFIED 09/18/2011 SARA CONROY MD 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) 09/18/2011 SARA CONROY MD CHRONIC AIRWAY OBSTRUCTION NOT ELSEWHERE CLASSIFIED 09/18/2011 SARA CONROY MD 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) 09/18/2011 SARA CONROY MD CHRONIC AIRWAY OBSTRUCTION NOT ELSEWHERE CLASSIFIED 09/18/2011 SARA CONROY MD 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) 09/18/2011 SARA CONROY MD CHRONIC AIRWAY OBSTRUCTION NOT ELSEWHERE CLASSIFIED 09/18/2011 SARA CONROY MD 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) 09/18/2011 SARA CONROY MD CHRONIC AIRWAY OBSTRUCTION NOT ELSEWHERE CLASSIFIED 09/18/2011 SARA CONROY MD 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) 09/18/2011 SARA CONROY MD CHRONIC AIRWAY OBSTRUCTION NOT ELSEWHERE CLASSIFIED 09/18/2011 SARA CONROY MD 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) 09/18/2011 SARA CONROY MD CHRONIC AIRWAY OBSTRUCTION NOT ELSEWHERE CLASSIFIED 09/18/2011 SARA CONROY MD 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) 09/18/2011 SARA CONROY MD CHRONIC AIRWAY OBSTRUCTION NOT ELSEWHERE CLASSIFIED 09/18/2011 SARA CONROY MD 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) 09/18/2011 SARA CONROY MD CHRONIC AIRWAY OBSTRUCTION NOT ELSEWHERE CLASSIFIED 09/18/2011 SARA CONROY MD 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) 09/18/2011 SARA CONROY MD CHRONIC AIRWAY OBSTRUCTION NOT ELSEWHERE CLASSIFIED 09/18/2011 SARA CONROY MD 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) 09/18/2011 SARA CONROY MD CHRONIC AIRWAY OBSTRUCTION NOT ELSEWHERE CLASSIFIED 09/18/2011 CLARK DE LA CRUZ DO 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) 09/18/2011 CLARK DE LA CRUZ DO 49[place] CHRONIC AIRWAY OBSTRUCTION NOT ELSEWHERE CLASSIFIED 09/18/2011 SARA CONROY MD 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) 09/18/2011 SARA CONROY MD CHRONIC AIRWAY OBSTRUCTION NOT ELSEWHERE CLASSIFIED 09/18/2011 SARA CONROY MD 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) 09/18/2011 SARA CONROY MD CHRONIC AIRWAY OBSTRUCTION NOT ELSEWHERE CLASSIFIED 09/18/2011 SARA CONROY MD 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) 09/18/2011 SARA CONROY MD CHRONIC AIRWAY OBSTRUCTION NOT ELSEWHERE CLASSIFIED 10/16/2011 SARA CONROY MD 338.29 OTHER CHRONIC PAIN 10/16/2011 SARA CONROY MD [place].8 DYSPEPSIA AND OTHER SPECIFIED DISORDERS OF FUNCTION OF STOMACH 10/16/2011 SARA CONROY MD 338.29 OTHER CHRONIC PAIN 10/16/2011 SARA CONROY MD 53[place]ster.8 DYSPEPSIA AND OTHER SPECIFIED DISORDERS OF FUNCTION OF STOMACH 10/16/2011 SARA CONROY MD 338.29 OTHER CHRONIC PAIN 10/16/2011 SARA CONROY MD 536.8 DYSPEPSIA AND OTHER SPECIFIED DISORDERS OF FUNCTION OF STOMACH 10/16/2011 RY RAMEY MD 338.29 OTHER CHRONIC PAIN 10/16/2011 RY RAMEY MD 536.8 DYSPEPSIA AND OTHER SPECIFIED DISORDERS OF FUNCTION OF STOMACH 10/16/2011 338.29 OTHER CHRONIC PAIN 10/16/2011 536.8 DYSPEPSIA AND OTHER SPECIFIED DISORDERS OF FUNCTION OF STOMACH 10/16/2011 SARA CONROY MD 338.29 OTHER CHRONIC PAIN 10/16/2011 SARA CONROY MD.8 DYSPEPSIA AND OTHER SPECIFIED DISORDERS OF FUNCTION OF STOMACH 10/16/2011 SARA CONROY MD 338.29 OTHER CHRONIC PAIN 10/16/2011 SARA CONROY MD.8 DYSPEPSIA AND OTHER SPECIFIED DISORDERS OF FUNCTION OF STOMACH 10/16/2011 SARA CONROY MD 338.29 OTHER CHRONIC PAIN 10/16/2011 SARA CONROY MD6.8 DYSPEPSIA AND OTHER SPECIFIED DISORDERS OF FUNCTION OF STOMACH 10/16/2011 SARA CONROY MD 338.29 OTHER CHRONIC PAIN 10/16/2011 SARA CONROY MD6.8 DYSPEPSIA AND OTHER SPECIFIED DISORDERS OF FUNCTION OF STOMACH 10/16/2011 SARA CONROY MD 338.29 OTHER CHRONIC PAIN 10/16/2011 SARA CONROY MD6.8 DYSPEPSIA AND OTHER SPECIFIED DISORDERS OF FUNCTION OF STOMACH 10/16/2011 SARA CONROY MD 338.29 OTHER CHRONIC PAIN 10/16/2011 SARA CONROY MD.8 DYSPEPSIA AND OTHER SPECIFIED DISORDERS OF FUNCTION OF STOMACH 10/16/2011 SARA CONROY MD 338.29 OTHER CHRONIC PAIN 10/16/2011 SARA CONROY MD6.8 DYSPEPSIA AND OTHER SPECIFIED DISORDERS OF FUNCTION OF STOMACH 10/16/2011 SARA CONROY MD 338.29 OTHER CHRONIC PAIN 10/16/2011 SARA CONROY MD6.8 DYSPEPSIA AND OTHER SPECIFIED DISORDERS OF FUNCTION OF STOMACH 10/16/2011 SARA CONROY MD 338.29 OTHER CHRONIC PAIN 10/16/2011 SARA CONROY MD6.8 DYSPEPSIA AND OTHER SPECIFIED DISORDERS OF FUNCTION OF STOMACH 10/16/2011 SARA CONROY MD 338.29 OTHER CHRONIC PAIN 10/16/2011 SARA CONROY MD 536.8 DYSPEPSIA AND OTHER SPECIFIED DISORDERS OF FUNCTION OF STOMACH 10/16/2011 DE LA CRUZ CLARK DAVILA K 338.29 OTHER CHRONIC PAIN 10/16/2011 [place] CRUZ CLARK DAVILA K 536.8 DYSPEPSIA AND OTHER SPECIFIED DISORDERS OF FUNCTION OF STOMACH 10/16/2011 SARA CONROY MD 338.29 OTHER CHRONIC PAIN 10/16/2011 SARA CONROY MD 536.8 DYSPEPSIA AND OTHER SPECIFIED DISORDERS OF FUNCTION OF STOMACH 10/16/2011 SARA CONROY MD 338.29 OTHER CHRONIC PAIN 10/16/2011 SARA CONROY MD 536.8 DYSPEPSIA AND OTHER SPECIFIED DISORDERS OF FUNCTION OF STOMACH 10/16/2011 SARA CONROY MD 338.29 OTHER CHRONIC PAIN 10/16/2011 SARA CONROY MD 536.8 DYSPEPSIA AND OTHER SPECIFIED DISORDERS OF FUNCTION OF STOMACH 01/04/2012 SARA CONROY MD V03.82 PPV23 (PNEUMOVAX) DX 01/04/2012 SARA CONROY MD V04.81 FLU DX (MEDICARE ONLY) 01/04/2012 SARA CONROY MD V03.82 Ppv23 (pneumovax) Dx 01/04/2012 SARA CONROY MD V04.81 Flu Dx (medicare Only) 01/04/2012 SARA CONROY MD V03.82 Ppv23 (pneumovax) Dx 01/04/2012 SARA CONROY MD V04.81 Flu Dx (medicare Only) 01/04/2012 RY RAMEY MD V03.82 Ppv23 (pneumovax) Dx 01/04/2012 RY RAMEY MD V04.81 Flu Dx (medicare Only) 01/04/2012 V03.82 Ppv23 ( pneumovax) Dx 01/04/2012 V04.81 Flu Dx ( medicare Only) 01/04/2012 SARA CONROY MD V03.82 Ppv23 (pneumovax) Dx 01/04/2012 SARA CONROY MD V04.81 Flu Dx (medicare Only) 01/04/2012 SARA CONROY MD V03.82 Ppv23 (pneumovax) Dx 01/04/2012 SARA CONROY MD V04.81 Flu Dx (medicare Only) 01/04/2012 RAFIQ COLLIER, SARA V03.82 Ppv23 (pneumovax) Dx 01/04/2012 RAFIQ COLLIER, SARA V04.81 Flu Dx (medicare Only) 01/04/2012 RAFIQ COLLIER, SARA V03.82 Ppv23 (pneumovax) Dx 01/04/2012 RAFIQ COLLIER, SARA V04.81 Flu Dx (medicare Only) 01/04/2012 RAFIQ COLLIER, SARA V03.82 Ppv23 (pneumovax) Dx 01/04/2012 RAFIQ COLLIER, SARA V04.81 Flu Dx (medicare Only) 01/04/2012 RAFIQ COLLIER, SARA V03.82 Ppv23 (pneumovax) Dx 01/04/2012 RAFIQ COLLIER, SARA V04.81 Flu Dx (medicare Only) 01/04/2012 RAFIQ COLLIER, SARA V03.82 Ppv23 (pneumovax) Dx 01/04/2012 RAFIQ COLLIER, SARA V04.81 Flu Dx (medicare Only) 01/04/2012 RAFIQ COLLIER, SARA V03.82 Ppv23 (pneumovax) Dx 01/04/2012 RAFIQ COLLIER, SARA V04.81 Flu Dx (medicare Only) 01/04/2012 RAFIQ COLLIER, SARA V03.82 Ppv23 (pneumovax) Dx 01/04/2012 RAFIQ COLLIER, SARA V04.81 Flu Dx (medicare Only) 01/04/2012 RAFIQ COLLIER, SARA V03.82 Ppv23 (pneumovax) Dx 01/04/2012 RAFIQ COLLIER, SARA V04.81 Flu Dx (medicare Only) 01/04/2012 DE LA CRUZ DO, CLARK Nixon V03.82 Ppv23 (pneumovax) Dx 01/04/2012 DE LA CRUZ DO, CLARK K V04.81 Flu Dx (medicare Only) 01/04/2012 RAFIQ COLLIER, SARA V03.82 Ppv23 (pneumovax) Dx 01/04/2012 RAFIQ COLLIER, SARA V04.81 Flu Dx (medicare Only) 01/04/2012 RAFIQ COLLIER, SARA V03.82 Ppv23 (pneumovax) Dx 01/04/2012 RAFIQ COLLIER, SARA V04.81 Flu Dx (medicare Only) 01/04/2012 HUSARA PERALES MD V03.82 PPV23 (PNEUMOVAX) DX 01/04/2012 SARA CONROY MD V04.81 FLU DX (MEDICARE ONLY) 02/26/2012 SARA CONROY MD DEPRESSIVE DISORDER NOT ELSEWHERE CLASSIFIED 02/26/2012 SARA CONROY MD DEPRESSIVE DISORDER NOT ELSEWHERE CLASSIFIED 02/26/2012 SARA CONROY MD DEPRESSIVE DISORDER NOT ELSEWHERE CLASSIFIED 02/26/2012 RY RAMEY MD 311 DEPRESSIVE DISORDER NOT ELSEWHERE CLASSIFIED 02/26/2012 311 DEPRESSIVE DISORDER NOT ELSEWHERE CLASSIFIED 02/26/2012 SARA CONROY MD DEPRESSIVE DISORDER NOT ELSEWHERE CLASSIFIED 02/26/2012 SARA CONROY MD DEPRESSIVE DISORDER NOT ELSEWHERE CLASSIFIED 02/26/2012 SARA CONROY MD DEPRESSIVE DISORDER NOT ELSEWHERE CLASSIFIED 02/26/2012 SARA CONROY MD DEPRESSIVE DISORDER NOT ELSEWHERE CLASSIFIED 02/26/2012 SARA CONROY MD DEPRESSIVE DISORDER NOT ELSEWHERE CLASSIFIED 02/26/2012 SARA CONROY MD DEPRESSIVE DISORDER NOT ELSEWHERE CLASSIFIED 02/26/2012 SARA CONROY MD DEPRESSIVE DISORDER NOT ELSEWHERE CLASSIFIED 02/26/2012 SARA CONROY MD DEPRESSIVE DISORDER NOT ELSEWHERE CLASSIFIED 02/26/2012 SARA CONROY MD DEPRESSIVE DISORDER NOT ELSEWHERE CLASSIFIED 02/26/2012 SARA CONROY MD DEPRESSIVE DISORDER NOT ELSEWHERE CLASSIFIED 02/26/2012 CLARK DE LA CRUZ DO 311 DEPRESSIVE DISORDER NOT ELSEWHERE CLASSIFIED 02/26/2012 SARA CONROY MD DEPRESSIVE DISORDER NOT ELSEWHERE CLASSIFIED 02/26/2012 SARA CONROY MD DEPRESSIVE DISORDER NOT ELSEWHERE CLASSIFIED 02/26/2012 SARA CONROY MD DEPRESSIVE DISORDER NOT ELSEWHERE CLASSIFIED 04/01/2012 SARA CONROY MD 578.1 HEMATOCHEZIA 04/01/2012 SARA CONROY MD 578.1 Hematochezia 04/01/2012 SARA CONROY MD 578.1 Hematochezia 04/01/2012 RY RAMEY MD 578.1 Hematochezia 04/01/2012 578.1 Hematochezia 04/01/2012 SARA CONROY MD 578.1 Hematochezia 04/01/2012 SARA CONROY MD 578.1 Hematochezia 04/01/2012 SARA CONROY MD 578.1 Hematochezia 04/01/2012 SARA CONROY MD 578.1 Hematochezia 04/01/2012 RAFIQ COLLIER, SARA 578.1 Hematochezia 04/01/2012 SARA CONROY MD 578.1 Hematochezia 04/01/2012 RAFIQ COLLIER, SARA 578.1 Hematochezia 04/01/2012 RAFIQ COLLIER, SARA 578.1 Hematochezia 04/01/2012 RAFIQ COLLIER, SARA 578.1 Hematochezia 04/01/2012 RAFIQ COLLIER, SARA 578.1 Hematochezia 04/01/2012 CLARK DE LA CRUZ DO 578.1 Hematochezia 04/01/2012 RAFIQ COLLIER, SARA Lindo8.1 Hematochezia 04/01/2012 SARA CONROY MD 578.1 Hematochezia 04/01/2012 SARA CONROY MD 578.1 HEMATOCHEZIA 05/20/2012 SARA CONROY MD 487.1 INFLUENZA WITH OTHER RESPIRATORY MANIFESTATIONS 05/20/2012 KAROLINE COLLIER, RY Lechuga 487.1 INFLUENZA WITH OTHER RESPIRATORY MANIFESTATIONS 05/20/2012 487.1 INFLUENZA WITH OTHER RESPIRATORY MANIFESTATIONS 05/20/2012 SARA CONROY MD7.1 INFLUENZA WITH OTHER RESPIRATORY MANIFESTATIONS 05/20/2012 SARA CONROY MD7.1 INFLUENZA WITH OTHER RESPIRATORY MANIFESTATIONS 05/20/2012 SARA CONROY MD 487.1 INFLUENZA WITH OTHER RESPIRATORY MANIFESTATIONS 05/20/2012 SARA CONROY MD 487.1 INFLUENZA WITH OTHER RESPIRATORY MANIFESTATIONS 05/20/2012 SARA CONROY MD 487.1 INFLUENZA WITH OTHER RESPIRATORY MANIFESTATIONS 05/20/2012 SARA CONROY MD 487.1 INFLUENZA WITH OTHER RESPIRATORY MANIFESTATIONS 05/20/2012 SARA CONROY MD 487.1 INFLUENZA WITH OTHER RESPIRATORY MANIFESTATIONS 05/20/2012 SARA CONROY MD7.1 INFLUENZA WITH OTHER RESPIRATORY MANIFESTATIONS 05/20/2012 SARA CONROY MD7.1 INFLUENZA WITH OTHER RESPIRATORY MANIFESTATIONS 05/20/2012 SARA CONROY MD 487.1 INFLUENZA WITH OTHER RESPIRATORY MANIFESTATIONS 05/20/2012 DE LA CRUZ DO, CLARK K 487.1 INFLUENZA WITH OTHER RESPIRATORY MANIFESTATIONS 05/20/2012 SARA CONROY MD7.1 INFLUENZA WITH OTHER RESPIRATORY MANIFESTATIONS 05/20/2012 SARA CONROY MD 487.1 INFLUENZA WITH OTHER RESPIRATORY MANIFESTATIONS 05/27/2012 Ot 569.3 RECTAL ANAL HEMORRHAGE 06/17/2012 Ot 496 CHR AIRWAY OBSTRUCT NEC 10/03/2012 530.11 REFLUX ESOPHAGITIS 10/03/2012 RAFIQ COLLIER, SARA 530.11 REFLUX ESOPHAGITIS 10/03/2012 RAFIQ COLLIER, SARA 530.11 REFLUX ESOPHAGITIS 10/03/2012 RAFIQ COLLIER, SARA 530.11 REFLUX ESOPHAGITIS 10/03/2012 RAFIQ COLLIER, SARA 530.11 REFLUX ESOPHAGITIS 10/03/2012 RAFIQ COLLIER, SARA 530.11 REFLUX ESOPHAGITIS 10/03/2012 RAFIQ COLLIER, SARA 530.11 REFLUX ESOPHAGITIS 10/03/2012 RAFIQ COLLIER, SARA 530.11 REFLUX ESOPHAGITIS 10/03/2012 RAFIQ COLLIER, SARA 530.11 REFLUX ESOPHAGITIS 10/03/2012 RAFIQ COLLIER, SARA 530.11 REFLUX ESOPHAGITIS 10/03/2012 RAFIQ COLLIER, SARA 530.11 REFLUX ESOPHAGITIS 10/03/2012 CLARK DE LA CRUZ DO 530.11 REFLUX ESOPHAGITIS 10/03/2012 SARA CONROY MD 530.11 REFLUX ESOPHAGITIS 10/03/2012 RAFIQ COLLIER, SARA 530.11 REFLUX ESOPHAGITIS 02/14/2013 SARA CONROY MD 333.1 ESSENTIAL AND OTHER SPECIFIED FORMS OF TREMOR 02/14/2013 SARA CONROY MD 333.1 ESSENTIAL AND OTHER SPECIFIED FORMS OF TREMOR 02/14/2013 SARA CONROY MD 333.1 ESSENTIAL AND OTHER SPECIFIED FORMS OF TREMOR 02/14/2013 SARA CONROY MD 333.1 ESSENTIAL AND OTHER SPECIFIED FORMS OF TREMOR 02/14/2013 SARA CONROY MD 333.1 ESSENTIAL AND OTHER SPECIFIED FORMS OF TREMOR 02/14/2013 SARA CONROY MD 333.1 ESSENTIAL AND OTHER SPECIFIED FORMS OF TREMOR 02/14/2013 SARA CONROY MD 333.1 ESSENTIAL AND OTHER SPECIFIED FORMS OF TREMOR 02/14/2013 SARA CONROY MD 333.1 ESSENTIAL AND OTHER SPECIFIED FORMS OF TREMOR 02/14/2013 SARA CONROY MD 333.1 ESSENTIAL AND OTHER SPECIFIED FORMS OF TREMOR 02/14/2013 CLARK DE LA CRUZ DO 333.1 ESSENTIAL AND OTHER SPECIFIED FORMS OF TREMOR 02/14/2013 SARA CONROY MD 333.1 ESSENTIAL AND OTHER SPECIFIED FORMS OF TREMOR 02/14/2013 SARA CONROY MD 333.1 ESSENTIAL AND OTHER SPECIFIED FORMS OF TREMOR 04/17/2013 SARA CONROY MD Ot 038.9 SEPTICEMIA NOS 04/17/2013 SARA CONROY MD Ot 338.29 OTHER CHRONIC PAIN 04/17/2013 SARA CONROY MD Ot 401.9 HYPERTENSION NOS 04/17/2013 SARA CONROY MD Ot 482.1 PSEUDOMONAL PNEUMONIA 04/17/2013 SARA CONROY MD Ot 482.83 PNEUMONIA DUE TO OTHER GRAM-NEGATIVE CASEY 04/17/2013 SARA CONROY MD Ot 491.21 OBSTR CHRONIC BRONCHITIS, W (ACUTE) EXAC 04/17/2013 SARA CONROY MD Ot 507.0 FOOD/VOMIT PNEUMONITIS 04/17/2013 SARA CONROY MD Ot 518.0 PULMONARY COLLAPSE 04/17/2013 SARA CONROY MD Ot 530.81 ESOPHAGEAL REFLUX 04/17/2013 SARA CONROY MD Ot 995.91 SEPSIS 04/17/2013 SARA CONROY MD Ot V12.51 HX-VENOUS THROMBOSIS EMBOLISM 04/17/2013 SARA CONROY MD Ot V15.82 HISTORY OF TOBACCO USE 04/17/2013 SARA CONROY MD Ot V46.2 SUPPLEMENTAL OXYGEN 09/30/2013 SARA CONROY MD 787.20 DYSPHAGIA UNSPECIFIED 09/30/2013 SARA CONROY MD 787.20 DYSPHAGIA UNSPECIFIED 09/30/2013 CLARK DE LA CRUZ DO 787.20 DYSPHAGIA UNSPECIFIED 09/30/2013 SARA CONROY MD 787.20 DYSPHAGIA UNSPECIFIED 09/30/2013 SARA CONROY MD 787.20 DYSPHAGIA UNSPECIFIED 01/22/2014 SARA CONROY MD 401.1 BENIGN ESSENTIAL HYPERTENSION 01/22/2014 SARA CONROY MD 716.90 UNSPECIFIED ARTHROPATHY SITE UNSPECIFIED 01/22/2014 CLARK DE LA CRUZ DO 401.1 BENIGN ESSENTIAL HYPERTENSION 01/22/2014 CLARK DE LA CRUZ DO 716.90 UNSPECIFIED ARTHROPATHY SITE UNSPECIFIED 01/22/2014 SARA CONROY MD 401.1 BENIGN ESSENTIAL HYPERTENSION 01/22/2014 SARA CONROY MD6.90 UNSPECIFIED ARTHROPATHY SITE UNSPECIFIED 01/22/2014 RAFIQ COLLIER, SARA 401.1 BENIGN ESSENTIAL HYPERTENSION 01/22/2014 RAFIQ COLLIER, SARA 716.90 UNSPECIFIED ARTHROPATHY SITE UNSPECIFIED 02/05/2014 CLARK DE LA CRUZ DO V04.81 FLU SHOT 02/05/2014 SAAR CONROY MD V04.81 FLU SHOT 02/05/2014 SARA CONROY MD V04.81 FLU SHOT 06/26/2014 RAFIQ COLLIER, SARA 719.41 PAIN IN JOINT INVOLVING SHOULDER REGION 02/20/2016 Ot 721.0 CERVICAL SPONDYLOSIS 02/20/2016 Ot 721.0 CERVICAL SPONDYLOSIS 02/20/2016 Ot 496 CHR AIRWAY OBSTRUCT NEC 02/20/2016 Ot 783.21 LOSS OF WEIGHT 02/20/2016 Ot 787.91 DIARRHEA 02/20/2016 Ot V72.84 EXAM PRE- OPERATIVE NOS 02/20/2016 Ot 496 CHR AIRWAY OBSTRUCT NEC 02/20/2016 SARA CONROY MD Ot 338.29 OTHER CHRONIC PAIN 02/20/2016 SARA CONROY MD Ot 496 CHR AIRWAY OBSTRUCT NEC 02/20/2016 SARA CONROY MD Ot V58.65 LONG-TERM(CURRENT)USE OF STEROIDS 02/20/2016 JOSUE BACA MD Ot J44.9 CHRONIC OBSTRUCTIVE PULMONARY DISEASE, U 02/20/2016 JOSUE BACA MD Ot R11.10 VOMITING, UNSPECIFIED 02/20/2016 JOSUE BACA MD Ot R50.9 FEVER, UNSPECIFIED 02/20/2016 JOSUE BACA MD Ot R51 HEADACHE 02/20/2016 JOSUE BACA MD Ot Z79.899 OTHER MANAGER ENTERPRISE CONTENT MANAGEMENT (CURRENT) DRUG THERAPY 02/22/2016 JOSUE BACA MD Ot J44.9 CHRONIC OBSTRUCTIVE PULMONARY DISEASE, U 02/22/2016 JOSUE BACA MD Ot R11.10 VOMITING, UNSPECIFIED 02/22/2016 JOSUE BACA MD Ot R50.9 FEVER, UNSPECIFIED 02/22/2016 JOSUE BACA MD Ot R51 HEADACHE 02/22/2016 JOSUE BACA MD Ot Z79.899 OTHER PENITENTIARY (CURRENT) DRUG THERAPY 06/10/2016 Ot 496 CHR AIRWAY OBSTRUCT NEC 06/16/2016 BRAIN BRUCE MD Ot A41.9 SEPSIS, UNSPECIFIED ORGANISM 06/16/2016 BRAIN BRUCE MD Ot E03.9 HYPOTHYROIDISM, UNSPECIFIED 06/16/2016 BRAIN BRUCE MD Ot E87.70 FLUID OVERLOAD, UNSPECIFIED 06/16/2016 BRAIN BRUCE MD Ot G89.29 OTHER CHRONIC PAIN 06/16/2016 BRAIN BRUCE MD Ot I10 ESSENTIAL (PRIMARY) HYPERTENSION 06/16/2016 BRAIN BRUCE MD Ot J18.9 PNEUMONIA, UNSPECIFIED ORGANISM 06/16/2016 BRAIN BRUCE MD Ot J20.9 ACUTE BRONCHITIS, UNSPECIFIED 06/16/2016 BRAIN BRUCE MD, Ot J44.0 CHRONIC OBSTRUCTIVE PULMON DISEASE W ACU 06/16/2016 BRAIN BRUCE MD, Ot J44.1 CHRONIC OBSTRUCTIVE PULMONARY DISEASE W 06/16/2016 BRAIN BRUCE MD Ot J96.20 ACUTE AND CHR RESP FAILURE, UNSP W HYPOX 06/16/2016 BRAIN BRUCE MD Ot M19.90 UNSPECIFIED OSTEOARTHRITIS, UNSPECIFIED 06/16/2016 BRAIN BRUCE MD, Ot M54.9 DORSALGIA, UNSPECIFIED 06/16/2016 BRAIN BRUCE MD, Ot Q05.9 SPINA BIFIDA, UNSPECIFIED 06/16/2016 BRAIN BRUCE MD Ot Z87.891 PERSONAL HISTORY OF NICOTINE DEPENDENCE 06/16/2016 BRAIN BRUCE MD Ot Z99.81 DEPENDENCE ON SUPPLEMENTAL OXYGEN 01/17/2017 Ot 783.21 LOSS OF WEIGHT 01/17/2017 Ot 787.91 DIARRHEA 01/17/2017 Ot V72.84 EXAM PRE- OPERATIVE NOS 01/17/2017 Ot 496 CHR AIRWAY OBSTRUCT NEC 01/17/2017 SARA CONROY MD Ot 338.29 OTHER CHRONIC PAIN 01/17/2017 SARA CONROY MD Ot 496 CHR AIRWAY OBSTRUCT NEC 01/17/2017 SARA CONROY MD Ot V58.65 LONG-TERM(CURRENT)USE OF STEROIDS 02/20/2017 Roderick Patton 491.20 OBSTRUCTIVE CHRONIC BRONCHITIS, WITHOUT EXACERBATION 02/20/2017 Roderick Patton J44.9 CHRONIC OBSTRUCTIVE PULMONARY DISEASE, UNSPECIFIED 02/23/2017 Roderick Patton W 496 CHRONIC AIRWAY OBSTRUCTION, NOT ELSEWHERE CLASSIFIED 02/23/2017 Abdi Roderick W J44.9 CHRONIC OBSTRUCTIVE PULMONARY DISEASE, UNSPECIFIED 02/23/2017 Paul Pattonlas W 401.9 UNSPECIFIED ESSENTIAL HYPERTENSION 02/23/2017 Roderick Patton W 496 CHRONIC AIRWAY OBSTRUCTION, NOT ELSEWHERE CLASSIFIED 02/23/2017 AbdiRoderick W I10 ESSENTIAL (PRIMARY) HYPERTENSION 02/23/2017 Roderick Patton W J44.9 CHRONIC OBSTRUCTIVE PULMONARY DISEASE, UNSPECIFIED 02/23/2017 AbdiPaulRoderick W 401.9 UNSPECIFIED ESSENTIAL HYPERTENSION 02/23/2017 Roderick Patton W 496 CHRONIC AIRWAY OBSTRUCTION, NOT ELSEWHERE CLASSIFIED 02/23/2017 Paul Pattonlas W 733.0 OSTEOPOROSIS 02/23/2017 Roderick Patton W I10 ESSENTIAL (PRIMARY) HYPERTENSION 02/23/2017 AbdiPaulRoderick W J44.9 CHRONIC OBSTRUCTIVE PULMONARY DISEASE, UNSPECIFIED 02/23/2017 Paul Pattonlas W M81.0 AGE-RELATED OSTEOPOROSIS WITHOUT CURRENT PATHOLOGICAL FRACTURE 02/24/2017 Abdi Roderick W 401.9 UNSPECIFIED ESSENTIAL HYPERTENSION 02/24/2017 Roderick Patton W 496 CHRONIC AIRWAY OBSTRUCTION, NOT ELSEWHERE CLASSIFIED 02/24/2017 AbdiPaulRoderick W 733.0 OSTEOPOROSIS 02/24/2017 AbdiPaulRoderick W I10 ESSENTIAL (PRIMARY) HYPERTENSION 02/24/2017 AbdiPaulRoderick W J44.9 CHRONIC OBSTRUCTIVE PULMONARY DISEASE, UNSPECIFIED 02/24/2017 Roderick Patton W M81.0 AGE-RELATED OSTEOPOROSIS WITHOUT CURRENT PATHOLOGICAL FRACTURE 03/07/2017 NIKHIL WEIR VIRTUAL OFFICE ASSISTANT Ot J30.2 OTHER SEASONAL ALLERGIC RHINITIS 03/07/2017 NIKHIL WEIR VIRTUAL OFFICE ASSISTANT Ot J44.9 CHRONIC OBSTRUCTIVE PULMONARY DISEASE, U 03/07/2017 NIKHIL WEIR VIRTUAL OFFICE ASSISTANT Ot J96.20 ACUTE AND CHR RESP FAILURE, UNSP W HYPOX 03/27/2017 NIKHIL WEIR VIRTUAL OFFICE ASSISTANT Ot J30.2 OTHER SEASONAL ALLERGIC RHINITIS 03/27/2017 NIKHIL WEIR VIRTUAL OFFICE ASSISTANT Ot J44.9 CHRONIC OBSTRUCTIVE PULMONARY DISEASE, U 03/27/2017 NIKHIL WEIR VIRTUAL OFFICE ASSISTANT Ot J96.20 ACUTE AND CHR RESP FAILURE, UNSP W HYPOX 06/20/2017 Brown, Roderick W 401.9 UNSPECIFIED ESSENTIAL HYPERTENSION 06/20/2017 Roderick Patton A 496 CHRONIC AIRWAY OBSTRUCTION, NOT ELSEWHERE CLASSIFIED 06/20/2017 Roderick Patton W 733.0 OSTEOPOROSIS 06/20/2017 Roderick Patton W I10 ESSENTIAL (PRIMARY) HYPERTENSION 06/20/2017 Roderick Patton A J44.9 CHRONIC OBSTRUCTIVE PULMONARY DISEASE, UNSPECIFIED 06/20/2017 Roderick Patton W M81.0 AGE-RELATED OSTEOPOROSIS WITHOUT CURRENT PATHOLOGICAL FRACTURE 08/17/2017 RAFIQ COLLIER, SARA Medina Ot Z87.891 PERSONAL HISTORY OF NICOTINE DEPENDENCE 08/17/2017 Ot V72.84 EXAM PRE- OPERATIVE NOS 08/17/2017 Ot 496 CHR AIRWAY OBSTRUCT NEC 08/17/2017 SARA CONROY MD Ot 338.29 OTHER CHRONIC PAIN 08/17/2017 SARA CONROY MD Ot 496 CHR AIRWAY OBSTRUCT NEC 08/17/2017 SARA CONROY MD Ot V58.65 LONG-TERM(CURRENT)USE OF STEROIDS 08/17/2017 NIKHIL WEIR APRN Ot J30.2 OTHER SEASONAL ALLERGIC RHINITIS 08/17/2017 NIKHIL WEIR APRN Ot J44.9 CHRONIC OBSTRUCTIVE PULMONARY DISEASE, U 08/17/2017 NIKHIL WEIR APRN Ot J96.20 ACUTE AND CHR RESP FAILURE, UNSP W HYPOX 08/17/2017 SARA CONROY MD Ot Z87.891 PERSONAL HISTORY OF NICOTINE DEPENDENCE 08/21/2017 SARA CONROY MD, Ot J18.9 PNEUMONIA, UNSPECIFIED ORGANISM 08/21/2017 SARA CONROY MD Ot J43.9 EMPHYSEMA, UNSPECIFIED 08/21/2017 SARA CONROY MD Ot L13.9 BULLOUS DISORDER, UNSPECIFIED 08/21/2017 SARA CONROY MD Ot Z87.891 PERSONAL HISTORY OF NICOTINE DEPENDENCE 09/11/2017 SARA CONROY MD, Ot J18.9 PNEUMONIA, UNSPECIFIED ORGANISM 09/11/2017 SARA CONROY MD Ot J43.9 EMPHYSEMA, UNSPECIFIED 09/11/2017 SARA CONROY MD Ot L13.9 BULLOUS DISORDER, UNSPECIFIED 09/11/2017 SARA CONROY MD Ot Z87.891 PERSONAL HISTORY OF NICOTINE DEPENDENCE 06/11/2018 SARA CONROY MD Ot 338.29 OTHER CHRONIC PAIN 06/11/2018 SARA CONROY MD Ot 496 CHR AIRWAY OBSTRUCT NEC 06/11/2018 SARA CONROY MD Ot V58.65 LONG-TERM(CURRENT)USE OF STEROIDS 06/11/2018 NIKHIL WEIR APRN Ot J30.2 OTHER SEASONAL ALLERGIC RHINITIS 06/11/2018 NIKHIL WEIR APRN Ot J44.9 CHRONIC OBSTRUCTIVE PULMONARY DISEASE, U 06/11/2018 NIKHIL WEIR APRN Ot J96.20 ACUTE AND CHR RESP FAILURE, UNSP W HYPOX 06/11/2018 SARA CONROY MD Ot J18.9 PNEUMONIA, UNSPECIFIED ORGANISM 06/11/2018 SARA CONROY MD Ot J43.9 EMPHYSEMA, UNSPECIFIED 06/11/2018 SARA CONROY MD Ot L13.9 BULLOUS DISORDER, UNSPECIFIED 06/11/2018 SARA CONROY MD Ot Z87.891 PERSONAL HISTORY OF NICOTINE DEPENDENCE Procedures Code Description Performed By [place]formed On S[address] PULMONARY REHAB 02/26/2012 Ry Ny 04/01/2012 95722 OVERNIGHT OXIMETRY 05/07/2012 12163 SLEEP STUDY 05/07/2012 46985 ROUTINE VENIPUNCTURE 02/14/2013 [id number] GFR CALC (RESULT ONLY) 02/14/2013 21059 CMP 02/14/2013 [id number] OXIMETRY 02/18/2013 G0008 FLU ADMINISTRATION ( MEDICARE ONLY) 02/18/2013 [id number] OXIMETRY 03/13/2013 30130 ROUTINE VENIPUNCTURE 08/26/2013 18015 CMP 08/26/2013 [id number] GFR CALC (RESULT ONLY) 08/26/2013 [id number] [employer] DRUG SCREEN 08/29/2013 [id number] BONE DENSITY, DEXA 09/04/2013 [id number] OXIMETRY 09/04/2013 42551 ROUTINE VENIPUNCTURE 09/30/2013 12317 TSH 09/30/2013 [id number] OXIMETRY 10/07/2013 Results Test Result Range Complete blood count (CBC) with automated white blood cell (WBC) differential - 02/20/16 07:41 Blood leukocytes automated count (number/volume) 8.9 10*3/uL 4.3-11.0 Blood erythrocytes automated count (number/volume) 4.10 10*6/uL 4.35-5.85 Venous blood hemoglobin measurement (mass/volume) 12.2 g/dL 13.3-17.7 Blood hematocrit (volume fraction) 38 % 40-54 Automated erythrocyte mean corpuscular volume 94 [foz_us] 80-99 Automated erythrocyte mean corpuscular hemoglobin (mass per erythrocyte) 30 pg 25-34 Automated erythrocyte mean corpuscular hemoglobin concentration measurement ( mass/volume) 32 g/dL 32-36 Automated erythrocyte distribution width ratio 15.3 % 10.0-14.5 Automated blood platelet count (count/volume) 219 10*3/uL 130-400 Automated blood platelet mean volume measurement 9.0 [foz_us] 7.4-10.4 Automated blood neutrophils/100 leukocytes 80 % 42-75 Automated blood lymphocytes/100 leukocytes 11 % 12-44 Blood monocytes/100 leukocytes 7 % 0-12 Automated blood eosinophils/100 leukocytes 2 % 0-10 Automated blood basophils/100 leukocytes 0 % 0-10 Blood neutrophils automated count (number/volume) 7.1 10*3 1.8-7.8 Blood lymphocytes automated count (number/volume) 1.0 10*3 1.0-4.0 Blood monocytes automated count (number/volume) 0.6 10*3 0.0-1.0 Automated eosinophil count 0.2 10*3/uL 0.0-0.3 Automated blood basophil count (count/volume) 0.0 10*3/uL 0.0-0.1 Comprehensive metabolic panel - 02/20/16 07:41 Serum or plasma sodium measurement (moles/volume) 136 mmol/L 135-145 Serum or plasma potassium measurement (moles/volume) 5.6 mmol/L 3.6-5.0 Serum or plasma chloride measurement (moles/volume) 95 mmol/L 98-107 Carbon dioxide 34 mmol/L 21-32 Serum or plasma anion gap determination (moles/volume) 7 mmol/L 5-14 Serum or plasma urea nitrogen measurement (mass/volume) 20 mg/dL 7-18 Serum or plasma creatinine measurement (mass/volume) 0.97 mg/dL 0.60-1.30 Serum or plasma urea nitrogen/creatinine mass ratio 21 NRG Serum or plasma creatinine measurement with calculation of estimated glomerular filtration rate > NRG Serum or plasma glucose measurement (mass/volume) 121 mg/dL 70-105 Serum or plasma calcium measurement (mass/volume) 8.8 mg/dL 8.5-10.1 Serum or plasma total bilirubin measurement (mass/volume) 0.3 mg/dL 0.1-1.0 Serum or plasma alkaline phosphatase measurement (enzymatic activity/volume) 74 U/L 40-136 Serum or plasma aspartate aminotransferase measurement (enzymatic activity/ volume) 26 U/L 5-34 Serum or plasma alanine aminotransferase measurement (enzymatic activity/volume ) 30 U/L 0-55 Serum or plasma protein measurement (mass/volume) 7.1 g/dL 6.4-8.2 Serum or plasma albumin measurement (mass/volume) 3.9 g/dL 3.2-4.5 Complete urinalysis with reflex to culture - 02/20/16 08:09 Urine color determination YELLOW NRG Urine clarity determination CLEAR NRG Urine pH measurement by test strip 8 5-9 Specific gravity of urine by test strip 1.010 1.016- 1.022 Urine protein assay by test strip, semi-quantitative 2+ NEGATIVE Urine glucose detection by automated test strip NEGATIVE NEGATIVE Erythrocytes detection in urine sediment by light microscopy NEGATIVE NEGATIVE Urine ketones detection by automated test strip NEGATIVE NEGATIVE Urine nitrite detection by test strip NEGATIVE NEGATIVE Urine total bilirubin detection by test strip NEGATIVE NEGATIVE Urine urobilinogen measurement by automated test strip (mass/volume) NORMAL NORMAL Urine leukocyte esterase detection by dipstick 1+ NEGATIVE Automated urine sediment erythrocyte count by microscopy (number/high power field) [HPF] NRG Automated urine sediment leukocyte count by microscopy (number/high power field ) [HPF] NRG Bacteria detection in urine sediment by light microscopy FEW NRG Squamous epithelial cells detection in urine sediment by light microscopy 2-5 NRG Crystals detection in urine sediment by light microscopy PRESENT NRG Casts detection in urine sediment by light microscopy PRESENT NRG Mucus detection in urine sediment by light microscopy NEGATIVE NRG Complete urinalysis with reflex to culture YES NRG Amorphous sediment detection in urine sediment by light microscopy RARE DMITRIY PHOSPHATE NRG Hyaline casts detection in urine sediment by light microscopy 10-25 NRG Bacterial urine culture - 02/20/16 08:09 Bacterial urine culture [id number] NRG COLONY COUNT <10,000 NRG Comp. Metabolic Panel (14) - 04/18/16 13:41 Glucose, Serum 112 mg/dL 65-99 BUN 16 mg/dL 6-24 Creatinine, Serum 0.94 mg/dL 0.76-1.27 eGFR If NonAfricn Am 90 mL/min/1.73 >59 eGFR If Africn Am 104 mL/min/1.73 >59 BUN/Creatinine Ratio 17 9-20 Sodium, Serum 140 mmol/L 134-144 Potassium, Serum 5.6 mmol/L 3.5-5.2 Chloride, Serum 94 mmol/L 96-106 Carbon Dioxide, Total 27 mmol/L 18-29 Calcium, Serum 9.4 mg/dL 8.7-10.2 Protein, Total, Serum 7.4 g/dL 6.0-8.5 Albumin, Serum 4.3 g/dL 3.5-5.5 Globulin, Total 3.1 g/dL 1.5-4.5 A/G Ratio 1.4 1.1-2.5 Bilirubin, Total 0.2 mg/dL 0.0-1.2 Alkaline Phosphatase, S 87 IU/L 39-117 AST (SGOT) 32 IU/L 0-40 ALT (SGPT) 25 IU/L 0-44 Complete urinalysis with reflex to culture - 06/10/16 18:23 Urine color determination YELLOW NRG Urine clarity determination CLEAR NRG Urine pH measurement by test strip 6.5 5-9 Specific gravity of urine by test strip 1.005 1.016- 1.022 Urine protein assay by test strip, semi-quantitative 1+ NEGATIVE Urine glucose detection by automated test strip NEGATIVE NEGATIVE Erythrocytes detection in urine sediment by light microscopy NEGATIVE NEGATIVE Urine ketones detection by automated test strip NEGATIVE NEGATIVE Urine nitrite detection by test strip NEGATIVE NEGATIVE Urine total bilirubin detection by test strip NEGATIVE NEGATIVE Urine urobilinogen measurement by automated test strip (mass/volume) NORMAL NORMAL Urine leukocyte esterase detection by dipstick 1+ NEGATIVE Automated urine sediment erythrocyte count by microscopy (number/high power field) RARE NRG Automated urine sediment leukocyte count by microscopy (number/high power field ) [HPF] NRG Bacteria detection in urine sediment by light microscopy NEGATIVE NRG Squamous epithelial cells detection in urine sediment by light microscopy 25-50 NRG Crystals detection in urine sediment by light microscopy NONE NRG Casts detection in urine sediment by light microscopy PRESENT NRG Mucus detection in urine sediment by light microscopy NEGATIVE NRG Complete urinalysis with reflex to culture NO NRG Hyaline casts detection in urine sediment by light microscopy 2-5 NRG Renal epithelial cells detection in urine sediment by light microscopy NONE NRG Complete blood count (CBC) with automated white blood cell (WBC) differential - 06/10/16 19:43 Blood leukocytes automated count (number/volume) 13.9 10*3/uL 4.3-11.0 Blood erythrocytes automated count (number/volume) 4.37 10*6/uL 4.35-5.85 Venous blood hemoglobin measurement (mass/volume) 13.0 g/dL 13.3-17.7 Blood hematocrit (volume fraction) 40 % 40-54 Automated erythrocyte mean corpuscular volume 92 [foz_us] 80-99 Automated erythrocyte mean corpuscular hemoglobin (mass per erythrocyte) 30 pg 25-34 Automated erythrocyte mean corpuscular hemoglobin concentration measurement ( mass/volume) 32 g/dL 32-36 Automated erythrocyte distribution width ratio 14.6 % 10.0-14.5 Automated blood platelet count (count/volume) 242 10*3/uL 130-400 Automated blood platelet mean volume measurement 9.2 [foz_us] 7.4-10.4 Automated blood neutrophils/100 leukocytes 93 % 42-75 Automated blood lymphocytes/100 leukocytes 3 % 12-44 Blood monocytes/100 leukocytes 4 % 0-12 Automated blood eosinophils/100 leukocytes 1 % 0-10 Automated blood basophils/100 leukocytes 0 % 0-10 Blood neutrophils automated count (number/volume) 12.8 10*3 1.8-7.8 Blood lymphocytes automated count (number/volume) 0.3 10*3 1.0-4.0 Blood monocytes automated count (number/volume) 0.6 10*3 0.0-1.0 Automated eosinophil count 0.1 10*3/uL 0.0-0.3 Automated blood basophil count (count/volume) 0.0 10*3/uL 0.0-0.1 Blood manual differential performed detection - 06/10/16 19:43 Blood monocytes/100 leukocytes 3 % NRG Manual blood segmented neutrophils/100 leukocytes 79 % NRG Blood band neutrophils/100 leukocytes 14 % NRG Manual blood lymphocytes/100 leukocytes 2 % NRG Manual eosinophils/100 leukocytes in nose 0 % NRG Manual blood basophils/100 leukocytes 0 % NRG Blood lymphocytes variant/100 leukocytes 2 % NRG Blood anisocytosis detection by light microscopy SLIGHT NRG Blood toxic granules detection by light microscopy 1+ NRG Blood poikilocytosis detection by light microscopy MODERATE NRG Blood stomatocytes detection by light microscopy MODERATE NRG Blood platelet clump detection by light microscopy SLIGHT NRG Blood lactic acid measurement (moles/volume) - 06/10/16 19:43 Blood lactic acid measurement (moles/volume) 1.0 mmol/L 0.5-2.0 Comprehensive metabolic panel - 06/10/16 19:43 Serum or plasma sodium measurement (moles/volume) 136 mmol/L 135-145 Serum or plasma potassium measurement (moles/volume) 4.6 mmol/L 3.6-5.0 Serum or plasma chloride measurement (moles/volume) 95 mmol/L 98-107 Carbon dioxide 28 mmol/L 21-32 Serum or plasma anion gap determination (moles/volume) 13 mmol/L 5-14 Serum or plasma urea nitrogen measurement (mass/volume) 18 mg/dL 7-18 Serum or plasma creatinine measurement (mass/volume) 1.06 mg/dL 0.60-1.30 Serum or plasma urea nitrogen/creatinine mass ratio 17 NRG Serum or plasma creatinine measurement with calculation of estimated glomerular filtration rate > NRG Serum or plasma glucose measurement (mass/volume) 113 mg/dL 70-105 Serum or plasma calcium measurement (mass/volume) 9.0 mg/dL 8.5-10.1 Serum or plasma total bilirubin measurement (mass/volume) 0.4 mg/dL 0.1-1.0 Serum or plasma alkaline phosphatase measurement (enzymatic activity/volume) 65 U/L 40-136 Serum or plasma aspartate aminotransferase measurement (enzymatic activity/ volume) 36 U/L 5-34 Serum or plasma alanine aminotransferase measurement (enzymatic activity/volume ) 37 U/L 0-55 Serum or plasma protein measurement (mass/volume) 7.1 g/dL 6.4-8.2 Serum or plasma albumin measurement (mass/volume) 3.9 g/dL 3.2-4.5 Lipase - 06/10/16 19:43 Lipase 33 U/L 8-78 Magnesium - 06/10/16 19:43 Magnesium 1.5 mg/dL 1.8-2.4 Fibrin D-dimer FEU measurement in platelet poor plasma (mass/volume) - 19:43 Fibrin D-dimer FEU measurement in platelet poor plasma (mass/volume) 0.36 ug/mL 0.00-0.49 Serum or plasma lithium measurement (moles/volume) - 06/10/16 19:43 BNP level 19.2 pg/mL <100.0 Serum or plasma troponin i.cardiac measurement (mass/volume) - 06/10/16 19:43 Serum or plasma troponin i.cardiac measurement (mass/volume) < ng/ mL <0.30 Bacterial blood culture - 06/10/16 19:43 Bacterial blood culture NG NRG Influenza virus A and B antigen detection - 06/10/16 19:47 FLU RESULT NEGATIVE FOR INFLUENZA A AND B ANTIGENS BY IA NRG Bacterial blood culture - 06/10/16 20:00 Bacterial blood culture NG NRG Arterial blood gas measurement - 06/10/16 21:25 Blood pCO2 56 mm[Hg] 35-45 Blood pO2 109 mm[Hg] 79-93 Arterial blood bicarbonate measurement (moles/volume) 31 mmol/L 23-27 Arterial blood base excess by calculation 4.3 mmol/L -2.5 -2.5 Arterial blood oxygen saturation measurement 98 % 94-100 * Inhaled oxygen flow rate ROOM AIR NRG Arterial blood pH measurement with patient temperature correction 7.36 7.37-7.43 Arterial blood carbon dioxide, total measurement (moles/volume) 32.1 mmol/L 21.0-31.0 Body site RIGHT RADIAL NRG Assessment of wrist artery patency prior to arterial puncture YES- POS NRG Setting of ventilation mode NO NRG Measurement of body temperature 99.1 NRG Complete blood count (CBC) with automated white blood cell (WBC) differential - 06/11/16 04:39 Blood leukocytes automated count (number/volume) 12.1 10*3/uL 4.3-11.0 Blood erythrocytes automated count (number/volume) 4.05 10*6/uL 4.35-5.85 Venous blood hemoglobin measurement (mass/volume) 12.2 g/dL 13.3-17.7 Blood hematocrit (volume fraction) 37 % 40-54 Automated erythrocyte mean corpuscular volume 92 [foz_us] 80-99 Automated erythrocyte mean corpuscular hemoglobin (mass per erythrocyte) 30 pg 25-34 Automated erythrocyte mean corpuscular hemoglobin concentration measurement ( mass/volume) 33 g/dL 32-36 Automated erythrocyte distribution width ratio 14.6 % 10.0-14.5 Automated blood platelet count (count/volume) 259 10*3/uL 130-400 Automated blood platelet mean volume measurement 10.0 [foz_us] 7.4-10.4 Automated blood neutrophils/100 leukocytes 98 % 42-75 Automated blood lymphocytes/100 leukocytes 2 % 12-44 Blood monocytes/100 leukocytes 1 % 0-12 Automated blood eosinophils/100 leukocytes 0 % 0-10 Automated blood basophils/100 leukocytes 0 % 0-10 Blood neutrophils automated count (number/volume) 11.8 10*3 1.8-7.8 Blood lymphocytes automated count (number/volume) 0.2 10*3 1.0-4.0 Blood monocytes automated count (number/volume) 0.1 10*3 0.0-1.0 Automated eosinophil count 0.0 10*3/uL 0.0-0.3 Automated blood basophil count (count/volume) 0.0 10*3/uL 0.0-0.1 Magnesium - 06/11/16 04:39 Magnesium 2.0 mg/dL 1.8-2.4 Arterial blood gas measurement - 06/11/16 09:05 Blood pCO2 53 mm[Hg] 35-45 Blood pO2 87 mm[Hg] 79-93 Arterial blood bicarbonate measurement (moles/volume) 25 mmol/L 23-27 Arterial blood base excess by calculation -2.4 mmol/L - 2.5-2.5 Arterial blood oxygen saturation measurement 96 % 94-100 * Inhaled oxygen flow rate 10 L NRG Arterial blood pH measurement with patient temperature correction 7.29 7.37-7.43 Arterial blood carbon dioxide, total measurement (moles/volume) 26.2 mmol/L 21.0-31.0 Body site LT RAD NRG Assessment of wrist artery patency prior to arterial puncture YES- POS NRG Setting of ventilation mode NO NRG Measurement of body temperature 99.6 NRG Arterial blood gas measurement - 06/12/16 09:00 Blood pCO2 62 mm[Hg] 35-45 Blood pO2 210 mm[Hg] 79-93 Arterial blood bicarbonate measurement (moles/volume) 27 mmol/L 23-27 Arterial blood base excess by calculation -0.5 mmol/L - 2.5-2.5 Arterial blood oxygen saturation measurement 100 % 94- 100 * Inhaled oxygen flow rate 50% NRG Arterial blood pH measurement with patient temperature correction 7.27 7.37-7.43 Arterial blood carbon dioxide, total measurement (moles/volume) 29.2 mmol/L 21.0-31.0 Body site RT RADIAL NRG Assessment of wrist artery patency prior to arterial puncture YES- POS NRG Setting of ventilation mode NO NRG Measurement of body temperature 99.4 NRG Complete blood count (CBC) with automated white blood cell (WBC) differential - 06/12/16 09:08 Blood leukocytes automated count (number/volume) 31.3 10*3/uL 4.3-11.0 Blood erythrocytes automated count (number/volume) 4.34 10*6/uL 4.35-5.85 Venous blood hemoglobin measurement (mass/volume) 12.9 g/dL 13.3-17.7 Blood hematocrit (volume fraction) 41 % 40-54 Automated erythrocyte mean corpuscular volume 93 [foz_us] 80-99 Automated erythrocyte mean corpuscular hemoglobin (mass per erythrocyte) 30 pg 25-34 Automated erythrocyte mean corpuscular hemoglobin concentration measurement ( mass/volume) 32 g/dL 32-36 Automated erythrocyte distribution width ratio 15.3 % 10.0-14.5 Automated blood platelet count (count/volume) 344 10*3/uL 130-400 Automated blood platelet mean volume measurement 9.4 [foz_us] 7.4-10.4 Automated blood neutrophils/100 leukocytes 95 % 42-75 Automated blood lymphocytes/100 leukocytes 3 % 12-44 Blood monocytes/100 leukocytes 3 % 0-12 Automated blood eosinophils/100 leukocytes 0 % 0-10 Automated blood basophils/100 leukocytes 0 % 0-10 Blood neutrophils automated count (number/volume) 29.6 10*3 1.8-7.8 Blood lymphocytes automated count (number/volume) 0.9 10*3 1.0-4.0 Blood monocytes automated count (number/volume) 0.8 10*3 0.0-1.0 Automated eosinophil count 0.1 10*3/uL 0.0-0.3 Automated blood basophil count (count/volume) 0.0 10*3/uL 0.0-0.1 Blood manual differential performed detection - 06/12/16 09:08 Blood monocytes/100 leukocytes 2 % NRG Manual blood segmented neutrophils/100 leukocytes 87 % NRG Blood band neutrophils/100 leukocytes 6 % NRG Manual blood lymphocytes/100 leukocytes 1 % NRG Manual eosinophils/100 leukocytes in nose 0 % [facility] Manual blood basophils/100 leukocytes 0 % [facility] Blood lymphocytes variant/100 leukocytes 4 % [facility] Blood erythrocyte morphology finding identification NORMAL [facility] Comprehensive metabolic panel - 06/12/16 09:08 Serum or plasma sodium measurement (moles/volume) 142 mmol/L 135-145 Serum or plasma potassium measurement (moles/volume) 4.4 mmol/L 3.6-5.0 Serum or plasma chloride measurement (moles/volume) 105 mmol/L 98-107 Carbon dioxide 25 mmol/L 21-32 Serum or plasma anion gap determination (moles/volume) 12 mmol/L 5-14 Serum or plasma urea nitrogen measurement (mass/volume) 19 mg/dL 7-18 Serum or plasma creatinine measurement (mass/volume) 0.95 mg/dL 0.60-1.30 Serum or plasma urea nitrogen/creatinine mass ratio 20 NRG Serum or plasma creatinine measurement with calculation of estimated glomerular filtration rate > NR Serum or plasma glucose measurement (mass/volume) 161 mg/dL 70-105 Serum or plasma calcium measurement (mass/volume) 8.5 mg/dL 8.5-10.1 Serum or plasma total bilirubin measurement (mass/volume) 0.2 mg/dL 0.1-1.0 Serum or plasma alkaline phosphatase measurement (enzymatic activity/volume) 60 U/L 40-136 Serum or plasma aspartate aminotransferase measurement (enzymatic activity/ volume) 53 U/L 5-34 Serum or plasma alanine aminotransferase measurement (enzymatic activity/volume ) 52 U/L 0-55 Serum or plasma protein measurement (mass/volume) 7.3 g/dL 6.4-8.2 Serum or plasma albumin measurement (mass/volume) 4.0 g/dL 3.2-4.5 Serum or plasma lithium measurement (moles/volume) - 06/12/16 09:08 BNP level 254.6 pg/mL <100.0 Blood lactic acid measurement (moles/volume) - 06/12/16 09:39 Blood lactic acid measurement (moles/volume) 1.8 mmol/L 0.5-2.0 Arterial blood gas measurement - 06/12/16 15:01 Blood pCO2 46 mm[Hg] 35-45 Blood pO2 139 mm[Hg] 79-93 Arterial blood bicarbonate measurement (moles/volume) 27 mmol/L 23-27 Arterial blood base excess by calculation 1.9 mmol/L -2.5 -2.5 Arterial blood oxygen saturation measurement 99 % 94-100 * Inhaled oxygen flow rate 30% BIPAP NRG Arterial blood pH measurement with patient temperature correction 7.39 7.37-7.43 Arterial blood carbon dioxide, total measurement (moles/volume) 28.7 mmol/L 21.0-31.0 Body site LEFT RADIAL NRG Assessment of wrist artery patency prior to arterial puncture POSITIVE NRG Setting of ventilation mode NO NRG Measurement of body temperature 98.5 NRG Complete blood count (CBC) with automated white blood cell (WBC) differential - 06/13/16 03:33 Blood leukocytes automated count (number/volume) 18.0 10*3/uL 4.3-11.0 Blood erythrocytes automated count (number/volume) 3.70 10*6/uL 4.35-5.85 Venous blood hemoglobin measurement (mass/volume) 10.9 g/dL 13.3-17.7 Blood hematocrit (volume fraction) 35 % 40-54 Automated erythrocyte mean corpuscular volume 94 [foz_us] 80-99 Automated erythrocyte mean corpuscular hemoglobin (mass per erythrocyte) 30 pg 25-34 Automated erythrocyte mean corpuscular hemoglobin concentration measurement ( mass/volume) 31 g/dL 32-36 Automated erythrocyte distribution width ratio 15.3 % 10.0-14.5 Automated blood platelet count (count/volume) 265 10*3/uL 130-400 Automated blood platelet mean volume measurement 9.5 [foz_us] 7.4-10.4 Automated blood neutrophils/100 leukocytes 94 % 42-75 Automated blood lymphocytes/100 leukocytes 3 % 12-44 Blood monocytes/100 leukocytes 3 % 0-12 Automated blood eosinophils/100 leukocytes 0 % 0-10 Automated blood basophils/100 leukocytes 0 % 0-10 Blood neutrophils automated count (number/volume) 16.9 10*3 1.8-7.8 Blood lymphocytes automated count (number/volume) 0.5 10*3 1.0-4.0 Blood monocytes automated count (number/volume) 0.6 10*3 0.0-1.0 Automated eosinophil count 0.0 10*3/uL 0.0-0.3 Automated blood basophil count (count/volume) 0.0 10*3/uL 0.0-0.1 Whole blood basic metabolic panel - 06/13/16 03:33 Serum or plasma sodium measurement (moles/volume) 140 mmol/L 135-145 Serum or plasma potassium measurement (moles/volume) 4.4 mmol/L 3.6-5.0 Serum or plasma chloride measurement (moles/volume) 105 mmol/L 98-107 Carbon dioxide 25 mmol/L 21-32 Serum or plasma anion gap determination (moles/volume) 10 mmol/L 5-14 Serum or plasma urea nitrogen measurement (mass/volume) 19 mg/dL 7-18 Serum or plasma creatinine measurement (mass/volume) 0.81 mg/dL 0.60-1.30 Serum or plasma urea nitrogen/creatinine mass ratio 23 NRG Serum or plasma creatinine measurement with calculation of estimated glomerular filtration rate > NRG Serum or plasma glucose measurement (mass/volume) 144 mg/dL 70-105 Serum or plasma calcium measurement (mass/volume) 7.9 mg/dL 8.5-10.1 Serum or plasma phosphate measurement (mass/volume) - 06/13/16 03:33 Serum or plasma phosphate measurement (mass/volume) 3.2 mg/dL 2.3-4.7 Magnesium - 06/13/16 03:33 Magnesium 2.2 mg/dL 1.8-2.4 Sputum Gram stain - 06/13/16 08:42 GRAM STAIN SPUTUM MODERATE # WBC'S, NO BACTERIA NRG Bacterial sputum culture - 06/13/16 08:42 FREE TEXT EXTERNAL NO FURTHER STUDIES UNLESS REQUESTED NRG QUANTITY OF GROWTH Scant Growth NRG Bacterial sputum culture [id number] NRG Complete blood count (CBC) with automated white blood cell (WBC) differential - 06/14/16 03:30 Blood leukocytes automated count (number/volume) 11.8 10*3/uL 4.3-11.0 Blood erythrocytes automated count (number/volume) 3.79 10*6/uL 4.35-5.85 Venous blood hemoglobin measurement (mass/volume) 11.2 g/dL 13.3-17.7 Blood hematocrit (volume fraction) 35 % 40-54 Automated erythrocyte mean corpuscular volume 93 [foz_us] 80-99 Automated erythrocyte mean corpuscular hemoglobin (mass per erythrocyte) 30 pg 25-34 Automated erythrocyte mean corpuscular hemoglobin concentration measurement ( mass/volume) 32 g/dL 32-36 Automated erythrocyte distribution width ratio 15.1 % 10.0-14.5 Automated blood platelet count (count/volume) 242 10*3/uL 130-400 Automated blood platelet mean volume measurement 9.7 [foz_us] 7.4-10.4 Automated blood neutrophils/100 leukocytes 93 % 42-75 Automated blood lymphocytes/100 leukocytes 4 % 12-44 Blood monocytes/100 leukocytes 3 % 0-12 Automated blood eosinophils/100 leukocytes 0 % 0-10 Automated blood basophils/100 leukocytes 0 % 0-10 Blood neutrophils automated count (number/volume) 11.0 10*3 1.8-7.8 Blood lymphocytes automated count (number/volume) 0.5 10*3 1.0-4.0 Blood monocytes automated count (number/volume) 0.3 10*3 0.0-1.0 Automated eosinophil count 0.0 10*3/uL 0.0-0.3 Automated blood basophil count (count/volume) 0.0 10*3/uL 0.0-0.1 Whole blood basic metabolic panel - 06/14/16 03:50 Serum or plasma sodium measurement (moles/volume) 140 mmol/L 135-145 Serum or plasma potassium measurement (moles/volume) 4.5 mmol/L 3.6-5.0 Serum or plasma chloride measurement (moles/volume) 106 mmol/L 98-107 Carbon dioxide 26 mmol/L 21-32 Serum or plasma anion gap determination (moles/volume) 8 mmol/L 5-14 Serum or plasma urea nitrogen measurement (mass/volume) 20 mg/dL 7-18 Serum or plasma creatinine measurement (mass/volume) 0.81 mg/dL 0.60-1.30 Serum or plasma urea nitrogen/creatinine mass ratio 25 NRG Serum or plasma creatinine measurement with calculation of estimated glomerular filtration rate > NRG Serum or plasma glucose measurement (mass/volume) 154 mg/dL 70-105 Serum or plasma calcium measurement (mass/volume) 7.9 mg/dL 8.5-10.1 Serum or plasma phosphate measurement (mass/volume) - 06/14/16 03:50 Serum or plasma phosphate measurement (mass/volume) 3.0 mg/dL 2.3-4.7 Magnesium - 06/14/16 03:50 Magnesium 2.3 mg/dL 1.8-2.4 Complete blood count (CBC) with automated white blood cell (WBC) differential - 06/15/16 04:22 Blood leukocytes automated count (number/volume) 10.7 10*3/uL 4.3-11.0 Blood erythrocytes automated count (number/volume) 4.12 10*6/uL 4.35-5.85 Venous blood hemoglobin measurement (mass/volume) 12.3 g/dL 13.3-17.7 Blood hematocrit (volume fraction) 38 % 40-54 Automated erythrocyte mean corpuscular volume 91 [foz_us] 80-99 Automated erythrocyte mean corpuscular hemoglobin (mass per erythrocyte) 30 pg 25-34 Automated erythrocyte mean corpuscular hemoglobin concentration measurement ( mass/volume) 33 g/dL 32-36 Automated erythrocyte distribution width ratio 14.6 % 10.0-14.5 Automated blood platelet count (count/volume) 259 10*3/uL 130-400 Automated blood platelet mean volume measurement 10.0 [foz_us] 7.4-10.4 Automated blood neutrophils/100 leukocytes 91 % 42-75 Automated blood lymphocytes/100 leukocytes 5 % 12-44 Blood monocytes/100 leukocytes 4 % 0-12 Automated blood eosinophils/100 leukocytes 0 % 0-10 Automated blood basophils/100 leukocytes 0 % 0-10 Blood neutrophils automated count (number/volume) 9.8 10*3 1.8-7.8 Blood lymphocytes automated count (number/volume) 0.5 10*3 1.0-4.0 Blood monocytes automated count (number/volume) 0.4 10*3 0.0-1.0 Automated eosinophil count 0.0 10*3/uL 0.0-0.3 Automated blood basophil count (count/volume) 0.0 10*3/uL 0.0-0.1 Whole blood basic metabolic panel - 06/15/16 04:22 Serum or plasma sodium measurement (moles/volume) 141 mmol/L 135-145 Serum or plasma potassium measurement (moles/volume) 4.5 mmol/L 3.6-5.0 Serum or plasma chloride measurement (moles/volume) 101 mmol/L 98-107 Carbon dioxide 30 mmol/L 21-32 Serum or plasma anion gap determination (moles/volume) 10 mmol/L 5-14 Serum or plasma urea nitrogen measurement (mass/volume) 20 mg/dL 7-18 Serum or plasma creatinine measurement (mass/volume) 0.83 mg/dL 0.60-1.30 Serum or plasma urea nitrogen/creatinine mass ratio 24 NRG Serum or plasma creatinine measurement with calculation of estimated glomerular filtration rate > NRG Serum or plasma glucose measurement (mass/volume) 143 mg/dL 70-105 Serum or plasma calcium measurement (mass/volume) 8.6 mg/dL 8.5-10.1 Serum or plasma phosphate measurement (mass/volume) - 06/15/16 04:22 Serum or plasma phosphate measurement (mass/volume) 3.8 mg/dL 2.3-4.7 Magnesium - 06/15/16 04:22 Magnesium 2.2 mg/dL 1.8-2.4 Basic Metabolic Panel (8) - 01/18/17 14:54 Glucose, Serum 106 mg/dL 65-99 BUN 22 mg/dL 6-24 Creatinine, Serum 0.97 mg/dL 0.76-1.27 eGFR If NonAfricn Am 86 mL/min/1.73 >59 eGFR If Africn Am 100 mL/min/1.73 >59 BUN/Creatinine Ratio 23 9-20 Sodium, Serum 140 mmol/L 134-144 Potassium, Serum 4.8 mmol/L 3.5-5.2 Chloride, Serum 94 mmol/L 96-106 Carbon Dioxide, Total 30 mmol/L 18-29 Calcium, Serum 9.4 mg/dL 8.7-10.2 BMP - 01/18/17 14:54 Glucose, Serum 106 mg/dL 65-99 BUN 22 mg/dL 6-24 Creatinine, Serum 0.97 mg/dL 0.76-1.27 eGFR If NonAfricn Am 86 mL/min/1.73 >59 eGFR If Africn Am 100 mL/min/1.73 >59 BUN/Creatinine Ratio 23 9-20 Sodium, Serum 140 mmol/L 134-144 Potassium, Serum 4.8 mmol/L 3.5-5.2 Chloride, Serum 94 mmol/L 96-106 Carbon Dioxide, Total 30 mmol/L 18-29 Calcium, Serum 9.4 mg/dL 8.7-10.2 CMP - 12/14/17 10:39 GLUCOSE 103 mg/dL 65-99 UREA NITROGEN (BUN) 25 mg/dL 7-25 CREATININE 1.11 mg/dL 0.70-1.33 eGFR NON-AFR. KOSOVAN 73 mL/min/1.73m2 > OR=60 eGFR 84 mL/min/1.73m2 > OR=60 BUN/CREATININE RATIO NOT APPLICABLE (calc) 6-22 SODIUM 141 mmol/L 135-146 POTASSIUM 4.3 mmol/L 3.5-5.3 CHLORIDE 98 mmol/L 98-110 CARBON DIOXIDE 32 mmol/L 20-32 CALCIUM 9.4 mg/dL 8.6-10.3 PROTEIN, TOTAL 7.5 g/dL 6.1-8.1 ALBUMIN 4.3 g/dL 3.6-5.1 GLOBULIN 3.2 g/dL (calc) 1.9-3.7 ALBUMIN/GLOBULIN RATIO 1.3 (calc) 1.0-2.5 BILIRUBIN, TOTAL 0.3 mg/dL 0.2-1.2 ALKALINE PHOSPHATASE 74 U/L 40-115 AST 23 U/L 10-35 ALT 26 U/L 9-46 Complete blood count (CBC) with automated white blood cell (WBC) differential - 06/11/18 14:40 Blood leukocytes automated count (number/volume) 9.9 10*3/uL 4.3-11.0 Blood erythrocytes automated count (number/volume) 4.06 10*6/uL 4.35-5.85 Venous blood hemoglobin measurement (mass/volume) 12.1 g/dL 13.3-17.7 Blood hematocrit (volume fraction) 38 % 40-54 Automated erythrocyte mean corpuscular volume 94 [foz_us] 80-99 Automated erythrocyte mean corpuscular hemoglobin (mass per erythrocyte) 30 pg 25-34 Automated erythrocyte mean corpuscular hemoglobin concentration measurement ( mass/volume) 32 g/dL 32-36 Automated erythrocyte distribution width ratio 15.0 % 10.0-14.5 Automated blood platelet count (count/volume) 243 10*3/uL 130-400 Automated blood platelet mean volume measurement 10.0 [foz_us] 7.4-10.4 Automated blood neutrophils/100 leukocytes 88 % 42-75 Automated blood lymphocytes/100 leukocytes 8 % 12-44 Blood monocytes/100 leukocytes 4 % 0-12 Automated blood eosinophils/100 leukocytes 0 % 0-10 Automated blood basophils/100 leukocytes 0 % 0-10 Blood neutrophils automated count (number/volume) 8.7 10*3 1.8-7.8 Blood lymphocytes automated count (number/volume) 0.8 10*3 1.0-4.0 Blood monocytes automated count (number/volume) 0.4 10*3 0.0-1.0 Automated eosinophil count 0.0 10*3/uL 0.0-0.3 Automated blood basophil count (count/volume) 0.0 10*3/uL 0.0-0.1 Whole blood basic metabolic panel - 06/11/18 14:40 Serum or plasma sodium measurement (moles/volume) 131 mmol/L 135-145 Serum or plasma potassium measurement (moles/volume) 6.0 mmol/L 3.6-5.0 Serum or plasma chloride measurement (moles/volume) 97 mmol/L 98-107 Carbon dioxide 26 mmol/L 21-32 Serum or plasma anion gap determination (moles/volume) 8 mmol/L 5-14 Serum or plasma urea nitrogen measurement (mass/volume) 38 mg/dL 7-18 Serum or plasma creatinine measurement (mass/volume) 1.50 mg/dL 0.60-1.30 Serum or plasma urea nitrogen/creatinine mass ratio 25 NRG Serum or plasma creatinine measurement with calculation of estimated glomerular filtration rate 48 NRG Serum or plasma glucose measurement (mass/volume) 113 mg/dL 70-105 Serum or plasma calcium measurement (mass/volume) 9.1 mg/dL 8.5-10.1 Blood manual differential performed detection - 06/11/18 14:40 Blood monocytes/100 leukocytes 0 % NRG Manual blood segmented neutrophils/100 leukocytes 90 % NRG Blood band neutrophils/100 leukocytes 1 % NRG Manual blood lymphocytes/100 leukocytes 8 % NRG Manual eosinophils/100 leukocytes in nose 0 % NRG Manual blood basophils/100 leukocytes 0 % NRG Blood lymphocytes variant/100 leukocytes 1 % NRG Blood hypochromia detection by light microscopy SLIGHT NRG Blood stomatocytes detection by light microscopy SLIGHT NRG Arterial blood gas measurement - 06/11/18 15:18 Blood pCO2 59 mm[Hg] 35-45 Blood pO2 84 mm[Hg] 79-93 Arterial blood bicarbonate measurement (moles/volume) 27 mmol/L 23-27 Arterial blood base excess by calculation 1.4 mmol/L -2.5 -2.5 Arterial blood oxygen saturation measurement 95 % 94-100 * Inhaled oxygen flow rate 4 NRG Arterial blood pH measurement with patient temperature correction 7.29 7.37-7.43 Arterial blood carbon dioxide, total measurement (moles/volume) 29.2 mmol/L 21.0-31.0 Body site R RADIAL NRG Assessment of wrist artery patency prior to arterial puncture POSITIVE NRG Setting of ventilation mode NO NRG Measurement of body temperature 98.5 NRG Encounters ACCT No. Visit Date/Time Discharge Status Pt. Type Provider Facility Loc./Unit Complaint [id number] 06/26/2014 13:27:00 06/26/2014 23:59:59 DIAMOND Outpatient SARA CONROY MD [id number] 04/21/2014 14:02:00 04/21/2014 23:59:59 SARA Murillo MD [id number] 02/05/2014 13:18:00 02/05/2014 23:59:59 CLS Outpatient JONO CLARK DAVILA [id number] 01/22/2014 09:06:00 01/22/2014 23:59:59 SARA Murillo MD [id number] 09/30/2013 15:26:00 09/30/2013 23:59:59 SARA Murillo MD [id number] 08/26/2013 11:17:00 08/26/2013 23:59:59 SARA Murillo MD [id number] 08/26/2013 11:17:00 08/26/2013 23:59:59 SARA Murillo MD [id number] 04/25/2013 13:15:00 04/25/2013 23:59:59 SARA Murillo MD [id number] 04/25/2013 13:15:00 04/25/2013 23:59:59 SARA Murillo MD [id number] 03/13/2013 14:47:00 03/13/2013 23:59:59 SARA Murillo MD [id number] 02/14/2013 09:48:00 02/14/2013 23:59:59 SARA Murillo MD [id number] 02/14/2013 09:48:00 02/14/2013 23:59:59 SARA Murillo MD [id number] 11/18/2012 09:23:00 11/18/2012 23:59:59 SARA Murillo MD [id number] 06/17/2012 18:02:00 06/17/2012 23:59:59 CLS Outpatient KAROLINE COLLIER, RY Lechuga [id number] 05/20/2012 10:55:00 05/20/2012 23:59:59 CLS Outpatient SARA CONROY MD [id number] 05/07/2012 11:10:00 05/07/2012 23:59:59 CLS Outpatient SARA CONROY MD [id number] 04/01/2012 15:44:00 04/01/2012 23:59:59 [place] [id number] 02/26/2012 11:12:00 02/26/2012 23:59:59 CLS Outpatient SARA CONROY MD [id number] 10/03/2012 15:27:00 Document Registration [id number] 01/19/2017 08:07:00 Document Registration [id number] 08/20/2017 12:04:00 08/20/2017 23:59:59 CLS Outpatient SARA CONROY MD [facility] RAD Z00.00 MEDICARE ANNUAL WELLNESS VISIT [id number] 01/19/2017 12:45:00 01/19/2017 23:59:59 CLS Outpatient NIKHIL WEIR APRN [facility] RT COPD,CHRONIC BRONCHITIS [id number] 06/10/2016 22:11:00 06/16/2016 13:40:00 DIS Inpatient BRAIN BRUCE MD [facility] 4TH AECOPD; FEVER [id number] 02/20/2016 07:05:00 02/20/2016 10:31:00 DIS Emergency JOSUE BACA MD [facility] ER VOMITING/HEADACHE [id number] 09/04/2013 09:35:00 09/04/2013 23:59:59 CLS Outpatient SARA CONROY MD [facility] RAD CHRONIC STEROID TREATMENTS [id number] 04/12/2013 15:42:00 04/17/2013 11:40:00 DIS Inpatient SARA CONROY MD [facility] 4TH FEVER/HYPOXIA [id number] 06/11/2018 16:00:00 ACT Inpatient MADISON BOURNE DO [facility] ICU COPD EXACERBATION [id number] 06/11/2018 14:45:00 ACT Outpatient HILLARY EDGARDO [facility] RT R06.00,J42 [id number] 06/18/2012 15:00:00 Document Registration [id number] 05/27/2012 10:10:00 Document Registration [id number] 05/21/2012 11:49:00 Document Registration [id number] 05/16/2012 13:00:00 Document Registration [id number] 08/18/2011 14:31:00 Document Registration [id number] 06/28/2011 11:41:00 Document Registration [id number] 02/15/2011 12:20:00 Document Registration [id number] 02/03/2011 10:50:00 Document Registration [id number] 11/16/2010 05:35:00 Document Registration [id number] 02/23/2017 09:28:00 06/20/2017 09:30:00 DIS Outpatient Roderick Patton [id number] 02/20/2017 13:09:00 02/20/2017 23:59:00 DIS Outpatient Roderick Patton [id number] 04/19/2016 13:05:00 Document Registration [id number] 08/13/2017 11:00:00 08/13/2017 23:59:59 CLS Outpatient RAFIQ COLLIER, [facility] [id number] 12/14/2017 10:00:00 Document Registration [id number] 01/18/2017 14:20:00 Document Registration
--- NOTE | 2018-06-11 16:58 | NUR ---
Initial visit with pt and then 1:1 with his , Afia in the waiting room. Offered active listening and compassionate presence. Afia expressed feelings of grief, regret for not taking her to the hospital sooner, and relief for a supportive care team. She shared that their first grand daughter was born late last year, a source of garry for them both.
[2018-06-11] MEDS ORDERED: inSUlin (REGULAR) HUMAN 1 UNIT/0.01 ML (CHARGE PER UNIT) IV NR (17:15)
[2018-06-11] MEDS ORDERED: DEXTROSE 50% 50 ML (IMS) SYR IV NR (17:15)
[2018-06-11] MEDS ORDERED: RT-ALBUTEROL/IPRATROPIUM 3 ML (DUONEB) VIAL IH PRN (17:15)
[2018-06-11] MEDS ORDERED: SODIUM BICARB 8.4% 50 MEQ/50 ML (ABBOTT) SYR IV NR (17:15)
[2018-06-11] MEDS ORDERED: SOD POLYSTERENE 15 GM/60 ML (KAYEXALATE) UNIT DOSE PO NR (17:15)
[2018-06-11 17:35] LABS: BASOPHILS % (AUTO) 0 % (0-10); EOSINOPHILS % (AUTO) 0 % (0-10); HEMATOCRIT 37 % (40-54); HEMOGLOBIN 11.9 G/DL (13.3-17.7); LYMPHOCYTES # (AUTO) 0.7 X 10^3 (1.0-4.0); LYMPHOCYTES % (AUTO) 6 % (12-44); MEAN CORPUSCULAR HEMOGLOBIN 30 PG (25-34); MEAN CORPUSCULAR HGB CONC 32 G/DL (32-36); MEAN CORPUSCULAR VOLUME 94 FL (80-99); MEAN PLATELET VOLUME 9.4 FL (7.4-10.4); MONOCYTES # (AUTO) 0.3 X 10^3 (0.0-1.0); MONOCYTES % (AUTO) 3 % (0-12); NEUTROPHILS # (AUTO) 9.8 X 10^3 (1.8-7.8); NEUTROPHILS % (AUTO) 90 % (42-75); PLATELET COUNT 205 10^3/uL (130-400); WHITE BLOOD COUNT 10.9 10^3/uL (4.3-11.0)
[2018-06-11] MEDS: methylPREDNISolone 40 MG/ML (Solu-MEDROL) VIAL IV SCH (17:45)
[2018-06-11] MEDS: ENOXAPARIN 40 MG/0.4 ML (LOVENOX) SYR SC SCH (17:46)
[2018-06-11] MEDS: NS IV 1000 ML 1,000 ML IV SCH (17:47)
--- NOTE | 2018-06-11 17:53 | NUR ---
WENT OVER THE EXT MED HX WELL THE LIST THE PATIENT BROUGHT IN WITH HIS . SHE VERIFIED HOW HE TAKES ALL HIS MEDICATIONS. HIS BACLOFEN WAS FILLED #90 FOR 30 DAYS HOWEVER SHE STATES THIS WAS DECREASED TO BID. PROMETHAZINE WAS FILLED #60 FOR 30 DAYS HOWEVER SHE STATES HE ONLY TAKES IT ONCE DAILY. ALSO REPORTS HE HAS ALBUTEROL NEBULIZER SOLUTION NEEDED. OTC MEDS: ARTIFICIAL TEARS NEEDED TURMERIC BID MTV DAILY IBU PRN MUCINEX 2 TABS TID GLUCOSAMINE AND CHONDROITIN DAILY COLACE DAILY AT NOON ZYRTEC 10MG DAILY CALCIUM +D BID EXCEDRIN EVERY MORNING AND 1 LATER IN THE DAY NEEDED
--- NOTE | 2018-06-11 18:56 | NUR ---
KAYA CARPENTER admitted to room CU1-1, with an admitting diagnosis of copd, on 06/11/18 from via wheelchair, accompanied by staff.KAYA CARPENTER introduced to surroundings, call light, bed controls, phone, TV, temperature control, lights, meal times, smoking policy, visitor policy, side rail policy, bathrooms and showers. Patient Rights given to patient in the handbook. KAYA CARPENTER verbalizes understanding that [facility] is not responsible for the loss or damage to any personal effects or valuables that are kept in the patients posession during their hospitalization. The following Patient Care Plans were discussed with the pt: Discharge Planning. KAYA CARPENTER verbalizes understanding of Interdisciplinary Patient Education. Patient and/or family were informed about the Rapid Response Team and its purpose.
[2018-06-11 19:17] LABS: BILIRUBIN,URINE NEGATIVE (NEGATIVE); CLARITY,URINE CLEAR; COLOR,URINE YELLOW; GLUCOSE, URINE (UA) 2+ (NEGATIVE); KETONES,URINE 1+ (NEGATIVE); LEUKOCYTE ESTERASE ,URINE NEGATIVE (NEGATIVE); NITRITE,URINE NEGATIVE (NEGATIVE); PH,URINE 5 (5-9); PROTEIN,URINE NEGATIVE (NEGATIVE); UROBILINOGEN,URINE NORMAL (NORMAL)
[2018-06-11 19:33] LABS: BACTERIA,URINE NEGATIVE /HPF; SQUAMOUS EPITHELIAL CELL,UR 0-2 /HPF; WBC,URINE RARE /HPF
[2018-06-11] MEDS: RT-ALBUTEROL/IPRATROPIUM 3 ML (DUONEB) VIAL IH SCH (20:15)
[2018-06-11 20:42] LABS: ALANINE AMINOTRANSFERASE 25 U/L (0-55); ALBUMIN 3.9 GM/DL (3.2-4.5); ALKALINE PHOSPHATASE 64 U/L (40-136); BILIRUBIN,TOTAL 0.3 MG/DL (0.1-1.0); BUN/CREATININE RATIO 28; CALCIUM 8.7 MG/DL (8.5-10.1); CARBON DIOXIDE 27 MMOL/L (21-32); CHLORIDE 98 MMOL/L (98-107); CREATININE SERUM 1.16 MG/DL (0.60-1.30); GFR ESTIMATED > 60; GLUCOSE 132 MG/DL (70-105); POTASSIUM 4.8 MMOL/L (3.6-5.0); SODIUM 136 MMOL/L (135-145)
[2018-06-11 21:12] LABS: TOTAL PROTEIN 6.9 GM/DL (6.4-8.2)
[2018-06-12] VITALS (12 sets, daily range): BP systolic 91–168; BP diastolic 58–102
[2018-06-12] MEDS: RT-ALBUTEROL/IPRATROPIUM 3 ML (DUONEB) VIAL IH SCH ×7 (00:12→21:50)
[2018-06-12] MEDS: NS IV 1000 ML 1,000 ML IV SCH ×4 (00:18→18:24)
[2018-06-12] MEDS: methylPREDNISolone 40 MG/ML (Solu-MEDROL) VIAL IV SCH ×5 (00:18→23:35)
[2018-06-12 03:02] LABS: ABG BASE EXCESS 4.8 MMOL/L (-2.5-2.5); ABG OXYGEN SATURATION 98 % (94-100); ABG PCO2 55 MMHG (35-45); ABG PH 7.35 (7.37-7.43); ABG PO2 154 MMHG (79-93); ABG TCO2 31.8 MMOL/L (21.0-31.0)
[2018-06-12 03:03] LABS: ALLENS TEST YES-POS
[2018-06-12 03:04] LABS: INSPIRED O2 50%; PATIENT TEMP 97.6; VENTILATOR NO
[2018-06-12 03:42] LABS: BASOPHILS % (AUTO) 0 % (0-10); EOSINOPHILS % (AUTO) 0 % (0-10); HEMATOCRIT 35 % (40-54); HEMOGLOBIN 11.5 G/DL (13.3-17.7); LYMPHOCYTES # (AUTO) 0.4 X 10^3 (1.0-4.0); LYMPHOCYTES % (AUTO) 6 % (12-44); MEAN CORPUSCULAR HEMOGLOBIN 31 PG (25-34); MEAN CORPUSCULAR HGB CONC 33 G/DL (32-36); MEAN CORPUSCULAR VOLUME 94 FL (80-99); MEAN PLATELET VOLUME 9.8 FL (7.4-10.4); MONOCYTES % (AUTO) 0 % (0-12); NEUTROPHILS # (AUTO) 6.8 X 10^3 (1.8-7.8); NEUTROPHILS % (AUTO) 94 % (42-75); PLATELET COUNT 208 10^3/uL (130-400); WHITE BLOOD COUNT 7.2 10^3/uL (4.3-11.0)
[2018-06-12 04:02] LABS: ALANINE AMINOTRANSFERASE 34 U/L (0-55); ALBUMIN 3.7 GM/DL (3.2-4.5); ALKALINE PHOSPHATASE 71 U/L (40-136); BILIRUBIN,TOTAL 0.2 MG/DL (0.1-1.0); BUN/CREATININE RATIO 29; CALCIUM 8.2 MG/DL (8.5-10.1); CARBON DIOXIDE 23 MMOL/L (21-32); CHLORIDE 99 MMOL/L (98-107); GFR ESTIMATED > 60; GLUCOSE 159 MG/DL (70-105); MAGNESIUM 1.6 MG/DL (1.8-2.4); PHOSPHORUS 2.7 MG/DL (2.3-4.7); POTASSIUM 4.6 MMOL/L (3.6-5.0); SODIUM 135 MMOL/L (135-145); TOTAL PROTEIN 6.7 GM/DL (6.4-8.2)
--- NOTE | 2018-06-12 05:06 | Pulmonary Consultation ---
History of Present Illness History of Present Illness Date of Consultation 06/12/18 05:00 Time Seen by Provider: 05:14 Date of Admission History of Present Illness 57yo with hx of very severe oxygen dependent directly admitted from my office secondary to worsening SOB, lethargy weakness and hypoxia. upon out patient work up he was found to have acute on chronic respiratory acidosis on ABG. He denies f/ns/c. He denies CP. He has had previous exacerbations in the past. Allergies and Home Medications Allergies Coded Allergies: fentanyl (Verified Allergy, Unknown, SOA, 06/10/16) carisoprodol (Verified Adverse Reaction, Unknown, MEAN, 06/10/16) codeine (Verified Adverse Reaction, Unknown, MEAN, 06/10/16) tramadol (Verified Adverse Reaction, Unknown, FORGETFUL, 06/10/16) Home Medications Albuterol Sulfate 18 Gm Hfa.aer.ad, 2 PUFF INH Q6H PRN for SHORTNESS OF BREATH, (Reported) Albuterol Sulfate 2.5 Mg/3 Ml Vial.neb, 2.5 MG NEB QID PRN for SHORTNESS OF BREATH, (Reported) Aspirin/Acetaminophen/Caffeine 1 Each Tablet, 1 TAB PO DAILY, (Reported) Aspirin/Acetaminophen/Caffeine 1 Each Tablet, 1 TAB PO DAILY PRN for HEADACHE, ( Reported) Baclofen 10 Mg Tablet, 10 MG PO BID, (Reported) Benazepril HCl 20 Mg Tablet, 20 MG PO HS, (Reported) Calcium Carbonate/Vitamin D3 1 Each Tablet, 1 TAB PO BID, (Reported) Cetirizine HCl 10 Mg Tablet, 10 MG PO DAILY, (Reported) Citalopram Hydrobromide 20 Mg Tablet, 20 MG PO DAILY, (Reported) Docusate Sodium 100 Mg Capsule, 100 MG PO 1200, (Reported) Fluticasone/Vilanterol 1 Each Blst.w.dev, 1 PUFF IH DAILY, (Reported) Furosemide 20 Mg Tablet, 20 MG PO DAILY PRN for FLUID RETENTION, (Reported) Gluc 2Kcl/Chondr/Yariel Hy/Hy AC 1 Each Capsule, 1 CAP PO DAILY, (Reported) Guaifenesin 400 Mg Tablet, 800 MG PO TID, (Reported) Hydrocodone/Acetaminophen 1 Each Tablet, 1 TAB PO Q4H PRN for PAIN-MODERATE, ( Reported) Ibuprofen 200 Mg Tablet, 200 MG PO Q6H PRN for PAIN-MILD OR TEMPATURE, (Reported ) Montelukast Sodium 10 Mg Tablet, 10 MG PO HS, (Reported) Morphine Sulfate 60 Mg Tablet.er, 60 MG PO 0400,1600, (Reported) Multivitamin with Minerals 1 Each Tablet, 1 TAB PO DAILY, (Reported) Omeprazole 20 Mg Capsule.dr, 20 MG PO DAILY, (Reported) Potassium Chloride 10 Meq Tab.er.prt, 10 MEQ PO DAILY PRN for LOW POTASSIUM, ( Reported) Promethazine HCl 25 Mg Tablet, 25 MG PO DAILY, (Reported) Tetrahydrozoline HCl 15 Ml Drops, 1-2 DROPS OU TID PRN for DRY EYES, (Reported) Turmeric Root Extract 538 Mg Capsule, 1 CAP PO BID, (Reported) Umeclidinium [place] 62.5 Mcg Blst.w.dev, 1 PUFF INH DAILY, (Reported) Past Jofuqeo-Pjzuww-Iorqci Hx Patient Social History Alcohol Use: Denies Use Recreational Drug Use: No Former Smoker, Quit: Jan 31, 2011 2nd Hand Smoke Exposure: No Recent Hopitalizations: No Immunizations Up To Date Tetanus Booster (TDap): Unknown Date of Pneumonia Vaccine: Apr 01, 2016 Date of Influenza Vaccine: Feb 13, 2018 Seasonal Allergies Seasonal Allergies: No Past Medical History Surgeries: Yes (right knee partial replacement) Respiratory: Yes Chronic Bronchitis, Emphysema Currently Using CPAP: No Currently Using BIPAP: No Cardiac: Yes Neurological: No Reproductive Disorders: No Sexually Transmitted Disease: No HIV/AIDS: No Genitourinary: No Gastrointestinal: No Musculoskeletal: Yes (BONE SPURS, SPINA BIFIDA) Chronic Back Pain Endocrine: Yes Hypothyroidsim HEENT: No Cancer: No Psychosocial: No Integumentary: No Blood Disorders: No Family Medical History Cancer 03 FATHER, Onset:Unknown 03 MOTHER, Onset:Unknown Cataract 03 MOTHER, Onset:Unknown Chest pain 03 MOTHER, Onset:Unknown Congenital heart disease Congestive heart failure 03 MOTHER, Onset:Unknown Family history: Allergy 03 MOTHER, Onset:Unknown Family history: Arthritis 03 FATHER, Onset:Unknown 03 MOTHER Family history: Asthma 03 MOTHER, Onset:Unknown Family history: Breast disease 03 MOTHER, Onset:Unknown Family history: Cardiovascular disease 03 MOTHER, Onset:Unknown Family history: Glaucoma 03 FATHER, Onset:Unknown Family history: Hypertension 03 MOTHER, Onset:Unknown Headache 09 SISTER, Onset:Unknown Heart disease 03 MOTHER, Onset:Unknown History of - respiratory disease 03 MOTHER, Onset:Unknown History of drug abuse 09 SISTER, Onset:Unknown Hypercholesterolemia 03 FATHER, Onset:Unknown 03 MOTHER, Onset:Unknown Malignant neoplasm of lung 03 FATHER, Onset:Unknown Stroke 03 MOTHER, Onset:60 years & older No Family History of: Abdominal aortic aneurysm [place]'s disease Alcoholism Aphasia Cancer of colon Cystic fibrosis Dementia Dysphagia Family history: Alzheimer's disease Family history: Coronary thrombosis Family history: Diabetes mellitus Family history: Gastrointestinal disease Family history: Osteoporosis Family history: Thyroid disorder Hearing loss Hereditary disease History of - anemia History of - disorder Human immunodeficiency virus (HIV) seropositivity Infertile Kidney disease Myocardial infarction Parkinson's disease Prostate cancer Psychotic disorder Seizure disorder Tuberculosis Visual impairment Cancer, Lung Disease Review of Systems Time Seen by Provider: 05:13 Constitutional: Weakness, Malaise Eyes: No: Pain, Vision change, Conjunctivae inflammation, Eyelid inflammation, Other, Redness Respiratory: Cough, Dry, Shortness of breath, SOB with excertion Cardiovascular: Orthopnea, Paroxysmal Noc. Dyspnea, Lt Headedness; No: Chest Pain, Palpitations, Edema, Other Gastrointestinal: No: Nausea, Vomiting, Abdominal Pain, Diarrhea, Constipation , Melena, Hematochezia, Other Neurological: Weakness Sepsis Event Evaluation Height, Weight, BMI Height: 5'8.00" Weight: 205lbs. 0.0oz. 92.019293jg; 31.2 BMI Method:Stated Exam Exam Vital Signs Date Time Temp Pulse Resp B/P (MAP) Pulse Ox O2 Delivery O2 Flow Rate FiO2 06/12/18 04:00 97.4 06/12/18 04:00 High Flow N/C 8.00 06/12/18 04:00 92 10 109/67 (81) 95 High Flow N/C 8.00 06/12/18 03:39 112 23 145/81 (102) 93 High Flow N/C 8.00 06/12/18 03:03 95 High Flow N/C 8.00 06/12/18 02:47 88 18 97 High Flow N/C 8.00 06/12/18 02:30 94 23 134/80 (98) 98 NIV Bilevel 50.00 06/12/18 01:00 100 06/12/18 01:00 100 29 141/86 (104) 97 NIV Bilevel 50.00 06/12/18 00:15 102 13 168/102 (124) 97 NIV Bilevel 50.00 06/12/18 00:00 97.6 06/12/18 00:00 NIV Bilevel 50 06/11/18 23:00 73 10 98/61 (73) 95 NIV Bilevel 50.00 06/11/18 22:00 87 12 100/65 (77) 95 NIV Bilevel 50.00 06/11/18 20:15 94 13 92/60 (71) 95 NIV Bilevel 50.00 06/11/18 20:15 108 17 95 50.00 06/11/18 20:00 High Flow N/C 4.00 06/11/18 20:00 97.4 06/11/18 20:00 97.4 101 16 117/85 (96) 90 High Flow N/C 6.00 06/11/18 19:00 117 06/11/18 19:00 117 34 150/100 (117) 91 High Flow N/C 6.00 06/11/18 18:46 High Flow N/C 6.00 06/11/18 18:00 96 17 126/81 (96) 90 High Flow N/C 6.00 06/11/18 17:00 101 9 119/73 (88) 93 High Flow N/C 6.00 I & O 06/12/18 07:00 Intake Total 350 ml Balance 350 ml Height & Weight Height: 5'8.00" Weight: 205lbs. 0.0oz. 92.089794rr; 31.2 BMI Method:Stated General Appearance: Anxious, Chronically ill, Mild Distress HEENT: PERRL/EOMI, Pharynx Normal Neck: Full Range of Motion, Non Tender, Supple Respiratory: Chest Non Tender, Crackles, Decreased Breath Sounds Cardiovascular: Regular Rate, Rhythm, No Murmur Capillary Refill: Less Than 3 Seconds Gastrointestinal: normal bowel sounds, non tender, soft Extremity: Normal Capillary Refill, Normal Inspection Neurologic/Psychiatric: Alert, Oriented x3 Skin: Normal Color, Warm/Dry Lymphatic: No Adenopathy Results Lab Laboratory Tests 06/11/18 17:22 06/11/18 20:16 06/12/18 03:15 Assessment/Plan Assessment/Plan Acute on chronic respiratory failure -Noninvasive ventilation -Pt would benefit from home vent to mask Very severe oxygen dependent COPD with AE -Solumedrol -SVNS -Oxygen Hyperkalemia- now resolved -S/p bicarb, insulin, D50 Debility Hypomag, hypocalcium -replace EDGARDO THORNTON DO Jun 12, 2018 05:06
[2018-06-12] MEDS ORDERED: CALCIUM GLUCONATE 10% INJ 4.65 MEQ in NS (IVPB) 50 ML IV ONE (05:15)
[2018-06-12] MEDS ORDERED: CALCIUM GLUC. 10% 4.65 MEQ/10 ML VIAL ONE (05:28)
[2018-06-12] MEDS ORDERED: NS (IVPB) 50 ML ONE (05:32)
[2018-06-12] MEDS ORDERED: KCL 20 MEQ TAB (K-DUR) PO SCH (06:00)
[2018-06-12] MEDS ORDERED: MAGNESIUM 1 GM/100 ML IVPB 100 ML IV SCH (06:00)
[2018-06-12] MEDS ORDERED: POTASSIUM CL 10MEQ/50ML IVPB 50 ML IV SCH (06:00)
[2018-06-12] MEDS: MAGNESIUM 1 GM/100 ML IVPB 100 ML IV SCH ×3 (06:10→09:18)
--- NOTE | 2018-06-12 08:56 | Diagnostic Imaging Report ---
Indication: Respiratory failure. Time of exam 3:27 AM Correlation is made with prior study from one day earlier. Lungs are hyperinflated. There appears to be some minimal infiltrate or atelectasis in the right base. Otherwise lungs are clear. No effusion or pneumothorax is seen. Metallic densities overlie the left apex and left perihilar region. Impression: COPD with minimal right basilar infiltrate or atelectasis. Dictated by: Dictated on workstation # [id number]
--- NOTE | 2018-06-12 10:37 | History & Physical-Hospitalist ---
JOSEFA BOURNE DO 06/12/18 1037: History of Present Illness HPI/Chief Complaint CC: Dyspnea HPI: Chief complaint: Dyspnea HPI: This is a 57yoWM directly admitted from Dr. Acevedo yesterday due to shortness of breath. Pt had multiple upper respiratory illnesses. Pt was placed on steroids at [facility] and failed that, so now he meets criteria for inpatient stay and likely for vent to mask. Weaning oxygen now since transferred from ICU Will hep lock IV fluid and stop az inhibitor that retains potassium. He does use CPAP and oxygen 20/11 and he stopped smoking in 2011. Reviewed each one of his meds and restarted most. Source: patient Exam Limitations: no limitations Date Seen 06/12/18 Time Seen by a Provider: 10:00 Attending Physician Josefa Bourne DO PCP Sammy Andersen MD Referring Physician Date of Admission Jun 11, 2018 at 16:00 Home Medications & Allergies Home Medications Reviewed patient Home Medication Reconciliation performed by pharmacy medication reconciliations process development technician and/or nursing. Patients Allergies have been reviewed. Allergies Allergies Coded Allergies fentanyl (Verified Allergy, Unknown, SOA, 06/10/16) carisoprodol (Verified Adverse Reaction, Unknown, MEAN, 06/10/16) codeine (Verified Adverse Reaction, Unknown, MEAN, 06/10/16) tramadol (Verified Adverse Reaction, Unknown, FORGETFUL, 06/10/16) Past Zzhmmbj-Hmxebh-Rdqwmg Hx Past Med/Social Hx: Reviewed Nursing Past Med/Soc Hx, Reviewed and Corrections made Patient Social History Marrital Status: Employed/Student: retired ([employer]) Alcohol Use: Denies Use Recreational Drug Use: No Smoking Status: Former Smoker (2011) Former Smoker, Quit: Jan 31, 2011 Type Used: Cigarettes 2nd Hand Smoke Exposure: No Physical Abuse Screen: No Sexual Abuse: No Recent Hopitalizations: No Immunizations Up To Date Tetanus Booster (TDap): Unknown Date of Pneumonia Vaccine: Apr 01, 2016 Date of Influenza Vaccine: Feb 13, 2018 Seasonal Allergies Seasonal Allergies: No Past Medical History Respiratory: COPD, Emphysema Currently Using CPAP: No Currently Using BIPAP: No Cardiac: Hypertension Reproductive: No Sexually Transmitted Disease: No HIV/AIDS: No Gastrointestinal: Gastroesophageal Reflux Musculoskeletal: Chronic Back Pain Endocrine: Hypothyroidsim History of Blood Disorders: No Family History Cancer 03 FATHER, Onset:Unknown 03 MOTHER, Onset:Unknown Cataract 03 MOTHER, Onset:Unknown Chest pain 03 MOTHER, Onset:Unknown Congenital heart disease Congestive heart failure 03 MOTHER, Onset:Unknown Family history: Allergy 03 MOTHER, Onset:Unknown Family history: Arthritis 03 FATHER, Onset:Unknown 03 MOTHER Family history: Asthma 03 MOTHER, Onset:Unknown Family history: Breast disease 03 MOTHER, Onset:Unknown Family history: Cardiovascular disease 03 MOTHER, Onset:Unknown Family history: Glaucoma 03 FATHER, Onset:Unknown Family history: Hypertension 03 MOTHER, Onset:Unknown Headache 09 SISTER, Onset:Unknown Heart disease 03 MOTHER, Onset:Unknown History of - respiratory disease 03 MOTHER, Onset:Unknown History of drug abuse 09 SISTER, Onset:Unknown Hypercholesterolemia 03 FATHER, Onset:Unknown 03 MOTHER, Onset:Unknown Malignant neoplasm of lung 03 FATHER, Onset:Unknown Stroke 03 MOTHER, Onset:60 years & older No Family History of: Abdominal aortic aneurysm Person's disease Alcoholism Aphasia Cancer of colon Cystic fibrosis Dementia Dysphagia Family history: Alzheimer's disease Family history: Coronary thrombosis Family history: Diabetes mellitus Family history: Gastrointestinal disease Family history: Osteoporosis Family history: Thyroid disorder Hearing loss Hereditary disease History of - anemia History of - disorder Human immunodeficiency virus (HIV) seropositivity Infertile Kidney disease Myocardial infarction Parkinson's disease Prostate cancer Psychotic disorder Seizure disorder Tuberculosis Visual impairment Cancer, Lung Disease Review of Systems Constitutional: see HPI EENTM: no symptoms reported Respiratory: cough, dyspnea on exertion, short of breath, wheezing Cardiovascular: no symptoms reported Gastrointestinal: no symptoms reported Genitourinary: no symptoms reported Musculoskeletal: back pain Skin: no symptoms reported Psychiatric/Neurological: No Symptoms Reported All Other Systems Reviewed Negative Unless Noted: Yes Physical Exam Physical Exam Vital Signs Vital Signs - First Documented 06/11/18 06/12/18 17:00 00:00 Pulse 101 Resp 9 B/P (MAP) 119/73 (88) Pulse Ox 93 O2 Delivery High Flow N/C O2 Flow Rate 6.00 FiO2 50 Capillary Refill : Less Than 3 Seconds Height, Weight, BMI Height: 5'8.00" Weight: 205lbs. 0.0oz. 92.355909pn; 31.2 BMI Method:Stated General Appearance: No Apparent Distress, WD/WN HEENT: Normal ENT Inspection, Pharynx Normal Respiratory: Chest Non Tender, Decreased Breath Sounds, Expiration, Wheezing Cardiovascular: Regular Rate, Rhythm, No Edema Neurologic/Psychiatric: Alert, Oriented x3, No Motor/Sensory Deficits, Normal Mood/Affect Skin: Normal Color, Warm/Dry Results Results/Procedures Labs Laboratory Tests 06/11/18 17:22 06/11/18 20:16 06/12/18 03:15 06/12/18 17:15 Patient resulted labs reviewed. Assessment/Plan Admission Diagnosis AECOPD CO2 retention Chronic O2 dependency Chronic back pain HTN Plan: IV steroids Wean O2 Home meds Hold ACEi Admission Status: Inpatient Order (span 2 midnights) Reason for Inpatient Admission: Severe Resp insuff will require at least 3 days inpat Diagnosis/Problems Diagnosis/Problems (1) Acute respiratory failure Status: Acute Qualifiers: Respiratory failure complication: hypoxia and hypercapnia Qualified Codes: J96.01 - Acute respiratory failure with hypoxia; J96.02 - Acute respiratory failure with hypercapnia (2) COPD with acute exacerbation Status: Acute (3) Hyperkalemia Status: Acute (4) Hypomagnesemia with secondary hypocalcemia Status: Acute (5) Former smoker Status: Chronic (6) Chronic back pain Status: Chronic Qualifiers: Back pain location: back pain in unspecified location Back pain laterality : unspecified Qualified Codes: M54.9 - Dorsalgia, unspecified; G89.29 - Other chronic pain (7) Hypertension Status: Chronic Qualifiers: Hypertension type: essential hypertension Qualified Codes: I10 - Essential (primary) hypertension (8) GERD without esophagitis Status: Chronic Clinical Quality Measures DVT/VTE Risk/Contraindication: Risk Factor Score Per Nursin RFS Level Per Nursing on Admit: 4+=Very High MERCEDESSHAINA MEDICAL STUDENT 06/12/18 1417: History of Present Illness HPI/Chief Complaint CC: dsypnea HPI: This is 57 yo white male who presented to the hospital complaining of cough and SOB consistent with previous COPD exacerbations. He has COPD/ emphysema. He is usually on 4.5/5L of O2 at home. Dr. Acevedo is his diamond setter. Dr. Andersen is is PCP. He was initially placed in ICU for telemetry and placed on high flow O2. His breathing improved with IV steroids and nebulizer treatments. This morning he states his breathing is much easier. Denies pain or fever. He quit smoking in February 2011, "as soon as he was diagnosed with emphysema" says his . Source: patient Exam Limitations: no limitations Home Medications & Allergies Home Medications Active Scripts Medications Dose Route/Sig Max Daily Dose Days Date Category Potassium Chloride 10 Meq Tab.er.prt 10 Meq PO DAILY PRN 06/11/18 Reported Albuterol Sulfate 2.5 Mg/3 Ml Vial.neb 2.5 Mg NEB QID PRN 06/11/18 Reported Incruse Ellipta (Umeclidinium Sayre) 62.5 Mcg Blst.w.dev 1 Puff INH DAILY 06/11/18 Reported Ventolin Hfa (Albuterol Sulfate) 18 Gm Hfa.aer.ad 2 Puff INH Q6H PRN 06/11/18 Reported Montelukast Sodium 10 Mg Tablet 10 Mg PO HS 06/11/18 Reported Benazepril HCl 20 Mg Tablet 20 Mg PO HS 06/11/18 Reported Eye Drops (Tetrahydrozoline HCl) 15 Ml Drops 1-2 Drops OU TID PRN 06/11/18 Reported Zyrtec (Cetirizine HCl) 10 Mg Tablet 10 Mg PO DAILY 06/11/18 Reported Calcium 600 + Vit D 200 Tablet (Calcium Carbonate/Vitamin D3) 1 Each Tablet 1 Tab PO BID 06/11/18 Reported Turmeric (Turmeric Root Extract) 538 Mg Capsule 1 Cap PO BID 06/11/18 Reported Men's One Daily (Multivitamin with Minerals) 1 Each Tablet 1 Tab PO DAILY 06/11/18 Reported Advil (Ibuprofen) 200 Mg Tablet 200 Mg PO Q6H PRN 06/11/18 Reported Colace (Docusate Sodium) 100 Mg Capsule 100 Mg PO 1200 06/11/18 Reported Excedrin Extra Strength Caplet (Aspirin/Acetaminophen/Caffeine) 1 Each Tablet 1 Tab PO DAILY PRN 06/11/18 Reported Excedrin Extra Strength Caplet (Aspirin/Acetaminophen/Caffeine) 1 Each Tablet 1 Tab PO DAILY 06/11/18 Reported Glucosamine & Chondroitin Cap (Gluc 2Kcl/Chondr/Yariel Hy/Hy AC) 1 Each Capsule 1 Cap PO DAILY 06/11/18 Reported Citalopram HBr (Citalopram Hydrobromide) 20 Mg Tablet 20 Mg PO DAILY 06/12/16 Reported Omeprazole 20 Mg Capsule.dr 20 Mg PO DAILY 06/12/16 Reported Morphine Sulfate ER (Morphine Sulfate) 60 Mg Tablet.er 60 Mg PO 0400,1600 06/12/16 Reported Mucus Relief (Guaifenesin) 400 Mg Tablet 800 Mg PO TID 06/12/16 Reported Hydrocodon-Acetaminophn 10-325 (Hydrocodone/Acetaminophen) 1 Each Tablet 1 Tab PO Q4H PRN 06/12/16 Reported Furosemide 20 Mg Tablet 20 Mg PO DAILY PRN 06/11/16 Reported Promethazine Tablet (Promethazine HCl) 25 Mg Tablet 25 Mg PO DAILY 06/11/16 Reported Baclofen 10 Mg Tablet 10 Mg PO BID 06/11/16 Reported Breo Ellipta 100-25 Mcg INH (Fluticasone/Vilanterol) 1 Each Blst.w.dev 1 Puff IH DAILY 06/11/16 Reported Past Jysovyt-Sxeona-Fmprey Hx Patient Social History Marrital Status: Employed/Student: retired ([employer]) Alcohol Use: Denies Use Recreational Drug Use: No Smoking Status: Former Smoker Type Used: Cigarettes Past Medical History Musculoskeletal: Chronic Back Pain Endocrine: Hypothyroidsim Family History Cancer 03 FATHER, Onset:Unknown 03 MOTHER, Onset:Unknown Cataract 03 MOTHER, Onset:Unknown Chest pain 03 MOTHER, Onset:Unknown Congenital heart disease Congestive heart failure 03 MOTHER, Onset:Unknown Family history: Allergy 03 MOTHER, Onset:Unknown Family history: Arthritis 03 FATHER, Onset:Unknown 03 MOTHER Family history: Asthma 03 MOTHER, Onset:Unknown Family history: Breast disease 03 MOTHER, Onset:Unknown Family history: Cardiovascular disease 03 MOTHER, Onset:Unknown Family history: Glaucoma 03 FATHER, Onset:Unknown Family history: Hypertension 03 MOTHER, Onset:Unknown Headache 09 SISTER, Onset:Unknown Heart disease 03 MOTHER, Onset:Unknown History of - respiratory disease 03 MOTHER, Onset:Unknown History of drug abuse 09 SISTER, Onset:Unknown Hypercholesterolemia 03 FATHER, Onset:Unknown 03 MOTHER, Onset:Unknown Malignant neoplasm of lung 03 FATHER, Onset:Unknown Stroke 03 MOTHER, Onset:60 years & older No Family History of: Abdominal aortic aneurysm Justyn's disease Alcoholism Aphasia Cancer of colon Cystic fibrosis Dementia Dysphagia Family history: Alzheimer's disease Family history: Coronary thrombosis Family history: Diabetes mellitus Family history: Gastrointestinal disease Family history: Osteoporosis Family history: Thyroid disorder Hearing loss Hereditary disease History of - anemia History of - disorder Human immunodeficiency virus (HIV) seropositivity Infertile Kidney disease Myocardial infarction Parkinson's disease Prostate cancer Psychotic disorder Seizure disorder Tuberculosis Visual impairment Cancer, Lung Disease Review of Systems Constitutional: No chills, No fever EENTM: no symptoms reported Respiratory: cough, dyspnea on exertion, short of breath, wheezing Cardiovascular: No chest pain Gastrointestinal: no symptoms reported Genitourinary: no symptoms reported Musculoskeletal: back pain Skin: no symptoms reported Psychiatric/Neurological: No Symptoms Reported Physical Exam Physical Exam General Appearance: No Apparent Distress, WD/WN Eyes: Bilateral Eye Normal Inspection, Bilateral Eye PERRL, Bilateral Eye EOMI HEENT: Normal ENT Inspection, Pharynx Normal Neck: Full Range of Motion, Non Tender Respiratory: Chest Non Tender, No Accessory Muscle Use, No Respiratory Distress , Decreased Breath Sounds, Expiration, Wheezing Cardiovascular: Regular Rate, Rhythm, No Edema, No Murmur, Normal Peripheral Pulses Gastrointestinal: Normal Bowel Sounds, Non Tender, Soft Back: Normal Inspection; No Decreased Range of Motion Extremity: Non Tender, No Calf Tenderness, No Pedal Edema Neurologic/Psychiatric: Alert, Oriented x3, No Motor/Sensory Deficits, Normal Mood/Affect Skin: Normal Color, Warm/Dry Lymphatic: No Adenopathy Results Results/Procedures Imaging: Reviewed Imaging Films, Reviewed Imaging Report Imaging Date of Exam:06/12/18 CHEST 1 VIEW, AP/PA ONLY Indication: Respiratory failure. Time of exam 3:27 AM Correlation is made with prior study from one day earlier. Lungs are hyperinflated. There appears to be some minimal infiltrate or atelectasis in the right base. Otherwise lungs are clear. No effusion or pneumothorax is seen. Metallic densities overlie the left apex and left perihilar region. Impression: COPD with minimal right basilar infiltrate or atelectasis. Dictated on workstation # [id number] Dict: 06/12/18 0847 Trans: 06/12/18 0856 [facility] [id number] Interpreted by: DEANNA BOWLES MD Electronically signed by: Assessment/Plan Admission Diagnosis AECOPD Admission Status: Observation Assessment and Plan Assessment: Acute on chronic respiratory failure Oxygen dependent COPD Hyperkalemia Hypomagnesemia, hypocalcemia Chronic pain HTN Plan: High flow oxygen support IV steroids, duonebs Hypokalemia resolved with D50W and insulin, resume home meds including AZ inhibitor Replete magnesium and calcium PT/OT Diagnosis/Problems Diagnosis/Problems (1) COPD with acute exacerbation Status: Acute (2) Acute respiratory failure Status: Acute Qualifiers: Respiratory failure complication: hypoxia and hypercapnia Qualified Codes: J96.01 - Acute respiratory failure with hypoxia; J96.02 - Acute respiratory failure with hypercapnia (3) Hyperkalemia Status: Acute (4) Hypomagnesemia with secondary hypocalcemia Status: Acute JOSEFA BOURNE DO Jun 12, 2018 10:37 SHAINA LONG MEDICAL STUDENT Jun 12, 2018 14:17
[2018-06-12] MEDS ORDERED: NS 100 ML (IVPB) BAG IV ONE (16:15)
[2018-06-12] MEDS ORDERED: IOHEXOL 350 MG/ML 100 ML (OMNIPAQUE 350) VIAL IV ONE (16:15)
[2018-06-12] MEDS ORDERED: RECEIVED CONTRAST (Hold Metformin) IV SCH (16:15)
--- NOTE | 2018-06-12 17:09 | Diagnostic Imaging Report ---
PROCEDURE: CT chest with contrast only. TECHNIQUE: Multiple contiguous axial images were obtained through the chest after administration of intravenous contrast. INDICATION: Acute respiratory failure. COMPARISON: CT chest of 08/20/2017. FINDINGS: Lungs and airway: No endoluminal nodule within the trachea. Severe centrilobular and paraseptal emphysema is unchanged. Biapical subpleural scarring remains asymmetric to the right. No pulmonary mass or consolidation. Scattered areas of linear atelectasis are present in the bilateral lung bases. Numerous metallic foci within the posterior left lower lobe are similar. Pleura: No pleural effusion or pneumothorax. Chronic pleural calcifications in the left lung base are unchanged. Heart and mediastinum: Thyroid is normal where seen. No supraclavicular or axillary lymphadenopathy. No mediastinal, hilar, or juxtaphrenic lymphadenopathy. Heart is normal in size without pericardial effusion. Normal-caliber thoracic aorta. Upper abdomen: Diffuse hypoattenuation of the liver is nonspecific but raises the possibility of hepatic steatosis. No other concerning abnormality in the upper abdomen. Musculoskeletal: No concerning focal osseous lesions. IMPRESSION: 1. No pulmonic consolidations to indicate pneumonia. Scattered linear subsegmental atelectasis/scar in the lung bases. 2. Severe emphysema. Dictated by: Dictated on workstation # [id number]
[2018-06-12 17:25] LABS: BASOPHILS % (AUTO) 0 % (0-10); EOSINOPHILS % (AUTO) 0 % (0-10); HEMATOCRIT 33 % (40-54); HEMOGLOBIN 10.7 G/DL (13.3-17.7); LYMPHOCYTES # (AUTO) 0.3 X 10^3 (1.0-4.0); LYMPHOCYTES % (AUTO) 4 % (12-44); MEAN CORPUSCULAR HEMOGLOBIN 30 PG (25-34); MEAN CORPUSCULAR HGB CONC 33 G/DL (32-36); MEAN CORPUSCULAR VOLUME 93 FL (80-99); MEAN PLATELET VOLUME 9.1 FL (7.4-10.4); MONOCYTES # (AUTO) 0.3 X 10^3 (0.0-1.0); MONOCYTES % (AUTO) 3 % (0-12); NEUTROPHILS # (AUTO) 8.3 X 10^3 (1.8-7.8); NEUTROPHILS % (AUTO) 93 % (42-75); PLATELET COUNT 238 10^3/uL (130-400); WHITE BLOOD COUNT 8.9 10^3/uL (4.3-11.0)
[2018-06-12] MEDS: ENOXAPARIN 40 MG/0.4 ML (LOVENOX) SYR SC SCH (18:18)
[2018-06-12] MEDS ORDERED: NON-FORMULARY MEDICATION 1 EA EA (Ibuprofen (Advil) 200 MG) PO PRN (20:00)
[2018-06-12] MEDS ORDERED: FUROSEMIDE 20 MG (LASIX) TAB PO PRN (20:00)
[2018-06-12] MEDS ORDERED: TETRAHYDROZOLINE HCL OU PRN (20:00)
[2018-06-12] MEDS ORDERED: RELIEF PO PRN (20:00)
[2018-06-12] MEDS ORDERED: IBUPROFEN TABLET 200 MG TAB PO PRN (20:15)
[2018-06-12] MEDS ORDERED: TETRAHYDROZOLINE (VISINE) 0.05% 15 ML BTL OU PRN (20:15)
[2018-06-12] MEDS: MUCUS RELIEF 400 MG PO SCH (21:53)
[2018-06-12] MEDS: MONTELUKAST 10 MG (SINGULAIR) TAB PO SCH (21:54)
[2018-06-12] MEDS: BACLOFEN 10 MG (LIORESAL) TAB PO SCH (21:54)
--- NOTE | 2018-06-12 22:17 | NUR ---
[address] young to inform her that this pt is having bilateral slight crackles & 1+ pitting edema in his lower extremities, current iv fluids are NS at 150ml/hr. new order received to [facility] IV, give prn lasix dose
[2018-06-12] MEDS: HYDROcodone/APAP 10 MG/325 MG (LORTAB) TAB PO PRN (23:35)
[2018-06-13] MEDS: RT-ALBUTEROL/IPRATROPIUM 3 ML (DUONEB) VIAL IH SCH ×5 (01:10→22:47)
[2018-06-13 03:07] VITALS: BP 140/78
[2018-06-13] MEDS: morphine ER 30 MG (MS CONTIN) TAB PO SCH ×2 (03:13→15:31)
[2018-06-13 03:17] LABS: ABG BASE EXCESS 6.4 MMOL/L (-2.5-2.5); ABG OXYGEN SATURATION 98 % (94-100); ABG PCO2 48 MMHG (35-45); ABG PH 7.42 (7.37-7.43); ABG PO2 182 MMHG (79-93); ABG TCO2 32.6 MMOL/L (21.0-31.0)
[2018-06-13 03:18] LABS: ALLENS TEST POSITIVE; INSPIRED O2 50% BIPAP; VENTILATOR NO
[2018-06-13] MEDS ORDERED: NON-FORMULARY MEDICATION 1 EA EA (Morphine Sulfate (Morphine Sulfate ER) 60 MG) PO SCH (04:00)
[2018-06-13 04:08] LABS: BASOPHILS % (AUTO) 0 % (0-10); EOSINOPHILS % (AUTO) 0 % (0-10); HEMATOCRIT 33 % (40-54); HEMOGLOBIN 10.8 G/DL (13.3-17.7); LYMPHOCYTES # (AUTO) 0.4 X 10^3 (1.0-4.0); LYMPHOCYTES % (AUTO) 3 % (12-44); MEAN CORPUSCULAR HEMOGLOBIN 30 PG (25-34); MEAN CORPUSCULAR HGB CONC 33 G/DL (32-36); MEAN CORPUSCULAR VOLUME 93 FL (80-99); MEAN PLATELET VOLUME 9.5 FL (7.4-10.4); MONOCYTES # (AUTO) 0.4 X 10^3 (0.0-1.0); MONOCYTES % (AUTO) 3 % (0-12); NEUTROPHILS # (AUTO) 10.2 X 10^3 (1.8-7.8); NEUTROPHILS % (AUTO) 93 % (42-75); PLATELET COUNT 232 10^3/uL (130-400); RED CELL DISTRIBUTION WIDTH 14.9 % (10.0-14.5); WHITE BLOOD COUNT 10.9 10^3/uL (4.3-11.0)
[2018-06-13 04:26] LABS: ALANINE AMINOTRANSFERASE 48 U/L (0-55); ALBUMIN 3.7 GM/DL (3.2-4.5); ALKALINE PHOSPHATASE 52 U/L (40-136); BILIRUBIN,TOTAL 0.3 MG/DL (0.1-1.0); BUN/CREATININE RATIO 17; CALCIUM 8.4 MG/DL (8.5-10.1); CARBON DIOXIDE 29 MMOL/L (21-32); CHLORIDE 98 MMOL/L (98-107); CREATININE SERUM 0.88 MG/DL (0.60-1.30); GFR ESTIMATED > 60; GLUCOSE 161 MG/DL (70-105); MAGNESIUM 1.9 MG/DL (1.8-2.4); PHOSPHORUS 2.2 MG/DL (2.3-4.7); POTASSIUM 4.2 MMOL/L (3.6-5.0); SODIUM 137 MMOL/L (135-145); TOTAL PROTEIN 6.6 GM/DL (6.4-8.2)
[2018-06-13] MEDS: UMECLIDINIUM BROMIDE (INCRUSE ELLIPTA) 7'S IH SCH (06:17)
[2018-06-13] MEDS: RT-ADVAIR HFA 115/21 MCG PER PUFF IH SCH (06:17)
[2018-06-13] MEDS: PANTOPRAZOLE 20 MG TABLET (PROTONIX) PO SCH (06:34)
[2018-06-13] MEDS: methylPREDNISolone 40 MG/ML (Solu-MEDROL) VIAL IV SCH ×4 (06:34→23:55)
--- NOTE | 2018-06-13 06:36 | Diagnostic Imaging Report ---
Indication: Respiratory failure Portable chest 4:17 AM There is some metal shrapnel projecting over the left hemithorax unchanged from prior studies. There are emphysematous changes in the lungs. There are no infiltrates, effusions or pneumothoraces. Impression: COPD. No acute abnormality seen. Dictated by: Dictated on workstation # [id number]
[2018-06-13] MEDS: HYDROcodone/APAP 10 MG/325 MG (LORTAB) TAB PO PRN ×3 (06:41→15:32)
[2018-06-13] MEDS: LORATADINE (CLARITIN) 10 MG TAB PO SCH (08:27)
[2018-06-13] MEDS: BACLOFEN 10 MG (LIORESAL) TAB PO SCH ×2 (08:27→20:28)
[2018-06-13 08:34] VITALS: BP 157/74
--- NOTE | 2018-06-13 08:54 | Pulmonary Progress Note ---
Subjective Time Seen by a Provider: 08:54 Subjective/Events-last exam PT is doing worse today. He is getting very SOB with even a little exertion. He is currently on BiPAP with accessory muscle use. ABG is pending Sepsis Event Evaluation Height, Weight, BMI Height: 5'8.00" Weight: 208lbs. 0.0oz. 94.261614mh; 31.2 BMI Method:Stated Focused Exam Lactate Level 06/11/18 17:22: Lactic Acid Level 0.80 Exam Exam Vital Signs Date Time Temp Pulse Resp B/P (MAP) Pulse Ox O2 Delivery O2 Flow Rate FiO2 06/13/18 08:34 98.5 107 22 157/74 (101) 93 Vapotherm 35.00 35.00 06/13/18 06:20 96 Vapotherm 35.00 35 06/13/18 05:00 122 22 97 50.00 06/13/18 03:07 97.0 100 22 140/78 (98) 96 High Flow N/C 6.00 06/13/18 01:10 100 24 98 50.00 06/12/18 23:30 99.0 100 24 146/74 (98) 99 NIV Bilevel 06/12/18 22:09 28 98 50.00 06/12/18 21:50 94 High Flow N/C 5.00 06/12/18 20:00 99.6 120 24 140/86 (104) 95 High Flow N/C 6.00 06/12/18 20:00 High Flow N/C 6.00 06/12/18 15:25 98.6 108 21 116/68 (84) 96 High Flow N/C 6.00 06/12/18 14:47 95 High Flow N/C 6.00 06/12/18 12:00 97.2 06/12/18 10:50 97.2 112 22 120/62 (81) 97 High Flow N/C 8.00 06/12/18 10:38 96 High Flow N/C 6.00 I & O 06/13/18 07:00 Intake Total 1920 ml Output Total 850 ml Balance 1070 ml Height & Weight Height: 5'8.00" Weight: 208lbs. 0.0oz. 94.868663fj; 31.2 BMI Method:Stated General Appearance: WD/WN, Anxious, Chronically ill, Moderate Distress, Obese HEENT: Normal ENT Inspection, Pharynx Normal Neck: Full Range of Motion, Non Tender, Supple Respiratory: Chest Non Tender, Decreased Breath Sounds, Expiration, Wheezing Cardiovascular: Regular Rate, Rhythm, No Edema Capillary Refill: Less Than 3 Seconds Gastrointestinal: normal bowel sounds, non tender, soft Extremity: Normal Capillary Refill, Normal Inspection Neurologic/Psychiatric: Alert, Oriented x3, No Motor/Sensory Deficits, Normal Mood/Affect Skin: Normal Color, Warm/Dry Lymphatic: No Adenopathy Results Lab Laboratory Tests 06/11/18 17:22 06/11/18 20:16 06/12/18 03:15 06/12/18 17:15 06/13/18 03:55 Assessment/Plan Assessment/Plan Acute on chronic respiratory failure -Pt is currently on BiPAP secondary to worsening SOB -Check stat ABG -Pt already has a home vent to mask Very severe oxygen dependent COPD with AE -Solumedrol -SVNS -Oxygen Hyperkalemia- now resolved Debility Hypophos -replace EDGARDO THORNTON DO Jun 13, 2018 08:54
[2018-06-13] MEDS ORDERED: OMEPRAZOLE 20 MG (PriLOSEC) CAP NON-FORMULARY PO SCH (09:00)
[2018-06-13] MEDS ORDERED: PROMETHAZINE 25 MG (PHENERGAN) TAB PO SCH (09:00)
[2018-06-13] MEDS ORDERED: NON-FORMULARY MEDICATION 1 EA EA (Fluticasone/Vilanterol (Breo Ellipta 100-25 Mcg INH) 1 P IH SCH (09:00)
[2018-06-13] MEDS ORDERED: NON-FORMULARY MEDICATION 1 EA EA (Cetirizine HCl (Zyrtec) 10 MG) PO SCH (09:00)
--- NOTE | 2018-06-13 09:13 | Progress Note-Hospitalist ---
Subjective HPI/CC On Admission Date Seen by Provider: Jun 13, 2018 Time Seen by Provider: 09:30 CC: Dyspnea HPI: Chief complaint: Dyspnea HPI: This is a 57yoWM directly admitted from Dr. Acevedo yesterday due to shortness of breath. Pt had multiple upper respiratory illnesses. Pt was placed on steroids at [facility] and failed that, so now he meets criteria for inpatient stay and likely for vent to mask. Weaning oxygen now since transferred from ICU Will hep lock IV fluid and stop ced inhibitor that retains potassium. He does use CPAP and oxygen 20/11 and he stopped smoking in 2011. Reviewed each one of his meds and restarted most. Subjective/Events-last exam Worsened dyspnea this morning so I gave Lasix 40mg IVP due to overload since had been on IVF and a little overloaded ABG checked Conferred with Dr Acevedo still very concerned about his elevated potassium but it is not elevated at this time and certainly not the priority at this time given his respiratory difficulties currently but I assured her that I was holding the ACEi as planned No pain is reported Back on biPAP Review of Systems Pulmonary: Dyspnea Focused Exam Lactate Level 06/11/18 17:22: Lactic Acid Level 0.80 Objective Exam Vital Signs Vital Signs Date Time Temp Pulse Resp B/P (MAP) Pulse Ox O2 Delivery O2 Flow Rate FiO2 06/13/18 11:25 98.7 110 24 131/60 (83) 98 NIV Bilevel 06/13/18 10:20 50.00 06/13/18 06:20 35 Capillary Refill : Less Than 3 Seconds General Appearance: WD/WN, Severe Distress HEENT: Normal ENT Inspection, Pharynx Normal Neck: Full Range of Motion, Non Tender, Supple Respiratory: Chest Non Tender, Accessory Muscle Use, Decreased Breath Sounds, Expiration, Respiratory Distress, Wheezing Cardiovascular: Regular Rate, Rhythm, No Edema Gastrointestinal: Normal Bowel Sounds, Non Tender, Soft Back: Normal Inspection; No Decreased Range of Motion Extremity: Normal Capillary Refill, Normal Inspection Neurologic/Psychiatric: Alert, Oriented x3, No Motor/Sensory Deficits, Normal Mood/Affect Skin: Normal Color, Warm/Dry Lymphatic: No Adenopathy Results/Procedures Lab Laboratory Tests 06/12/18 17:15 06/13/18 03:55 Patient resulted labs reviewed. Imaging: Reviewed Imaging Films, Reviewed Imaging Report Assessment/Plan Assessment and Plan Assess & Plan/Chief Complaint Assessment: AECOPD CO2 retention Volume overload DC IVF and giving IVP Lasix 40mg Chronic O2 dependency Chronic back pain HTN Hyperkalemia hx holding ACEi Plan: IV steroids IV Lasix BiPAP Home meds Hold ACEi Diagnosis/Problems Diagnosis/Problems (1) Acute respiratory failure Status: Acute Qualifiers: Respiratory failure complication: hypoxia and hypercapnia Qualified Codes: J96.01 - Acute respiratory failure with hypoxia; J96.02 - Acute respiratory failure with hypercapnia (2) COPD with acute exacerbation Status: Acute (3) Hyperkalemia Status: Resolved Resolution Date/Time: 06/13/18 @ 11:53 (4) Hypomagnesemia with secondary hypocalcemia Status: Acute (5) Former smoker Status: Chronic (6) Chronic back pain Status: Chronic Qualifiers: Back pain location: back pain in unspecified location Back pain laterality : unspecified Qualified Codes: M54.9 - Dorsalgia, unspecified; G89.29 - Other chronic pain (7) Hypertension Status: Chronic Qualifiers: Hypertension type: essential hypertension Qualified Codes: I10 - Essential (primary) hypertension (8) GERD without esophagitis Status: Chronic Clinical Quality Measures DVT/VTE Risk/Contraindication: Risk Factor Score Per Nursin RFS Level Per Nursing on Admit: 4+=Very High MADISON BOURNE DO Jun 13, 2018 09:13
[2018-06-13] MEDS ORDERED: SODIUM PHOSPHATE INJ 30 MM in NS (IVPB) 250 ML IV NR (10:16)
[2018-06-13] MEDS ORDERED: FUROSEMIDE 40 MG (LASIX) TAB ONE (10:21)
[2018-06-13] MEDS ORDERED: FUROSEMIDE 40 MG (LASIX) TAB PO ONE (10:30)
[2018-06-13 11:25] VITALS: BP 131/60
[2018-06-13 11:28] LABS: ABG BASE EXCESS 6.6 MMOL/L (-2.5-2.5); ABG OXYGEN SATURATION 98 % (94-100); ABG PCO2 53 MMHG (35-45); ABG PH 7.39 (7.37-7.43); ABG PO2 152 MMHG (79-93); ABG TCO2 33.1 MMOL/L (21.0-31.0)
[2018-06-13 11:29] LABS: ALLENS TEST YES-POS; INSPIRED O2 45% BIPAP; PATIENT TEMP 98.9; VENTILATOR NO
[2018-06-13] MEDS: DOCUSATE SODIUM 100 MG (COLACE) CAP PO SCH (11:35)
[2018-06-13] MEDS ORDERED: predniSONE 10 MG TAB PO SCH (12:00)
--- NOTE | 2018-06-13 12:15 | NUR ---
PATIENT REPORTS THAT HE HAS BEEN TRYING TO PEE AND HE CANNOT. BLADDER SCAN SHOWS [phone] BOURNE NOTIFIED. INSERT CORTES CATH AND CONSULT DR DHAVAL PUENTES NOTIFIED ON CONSULT. FLOMAX ORDERED
[2018-06-13] MEDS ORDERED: LIDOCAINE UROJET 2% GEL 10 ML PKG ONE (12:18)
[2018-06-13 15:39] VITALS: BP 148/91
[2018-06-13 16:36] LABS: BASOPHILS % (AUTO) 0 % (0-10); EOSINOPHILS % (AUTO) 0 % (0-10); HEMATOCRIT 33 % (40-54); HEMOGLOBIN 11.1 G/DL (13.3-17.7); LYMPHOCYTES # (AUTO) 0.4 X 10^3 (1.0-4.0); LYMPHOCYTES % (AUTO) 4 % (12-44); MEAN CORPUSCULAR HEMOGLOBIN 31 PG (25-34); MEAN CORPUSCULAR HGB CONC 33 G/DL (32-36); MEAN CORPUSCULAR VOLUME 92 FL (80-99); MEAN PLATELET VOLUME 9.3 FL (7.4-10.4); MONOCYTES # (AUTO) 0.6 X 10^3 (0.0-1.0); MONOCYTES % (AUTO) 5 % (0-12); NEUTROPHILS # (AUTO) 10.9 X 10^3 (1.8-7.8); NEUTROPHILS % (AUTO) 92 % (42-75); PLATELET COUNT 236 10^3/uL (130-400); RED CELL DISTRIBUTION WIDTH 15.2 % (10.0-14.5); WHITE BLOOD COUNT 11.9 10^3/uL (4.3-11.0)
--- NOTE | 2018-06-13 17:03 | Consultation-Cardiology ---
HPI-Cardiology Cardiology Consultation: Date of Consultation 06/13/18 Time Seen by a Provider: 13:15 Date of Admission Attending Physician Josefa Davison DO Admitting Physician Sammy Andersen MD Consulting Physician DEANA JONES MD, MA, FACP, FACC, [facility] [place], CCDS Physician requesting consult: Dr Davison HPI: Chief Complaint: Reason for consult: Elevated BNP HPI: 57 yo man admitted on 06/11/[address] Li with shortness of breath, hypoxia and hypercarbia. Has chronic shortness of breath, much worse in the past several days. Confused at time of admission (according to ) and now much improved from that standpoint. No cp or palp or syncope or leg swelling. Has gen malaise and weakness Review of Systems-Cardiology Review of Systems Constitutional: malaise, tiredness; No weight loss, No weight gain Eyes: No vision change Ears/Nose/Throat: No ear discharge, No nasal drainage, No recent hearing loss Respiratory: As described under HPI Cardiovascular: As described under HPI Gastrointestinal: No diarrhea, No vomiting Genitourinary: No dysuria, No hematuria, No urine frequency changes Musculoskeletal: back pain (chronic) Skin: No rash, No ulcerations Psychiatric/Neurological: No seizure, No focal weakness Hematologic: No bleeding abnormalities All Other Systems Reviewed Negative Unless Noted: Yes CEW-Inexyo-Fewruh Hx Patient Social History Marrital Status: Employed/Student: retired ([employer]) Alcohol Use: Denies Use Recreational Drug Use: No Smoking Status: Former Smoker (2011) Type Used: Cigarettes 2nd Hand Smoke Exposure: No Physical Abuse Screen: No Sexual Abuse: No Immunizations Up To Date Tetanus Booster (TDap): Unknown Date of Pneumonia Vaccine: Apr 01, 2016 Date of Influenza Vaccine: Feb 13, 2018 Past Medical History PMH As described under Assessment. Family Medical History Family History: Cancer 03 FATHER, Onset:Unknown 03 MOTHER, Onset:Unknown Cataract 03 MOTHER, Onset:Unknown Chest pain 03 MOTHER, Onset:Unknown Congenital heart disease Congestive heart failure 03 MOTHER, Onset:Unknown Family history: Allergy 03 MOTHER, Onset:Unknown Family history: Arthritis 03 FATHER, Onset:Unknown 03 MOTHER Family history: Asthma 03 MOTHER, Onset:Unknown Family history: Breast disease 03 MOTHER, Onset:Unknown Family history: Cardiovascular disease 03 MOTHER, Onset:Unknown Family history: Glaucoma 03 FATHER, Onset:Unknown Family history: Hypertension 03 MOTHER, Onset:Unknown Headache 09 SISTER, Onset:Unknown Heart disease 03 MOTHER, Onset:Unknown History of - respiratory disease 03 MOTHER, Onset:Unknown History of drug abuse 09 SISTER, Onset:Unknown Hypercholesterolemia 03 FATHER, Onset:Unknown 03 MOTHER, Onset:Unknown Malignant neoplasm of lung 03 FATHER, Onset:Unknown Stroke 03 MOTHER, Onset:60 years & older No Family History of: Abdominal aortic aneurysm Justyn's disease Alcoholism Aphasia Cancer of colon Cystic fibrosis Dementia Dysphagia Family history: Alzheimer's disease Family history: Coronary thrombosis Family history: Diabetes mellitus Family history: Gastrointestinal disease Family history: Osteoporosis Family history: Thyroid disorder Hearing loss Hereditary disease History of - anemia History of - disorder Human immunodeficiency virus (HIV) seropositivity Infertile Kidney disease Myocardial infarction Parkinson's disease Prostate cancer Psychotic disorder Seizure disorder Tuberculosis Visual impairment Allergies and Home Medications Allergies Coded Allergies: fentanyl (Verified Allergy, Unknown, SOA, 06/10/16) carisoprodol (Verified Adverse Reaction, Unknown, MEAN, 06/10/16) codeine (Verified Adverse Reaction, Unknown, MEAN, 06/10/16) tramadol (Verified Adverse Reaction, Unknown, FORGETFUL, 06/10/16) Home Medications Albuterol Sulfate 18 Gm Hfa.aer.ad, 2 PUFF INH Q6H PRN for SHORTNESS OF BREATH, (Reported) Albuterol Sulfate 2.5 Mg/3 Ml Vial.neb, 2.5 MG NEB QID PRN for SHORTNESS OF BREATH, (Reported) Aspirin/Acetaminophen/Caffeine 1 Each Tablet, 1 TAB PO DAILY, (Reported) Aspirin/Acetaminophen/Caffeine 1 Each Tablet, 1 TAB PO DAILY PRN for HEADACHE, ( Reported) Baclofen 10 Mg Tablet, 10 MG PO BID, (Reported) Benazepril HCl 20 Mg Tablet, 20 MG PO HS, (Reported) Calcium Carbonate/Vitamin D3 1 Each Tablet, 1 TAB PO BID, (Reported) Cetirizine HCl 10 Mg Tablet, 10 MG PO DAILY, (Reported) Citalopram Hydrobromide 20 Mg Tablet, 20 MG PO DAILY, (Reported) Docusate Sodium 100 Mg Capsule, 100 MG PO 1200, (Reported) Fluticasone/Vilanterol 1 Each Blst.w.dev, 1 PUFF IH DAILY, (Reported) Furosemide 20 Mg Tablet, 20 MG PO DAILY PRN for FLUID RETENTION, (Reported) Gluc 2Kcl/Chondr/Yariel Hy/Hy AC 1 Each Capsule, 1 CAP PO DAILY, (Reported) Guaifenesin 400 Mg Tablet, 800 MG PO TID, (Reported) Hydrocodone/Acetaminophen 1 Each Tablet, 1 TAB PO Q4H PRN for PAIN-MODERATE, ( Reported) Ibuprofen 200 Mg Tablet, 200 MG PO Q6H PRN for PAIN-MILD OR TEMPATURE, (Reported ) Montelukast Sodium 10 Mg Tablet, 10 MG PO HS, (Reported) Morphine Sulfate 60 Mg Tablet.er, 60 MG PO 0400,1600, (Reported) Multivitamin with Minerals 1 Each Tablet, 1 TAB PO DAILY, (Reported) Omeprazole 20 Mg Capsule.dr, 20 MG PO DAILY, (Reported) Potassium Chloride 10 Meq Tab.er.prt, 10 MEQ PO DAILY PRN for LOW POTASSIUM, ( Reported) Promethazine HCl 25 Mg Tablet, 25 MG PO DAILY, (Reported) Tetrahydrozoline HCl 15 Ml Drops, 1-2 DROPS OU TID PRN for DRY EYES, (Reported) Turmeric Root Extract 538 Mg Capsule, 1 CAP PO BID, (Reported) Umeclidinium [place] 62.5 Mcg Blst.w.dev, 1 PUFF INH DAILY, (Reported) Patient Home Medication List Home Medication List Reviewed: Yes Physical Exam-Cardiology Physical Exam Vital Signs/I&O 06/13/18 06/13/18 06/13/18 06/13/18 05:00 06:20 08:00 08:34 Temp 98.5 Pulse 122 107 Resp 22 22 B/P (MAP) 157/74 (101) Pulse Ox 97 96 93 O2 Delivery Vapotherm Vapotherm Vapotherm O2 Flow Rate 50.00 35.00 35.00 35.00 35.00 FiO2 35 35 06/13/18 06/13/18 06/13/18 06/13/18 10:20 11:25 13:45 15:39 Temp 98.7 98.5 Pulse 162 110 108 95 Resp 36 24 23 B/P (MAP) 131/60 (83) 148/91 (110) Pulse Ox 97 98 97 O2 Delivery NIV Bilevel NIV Bilevel O2 Flow Rate 50.00 06/13/18 16:02 Pulse 105 Resp 26 Pulse Ox 98 O2 Flow Rate 45.00 06/13/18 00:00 Intake Total 920 ml Balance 920 ml Capillary Refill : Less Than 3 Seconds Constitutional: AAO x 3, well-developed, well-nourished HEENT: EOMI, hearing is well preserved; No xanthelasmas are seen Neck: carotid pulses are 2 + bilaterally, with good upstrokes Respiratory: No accessory muscle use; other (fair bilat air entry, prolonged exp, scattered rhonchi) Cardiovascular: regular rate-rhythm, S1 and S2, systolic murmur (soft JOE at card base) Gastrointestinal: No tender; distended; No guarding, No rebound; audible bowel sounds Extremities: No clubbing, No cyanosis, No significant edema Neurologic/Psychiatric: oriented x 3, grossly intact, power is 5/5 both on sides Skin: No rash on exposed areas, No ulcerations on exposed areas Data Review Labs Laboratory Tests 06/12/18 17:15: White Blood Count 8.9, Red Blood Count 3.54L, Hemoglobin 10.7L, Hematocrit 33L, Mean Corpuscular Volume 93, Mean Corpuscular Hemoglobin 30, Mean Corpuscular Hemoglobin Concent 33, Red Cell Distribution Width 15.0H, Platelet Count 238, Mean Platelet Volume 9.1, Neutrophils (%) (Auto) 93H, Lymphocytes (%) (Auto) 4L , Monocytes (%) (Auto) 3, Eosinophils (%) (Auto) 0, Basophils (%) (Auto) 0, Neutrophils # (Auto) 8.3H, Lymphocytes # (Auto) 0.3L, Monocytes # (Auto) 0.3, Eosinophils # (Auto) 0.0, Basophils # (Auto) 0.0 06/13/18 03:05: Blood Gas Puncture Site R RADIAL, Blood Gas Patient Temperature 97.0, Arterial Blood pH 7.42, Arterial Blood Partial Pressure CO2 48H, Arterial Blood Partial Pressure O2 182H, Arterial Blood HCO3 31H, Arterial Blood Total CO2 32.6H, Arterial Blood Oxygen Saturation 98, Arterial Blood Base Excess 6.4H, Jeff Test POSITIVE, Blood Gas Ventilator Setting NO, Blood Gas Inspired Oxygen 50% BIPAP 06/13/18 03:55: White Blood Count 10.9, Red Blood Count 3.58L, Hemoglobin 10.8L, Hematocrit 33L , Mean Corpuscular Volume 93, Mean Corpuscular Hemoglobin 30, Mean Corpuscular Hemoglobin Concent 33, Red Cell Distribution Width 14.9H, Platelet Count 232, Mean Platelet Volume 9.5, Neutrophils (%) (Auto) 93H, Lymphocytes (%) (Auto) 3L , Monocytes (%) (Auto) 3, Eosinophils (%) (Auto) 0, Basophils (%) (Auto) 0, Neutrophils # (Auto) 10.2H, Lymphocytes # (Auto) 0.4L, Monocytes # (Auto) 0.4, Eosinophils # (Auto) 0.0, Basophils # (Auto) 0.0, Sodium Level 137, Potassium Level 4.2, Chloride Level 98, Carbon Dioxide Level 29, Anion Gap 10, Blood Urea Nitrogen 15, Creatinine 0.88, Estimat Glomerular Filtration Rate > 60, BUN/ Creatinine Ratio 17, Glucose Level 161H, Calcium Level 8.4L, Corrected Calcium 8.6, Phosphorus Level 2.2L, Magnesium Level 1.9, Total Bilirubin 0.3, Aspartate Amino Transf (AST/SGOT) 63H, Alanine Aminotransferase (ALT/SGPT) 48, Alkaline Phosphatase 52, B-Type Natriuretic Peptide 351.5H, Total Protein 6.6, Albumin 3.7 06/13/18 11:21: Blood Gas Puncture Site L RAD, Blood Gas Patient Temperature 98.9, Arterial Blood pH 7.39, Arterial Blood Partial Pressure CO2 53H, Arterial Blood Partial Pressure O2 152H, Arterial Blood HCO3 31H, Arterial Blood Total CO2 33.1H, Arterial Blood Oxygen Saturation 98, Arterial Blood Base Excess 6.6H, Jeff Test YES-POS, Blood Gas Ventilator Setting NO, Blood Gas Inspired Oxygen 45% BIPAP 06/13/18 16:30: White Blood Count 11.9H, Red Blood Count 3.63L, Hemoglobin 11.1L, Hematocrit 33L , Mean Corpuscular Volume 92, Mean Corpuscular Hemoglobin 31, Mean Corpuscular Hemoglobin Concent 33, Red Cell Distribution Width 15.2H, Platelet Count 236, Mean Platelet Volume 9.3, Neutrophils (%) (Auto) 92H, Lymphocytes (%) (Auto) 4L , Monocytes (%) (Auto) 5, Eosinophils (%) (Auto) 0, Basophils (%) (Auto) 0, Neutrophils # (Auto) 10.9H, Lymphocytes # (Auto) 0.4L, Monocytes # (Auto) 0.6, Eosinophils # (Auto) 0.0, Basophils # (Auto) 0.0 Microbiology 06/11/18 Blood Culture - Preliminary, Resulted No growth 06/12/18 Gram Stain - Final, Resulted 06/12/18 Sputum Culture, Resulted Pending Laboratory Tests 06/11/18 17:22 06/11/18 20:16 06/12/18 03:15 06/12/18 17:15 06/13/18 03:55 06/13/18 16:30 A/P-Cardiology Assessment/Admission Diagnosis Type 2 acute resp failure due to ac exac of COPD Quit tobacco use in or around 2007 Obesity (BMI approx 32) with obesity-hypovent Hyperglycemia: DM II vs steroid use Mild, acute diastolic CHF Echo on 06/13/18: LVEF 55-60%, PASP 30 mmHg H/o hyperkalemia when on AZ-inhibitors Hypertension Discussion and Recomendations * Treat hypertension with bb * Avoid AZ-inhibitor / ARB * Diuretics as needed * Monitor labs * I had a detailed discussion with him and his and answered CV-related questions Clinical Quality Measures DVT/VTE Risk/Contraindication: Risk Factor Score Per Nursin RFS Level Per Nursing on Admit: 4+=Very High DEANA JONES MD FACP FAC CCDS Jun 13, 2018 17:03
[2018-06-13] MEDS: TAMSULOSIN 0.4 MG (FLOMAX) CAP PO SCH (17:13)
[2018-06-13] MEDS: ENOXAPARIN 40 MG/0.4 ML (LOVENOX) SYR SC SCH (17:13)
[2018-06-13 19:16] VITALS: BP 147/87
[2018-06-13] MEDS: PROMETHAZINE 25 MG (PHENERGAN) TAB PO SCH (20:27)
[2018-06-13] MEDS: MONTELUKAST 10 MG (SINGULAIR) TAB PO SCH (20:27)
[2018-06-13] MEDS: MUCUS RELIEF 400 MG PO SCH (20:28)
[2018-06-13 23:01] VITALS: BP 142/87
[2018-06-14] MEDS: RT-ALBUTEROL/IPRATROPIUM 3 ML (DUONEB) VIAL IH SCH ×6 (02:49→22:37)
[2018-06-14] MEDS: morphine ER 30 MG (MS CONTIN) TAB PO SCH ×2 (03:58→16:44)
[2018-06-14 04:02] LABS: BASOPHILS % (AUTO) 0 % (0-10); EOSINOPHILS % (AUTO) 0 % (0-10); HEMATOCRIT 34 % (40-54); LYMPHOCYTES # (AUTO) 0.6 X 10^3 (1.0-4.0); LYMPHOCYTES % (AUTO) 4 % (12-44); MEAN CORPUSCULAR HEMOGLOBIN 30 PG (25-34); MEAN CORPUSCULAR HGB CONC 32 G/DL (32-36); MEAN CORPUSCULAR VOLUME 92 FL (80-99); MEAN PLATELET VOLUME 9.7 FL (7.4-10.4); MONOCYTES # (AUTO) 0.7 X 10^3 (0.0-1.0); MONOCYTES % (AUTO) 5 % (0-12); NEUTROPHILS # (AUTO) 13.1 X 10^3 (1.8-7.8); NEUTROPHILS % (AUTO) 91 % (42-75); PLATELET COUNT 223 10^3/uL (130-400); RED CELL DISTRIBUTION WIDTH 15.1 % (10.0-14.5); WHITE BLOOD COUNT 14.4 10^3/uL (4.3-11.0)
[2018-06-14 04:06] VITALS: BP 143/80
[2018-06-14 04:21] LABS: ALANINE AMINOTRANSFERASE 60 U/L (0-55); ALBUMIN 3.7 GM/DL (3.2-4.5); ALKALINE PHOSPHATASE 50 U/L (40-136); BILIRUBIN,TOTAL 0.4 MG/DL (0.1-1.0); BUN/CREATININE RATIO 18; CALCIUM 8.5 MG/DL (8.5-10.1); CARBON DIOXIDE 30 MMOL/L (21-32); CHLORIDE 97 MMOL/L (98-107); CREATININE SERUM 0.82 MG/DL (0.60-1.30); GFR ESTIMATED > 60; GLUCOSE 160 MG/DL (70-105); MAGNESIUM 1.9 MG/DL (1.8-2.4); PHOSPHORUS 2.8 MG/DL (2.3-4.7); POTASSIUM 4.1 MMOL/L (3.6-5.0); SODIUM 139 MMOL/L (135-145)
[2018-06-14 05:05] LABS: TOTAL PROTEIN 6.7 GM/DL (6.4-8.2)
[2018-06-14] MEDS: methylPREDNISolone 40 MG/ML (Solu-MEDROL) VIAL IV SCH ×3 (06:41→19:04)
[2018-06-14] MEDS: PANTOPRAZOLE 20 MG TABLET (PROTONIX) PO SCH (06:41)
[2018-06-14] MEDS: UMECLIDINIUM BROMIDE (INCRUSE ELLIPTA) 7'S IH SCH (07:03)
[2018-06-14] MEDS: RT-ADVAIR HFA 115/21 MCG PER PUFF IH SCH ×2 (07:03→19:16)
--- NOTE | 2018-06-14 07:16 | Pulmonary Progress Note ---
Subjective Time Seen by a Provider: 07:16 Subjective/Events-last exam Pt is still currently on Vapotherm. Sepsis Event Evaluation Height, Weight, BMI Height: 5'8.00" Weight: 210lbs. 0.0oz. 95.735011ch; 31.2 BMI Method:Stated Focused Exam Lactate Level 06/11/18 17:22: Lactic Acid Level 0.80 Exam Exam Vital Signs Date Time Temp Pulse Resp B/P (MAP) Pulse Ox O2 Delivery O2 Flow Rate FiO2 06/14/18 07:01 93 Vapotherm 30.00 35 06/14/18 04:06 99.0 95 22 143/80 (101) 95 Vapotherm 35.00 30.00 06/14/18 02:49 96 Vapotherm 35.00 40 06/14/18 01:00 81 06/14/18 00:35 45.00 06/13/18 23:35 109 16 96 45.00 06/13/18 23:01 98.8 87 22 142/87 (105) 95 Vapotherm 06/13/18 22:48 95 Vapotherm 35.00 50 06/13/18 20:40 Vapotherm 35.00 35 06/13/18 19:31 94 Vapotherm 30.00 50 06/13/18 19:16 99.1 88 23 147/87 (107) 95 Vapotherm 06/13/18 19:02 59 18 97 45.00 06/13/18 19:00 100 06/13/18 16:02 105 26 98 45.00 06/13/18 15:39 98.5 95 23 148/91 (110) 97 NIV Bilevel 06/13/18 13:45 108 06/13/18 11:25 98.7 110 24 131/60 (83) 98 NIV Bilevel 06/13/18 10:20 162 36 97 50.00 06/13/18 08:34 98.5 107 22 157/74 (101) 93 Vapotherm 35.00 35.00 06/13/18 08:00 Vapotherm 35.00 35 I & O 06/14/18 07:00 Intake Total 2285 ml Output Total 3400 ml Balance -1115 ml Height & Weight Height: 5'8.00" Weight: 210lbs. 0.0oz. 95.633734je; 31.2 BMI Method:Stated General Appearance: WD/WN, Moderate Distress HEENT: Normal ENT Inspection, Pharynx Normal Neck: Full Range of Motion, Non Tender, Supple Respiratory: Chest Non Tender, Accessory Muscle Use, Decreased Breath Sounds, Expiration, Respiratory Distress, Wheezing Cardiovascular: Regular Rate, Rhythm, No Edema Capillary Refill: Less Than 3 Seconds Gastrointestinal: normal bowel sounds, non tender, soft Extremity: Normal Capillary Refill, Normal Inspection Neurologic/Psychiatric: Alert, Oriented x3, No Motor/Sensory Deficits, Normal Mood/Affect Skin: Normal Color, Warm/Dry Lymphatic: No Adenopathy Results Lab Laboratory Tests 06/12/18 17:15 06/13/18 03:55 06/13/18 16:30 06/14/18 03:50 Assessment/Plan Assessment/Plan Acute on chronic respiratory failure -Pt is currently on Vapotherm -Trial on regular NC -Give Lasix -Pt already has a home vent to mask Very severe oxygen dependent COPD with AE -Solumedrol -SVNS -Oxygen Debility EDGARDO THORNTON DO Jun 14, 2018 07:16
[2018-06-14 08:00] VITALS: BP 134/84
[2018-06-14] MEDS ORDERED: PATIENT MAY USE OWN MEDS, ALL MC SCH (08:15)
[2018-06-14] MEDS: MUCUS RELIEF 400 MG PO SCH ×3 (09:03→20:32)
[2018-06-14] MEDS: BACLOFEN 10 MG (LIORESAL) TAB PO SCH ×2 (09:04→20:31)
[2018-06-14] MEDS: CAFFEINE PO SCH (09:04)
[2018-06-14] MEDS: ASPIRIN PO SCH (09:04)
[2018-06-14] MEDS: ACETAMINOPHEN PO SCH (09:04)
[2018-06-14] MEDS: LORATADINE (CLARITIN) 10 MG TAB PO SCH (09:05)
[2018-06-14] MEDS: FUROSEMIDE 40 MG/4 ML INJ (LASIX) IVP SCH (09:05)
--- NOTE | 2018-06-14 09:49 | Progress Note-Cardiology ---
Cardiology SOAP Progress Note Subjective: Shortness of breath somewhat better today, but he is not back to his usual baseline No cp or palp or syncope Objective: I&O/Vital Signs 06/13/18 06/13/18 06/13/18 06/14/18 22:48 23:01 23:35 00:35 Temp 98.8 Pulse 87 109 Resp 22 16 B/P (MAP) 142/87 (105) Pulse Ox 95 95 96 O2 Delivery Vapotherm Vapotherm O2 Flow Rate 35.00 45.00 45.00 FiO2 50 06/14/18 06/14/18 06/14/18 06/14/18 01:00 02:49 04:06 07:00 Temp 99.0 Pulse 81 95 99 Resp 22 B/P (MAP) 143/80 (101) Pulse Ox 96 95 O2 Delivery Vapotherm Vapotherm O2 Flow Rate 35.00 35.00 30.00 FiO2 40 06/14/18 06/14/18 06/14/18 07:01 07:07 08:00 Temp 98.2 Pulse 99 Resp 22 B/P (MAP) 134/84 (101) Pulse Ox 93 92 O2 Delivery Vapotherm Vapotherm O2 Flow Rate 30.00 20.00 35.00 20.00 FiO2 35 30 06/14/18 00:00 Intake Total 1735 ml Output Total 2225 ml Balance -490 ml Weight (Pounds): 210 Weight (Ounces): 0.0 Weight (Calculated Kilograms): 95.308907 Constitutional: AAO x 3, well-developed, well-nourished Respiratory: other Cardiovascular: regular rate-rhythm, S1 and S2, systolic murmur Gastrointestional: distended, audible bowel sounds Extremities: No clubbing, No cyanosis, No significant edema Neurologic/Psychiatric: oriented x 3, grossly intact, power is 5/5 both on sides Skin: No rash on exposed areas, No ulcerations on exposed areas Results/Procedures: Labs Laboratory Tests 06/13/18 11:21: Blood Gas Puncture Site L RAD, Blood Gas Patient Temperature 98.9, Arterial Blood pH 7.39, Arterial Blood Partial Pressure CO2 53H, Arterial Blood Partial Pressure O2 152H, Arterial Blood HCO3 31H, Arterial Blood Total CO2 33.1H, Arterial Blood Oxygen Saturation 98, Arterial Blood Base Excess 6.6H, Jeff Test YES-POS, Blood Gas Ventilator Setting NO, Blood Gas Inspired Oxygen 45% BIPAP 06/13/18 16:30: White Blood Count 11.9H, Red Blood Count 3.63L, Hemoglobin 11.1L, Hematocrit 33L , Mean Corpuscular Volume 92, Mean Corpuscular Hemoglobin 31, Mean Corpuscular Hemoglobin Concent 33, Red Cell Distribution Width 15.2H, Platelet Count 236, Mean Platelet Volume 9.3, Neutrophils (%) (Auto) 92H, Lymphocytes (%) (Auto) 4L , Monocytes (%) (Auto) 5, Eosinophils (%) (Auto) 0, Basophils (%) (Auto) 0, Neutrophils # (Auto) 10.9H, Lymphocytes # (Auto) 0.4L, Monocytes # (Auto) 0.6, Eosinophils # (Auto) 0.0, Basophils # (Auto) 0.0 06/14/18 03:50: White Blood Count 14.4H, Red Blood Count 3.69L, Hemoglobin 11.0L, Hematocrit 34L , Mean Corpuscular Volume 92, Mean Corpuscular Hemoglobin 30, Mean Corpuscular Hemoglobin Concent 32, Red Cell Distribution Width 15.1H, Platelet Count 223, Mean Platelet Volume 9.7, Neutrophils (%) (Auto) 91H, Lymphocytes (%) (Auto) 4L , Monocytes (%) (Auto) 5, Eosinophils (%) (Auto) 0, Basophils (%) (Auto) 0, Neutrophils # (Auto) 13.1H, Lymphocytes # (Auto) 0.6L, Monocytes # (Auto) 0.7, Eosinophils # (Auto) 0.0, Basophils # (Auto) 0.0, Sodium Level 139, Potassium Level 4.1, Chloride Level 97L, Carbon Dioxide Level 30, Anion Gap 12, Blood Urea Nitrogen 15, Creatinine 0.82, Estimat Glomerular Filtration Rate > 60, BUN/ Creatinine Ratio 18, Glucose Level 160H, Calcium Level 8.5, Corrected Calcium 8.7, Phosphorus Level 2.8, Magnesium Level 1.9, Total Bilirubin 0.4, Aspartate Amino Transf (AST/SGOT) 67H, Alanine Aminotransferase (ALT/SGPT) 60H, Alkaline Phosphatase 50, Total Protein 6.7, Albumin 3.7 Microbiology 06/11/18 Blood Culture - Preliminary, Resulted No growth 06/12/18 Gram Stain - Final, Resulted 06/12/18 Sputum Culture, Resulted Pending Laboratory Tests 06/12/18 17:15 06/13/18 03:55 06/13/18 16:30 06/14/18 03:50 A/P: Assessment: Type 2 acute resp failure due to ac exac of COPD Quit tobacco use in or around 2007 Obesity (BMI approx 32) with obesity-hypovent Hyperglycemia: DM II vs steroid use Mild, acute diastolic CHF Echo on 06/13/18: LVEF 55-60%, PASP 30 mmHg H/o hyperkalemia when on AZ-inhibitors Hypertension Plan: * Continue current regimen * Avoid AZ-inhibitor / ARB * Diuretics as needed * Monitor labs * I again had a detailed discussion with him and his and answered CV- related questions DEANA JONES MD FACP FACC CCDS Jun 14, 2018 09:49
--- NOTE | 2018-06-14 10:52 | Progress Note-Hospitalist ---
MADISON BOURNE DO 06/14/18 1052: Subjective HPI/CC On Admission Date Seen by Provider: Jun 14, 2018 Time Seen by Provider: 10:00 CC: Dyspnea HPI: Chief complaint: Dyspnea HPI: This is a 57yoWM directly admitted from Dr. Acevedo yesterday due to shortness of breath. Pt had multiple upper respiratory illnesses. Pt was placed on steroids at [facility] and failed that, so now he meets criteria for inpatient stay and likely for vent to mask. Weaning oxygen now since transferred from ICU Will hep lock IV fluid and stop ced inhibitor that retains potassium. He does use CPAP and oxygen 20/11 and he stopped smoking in 2011. Reviewed each one of his meds and restarted most. Subjective/Events-last exam Patient doing much better Will have PT/OT get OOB now UOP has been successful in diuresis process No BM yet today Review of Systems Pulmonary: Dyspnea Focused Exam Lactate Level Objective Exam Vital Signs Vital Signs Date Time Temp Pulse Resp B/P (MAP) Pulse Ox O2 Delivery O2 Flow Rate FiO2 06/14/18 16:07 97.8 93 20 155/76 (102) 98 High Flow N/C 10.00 06/14/18 14:29 35 Capillary Refill : Less Than 3 Seconds General Appearance: WD/WN, Chronically ill, Mild Distress HEENT: Normal ENT Inspection, Pharynx Normal Neck: Full Range of Motion, Non Tender, Supple Respiratory: Chest Non Tender, Accessory Muscle Use, Decreased Breath Sounds, Expiration, Wheezing Cardiovascular: Regular Rate, Rhythm, No Edema Gastrointestinal: Normal Bowel Sounds, Non Tender, Soft Back: Normal Inspection; No Decreased Range of Motion Extremity: Normal Capillary Refill, Normal Inspection Neurologic/Psychiatric: Alert, Oriented x3, No Motor/Sensory Deficits, Normal Mood/Affect Skin: Normal Color, Warm/Dry Lymphatic: No Adenopathy Results/Procedures Lab Laboratory Tests 06/14/18 03:50 06/14/18 16:48 Patient resulted labs reviewed. Imaging: Reviewed Imaging Films, Reviewed Imaging Report Assessment/Plan Assessment and Plan Assess & Plan/Chief Complaint Assessment: AECOPD CO2 retention Volume overload due to diastolic heart failure acute Chronic O2 dependency Chronic back pain HTN Hyperkalemia hx holding ACEi Plan: IV steroids IV Lasix BiPAP Home meds Hold ACEi Appreciate Dr Lockhart Diagnosis/Problems Diagnosis/Problems (1) Acute respiratory failure Status: Resolved Qualifiers: Respiratory failure complication: hypoxia and hypercapnia Qualified Codes: J96.01 - Acute respiratory failure with hypoxia; J96.02 - Acute respiratory failure with hypercapnia Resolution Date/Time: 06/14/18 @ 17:34 (2) COPD with acute exacerbation Status: Acute (3) Hyperkalemia Status: Resolved Resolution Date/Time: 06/13/18 @ 11:53 (4) Hypomagnesemia with secondary hypocalcemia Status: Resolved Resolution Date/Time: 06/14/18 @ 17:34 (5) Former smoker Status: Chronic (6) Chronic back pain Status: Chronic Qualifiers: Back pain location: back pain in unspecified location Back pain laterality : unspecified Qualified Codes: M54.9 - Dorsalgia, unspecified; G89.29 - Other chronic pain (7) Hypertension Status: Chronic Qualifiers: Hypertension type: essential hypertension Qualified Codes: I10 - Essential (primary) hypertension (8) GERD without esophagitis Status: Chronic (9) Diastolic heart failure (10) Volume overload Status: Resolved Qualifiers: Hypervolemia type: unspecified Qualified Codes: E87.70 - Fluid overload, unspecified Resolution Date/Time: 06/14/18 @ 17:34 (11) Elevated brain natriuretic peptide (BNP) level Status: Acute (12) Diuresis Status: Acute Clinical Quality Measures DVT/VTE Risk/Contraindication: Risk Factor Score Per Nursin RFS Level Per Nursing on Admit: 4+=Very High SHAINA LONG MEDICAL STUDENT 06/14/18 1311: Subjective HPI/CC On Admission CC: dsypnea HPI: This is 57 yo white male who presented to the hospital complaining of cough and SOB consistent with previous COPD exacerbations. He has COPD/ emphysema. He is usually on 4.5/5L of O2 at home. Dr. Acevedo is his pre sales technical consultant. Dr. Andersen is is PCP. He was initially placed in ICU for telemetry and placed on high flow O2. His breathing improved with IV steroids and nebulizer treatments. This morning he states his breathing is much easier. Denies pain or fever. He quit smoking in February 2011, "as soon as he was diagnosed with emphysema" says his . Subjective/Events-last exam Pt reports he is having much easier time breathing. O2 saturation remained above 95% on vapotherm all night, he did not require BiPAP Denies CP, f/c, abdominal pain Review of Systems General: No Chills HEENT: No Head Aches Pulmonary: Dyspnea; No Cough, No Pleuritic Chest Pain Cardiovascular: No: Chest Pain, Edema Gastrointestinal: No: Abdominal Pain Objective Exam General Appearance: WD/WN, Mild Distress HEENT: Normal ENT Inspection, Pharynx Normal Neck: Full Range of Motion, Non Tender Respiratory: Chest Non Tender, Accessory Muscle Use, Decreased Breath Sounds, Expiration, Respiratory Distress, Wheezing Cardiovascular: Regular Rate, Rhythm, No Edema Gastrointestinal: Normal Bowel Sounds, Non Tender, Soft Extremity: Normal Capillary Refill Neurologic/Psychiatric: Alert, Oriented x3 Skin: Normal Color, Diaphoresis Assessment/Plan Assessment and Plan Assess & Plan/Chief Complaint Assessment: Acute on chronic respiratory failure Oxygen dependent COPD Hyperkalemia, resolved Hypomagnesemia, hypocalcemia, resolved Chronic pain HTN Plan: High flow oxygen support IV steroids, duonebs Hold ACEi Monitor electrolytes PT/OT Diagnosis/Problems Diagnosis/Problems (1) Acute respiratory failure Status: Resolved Qualifiers: Respiratory failure complication: hypoxia and hypercapnia Qualified Codes: J96.01 - Acute respiratory failure with hypoxia; J96.02 - Acute respiratory failure with hypercapnia Resolution Date/Time: 06/14/18 @ 17:34 (2) Hypertension Status: Chronic Qualifiers: Hypertension type: essential hypertension Qualified Codes: I10 - Essential (primary) hypertension (3) Chronic back pain Status: Chronic Qualifiers: Back pain location: back pain in unspecified location Back pain laterality : unspecified Qualified Codes: M54.9 - Dorsalgia, unspecified; G89.29 - Other chronic pain (4) COPD with acute exacerbation Status: Acute (5) Former smoker Status: Chronic MADISON BOURNE DO Jun 14, 2018 10:52 SHAINA LONG MEDICAL STUDENT Jun 14, 2018 13:11
[2018-06-14 12:00] VITALS: BP 145/78
[2018-06-14] MEDS: DOCUSATE SODIUM 100 MG (COLACE) CAP PO SCH (12:57)
[2018-06-14] MEDS: HYDROcodone/APAP 10 MG/325 MG (LORTAB) TAB PO PRN ×3 (13:02→17:04)
--- NOTE | 2018-06-14 15:04 | CONSULTATION REPORT ---
DATE OF SERVICE: 06/14/2018 ATTENDING PHYSICIAN: Dr. Josefa Davison. SUMMARY: After reviewing the patient's record and interviewing him and reviewing all his history and physical and lab work, this is a 57-year-old white male with a COPD exacerbation, who was found to have retention of 600 mL of urine. Catheter was inserted, although the patient does not admit to voiding symptoms, he does admit to nocturia x 3 to 4 at home and some slowing of the stream. He was not on any medications and we will start him on Flomax 0.4 mg daily. PHYSICAL EXAMINATION: Deferred at the time of cystoscopy. IMPRESSION: Urinary retention with benign prostatic hypertrophy. RECOMMENDATIONS: We will wait 3 days on the Flomax and then give him a trial of voiding later on at the office. He will need workup for BPH and prostatism. This was fully explained to him and his . We will follow with you. Job ID: [id number] DocumentID: [id number] Dictated Date: 06/14/2018 12:46:59 Promotional Model Date: 06/14/2018 15:03:26 Dictated By: KIARA PUENTES MD
[2018-06-14 16:07] VITALS: BP 155/76
[2018-06-14 17:15] LABS: BASOPHILS % (AUTO) 0 % (0-10); EOSINOPHILS % (AUTO) 0 % (0-10); HEMATOCRIT 36 % (40-54); HEMOGLOBIN 11.6 G/DL (13.3-17.7); LYMPHOCYTES # (AUTO) 0.4 X 10^3 (1.0-4.0); LYMPHOCYTES % (AUTO) 3 % (12-44); MEAN CORPUSCULAR HEMOGLOBIN 30 PG (25-34); MEAN CORPUSCULAR HGB CONC 32 G/DL (32-36); MEAN CORPUSCULAR VOLUME 92 FL (80-99); MEAN PLATELET VOLUME 10.4 FL (7.4-10.4); MONOCYTES # (AUTO) 0.8 X 10^3 (0.0-1.0); MONOCYTES % (AUTO) 6 % (0-12); NEUTROPHILS # (AUTO) 12.7 X 10^3 (1.8-7.8); NEUTROPHILS % (AUTO) 91 % (42-75); PLATELET COUNT 257 10^3/uL (130-400); RED CELL DISTRIBUTION WIDTH 14.9 % (10.0-14.5); WHITE BLOOD COUNT 13.9 10^3/uL (4.3-11.0)
[2018-06-14] MEDS: TAMSULOSIN 0.4 MG (FLOMAX) CAP PO SCH (19:05)
[2018-06-14] MEDS: ENOXAPARIN 40 MG/0.4 ML (LOVENOX) SYR SC SCH (19:05)
[2018-06-14] MEDS: PROMETHAZINE 25 MG (PHENERGAN) TAB PO SCH (20:31)
[2018-06-14] MEDS: MONTELUKAST 10 MG (SINGULAIR) TAB PO SCH (20:31)
[2018-06-14 20:36] VITALS: BP 156/79
[2018-06-15] VITALS (7 sets, daily range): BP systolic 133–160; BP diastolic 77–97
[2018-06-15] MEDS: methylPREDNISolone 40 MG/ML (Solu-MEDROL) VIAL IV SCH ×2 (00:13→06:20)
[2018-06-15] MEDS: RT-ALBUTEROL/IPRATROPIUM 3 ML (DUONEB) VIAL IH SCH ×5 (01:46→18:36)
[2018-06-15] MEDS: morphine ER 30 MG (MS CONTIN) TAB PO SCH ×2 (03:42→16:00)
[2018-06-15 04:26] LABS: BASOPHILS % (AUTO) 0 % (0-10); EOSINOPHILS % (AUTO) 0 % (0-10); HEMATOCRIT 35 % (40-54); HEMOGLOBIN 11.6 G/DL (13.3-17.7); LYMPHOCYTES # (AUTO) 0.6 X 10^3 (1.0-4.0); LYMPHOCYTES % (AUTO) 5 % (12-44); MEAN CORPUSCULAR HEMOGLOBIN 30 PG (25-34); MEAN CORPUSCULAR HGB CONC 33 G/DL (32-36); MEAN CORPUSCULAR VOLUME 93 FL (80-99); MEAN PLATELET VOLUME 9.7 FL (7.4-10.4); MONOCYTES # (AUTO) 0.6 X 10^3 (0.0-1.0); MONOCYTES % (AUTO) 5 % (0-12); NEUTROPHILS # (AUTO) 10.9 X 10^3 (1.8-7.8); NEUTROPHILS % (AUTO) 90 % (42-75); PLATELET COUNT 242 10^3/uL (130-400); RED CELL DISTRIBUTION WIDTH 15.4 % (10.0-14.5)
[2018-06-15 05:36] LABS: ALANINE AMINOTRANSFERASE 64 U/L (0-55); ALBUMIN 3.9 GM/DL (3.2-4.5); ALKALINE PHOSPHATASE 52 U/L (40-136); BILIRUBIN,TOTAL 0.5 MG/DL (0.1-1.0); BUN/CREATININE RATIO 20; CARBON DIOXIDE 30 MMOL/L (21-32); CHLORIDE 96 MMOL/L (98-107); CREATININE SERUM 0.86 MG/DL (0.60-1.30); GFR ESTIMATED > 60; GLUCOSE 159 MG/DL (70-105); MAGNESIUM 2.1 MG/DL (1.8-2.4); POTASSIUM 4.2 MMOL/L (3.6-5.0); SODIUM 138 MMOL/L (135-145); TOTAL PROTEIN 6.8 GM/DL (6.4-8.2)
[2018-06-15] MEDS: PANTOPRAZOLE 20 MG TABLET (PROTONIX) PO SCH (06:20)
[2018-06-15] MEDS: UMECLIDINIUM BROMIDE (INCRUSE ELLIPTA) 7'S IH SCH (07:37)
[2018-06-15] MEDS: RT-ADVAIR HFA 115/21 MCG PER PUFF IH SCH (07:37)
--- NOTE | 2018-06-15 08:01 | Pulmonary Progress Note ---
Subjective Time Seen by a Provider: 08:00 Subjective/Events-last exam PT still complains of SOB deshaun with exertion. Sepsis Event Evaluation Height, Weight, BMI Height: 5'8.00" Weight: 206lbs. 0.0oz. 93.667663uf; 31.2 BMI Method:Stated Exam Exam Vital Signs Date Time Temp Pulse Resp B/P (MAP) Pulse Ox O2 Delivery O2 Flow Rate FiO2 06/15/18 07:46 86 06/15/18 07:37 93 High Flow N/C 5.00 06/15/18 04:27 98.7 109 22 143/77 (99) 95 High Flow N/C 10.00 06/15/18 01:47 96 High Flow N/C 5.00 06/15/18 01:00 91 06/15/18 00:00 97.4 102 20 136/80 (98) 96 High Flow N/C 10.00 06/14/18 22:40 98 High Flow N/C 10.00 06/14/18 20:36 99.4 101 20 156/79 (104) 98 High Flow N/C 10.00 06/14/18 20:30 High Flow N/C 10.00 06/14/18 19:17 98 High Flow N/C 10.00 06/14/18 19:00 100 06/14/18 16:07 97.8 93 20 155/76 (102) 98 High Flow N/C 10.00 06/14/18 14:29 94 Vapotherm 20.00 35 06/14/18 12:59 105 06/14/18 12:00 98.4 101 20 145/78 (100) 94 Vapotherm 35.00 20.00 06/14/18 11:17 89 Vapotherm 20.00 35 06/14/18 08:15 Vapotherm 30.00 35 06/14/18 08:00 98.2 99 22 134/84 (101) 92 Vapotherm 35.00 20.00 I & O 06/15/18 07:00 Intake Total 1560 ml Output Total 3525 ml Balance -1965 ml Height & Weight Height: 5'8.00" Weight: 206lbs. 0.0oz. 93.388782ad; 31.2 BMI Method:Stated General Appearance: WD/WN, Chronically ill, Mild Distress HEENT: Normal ENT Inspection, Pharynx Normal Neck: Full Range of Motion, Non Tender, Supple Respiratory: Chest Non Tender, Accessory Muscle Use, Decreased Breath Sounds, Expiration, Wheezing Cardiovascular: Regular Rate, Rhythm, No Edema Capillary Refill: Less Than 3 Seconds Gastrointestinal: normal bowel sounds, non tender, soft Extremity: Normal Capillary Refill, Normal Inspection Neurologic/Psychiatric: Alert, Oriented x3, No Motor/Sensory Deficits, Normal Mood/Affect Skin: Normal Color, Warm/Dry Lymphatic: No Adenopathy Results Lab Laboratory Tests 06/13/18 16:30 06/14/18 03:50 06/14/18 16:48 06/15/18 03:55 Assessment/Plan Assessment/Plan Acute on chronic respiratory failure -Pt is currently on Vapotherm -Trial on regular NC -Give Lasix -Pt already has a home vent to mask 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
[2018-06-15 08:20] LABS: ABG OXYGEN SATURATION 89 % (94-100); ABG PCO2 52 MMHG (35-45); ABG PH 7.46 (7.37-7.43); ABG PO2 57 MMHG (79-93); ABG TCO2 38.1 MMOL/L (21.0-31.0)
[2018-06-15 08:21] LABS: ALLENS TEST POSITIVE; INSPIRED O2 5 L; PATIENT TEMP 98.9; VENTILATOR NO
[2018-06-15] MEDS: LORATADINE (CLARITIN) 10 MG TAB PO SCH (09:11)
[2018-06-15] MEDS: HYDROcodone/APAP 10 MG/325 MG (LORTAB) TAB PO PRN ×2 (09:11→13:17)
[2018-06-15] MEDS: BACLOFEN 10 MG (LIORESAL) TAB PO SCH ×2 (09:11→21:40)
[2018-06-15] MEDS: predniSONE 10 MG TAB PO SCH (09:11)
[2018-06-15] MEDS: ACETAMINOPHEN PO SCH (09:12)
[2018-06-15] MEDS: ASPIRIN PO SCH (09:12)
[2018-06-15] MEDS: CAFFEINE PO SCH (09:12)
[2018-06-15] MEDS: MUCUS RELIEF 400 MG PO SCH ×3 (09:12→21:39)
[2018-06-15] MEDS: PIPERACILLIN/TAZOBACTAM (BULK) 4.5 GM in NS (IVPB) 100 ML IV SCH ×2 (09:15→16:00)
[2018-06-15] MEDS: FUROSEMIDE 40 MG/4 ML INJ (LASIX) IVP SCH (09:15)
--- NOTE | 2018-06-15 10:47 | Progress Note-Urology ---
Progress Note-Urology Progress Notes/Assess & Plan Progress/Assessment & Plan TOLERATES FLOMAX WELL. CYSTOSCOPY ON SUNDAY AT BEDSIDE UNDER LOCAL. FULLY EXPLAINED TO HIM Final Diagnosis URINE RETENTION KIARA PUENTES MD Jun 15, 2018 10:47
--- NOTE | 2018-06-15 11:00 | Progress Note-Hospitalist ---
Subjective HPI/CC On Admission Date Seen by Provider: Jun 15, 2018 Time Seen by Provider: 11:15 CC: dsypnea HPI: This is 57 yo white male who presented to the hospital complaining of cough and SOB consistent with previous COPD exacerbations. He has COPD/ emphysema. He is usually on 4.5/5L of O2 at home. Dr. 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 Dr. Andersen is is PCP. He was initially placed in ICU for telemetry and placed on high flow O2. His breathing improved with IV steroids and nebulizer treatments. This morning he states his breathing is much easier. Denies pain or fever. He quit smoking in February 2011, "as soon as he was diagnosed with emphysema" says his . Subjective/Events-last exam Patient much improved today On 5 liters of O2 PT/OT working with patient Getting OOB Review of Systems General: Fatigue Pulmonary: Dyspnea Objective Exam Vital Signs Vital Signs Date Time Temp Pulse Resp B/P (MAP) Pulse Ox O2 Delivery O2 Flow Rate FiO2 06/15/18 18:37 95 High Flow N/C 4.00 06/15/18 15:20 99.2 107 24 158/88 (111) 06/14/18 14:29 35 Capillary Refill : Less Than 3 Seconds General Appearance: No Apparent Distress, WD/WN, Chronically ill, Obese HEENT: Normal ENT Inspection, Pharynx Normal Neck: Full Range of Motion, Non Tender, Supple Respiratory: Chest Non Tender, Accessory Muscle Use, Decreased Breath Sounds, Wheezing Cardiovascular: Regular Rate, Rhythm, No Edema Gastrointestinal: Normal Bowel Sounds, Non Tender, Soft Back: Normal Inspection; No Decreased Range of Motion Extremity: Normal Capillary Refill, Normal Inspection Neurologic/Psychiatric: Alert, Oriented x3, No Motor/Sensory Deficits, Normal Mood/Affect Skin: Normal Color, Warm/Dry Lymphatic: No Adenopathy Results/Procedures Lab Laboratory Tests 06/15/18 03:55 Patient resulted labs reviewed. Imaging: Reviewed Imaging Films, Reviewed Imaging Report Assessment/Plan Assessment and Plan Assess & Plan/Chief Complaint Assessment: AECOPD CO2 retention Volume overload due to diastolic heart failure acute Chronic O2 dependency Chronic back pain HTN Hyperkalemia hx holding ACEi Plan: IV steroids IV Lasix BiPAP Home meds Hold ACEi Appreciate Dr Lockhart Diagnosis/Problems Diagnosis/Problems (1) Acute respiratory failure Status: Resolved Qualifiers: Respiratory failure complication: hypoxia and hypercapnia Qualified Codes: J96.01 - Acute respiratory failure with hypoxia; J96.02 - Acute respiratory failure with hypercapnia Resolution Date/Time: 06/14/18 @ 17:34 (2) COPD with acute exacerbation Status: Acute (3) Hyperkalemia Status: Resolved Resolution Date/Time: 06/13/18 @ 11:53 (4) Hypomagnesemia with secondary hypocalcemia Status: Resolved Resolution Date/Time: 06/14/18 @ 17:34 (5) Former smoker Status: Chronic (6) Chronic back pain Status: Chronic Qualifiers: Back pain location: back pain in unspecified location Back pain laterality : unspecified Qualified Codes: M54.9 - Dorsalgia, unspecified; G89.29 - Other chronic pain (7) Hypertension Status: Chronic Qualifiers: Hypertension type: essential hypertension Qualified Codes: I10 - Essential (primary) hypertension (8) GERD without esophagitis Status: Chronic (9) Diastolic heart failure (10) Volume overload Status: Resolved Qualifiers: Hypervolemia type: unspecified Qualified Codes: E87.70 - Fluid overload, unspecified Resolution Date/Time: 06/14/18 @ 17:34 (11) Elevated brain natriuretic peptide (BNP) level Status: Acute (12) Diuresis Status: Acute Clinical Quality Measures DVT/VTE Risk/Contraindication: Risk Factor Score Per Nursin RFS Level Per Nursing on Admit: 4+=Very High MADISON BOURNE DO Jun 15, 2018 11:00
--- NOTE | 2018-06-15 11:45 | Physical Therapy Evaluation ---
PT Evaluation-General Medical Diagnosis Admission Date Jun 11, 2018 at 16:00 Height/Weight Height (Feet): 5 Height (Inches): 8.00 Weight (Pounds): 206 Weight (Ounces): 0.0 Precautions Precautions/Isolations: Standard Precautions Weight Bear Status Right Lower Extremity: Right Weight Bearing/Tolerated Left Lower Extremity: Left Weight Bearing/Tolerated Prior/Core FIM Prior Level of Function Therapy Code Descriptions/Definitions Functional [place] Measure: 0=Not Assessed/NA 4=Minimal Assistance 1=Total Assistance 5=Supervision or Setup 2=Maximal Assistance 6=Modified [place] 3=Moderate Assistance 7=Complete [place] Therapy Quality Codes: 6 Independent with activity with or without an assistive device 5 Patient requires set up or clean up by helper. Patient completes activity by themselves 4 Supervision or touching assist (CGA). [place] provide cues , steadying assist 3 The helper provides less than half the effort to complete the activity 2 The helper provides more than half the effort to complete the activity 1 Dependent. The helper does all the effort to complete an activity 7 Patient refused to complete or attempt activity 9 The patient did not perform the activity before the current illness or injury 88 Not attempted due to Medical conditions or safety concerns Functional Abilities and Goals: Independent: Patient completed the activities by him/herself, with or without an assistive device, with no assistance from a helper. Needed Some Help: Patient needed partial assistance from another person to complete activities. Dependent: A helper completed the activities for the patient. Unknown: Not Applicable: PT Evaluation-Current Transfers Therapy Code Descriptions/Definitions Functional [place] Measure: 0=Not Assessed/NA 4=Minimal Assistance 1=Total Assistance 5=Supervision or Setup 2=Maximal Assistance 6=Modified [place] 3=Moderate Assistance 7=Complete [place] PT Plan Time/GCodes Time In: 1130 Time Out: 1148 Total Billed Treatment Time: 18 Total Billed Treatment visit EVM 18 BILL PIERRE PT Jun 15, 2018 11:45
--- NOTE | 2018-06-15 11:57 | Physical Therapy Evaluation ---
PT Evaluation-General Medical Diagnosis Admission Date Jun 11, 2018 at 16:00 Medical Diagnosis: COPD exac Onset Date: Jun 11, 2018 Therapy Diagnosis Therapy Diagnosis: weakness; abn gait Height/Weight Height (Feet): 5 Height (Inches): 8.00 Weight (Pounds): 206 Weight (Ounces): 0.0 Precautions Precautions/Isolations: Standard Precautions Weight Bear Status Right Lower Extremity: Right Weight Bearing/Tolerated Left Lower Extremity: Left Weight Bearing/Tolerated Referral Physician: Saman Reason for Referral: Evaluation/Treatment Medical History Pertinent Medical History: COPD, HTN Current History acute exac of COPD; admitted via ER due to dyspnea Reviewed History: Yes Social History Home: Single Level Current Living Status: Spouse Entry Into Home: Stairs With Railing Prior/Core FIM Prior Level of Function Therapy Code Descriptions/Definitions Functional [place] Measure: 0=Not Assessed/NA 4=Minimal Assistance 1=Total Assistance 5=Supervision or Setup 2=Maximal Assistance 6=Modified [place] 3=Moderate Assistance 7=Complete [place] Therapy Quality Codes: 6 Independent with activity with or without an assistive device 5 Patient requires set up or clean up by helper. Patient completes activity by themselves 4 Supervision or touching assist (CGA). [place] provide cues , steadying assist 3 The helper provides less than half the effort to complete the activity 2 The helper provides more than half the effort to complete the activity 1 Dependent. The helper does all the effort to complete an activity 7 Patient refused to complete or attempt activity 9 The patient did not perform the activity before the current illness or injury 88 Not attempted due to Medical conditions or safety concerns Functional Abilities and Goals: Independent: Patient completed the activities by him/herself, with or without an assistive device, with no assistance from a helper. Needed Some Help: Patient needed partial assistance from another person to complete activities. Dependent: A helper completed the activities for the patient. Unknown: Not Applicable: Bed Mobility: 7 Transfers (B,C,W/C) (FIM): 7 Gait: 7 Pt walks short distances in his home but rarely leaves his home due to difficulty breathing. PT Evaluation-Current Subjective Agrees to PT. Reprots he has been getting up to the commode on his own. Pt/Family Goals home when medically stable Objective Patient Orientation: Person, Place, Time, Situation Problem Solving: Good Attachments: Oxygen, [place] Catheter, IV ROM/Strength ROM Lower Extremities WNL Strength Lower Extremities wFL Integumentary/Posture Integumentary intact Bowel Incontinence: No Bladder Incontinence: [place] Cath Posture normal and symmetrical Neuromuscular (Tone, Coordination, Reflexes) wNL Sensory Vision: Wears Glasses Hearing: Functional Sensation Right Lower Extremit: Intact Sensation Left Lower Extremity: Intact Transfers Therapy Code Descriptions/Definitions Functional [place] Measure: 0=Not Assessed/NA 4=Minimal Assistance 1=Total Assistance 5=Supervision or Setup 2=Maximal Assistance 6=Modified [place] 3=Moderate Assistance 7=Complete [place] Pt is SBA with all transfers and be dmobiltiy; no cues required. Gait Mode of Locomotion: Walk Comments/Gait Description Pt did not walk this visit but was able to stand at EOB and walk in place without AD with SBA. Balance Sitting Static: Good Sitting Dynamic: Good Standing Static: Good Standing Dynamic: Good Assessment/Needs Pt hospitalized due to exac of COPD. He is moving well but would benefit from progression to ambulation. He reports he is up to the commode in his room but has not walked. He will benefit from encouragement to mobilize more to prepare him to return home. Will likely only require 1 additional visit to assess gait and allow hime to be up ad barbara in his room. Rehab Potential: Good PT Nursing Home Goals Blueprinting Machine Operator Goals PT Nursing Home Goals Time Frame: Jun 18, 2018 Transfers (B,C,W/C) (FIM): 7 Gait (FIM): 6 Gait distance (FIM): 3=150 ft PT Plan Problem List Problem List: Activity Tolerance, Functional Strength, Safety, Gait, Transfer Treatment/Plan Treatment Plan: Continue Plan of Care Treatment Plan: Bed Mobility, Education, Functional Activity [place], Functional Strength, Gait, Safety Treatment Duration: Jun 18, 2018 Frequency: 6 times per week Estimated Hrs Per Day: .25 hour per day Patient and/or Family Agrees t: Yes Safety Risks/Education Patient Education: Safety Issues Teaching Recipient: Patient Teaching Methods: Discussion Response to Teaching: Return Demonstration Time/GCodes Time In: 1130 Time Out: 1148 Total Billed Treatment Time: 18 Total Billed Treatment visit EVM 18 BILL PIERRE PT Jun 15, 2018 11:57
[2018-06-15] MEDS: DOCUSATE SODIUM 100 MG (COLACE) CAP PO SCH (13:17)
--- NOTE | 2018-06-15 16:05 | Progress Note-Cardiology ---
Cardiology SOAP Progress Note Subjective: Shortness of breath better No cp or palp or syncope Objective: I&O/Vital Signs 06/15/18 06/15/18 06/15/18 06/15/18 07:37 07:46 08:00 08:25 Temp 98.9 Pulse 86 93 Resp 20 B/P (MAP) 160/97 (118) Pulse Ox 93 96 O2 Delivery High Flow N/C High Flow N/C High Flow N/C O2 Flow Rate 5.00 5.00 5.00 06/15/18 06/15/18 06/15/18 06/15/18 10:58 12:00 12:45 15:15 Temp 98.6 Pulse 109 102 Resp 18 B/P (MAP) 137/86 (103) Pulse Ox 96 94 94 O2 Delivery High Flow N/C High Flow N/C High Flow N/C O2 Flow Rate 5.00 5.00 4.00 06/15/18 00:00 Intake Total 1110 ml Output Total 2125 ml Balance -1015 ml Weight (Pounds): 206 Weight (Ounces): 0.0 Weight (Calculated Kilograms): 93.683489 Constitutional: AAO x 3, well-developed, well-nourished Respiratory: other Cardiovascular: regular rate-rhythm, S1 and S2, systolic murmur Gastrointestional: distended, audible bowel sounds Extremities: No clubbing, No cyanosis, No significant edema Neurologic/Psychiatric: oriented x 3, grossly intact, power is 5/5 both on sides Skin: No rash on exposed areas, No ulcerations on exposed areas Results/Procedures: Labs Laboratory Tests 06/15/18 03:55: White Blood Count 12.0H, Red Blood Count 3.81L, Hemoglobin 11.6L, Hematocrit 35L , Mean Corpuscular Volume 93, Mean Corpuscular Hemoglobin 30, Mean Corpuscular Hemoglobin Concent 33, Red Cell Distribution Width 15.4H, Platelet Count 242, Mean Platelet Volume 9.7, Neutrophils (%) (Auto) 90H, Lymphocytes (%) (Auto) 5L , Monocytes (%) (Auto) 5, Eosinophils (%) (Auto) 0, Basophils (%) (Auto) 0, Neutrophils # (Auto) 10.9H, Lymphocytes # (Auto) 0.6L, Monocytes # (Auto) 0.6, Eosinophils # (Auto) 0.0, Basophils # (Auto) 0.0, Sodium Level 138, Potassium Level 4.2, Chloride Level 96L, Carbon Dioxide Level 30, Anion Gap 12, Blood Urea Nitrogen 17, Creatinine 0.86, Estimat Glomerular Filtration Rate > 60, BUN/ Creatinine Ratio 20, Glucose Level 159H, Calcium Level 9.0, Corrected Calcium 9.1, Magnesium Level 2.1, Total Bilirubin 0.5, Aspartate Amino Transf (AST/SGOT ) 57H, Alanine Aminotransferase (ALT/SGPT) 64H, Alkaline Phosphatase 52, Total Protein 6.8, Albumin 3.9 06/15/18 08:14: Blood Gas Puncture Site RIGHT RADIAL, Blood Gas Patient Temperature 98.9, Arterial Blood pH 7.46H, Arterial Blood Partial Pressure CO2 52H, Arterial Blood Partial Pressure O2 57L, Arterial Blood HCO3 37H, Arterial Blood Total CO2 38.1H, Arterial Blood Oxygen Saturation 89L, Arterial Blood Base Excess 12.0H, Jeff Test POSITIVE, Blood Gas Ventilator Setting NO, Blood Gas Inspired Oxygen 5 L Microbiology 06/11/18 Blood Culture - Preliminary, Resulted No growth 06/12/18 Gram Stain - Final, Resulted 06/12/18 Sputum Culture - Preliminary, Resulted Usual upper respiratory theo Pseudomonas aeruginosa Laboratory Tests 06/14/18 03:50 06/14/18 16:48 06/15/18 03:55 A/P: Assessment: Type 2 acute resp failure due to ac exac of COPD Quit tobacco use in or around 2007 Obesity (BMI approx 32) with obesity-hypovent Hyperglycemia: DM II vs steroid use Mild, acute diastolic CHF Echo on 06/13/18: LVEF 55-60%, PASP 30 mmHg H/o hyperkalemia when on [place]-inhibitors Hypertension Plan: * Continue current regimen * Avoid AZ-inhibitor / ARB * Diuretics as needed * Monitor labs * I again had a detailed discussion with him and his and answered CV- related questions DEANA JONES MD FACP FAC CCDS Jun 15, 2018 16:05
[2018-06-15] MEDS: ENOXAPARIN 40 MG/0.4 ML (LOVENOX) SYR SC SCH (19:18)
[2018-06-15] MEDS: TAMSULOSIN 0.4 MG (FLOMAX) CAP PO SCH (19:18)
[2018-06-15] MEDS: PROMETHAZINE 25 MG (PHENERGAN) TAB PO SCH (21:40)
[2018-06-15] MEDS: MONTELUKAST 10 MG (SINGULAIR) TAB PO SCH (21:40)
[2018-06-16] MEDS: PIPERACILLIN/TAZOBACTAM (BULK) 4.5 GM in NS (IVPB) 100 ML IV SCH ×3 (00:19→16:16)
[2018-06-16] MEDS: RT-ALBUTEROL/IPRATROPIUM 3 ML (DUONEB) VIAL IH SCH ×7 (01:07→23:32)
[2018-06-16] MEDS: morphine ER 30 MG (MS CONTIN) TAB PO SCH ×2 (03:15→16:15)
[2018-06-16 04:00] VITALS: BP 138/80
[2018-06-16 05:24] LABS: ALANINE AMINOTRANSFERASE 55 U/L (0-55); ALBUMIN 3.5 GM/DL (3.2-4.5); ALKALINE PHOSPHATASE 46 U/L (40-136); BILIRUBIN,TOTAL 0.6 MG/DL (0.1-1.0); BUN/CREATININE RATIO 21; CALCIUM 8.7 MG/DL (8.5-10.1); CARBON DIOXIDE 32 MMOL/L (21-32); CHLORIDE 94 MMOL/L (98-107); GFR ESTIMATED > 60; GLUCOSE 119 MG/DL (70-105); POTASSIUM 3.6 MMOL/L (3.6-5.0); SODIUM 138 MMOL/L (135-145)
[2018-06-16] MEDS: PANTOPRAZOLE 20 MG TABLET (PROTONIX) PO SCH (06:17)
[2018-06-16] MEDS: RT-ADVAIR HFA 115/21 MCG PER PUFF IH SCH (06:20)
[2018-06-16] MEDS: UMECLIDINIUM BROMIDE (INCRUSE ELLIPTA) 7'S IH SCH (06:21)
--- NOTE | 2018-06-16 06:28 | Pulmonary Progress Note ---
Subjective Time Seen by a Provider: 06:27 Subjective/Events-last exam Pt has grown out pseudomonas in sputum. Zosyn started yesterday. Sepsis Event Evaluation Height, Weight, BMI Height: 5'8.00" Weight: 205lbs. 1.6oz. 93.045078qd; 31.2 BMI Method:Stated Exam Exam Vital Signs Date Time Temp Pulse Resp B/P (MAP) Pulse Ox O2 Delivery O2 Flow Rate FiO2 06/16/18 06:21 95 Nasal Cannula 4.00 06/16/18 04:00 98.2 100 20 138/80 (99) 94 High Flow N/C 5.00 06/16/18 01:45 93 NIV Bilevel 4.00 06/16/18 01:00 76 06/15/18 23:29 98.2 94 20 154/96 (115) 96 High Flow N/C 5.00 06/15/18 20:15 High Flow N/C 4.00 06/15/18 19:55 99.6 111 20 133/91 (105) 96 High Flow N/C 5.00 06/15/18 19:00 111 06/15/18 18:37 95 High Flow N/C 4.00 06/15/18 15:20 99.2 107 24 158/88 (111) 97 High Flow N/C 5.00 06/15/18 15:15 94 High Flow N/C 4.00 06/15/18 12:45 102 06/15/18 12:00 98.6 109 18 137/86 (103) 94 High Flow N/C 5.00 06/15/18 10:58 96 High Flow N/C 5.00 06/15/18 08:25 High Flow N/C 5.00 06/15/18 08:00 98.9 93 20 160/97 (118) 96 High Flow N/C 5.00 06/15/18 07:46 86 06/15/18 07:37 93 High Flow N/C 5.00 I & O 06/16/18 06:59 Intake Total 2300 ml Output Total 2500 ml Balance -200 ml Height & Weight Height: 5'8.00" Weight: 205lbs. 1.6oz. 93.066069jy; 31.2 BMI Method:Stated General Appearance: No Apparent Distress, WD/WN, Chronically ill, Obese HEENT: Normal ENT Inspection, Pharynx Normal Neck: Full Range of Motion, Non Tender, Supple Respiratory: Chest Non Tender, Accessory Muscle Use, Decreased Breath Sounds, Wheezing Cardiovascular: Regular Rate, Rhythm, No Edema Capillary Refill: Less Than 3 Seconds Gastrointestinal: normal bowel sounds, non tender, soft Extremity: Normal Capillary Refill, Normal Inspection Neurologic/Psychiatric: Alert, Oriented x3, No Motor/Sensory Deficits, Normal Mood/Affect Skin: Normal Color, Warm/Dry Lymphatic: No Adenopathy Results Lab Laboratory Tests 06/14/18 16:48 06/15/18 03:55 06/16/18 04:20 Assessment/Plan Assessment/Plan Acute on chronic respiratory failure -Pt already has a home vent to mask Very severe oxygen dependent COPD with AE -prednisone taper -SVNS -Oxygen Pseudomonus PNA -Zosyn started 06/15 Debility EDGARDO THORNTON DO Jun 16, 2018 06:28
[2018-06-16 08:00] VITALS: BP 118/75
[2018-06-16] MEDS: predniSONE 10 MG TAB PO SCH (08:43)
[2018-06-16] MEDS: LORATADINE (CLARITIN) 10 MG TAB PO SCH (08:43)
[2018-06-16] MEDS: FUROSEMIDE 40 MG/4 ML INJ (LASIX) IVP SCH (08:43)
[2018-06-16] MEDS: MUCUS RELIEF 400 MG PO SCH ×3 (08:45→20:59)
[2018-06-16] MEDS: ACETAMINOPHEN PO SCH (08:46)
[2018-06-16] MEDS: CAFFEINE PO SCH (08:46)
[2018-06-16] MEDS: ASPIRIN PO SCH (08:46)
[2018-06-16] MEDS: BACLOFEN 10 MG (LIORESAL) TAB PO SCH ×2 (08:54→21:02)
--- NOTE | 2018-06-16 11:52 | Progress Note-Hospitalist ---
Subjective HPI/CC On Admission Date Seen by Provider: Jun 16, 2018 Time Seen by Provider: 10:30 CC: dsypnea HPI: This is 57 yo white male who presented to the hospital complaining of cough and SOB consistent with previous COPD exacerbations. He has COPD/ emphysema. He is usually on 4.5/5L of O2 at home. 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 Dr. Andersen is is PCP. He was initially placed in ICU for telemetry and placed on high flow O2. His breathing improved with IV steroids and nebulizer treatments. This morning he states his breathing is much easier. Denies pain or fever. He quit smoking in February 2011, "as soon as he was diagnosed with emphysema" says his . Subjective/Events-last exam Patient doing a lot better Breathing better No BM so increased his meds Pseudomonas in sputum and maintained on Zosyn Urinating well Overall much improved from near resp failure Review of Systems General: Fatigue Pulmonary: Dyspnea Gastrointestinal: Constipation Objective Exam Vital Signs Vital Signs Date Time Temp Pulse Resp B/P (MAP) Pulse Ox O2 Delivery O2 Flow Rate FiO2 06/16/18 10:17 96 Nasal Cannula 4.00 06/16/18 08:00 98.5 110 18 118/75 (89) 06/14/18 14:29 35 Capillary Refill : Less Than 3 Seconds General Appearance: No Apparent Distress, WD/WN, Chronically ill, Obese HEENT: Normal ENT Inspection, Pharynx Normal Neck: Full Range of Motion, Non Tender, Supple Respiratory: Chest Non Tender, Accessory Muscle Use, Decreased Breath Sounds, Wheezing Cardiovascular: Regular Rate, Rhythm, No Edema Gastrointestinal: Normal Bowel Sounds, Non Tender, Soft Back: Normal Inspection; No Decreased Range of Motion Extremity: Normal Capillary Refill, Normal Inspection Neurologic/Psychiatric: Alert, Oriented x3, No Motor/Sensory Deficits, Normal Mood/Affect Skin: Normal Color, Warm/Dry Lymphatic: No Adenopathy Results/Procedures Lab Laboratory Tests 06/16/18 04:20 Patient resulted labs reviewed. Imaging: Reviewed Imaging Films, Reviewed Imaging Report Assessment/Plan Assessment and Plan Assess & Plan/Chief Complaint Assessment: AECOPD CO2 retention Volume overload due to diastolic heart failure acute Chronic O2 dependency Chronic back pain HTN Hyperkalemia hx holding ACEi Constipation Plan: IV steroids IV Lasix O2 Home meds Hold ACEi Appreciate Dr Lockhart Diagnosis/Problems Diagnosis/Problems (1) Acute respiratory failure Status: Resolved Qualifiers: Respiratory failure complication: hypoxia and hypercapnia Qualified Codes: J96.01 - Acute respiratory failure with hypoxia; J96.02 - Acute respiratory failure with hypercapnia Resolution Date/Time: 06/14/18 @ 17:34 (2) COPD with acute exacerbation Status: Acute (3) Hyperkalemia Status: Resolved Resolution Date/Time: 06/13/18 @ 11:53 (4) Hypomagnesemia with secondary hypocalcemia Status: Resolved Resolution Date/Time: 06/14/18 @ 17:34 (5) Former smoker Status: Chronic (6) Chronic back pain Status: Chronic Qualifiers: Back pain location: back pain in unspecified location Back pain laterality : unspecified Qualified Codes: M54.9 - Dorsalgia, unspecified; G89.29 - Other chronic pain (7) Hypertension Status: Chronic Qualifiers: Hypertension type: essential hypertension Qualified Codes: I10 - Essential (primary) hypertension (8) GERD without esophagitis Status: Chronic (9) Diastolic heart failure (10) Volume overload Status: Resolved Qualifiers: Hypervolemia type: unspecified Qualified Codes: E87.70 - Fluid overload, unspecified Resolution Date/Time: 06/14/18 @ 17:34 (11) Elevated brain natriuretic peptide (BNP) level Status: Acute (12) Diuresis Status: Acute Clinical Quality Measures DVT/VTE Risk/Contraindication: Risk Factor Score Per Nursin RFS Level Per Nursing on Admit: 4+=Very High MADISON BOURNE DO Jun 16, 2018 11:52
[2018-06-16 12:00] VITALS: BP 129/86
[2018-06-16] MEDS ORDERED: SENNA W/DOCUSATE (SENOKOT S) TABLET PO NR (12:16)
[2018-06-16] MEDS: DOCUSATE SODIUM 100 MG (COLACE) CAP PO SCH ×2 (13:25→21:02)
[2018-06-16] MEDS: HYDROcodone/APAP 10 MG/325 MG (LORTAB) TAB PO PRN (13:29)
--- NOTE | 2018-06-16 13:37 | Progress Note-Urology ---
Progress Note-Urology Progress Notes/Assess & Plan Progress/Assessment & Plan CYSTO TOMORROW Final Diagnosis URI NE RETENTION IKARA PUENTES MD Jun 16, 2018 13:37
--- NOTE | 2018-06-16 14:29 | Progress Note-Cardiology ---
Cardiology SOAP Progress Note Subjective: Shortness of breath slowly improving No cp or palp or syncope Objective: I&O/Vital Signs 06/16/18 06/16/18 06/16/18 06/16/18 04:00 06:21 07:00 08:00 Temp 98.2 98.5 Pulse 100 103 110 Resp 20 18 B/P (MAP) 138/80 (99) 118/75 (89) Pulse Ox 94 95 94 O2 Delivery High Flow N/C Nasal Cannula High Flow N/C O2 Flow Rate 5.00 4.00 5.00 06/16/18 06/16/18 06/16/18 09:00 10:17 12:00 Temp 98.3 Pulse 106 Resp 22 B/P (MAP) 129/86 (100) Pulse Ox 96 93 O2 Delivery High Flow N/C Nasal Cannula High Flow N/C O2 Flow Rate 4.00 4.00 5.00 06/16/18 00:00 Intake Total 1560 ml Output Total 2100 ml Balance -540 ml Weight (Pounds): 205 Weight (Ounces): 1.6 Weight (Calculated Kilograms): 93.288932 Constitutional: AAO x 3, well-developed, well-nourished Respiratory: other Cardiovascular: regular rate-rhythm, S1 and S2, systolic murmur Gastrointestional: distended, audible bowel sounds Extremities: No clubbing, No cyanosis, No significant edema Neurologic/Psychiatric: oriented x 3, grossly intact, power is 5/5 both on sides Skin: No rash on exposed areas, No ulcerations on exposed areas Results/Procedures: Labs Laboratory Tests 06/16/18 04:20: Sodium Level 138, Potassium Level 3.6, Chloride Level 94L, Carbon Dioxide Level 32, Anion Gap 12, Blood Urea Nitrogen 19H, Creatinine 0.90, Estimat Glomerular Filtration Rate > 60, BUN/Creatinine Ratio 21, Glucose Level 119H, Calcium Level 8.7, Corrected Calcium 9.1, Magnesium Level 2.0, Total Bilirubin 0.6, Aspartate Amino Transf (AST/SGOT) 38H, Alanine Aminotransferase (ALT/SGPT) 55, Alkaline Phosphatase 46, Total Protein 6.0L, Albumin 3.5 Microbiology 06/11/18 Blood Culture - Preliminary, Resulted No growth 06/12/18 Gram Stain - Final, Complete 06/12/18 Sputum Culture - Final, Complete Usual upper respiratory theo Pseudomonas aeruginosa Laboratory Tests 06/14/18 16:48 06/15/18 03:55 06/16/18 04:20 A/P: Assessment: Type 2 acute resp failure due to ac exac of COPD Quit tobacco use in or around 2007 Obesity (BMI approx 32) with obesity-hypovent Hyperglycemia: DM II vs steroid use Mild, acute diastolic CHF Echo on 06/13/18: LVEF 55-60%, PASP 30 mmHg H/o hyperkalemia when on AZ-inhibitors Hypertension Urinary obstruction, managed by Dr Carpenter Plan: * Continue current regimen * Monitor labs * I discussed his CV issues with him and his DEANA JONES MD FACP FACC CCDS Jun 16, 2018 14:29
[2018-06-16 15:55] VITALS: BP 137/80
[2018-06-16] MEDS: ENOXAPARIN 40 MG/0.4 ML (LOVENOX) SYR SC SCH (17:34)
[2018-06-16] MEDS: TAMSULOSIN 0.4 MG (FLOMAX) CAP PO SCH (17:35)
[2018-06-16 19:30] VITALS: BP 109/49
[2018-06-16] MEDS: SENNA W/DOCUSATE (SENOKOT S) TABLET PO SCH (21:02)
[2018-06-16] MEDS: PROMETHAZINE 25 MG (PHENERGAN) TAB PO SCH (21:02)
[2018-06-16] MEDS: MONTELUKAST 10 MG (SINGULAIR) TAB PO SCH (21:02)
[2018-06-17] VITALS: BP 124/84
[2018-06-17] MEDS: PIPERACILLIN/TAZOBACTAM (BULK) 4.5 GM in NS (IVPB) 100 ML IV SCH ×3 (00:38→16:21)
[2018-06-17] MEDS: RT-ALBUTEROL/IPRATROPIUM 3 ML (DUONEB) VIAL IH SCH ×6 (02:07→21:49)
[2018-06-17] MEDS: morphine ER 30 MG (MS CONTIN) TAB PO SCH ×2 (03:33→16:20)
[2018-06-17 04:57] LABS: BASOPHILS % (AUTO) 0 % (0-10); EOSINOPHILS # (AUTO) 0.1 10^3/uL (0.0-0.3); EOSINOPHILS % (AUTO) 0 % (0-10); HEMATOCRIT 38 % (40-54); HEMOGLOBIN 12.2 G/DL (13.3-17.7); LYMPHOCYTES # (AUTO) 2.3 X 10^3 (1.0-4.0); LYMPHOCYTES % (AUTO) 15 % (12-44); MEAN CORPUSCULAR HEMOGLOBIN 30 PG (25-34); MEAN CORPUSCULAR HGB CONC 32 G/DL (32-36); MEAN CORPUSCULAR VOLUME 93 FL (80-99); MEAN PLATELET VOLUME 9.9 FL (7.4-10.4); MONOCYTES % (AUTO) 7 % (0-12); NEUTROPHILS # (AUTO) 12.2 X 10^3 (1.8-7.8); NEUTROPHILS % (AUTO) 78 % (42-75); PLATELET COUNT 258 10^3/uL (130-400); RED CELL DISTRIBUTION WIDTH 15.3 % (10.0-14.5); WHITE BLOOD COUNT 15.6 10^3/uL (4.3-11.0)
[2018-06-17 05:13] LABS: BAND NEUTROPHILS 2 %; LYMPHOCYTES % (MANUAL) 11 %; MONOCYTES % (MANUAL) 3 %; NEUTROPHILS % (MANUAL) 79 %
[2018-06-17 05:14] LABS: ANISOCYTOSIS SLIGHT; BASOPHILS % (MANUAL) 0 %; EOSINOPHILS % (MANUAL) 0 %; HYPOCHROMASIA SLIGHT; METAMYELOCYTES % 2 %; POLYCHROMASIA SLIGHT; REACTIVE LYMPHOCYTES 3 %; STOMATOCYTES SLIGHT; TARGET CELLS SLIGHT
[2018-06-17 05:17] LABS: ALANINE AMINOTRANSFERASE 51 U/L (0-55); ALBUMIN 3.6 GM/DL (3.2-4.5); ALKALINE PHOSPHATASE 46 U/L (40-136); BILIRUBIN,TOTAL 0.6 MG/DL (0.1-1.0); BUN/CREATININE RATIO 19; CARBON DIOXIDE 35 MMOL/L (21-32); CHLORIDE 92 MMOL/L (98-107); CREATININE SERUM 0.95 MG/DL (0.60-1.30); GFR ESTIMATED > 60; GLUCOSE 119 MG/DL (70-105); MAGNESIUM 1.9 MG/DL (1.8-2.4); POTASSIUM 3.4 MMOL/L (3.6-5.0); SODIUM 137 MMOL/L (135-145); TOTAL PROTEIN 6.3 GM/DL (6.4-8.2)
[2018-06-17] MEDS: PANTOPRAZOLE 20 MG TABLET (PROTONIX) PO SCH (06:23)
[2018-06-17] MEDS: UMECLIDINIUM BROMIDE (INCRUSE ELLIPTA) 7'S IH SCH (06:27)
[2018-06-17] MEDS: RT-ADVAIR HFA 115/21 MCG PER PUFF IH SCH (06:27)
[2018-06-17 08:00] VITALS: BP 106/76
[2018-06-17] MEDS: FUROSEMIDE 40 MG/4 ML INJ (LASIX) IVP SCH (08:20)
[2018-06-17] MEDS: DOCUSATE SODIUM 100 MG (COLACE) CAP PO SCH ×2 (08:21→21:00)
[2018-06-17] MEDS: predniSONE 10 MG TAB PO SCH (08:21)
[2018-06-17] MEDS: LORATADINE (CLARITIN) 10 MG TAB PO SCH (08:22)
[2018-06-17] MEDS: BACLOFEN 10 MG (LIORESAL) TAB PO SCH ×2 (08:22→21:00)
[2018-06-17] MEDS: CAFFEINE PO SCH (08:24)
[2018-06-17] MEDS: ACETAMINOPHEN PO SCH (08:24)
[2018-06-17] MEDS: ASPIRIN PO SCH (08:24)
[2018-06-17] MEDS: MUCUS RELIEF 400 MG PO SCH ×3 (08:25→21:01)
[2018-06-17] MEDS: SENNA W/DOCUSATE (SENOKOT S) TABLET PO SCH ×2 (08:32→21:00)
[2018-06-17] MEDS ORDERED: LIDOCAINE UROJET 2% GEL 10 ML PKG ONE (08:48)
--- NOTE | 2018-06-17 09:06 | Pulmonary Progress Note ---
Subjective Time Seen by a Provider: 10:43 Sepsis Event Evaluation Height, Weight, BMI Height: 5'8.00" Weight: 201lbs. 1.0oz. 91.278355vh; 31.2 BMI Method:Stated Exam Exam Vital Signs Date Time Temp Pulse Resp B/P (MAP) Pulse Ox O2 Delivery O2 Flow Rate FiO2 06/17/18 06:29 91 NIV Bilevel 21 06/17/18 02:09 90 NIV Bilevel 21 06/17/18 00:00 96.7 103 20 124/84 (97) 94 High Flow N/C 4.00 06/16/18 20:00 High Flow N/C 4.00 06/16/18 19:30 97.5 116 24 109/49 (69) 96 High Flow N/C 5.00 06/16/18 18:50 97 Nasal Cannula 4.00 06/16/18 15:55 97.8 110 24 137/80 (99) 93 High Flow N/C 5.00 06/16/18 14:42 95 Nasal Cannula 4.00 06/16/18 12:00 98.3 106 22 129/86 (100) 93 High Flow N/C 5.00 06/16/18 10:17 96 Nasal Cannula 4.00 I & O 06/17/18 07:00 Intake Total 3650 ml Output Total 3650 ml Balance 0 ml Height & Weight Height: 5'8.00" Weight: 201lbs. 1.0oz. 91.160834ik; 31.2 BMI Method:Stated General Appearance: No Apparent Distress, WD/WN, Chronically ill, Obese HEENT: Normal ENT Inspection, Pharynx Normal Neck: Full Range of Motion, Non Tender, Supple Respiratory: Chest Non Tender, Accessory Muscle Use, Decreased Breath Sounds, Wheezing Cardiovascular: Regular Rate, Rhythm, No Edema Capillary Refill: Less Than 3 Seconds Gastrointestinal: normal bowel sounds, non tender, soft Extremity: Normal Capillary Refill, Normal Inspection Neurologic/Psychiatric: Alert, Oriented x3, No Motor/Sensory Deficits, Normal Mood/Affect Skin: Normal Color, Warm/Dry Lymphatic: No Adenopathy Results Lab Laboratory Tests 06/16/18 04:20 06/17/18 04:30 Assessment/Plan Assessment/Plan Acute on chronic respiratory failure -Pt already has a home vent to mask Very severe oxygen dependent COPD with AE -prednisone taper -SVNS -Oxygen Pseudomonus PNA -Zosyn started 06/15 Debility EDGARDO THORNTON Jun 17, 2018 09:06
--- NOTE | 2018-06-17 09:30 | Progress Note-Post Operative ---
Post-Operative Progess Note Surgeon (s)/Home Designer (s) Surgeon KIARA PUENTES MD Home Designer: NONE Pre-Operative Diagnosis URINE RETENTION Post-Operative Diagnosis SAME Procedure & Operative Findings Date of Procedure 06/17/18 Procedure Performed/Findings CYSTOSCOPY Anesthesia Type LOCAL Estimated Blood Loss Estimated blood loss (mL): NONE Specimens/Packing Specimens Removed NONE Packing: NONE KIARA PUENTES MD Jun 17, 2018 09:30
--- NOTE | 2018-06-17 09:38 | Progress Note-Cardiology ---
Cardiology SOAP Progress Note Subjective: No new symptoms Shortness of breath at usual baseline now No cp or palp or syncope Objective: I&O/Vital Signs 06/17/18 06/17/18 06/17/18 00:00 02:09 06:29 Temp 96.7 Pulse 103 Resp 20 B/P (MAP) 124/84 (97) Pulse Ox 94 90 91 O2 Delivery High Flow N/C NIV Bilevel NIV Bilevel O2 Flow Rate 4.00 FiO2 21 21 06/17/18 00:00 Intake Total 2700 ml Output Total 3300 ml Balance -600 ml Weight (Pounds): 201 Weight (Ounces): 1.0 Weight (Calculated Kilograms): 91.055272 Constitutional: AAO x 3, well-developed, well-nourished Respiratory: other Cardiovascular: regular rate-rhythm, S1 and S2, systolic murmur Gastrointestional: distended, audible bowel sounds Extremities: No clubbing, No cyanosis, No significant edema Neurologic/Psychiatric: oriented x 3, grossly intact, power is 5/5 both on sides Skin: No rash on exposed areas, No ulcerations on exposed areas Results/Procedures: Labs Laboratory Tests 06/17/18 04:30: White Blood Count 15.6H, Red Blood Count 4.07L, Hemoglobin 12.2L, Hematocrit 38L , Mean Corpuscular Volume 93, Mean Corpuscular Hemoglobin 30, Mean Corpuscular Hemoglobin Concent 32, Red Cell Distribution Width 15.3H, Platelet Count 258, Mean Platelet Volume 9.9, Neutrophils (%) (Auto) 78H, Lymphocytes (%) (Auto) 15 , Monocytes (%) (Auto) 7, Eosinophils (%) (Auto) 0, Basophils (%) (Auto) 0, Neutrophils # (Auto) 12.2H, Lymphocytes # (Auto) 2.3, Monocytes # (Auto) 1.0, Eosinophils # (Auto) 0.1, Basophils # (Auto) 0.0, Neutrophils % (Manual) 79, Lymphocytes % (Manual) 11, Monocytes % (Manual) 3, Eosinophils % (Manual) 0, Basophils % (Manual) 0, Metamyelocytes % 2, Band Neutrophils 2, Reactive Lymphocytes 3, Polychromasia SLIGHT, Hypochromasia SLIGHT, Anisocytosis SLIGHT, Macrocytosis SLIGHT, Target Cells SLIGHT, Stomatocytes SLIGHT, Sodium Level 137 , Potassium Level 3.4L, Chloride Level 92L, Carbon Dioxide Level 35H, Anion Gap 10, Blood Urea Nitrogen 18, Creatinine 0.95, Estimat Glomerular Filtration Rate > 60, BUN/Creatinine Ratio 19, Glucose Level 119H, Calcium Level 9.0, Corrected Calcium 9.3, Magnesium Level 1.9, Total Bilirubin 0.6, Aspartate Amino Transf ( AST/SGOT) 28, Alanine Aminotransferase (ALT/SGPT) 51, Alkaline Phosphatase 46, Total Protein 6.3L, Albumin 3.6 Microbiology 06/11/18 Blood Culture - Preliminary, Resulted No growth 06/12/18 Gram Stain - Final, Complete 06/12/18 Sputum Culture - Final, Complete Usual upper respiratory theo Pseudomonas aeruginosa A/P: Assessment: Type 2 acute resp failure due to ac exac of COPD Quit tobacco use in or around 2007 Obesity (BMI approx 32) with obesity-hypovent Hyperglycemia: DM II vs steroid use Mild, acute diastolic CHF Echo on 06/13/18: LVEF 55-60%, PASP 30 mmHg H/o hyperkalemia when on AZ-inhibitors Hypertension Urinary obstruction, managed by Dr Carpenter Plan: * Change furosemide to oral * Monitor labs * Ok for d/c from card standpoint * I discussed his case with Dr Carpenter today * I discussed his CV issues with him and his DEANA JONES MD FACP FAC CCDS Jun 17, 2018 09:38
[2018-06-17] MEDS ORDERED: KCL 20 MEQ TAB (K-DUR) PO NR (10:06)
--- NOTE | 2018-06-17 12:29 | Physical Therapy Daily Note ---
PT Daily Note-Current Subjective Pt on commode with in room and agrees to PT. Mental Status Patient Orientation: Person, Place, Situation, Normal For Age Attachments: Oxygen, IV Transfers Therapy Code Descriptions/Definitions Functional [place] Measure: 0=Not Assessed/NA 4=Minimal Assistance 1=Total Assistance 5=Supervision or Setup 2=Maximal Assistance 6=Modified [place] 3=Moderate Assistance 7=Complete [place] Therapy Quality Codes: 6 Independent with activity with or without an assistive device 5 Patient requires set up or clean up by helper. Patient completes activity by themselves 4 Supervision or touching assist (CGA). [place] provide cues , steadying assist 3 The helper provides less than half the effort to complete the activity 2 The helper provides more than half the effort to complete the activity 1 Dependent. The helper does all the effort to complete an activity 7 Patient refused to complete or attempt activity 9 The patient did not perform the activity before the current illness or injury 88 Not attempted due to Medical conditions or safety concerns Transfers (B, C, W/C) (FIM): 7 Scootin Sit to/from Stand: 7 Weight Bearing Right Lower Extremity: Right Weight Bearing/Tolerated Left Lower Extremity: Left Weight Bearing/Tolerated Gait Training Gait (FIM): 2 Distance (FIM): 3=140-33 ft Distance: 50' Gait Level of Assist: 7 Gait Assistive Device: None Assessment Current Status: Good Progress Pt able to transfer indep. Pt amb indep with no AD and Pt only assisted with IV pole. Pt requested not to leave room and was able to amb 50' in room before requiring a sitting recovery period. PT instructed pt to continue to move around room and explained that he may unplug his IV pole from the wall and bring it with him since he has no safety concerns. PT will be dismissing pt from services due to pt indep function. Pt is sitting in chair with in room and all needs met. PT [facility] Goals Inventory Clerk Goals PT [facility] Goals Time Frame: Jun 18, 2018 Transfers (B,C,W/C) (FIM): 7 Gait (FIM): 6 Gait distance (FIM): 3=150 ft PT Plan Problem List Problem List: Activity Tolerance, Gait Treatment/Plan Treatment Plan: Discontinue PT, goals met, Discontinue PT Treatment Plan: Bed Mobility, Education, Functional Activity [place], Functional Strength, Gait, Safety Treatment Duration: Jun 18, 2018 Frequency: 6 times per week Estimated Hrs Per Day: .25 hour per day Patient and/or Family Agrees t: Yes Time/GCodes Time In: 1146 Time Out: 1156 Total Billed Treatment Time: 10 Total Billed Treatment 1 visit FA 10 min GARFIELD SAUNDERS PT Jun 17, 2018 12:29
[2018-06-17] MEDS: HYDROcodone/APAP 10 MG/325 MG (LORTAB) TAB PO PRN ×2 (13:42→21:00)
[2018-06-17 16:46] VITALS: BP 123/80
[2018-06-17] MEDS: ENOXAPARIN 40 MG/0.4 ML (LOVENOX) SYR SC SCH (17:58)
[2018-06-17] MEDS: TAMSULOSIN 0.4 MG (FLOMAX) CAP PO SCH (17:58)
--- NOTE | 2018-06-17 18:54 | Progress Note (SOAP) ---
Subjective Subjective/Events-last exam Patient states that he is doing much better this AM. Has been able to ambulate around room. Mild shortness of breath with activity. Tolerating PO diet. BM this AM. Review of Systems Date Seen by Provider: Jun 17, 2018 Time Seen by Provider: 10:00 Pulmonary: Dyspnea, Cough Cardiovascular: Edema (Resolved); No: Chest Pain, Palpitations Gastrointestinal: No: Nausea, Vomiting Genitourinary: No Dysuria; Frequency Neurological: Weakness (improving) Objective Exam Last Set of Vital Signs Vital Signs Date Time Temp Pulse Resp B/P (MAP) Pulse Ox O2 Delivery O2 Flow Rate FiO2 06/17/18 16:46 97.3 100 22 123/80 (94) 96 High Flow N/C 4.00 06/17/18 06:29 21 Capillary Refill : Less Than 3 Seconds I&O Intake and Output 06/17/18 00:00 Intake Total 3440 ml Output Total 3700 ml Balance -260 ml Intake Oral 3320 ml IV Total 120 ml Output Urine Total 3700 ml General: Alert, Oriented X3, Cooperative, No Acute Distress HEENT: Mucous Memb Moist/[place] Neck: Supple, No JVD, No Thyromegaly Lungs: Other (basilar wheezing, normal work of breathing, no crackles) Heart: Regular Rate, No Murmurs Abdomen: Normal Bowel Sounds, Soft, No Tenderness, No Hepatosplenomegaly, No Masses Extremities: Other (trace edema present bilaterally) Neuro: Normal Speech, Strength at 5/5 X4 Ext, Cranial Nerves 3-12 NL Psych/Mental Status: Mental Status NL, Mood NL Results/Procedures Lab Laboratory Tests 06/17/18 04:30: White Blood Count 15.6H, Red Blood Count 4.07L, Hemoglobin 12.2L, Hematocrit 38L , Mean Corpuscular Volume 93, Mean Corpuscular Hemoglobin 30, Mean Corpuscular Hemoglobin Concent 32, Red Cell Distribution Width 15.3H, Platelet Count 258, Mean Platelet Volume 9.9, Neutrophils (%) (Auto) 78H, Lymphocytes (%) (Auto) 15 , Monocytes (%) (Auto) 7, Eosinophils (%) (Auto) 0, Basophils (%) (Auto) 0, Neutrophils # (Auto) 12.2H, Lymphocytes # (Auto) 2.3, Monocytes # (Auto) 1.0, Eosinophils # (Auto) 0.1, Basophils # (Auto) 0.0, Neutrophils % (Manual) 79, Lymphocytes % (Manual) 11, Monocytes % (Manual) 3, Eosinophils % (Manual) 0, Basophils % (Manual) 0, Metamyelocytes % 2, Band Neutrophils 2, Reactive Lymphocytes 3, Polychromasia SLIGHT, Hypochromasia SLIGHT, Anisocytosis SLIGHT, Macrocytosis SLIGHT, Target Cells SLIGHT, Stomatocytes SLIGHT, Sodium Level 137 , Potassium Level 3.4L, Chloride Level 92L, Carbon Dioxide Level 35H, Anion Gap 10, Blood Urea Nitrogen 18, Creatinine 0.95, Estimat Glomerular Filtration Rate > 60, BUN/Creatinine Ratio 19, Glucose Level 119H, Calcium Level 9.0, Corrected Calcium 9.3, Magnesium Level 1.9, Total Bilirubin 0.6, Aspartate Amino Transf ( AST/SGOT) 28, Alanine Aminotransferase (ALT/SGPT) 51, Alkaline Phosphatase 46, Total Protein 6.3L, Albumin 3.6 Microbiology 06/11/18 Blood Culture - Final, Complete No growth 06/12/18 Gram Stain - Final, Complete 06/12/18 Sputum Culture - Final, Complete Usual upper respiratory theo Pseudomonas aeruginosa Assessment/Plan Assessment/Plan (1) Acute respiratory failure Status: Resolved Assessment & Plan: - Patient on home oxygen level Qualifiers: Qualified Codes: J96.01 - Acute respiratory failure with hypoxia; J96.02 - Acute respiratory failure with hypercapnia (2) Acute on chronic diastolic (congestive) heart failure Status: Resolved Assessment & Plan: - Dr Lockhart seeing patient, patient will d/c home on daily lasix, switched to PO today, discussed the importance of low salt diet and daily weights (3) COPD with acute exacerbation Status: Acute Assessment & Plan: - Dr Acevedo following patient, Continue steroids/inhalers (4) Hypertension Status: Chronic Assessment & Plan: - Controlled on home meds Qualifiers: Qualified Codes: I10 - Essential (primary) hypertension (5) Hyperkalemia Status: Resolved (6) Volume overload Status: Resolved Qualifiers: Qualified Codes: E87.70 - Fluid overload, unspecified (7) Urinary retention Status: Chronic Assessment & Plan: - Seen by Dr Carpenter, started on flomax (8) DVT prophylaxis Status: Acute Assessment & Plan: Lovenox Plan for D/c home tomorrow Clinical Quality Measures DVT/VTE Risk/Contraindication: Risk Factor Score Per Nursin RFS Level Per Nursing on Admit: 4+=Very High RO HALL MD Jun 17, 2018 18:54
[2018-06-17] MEDS: MONTELUKAST 10 MG (SINGULAIR) TAB PO SCH (21:00)
[2018-06-17] MEDS: PROMETHAZINE 25 MG (PHENERGAN) TAB PO SCH (21:00)
[2018-06-18] VITALS: BP 137/85
[2018-06-18] MEDS: PIPERACILLIN/TAZOBACTAM (BULK) 4.5 GM in NS (IVPB) 100 ML IV SCH ×2 (00:25→08:01)
[2018-06-18] MEDS: RT-ALBUTEROL/IPRATROPIUM 3 ML (DUONEB) VIAL IH SCH ×2 (01:22→06:43)
[2018-06-18] MEDS: morphine ER 30 MG (MS CONTIN) TAB PO SCH (04:43)
[2018-06-18 05:37] LABS: BASOPHILS # (AUTO) 0.1 10^3/uL (0.0-0.1); BASOPHILS % (AUTO) 0 % (0-10); EOSINOPHILS # (AUTO) 0.2 10^3/uL (0.0-0.3); EOSINOPHILS % (AUTO) 1 % (0-10); HEMATOCRIT 38 % (40-54); HEMOGLOBIN 12.8 G/DL (13.3-17.7); LYMPHOCYTES # (AUTO) 2.6 X 10^3 (1.0-4.0); LYMPHOCYTES % (AUTO) 14 % (12-44); MEAN CORPUSCULAR HEMOGLOBIN 31 PG (25-34); MEAN CORPUSCULAR HGB CONC 33 G/DL (32-36); MEAN CORPUSCULAR VOLUME 93 FL (80-99); MEAN PLATELET VOLUME 10.5 FL (7.4-10.4); MONOCYTES # (AUTO) 1.4 X 10^3 (0.0-1.0); MONOCYTES % (AUTO) 7 % (0-12); NEUTROPHILS # (AUTO) 14.2 X 10^3 (1.8-7.8); NEUTROPHILS % (AUTO) 77 % (42-75); PLATELET COUNT 258 10^3/uL (130-400); RED CELL DISTRIBUTION WIDTH 15.6 % (10.0-14.5); WHITE BLOOD COUNT 18.5 10^3/uL (4.3-11.0)
[2018-06-18 05:42] LABS: ALANINE AMINOTRANSFERASE 54 U/L (0-55); ALBUMIN 3.7 GM/DL (3.2-4.5); ALKALINE PHOSPHATASE 47 U/L (40-136); BILIRUBIN,TOTAL 0.7 MG/DL (0.1-1.0); BUN/CREATININE RATIO 18; CALCIUM 9.4 MG/DL (8.5-10.1); CARBON DIOXIDE 29 MMOL/L (21-32); CHLORIDE 92 MMOL/L (98-107); CREATININE SERUM 1.02 MG/DL (0.60-1.30); GFR ESTIMATED > 60; GLUCOSE 107 MG/DL (70-105); MAGNESIUM 2.1 MG/DL (1.8-2.4); POTASSIUM 4.5 MMOL/L (3.6-5.0); SODIUM 137 MMOL/L (135-145); TOTAL PROTEIN 6.7 GM/DL (6.4-8.2)
[2018-06-18] MEDS: PANTOPRAZOLE 20 MG TABLET (PROTONIX) PO SCH (05:56)
[2018-06-18] MEDS: RT-ADVAIR HFA 115/21 MCG PER PUFF IH SCH (06:43)
[2018-06-18] MEDS: UMECLIDINIUM BROMIDE (INCRUSE ELLIPTA) 7'S IH SCH (06:43)
--- NOTE | 2018-06-18 06:54 | OPERATIVE REPORT ---
DATE OF SERVICE: 06/17/2018 PREOPERATIVE DIAGNOSIS: Urinary retention. POSTOPERATIVE DIAGNOSIS: Urinary retention. OPERATION PERFORMED: Cystoscopy. SURGEON: Kael Puentes MD. ANESTHESIA: Local. COMPLICATIONS: None. DESCRIPTION OF PROCEDURE: With the patient supine in his bed, the catheter was removed and the genitalia were prepped and draped in the usual sterile fashion. The urethra was infiltrated with 2% lidocaine jelly. Penile clamp was applied. This was then removed and a flexible cystoscope introduced under vision. Anterior urethra was normal. The prostate was mildly enlarged with some bladder neck obstruction, some trabeculation of the bladder, but no cystitis, carcinoma in situ or bladder tumor. Ureteric orifices normal in shape, size and configuration with clear efflux. Cystoscope was confirmed in antegrade fashion and the cystoscope was removed. The patient tolerated the procedure and anesthesia well, remained in his bed in stable condition. Examination revealed a phallus circumcised with adequate meatus, testes down to the scrotum and decrease in size. Rectal exam; flat, 1+ benign, nontender and elastic prostate. PLAN: We will give him a trial of voiding. He has been on the Flomax now for three to four days, tolerated it well and we will see how he does. Job ID: [id number] DocumentID: [id number] Dictated Date: 06/17/2018 09:26:02 Earth Science Technician Date: 06/17/2018 11:46:13 Dictated By: KAEL PUENTES MD
[2018-06-18] MEDS ORDERED: KCL 10 MEQ TAB (MICRO K) PO SCH (07:00)
--- NOTE | 2018-06-18 07:23 | Pulmonary Progress Note ---
Subjective Time Seen by a Provider: 07:21 Subjective/Events-last exam Pt is doing better. Sepsis Event Evaluation Height, Weight, BMI Height: 5'8.00" Weight: 200lbs. 0.0oz. 90.100976vz; 31.2 BMI Method:Stated Exam Exam Vital Signs Date Time Temp Pulse Resp B/P (MAP) Pulse Ox O2 Delivery O2 Flow Rate FiO2 06/18/18 06:40 94 High Flow N/C 4.00 06/18/18 01:22 94 NIV Bilevel 4.00 06/18/18 00:00 97.6 102 20 137/85 (102) 97 High Flow N/C 4.00 06/17/18 21:49 96 Nasal Cannula 4.00 06/17/18 20:00 High Flow N/C 4.00 06/17/18 18:52 95 Nasal Cannula 4.00 06/17/18 16:46 97.3 100 22 123/80 (94) 96 High Flow N/C 4.00 06/17/18 13:54 95 Nasal Cannula 4.00 06/17/18 10:05 95 Nasal Cannula 4.00 06/17/18 08:00 High Flow N/C 4.00 06/17/18 08:00 98.6 107 20 106/76 (86) 96 High Flow N/C 5.00 I & O 06/18/18 06:59 Intake Total 2440 ml Output Total 1175 ml Balance 1265 ml Height & Weight Height: 5'8.00" Weight: 200lbs. 0.0oz. 90.412626mj; 31.2 BMI Method:Stated General Appearance: No Apparent Distress, WD/WN, Chronically ill, Obese HEENT: Normal ENT Inspection, Pharynx Normal Neck: Full Range of Motion, Non Tender, Supple Respiratory: Chest Non Tender, Accessory Muscle Use, Decreased Breath Sounds, Wheezing Cardiovascular: Regular Rate, Rhythm, No Edema Capillary Refill: Less Than 3 Seconds Gastrointestinal: normal bowel sounds, non tender, soft Extremity: Normal Capillary Refill, Normal Inspection Neurologic/Psychiatric: Alert, Oriented x3, No Motor/Sensory Deficits, Normal Mood/Affect Skin: Normal Color, Warm/Dry Lymphatic: No Adenopathy Results Lab Laboratory Tests 06/17/18 04:30 06/18/18 04:35 Assessment/Plan Assessment/Plan Acute on chronic respiratory failure -Pt already has a home vent to mask Very severe oxygen dependent COPD with AE -prednisone taper -SVNS -Oxygen Pseudomonus PNA -Zosyn started 06/15 -Pt needs 10-14 days of treatment Debility EDGARDO THORNTON DO Jun 18, 2018 07:23
[2018-06-18 08:00] VITALS: BP 137/77
[2018-06-18] MEDS: BACLOFEN 10 MG (LIORESAL) TAB PO SCH (08:02)
[2018-06-18] MEDS: predniSONE 10 MG TAB PO SCH (08:02)
[2018-06-18] MEDS: LORATADINE (CLARITIN) 10 MG TAB PO SCH (08:02)
[2018-06-18] MEDS: MUCUS RELIEF 400 MG PO SCH ×2 (08:03→13:21)
[2018-06-18] MEDS: ACETAMINOPHEN PO SCH (08:04)
[2018-06-18] MEDS: CAFFEINE PO SCH (08:04)
[2018-06-18] MEDS: ASPIRIN PO SCH (08:04)
[2018-06-18] MEDS: DOCUSATE SODIUM 100 MG (COLACE) CAP PO SCH (08:09)
[2018-06-18] MEDS: SENNA W/DOCUSATE (SENOKOT S) TABLET PO SCH (08:09)
[2018-06-18] MEDS: HYDROcodone/APAP 10 MG/325 MG (LORTAB) TAB PO PRN ×2 (08:09→13:21)
--- NOTE | 2018-06-18 08:37 | Progress Note-Urology ---
Progress Note-Urology Progress Notes/Assess & Plan Progress/Assessment & Plan VOIDING WELL. HOME TODAY. WE WILL CHECK PVR PRIOR TO DISCHARGE AND SEE HIM IN 2 WEEKS AT OFFICE FOR COMPLETE W/U Final Diagnosis URINE RETENTION KIARA PUENTES MD Jun 18, 2018 08:37
[2018-06-18] MEDS ORDERED: FUROSEMIDE 40 MG (LASIX) TAB PO SCH (09:00)
--- NOTE | 2018-06-18 10:05 | Progress Note-Cardiology ---
Cardiology SOAP Progress Note Subjective: Sitting up on the side of the bed. States he is ready to go home. No c/o CP, palpitations. Feels breathing has improved. Objective: I&O/Vital Signs 06/18/18 06/18/18 06/18/18 06/18/18 01:22 06:40 08:00 08:00 Temp 97.7 Pulse 100 Resp 18 B/P (MAP) 137/77 (97) Pulse Ox 94 94 94 O2 Delivery NIV Bilevel High Flow N/C High Flow N/C High Flow N/C O2 Flow Rate 4.00 4.00 4.00 4.00 06/18/18 00:00 Intake Total 1840 ml Output Total 1175 ml Balance 665 ml Weight (Pounds): 200 Weight (Ounces): 0.0 Weight (Calculated Kilograms): 90.272201 Constitutional: AAO x 3, well-developed, well-nourished Respiratory: other Cardiovascular: regular rate-rhythm, S1 and S2, systolic murmur Gastrointestional: distended, audible bowel sounds Extremities: No clubbing, No cyanosis, No significant edema Neurologic/Psychiatric: oriented x 3, grossly intact, power is 5/5 both on sides Skin: No rash on exposed areas, No ulcerations on exposed areas Results/Procedures: Labs Laboratory Tests 06/18/18 04:35: White Blood Count 18.5H, Red Blood Count 4.12L, Hemoglobin 12.8L, Hematocrit 38L , Mean Corpuscular Volume 93, Mean Corpuscular Hemoglobin 31, Mean Corpuscular Hemoglobin Concent 33, Red Cell Distribution Width 15.6H, Platelet Count 258, Mean Platelet Volume 10.5H, Neutrophils (%) (Auto) 77H, Lymphocytes (%) (Auto) 14, Monocytes (%) (Auto) 7, Eosinophils (%) (Auto) 1, Basophils (%) (Auto) 0, Neutrophils # (Auto) 14.2H, Lymphocytes # (Auto) 2.6, Monocytes # (Auto) 1.4H, Eosinophils # (Auto) 0.2, Basophils # (Auto) 0.1, Sodium Level 137, Potassium Level 4.5, Chloride Level 92L, Carbon Dioxide Level 29, Anion Gap 16H, Blood Urea Nitrogen 18, Creatinine 1.02, Estimat Glomerular Filtration Rate > 60, BUN/ Creatinine Ratio 18, Glucose Level 107H, Calcium Level 9.4, Corrected Calcium 9.6, Magnesium Level 2.1, Total Bilirubin 0.7, Aspartate Amino Transf (AST/SGOT ) 29, Alanine Aminotransferase (ALT/SGPT) 54, Alkaline Phosphatase 47, Total Protein 6.7, Albumin 3.7 Microbiology 06/11/18 Blood Culture - Final, Complete No growth 06/12/18 Gram Stain - Final, Complete 06/12/18 Sputum Culture - Final, Complete Usual upper respiratory theo Pseudomonas aeruginosa A/P: Assessment: Type 2 acute resp failure due to ac exac of COPD Quit tobacco use in or around 2007 Obesity (BMI approx 32) with obesity-hypovent Hyperglycemia: DM II vs steroid use Mild, acute diastolic CHF Echo on 06/13/18: LVEF 55-60%, PASP 30 mmHg H/o hyperkalemia when on [place]-inhibitors Hypertension Urinary obstruction, managed by Dr Carpenter Plan: * Continue current medication regimen * Ok for d/c from card standpoint * I discussed his case with Dr Carpenter today * I discussed his CV issues with him and his Physician Assessment Physician Assessment No cp or palp or syncope Exertional shortness of breath at its usual baseline Cor: reg Lungs: generally diminished air entry and prolonged exp Ext: no c/c/e A&R * As documented in our note above that I updated (italics) and as noted below * I spoke with him and his in detail and answered CV-related questions * Continue current regimen * Outpt f/u is advised GARY JAMES DROP HAMMER PILE DRIVER OPERATOR Jun 18, 2018 10:04 DEANA JONES MD [facility] CCDS Jun 18, 2018 13:12
--- NOTE | 2018-06-18 10:29 | Discharge Summary ---
Diagnosis/Chief Complaint Date of Admission Jun 11, 2018 at 16:00 Date of Discharge Discharge Diagnosis Problems/Diagnosis: (1) Acute respiratory failure Assessment & Plan: - Patient on home oxygen level Qualifiers: Qualified Codes: J96.01 - Acute respiratory failure with hypoxia; J96.02 - Acute respiratory failure with hypercapnia Status: Resolved Resolution Date/Time: 06/14/18 @ 17:34 (2) Acute on chronic diastolic (congestive) heart failure Assessment & Plan: - Dr Lockhart seeing patient, patient will d/c home on daily lasix, switched to PO today, discussed the importance of low salt diet and daily weights Status: Resolved Resolution Date/Time: 06/17/18 @ 18:54 (3) COPD with acute exacerbation Assessment & Plan: - Dr Acevedo following patient, Continue steroids/inhalers Status: Acute (4) Hypertension Assessment & Plan: - Controlled on home meds Qualifiers: Qualified Codes: I10 - Essential (primary) hypertension Status: Chronic (5) Hyperkalemia Status: Resolved Resolution Date/Time: 06/13/18 @ 11:53 (6) Volume overload Qualifiers: Qualified Codes: E87.70 - Fluid overload, unspecified Status: Resolved Resolution Date/Time: 06/14/18 @ 17:34 (7) Urinary retention Assessment & Plan: - Seen by Dr Carpenter, started on flomax Status: Chronic (8) DVT prophylaxis Assessment & Plan: Lovenox Plan for D/c home tomorrow Status: Acute Discharge Summary-Simple/Stand Consultations Discharge Physical Examination Allergies: Coded Allergies: fentanyl (Verified Allergy, Unknown, SOA, 06/10/16) carisoprodol (Verified Adverse Reaction, Unknown, MEAN, 06/10/16) codeine (Verified Adverse Reaction, Unknown, MEAN, 06/10/16) tramadol (Verified Adverse Reaction, Unknown, FORGETFUL, 06/10/16) Vitals & I&Os Vital Sign - Last 12Hours Date Time Temp Pulse Resp B/P (MAP) Pulse Ox O2 Delivery O2 Flow Rate FiO2 06/18/18 08:00 97.7 100 18 137/77 (97) 94 High Flow N/C 4.00 06/17/18 06:29 21 Intake and Output 06/18/18 00:00 Intake Total 1840 ml Output Total 1175 ml Balance 665 ml Hospital Course See final discharge diagnosis. Discharge Instructions to patient/family Please see electronic discharge instructions given to patient. Discharge Medications Reviewed and agree with Discharge Medication list on patient's Discharge Instruction sheet Clinical Quality Measures DVT/VTE Risk/Contraindication: Risk Factor Score Per Nursin RFS Level Per Nursing on Admit: 4+=Very High RO HALL MD Jun 18, 2018 10:29
--- NOTE | 2018-06-18 10:35 | Discharge Instructions ---
Discharge [facility] Discharge Medications New, Converted or Re-Newed RX: Transmitted to Pharmacy New Medications: Levofloxacin (Levofloxacin) 750 Mg Tablet 750 MG PO DAILY, #7 TAB Furosemide (Furosemide) 40 Mg Tablet 40 MG PO DAILY, #30 TAB Tamsulosin HCl (Flomax) 0.4 Mg Cap 0.4 MG PO DAILY@1800, #30 CAP Continued Medications: Albuterol Sulfate (Ventolin Hfa) 18 Gm Hfa.aer.ad 2 PUFF INH Q6H PRN for SHORTNESS OF BREATH, INHALER Albuterol Sulfate (Albuterol Sulfate) 2.5 Mg/3 Ml Vial.neb 2.5 MG NEB QID PRN for SHORTNESS OF BREATH, EA Aspirin/Acetaminophen/Caffeine (Excedrin Extra Strength Caplet) 1 Each Tablet 1 TAB PO DAILY, TAB Aspirin/Acetaminophen/Caffeine (Excedrin Extra Strength Caplet) 1 Each Tablet 1 TAB PO DAILY PRN for HEADACHE, TAB Baclofen (Baclofen) 10 Mg Tablet 10 MG PO BID, TAB Calcium Carbonate/Vitamin D3 (Calcium 600 + Vit D 200 Tablet) 1 Each Tablet 1 TAB PO BID, TAB Cetirizine HCl (Zyrtec) 10 Mg Tablet 10 MG PO DAILY, TAB Citalopram Hydrobromide (Citalopram HBr) 20 Mg Tablet 20 MG PO DAILY, TAB Docusate Sodium (Colace) 100 Mg Capsule 100 MG PO 1200, CAP Fluticasone/Vilanterol (Breo Ellipta 100-25 Mcg INH) 1 Each Blst.w.dev 1 PUFF IH DAILY, INHALER Gluc 2Kcl/Chondr/Yariel Hy/Hy AC (Glucosamine & Chondroitin Cap) 1 Each Capsule 1 CAP PO DAILY, CAP Guaifenesin (Mucus Relief) 400 Mg Tablet 800 MG PO TID, TAB Hydrocodone/Acetaminophen (Hydrocodon-Acetaminophn 10-325) 1 Each Tablet 1 TAB PO Q4H PRN for PAIN-MODERATE Ibuprofen (Advil) 200 Mg Tablet 200 MG PO Q6H PRN for PAIN-MILD OR TEMPATURE, TAB Montelukast Sodium (Montelukast Sodium) 10 Mg Tablet 10 MG PO HS, TAB Morphine Sulfate (Morphine Sulfate ER) 60 Mg Tablet.er 60 MG PO 0400,1600, TAB Multivitamin with Minerals (Men's One Daily) 1 Each Tablet 1 TAB PO DAILY, TAB Omeprazole (Omeprazole) 20 Mg Capsule.dr 20 MG PO DAILY, CAP Potassium Chloride (Potassium Chloride) 10 Meq Tab.er.prt 10 MEQ PO DAILY PRN for LOW POTASSIUM Promethazine HCl (Promethazine Tablet) 25 Mg Tablet 25 MG PO DAILY, TAB Tetrahydrozoline HCl (Eye Drops) 15 Ml Drops 1-2 DROPS OU TID PRN for DRY EYES, DROPS Turmeric Root Extract (Turmeric) 538 Mg Capsule 1 CAP PO BID, CAP Umeclidinium [place] (Incruse Ellipta) 62.5 Mcg Blst.w.dev 1 PUFF INH DAILY, INHALER Discontinued Medications: Benazepril HCl (Benazepril HCl) 20 Mg Tablet 20 MG PO HS, TAB Furosemide (Furosemide) 20 Mg Tablet 20 MG PO DAILY PRN for FLUID RETENTION, TAB Patient Instructions Goal/Follow Up Appt: You have an appt with Dr Conroy on Saturday 06/24 @ 1140 AM for [facility] Patient Instructions: - Make sure to complete your antibiotics Activity & Diet Discharge Diet: Cardiac Diet Copy Copies To 1: SARA CONROY MD, HOLLY R MD Jun 18, 2018 10:35
[2018-06-18 14:20] VITALS: BP 137/77
--- NOTE | 2018-06-18 14:20 | NUR ---
DISCHARGE INSTRUCTIONS GIVEN TO PATIENT WITH TIME ALLOWED FOR QUESTIONS. IV REMOVED WITH CATHETER INTACT. PATIENT HAS NO COMPLAINTS OF PAIN OR SHORTNESS OF BREATH. PATIENT LEFT VIA WHEELCHAIR ON 4L OF HOME O2 ACCOMPANIED BY STAFF, , AND ADULT SON. LEFT IN PRIVATE VEHICLE.
== END 2018-06-18 14:20 | disposition home or self-care (01) | DRG 189 ==
LOC: ICU 16:00 → 4TH 06-12 09:11
PROVIDERS: ADMIT Internal Medicine; ATTEND Internal Medicine
PROC: 0TJB8ZZ Inspection of Bladder, Via Natural or Artificial Opening Endoscopic (ICD-10-PCS; principal; 2018-06-17 09:00)
DX: J96.21 Acute and chronic respiratory failure with hypoxia (principal); J96.22 Acute and chronic respiratory failure with hypercapnia; J43.9 Emphysema, unspecified; J15.1 Pneumonia due to Pseudomonas; I50.31 Acute diastolic (congestive) heart failure; I11.0 Hypertensive heart disease with heart failure; E66.2 Morbid (severe) obesity with alveolar hypoventilation; Z68.32 Body mass index [BMI] 32.0-32.9, adult; E03.9 Hypothyroidism, unspecified; E87.5 Hyperkalemia; E83.42 Hypomagnesemia; E83.51 Hypocalcemia; E83.39 Other disorders of phosphorus metabolism; R73.9 Hyperglycemia, unspecified; N40.1 Benign prostatic hyperplasia with lower urinary tract symptoms; R33.8 Other retention of urine; K59.00 Constipation, unspecified; K21.9 Gastro-esophageal reflux disease without esophagitis; M54.9 Dorsalgia, unspecified; G89.29 Other chronic pain; Q05.9 Spina bifida, unspecified; R53.81 Other malaise; Z99.81 Dependence on supplemental oxygen; Z87.891 Personal history of nicotine dependence; Z96.651 Presence of right artificial knee joint
CPT/HCPCS: 36415; 36600; 71045; 71046; 71260; 80048; 80053; 81000; 82805; 83605; 83735; 83880; 84100; 84484; 85007; 85025; 85027; 87040; 87070; 87077; 87186; 87205; 93306; 94640; 94660; 94760

== ENCOUNTER → 2018-06-11 | Outpatient (CLI) | payer MEDICARE ==
[~2018-06-11] MED LIST changes: +ALBU18HF2 INH; +ALBU2.5V4 NEB; +ASPI-992 PO; -BENA20TA2 PO; +BENA20TA7 PO; +CETI10TA20 PO; -CITA20TA7 PO; +CITA20TA9 PO; +GLUC-113 PO; +GUAI400T44 PO; +IBUP-30 PO; +MONT10TA24 PO; +MULT-406 PO; -RT-ALBUTEROL SULF 2.5 MG/3 ML PRE-MIX VIAL IH ONE; +TURM538C PO; +UMEC62.5 INH; +[UNRECOGNIZED DRUG - CODE] OU; -[UNRECOGNIZED DRUG - CODE] PO
[2018-06-11 15:20] LABS: BASOPHILS % (AUTO) 0 % (0-10); EOSINOPHILS % (AUTO) 0 % (0-10); HEMATOCRIT 38 % (40-54); HEMOGLOBIN 12.1 G/DL (13.3-17.7); LYMPHOCYTES # (AUTO) 0.8 X 10^3 (1.0-4.0); LYMPHOCYTES % (AUTO) 8 % (12-44); MEAN CORPUSCULAR HEMOGLOBIN 30 PG (25-34); MEAN CORPUSCULAR HGB CONC 32 G/DL (32-36); MEAN CORPUSCULAR VOLUME 94 FL (80-99); MONOCYTES # (AUTO) 0.4 X 10^3 (0.0-1.0); MONOCYTES % (AUTO) 4 % (0-12); NEUTROPHILS # (AUTO) 8.7 X 10^3 (1.8-7.8); NEUTROPHILS % (AUTO) 88 % (42-75); PLATELET COUNT 243 10^3/uL (130-400); WHITE BLOOD COUNT 9.9 10^3/uL (4.3-11.0)
[2018-06-11 15:27] LABS: ABG BASE EXCESS 1.4 MMOL/L (-2.5-2.5); ABG OXYGEN SATURATION 95 % (94-100); ABG PCO2 59 MMHG (35-45); ABG PO2 84 MMHG (79-93); ABG TCO2 29.2 MMOL/L (21.0-31.0)
[2018-06-11 15:28] LABS: ALLENS TEST POSITIVE; INSPIRED O2 4; PATIENT TEMP 98.5; VENTILATOR NO
[2018-06-11 15:28] LABS: CALCIUM 9.1 MG/DL (8.5-10.1); CREATININE SERUM 1.5 MG/DL (0.60-1.30)
[2018-06-11 15:31] LABS: ABG PH 7.29 (7.37-7.43)
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
[2018-06-11 15:52] LABS: BAND NEUTROPHILS 1 %; BASOPHILS % (MANUAL) 0 %; EOSINOPHILS % (MANUAL) 0 %; LYMPHOCYTES % (MANUAL) 8 %; MONOCYTES % (MANUAL) 0 %; NEUTROPHILS % (MANUAL) 90 %; REACTIVE LYMPHOCYTES 1 %
[2018-06-11 15:53] LABS: HYPOCHROMASIA SLIGHT; STOMATOCYTES SLIGHT
== END ==
LOC: RT 14:45
PROVIDERS: ATTEND Internal Medicine Critical Care Medicine
DX: J44.9 Chronic obstructive pulmonary disease, unspecified (principal); J96.21 Acute and chronic respiratory failure with hypoxia
CPT/HCPCS: 36415; 36600; 71046; 80048; 82805; 85007; 85027

== ENCOUNTER 2018-10-22 11:38 | Day surgery (SDC) | payer MEDICARE ==
[~2018-10-22] VITALS: Ht 172.7 cm; Wt 90.7 kg
[2018-10-22] VITALS (11 sets, daily range): BP systolic 112–186; BP diastolic 75–93
[~2018-10-22 11:38] MED LIST changes: -CETI-214 PO; +CETI-458 PO; +FURO40TA4 PO; +TAMS0.4C98 PO
[2018-10-22] MEDS ORDERED: HEParin (CATH LAB) 2,000 ML IV ONE (11:42)
[2018-10-22] MEDS ORDERED: LIDOCAINE 1% INJ 20 ML 20 ML VIAL ONE (11:42)
[2018-10-22] MEDS ORDERED: NS IV 1000 ML 1,000 ML ONE (11:42)
[2018-10-22] MEDS ORDERED: NS IV 1000 ML 1,000 ML IV SCH ×2 (12:00→15:12)
[2018-10-22 12:30] LABS: HEMOGLOBIN 13.9 G/DL (13.3-17.7); MEAN PLATELET VOLUME 9.7 FL (7.4-10.4); RED CELL DISTRIBUTION WIDTH 15.2 % (10.0-14.5); WHITE BLOOD COUNT 9.6 10^3/uL (4.3-11.0)
[2018-10-22 12:41] LABS: PROTHROMBIN TIME PATIENT 13.6 SEC (12.2-14.7)
[2018-10-22 12:47] LABS: ALANINE AMINOTRANSFERASE 27 U/L (0-55); ALBUMIN 4.6 GM/DL (3.2-4.5); ALKALINE PHOSPHATASE 75 U/L (40-136); BILIRUBIN,TOTAL 0.3 MG/DL (0.1-1.0); BUN/CREATININE RATIO 15; CALCIUM 10.1 MG/DL (8.5-10.1); CARBON DIOXIDE 34 MMOL/L (21-32); CHLORIDE 96 MMOL/L (98-107); CHOLESTEROL 202 MG/DL (< 200); CREATININE SERUM 0.91 MG/DL (0.60-1.30); GFR ESTIMATED > 60; GLUCOSE 96 MG/DL (70-105); HDL CHOLESTEROL 46 MG/DL (40-60); POTASSIUM 4.1 MMOL/L (3.6-5.0); SODIUM 142 MMOL/L (135-145); TOTAL PROTEIN 8.3 GM/DL (6.4-8.2); TRIGLYCERIDES 157 MG/DL (<150); VLDL CHOLESTEROL 31 MG/DL (5-40)
[2018-10-22] MEDS ORDERED: MIDAZOLAM 5 MG/5 ML (VERSED) VIAL ONE (14:07)
--- NOTE | 2018-10-22 14:22 | Cardiac Procedure Note-CS/ASA ---
Pre-Procedure Note Pre-Op Procedure Note H&P Reviewed The H&P was reviewed, patient examined and no changes noted. Date H&P Reviewed: Oct 22, 2018 Time H&P Reviewed: 14:22 Conscious Sedation Pre-Proced Time 14:22 ASA Score 3 For ASA 3 and 4: Consider anesthesia and medical clearance. Also, for patients with a history of failed moderate sedation consider anesthesia. Airway Lungs Heart ASA score ASA 1: a normal healthy patient ASA 2: a patient with a mild systemic disease (mid diabetes, controlled hypertension, obesity ASA 3: a patient with a severe systemic disease that limits activity (angina, COPD, prior Myocardial infarction) ASA 4: a patient with an incapacitating disease that is a constant threat to life (CHF, renal failure) ASA 5: a moribund patient not expected to survive 24 hrs. (ruptured aneurysm) ASA 6: a declared brain- patient whose organs are being harvested. For emergent operations, add the letter E after the classification Mallampati Classification Grade 3 Sedation Plan Analgesia, Amnesia, Plan communicated to team members, Discussed options with patient/fam, Discussed risks with patient/fam The patient is an appropriate candidate to undergo the planned procedure, sedation, and anesthesia. The patient immediately re-assessed prior to indication. DEANA JONES MD FACP FAC CCDS Oct 22, 2018 14:22
[2018-10-22] MEDS ORDERED: PATIENT MAY USE OWN MEDS, ALL PO SCH (15:15)
[2018-10-22] MEDS ORDERED: POTA10TA10 PO (15:19)
[2018-10-22] MEDS ORDERED: ATOR40TA70 PO (15:19)
--- NOTE | 2018-10-22 15:20 | Discharge Inst-Cardiology ---
Discharge Inst-Cardiac Discharge Medications New Medications: Atorvastatin Calcium (Atorvastatin Calcium) 40 Mg Tablet 40 MG PO DAILY, #30 TAB 2 Refills Potassium Chloride (Potassium Chloride) 10 Meq Tablet.er 10 MEQ PO DAILY, #30 TAB 2 Refills Continued Medications: Albuterol Sulfate (Ventolin Hfa) 18 Gm Hfa.aer.ad 2 PUFF INH Q6H PRN for SHORTNESS OF BREATH, INHALER Albuterol Sulfate (Albuterol Sulfate) 2.5 Mg/3 Ml Vial.neb 2.5 MG NEB QID PRN for SHORTNESS OF BREATH, EA Aspirin/Acetaminophen/Caffeine (Excedrin Extra Strength Caplet) 1 Each Tablet 1 TAB PO DAILY, TAB Baclofen (Baclofen) 10 Mg Tablet 10 MG PO BID, TAB Calcium Carbonate/Vitamin D3 (Calcium 600 + Vit D 200 Tablet) 1 Each Tablet 1 TAB PO BID, TAB Cetirizine HCl (Zyrtec) 10 Mg Tablet 10 MG PO DAILY, TAB Citalopram Hydrobromide (Citalopram HBr) 20 Mg Tablet 20 MG PO DAILY, TAB Docusate Sodium (Colace) 100 Mg Capsule 100 MG PO 1200, CAP Fluticasone/Vilanterol (Breo Ellipta 100-25 Mcg INH) 1 Each Blst.w.dev 1 PUFF IH DAILY, INHALER Furosemide (Furosemide) 40 Mg Tablet 40 MG PO DAILY, #30 TAB Guaifenesin (Mucus Relief) 400 Mg Tablet 800 MG PO TID, TAB Hydrocodone/Acetaminophen (Hydrocodon-Acetaminophn 10-325) 1 Each Tablet 1 TAB PO Q4H PRN for PAIN-MODERATE Montelukast Sodium (Montelukast Sodium) 10 Mg Tablet 10 MG PO HS, TAB Morphine Sulfate (Morphine Sulfate ER) 60 Mg Tablet.er 60 MG PO 0400,1600, TAB Multivitamin with Minerals (Men's One Daily) 1 Each Tablet 1 TAB PO DAILY, TAB Omeprazole (Omeprazole) 20 Mg Capsule.dr 20 MG PO DAILY, CAP Promethazine HCl (Promethazine Tablet) 25 Mg Tablet 25 MG PO DAILY, TAB Tamsulosin HCl (Flomax) 0.4 Mg Cap 0.4 MG PO DAILY@1800, #30 CAP Umeclidinium [place] (Incruse Ellipta) 62.5 Mcg Blst.w.dev 1 PUFF INH DAILY, INHALER Discontinued Medications: Ibuprofen (Advil) 200 Mg Tablet 200 MG PO Q6H PRN for PAIN-MILD OR TEMPATURE, TAB Potassium Chloride (Potassium Chloride) 10 Meq Tab.er.prt 10 MEQ PO DAILY PRN for LOW POTASSIUM DEANA JONES MD FACP FACC CCDS Oct 22, 2018 15:20
--- NOTE | 2018-10-22 15:21 | Discharge Inst-Post CATH ---
Discharge Inst-CATH/EP Post Cardiac Cath/EP D/C Inst Follow Up/Plan F/u with Dr Lockhart in 1-2 weeks ACTIVITY * Go Home directly and rest. * Limit activity of the leg (or wrist if it was used) for 7 days including aerobics, swimming, jogging, bicycling, etc. * Restrict stair-climbing for 7 days if possible, if not, climb up with your non-cath leg, then bring together on the same step. * Avoid lifting, pushing, pulling or excessive movement of the affected extremity for 7 days. * Customary sexual activity may be resumed after 2 days-use caution not to use a position that strains or causes pain to the affected extremity. * No driving for 24 hours. * NO SMOKING. * Avoid straining for bowel movements for 7 days. * Gentle walking on level ground is allowed. * Returning to work will depend on the type of procedure and the results. Your doctor will discuss this with you. CALL YOUR DOCTOR FOR ANY OF THE FOLLOWING: *If bleeding from the puncture site occurs- Apply gentle pressure to site with clean cloth and call your doctor or EMS. * If a knot or lump forms under the skin, increases in size, or causes pain. * If bruising appears to be worsening or moving further down your leg instead of disappearing. * Temperature above 101 F. CARE OF YOUR GROIN INCISION; * Bruising or purple discoloration of the skin near the puncture site is common. * You may shower only, no bathtub bathing for 5 days. Be careful to avoid slipping as your leg may feel stiff. * If a closure device was used on your femoral artery, please see the attached guide regarding care of the device and your leg. * Leave dressing on FOR 24 hours. CARE OF YOUR WRIST INCISION; * Bruising or purple discoloration of the skin near the puncture site is common. * You may shower. * DO NOT submerge wrist. * Leave dressing on FOR 24 hours. DEANA LOCKHART MD FAC FAC CCDS Oct 22, 2018 15:21
--- NOTE | 2018-10-22 15:30 | NUR ---
PT ARRIVES PER CART FROM STONE HAND, ALERT, DSG D/I TO RIGHT GROIN. O2 PER NC AT 4.5 L PER HIS HOME USE. STATES HE IS ON O2 AT ALL TIMES AT HOME. BED LOW, LOCKED, RAILS UP X2. PO FLUIDS PROVIDED, AT SIDE.
--- NOTE | 2018-10-22 17:30 | NUR ---
HOB ELEVATED 30 DEGREES AND MEAL PROVIDED.
--- NOTE | 2018-10-22 17:47 | NUR ---
USED URINAL TO VOID CLEAR YELLOW URINE. THIN, LINEAR SPOT OF BLOOD NOTED ON RIGHT GROIN DRESSING AND DIME SIZED LIGHT PURPLE AREA NOTED AT EDGE OF 2X2 GAUZE UNDER OPSITE. DENIES PAIN, NO SWELLING NOTED AT AREA, AND GROIN IS SOFT TO PALPATION. MANUAL PRESSURE APPLIED TO SITE, CALL REPORT CALLED TO ROD FINISHER BY STAFF.
--- NOTE | 2018-10-22 17:58 | NUR ---
Jessica PURCELL RN, DECORATIVE CUTTING MACHINE TENDER, HERE TO EVALUATE PT. PRESSURE HAS BEEN HELD AT SITE FROM 1747 TO NOW. RIGHT GROIN DRESSING REMOVED, NO ACTIVE BLEEDING NOTED. NO INCREASE IN AREA OF PURPLE BRUISING IN GROIN SITE. SITE RE-DRESSED WITH 2X2 GAUZE AND OPSITE. WILL MONITOR CLOSELY. PT DENIES COMPLAINTS, REMAINS ALERT AND CHEERFUL.
--- NOTE | 2018-10-22 18:35 | CARDIAC CATHETERIZATION ---
DATE OF SERVICE: 10/22/2018 CARDIAC CATHETERIZATION REPORT The patient is a 58-year-old man who has been diagnosed with congestive heart failure in the recent past. Cardiac catheterization was carried out today after having obtained informed consent. PROCEDURE: He was brought to the cardiac catheterization laboratory in a fasting state. Right groin was prepared and draped in the usual sterile fashion. Lidocaine 1% for local anesthesia. Modified Seldinger technique was used to advance a 5-Brazilian sheath in the right femoral artery, 5-Brazilian JL4 catheter for left coronary angiography, 5-Brazilian JR4 catheter for right coronary angiography, 5-Brazilian pigtail catheter was used for left heart catheterization and left ventricular angiography. Following completion of the diagnostic procedure and removal of the diagnostic catheters, angiography of the right femoral artery was carried out through the sheath and Mynx was used to achieve hemostasis. He tolerated the procedure well. HEMODYNAMICS: Left ventricular end-diastolic pressure following coronary angiography was 17 mmHg. There is no significant pressure gradient pullback across the aortic valve. Ascending aortic pressure is 107/67 with a mean of 85 mmHg. CORONARY ANGIOGRAPHY: Left main coronary artery is essentially nonexistent. There are sarv-rw-sklw ostia of the left anterior descending and the left circumflex arteries. The left anterior descending artery has diffuse itsv-fg-uxkrmikj calcification and diffuse moderate disease. There appears to be 50% mid vessel stenosis. Left circumflex artery has diffuse moderate disease and diffuse zxoj-id-kvrfjdug calcification. It has approximately 40% distal stenoses. The right coronary artery is of high origin, small, nondominant, and without significant obstructive disease. LEFT VENTRICULAR ANGIOGRAPHY: Left ventricular angiography was carried out in the right anterior oblique projection. Global left ventricular systolic function is normal. No regional wall motion abnormalities were seen. Left ventricular ejection fraction approximately 65%. CONCLUSIONS: 1. Moderate coronary artery disease. There is approximately 50% mid vessel stenosis of the left anterior descending. 2. Normal global left ventricular systolic function with ejection fraction approximately 65%. 3. Moderate elevation of left ventricular end-diastolic pressure. DISCUSSION AND RECOMMENDATIONS: Based on results of the study, it appears appropriate to continue a conservative approach. Risk factor modification has been advised and the outpatient followup is advised. Job ID: [id number] DocumentID: [id number] Dictated Date: 10/22/2018 15:03:35 Business Services Administrator Date: 10/22/2018 18:35:09 Dictated By: DEANA JONES MD, MA, FACP, FACC,
--- NOTE | 2018-10-22 18:40 | NUR ---
DSG D/I TO RIGHT GROIN. NO CHANGE IN APPEARANCE OR ON EXAM OF AREA. PT DENIES COMPLAINTS. ASSISTED TO SIT ON SIDE OF BED.
--- NOTE | 2018-10-22 18:50 | NUR ---
NO CHANGE IN SITE ASSESSMENT, DENIES COMPLAINTS. UP IN ROOM TO DRESS FOR HOME WITH 'S ASSIST.
--- NOTE | 2018-10-22 19:10 | NUR ---
HAS BEEN MOBILE IN ROOM WITH NO CHANGE IN SITE ASSESSMENT. DSG D/I, DENIES COMPLAINTS. STATES HE IS READY FOR DISMISSAL. BACK ON HOME O2 TANK FOR DISCHARGE.
== END 2018-10-22 19:10 | disposition home or self-care (01) ==
LOC: CATH 11:38
PROVIDERS: ATTEND Internal Medicine Cardiovascular Disease
DX: I25.10 Atherosclerotic heart disease of native coronary artery without angina pectoris (principal); I11.0 Hypertensive heart disease with heart failure; I50.32 Chronic diastolic (congestive) heart failure; J44.9 Chronic obstructive pulmonary disease, unspecified; R09.02 Hypoxemia; E66.2 Morbid (severe) obesity with alveolar hypoventilation; Z68.30 Body mass index [BMI] 30.0-30.9, adult; Z87.891 Personal history of nicotine dependence; Z79.899 Other long term (current) drug therapy
CPT/HCPCS: 36415; 80053; 80061; 85027; 85610; 85730; 87081; 93458

== ENCOUNTER → 2019-03-25 | Outpatient (CLI) | payer MEDICARE ==
[~2019-03-25] MED LIST changes: +ATOR40TA70 PO; -OMEP20CA12 PO; +OMEP20CA13 PO; +POTA10TA10 PO
--- NOTE | 2019-03-25 13:22 | Diagnostic Imaging Report ---
EXAMINATION: PA and lateral chest at 1:08 p.m. INDICATION: Fever. FINDINGS: The heart size is within normal limits and stable when compared to 06/13/2018. The chronic pulmonary changes noted on the prior study are again evident and do not seem to have changed significantly. There is still no evidence for failure, pneumonia, or for a pleural effusion to indicate an acute abnormality. The mediastinum is not widened. The osseous structures are intact. The metallic foreign bodies overlying the left thorax seen previously are again evident. IMPRESSION: There is chronic pulmonary disease, but there is no sign of an acute cardiopulmonary abnormality. Dictated by: Dictated on workstation # [id number]
== END ==
LOC: RAD 12:54
PROVIDERS: ATTEND Nurse Practitioner Family
DX: J44.9 Chronic obstructive pulmonary disease, unspecified (principal)
CPT/HCPCS: 71046

== ENCOUNTER → 2019-06-13 | Outpatient (CLI) | payer MEDICARE ==
[~2019-06-13] MED LIST changes: -GUAI400T44 PO; +GUAI400T85 PO; -IBUP-2055 PO; +IBUP-2473 PO; -MORP60TA52 PO; +MORP60TA69 PO; +OMEP-280 PO; -OMEP20CA13 PO; -TAMS0.4C98 PO; +TMSL.4C PO
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
== END ==
LOC: RAD 13:36
PROVIDERS: ATTEND Internal Medicine Critical Care Medicine
DX: Z12.2 Encounter for screening for malignant neoplasm of respiratory organs (principal); J96.20 Acute and chronic respiratory failure, unspecified whether with hypoxia or hypercapnia; J45.909 Unspecified asthma, uncomplicated; I25.10 Atherosclerotic heart disease of native coronary artery without angina pectoris; J43.2 Centrilobular emphysema; Z87.891 Personal history of nicotine dependence; Z87.828 Personal history of other (healed) physical injury and trauma

== ENCOUNTER → 2021-01-24 | Outpatient (CLI) | payer MEDICARE ==
[~2021-01-24] MED LIST changes: +ACHYD1T PO; -CALC-6 PO; +CALC1TAB84 PO; -CETI10TA20 PO; +CETI10TA49 PO; +GUAI400T62 PO; -GUAI400T71 PO; -GUAI400T85 PO; +GUAI400T86 PO; -HYDR-3820 PO; -MONT10TA24 PO; +MONT10TA32 PO; -OMEP-280 PO; +OMEP20CA18 PO; +[UNRECOGNIZED DRUG - CODE] OU; -[UNRECOGNIZED DRUG - CODE] OU
== END ==
LOC: CARD 15:00
PROVIDERS: ATTEND Internal Medicine Cardiovascular Disease
DX: I50.32 Chronic diastolic (congestive) heart failure (principal)
CPT/HCPCS: 93306

== ENCOUNTER → 2021-11-22 | Outpatient (CLI) | payer MEDICARE ==
[~2021-11-22] MED LIST changes: -ASPI-789 PO; +ASPI1TAB23 PO; +BENA-3 PO; -BENA20TA7 PO; +MONT-40 PO; -MONT10TA32 PO; -POTA10TA36 PO; +POTA10TA37 PO; +RT-ALBUTEROL SULF 2.5 MG/3 ML PRE-MIX VIAL INH ONE
== END ==
LOC: RT 09:44
PROVIDERS: ATTEND Internal Medicine Critical Care Medicine
DX: J44.9 Chronic obstructive pulmonary disease, unspecified (principal)
CPT/HCPCS: 94060; 94621

== ENCOUNTER → 2021-12-10 | Outpatient (CLI) | payer MEDICARE ==
[~2021-12-10] MED LIST changes: -RT-ALBUTEROL SULF 2.5 MG/3 ML PRE-MIX VIAL INH ONE
== END ==
LOC: LAB 12:40
PROVIDERS: ATTEND Internal Medicine Critical Care Medicine
DX: J44.9 Chronic obstructive pulmonary disease, unspecified (principal)
CPT/HCPCS: 87070; 87077; 87186; 87205

== ENCOUNTER → 2021-12-19 | Outpatient (CLI) | payer MEDICARE | LOC: LAB 10:54 | PROVIDERS: ATTEND Internal Medicine Critical Care Medicine | DX: J44.9 Chronic obstructive pulmonary disease, unspecified (principal) | CPT/HCPCS: 82805 ==

== ENCOUNTER → 2022-01-26 | Outpatient (CLI) | payer MEDICARE ==
[~2022-01-26] MED LIST changes: +LEVO750T PO; -LEVO750T39 PO; +POTA-177 PO; -POTA10TA37 PO
== END ==
LOC: LAB 11:34
PROVIDERS: ATTEND Internal Medicine Critical Care Medicine
DX: J44.9 Chronic obstructive pulmonary disease, unspecified (principal); J15.1 Pneumonia due to Pseudomonas
CPT/HCPCS: 87070; 87101; 87205

== ENCOUNTER 2022-04-13 11:34 | Inpatient (IN) | payer MEDICARE ==
[2022-04-13] VITALS (13 sets, daily range): BP systolic 126–194; BP diastolic 75–114
[~2022-04-13] VITALS: Ht 172.7 cm; Wt 83.5 kg
[2022-04-13] MEDS ORDERED: methylPREDNISolone 125 MG (Solu-MEDROL) VIAL IV STA (11:42)
[2022-04-13] MEDS ORDERED: LACTATED RINGERS 1,000 ML IV SCH (12:00)
[2022-04-13 12:06] LABS: ABG BASE EXCESS 13.4 MMOL/L (-2.5-2.5); ABG OXYGEN SATURATION 96 % (94-100); ABG PCO2 69 MMHG (35-45); ABG PH 7.37 (7.37-7.43); ABG PO2 96 MMHG (79-93)
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
--- NOTE | 2022-04-13 12:07 | ED Respiratory ---
General Chief Complaint: Respiratory Problems Stated Complaint: SOB Nursing Triage Note: PT BROUGHT IN BY [facility] FROM HOME WITH COMPLAINT OF SOA X 4 DAYS. STATES CALLED PCP A FEW DAYS AGO AND WAS PUT ON ANTIBIOTICS. STATES GRANDDAUGHTER CAME HOME FROM SCHOOL WITH A VIRUS AND HE CAUGHT IT. EMS STATES PT WAS ON 16L ON THEIR ARRIVAL. PT NORMALLY WEARS 7LNC AT HOME DAILY. Source: patient Exam Limitations: no limitations History of Present Illness Date Seen by Provider: Apr 13, 2022 Time Seen by Provider: 11:35 Initial Comments Patient is a 61-year-old male who presents to the emergency department via EMS with approximately 3 to 4 days of increasingly worsening shortness of air. Patient's PCP put him on an unknown antibiotic approximately 3 days ago. Reportedly patient's granddaughter has a URI which she feels like he caught. EMS states patient was on 16 L of oxygen upon their arrival. Patient typically wears 7 L of oxygen via nasal cannula daily at home. States he has been taking albuterol nebulized treatments with transient improvement in symptoms. States he has been coughing up thick sputum. Denies any fever. Denies any chest pain. Allergies and Home Medications Allergies Coded Allergies: fentanyl (Verified Allergy, Unknown, SOA, 06/10/16) carisoprodol (Verified Adverse Reaction, Unknown, MEAN, 06/10/16) codeine (Verified Adverse Reaction, Unknown, MEAN, 06/10/16) tramadol (Verified Adverse Reaction, Unknown, FORGETFUL, 06/10/16) Patient Home Medication List Home Medication List Reviewed: Yes Albuterol Sulfate (Ventolin Hfa) 18 Gm Hfa.aer.ad, 2 PUFF INH Q6H PRN for SHORTNESS OF BREATH, (Reported) Entered as Reported by: REGIS WU on 06/11/181749 Albuterol Sulfate (Albuterol Sulfate) 2.5 Mg/3 Ml Vial.neb, 2.5 MG NEB QID PRN for SHORTNESS OF BREATH, (Reported) Entered as Reported by: REGIS WU on 06/11/181749 Aspirin/Acetaminophen/Caffeine (Excedrin Extra Strength Caplet) 1 Each Tablet, 1 TAB PO DAILY, (Reported) Entered as Reported by: REGIS WU on 06/11/181749 Atorvastatin Calcium (Atorvastatin Calcium) 40 Mg Tablet, 40 MG PO DAILY Prescribed by: DEANA JONES on 10/22/18 1519 Baclofen (Baclofen) 10 Mg Tablet, 10 MG PO BID, (Reported) Entered as Reported by: CHARLEY DELATORRE on 06/11/16 0422 Calcium Carbonate/Vitamin D3 (Calcium 600 + Vit D 200 Tablet) 1 Each Tablet, 1 TAB PO BID, (Reported) Entered as Reported by: REGIS WU on 06/11/181749 Cetirizine HCl (Zyrtec) 10 Mg Tablet, 10 MG PO DAILY, (Reported) Entered as Reported by: REGIS WU on 06/11/181749 Citalopram Hydrobromide (Citalopram HBr) 20 Mg Tablet, 20 MG PO DAILY, (Reported) Entered as Reported by: KELVIN SORIA on 06/12/16 114 Docusate Sodium (Colace) 100 Mg Capsule, 100 MG PO 1200, (Reported) Entered as Reported by: REGIS WU on 06/11/181749 Fluticasone/Vilanterol (Breo Ellipta 100-25 Mcg INH) 1 Each Blst.w.dev, 1 PUFF IH DAILY, (Reported) Entered as Reported by: CHARLEY DELATORRE on 06/11/16 0317 Furosemide (Furosemide) 40 Mg Tablet, 40 MG PO DAILY Prescribed by: RO HALL on 06/18/18 1033 Guaifenesin (Mucus Relief) 400 Mg Tablet, 800 MG PO TID, (Reported) Entered as Reported by: KELVIN SORIA on 06/12/16 114 Hydrocodone Bit/Acetaminophen (HYDROcodone/APAP 10/325 TABLET) 1 Each Tablet, 1 TAB PO Q4H PRN for PAIN-MODERATE, (Reported) Entered as Reported by: KELVIN SORIA on 06/12/16 114 Montelukast Sodium (Montelukast Sodium) 10 Mg Tablet, 10 MG PO HS, (Reported) Entered as Reported by: REGIS WU on 06/11/18 175 Morphine Sulfate (Morphine Sulfate ER) 60 Mg Tablet.er, 60 MG PO 0400,1600, (Reported) Entered as Reported by: KELVIN SORIA on 06/12/16 114 Multivitamin with Minerals (Men's One Daily) 1 Each Tablet, 1 TAB PO DAILY, (Reported) Entered as Reported by: REGIS WU on 06/11/18 1750 Omeprazole (Omeprazole) 20 Mg Capsule.dr, 20 MG PO DAILY, (Reported) Entered as Reported by: KELVIN SORIA on 06/12/16 1147 Potassium Chloride (Potassium Chloride) 10 Meq Tablet.er, 10 MEQ PO DAILY Prescribed by: DEANA JONES on 10/22/18 1519 Promethazine HCl (Promethazine Tablet) 25 Mg Tablet, 25 MG PO DAILY, (Reported) Entered as Reported by: CHARLEY DELATORRE on 06/11/16 0422 Tamsulosin HCl (Flomax) 0.4 Mg Cap, 0.4 MG PO DAILY@1800 Prescribed by: RO HALL on 06/18/18 1032 Umeclidinium [place] (Incruse Ellipta) 62.5 Mcg Blst.w.dev, 1 PUFF INH DAILY, (Reported) Entered as Reported by: REGIS WU on 06/11/18 175 Review of Systems Review of Systems Constitutional: no symptoms reported EENTM: no symptoms reported Respiratory: see HPI, cough, short of breath Cardiovascular: no symptoms reported Gastrointestinal: no symptoms reported Genitourinary: no symptoms reported Musculoskeletal: no symptoms reported Skin: no symptoms reported Psychiatric/Neurological: No Symptoms Reported Hematologic/Lymphatic: No Symptoms Reported Immunological/Allergic: no symptoms reported Past Dhixrie-Zlhqyf-Kpinns Hx Patient Social History Tobacco Use?: No Use of E-Cig and/or Vaping dev: No Substance use?: No Alcohol Use?: No Pt feels they are or have been: No Immunizations Up To Date Tetanus Booster (TDap): Unknown Influenza Vaccine Up-to-Date: Yes; Up-to-Date Seasonal Allergies Seasonal Allergies: No Past Medical History Surgeries: Yes (right knee partial replacement) Respiratory: Yes Chronic Bronchitis, Emphysema Currently Using CPAP: Yes Currently Using BIPAP: No Cardiac: Yes Hypertension Neurological: No Reproductive Disorders: No Sexually Transmitted Disease: No HIV/AIDS: No Genitourinary: No Gastrointestinal: No Gastroesophageal Reflux Musculoskeletal: Yes (BONE SPURS, SPINA BIFIDA) Chronic Back Pain Endocrine: Yes Hypothyroidsim HEENT: No Cancer: No Psychosocial: No Integumentary: No Blood Disorders: No Family Medical History Cancer 03 FATHER, Onset:Unknown 03 MOTHER, Onset:Unknown Cataract 03 MOTHER, Onset:Unknown Chest pain 03 MOTHER, Onset:Unknown Congenital heart disease Congestive heart failure 03 MOTHER, Onset:Unknown Family history: Allergy 03 MOTHER, Onset:Unknown Family history: Arthritis 03 FATHER, Onset:Unknown 03 MOTHER Family history: Asthma 03 MOTHER, Onset:Unknown Family history: Breast disease 03 MOTHER, Onset:Unknown Family history: Cardiovascular disease 03 MOTHER, Onset:Unknown Family history: Glaucoma 03 FATHER, Onset:Unknown Family history: Hypertension 03 MOTHER, Onset:Unknown Headache 09 SISTER, Onset:Unknown Heart disease 03 MOTHER, Onset:Unknown History of - respiratory disease 03 MOTHER, Onset:Unknown History of drug abuse 09 SISTER, Onset:Unknown Hypercholesterolemia 03 FATHER, Onset:Unknown 03 MOTHER, Onset:Unknown Malignant neoplasm of lung 03 FATHER, Onset:Unknown Stroke 03 MOTHER, Onset:60 years & older No Family History of: Abdominal aortic aneurysm [place]'s disease Alcoholism Aphasia Cancer of colon Cystic fibrosis Dementia Dysphagia Family history: Alzheimer's disease Family history: Coronary thrombosis Family history: Diabetes mellitus Family history: Gastrointestinal disease Family history: Osteoporosis Family history: Thyroid disorder Hearing loss Hereditary disease History of - anemia History of - disorder Human immunodeficiency virus (HIV) seropositivity Infertile Kidney disease Myocardial infarction Parkinson's disease Prostate cancer Psychotic disorder Seizure disorder Tuberculosis Visual impairment Cancer, Lung Disease Physical Exam Vital Signs - First Documented 04/13/22 12:27 Pulse Ox 98 Capillary Refill : Less Than 3 Seconds Height: 5'8.00" Weight: 200lbs. 0.0oz. 90.744800gk; 29.00 BMI Method:Stated General Appearance: WD/WN, no apparent distress HEENT: PERRL/EOMI, normal ENT inspection, TMs normal, pharynx normal Neck: non-tender, full range of motion, supple, normal inspection Respiratory: chest non-tender, decreased breath sounds, wheezing, expiration Cardiovascular: regular rate, rhythm Gastrointestinal: normal bowel sounds, non tender, soft Neurologic/Psychiatric: no motor/sensory deficits, alert, normal mood/affect, oriented x 3 Skin: normal color, warm/dry Focused Exam Lactate Level 04/13/22 11:47: Lactic Acid Level 1.79 Lactic Acid Level Laboratory Tests Test 04/13/22 11:47 Lactic Acid Level 1.79 MMOL/L (0.50-2.00) Progress/Results/Core Measures Suspected Sepsis SIRS Temperature: Pulse: 132 Respiratory Rate: 30 Laboratory Tests 04/13/22 11:47: White Blood Count 11.4H Blood Pressure 194 /105 Mean: 134 04/13/22 11:47: Lactic Acid Level 1.79 Laboratory Tests 04/13/22 11:44: Creatinine 0.83, Total Bilirubin 0.3 04/13/22 11:47: Platelet Count 407H Results/Orders Lab Results Laboratory Tests Test 04/13/22 11:44 04/13/22 11:47 04/13/22 11:59 Range/Units Sodium Level 139 135-145 MMOL/L Potassium Level 4.0 3.6-5.0 MMOL/L Chloride Level 92 L 98-107 MMOL/L Carbon Dioxide Level 31 21-32 MMOL/L Anion Gap 16 H 5-14 MMOL/L Blood Urea Nitrogen 19 H 7-18 MG/DL Creatinine 0.83 0.60-1.30 MG/DL Estimat Glomerular Filtration Rate 99 BUN/Creatinine Ratio 23 Glucose Level 167 H 70-105 MG/DL Calcium Level 9.5 8.5-10.1 MG/DL Corrected Calcium 9.7 8.5-10.1 MG/DL Magnesium Level 1.7 1.6-2.4 MG/DL Total Bilirubin 0.3 0.1-1.0 MG/DL Aspartate Amino Transf (AST/SGOT) 64 H 5-34 U/L Alanine Aminotransferase (ALT/SGPT) 27 0-55 U/L Alkaline Phosphatase 70 40-136 U/L Total Protein 8.4 H 6.4-8.2 GM/DL Albumin 3.8 3.2-4.5 GM/DL White Blood Count 11.4 H 4.3-11.0 10^3/uL Red Blood Count 4.38 4.30-5.52 10^6/uL Hemoglobin 12.3 L 13.3-17.7 g/dL Hematocrit 40 40-54 % Mean Corpuscular Volume 91 80-99 fL Mean Corpuscular Hemoglobin 28 25-34 pg Mean Corpuscular Hemoglobin Concent 31 L 32-36 g/dL Red Cell Distribution Width 15.6 H 10.0-14.5 % Platelet Count 407 H 130-400 10^3/uL Mean Platelet Volume 9.8 9.0-12.2 fL Immature Granulocyte % (Auto) 1 % Neutrophils (%) (Auto) 93 H 42-75 % Lymphocytes (%) (Auto) 5 L 12-44 % Monocytes (%) (Auto) 2 0-12 % Eosinophils (%) (Auto) 0 0-10 % Basophils (%) (Auto) 0 0-10 % Neutrophils # (Auto) 10.5 H 1.8-7.8 10^3/uL Lymphocytes # (Auto) 0.6 L 1.0-4.0 10^3/uL Monocytes # (Auto) 0.2 0.0-1.0 10^3/uL Eosinophils # (Auto) 0.0 0.0-0.3 10^3/uL Basophils # (Auto) 0.0 0.0-0.1 10^3/uL Immature Granulocyte # (Auto) 0.1 0.0-0.1 10^3/uL Neutrophils % (Manual) 89 % Lymphocytes % (Manual) 5 % Monocytes % (Manual) 2 % Eosinophils % (Manual) 0 % Basophils % (Manual) 0 % Band Neutrophils 4 % Anisocytosis SLIGHT Lactic Acid Level 1.79 0.50-2.00 MMOL/L Influenza Type A (RT-PCR) Not Detected Not Detecte Influenza Type B (RT-PCR) Not Detected Not Detecte SARS-CoV-2 RNA (RT-PCR) Not Detected Not Detecte Blood Gas Puncture Site RT RADIAL Blood Gas Patient Temperature 97.9 Arterial Blood pH 7.37 7.37-7.43 Arterial Blood Partial Pressure CO2 69 H 35-45 MMHG Arterial Blood Partial Pressure O2 96 H 79-93 MMHG Arterial Blood HCO3 39 H 23-27 MMOL/L Arterial Blood Total CO2 41.4 *H 21.0-31.0 MMOL/L Arterial Blood Oxygen Saturation 96 94-100 % Arterial Blood Base Excess 13.4 H -2.5-2.5 MMOL/L Jeff Test YES-POS Blood Gas Ventilator Setting NO Blood Gas Inspired Oxygen 10L My Orders Orders - EDGARDO FRANCE APRN Cbc With Automated Diff (04/13/22 11:42) Blood Culture (04/13/22 11:42) Ekg Tracing (04/13/22 11:42) O2 (04/13/22 11:42) Ed Iv/Invasive Line Start (04/13/22 11:42) Monitor-Rhythm Ecg Trace Only (04/13/22 11:42) Chest 1 View, Ap/Pa Only (04/13/22 11:42) Methylprednisolone Sod Succ (Solu-Medrol (04/13/22 11:42) Covid 19 Inhouse Test (04/13/22 11:42) Influenza A And B By Pcr (04/13/22 11:42) Isolation Central Supply Req (04/13/22 11:42) Arterial Blood Gas (04/13/22 11:42) Lactated Ringers (Lr 1000 Ml Iv Solution (04/13/22 12:00) Manual Differential (04/13/22 11:47) Bipap (Bilevel) Set Up (04/13/22 12:19) Albuterol Pre-Mix Nebs (Rt) (Proventil (04/13/22 12:19) Svn Small Volume Nebulizer (04/13/22 12:19) Ceftriaxone 1 Gm Pre-Mix (Rocephin 1 Gm (04/13/22 12:45) Lactic Acid Analyzer (04/13/22 11:47) Arterial Blood Draw - Obtain (04/13/22 ) Comprehensive Metabolic Panel (04/13/22 11:44) Magnesium (04/13/22 11:44) Ed Admission (Communication) (04/13/22 14:03) Medications Given in ED Current Medications Medications Dose Ordered Sig/Anaid Route Start Time Stop Time Status Last Admin Dose Admin Ceftriaxone Sodium/Dextrose 50 ml @ 100 mls/hr ONCE ONCE IV 04/13/22 12:45 04/13/22 13:14 DC 04/13/22 14:30 100 MLS/HR Vital Signs/I&O 04/13/22 04/13/22 04/13/22 04/13/22 11:34 11:34 11:34 12:27 Temp 36.8 Pulse 132 124 Resp 30 20 B/P (MAP) 194/105 (134) Pulse Ox 98 O2 Delivery Nasal Cannula Nasal Cannula Nasal Cannula O2 Flow Rate 8.00 7.00 8.00 40.00 Capillary Refill : Less Than 3 Seconds Blood Pressure Mean: 134 Progress Note : Progress Note Patient is nontoxic and well-hydrated on exam. Patient has very decreased breath sounds in all lung perea. Some mild expiratory wheezing also noted. Vital signs reassuring although patient is on 10 L of oxygen via facemask. Chest x-ray obtained which shows no acute abnormalities. Laboratory evaluation overall reassuring. ABG notable for hypercapnia. Patient was thus placed on BiPAP. He was also given an hour-long continuous albuterol nebulized treatment through the BiPAP. Patient was given a dose of Rocephin. Will admit for further evaluation and treatment. Patient updated on plan of care and verbalized understanding. Hospitalist kindly agreed to admit. ECG EKG : EKG Time: 12:06 Rate: 133 Rhythm: S.Tach ECG Impression: Nonspecific Changes Departure Impression Primary Impression: Acute on chronic respiratory failure with hypoxia and hypercapnia Additional Impression: COPD exacerbation Disposition: ADMITTED INPATIENT Condition: Stable Admissions Decision to Admit/Date: Apr 13, 2022 Time/Decision to Admit Time: 13:50 Departure-Patient Inst. Referrals: SARA CONROY MD (PCP/Family) Primary Care Physician EDGARDO FRANCE APRN Apr 13, 2022 12:07
[2022-04-13 12:08] LABS: BASOPHILS % (AUTO) 0 % (0-10); EOSINOPHILS % (AUTO) 0 % (0-10); HEMATOCRIT 40 % (40-54); HEMOGLOBIN 12.3 g/dL (13.3-17.7); LYMPHOCYTES # (AUTO) 0.6 10^3/uL (1.0-4.0); LYMPHOCYTES % (AUTO) 5 % (12-44); MEAN CORPUSCULAR HEMOGLOBIN 28 pg (25-34); MEAN CORPUSCULAR HGB CONC 31 g/dL (32-36); MEAN CORPUSCULAR VOLUME 91 fL (80-99); MEAN PLATELET VOLUME 9.8 fL (9.0-12.2); MONOCYTES # (AUTO) 0.2 10^3/uL (0.0-1.0); MONOCYTES % (AUTO) 2 % (0-12); NEUTROPHILS # (AUTO) 10.5 10^3/uL (1.8-7.8); NEUTROPHILS % (AUTO) 93 % (42-75); PLATELET COUNT 407 10^3/uL (130-400); WHITE BLOOD COUNT 11.4 10^3/uL (4.3-11.0)
[2022-04-13 12:16] LABS: ABG TCO2 41.4 MMOL/L (21.0-31.0)
[2022-04-13 12:17] LABS: ALLENS TEST YES-POS; INSPIRED O2 10L; PATIENT TEMP 97.9; VENTILATOR NO
[2022-04-13] MEDS ORDERED: RT-ALBUTEROL SULF 2.5 MG/3 ML PRE-MIX VIAL INH STA (12:19)
[2022-04-13 12:30] LABS: ANISOCYTOSIS SLIGHT; BAND NEUTROPHILS 4 %; BASOPHILS % (MANUAL) 0 %; EOSINOPHILS % (MANUAL) 0 %; LYMPHOCYTES % (MANUAL) 5 %; MONOCYTES % (MANUAL) 2 %; NEUTROPHILS % (MANUAL) 89 %
[2022-04-13] MEDS ORDERED: cefTRIAXone 1 GM PRE-MIX 50 ML IV ONE (12:45)
[2022-04-13 13:40] LABS: CALCIUM 9.5 MG/DL (8.5-10.1); CREATININE SERUM 0.83 MG/DL (0.60-1.30)
[2022-04-13 13:41] LABS: ALBUMIN 3.8 GM/DL (3.2-4.5); BILIRUBIN,TOTAL 0.3 MG/DL (0.1-1.0); TOTAL PROTEIN 8.4 GM/DL (6.4-8.2)
[2022-04-13 13:52] LABS: MAGNESIUM 1.7 MG/DL (1.6-2.4)
[2022-04-13] MEDS ORDERED: ACETAMINOPHEN 325 MG TABLET PO PRN (15:45)
[2022-04-13] MEDS ORDERED: ONDANSETRON 4 MG/2 ML (SDV) Z0FRAN IV PRN (15:45)
[2022-04-13] MEDS ORDERED: guaiFENesin/DM (ROBITUSSIN DM) 10 ML UDC PO PRN (15:45)
[2022-04-13] MEDS ORDERED: ANTACID SUSP 30 ML UDC (MYLANTA) PO PRN (15:45)
[2022-04-13] MEDS ORDERED: LACTULOSE SYRUP 10GM/15ML (ENULOSE) 30ML UDC PO PRN (15:45)
[2022-04-13] MEDS ORDERED: ALPRAZolam 1 MG (XANAX) TAB PO PRN (15:45)
[2022-04-13] MEDS ORDERED: CALCIUM CARBONATE 500 MG (TUMS) TAB.CHEW PO PRN (15:45)
[2022-04-13] MEDS ORDERED: ONDANSETRON 4 MG (ZOFRAN) ORAL DISSOLVE TAB PO PRN (15:45)
[2022-04-13] MEDS ORDERED: MILK OF MAGNESIA 400 MG/5 ML 30 ML UDC PO PRN (15:45)
[2022-04-13] MEDS ORDERED: diphenhydrAMINE 50 MG/ML INJ (BENADRYL) IVP PRN (15:45)
[2022-04-13] MEDS ORDERED: polyethylene glycoL POWDER 17 GM (MIRALAX) PACK PO PRN (15:45)
[2022-04-13] MEDS ORDERED: diphenhydrAMINE 25 MG TAB (BENADRYL) PO PRN (15:45)
[2022-04-13] MEDS ORDERED: NS IV 500 ML 500 ML IV PRN (15:45)
[2022-04-13] MEDS ORDERED: BISACODYL 10 MG SUPP (DULCOLAX) PR PRN (15:45)
[2022-04-13] MEDS: methylPREDNISolone 40 MG/ML (Solu-MEDROL) VIAL IV SCH ×2 (16:06→23:31)
[2022-04-13] MEDS: ALPRAZolam 0.5 MG (XANAX) TAB PO PRN (16:06)
[2022-04-13] MEDS: DOXYCYCLINE 100 MG (VIBRAMYCIN) TABLET PO SCH (16:06)
[2022-04-13] MEDS: NS IV 1000 ML 1,000 ML IV SCH (16:07)
[2022-04-13] MEDS: ENOXAPARIN 40 MG/0.4 ML (LOVENOX) SYR SC SCH (16:07)
[2022-04-13] MEDS ORDERED: RT-ALBUTEROL/IPRATROPIUM 3 ML (DUONEB) VIAL INH PRN (16:30)
[2022-04-13] MEDS: inSUlin ASPART (NovoLOG) 1 UNIT/0.01 ML (CHARGE PER UNIT) SC SCH ×2 (17:01→22:02)
[2022-04-13] MEDS: morphine INJ 4 MG/ML 1 ML (VIAL/SYRINGE) IV PRN ×2 (17:33→23:37)
[2022-04-13] MEDS: BENZONATATE 100 MG (TESSALON) CAPSULE PO SCH (20:28)
[2022-04-13] MEDS: DOCUSATE SODIUM 100 MG (COLACE) CAP PO SCH (20:28)
[2022-04-13] MEDS: SENNOSIDES 8.6 MG (SENOKOT) TAB PO SCH (20:29)
[2022-04-13] MEDS: MONTELUKAST 10 MG (SINGULAIR) TAB PO SCH (20:29)
[2022-04-13] MEDS ORDERED: ADVAIR HFA 115/21 MCG INHALER 8 GM IH SCH (21:00)
[2022-04-13] MEDS: RT-ALBUTEROL/IPRATROPIUM 3 ML (DUONEB) VIAL INH SCH (23:44)
[2022-04-14] VITALS (8 sets, daily range): BP systolic 131–168; BP diastolic 74–101
[2022-04-14] MEDS: RT--FLUTICASONE/SALMETEROL 113-14 (AIRDUO RespiCLICK) IH SCH ×3 (02:20→18:37)
[2022-04-14] MEDS: RT-ALBUTEROL/IPRATROPIUM 3 ML (DUONEB) VIAL INH SCH ×6 (02:20→21:58)
[2022-04-14] MEDS: morphine INJ 4 MG/ML 1 ML (VIAL/SYRINGE) IV PRN ×4 (04:09→21:21)
[2022-04-14 04:50] LABS: ABG BASE EXCESS 13.7 MMOL/L (-2.5-2.5); ABG OXYGEN SATURATION 96 % (94-100); ABG PCO2 60 MMHG (35-45); ABG PH 7.43 (7.37-7.43); ABG PO2 98 MMHG (79-93)
[2022-04-14 04:52] LABS: ABG TCO2 40.8 MMOL/L (21.0-31.0); ALLENS TEST YES-POS; INSPIRED O2 40%; PATIENT TEMP 36.4; VENTILATOR NO
[2022-04-14 05:30] LABS: BASOPHILS % (AUTO) 0 % (0-10); EOSINOPHILS % (AUTO) 0 % (0-10); HEMATOCRIT 37 % (40-54); HEMOGLOBIN 11.3 g/dL (13.3-17.7); LYMPHOCYTES # (AUTO) 0.6 10^3/uL (1.0-4.0); LYMPHOCYTES % (AUTO) 6 % (12-44); MEAN CORPUSCULAR HEMOGLOBIN 28 pg (25-34); MEAN CORPUSCULAR HGB CONC 31 g/dL (32-36); MEAN CORPUSCULAR VOLUME 89 fL (80-99); MEAN PLATELET VOLUME 9.5 fL (9.0-12.2); MONOCYTES # (AUTO) 0.3 10^3/uL (0.0-1.0); MONOCYTES % (AUTO) 3 % (0-12); NEUTROPHILS # (AUTO) 8.8 10^3/uL (1.8-7.8); NEUTROPHILS % (AUTO) 91 % (42-75); PLATELET COUNT 333 10^3/uL (130-400); WHITE BLOOD COUNT 9.6 10^3/uL (4.3-11.0)
[2022-04-14 05:43] LABS: ALBUMIN 3.4 GM/DL (3.2-4.5); POTASSIUM 3.8 MMOL/L (3.6-5.0)
[2022-04-14 05:44] LABS: CALCIUM 9.1 MG/DL (8.5-10.1)
[2022-04-14 05:46] LABS: TOTAL PROTEIN 7.1 GM/DL (6.4-8.2)
[2022-04-14 05:47] LABS: BILIRUBIN,TOTAL 0.3 MG/DL (0.1-1.0)
[2022-04-14 05:49] LABS: CREATININE SERUM 0.73 MG/DL (0.60-1.30); PHOSPHORUS 3.3 MG/DL (2.3-4.7)
[2022-04-14 05:52] LABS: MAGNESIUM 1.7 MG/DL (1.6-2.4)
--- NOTE | 2022-04-14 05:52 | History & Physical-Hospitalist ---
History of Present Illness Source: patient Date Seen 04/14/22 Time Seen by a Provider: 11:00 Attending Physician Sammy Andersen MD PCP Admitting Physician: Josefa Davison DO Attending Physician: Josefa Davison DO Referring Physician Date of Admission Apr 13, 2022 at 14:05 Home Medications & Allergies Home Medications Reviewed patient Home Medication Reconciliation performed by pharmacy medication reconciliations records technician and/or nursing. Patients Allergies have been reviewed. Allergies Allergies Coded Allergies fentanyl (Verified Allergy, Unknown, SOA, 06/10/16) carisoprodol (Verified Adverse Reaction, Unknown, MEAN, 06/10/16) codeine (Verified Adverse Reaction, Unknown, MEAN, 06/10/16) tramadol (Verified Adverse Reaction, Unknown, FORGETFUL, 06/10/16) Past Ncxvtmf-Czxzgk-Ldpblm Hx Patient Social History Tobacco Use?: No Smoking Status: Former Smoker Smokeless Tobacco Frequency: Never a User Use of E-Cig and/or Vaping dev: No Substance use?: No Alcohol Use?: No Pt feels they are or have been: No Immunizations Up To Date Date of Influenza Vaccine: Feb 13, 2018 Tetanus Booster (TDap): Unknown Date of Pneumonia Vaccine: Apr 01, 2016 Seasonal Allergies Seasonal Allergies: No Current Status Advance Directives: No Communicates: Verbally Primary Language: Azeri Preferred Spoken Language: Azeri Is interpretation needed?: No Sensory deficits: Vision impairment Implanted or Applied Medical D: None Past Medical History Chronic Bronchitis, Emphysema Currently Using CPAP: Yes Currently Using BIPAP: No Hypertension Sexually Transmitted Disease: No HIV/AIDS: No Gastroesophageal Reflux Chronic Back Pain Hypothyroidsim Blood Disorders: No COPD HTN Chronic pain Family Medical History Cancer 03 FATHER, Onset:Unknown 03 MOTHER, Onset:Unknown Cataract 03 MOTHER, Onset:Unknown Chest pain 03 MOTHER, Onset:Unknown Congenital heart disease Congestive heart failure 03 MOTHER, Onset:Unknown Family history: Allergy 03 MOTHER, Onset:Unknown Family history: Arthritis 03 FATHER, Onset:Unknown 03 MOTHER Family history: Asthma 03 MOTHER, Onset:Unknown Family history: Breast disease 03 MOTHER, Onset:Unknown Family history: Cardiovascular disease 03 MOTHER, Onset:Unknown Family history: Glaucoma 03 FATHER, Onset:Unknown Family history: Hypertension 03 MOTHER, Onset:Unknown Headache 09 SISTER, Onset:Unknown Heart disease 03 MOTHER, Onset:Unknown History of - respiratory disease 03 MOTHER, Onset:Unknown History of drug abuse 09 SISTER, Onset:Unknown Hypercholesterolemia 03 FATHER, Onset:Unknown 03 MOTHER, Onset:Unknown Malignant neoplasm of lung 03 FATHER, Onset:Unknown Stroke 03 MOTHER, Onset:60 years & older No Family History of: Abdominal aortic aneurysm [place]'s disease Alcoholism Aphasia Cancer of colon Cystic fibrosis Dementia Dysphagia Family history: Alzheimer's disease Family history: Coronary thrombosis Family history: Diabetes mellitus Family history: Gastrointestinal disease Family history: Osteoporosis Family history: Thyroid disorder Hearing loss Hereditary disease History of - anemia History of - disorder Human immunodeficiency virus (HIV) seropositivity Infertile Kidney disease Myocardial infarction Parkinson's disease Prostate cancer Psychotic disorder Seizure disorder Tuberculosis Visual impairment Cancer, Lung Disease Physical Exam Physical Exam Vital Signs Vital Signs - First Documented 04/13/22 04/13/22 12:27 16:09 Pulse Ox 98 FiO2 40 Capillary Refill : Less Than 3 Seconds Height, Weight, BMI Height: 5'8.00" Weight: 200lbs. 0.0oz. 90.645264ik; 27.72 BMI Method:Stated Results Results/Procedures Labs Laboratory Tests 04/13/22 11:44 04/13/22 11:47 04/14/22 05:05 Patient resulted labs reviewed. JOSEFA DAVISON DO Apr 14, 2022 05:52
[2022-04-14] MEDS ORDERED: POTASSIUM CL 10MEQ/50ML IVPB 50 ML IV SCH (06:00)
[2022-04-14] MEDS ORDERED: KCL 20 MEQ TAB (K-DUR) PO SCH (06:00)
[2022-04-14] MEDS ORDERED: MAGNESIUM 1 GM/100 ML IVPB 100 ML IV SCH (06:00)
[2022-04-14] MEDS ORDERED: MAGNESIUM 1 GM/100 ML IVPB 200 ML IV ONE (06:04)
[2022-04-14] MEDS: DOXYCYCLINE 100 MG (VIBRAMYCIN) TABLET PO SCH ×2 (06:10→18:02)
[2022-04-14] MEDS: methylPREDNISolone 40 MG/ML (Solu-MEDROL) VIAL IV SCH ×2 (06:10→12:31)
[2022-04-14] MEDS: MAGNESIUM 1 GM/100 ML IVPB 100 ML IV SCH ×2 (06:12→11:58)
[2022-04-14] MEDS: inSUlin ASPART (NovoLOG) 1 UNIT/0.01 ML (CHARGE PER UNIT) SC SCH ×4 (06:28→21:00)
[2022-04-14] MEDS: BENZONATATE 100 MG (TESSALON) CAPSULE PO SCH ×3 (09:21→21:21)
[2022-04-14] MEDS: LORATADINE (CLARITIN) 10 MG TAB PO SCH (09:21)
[2022-04-14] MEDS: DOCUSATE SODIUM 100 MG (COLACE) CAP PO SCH ×2 (09:38→20:34)
[2022-04-14] MEDS: SENNOSIDES 8.6 MG (SENOKOT) TAB PO SCH ×2 (09:39→20:34)
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
[2022-04-14] MEDS: NS IV 1000 ML 1,000 ML IV SCH (10:35)
[2022-04-14] MEDS ORDERED: cefTRIAXone 1 GM PRE-MIX 50 ML IV SCH (12:00)
[2022-04-14] MEDS ORDERED: PRD50T PO (12:12)
[2022-04-14] MEDS ORDERED: BACL10TA PO (12:12)
[2022-04-14] MEDS ORDERED: HYDR-3820 PO (12:12)
[2022-04-14] MEDS ORDERED: GLUC1CAP37 PO (12:12)
[2022-04-14] MEDS ORDERED: LORA-404 PO (12:12)
[2022-04-14] MEDS ORDERED: DOXY100T2 PO (12:12)
[2022-04-14] MEDS ORDERED: ROFL500T PO (12:12)
[2022-04-14] MEDS ORDERED: TURM500T PO (12:12)
[2022-04-14] MEDS ORDERED: ACET500C41 PO (12:12)
[2022-04-14] MEDS ORDERED: TMSL.4C PO (12:12)
[2022-04-14] MEDS ORDERED: BUDE10.7 PO (12:12)
--- NOTE | 2022-04-14 13:48 | History & Physical-Hospitalist ---
GUNJAN VELASCO 04/14/22 1348: History of Present Illness HPI/Chief Complaint Estevan Alonso is a 61yo M with a h/o respiratory disease, with chief complaint of respiratory failure. He came to the ED of [facility] 04/13/22 and was admitted for acute on chronic respiratory failure 2/2 suspected bacterial PNA and [facility] Pt is slightly obese and mentioned he has bone spurs "up and down his spine" which cause him discomfort and make it hard for him to breath well. He is on Oxygen at home, and felt like it had gotten out of hand and doesnt want to leave until he feels like it can be managed alone. Source: patient Date Seen 04/14/22 Time Seen by a Provider: 09:40 Attending Physician Sammy Andersen MD PCP Admitting Physician: Josefa Bourne DO Attending Physician: Josefa Bourne DO Referring Physician Date of Admission Apr 13, 2022 at 14:05 Home Medications & Allergies Home Medications Reviewed patient Home Medication Reconciliation performed by pharmacy medication reconciliations power tool repair technician and/or nursing. Patients Allergies have been reviewed. Allergies Allergies Coded Allergies fentanyl (Verified Allergy, Unknown, SOA, 06/10/16) carisoprodol (Verified Adverse Reaction, Unknown, MEAN, 06/10/16) codeine (Verified Adverse Reaction, Unknown, MEAN, 06/10/16) tramadol (Verified Adverse Reaction, Unknown, FORGETFUL, 06/10/16) Past Cakwqjv-Gmgimx-Artxka Hx Patient Social History Marrital Status: Employed/Student: retired Tobacco Use?: No Smoking Status: Former Smoker Smokeless Tobacco Frequency: Never a User Use of E-Cig and/or Vaping dev: No Substance use?: No Alcohol Use?: No Pt feels they are or have been: No Immunizations Up To Date Date of Influenza Vaccine: Feb 13, 2018 Tetanus Booster (TDap): Unknown Date of Pneumonia Vaccine: Apr 01, 2016 Seasonal Allergies Seasonal Allergies: No Current Status Advance Directives: No Communicates: Verbally Primary Language: Gambian Preferred Spoken Language: Gambian Is interpretation needed?: No Sensory deficits: Vision impairment Implanted or Applied Medical D: None Past Medical History Chronic Bronchitis, COPD, Emphysema Currently Using CPAP: Yes Currently Using BIPAP: No Hypertension Sexually Transmitted Disease: No HIV/AIDS: No Gastroesophageal Reflux Chronic Back Pain Hypothyroidsim Blood Disorders: No COPD HTN Chronic pain Family Medical History Cancer 03 FATHER, Onset:Unknown 03 MOTHER, Onset:Unknown Cataract 03 MOTHER, Onset:Unknown Chest pain 03 MOTHER, Onset:Unknown Congenital heart disease Congestive heart failure 03 MOTHER, Onset:Unknown Family history: Allergy 03 MOTHER, Onset:Unknown Family history: Arthritis 03 FATHER, Onset:Unknown 03 MOTHER Family history: Asthma 03 MOTHER, Onset:Unknown Family history: Breast disease 03 MOTHER, Onset:Unknown Family history: Cardiovascular disease 03 MOTHER, Onset:Unknown Family history: Glaucoma 03 FATHER, Onset:Unknown Family history: Hypertension 03 MOTHER, Onset:Unknown Headache 09 SISTER, Onset:Unknown Heart disease 03 MOTHER, Onset:Unknown History of - respiratory disease 03 MOTHER, Onset:Unknown History of drug abuse 09 SISTER, Onset:Unknown Hypercholesterolemia 03 FATHER, Onset:Unknown 03 MOTHER, Onset:Unknown Malignant neoplasm of lung 03 FATHER, Onset:Unknown Stroke 03 MOTHER, Onset:60 years & older No Family History of: Abdominal aortic aneurysm Riverside's disease Alcoholism Aphasia Cancer of colon Cystic fibrosis Dementia Dysphagia Family history: Alzheimer's disease Family history: Coronary thrombosis Family history: Diabetes mellitus Family history: Gastrointestinal disease Family history: Osteoporosis Family history: Thyroid disorder Hearing loss Hereditary disease History of - anemia History of - disorder Human immunodeficiency virus (HIV) seropositivity Infertile Kidney disease Myocardial infarction Parkinson's disease Prostate cancer Psychotic disorder Seizure disorder Tuberculosis Visual impairment Cancer, Lung Disease Review of Systems Constitutional: weakness EENTM: no symptoms reported Respiratory: dyspnea on exertion, short of breath Cardiovascular: no symptoms reported Gastrointestinal: no symptoms reported Genitourinary: no symptoms reported Musculoskeletal: back pain Skin: no symptoms reported Psychiatric/Neurological: No Symptoms Reported Physical Exam Physical Exam Vital Signs Vital Signs - First Documented 04/13/22 04/13/22 12:27 16:09 Pulse Ox 98 FiO2 40 Capillary Refill : Less Than 3 Seconds Height, Weight, BMI Height: 5'8.00" Weight: 200lbs. 0.0oz. [id number]; 27.99 BMI Method:Stated General Appearance: No Apparent Distress, WD/WN HEENT: Normal ENT Inspection Neck: Full Range of Motion, Normal Inspection, Non Tender, Supple Respiratory: Chest Non Tender, Accessory Muscle Use, Decreased Breath Sounds Cardiovascular: Regular Rate, Rhythm, No Edema, No Gallop, No JVD, No Murmur, Normal Peripheral Pulses Gastrointestinal: Non Tender, Soft; No Distended, No Guarding, No Rebound Back: Decreased Range of Motion, Vertebral Tenderness Extremity: Normal Capillary Refill, Normal Inspection, Normal Range of Motion, Non Tender, No Calf Tenderness, No Pedal Edema Neurologic/Psychiatric: Alert, Oriented x3, No Motor/Sensory Deficits, Normal Mood/Affect Skin: Normal Color, Warm/Dry Lymphatic: No Adenopathy Results Results/Procedures Labs Laboratory Tests 04/13/22 11:44 04/13/22 11:47 04/14/22 05:05 Patient resulted labs reviewed. Assessment/Plan Admission Diagnosis Acute on Chronic respiratory failure Reason for Inpatient Admission: PNA and Viral exacerbation of COPD Assessment and Plan A: Acute on Chronic respiratory failure PNA Viral URI Hypercapnia normocytic anemia HTN GERD DM COPD exacerbation P: supplemental oxygen Abx regimen(ceftriaxone) fluids/rest BP regulation(diuretics) PPI Diet control JOSEFA BOURNE DO 04/15/22 0530: History of Present Illness Source: patient Past Tmvidas-Xgyreq-Lnfcea Hx Patient Social History Marrital Status: Employed/Student: retired Smoking Status: Former Smoker Past Medical History Chronic Bronchitis, COPD High Cholesterol, Hypertension Family Medical History Cancer 03 FATHER, Onset:Unknown 03 MOTHER, Onset:Unknown Cataract 03 MOTHER, Onset:Unknown Chest pain 03 MOTHER, Onset:Unknown Congenital heart disease Congestive heart failure 03 MOTHER, Onset:Unknown Family history: Allergy 03 MOTHER, Onset:Unknown Family history: Arthritis 03 FATHER, Onset:Unknown 03 MOTHER Family history: Asthma 03 MOTHER, Onset:Unknown Family history: Breast disease 03 MOTHER, Onset:Unknown Family history: Cardiovascular disease 03 MOTHER, Onset:Unknown Family history: Glaucoma 03 FATHER, Onset:Unknown Family history: Hypertension 03 MOTHER, Onset:Unknown Headache 09 SISTER, Onset:Unknown Heart disease 03 MOTHER, Onset:Unknown History of - respiratory disease 03 MOTHER, Onset:Unknown History of drug abuse 09 SISTER, Onset:Unknown Hypercholesterolemia 03 FATHER, Onset:Unknown 03 MOTHER, Onset:Unknown Malignant neoplasm of lung 03 FATHER, Onset:Unknown Stroke 03 MOTHER, Onset:60 years & older No Family History of: Abdominal aortic aneurysm Riverside's disease Alcoholism Aphasia Cancer of colon Cystic fibrosis Dementia Dysphagia Family history: Alzheimer's disease Family history: Coronary thrombosis Family history: Diabetes mellitus Family history: Gastrointestinal disease Family history: Osteoporosis Family history: Thyroid disorder Hearing loss Hereditary disease History of - anemia History of - disorder Human immunodeficiency virus (HIV) seropositivity Infertile Kidney disease Myocardial infarction Parkinson's disease Prostate cancer Psychotic disorder Seizure disorder Tuberculosis Visual impairment Review of Systems Constitutional: see HPI, weakness Respiratory: dyspnea on exertion, short of breath, wheezing Physical Exam Physical Exam General Appearance: No Apparent Distress, Chronically ill Eyes: Right Eye Normal Inspection, Right Eye PERRL HEENT: PERRL/EOMI, Normal ENT Inspection, Pharynx Normal, Moist Mucous Membranes Neck: Full Range of Motion, Normal Inspection, Non Tender Respiratory: Chest Non Tender, Lungs Clear, No Accessory Muscle Use, No Respiratory Distress, Decreased Breath Sounds Cardiovascular: Regular Rate, Rhythm, No Edema, No Gallop, No JVD, No Murmur, Normal Peripheral Pulses Gastrointestinal: Normal Bowel Sounds, No Organomegaly, No Pulsatile Mass, Non Tender, Soft Back: Normal Inspection, No CVA Tenderness, No Vertebral Tenderness Extremity: Normal Capillary Refill, Normal Inspection, Normal Range of Motion, Non Tender, No Calf Tenderness, No Pedal Edema Neurologic/Psychiatric: Alert, Oriented x3, No Motor/Sensory Deficits, Normal Mood/Affect Skin: Normal Color, Warm/Dry Lymphatic: No Adenopathy Assessment/Plan Admission Diagnosis Acute on chronic respiratory failure Exacerbation COPD BiPAP required Plan: Continue BiPAP O2 Nebs Steroids Admission Status: Inpatient Order (span 2 midnights) Reason for Inpatient Admission: Respiratory failure Supervisory-Addendum Brief Verification & Attestation Participated in pt care: history, MDM, physical Personally performed: exam, history, MDM, supervision of care Care discussed with: Medical Student Procedures: n/a Results interpretation: Verified all documentation Verification and Attestation of Medical Student E/M Service A medical student performed and documented this service in my presence. I reviewed and verified all information documented by the medical student and made modifications to such information, when appropriate. I personally performed the physical exam and medical decision making. Josefa Bourne Apr 15, 2022,05:29 GUNJAN VELASCO Apr 14, 2022 13:48 JOSEFA BOURNE DO Apr 15, 2022 05:30
[2022-04-14] MEDS: ALPRAZolam 0.5 MG (XANAX) TAB PO PRN ×2 (13:50→18:25)
[2022-04-14] MEDS: ENOXAPARIN 40 MG/0.4 ML (LOVENOX) SYR SC SCH (16:00)
[2022-04-14] MEDS ORDERED: BACLOFEN 10 MG (LIORESAL) TAB PO PRN (21:15)
[2022-04-14] MEDS ORDERED: cloNIDine 0.1 MG (CATAPRES) TAB PO PRN (21:15)
[2022-04-14] MEDS: MONTELUKAST 10 MG (SINGULAIR) TAB PO SCH (21:21)
[2022-04-14] MEDS: MELATONIN 3 MG TABLET PO PRN (22:55)
[2022-04-15] VITALS (8 sets, daily range): BP systolic 120–165; BP diastolic 67–88
[2022-04-15] MEDS: methylPREDNISolone 40 MG/ML (Solu-MEDROL) VIAL IV SCH ×3 (00:22→20:27)
[2022-04-15] MEDS: RT-ALBUTEROL/IPRATROPIUM 3 ML (DUONEB) VIAL INH SCH ×4 (02:35→19:24)
[2022-04-15] MEDS: morphine ER 30 MG (MS CONTIN) TAB PO SCH ×2 (03:06→14:09)
[2022-04-15 05:45] LABS: BASOPHILS % (AUTO) 0 % (0-10); EOSINOPHILS % (AUTO) 0 % (0-10); HEMATOCRIT 37 % (40-54); HEMOGLOBIN 11.6 g/dL (13.3-17.7); LYMPHOCYTES # (AUTO) 0.6 10^3/uL (1.0-4.0); LYMPHOCYTES % (AUTO) 4 % (12-44); MEAN CORPUSCULAR HEMOGLOBIN 28 pg (25-34); MEAN CORPUSCULAR HGB CONC 31 g/dL (32-36); MEAN CORPUSCULAR VOLUME 88 fL (80-99); MEAN PLATELET VOLUME 9.7 fL (9.0-12.2); MONOCYTES # (AUTO) 0.4 10^3/uL (0.0-1.0); MONOCYTES % (AUTO) 2 % (0-12); NEUTROPHILS # (AUTO) 13.3 10^3/uL (1.8-7.8); NEUTROPHILS % (AUTO) 93 % (42-75); PLATELET COUNT 347 10^3/uL (130-400); WHITE BLOOD COUNT 14.3 10^3/uL (4.3-11.0)
[2022-04-15] MEDS: PANTOPRAZOLE 20 MG TABLET (PROTONIX) PO SCH (06:12)
[2022-04-15] MEDS: DOXYCYCLINE 100 MG (VIBRAMYCIN) TABLET PO SCH ×2 (06:12→16:55)
[2022-04-15 06:14] LABS: ALBUMIN 3.3 GM/DL (3.2-4.5); POTASSIUM 3.9 MMOL/L (3.6-5.0)
[2022-04-15 06:15] LABS: CALCIUM 9.1 MG/DL (8.5-10.1)
--- NOTE | 2022-04-15 06:15 | Progress Note - Hospitalist ---
Subjective HPI/CC On Admission Date Seen by Provider: Apr 15, 2022 Time Seen by Provider: 11:00 Estevan Alonso is a 61yo M with a h/o respiratory disease, with chief complaint of respiratory failure. He came to the ED of [facility] 04/13/22 and was admitted for acute on chronic respiratory failure 2/2 suspected bacterial PNA and viral URI that he got from his [facility]. Pt is slightly obese and mentioned he has bone spurs "up and down his spine" which cause him discomfort and make it hard for him to breath well. He is on Oxygen at home, and felt like it had gotten out of hand and doesnt want to leave until he feels like it can be managed alone. Focused Exam Lactate Level 04/13/22 11:47: Lactic Acid Level 1.79 Objective Exam Vital Signs Vital Signs Date Time Temp Pulse Resp B/P (MAP) Pulse Ox O2 Delivery O2 Flow Rate FiO2 04/15/22 08:00 97 High Flow N/C 5.00 04/15/22 07:51 36.2 104 20 154/88 (110) 04/14/22 08:00 40 Capillary Refill : Less Than 3 Seconds Results/Procedures Lab Laboratory Tests 04/15/22 05:12 Patient resulted labs reviewed. MADISON BOURNE DO Apr 15, 2022 06:14
[2022-04-15 06:16] LABS: TOTAL PROTEIN 6.8 GM/DL (6.4-8.2)
[2022-04-15 06:18] LABS: BILIRUBIN,TOTAL 0.3 MG/DL (0.1-1.0)
[2022-04-15] MEDS: inSUlin ASPART (NovoLOG) 1 UNIT/0.01 ML (CHARGE PER UNIT) SC SCH ×4 (06:18→21:00)
[2022-04-15 06:20] LABS: CREATININE SERUM 0.7 MG/DL (0.60-1.30)
[2022-04-15 06:23] LABS: MAGNESIUM 1.9 MG/DL (1.6-2.4)
[2022-04-15] MEDS: DOCUSATE SODIUM 100 MG (COLACE) CAP PO SCH ×3 (08:00→20:25)
[2022-04-15] MEDS: TAMSULOSIN 0.4 MG (FLOMAX) CAP PO SCH (08:24)
[2022-04-15] MEDS: LORazepam 0.5 MG (ATIVAN) TABLET PO SCH (08:24)
[2022-04-15] MEDS: ROFLUMILAST 500 MCG TAB (DALIRESP) PO SCH (08:24)
[2022-04-15] MEDS: LORATADINE (CLARITIN) 10 MG TAB PO SCH ×2 (08:24→08:25)
[2022-04-15] MEDS: SENNOSIDES 8.6 MG (SENOKOT) TAB PO SCH ×2 (08:25→20:25)
[2022-04-15] MEDS: BENZONATATE 100 MG (TESSALON) CAPSULE PO SCH ×3 (08:45→20:27)
[2022-04-15] MEDS: guaiFENesin SYRUP 100 MG/5 ML 10 ML (ROBITUSSIN SF) PO SCH ×2 (08:45→12:55)
[2022-04-15] MEDS ORDERED: TURMERIC ROOT EXTRACT 1000 MG PO SCH (09:00)
[2022-04-15] MEDS ORDERED: NON-FORMULARY MEDICATION 1 EA EA (Budesonide/Glycopyr/Formoterol (Breztri Aerosphere Inhal PO SCH (09:00)
[2022-04-15] MEDS ORDERED: ACETYLCYSTEINE 500 MG PO SCH (09:00)
[2022-04-15] MEDS ORDERED: CEFD300C3 PO (11:02)
[2022-04-15] MEDS ORDERED: DOXY100T2 PO (11:02)
[2022-04-15] MEDS ORDERED: PRED10TA22 PO (11:02)
[2022-04-15] MEDS ORDERED: BENZ100C18 PO (11:02)
--- NOTE | 2022-04-15 11:04 | Discharge Summary ---
Discharge Summary Hospital Course Hospital Course Date of Admission: Apr 13, 2022 at 14:05 Admission Diagnosis : Family Physician/Provider: Sammy Andersen MD Date of Discharge: 04/15/22 Discharge Diagnosis: [ ] Hospital Course: [ ] Labs and Pending Lab Test: Laboratory Tests 04/14/22 15:45: Glucometer 124H 04/14/22 20:51: Glucometer 134H 04/15/22 05:12: White Blood Count 14.3H, Red Blood Count 4.18L, Hemoglobin 11.6L, Hematocrit 37L , Mean Corpuscular Volume 88, Mean Corpuscular Hemoglobin 28, Mean Corpuscular Hemoglobin Concent 31L, Red Cell Distribution Width 15.9H, Platelet Count 347, Mean Platelet Volume 9.7, Immature Granulocyte % (Auto) 1, Neutrophils (%) (Auto) 93H, Lymphocytes (%) (Auto) 4L, Monocytes (%) (Auto) 2, Eosinophils (%) (Auto) 0, Basophils (%) (Auto) 0, Neutrophils # (Auto) 13.3H, Lymphocytes # (Auto) 0.6L, Monocytes # (Auto) 0.4, Eosinophils # (Auto) 0.0, Basophils # (Auto) 0.0, Immature Granulocyte # (Auto) 0.1, Sodium Level 142, Potassium Level 3.9, Chloride Level 96L, Carbon Dioxide Level 33H, Anion Gap 13, Blood Urea Nitrogen 21H, Creatinine 0.70, Estimat Glomerular Filtration Rate 104, BUN/Creatinine Ratio 30, Glucose Level 150H, Calcium Level 9.1, Corrected Calcium 9.7, Magnesium Level 1.9, Total Bilirubin 0.3, Aspartate Amino Transf (AST/SGOT) 31, Alanine Aminotransferase (ALT/SGPT) 27, Alkaline Phosphatase 54, Total Protein 6.8, Albumin 3.3 04/15/22 10:40: Glucometer 137H Microbiology 04/13/22 Blood Culture - Preliminary, Resulted No growth Home Meds Active Reported Glucosamine & Chondroitin Cap (Glucosa Kurtz 2Kcl/Chondroitin Kurtz) 500 Mg-400 Mg Capsule 1 Each PO 1200 Nac (Acetylcysteine) 500 Mg Capsule 500 Mg PO BID Turmeric (Turmeric Root Extract) 500 Mg Tablet 1,000 Mg PO DAILY Flomax (Tamsulosin HCl) 0.4 Mg Cap 0.4 Mg PO DAILY Daliresp (Roflumilast) 500 Mcg Tablet 500 Mcg PO DAILY Breztri Aerosphere Inhaler (Budesonide/Glycopyr/Formoterol) 160 Mcg-9 Mcg-4.8 Mcg/Actuation Hfa.aer.ad 2 Ea PO BID Baclofen 10 Mg Tablet 10 Mg PO DAILY PRN Hydrocodone-Acetamin 10-325 mg (Hydrocodone/Acetaminophen) 10 Mg-325 Mg Tablet 1-2 Ea PO TID PRN Ativan (Lorazepam) 0.5 Mg Tablet 0.5 Mg PO DAILY Doxycycline Hyclate 100 Mg Tablet 100 Mg PO BID FILLED 04-10-2022 #14/7 DAY SUPPLY Prednisone 50 Mg Tab 50 Mg PO DAILY FILLED 04-10-2022 #5/5 DAY SUPPLY Albuterol Sulfate 2.5 Mg/3 Ml (0.083 %) Vial.neb 2.5 Mg NEB Q6H Ventolin Hfa (Albuterol Sulfate) 18 Gm Hfa.aer.ad 2 Puff INH Q6H PRN Montelukast Sodium 10 Mg Tablet 10 Mg PO HS Zyrtec (Cetirizine HCl) 10 Mg Tablet 10 Mg PO DAILY Calcium 600 + Vit D 200 Tablet (Calcium Carbonate/Vitamin D3) 600 Mg Calcium-5 Mcg (200 Unit) Tablet 2 Ea PO 1200 Men's One Daily (Multivitamin with Minerals) 1 Each Tablet 1 Tab PO 1200 Colace (Docusate Sodium) 100 Mg Capsule 100 Mg PO 1200 Excedrin Extra Strength Caplet (Aspirin/Acetaminophen/Caffeine) 250 Mg-250 Mg-65 Mg Tablet 2 Tab PO DAILY Citalopram HBr (Citalopram Hydrobromide) 20 Mg Tablet 20 Mg PO DAILY Omeprazole 20 Mg Capsule.dr 20 Mg PO DAILY Morphine Sulfate ER (Morphine Sulfate) 60 Mg Tablet.er 60 Mg PO 0200,1400 Mucus Relief (Guaifenesin) 400 Mg Tablet 800 Mg PO TID TAKES 2 (400MG) TABS Promethazine Tablet (Promethazine HCl) 25 Mg Tablet 25 Mg PO 1200,1800 Baclofen 10 Mg Tablet 10 Mg PO 1200,1800 Discharge Physical Examination Vital Signs Vital Signs Date Time Temp Pulse Resp B/P (MAP) Pulse Ox O2 Delivery O2 Flow Rate FiO2 04/15/22 08:00 97 High Flow N/C 5.00 04/15/22 07:51 36.2 104 20 154/88 (110) 04/14/22 08:00 40 Allergies: Coded Allergies: fentanyl (Verified Allergy, Unknown, SOA, 06/10/16) carisoprodol (Verified Adverse Reaction, Unknown, MEAN, 06/10/16) codeine (Verified Adverse Reaction, Unknown, MEAN, 06/10/16) tramadol (Verified Adverse Reaction, Unknown, FORGETFUL, 06/10/16) Discharge Summary Date of Admission Apr 13, 2022 at 14:05 Date of Discharge Discharge Date: Apr 15, 2022 Admission Diagnosis Acute on chronic respiratory failure Exacerbation COPD BiPAP required Plan: Continue BiPAP O2 Nebs Steroids MADISON BOURNE DO Apr 15, 2022 11:04
--- NOTE | 2022-04-15 12:32 | Progress Note - Hospitalist ---
Subjective HPI/CC On Admission Date Seen by Provider: Apr 15, 2022 Time Seen by Provider: 11:00 Estevan Alonso is a 61yo M with a h/o respiratory disease, with chief complaint of respiratory failure. He came to the ED of [facility] 04/13/22 and was admitted for acute on chronic respiratory failure 2/2 suspected bacterial PNA and [facility] Pt is slightly obese and mentioned he has bone spurs "up and down his spine" which cause him discomfort and make it hard for him to breath well. He is on Oxygen at home, and felt like it had gotten out of hand and doesnt want to leave until he feels like it can be managed alone. Subjective/Events-last exam Patient improved Was planning on discharge but cannot take care of him at home Reviewed labs Transition everything to p.o. Review of Systems Pulmonary: Dyspnea, Cough Focused Exam Lactate Level 04/13/22 11:47: Lactic Acid Level 1.79 Objective Exam Vital Signs Vital Signs Date Time Temp Pulse Resp B/P (MAP) Pulse Ox O2 Delivery O2 Flow Rate FiO2 04/16/22 03:20 36.6 94 20 145/87 (106) 97 Nasal Cannula 5.00 04/15/22 21:26 40 Capillary Refill : Less Than 3 Seconds General Appearance: No Apparent Distress, WD/WN, Chronically ill Respiratory: No Accessory Muscle Use, No Respiratory Distress, Decreased Breath Sounds Cardiovascular: Regular Rate, Rhythm Neurologic/Psychiatric: Alert, Oriented x3, No Motor/Sensory Deficits, Normal Mood/Affect Results/Procedures Lab Laboratory Tests 04/16/22 05:18 Patient resulted labs reviewed. Assessment/Plan Assessment and Plan Assess & Plan/Chief Complaint A: Acute on Chronic respiratory failure PNA bacterial type Viral URI recent Hypercapnia chronic normocytic anemia HTN GERD DM COPD exacerbation P: supplemental oxygen Abx regimen(ceftriaxone) fluids/rest BP regulation(diuretics) PPI Diet control MADISON BOURNE DO Apr 15, 2022 12:32
[2022-04-15] MEDS: PROMETHAZINE 25 MG (PHENERGAN) TAB PO SCH ×2 (12:52→17:47)
[2022-04-15] MEDS: MULTIVIT W/MINERALS TAB (THERAGRAN M) PO SCH (12:54)
[2022-04-15] MEDS: BACLOFEN 10 MG (LIORESAL) TAB PO SCH ×2 (12:55→17:47)
[2022-04-15] MEDS: CALCIUM CARB + VIT D 600 MG (CALCARB + D) TAB PO SCH (12:55)
[2022-04-15] MEDS ORDERED: PATIENT MAY USE OWN MED,SINGLE MED PO SCH (14:00)
[2022-04-15] MEDS: ENOXAPARIN 40 MG/0.4 ML (LOVENOX) SYR SC SCH (16:55)
[2022-04-15] MEDS: RT--FLUTICASONE/SALMETEROL 232-14 (AIRDUO RespiCLICK) IH SCH ×2 (19:24→19:34)
[2022-04-15] MEDS: MONTELUKAST 10 MG (SINGULAIR) TAB PO SCH ×2 (20:26→20:27)
[2022-04-15] MEDS: CEFDINIR 300 MG (OMNICEF) CAP PO SCH (20:27)
[2022-04-15] MEDS: GUAIFENESIN 400 MG PO SCH (20:28)
[2022-04-15] MEDS: ALPRAZolam 0.5 MG (XANAX) TAB PO PRN (21:55)
[2022-04-16] MEDS: morphine ER 30 MG (MS CONTIN) TAB PO SCH ×2 (02:51→15:34)
[2022-04-16] MEDS: RT-ALBUTEROL/IPRATROPIUM 3 ML (DUONEB) VIAL INH SCH ×4 (03:04→22:02)
[2022-04-16 03:20] VITALS: BP 145/87
[2022-04-16] MEDS: PANTOPRAZOLE 20 MG TABLET (PROTONIX) PO SCH (05:26)
[2022-04-16] MEDS: DOXYCYCLINE 100 MG (VIBRAMYCIN) TABLET PO SCH ×2 (05:26→16:48)
[2022-04-16 05:34] LABS: BASOPHILS % (AUTO) 0 % (0-10); EOSINOPHILS % (AUTO) 0 % (0-10); HEMATOCRIT 38 % (40-54); HEMOGLOBIN 11.9 g/dL (13.3-17.7); LYMPHOCYTES # (AUTO) 0.5 10^3/uL (1.0-4.0); LYMPHOCYTES % (AUTO) 4 % (12-44); MEAN CORPUSCULAR HEMOGLOBIN 28 pg (25-34); MEAN CORPUSCULAR HGB CONC 31 g/dL (32-36); MEAN CORPUSCULAR VOLUME 89 fL (80-99); MEAN PLATELET VOLUME 9.6 fL (9.0-12.2); MONOCYTES # (AUTO) 0.5 10^3/uL (0.0-1.0); MONOCYTES % (AUTO) 3 % (0-12); NEUTROPHILS # (AUTO) 12.9 10^3/uL (1.8-7.8); NEUTROPHILS % (AUTO) 92 % (42-75); PLATELET COUNT 340 10^3/uL (130-400)
[2022-04-16 05:55] LABS: ALBUMIN 3.3 GM/DL (3.2-4.5); POTASSIUM 3.9 MMOL/L (3.6-5.0)
[2022-04-16 05:56] LABS: CALCIUM 8.8 MG/DL (8.5-10.1)
[2022-04-16 05:58] LABS: TOTAL PROTEIN 6.5 GM/DL (6.4-8.2)
[2022-04-16 05:59] LABS: BILIRUBIN,TOTAL 0.3 MG/DL (0.1-1.0)
[2022-04-16] MEDS: inSUlin ASPART (NovoLOG) 1 UNIT/0.01 ML (CHARGE PER UNIT) SC SCH ×4 (06:00→20:46)
[2022-04-16 06:01] LABS: CREATININE SERUM 0.72 MG/DL (0.60-1.30)
[2022-04-16 06:04] LABS: MAGNESIUM 1.9 MG/DL (1.6-2.4)
--- NOTE | 2022-04-16 06:41 | Progress Note - Hospitalist ---
Subjective HPI/CC On Admission Date Seen by Provider: Apr 16, 2022 Time Seen by Provider: 11:00 Estevan Alonso is a 61yo M with a h/o respiratory disease, with chief complaint of respiratory failure. He came to the ED of [facility] 04/13/22 and was admitted for acute on chronic respiratory failure 2/2 suspected bacterial PNA and [facility] Pt is slightly obese and mentioned he has bone spurs "up and down his spine" which cause him discomfort and make it hard for him to breath well. He is on Oxygen at home, and felt like it had gotten out of hand and doesnt want to leave until he feels like it can be managed alone. Subjective/Events-last exam Patient doing well Improved status cannot take care of him at home No pain reported Review of Systems General: Fatigue, Malaise Focused Exam Lactate Level Objective Exam Vital Signs Vital Signs Date Time Temp Pulse Resp B/P (MAP) Pulse Ox O2 Delivery O2 Flow Rate FiO2 04/16/22 16:38 36.8 106 18 137/71 (93) 93 High Flow N/C 5.00 04/15/22 21:26 40 Capillary Refill : Less Than 3 Seconds General Appearance: No Apparent Distress, WD/WN, Chronically ill Respiratory: Lungs Clear, Normal Breath Sounds, Decreased Breath Sounds Cardiovascular: Regular Rate, Rhythm Neurologic/Psychiatric: Alert, Oriented x3 Results/Procedures Lab Laboratory Tests 04/16/22 05:18 Patient resulted labs reviewed. Assessment/Plan Assessment and Plan Assess & Plan/Chief Complaint A: Acute on Chronic respiratory failure PNA bacterial type Viral URI recent Hypercapnia chronic normocytic anemia HTN GERD DM COPD exacerbation P: supplemental oxygen Abx regimen(ceftriaxone) fluids/rest BP regulation(diuretics) PPI Diet control MADISON BOURNE DO Apr 16, 2022 06:41
[2022-04-16 08:14] VITALS: BP 123/82
[2022-04-16] MEDS: UMECLIDINIUM BROMIDE (INCRUSE ELLIPTA) 7'S IH SCH ×2 (08:27→22:05)
[2022-04-16] MEDS: RT--FLUTICASONE/SALMETEROL 232-14 (AIRDUO RespiCLICK) IH SCH ×2 (08:27→22:04)
[2022-04-16] MEDS: BENZONATATE 100 MG (TESSALON) CAPSULE PO SCH ×3 (09:00→20:30)
[2022-04-16] MEDS: LORATADINE (CLARITIN) 10 MG TAB PO SCH ×2 (09:00)
[2022-04-16] MEDS: CEFDINIR 300 MG (OMNICEF) CAP PO SCH ×2 (09:00→20:25)
[2022-04-16] MEDS: DOCUSATE SODIUM 100 MG (COLACE) CAP PO SCH ×3 (09:00→20:30)
[2022-04-16] MEDS: LORazepam 0.5 MG (ATIVAN) TABLET PO SCH (09:00)
[2022-04-16] MEDS: TAMSULOSIN 0.4 MG (FLOMAX) CAP PO SCH (09:01)
[2022-04-16] MEDS: methylPREDNISolone 40 MG/ML (Solu-MEDROL) VIAL IV SCH ×2 (09:01→20:25)
[2022-04-16] MEDS: SENNOSIDES 8.6 MG (SENOKOT) TAB PO SCH ×2 (09:02→20:30)
[2022-04-16] MEDS: GUAIFENESIN 400 MG PO SCH ×3 (09:03→20:26)
[2022-04-16] MEDS: ROFLUMILAST 500 MCG TAB (DALIRESP) PO SCH (09:06)
[2022-04-16 12:22] VITALS: BP 117/74
[2022-04-16] MEDS: MULTIVIT W/MINERALS TAB (THERAGRAN M) PO SCH (13:17)
[2022-04-16] MEDS: BACLOFEN 10 MG (LIORESAL) TAB PO SCH ×2 (13:20→18:57)
[2022-04-16] MEDS: PROMETHAZINE 25 MG (PHENERGAN) TAB PO SCH ×2 (13:23→18:58)
[2022-04-16] MEDS: ENOXAPARIN 40 MG/0.4 ML (LOVENOX) SYR SC SCH (15:28)
[2022-04-16] MEDS: CALCIUM CARB + VIT D 600 MG (CALCARB + D) TAB PO SCH (15:28)
[2022-04-16 16:38] VITALS: BP 137/71
[2022-04-16] MEDS: ALPRAZolam 0.5 MG (XANAX) TAB PO PRN (18:57)
[2022-04-16] MEDS: MONTELUKAST 10 MG (SINGULAIR) TAB PO SCH ×2 (19:03→20:25)
[2022-04-16 20:20] VITALS: BP 136/76
[2022-04-16] MEDS: MELATONIN 3 MG TABLET PO PRN (20:46)
[2022-04-16] MEDS: aCETylcysteine 20% (MUCOMYST) 4 ML SOLN VIAL PO SCH (22:05)
[2022-04-16 23:52] VITALS: BP 148/68
[2022-04-17] MEDS: morphine ER 30 MG (MS CONTIN) TAB PO SCH ×2 (01:37→14:57)
[2022-04-17] MEDS: RT-ALBUTEROL/IPRATROPIUM 3 ML (DUONEB) VIAL INH SCH ×3 (02:24→14:45)
[2022-04-17 03:39] VITALS: BP 121/72
[2022-04-17] MEDS: DOXYCYCLINE 100 MG (VIBRAMYCIN) TABLET PO SCH (06:08)
[2022-04-17] MEDS: inSUlin ASPART (NovoLOG) 1 UNIT/0.01 ML (CHARGE PER UNIT) SC SCH ×2 (06:08→11:07)
[2022-04-17] MEDS: PANTOPRAZOLE 20 MG TABLET (PROTONIX) PO SCH (06:08)
[2022-04-17 06:27] LABS: ALBUMIN 3.3 GM/DL (3.2-4.5)
[2022-04-17 06:28] LABS: BASOPHILS % (AUTO) 0 % (0-10); EOSINOPHILS % (AUTO) 0 % (0-10); HEMATOCRIT 38 % (40-54); HEMOGLOBIN 11.8 g/dL (13.3-17.7); LYMPHOCYTES # (AUTO) 0.4 10^3/uL (1.0-4.0); LYMPHOCYTES % (AUTO) 3 % (12-44); MEAN CORPUSCULAR HEMOGLOBIN 28 pg (25-34); MEAN CORPUSCULAR HGB CONC 31 g/dL (32-36); MEAN CORPUSCULAR VOLUME 90 fL (80-99); MEAN PLATELET VOLUME 9.6 fL (9.0-12.2); MONOCYTES # (AUTO) 0.5 10^3/uL (0.0-1.0); MONOCYTES % (AUTO) 4 % (0-12); NEUTROPHILS % (AUTO) 92 % (42-75); PLATELET COUNT 322 10^3/uL (130-400); POTASSIUM 4.2 MMOL/L (3.6-5.0)
[2022-04-17 06:29] LABS: CALCIUM 8.8 MG/DL (8.5-10.1)
[2022-04-17 06:30] LABS: TOTAL PROTEIN 6.4 GM/DL (6.4-8.2)
[2022-04-17 06:32] LABS: BILIRUBIN,TOTAL 0.3 MG/DL (0.1-1.0)
[2022-04-17 06:34] LABS: CREATININE SERUM 0.71 MG/DL (0.60-1.30)
[2022-04-17 06:37] LABS: MAGNESIUM 1.9 MG/DL (1.6-2.4)
[2022-04-17 07:43] VITALS: BP 131/78
[2022-04-17] MEDS: UMECLIDINIUM BROMIDE (INCRUSE ELLIPTA) 7'S IH SCH ×2 (08:21→08:23)
[2022-04-17] MEDS: RT--FLUTICASONE/SALMETEROL 232-14 (AIRDUO RespiCLICK) IH SCH (08:21)
[2022-04-17] MEDS: LORazepam 0.5 MG (ATIVAN) TABLET PO SCH (08:56)
[2022-04-17] MEDS: methylPREDNISolone 40 MG/ML (Solu-MEDROL) VIAL IV SCH (08:56)
[2022-04-17] MEDS: BENZONATATE 100 MG (TESSALON) CAPSULE PO SCH ×2 (08:57→12:33)
[2022-04-17] MEDS: TAMSULOSIN 0.4 MG (FLOMAX) CAP PO SCH (08:57)
[2022-04-17] MEDS: ROFLUMILAST 500 MCG TAB (DALIRESP) PO SCH (08:57)
[2022-04-17] MEDS: CEFDINIR 300 MG (OMNICEF) CAP PO SCH (08:57)
[2022-04-17] MEDS: LORATADINE (CLARITIN) 10 MG TAB PO SCH ×2 (08:57)
[2022-04-17] MEDS: SENNOSIDES 8.6 MG (SENOKOT) TAB PO SCH (08:57)
[2022-04-17] MEDS: DOCUSATE SODIUM 100 MG (COLACE) CAP PO SCH ×2 (08:58→12:35)
[2022-04-17] MEDS: GUAIFENESIN 400 MG PO SCH ×2 (09:00→12:33)
[2022-04-17 11:46] VITALS: BP 137/82
[2022-04-17] MEDS: MULTIVIT W/MINERALS TAB (THERAGRAN M) PO SCH (12:33)
[2022-04-17] MEDS: PROMETHAZINE 25 MG (PHENERGAN) TAB PO SCH (12:34)
[2022-04-17] MEDS: CALCIUM CARB + VIT D 600 MG (CALCARB + D) TAB PO SCH (12:35)
--- NOTE | 2022-04-17 12:42 | Discharge Summary ---
Diagnosis/Chief Complaint Date of Admission Apr 13, 2022 at 14:05 Date of Discharge Discharge Summary-Simple/Stand Consultations Discharge Physical Examination Allergies: Coded Allergies: fentanyl (Verified Allergy, Unknown, SOA, 06/10/16) carisoprodol (Verified Adverse Reaction, Unknown, MEAN, 06/10/16) codeine (Verified Adverse Reaction, Unknown, MEAN, 06/10/16) tramadol (Verified Adverse Reaction, Unknown, FORGETFUL, 06/10/16) Vitals & I&Os Vital Sign - Last 12Hours Date Time Temp Pulse Resp B/P (MAP) Pulse Ox O2 Delivery O2 Flow Rate FiO2 04/17/22 11:46 36.6 102 19 137/82 (100) 92 Nasal Cannula 4.00 04/15/22 21:26 40 Intake and Output 04/17/22 00:00 Intake Total 1380 ml Output Total 1100 ml Balance 280 ml Hospital Course See final discharge diagnosis. Discharge Instructions to patient/family Please see electronic discharge instructions given to patient. Discharge Medications Reviewed and agree with Discharge Medication list on patient's Discharge Instruction sheet RO HALL MD Apr 17, 2022 12:42
--- NOTE | 2022-04-17 12:44 | Discharge Summary ---
Discharge [facility] Reconcile Patient Problems Problems Reviewed?: Yes Discharge Medications New, Converted or Re-Newed RX: Transmitted to Pharmacy New Medications: Cefdinir (Cefdinir) 300 Mg Capsule 300 MG PO BID, #10 CAP Prednisone (Prednisone) 10 Mg Tab.ds.pk 10 MG PO DAILY, #21 EA Take 6 tabs(60mg)daily,decrease by 1 tab(10MG)daily. Benzonatate (Tessalon Perles) 100 Mg Capsule 200 MG PO TID, #30 CAP Doxycycline Hyclate (Doxycycline Hyclate) 100 Mg Tablet 100 MG PO BID@07,17, #12 TAB Continued Medications: Acetylcysteine (Nac) 500 Mg Capsule 500 MG PO BID, CAP Albuterol Sulfate (Ventolin Hfa) 18 Gm Hfa.aer.ad 2 PUFF INH Q6H PRN for SHORTNESS OF BREATH, INHALER Albuterol Sulfate (Albuterol Sulfate) 2.5 Mg/3 Ml (0.083 %) Vial.neb 2.5 MG NEB Q6H, EA Aspirin/Acetaminophen/Caffeine (Excedrin Extra Strength Caplet) 250 Mg-250 Mg-65 Mg Tablet 2 TAB PO DAILY, TAB Baclofen (Baclofen) 10 Mg Tablet 10 MG PO 1200,1800, TAB Baclofen (Baclofen) 10 Mg Tablet 10 MG PO DAILY PRN for MUSCLE CRAMPS, TAB Budesonide/Glycopyr/Formoterol (Breztri Aerosphere Inhaler) 160 Mcg-9 Mcg-4.8 Mcg/Actuation Hfa.aer.ad 2 EA PO BID, EA Calcium Carbonate/Vitamin D3 (Calcium 600 + Vit D 200 Tablet) 600 Mg Calcium-5 Mcg (200 Unit) Tablet 2 EA PO 1200, TAB Cetirizine HCl (Zyrtec) 10 Mg Tablet 10 MG PO DAILY, TAB Citalopram Hydrobromide (Citalopram HBr) 20 Mg Tablet 20 MG PO DAILY, TAB Docusate Sodium (Colace) 100 Mg Capsule 100 MG PO 1200, CAP Glucosa Kurtz 2Kcl/Chondroitin Kurtz (Glucosamine & Chondroitin Cap) 500 Mg-400 Mg Capsule 1 EACH PO 1200, CAP Guaifenesin (Mucus Relief) 400 Mg Tablet 800 MG PO TID, TAB TAKES 2 (400MG) TABS Hydrocodone/Acetaminophen (Hydrocodone-Acetamin 10-325 mg) 10 Mg-325 Mg Tablet 1-2 EA PO TID PRN for PAIN-BREAKTHROUGH, TAB Lorazepam (Ativan) 0.5 Mg Tablet 0.5 MG PO DAILY, TAB Montelukast Sodium (Montelukast Sodium) 10 Mg Tablet 10 MG PO HS, TAB Morphine Sulfate (Morphine Sulfate ER) 60 Mg Tablet.er 60 MG PO 0200,1400, TAB Multivitamin with Minerals (Men's One Daily) 1 Each Tablet 1 TAB PO 1200, TAB Omeprazole (Omeprazole) 20 Mg Capsule.dr 20 MG PO DAILY, CAP Promethazine HCl (Promethazine Tablet) 25 Mg Tablet 25 MG PO 1200,1800, TAB Roflumilast (Daliresp) 500 Mcg Tablet 500 MCG PO DAILY, TAB Tamsulosin HCl (Flomax) 0.4 Mg Cap 0.4 MG PO DAILY, CAP Turmeric Root Extract (Turmeric) 500 Mg Tablet 1000 MG PO DAILY, TAB Discontinued Medications: Doxycycline Hyclate (Doxycycline Hyclate) 100 Mg Tablet 100 MG PO BID, TAB FILLED 04-10-2022 #14/7 DAY SUPPLY Prednisone (Prednisone) 50 Mg Tab 50 MG PO DAILY, TAB FILLED 04-10-2022 #5/5 DAY SUPPLY Patient Instructions Goal/Follow Up Appt: 1-2 weeks with PCP Activity & Diet Discharge Diet: Cardiac Diet Activity as Tolerated: Yes RO HALL MD Apr 17, 2022 12:44
[2022-04-17] MEDS: BACLOFEN 10 MG (LIORESAL) TAB PO SCH (12:47)
--- NOTE | 2022-04-17 14:46 | Discharge Summary ---
Discharge Summary Reconcile Patient Problems Problems Reviewed?: Yes Instructions for Patient Via Ali, Assessment/Instructions Acute on chronic Respiratory failure AECOPD PNA Hypercapnea Normocytic Anemia HTN GERD DM Physician to follow Patient: Heurter Discharge Diet for Home: Cardiac Diet Hospital Course Date of Admission: Apr 13, 2022 at 14:05 Admission Diagnosis : Family Physician/Provider: Sammy Andersen MD Date of Discharge: 04/17/22 Discharge Diagnosis: Acute on Chronic Respiratory Failure AECOPD PNA Hypercapneia Normocytic Anemia HTN GERD DM Labs and Pending Lab Test: Laboratory Tests 04/16/22 16:03: Glucometer 186H 04/16/22 20:42: Glucometer 153H 04/17/22 04:53: Glucometer 160H 04/17/22 06:10: White Blood Count 13.0H, Red Blood Count 4.27L, Hemoglobin 11.8L, Hematocrit 38L , Mean Corpuscular Volume 90, Mean Corpuscular Hemoglobin 28, Mean Corpuscular Hemoglobin Concent 31L, Red Cell Distribution Width 15.9H, Platelet Count 322, Mean Platelet Volume 9.6, Immature Granulocyte % (Auto) 1, Neutrophils (%) (Auto) 92H, Lymphocytes (%) (Auto) 3L, Monocytes (%) (Auto) 4, Eosinophils (%) (Auto) 0, Basophils (%) (Auto) 0, Neutrophils # (Auto) 12.0H, Lymphocytes # (Auto) 0.4L, Monocytes # (Auto) 0.5, Eosinophils # (Auto) 0.0, Basophils # (Auto) 0.0, Immature Granulocyte # (Auto) 0.1, Sodium Level 141, Potassium Level 4.2, Chloride Level 95L, Carbon Dioxide Level 39H, Anion Gap 7, Blood Urea Nitrogen 20H, Creatinine 0.71, Estimat Glomerular Filtration Rate 104, BUN/Creatinine Ratio 28, Glucose Level 162H, Calcium Level 8.8, Corrected Calcium 9.4, Magnesium Level 1.9, Total Bilirubin 0.3, Aspartate Amino Transf (AST/SGOT) 17, Alanine Aminotransferase (ALT/SGPT) 27, Alkaline Phosphatase 48, Total Protein 6.4, Albumin 3.3 04/17/22 10:50: Glucometer 138H Microbiology 04/13/22 Blood Culture - Preliminary, Resulted No growth Home Meds Active Cefdinir 300 Mg Capsule 300 Mg PO BID Prednisone 10 Mg Tab.ds.pk 10 Mg PO DAILY Take 6 tabs(60mg)daily,decrease by 1 tab(10MG)daily. Tessalon Perles (Benzonatate) 100 Mg Capsule 200 Mg PO TID Doxycycline Hyclate 100 Mg Tablet 100 Mg PO BID@07,17 Reported Glucosamine & Chondroitin Cap (Glucosa Kurtz 2Kcl/Chondroitin Kurtz) 500 Mg-400 Mg Capsule 1 Each PO 1200 Nac (Acetylcysteine) 500 Mg Capsule 500 Mg PO BID Turmeric (Turmeric Root Extract) 500 Mg Tablet 1,000 Mg PO DAILY Flomax (Tamsulosin HCl) 0.4 Mg Cap 0.4 Mg PO DAILY Daliresp (Roflumilast) 500 Mcg Tablet 500 Mcg PO DAILY Breztri Aerosphere Inhaler (Budesonide/Glycopyr/Formoterol) 160 Mcg-9 Mcg-4.8 Mcg/Actuation Hfa.aer.ad 2 Ea PO BID Baclofen 10 Mg Tablet 10 Mg PO DAILY PRN Hydrocodone-Acetamin 10-325 mg (Hydrocodone/Acetaminophen) 10 Mg-325 Mg Tablet 1-2 Ea PO TID PRN Ativan (Lorazepam) 0.5 Mg Tablet 0.5 Mg PO DAILY Albuterol Sulfate 2.5 Mg/3 Ml (0.083 %) Vial.neb 2.5 Mg NEB Q6H Ventolin Hfa (Albuterol Sulfate) 18 Gm Hfa.aer.ad 2 Puff INH Q6H PRN Montelukast Sodium 10 Mg Tablet 10 Mg PO HS Zyrtec (Cetirizine HCl) 10 Mg Tablet 10 Mg PO DAILY Calcium 600 + Vit D 200 Tablet (Calcium Carbonate/Vitamin D3) 600 Mg Calcium-5 Mcg (200 Unit) Tablet 2 Ea PO 1200 Men's One Daily (Multivitamin with Minerals) 1 Each Tablet 1 Tab PO 1200 Colace (Docusate Sodium) 100 Mg Capsule 100 Mg PO 1200 Excedrin Extra Strength Caplet (Aspirin/Acetaminophen/Caffeine) 250 Mg-250 Mg-65 Mg Tablet 2 Tab PO DAILY Citalopram HBr (Citalopram Hydrobromide) 20 Mg Tablet 20 Mg PO DAILY Omeprazole 20 Mg Capsule.dr 20 Mg PO DAILY Morphine Sulfate ER (Morphine Sulfate) 60 Mg Tablet.er 60 Mg PO 0200,1400 Mucus Relief (Guaifenesin) 400 Mg Tablet 800 Mg PO TID TAKES 2 (400MG) TABS Promethazine Tablet (Promethazine HCl) 25 Mg Tablet 25 Mg PO 1200,1800 Baclofen 10 Mg Tablet 10 Mg PO 1200,1800 Patient Allergies: Coded Allergies: fentanyl (Verified Allergy, Unknown, SOA, 06/10/16) carisoprodol (Verified Adverse Reaction, Unknown, MEAN, 06/10/16) codeine (Verified Adverse Reaction, Unknown, MEAN, 06/10/16) tramadol (Verified Adverse Reaction, Unknown, FORGETFUL, 06/10/16) Height (Feet): 5 Height (Inches): 8.00 Weight (Pounds): 200 Weight (Ounces): 0.0 New Medications: Cefdinir (Cefdinir) 300 Mg Capsule 300 MG PO BID, #10 CAP Prednisone (Prednisone) 10 Mg Tab.ds.pk 10 MG PO DAILY, #21 EA Take 6 tabs(60mg)daily,decrease by 1 tab(10MG)daily. Benzonatate (Tessalon Perles) 100 Mg Capsule 200 MG PO TID, #30 CAP Doxycycline Hyclate (Doxycycline Hyclate) 100 Mg Tablet 100 MG PO BID@,17, #12 TAB Continued Medications: Acetylcysteine (Nac) 500 Mg Capsule 500 MG PO BID, CAP Albuterol Sulfate (Ventolin Hfa) 18 Gm Hfa.aer.ad 2 PUFF INH Q6H PRN for SHORTNESS OF BREATH, INHALER Albuterol Sulfate (Albuterol Sulfate) 2.5 Mg/3 Ml (0.083 %) Vial.neb 2.5 MG NEB Q6H, EA Aspirin/Acetaminophen/Caffeine (Excedrin Extra Strength Caplet) 250 Mg-250 Mg-65 Mg Tablet 2 TAB PO DAILY, TAB Baclofen (Baclofen) 10 Mg Tablet 10 MG PO 1200,1800, TAB Baclofen (Baclofen) 10 Mg Tablet 10 MG PO DAILY PRN for MUSCLE CRAMPS, TAB Budesonide/Glycopyr/Formoterol (Breztri Aerosphere Inhaler) 160 Mcg-9 Mcg-4.8 Mcg/Actuation Hfa.aer.ad 2 EA PO BID, EA Calcium Carbonate/Vitamin D3 (Calcium 600 + Vit D 200 Tablet) 600 Mg Calcium-5 Mcg (200 Unit) Tablet 2 EA PO 1200, TAB Cetirizine HCl (Zyrtec) 10 Mg Tablet 10 MG PO DAILY, TAB Citalopram Hydrobromide (Citalopram HBr) 20 Mg Tablet 20 MG PO DAILY, TAB Docusate Sodium (Colace) 100 Mg Capsule 100 MG PO 1200, CAP Glucosa Kurtz 2Kcl/Chondroitin Kurtz (Glucosamine & Chondroitin Cap) 500 Mg-400 Mg Capsule 1 EACH PO 1200, CAP Guaifenesin (Mucus Relief) 400 Mg Tablet 800 MG PO TID, TAB TAKES 2 (400MG) TABS Hydrocodone/Acetaminophen (Hydrocodone-Acetamin 10-325 mg) 10 Mg-325 Mg Tablet 1-2 EA PO TID PRN for PAIN-BREAKTHROUGH, TAB Lorazepam (Ativan) 0.5 Mg Tablet 0.5 MG PO DAILY, TAB Montelukast Sodium (Montelukast Sodium) 10 Mg Tablet 10 MG PO HS, TAB Morphine Sulfate (Morphine Sulfate ER) 60 Mg Tablet.er 60 MG PO 0200,1400, TAB Multivitamin with Minerals (Men's One Daily) 1 Each Tablet 1 TAB PO 1200, TAB Omeprazole (Omeprazole) 20 Mg Capsule.dr 20 MG PO DAILY, CAP Promethazine HCl (Promethazine Tablet) 25 Mg Tablet 25 MG PO 1200,1800, TAB Roflumilast (Daliresp) 500 Mcg Tablet 500 MCG PO DAILY, TAB Tamsulosin HCl (Flomax) 0.4 Mg Cap 0.4 MG PO DAILY, CAP Turmeric Root Extract (Turmeric) 500 Mg Tablet 1000 MG PO DAILY, TAB Discontinued Medications: Doxycycline Hyclate (Doxycycline Hyclate) 100 Mg Tablet 100 MG PO BID, TAB FILLED 04-10-2022 #14/7 DAY SUPPLY Prednisone (Prednisone) 50 Mg Tab 50 MG PO DAILY, TAB FILLED 04-10-2022 #5/5 DAY SUPPLY Home Health Need/Face to Face Date of Face to Face: Apr 17, 2022 Clinical Findings: Muscle weakness, Shortness of breath, Unsteady gait I have seen Pt [id number]: Yes Discharged To: Home Diagnosis/Conditions: See Above Patient is Homebound due to: Vivian fall risk due to instabilty, Shortness of breath/distress Homebound Status Due to the above stated illness, injury or surgical procedure (medical condition or diagnosis) and associated clinical findings, the patient is homebound because of his/her inability to leave home except with aid of a supportive device and/or person AND leaving the home requires a considerable and taxing effort or is medically contraindicated. Pt req the following assistanc: Aid of another person Home Health Nursing Orders Home Health Services Order: Nursing Services, Physical Therapy-Evaluate & Treat Home Health Infusion Therapy Line Start Date: Apr 14, 2022 Therapy Orders Therapy Orders: PT to assess for OT Therapy Specific Orders: Increase strength/endurance Certify Stmt I certify that this patient is under my care and that I, a nurse practitioner or a physician; a assistant professor of biology working with me, had a face to face encounter that - meets the physician face to face encounter requirements with this patient as dated. Discharge Physical Exam General: Alert, Oriented X3, No Acute Distress Lungs: Other (Basilar crackles on RLL, Normal work of breathing) Heart: Regular Rate, No Murmurs Abdomen: Normal Bowel Sounds, Soft, No Tenderness Extremities: No Edema, No Tenderness/Swelling Skin: No Rashes Neuro: Normal Speech, Cranial Nerves 3-12 NL Psych/Mental Status: Mental Status NL, Mood NL RO HALL MD Apr 17, 2022 14:46
[2022-04-17] MEDS: aCETylcysteine 20% (MUCOMYST) 4 ML SOLN VIAL PO SCH (14:49)
[2022-04-17] MEDS: ALPRAZolam 0.5 MG (XANAX) TAB PO PRN (14:57)
[2022-04-17 15:24] VITALS: BP 137/82
[2022-04-17 15:26] VITALS: BP 137/82
== END 2022-04-17 15:26 | disposition home health service (06) | DRG 193 ==
LOC: EDUNIT# 11:40 → ER 11:42 → CSD 14:05 → 4TH 04-15 14:55
PROVIDERS: ADMIT Internal Medicine; ATTEND Family Medicine
PROC: 5A09357 Assistance with Respiratory Ventilation, Less than 24 Consecutive Hours, Continuous Positive Airway Pressure (ICD-10-PCS; principal; 2022-04-13)
PROC: 5A0935A Assistance with Respiratory Ventilation, Less than 24 Consecutive Hours, High Flow/Velocity Cannula (ICD-10-PCS; 2022-04-13)
DX: J15.9 Unspecified bacterial pneumonia (principal); J96.21 Acute and chronic respiratory failure with hypoxia; J96.22 Acute and chronic respiratory failure with hypercapnia; D64.9 Anemia, unspecified; I10 Essential (primary) hypertension; K21.9 Gastro-esophageal reflux disease without esophagitis; E11.9 Type 2 diabetes mellitus without complications; Z20.822 Contact with and (suspected) exposure to COVID-19; Z87.891 Personal history of nicotine dependence; J43.9 Emphysema, unspecified; G89.29 Other chronic pain; M54.9 Dorsalgia, unspecified; E03.9 Hypothyroidism, unspecified; Z79.82 Long term (current) use of aspirin; Z79.899 Other long term (current) drug therapy; Z96.651 Presence of right artificial knee joint
CPT/HCPCS: 36410; 36415; 36600; 71045; 76937; 80053; 82805; 82947; 83605; 83735; 84100; 85007; 85025; 85027; 87040; 87636; 93005; 93041; 94640; 94660; 94760

== ENCOUNTER 2022-06-01 09:00 | Inpatient (IN) | payer MEDICARE ==
[~2022-06-01] VITALS: Ht 172 cm; Wt 81.6 kg
[~2022-06-01 09:00] MED LIST changes: +ACET500C41 PO; +BENZ100C18 PO; +BUDE10.7 PO; +CEFD300C3 PO; +DOXY100T2 PO; +HYDR-3820 PO; +LORA-404 PO; +PRD50T PO; +PRED10TA22 PO; +ROFL500T PO; +TURM500T PO
[2022-06-01] MEDS ORDERED: methylPREDNISolone 125 MG (Solu-MEDROL) VIAL IV STA (09:06)
[2022-06-01] MEDS ORDERED: ADENOSINE 6 MG/2 ML (ADENOCARD) VIAL IV ONE (09:12)
[2022-06-01] MEDS ORDERED: RT-ALBUTEROL/IPRATROPIUM 3 ML (DUONEB) VIAL INH ONE (09:15)
[2022-06-01] MEDS ORDERED: dilTIAZem DRIP PRE-MIX 125 ML IV ONE (09:17)
[2022-06-01] MEDS ORDERED: NS IV 1000 ML 1,000 ML ONE (09:21)
[2022-06-01 09:31] LABS: BASOPHILS # (AUTO) 0.1 10^3/uL (0.0-0.1); BASOPHILS % (AUTO) 0 % (0-10); EOSINOPHILS % (AUTO) 0 % (0-10); HEMATOCRIT 38 % (40-54); HEMOGLOBIN 11.6 g/dL (13.3-17.7); LYMPHOCYTES # (AUTO) 0.3 10^3/uL (1.0-4.0); LYMPHOCYTES % (AUTO) 1 % (12-44); MEAN CORPUSCULAR HEMOGLOBIN 28 pg (25-34); MEAN CORPUSCULAR HGB CONC 31 g/dL (32-36); MEAN CORPUSCULAR VOLUME 91 fL (80-99); MEAN PLATELET VOLUME 9.3 fL (9.0-12.2); MONOCYTES % (AUTO) 3 % (0-12); NEUTROPHILS # (AUTO) 29.8 10^3/uL (1.8-7.8); NEUTROPHILS % (AUTO) 95 % (42-75); PLATELET COUNT 297 10^3/uL (130-400)
[2022-06-01 09:35] LABS: WHITE BLOOD COUNT 31.5 10^3/uL (4.3-11.0)
--- NOTE | 2022-06-01 09:36 | ED Respiratory ---
General Chief Complaint: Respiratory Problems Stated Complaint: SOA Nursing Triage Note: PT ARRIVED PER EMS, PT CO OF SOA, PT IS GETTING DUONEB UPON ARRIVAL. SAT AT HOME 81% ON 2L FOR EMS. PT HAS HR 160. PT RR 48. PT IS AWAKE AND ALERT. PT STATES FAMILY AT HOME HAS BEEN SICK. DENIES FEVERS. PT PUT ON NRB D/T DECREASED O2 SAT. PT STATES IS A FULL CODE. PT IS VERY PALE IN COLOR. PT HAS SL IN PLACE IN R WRIST #22 BY EMS. History of Present Illness Date Seen by Provider: Jun 01, 2022 Time Seen by Provider: 09:00 Initial Comments 61-year-old male brought in by EMS with shortness of breath. Patient's had s hortness of breath for the last couple days where he reports has been sick. Patient has known sick contacts in the house. EMS reports patient is normally on 2 L was around 79 to 81%. He had a very rapid heart rate he received a DuoNeb in route and his oxygen improved 100%. He did still remain in moderate respiratory distress. Patient denies any reports of fever. Patient is pursed lip breathing and has difficulty communicating much further HPI Allergies and Home Medications Allergies Coded Allergies: fentanyl (Verified Allergy, Unknown, SOA, 06/10/16) carisoprodol (Verified Adverse Reaction, Unknown, MEAN, 06/10/16) codeine (Verified Adverse Reaction, Unknown, MEAN, 06/10/16) tramadol (Verified Adverse Reaction, Unknown, FORGETFUL, 06/10/16) Patient Home Medication List Home Medication List Reviewed: Yes Acetylcysteine (Nac) 500 Mg Capsule, 500 MG PO BID, (Reported) Entered as Reported by: ADONIS LEPE on 04/14/22 1212 Albuterol Sulfate (Ventolin Hfa) 18 Gm Hfa.aer.ad, 2 PUFF INH Q6H PRN for SHORTNESS OF BREATH, (Reported) Entered as Reported by: REGIS WU on 06/11/18 1750 Albuterol Sulfate (Albuterol Sulfate) 2.5 Mg/3 Ml (0.083 %) Vial.neb, 2.5 MG NEB Q6H, (Reported) Entered as Reported by: REGIS WU on 06/11/18 1750 Aspirin/Acetaminophen/Caffeine (Excedrin Extra Strength Caplet) 250 Mg-250 Mg-65 Mg Tablet, 2 TAB PO DAILY, (Reported) Entered as Reported by: REGIS WU on 06/11/18 175 Baclofen (Baclofen) 10 Mg Tablet, 10 MG PO 1200,1800, (Reported) Entered as Reported by: CHARLEY DELATORRE on 06/11/16 0422 Baclofen (Baclofen) 10 Mg Tablet, 10 MG PO DAILY PRN for MUSCLE CRAMPS, (Reported) Entered as Reported by: ADONIS LEPE on 04/14/22 1212 Benzonatate (Tessalon Perles) 100 Mg Capsule, 200 MG PO TID Prescribed by: MADISON BOURNE on 04/15/22 110 Budesonide/Glycopyr/Formoterol (Breztri Aerosphere Inhaler) 160 Mcg-9 Mcg-4.8 Mcg/Actuation Hfa.aer.ad, 2 EA PO BID, (Reported) Entered as Reported by: ADONIS LEPE on 04/14/22 121 Calcium Carbonate/Vitamin D3 (Calcium 600 + Vit D 200 Tablet) 600 Mg Calcium-5 Mcg (200 Unit) Tablet, 2 EA PO 1200, (Reported) Entered as Reported by: REGIS WU on 06/11/18 175 Cefdinir (Cefdinir) 300 Mg Capsule, 300 MG PO BID Prescribed by: MADISON BOURNE on 04/15/22 110 Cetirizine HCl (Zyrtec) 10 Mg Tablet, 10 MG PO DAILY, (Reported) Entered as Reported by: REGIS WU on 06/11/18 175 Citalopram Hydrobromide (Citalopram HBr) 20 Mg Tablet, 20 MG PO DAILY, (Reported) Entered as Reported by: KELVIN SORIA on 06/12/16 1147 Docusate Sodium (Colace) 100 Mg Capsule, 100 MG PO 1200, (Reported) Entered as Reported by: REGIS WU on 06/11/18 175 Doxycycline Hyclate (Doxycycline Hyclate) 100 Mg Tablet, 100 MG PO BID@ Prescribed by: MADISON BOURNE on 04/15/22 1102 Glucosa Kurtz 2Kcl/Chondroitin Kurtz (Glucosamine & Chondroitin Cap) 500 Mg-400 Mg Cap dianne, 1 EACH PO 1200, (Reported) Entered as Reported by: ADONIS LEPE on 04/14/22 121 Guaifenesin (Mucus Relief) 400 Mg Tablet, 800 MG PO TID, (Reported) Entered as Reported by: KELVIN SORIA on 06/12/16 114 Hydrocodone/Acetaminophen (Hydrocodone-Acetamin 10-325 mg) 10 Mg-325 Mg Tablet, 1-2 EA PO TID PRN for PAIN-BREAKTHROUGH, (Reported) Entered as Reported by: ADONIS LEPE on 04/14/22 121 Lorazepam (Ativan) 0.5 Mg Tablet, 0.5 MG PO DAILY, (Reported) Entered as Reported by: ADONIS LEPE on 04/14/22 121 Montelukast Sodium (Montelukast Sodium) 10 Mg Tablet, 10 MG PO HS, (Reported) Entered as Reported by: REGIS WU on 06/11/18 175 Morphine Sulfate (Morphine Sulfate ER) 60 Mg Tablet.er, 60 MG PO 0200,1400, (Reported) Entered as Reported by: KELVIN SORIA on 06/12/16 114 Multivitamin with Minerals (Men's One Daily) 1 Each Tablet, 1 TAB PO 1200, (Reported) Entered as Reported by: REGIS WU on 06/11/18 175 Omeprazole (Omeprazole) 20 Mg Capsule.dr, 20 MG PO DAILY, (Reported) Entered as Reported by: KELVIN SORIA on 06/12/16 114 Prednisone (Prednisone) 10 Mg Tab.ds.pk, 10 MG PO DAILY Prescribed by: MADISON BOURNE on 04/15/22 1102 Promethazine HCl (Promethazine Tablet) 25 Mg Tablet, 25 MG PO 1200,1800, (Reported) Entered as Reported by: CHARLEY DELATORRE on 06/11/16 0422 Roflumilast (Daliresp) 500 Mcg Tablet, 500 MCG PO DAILY, (Reported) Entered as Reported by: ADONIS LEPE on 04/14/22 121 Tamsulosin HCl (Flomax) 0.4 Mg Cap, 0.4 MG PO DAILY, (Reported) Entered as Reported by: ADONIS LEPE on 04/14/22 121 Turmeric Root Extract (Turmeric) 500 Mg Tablet, 1,000 MG PO DAILY, (Reported) Entered as Reported by: ADONIS LEPE on 04/14/22 1212 Review of Systems Review of Systems Constitutional: No chills, No fever; malaise Respiratory: cough, short of breath, wheezing Cardiovascular: No chest pain, No palpitations Gastrointestinal: No abdominal pain, No nausea, No vomiting Musculoskeletal: no symptoms reported Skin: no symptoms reported Psychiatric/Neurological: No Symptoms Reported Hematologic/Lymphatic: No Symptoms Reported Immunological/Allergic: no symptoms reported Past Rifmhlk-Yzvptz-Uonfjb Hx Patient Social History Tobacco Use?: No Smoking Status: Former Smoker Substance use?: No Alcohol Use?: No Pt feels they are or have been: No Immunizations Up To Date Tetanus Booster (TDap): Unknown Influenza Vaccine Up-to-Date: Yes; Up-to-Date First/Initial COVID19 Vaccinat: T Second COVID19 Vaccination [place]: T Third COVID19 Vaccination Date: T Seasonal Allergies Seasonal Allergies: No Past Medical History Surgery/Hospitalization HX: COPD Surgeries: Yes (right knee partial replacement) Respiratory: Yes Chronic Bronchitis, COPD Currently Using CPAP: Yes Currently Using BIPAP: No Cardiac: Yes High Cholesterol, Hypertension Neurological: No Reproductive Disorders: No Sexually Transmitted Disease: No HIV/AIDS: No Genitourinary: No Gastrointestinal: No Gastroesophageal Reflux Musculoskeletal: Yes (BONE SPURS, SPINA BIFIDA) Chronic Back Pain Endocrine: Yes Hypothyroidsim HEENT: No Cancer: No Psychosocial: No Integumentary: No Blood Disorders: No Family Medical History Cancer 03 FATHER, Onset:Unknown 03 MOTHER, Onset:Unknown Cataract 03 MOTHER, Onset:Unknown Chest pain 03 MOTHER, Onset:Unknown Congenital heart disease Congestive heart failure 03 MOTHER, Onset:Unknown Family history: Allergy 03 MOTHER, Onset:Unknown Family history: Arthritis 03 FATHER, Onset:Unknown 03 MOTHER Family history: Asthma 03 MOTHER, Onset:Unknown Family history: Breast disease 03 MOTHER, Onset:Unknown Family history: Cardiovascular disease 03 MOTHER, Onset:Unknown Family history: Glaucoma 03 FATHER, Onset:Unknown Family history: Hypertension 03 MOTHER, Onset:Unknown Headache 09 SISTER, Onset:Unknown Heart disease 03 MOTHER, Onset:Unknown History of - respiratory disease 03 MOTHER, Onset:Unknown History of drug abuse 09 SISTER, Onset:Unknown Hypercholesterolemia 03 FATHER, Onset:Unknown 03 MOTHER, Onset:Unknown Malignant neoplasm of lung 03 FATHER, Onset:Unknown Stroke 03 MOTHER, Onset:60 years & older No Family History of: Abdominal aortic aneurysm [place]'s disease Alcoholism Aphasia Cancer of colon Cystic fibrosis Dementia Dysphagia Family history: Alzheimer's disease Family history: Coronary thrombosis Family history: Diabetes mellitus Family history: Gastrointestinal disease Family history: Osteoporosis Family history: Thyroid disorder Hearing loss Hereditary disease History of - anemia History of - disorder Human immunodeficiency virus (HIV) seropositivity Infertile Kidney disease Myocardial infarction Parkinson's disease Prostate cancer Psychotic disorder Seizure disorder Tuberculosis Visual impairment Cancer, Lung Disease Physical Exam Vital Signs - First Documented 06/01/22 09:00 Temp 38.3 Pulse 161 Resp 52 B/P (MAP) 201/96 (131) Pulse Ox 84 O2 Delivery Non Rebreather O2 Flow Rate 10.00 Capillary Refill : Less Than 3 Seconds Height: 5'8.00" Weight: 200lbs. 0.0oz. 90.939582gd; 26.00 BMI Method:Stated General Appearance: moderate distress, obese Respiratory: respiratory distress, decreased breath sounds, wheezing, other (Pursed lip breathing) Cardiovascular: normal peripheral pulses, regular rate, rhythm Gastrointestinal: non tender, soft Neurologic/Psychiatric: alert Skin: pallor Lymphatic: no adenopathy Focused Exam Lactate Level 06/01/22 09:15: Lactic Acid Level 1.37 Lactic Acid Level Laboratory Tests Test 06/01/22 09:15 Lactic Acid Level 1.37 MMOL/L (0.50-2.00) Progress/Results/Core Measures Suspected Sepsis Infection Criteria Present: Suspected New Infection Within 3hrs of presentation: Admin fluids, Admin ABX, Blood cultures prior to ABX's, Lactate level SIRS Temperature: Pulse: 161 Respiratory Rate: 52 Laboratory Tests 06/01/22 09:15: White Blood Count 31.5*H Blood Pressure 201 /96 Mean: 131 06/01/22 09:15: Lactic Acid Level 1.37 Laboratory Tests 06/01/22 09:15: Creatinine 0.77, Platelet Count 297, Total Bilirubin 0.4 Results/Orders Lab Results Laboratory Tests Test 06/01/22 09:15 06/01/22 09:23 06/01/22 09:33 Range/Units White Blood Count 31.5 *H 4.3-11.0 10^3/uL Red Blood Count 4.17 L 4.30-5.52 10^6/uL Hemoglobin 11.6 L 13.3-17.7 g/dL Hematocrit 38 L 40-54 % Mean Corpuscular Volume 91 80-99 fL Mean Corpuscular Hemoglobin 28 25-34 pg Mean Corpuscular Hemoglobin Concent 31 L 32-36 g/dL Red Cell Distribution Width 16.0 H 10.0-14.5 % Platelet Count 297 130-400 10^3/uL Mean Platelet Volume 9.3 9.0-12.2 fL Immature Granulocyte % (Auto) 1 % Neutrophils (%) (Auto) 95 H 42-75 % Lymphocytes (%) (Auto) 1 L 12-44 % Monocytes (%) (Auto) 3 0-12 % Eosinophils (%) (Auto) 0 0-10 % Basophils (%) (Auto) 0 0-10 % Neutrophils # (Auto) 29.8 H 1.8-7.8 10^3/uL Lymphocytes # (Auto) 0.3 L 1.0-4.0 10^3/uL Monocytes # (Auto) 1.0 0.0-1.0 10^3/uL Eosinophils # (Auto) 0.0 0.0-0.3 10^3/uL Basophils # (Auto) 0.1 0.0-0.1 10^3/uL Immature Granulocyte # (Auto) 0.3 H 0.0-0.1 10^3/uL Neutrophils % (Manual) 93 % Lymphocytes % (Manual) 1 % Monocytes % (Manual) 1 % Eosinophils % (Manual) 0 % Basophils % (Manual) 0 % Band Neutrophils 5 % Anisocytosis SLIGHT Sodium Level 138 135-145 MMOL/L Potassium Level 4.0 3.6-5.0 MMOL/L Chloride Level 92 L 98-107 MMOL/L Carbon Dioxide Level 33 H 21-32 MMOL/L Anion Gap 13 5-14 MMOL/L Blood Urea Nitrogen 12 7-18 MG/DL Creatinine 0.77 0.60-1.30 MG/DL Estimat Glomerular Filtration Rate 101 BUN/Creatinine Ratio 16 Glucose Level 139 H 70-105 MG/DL Lactic Acid Level 1.37 0.50-2.00 MMOL/L Calcium Level 9.9 8.5-10.1 MG/DL Corrected Calcium 10.0 8.5-10.1 MG/DL Total Bilirubin 0.4 0.1-1.0 MG/DL Aspartate Amino Transf (AST/SGOT) 23 5-34 U/L Alanine Aminotransferase (ALT/SGPT) 19 0-55 U/L Alkaline Phosphatase 82 40-136 U/L C-Reactive Protein High Sensitivity 5.23 H 0.00-0.50 MG/DL Total Protein 8.3 H 6.4-8.2 GM/DL Albumin 3.9 3.2-4.5 GM/DL Influenza Type A (RT-PCR) Not Detected Not Detecte Influenza Type B (RT-PCR) Not Detected Not Detecte SARS-CoV-2 RNA (RT-PCR) Not Detected Not Detecte Blood Gas Puncture Site LT WRIST Blood Gas Patient Temperature 100.1 Arterial Blood pH 7.35 L 7.37-7.43 Arterial Blood Partial Pressure CO2 69 H 35-45 MMHG Arterial Blood Partial Pressure O2 133 H 79-93 MMHG Arterial Blood HCO3 37 H 23-27 MMOL/L Arterial Blood Total CO2 38.6 H 21.0-31.0 MMOL/L Arterial Blood Oxygen Saturation 99 94-100 % Arterial Blood Base Excess 10.8 H -2.5-2.5 MMOL/L Jeff Test YES-POS Blood Gas Ventilator Setting NO Blood Gas Inspired Oxygen 50% BIPAP My Orders Orders - GRANGER,PALMIRA L DO Cbc With Automated Diff (06/01/22 09:06) Comprehensive Metabolic Panel (06/01/22 09:06) Hs C Reactive Protein (06/01/22 09:06) Albuterol/Ipra Inhalation Soln (Duoneb I (06/01/22 09:15) Methylprednisolone Sod Succ (Solu-Medrol (06/01/22 09:06) Svn Small Volume Nebulizer (06/01/22 09:06) Chest 1 View, Ap/Pa Only (06/01/22 09:06) Ekg Tracing (06/01/22 09:06) O2 (06/01/22 09:06) Monitor-Rhythm Ecg Trace Only (06/01/22 09:06) Influenza A And B By Pcr (06/01/22 09:06) Covid 19 Inhouse Test (06/01/22 09:06) Adenosine Injection (Adenocard Injection (06/01/22 09:12) Diltiazem Injection (Cardizem Injection) (06/01/22 09:15) Diltiazem Drip Pre-Mix (Cardizem Drip Pr (06/01/22 09:17) Ns Iv 1000 Ml (Sodium Chloride 0.9%) (06/01/22 09:21) Arterial Blood Gas (06/01/22 09:24) Lactic Acid Analyzer (06/01/22 09:24) Blood Culture (06/01/22 09:24) Manual Differential (06/01/22 09:15) Ceftriaxone 1 Gm Pre-Mix (Rocephin 1 Gm (06/01/22 09:45) Azithromycin Injection (Zithromax Inject (06/01/22 09:45) Ed Admission (Communication) (06/01/22 10:21) Medications Given in ED Current Medications Medications Dose Ordered Sig/Anaid Route Start Time Stop Time Status Last Admin Dose Admin Adenosine 6 mg STK-MED ONCE IV 06/01/22 09:12 06/01/22 09:14 DC 06/01/22 09:15 6 MG Albuterol/ Ipratropium 3 ml ONCE ONCE INH 06/01/22 09:15 06/01/22 09:16 DC 06/01/22 09:30 3 ML Azithromycin 500 mg/Sodium Chloride 255 ml @ 250 mls/hr ONCE ONCE IV 06/01/22 09:45 06/01/22 10:46 DC 06/01/22 09:54 250 MLS/HR Ceftriaxone Sodium/Dextrose 50 ml @ 100 mls/hr ONCE ONCE IV 06/01/22 09:45 06/01/22 10:14 DC 06/01/22 09:53 100 MLS/HR Diltiazem HCl 25 mg STK-MED ONCE .ROUTE 06/01/22 09:15 06/01/22 09:17 DC 06/01/22 09:16 25 MG Sodium Chloride 1,000 ml @ ud STK-MED ONCE .ROUTE 06/01/22 09:21 06/01/22 09:23 DC 06/01/22 09:25 1,000 MLS/HR Vital Signs/I&O 06/01/22 06/01/22 06/01/22 06/01/22 09:00 09:00 09:16 09:26 Temp 38.3 Pulse 161 160 Resp 52 B/P (MAP) 201/96 (131) 201/101 Pulse Ox 84 84 O2 Delivery Non Rebreather Non Rebreather Nasal Cannula O2 Flow Rate 10.00 2.00 06/01/22 10:06 Pulse 130 Resp 22 Pulse Ox 97 O2 Flow Rate 50.00 Capillary Refill : Less Than 3 Seconds Blood Pressure Mean: 131 Progress Note : Progress Note Patient was in significant distress upon arrival. Patient was placed shortly upon BiPAP and had significant improvement. Patient's x-ray was reviewed and shows a pneumonia likely on the right side. Patient's labs were reviewed and showed elevated white count. Patient is negative for COVID influenza. Patient heart rate was extremely tacky upon arrival. An initial dose of adenosine slowed down to where it appeared to be more of a atrial fib. 20 Cardizem was given. Patient had some mild decrease in heart rate and it appeared to become more sinus tachycardia. Patient was provided with IV fluids and BiPAP. His heart rate was slowly improving. Patient was pursed lip breathing that resolved with the BiPAP. Patient to be admitted to ICU to Dr. Jackson. I discussed case with Dr. Jackson. He was significantly better and stable upon transfer to the ICU. ECG Initial ECG Impression Date: Jun 01, 2022 Initial ECG Impression Time: 09:17 Initial ECG Rate: 154 Initial ECG Rhythm: S.Tach Initial ECG Impression: Nonspecific Changes Comment Sinus tach, difficult EKG due to patient's breathing. Abnormalities likely related to rate. Diagnostic Imaging Diagonstic Imaging: Xray Plain Films/CT/US/NM/MRI: chest Comments Date of Exam:06/01/22 CHEST 1 VIEW, AP/PA ONLY INDICATION: Shortness of breath. Compared 04/14/2022 FINDINGS: Bilateral interstitial opacities and parenchymal density showed mild progression in the periphery of the mid right lung. Remaining foci unchanged. The heart size stable. Metallic opacities project over the left thorax in unchanged fashion. IMPRESSION: 1. Bilateral interstitial infiltrates showed an increase in the right mid lung from prior. Much of the disease may be stable and chronic, however, new or progressive pneumonia in the right mid lung laterally suspected given the change. 2. No failure pattern or acute pleural pathology. Reviewed: Reviewed by Me, Reviewed/Discussed Critical Care Note Critical Care Progress Patient had significant improvement in his respiratory distress. Patient's still mildly tacky with a negative lactic. He does have pneumonia and was treated with Rocephin and azithromycin. Patient will be admitted to ICU since he is on BiPAP. He is stable upon admission. Departure Communication (Admissions) Time/Spoke to Admitting Phy: 10:[address] Jackson. We will admit patient to ICU. She will write admission orders. Patient was stable upon transfer Impression Primary Impression: Pneumonia Qualified Codes: J18.9 - Pneumonia, unspecified organism Additional Impression: COPD with acute exacerbation Disposition: 30 STILL A PATIENT Condition: Critical Admissions Decision to Admit Reason: Admit from ER (General) Decision to Admit/Date: Jun 01, 2022 Time/Decision to Admit Time: 10:15 Departure-Patient Inst. Referrals: SARA CONROY MD (PCP/Family) Primary Care Physician PALMIRA GRANGER DO Jun 01, 2022 09:36
[2022-06-01 09:43] LABS: ABG BASE EXCESS 10.8 MMOL/L (-2.5-2.5); ABG OXYGEN SATURATION 99 % (94-100); ABG PCO2 69 MMHG (35-45); ABG PH 7.35 (7.37-7.43); ABG PO2 133 MMHG (79-93); ABG TCO2 38.6 MMOL/L (21.0-31.0)
[2022-06-01 09:44] LABS: ALLENS TEST YES-POS; INSPIRED O2 50% BIPAP
[2022-06-01 09:45] LABS: PATIENT TEMP 100.1; VENTILATOR NO
[2022-06-01] MEDS ORDERED: AZITHROMYCIN INJECTION 500 MG in NS (IVPB) 250 ML IV ONE (09:45)
[2022-06-01] MEDS ORDERED: cefTRIAXone 1 GM PRE-MIX 50 ML IV ONE (09:45)
[2022-06-01 09:47] LABS: ALBUMIN 3.9 GM/DL (3.2-4.5); BILIRUBIN,TOTAL 0.4 MG/DL (0.1-1.0); CALCIUM 9.9 MG/DL (8.5-10.1); CREATININE SERUM 0.77 MG/DL (0.60-1.30); TOTAL PROTEIN 8.3 GM/DL (6.4-8.2)
[2022-06-01 10:00] LABS: ANISOCYTOSIS SLIGHT; BAND NEUTROPHILS 5 %; BASOPHILS % (MANUAL) 0 %; EOSINOPHILS % (MANUAL) 0 %; LYMPHOCYTES % (MANUAL) 1 %; MONOCYTES % (MANUAL) 1 %; NEUTROPHILS % (MANUAL) 93 %
--- NOTE | 2022-06-01 10:00 | Diagnostic Imaging Report ---
INDICATION: Shortness of breath. Compared 04/14/2022 FINDINGS: Bilateral interstitial opacities and parenchymal density showed mild progression in the periphery of the mid right lung. Remaining foci unchanged. The heart size stable. Metallic opacities project over the left thorax in unchanged fashion. IMPRESSION: 1. Bilateral interstitial infiltrates showed an increase in the right mid lung from prior. Much of the disease may be stable and chronic, however, new or progressive pneumonia in the right mid lung laterally suspected given the change. 2. No failure pattern or acute pleural pathology. Dictated by: Dictated on workstation # [id number]
[2022-06-01 10:06] VITALS: BP 116/70
[2022-06-01] MEDS ORDERED: RT-ALBUTEROL/IPRATROPIUM 3 ML (DUONEB) VIAL ONE (11:07)
[2022-06-01 11:21] VITALS: BP 116/70
--- NOTE | 2022-06-01 13:18 | History & Physical ---
JOSÉ MIGUEL RODRIGUEZ 06/01/22 1318: History of Present Illness History of Present Illness Reason for visit/HPI Mr. Alonso is a 61 year old male with a PMHx of COPD, HTN, HLD, GERD, hypothyroidism, and diastolic heart failure presented to the [facility] ED on 06/01 with a chief concern of SOA. The patient reports he chronically has a cough with SOA and uses 2L supplemental O2 at home. Patient states for the past few days he has been increasingly SOA. Patient used his breathing treatments at home with some improvement of symptoms, however patient continued to decline from baseline. Patient states he thinks there is a viral illness going through his home. Patient states he was treated 2wks ago for similar symptoms. Upon arrival to the ED the patient was hypoxic with SpO2 79-81%. Duoneb and solu-medrol was administered and BiPAP therapy initiated. The patient is being admitted to the Hospitalist service for management of acute respiratory failure with hypoxia and respiratory acidosis, likely secondary to AECOPD and R middle lobe PNA. Date of Admission Jun 01, 2022 at 10:22 Date Seen by a Provider: Jun 01, 2022 Time Seen by a Provider: 13:10 I consulted on this patient on 06/01/22 13:10 Attending Physician Sammy Andersen MD Admitting Physician Admitting Physician: Avani Nunn MD Attending Physician: Avani Nunn MD Consult Allergies and Home Medications Allergies Coded Allergies: fentanyl (Verified Allergy, Unknown, SOA, 06/10/16) carisoprodol (Verified Adverse Reaction, Unknown, MEAN, 06/10/16) codeine (Verified Adverse Reaction, Unknown, MEAN, 06/10/16) tramadol (Verified Adverse Reaction, Unknown, FORGETFUL, 06/10/16) Patient Home Medication List Home Medication List Reviewed: Yes Acetylcysteine (Nac) 500 Mg Capsule, 500 MG PO BID, (Reported) Entered as Reported by: ADONIS LEPE on 04/14/22 1212 Last Action: Converted Albuterol Sulfate (Ventolin Hfa) 18 Gm Hfa.aer.ad, 2 PUFF INH Q6H PRN for SHORTNESS OF BREATH, (Reported) Entered as Reported by: REGIS WU on 06/11/18 1750 Last Action: Reviewed Albuterol Sulfate (Albuterol Sulfate) 2.5 Mg/3 Ml (0.083 %) Vial.neb, 2.5 MG NEB Q6H PRN for SHORTNESS OF BREATH, (Reported) Entered as Reported by: REGIS WU on 06/11/181749 Last Action: Reviewed Aspirin/Acetaminophen/Caffeine (Excedrin Extra Strength Caplet) 250 Mg-250 Mg-65 Mg Tablet, 2 TAB PO DAILY, (Reported) Entered as Reported by: REGIS WU on 06/11/181749 Last Action: Held Baclofen (Baclofen) 10 Mg Tablet, 10 MG PO 1200,1800, (Reported) Entered as Reported by: CHARLEY DELATORRE on 06/11/16421 Last Action: Continued Baclofen (Baclofen) 10 Mg Tablet, 10 MG PO DAILY PRN for MUSCLE CRAMPS, (Reported) Entered as Reported by: ADONIS LEPE on 04/14/221211 Last Action: Continued Budesonide/Glycopyr/Formoterol (Breztri Aerosphere Inhaler) 160 Mcg-9 Mcg-4.8 Mcg/Actuation Hfa.aer.ad, 2 EA PO BID, (Reported) Entered as Reported by: ADONIS LEPE on 04/14/221211 Last Action: Converted Calcium Carbonate/Vitamin D3 (Calcium 600 + Vit D 200 Tablet) 600 Mg Calcium-5 Mcg (200 Unit) Tablet, 2 EA PO 1200, (Reported) Entered as Reported by: REGIS WU on 06/11/181749 Last Action: Held Cetirizine HCl (Zyrtec) 10 Mg Tablet, 10 MG PO DAILY, (Reported) Entered as Reported by: REGIS WU on 06/11/181749 Last Action: Converted Citalopram Hydrobromide (Citalopram HBr) 20 Mg Tablet, 20 MG PO DAILY, (Reported) Entered as Reported by: KELVIN SORIA on 06/12/16 1147 Last Action: Reviewed Docusate Sodium (Colace) 100 Mg Capsule, 100 MG PO BID PRN for CONSTIPATION-1ST LINE, (Reported) Entered as Reported by: REGIS WU on 06/11/181749 Last Action: Continued Glucosa Kurtz 2Kcl/Chondroitin Kurtz (Glucosamine & Chondroitin Cap) 500 Mg-400 Mg Capsule, 1 EACH PO 1200, (Reported) Entered as Reported by: ADONIS LEPE on 04/14/221211 Last Action: Held Guaifenesin (Mucus Relief) 400 Mg Tablet, 800 MG PO TID, (Reported) Entered as Reported by: KELVIN SORIA on 06/12/161146 Last Action: Converted Hydrocodone/Acetaminophen (Hydrocodone-Acetamin 10-325 mg) 10 Mg-325 Mg Tablet, 1-2 EA PO TID PRN for PAIN-BREAKTHROUGH, (Reported) Entered as Reported by: ADONIS LEPE on 04/14/221211 Last Action: Continued Lorazepam (Ativan) 0.5 Mg Tablet, 0.5 MG PO BID PRN for ANXIETY, (Reported) Entered as Reported by: ADONIS LEPE on 04/14/221211 Last Action: Continued Montelukast Sodium (Montelukast Sodium) 10 Mg Tablet, 10 MG PO HS, (Reported) Entered as Reported by: REGIS WU on 06/11/18 1750 Last Action: Continued Morphine Sulfate (Morphine Sulfate ER) 60 Mg Tablet.er, 60 MG PO 0200,1400, (Reported) Entered as Reported by: KELVIN SORIA on 06/12/161146 Last Action: Converted Multivitamin with Minerals (Multivitamins with Minerals) 1 Each Tablet, 1 EACH PO 1200, (Reported) Entered as Reported by: ADONIS LEPE on 06/01/22 1543 Last Action: Held Omeprazole (Omeprazole) 20 Mg Capsule.dr, 20 MG PO DAILY, (Reported) Entered as Reported by: KELVIN SORIA on 06/12/161146 Last Action: Reviewed Promethazine HCl (Promethazine Tablet) 25 Mg Tablet, 25 MG PO 1200,1800, (Reported) Entered as Reported by: CHARLEY DELATORRE on 06/11/16 0422 Last Action: Held Roflumilast (Daliresp) 500 Mcg Tablet, 500 MCG PO DAILY, (Reported) Entered as Reported by: ADONIS LEPE on 04/14/221211 Last Action: Continued Tamsulosin HCl (Flomax) 0.4 Mg Cap, 0.4 MG PO DAILY, (Reported) Entered as Reported by: ADONIS LEPE on 04/14/221211 Last Action: Continued Turmeric Root Extract (Turmeric) 500 Mg Tablet, 1,000 MG PO DAILY, (Reported) Entered as Reported by: ADONIS LEPE on 04/14/22 121 Last Action: Held Discontinued Medications Benzonatate (Tessalon Perles) 100 Mg Capsule, 200 MG PO TID Discontinued Reason: No Longer Taking Prescribed by: MADISON BOURNE on 04/15/221101 Last Action: Discontinued Cefdinir (Cefdinir) 300 Mg Capsule, 300 MG PO BID Discontinued Reason: No Longer Taking Prescribed by: MADISON BOURNE on 04/15/221101 Last Action: Discontinued Doxycycline Hyclate (Doxycycline Hyclate) 100 Mg Tablet, 100 MG PO BID@ Discontinued Reason: No Longer Taking Prescribed by: MADISON BOURNE on 04/15/221101 Last Action: Discontinued Prednisone (Prednisone) 10 Mg Tab.ds.pk, 10 MG PO DAILY Discontinued Reason: Duplicate Order Prescribed by: MADISON BOURNE on 04/15/221101 Last Action: Discontinued Past Tnxoqtw-Imcave-Ngners Hx Patient Social History Marrital Status: Tobacco Use?: No Smoking Status: Former Smoker Substance use?: No Alcohol Use?: No Pt feels they are or have been: No Immunizations Up To Date Date of Influenza Vaccine: Jan 30, 2022 First/Initial COVID19 Vaccinat: T Second COVID19 Vaccination [place]: T Tetanus Booster (TDap): Unknown Date of Pneumonia Vaccine: Apr 01, 2016 Seasonal Allergies Seasonal Allergies: No Current Status Advance Directives: No Communicates: Verbally Primary Language: Telugu Preferred Spoken Language: Telugu Is interpretation needed?: No Implanted or Applied Medical D: Orthopedic hardware Past Medical History Chronic Bronchitis, COPD Currently Using CPAP: Yes Currently Using BIPAP: No High Cholesterol, Hypertension Sexually Transmitted Disease: No HIV/AIDS: No Gastroesophageal Reflux Chronic Back Pain Hypothyroidsim Blood Disorders: No COPD HTN Chronic pain Family Medical History Cancer 03 FATHER, Onset:Unknown 03 MOTHER, Onset:Unknown Cataract 03 MOTHER, Onset:Unknown Chest pain 03 MOTHER, Onset:Unknown Congenital heart disease Congestive heart failure 03 MOTHER, Onset:Unknown Family history: Allergy 03 MOTHER, Onset:Unknown Family history: Arthritis 03 FATHER, Onset:Unknown 03 MOTHER Family history: Asthma 03 MOTHER, Onset:Unknown Family history: Breast disease 03 MOTHER, Onset:Unknown Family history: Cardiovascular disease 03 MOTHER, Onset:Unknown Family history: Glaucoma 03 FATHER, Onset:Unknown Family history: Hypertension 03 MOTHER, Onset:Unknown Headache 09 SISTER, Onset:Unknown Heart disease 03 MOTHER, Onset:Unknown History of - respiratory disease 03 MOTHER, Onset:Unknown History of drug abuse 09 SISTER, Onset:Unknown Hypercholesterolemia 03 FATHER, Onset:Unknown 03 MOTHER, Onset:Unknown Malignant neoplasm of lung 03 FATHER, Onset:Unknown Stroke 03 MOTHER, Onset:60 years & older No Family History of: Abdominal aortic aneurysm Justyn's disease Alcoholism Aphasia Cancer of colon Cystic fibrosis Dementia Dysphagia Family history: Alzheimer's disease Family history: Coronary thrombosis Family history: Diabetes mellitus Family history: Gastrointestinal disease Family history: Osteoporosis Family history: Thyroid disorder Hearing loss Hereditary disease History of - anemia History of - disorder Human immunodeficiency virus (HIV) seropositivity Infertile Kidney disease Myocardial infarction Parkinson's disease Prostate cancer Psychotic disorder Seizure disorder Tuberculosis Visual impairment Cancer, Lung Disease Review of Systems Constitutional: No chills, No dizziness, No fever; malaise; No weakness EENTM: No blurred vision, No vision loss Respiratory: cough, short of breath Cardiovascular: no symptoms reported; No edema Gastrointestinal: no symptoms reported; No abdominal pain, No constipation, No diarrhea, No nausea, No vomiting Genitourinary: no symptoms reported Musculoskeletal: no symptoms reported Skin: other (ecchymosis on R lower leg s/p tripping over his dog) Psychiatric/Neurological: No Symptoms Reported; Denies Headache Physical Exam Vital Signs Vital Signs - First Documented 06/01/22 06/01/22 09:00 12:00 Temp 38.3 Pulse 161 Resp 52 B/P (MAP) 201/96 (131) Pulse Ox 84 O2 Delivery Non Rebreather O2 Flow Rate 10.00 FiO2 35 Capillary Refill : Less Than 3 Seconds Height, Weight, BMI Height: 5'8.00" Weight: 200lbs. 0.0oz. [id number]; 27.78 BMI Method:Stated General Appearance: Mild Distress (requiring 10L supplemental O2, pursing lips with exhalation) Respiratory: No Accessory Muscle Use, Other (extended expiratory phase, coarse breath sounds bilaterally, mild expiratory wheezing) Cardiovascular: Tachycardia, Other (regular rhythm) Gastrointestinal: Normal Bowel Sounds, Non Tender, Soft Neurologic/Psychiatric: Alert Skin: Normal Color, Warm/Dry Assessment/Plan Assessment and Plan Problems: (1) Acute respiratory failure Status: Acute Qualifiers: Qualified Codes: J96.01 - Acute respiratory failure with hypoxia; J96.02 - Acute respiratory failure with hypercapnia Assessment & Plan: Acute respiratory failure with hypoxia and respiratory acidosis likely secondary to AECOPD and R middle lobe PNA -Close monitoring. Patient was in BiPAP therapy when transferred to the ICU. Patient was placed on 10L supplemental O2 to eat, will repeat ABG to re-assess hypercapnia/acidosis. Resume BiPAP if ABG has not improved -Duoneb breathing treatments with RT -Ceftriaxone and azithromycin therapies -Steroid therapy, either Prednisone PO or Solu-medrol IV -PT/OT services (2) Diastolic heart failure Status: Chronic Assessment & Plan: Close monitoring for signs of fluid overload -Increase SOA -Peripheral edema -Close monitoring of amount and rate of IVF (3) Pneumonia Status: Acute Qualifiers: Qualified Codes: J18.9 - Pneumonia, unspecified organism Assessment & Plan: Acute respiratory failure with hypoxia and respiratory acidosis likely secondary to AECOPD and R middle lobe PNA -Close monitoring. Patient was in BiPAP therapy when transferred to the ICU. Patient was placed on 10L supplemental O2 to eat, will repeat ABG to re-assess hypercapnia/acidosis. Resume BiPAP if ABG has not improved -Duoneb breathing treatments with RT -Ceftriaxone and azithromycin therapies -Steroid therapy, either Prednisone PO or Solu-medrol IV -PT/OT services (4) COPD with acute exacerbation Status: Acute Assessment & Plan: Acute respiratory failure with hypoxia and respiratory acidosis likely secondary to AECOPD and R middle lobe PNA -Close monitoring. Patient was in BiPAP therapy when transferred to the ICU. Patient was placed on 10L supplemental O2 to eat, will repeat ABG to re-assess hypercapnia/acidosis. Resume BiPAP if ABG has not improved -Duoneb breathing treatments with RT -Ceftriaxone and azithromycin therapies -Steroid therapy, either Prednisone PO or Solu-medrol IV -PT/OT services (5) DVT prophylaxis Status: Acute Assessment & Plan: Lovenox 40mg SC qd SCDs in place Increase ambulation as tolerated (6) Sepsis Status: Acute Qualifiers: Qualified Codes: A41.9 - Sepsis, unspecified organism Assessment & Plan: Patient meets SIRS criteria with fever and leukocytosis. There is no evidence of organ failure at this time. Continue close monitoring and appreciate plan per acute respiratory failure Admission Diagnosis Admission Status: Inpatient Order (span 2 midnights) AVANI NUNN MD 06/01/221950: Allergies and Home Medications Allergies Coded Allergies: fentanyl (Verified Allergy, Unknown, SOA, 06/10/16) carisoprodol (Verified Adverse Reaction, Unknown, MEAN, 06/10/16) codeine (Verified Adverse Reaction, Unknown, MEAN, 06/10/16) tramadol (Verified Adverse Reaction, Unknown, FORGETFUL, 06/10/16) Patient Home Medication List Acetylcysteine (Nac) 500 Mg Capsule, 500 MG PO BID, (Reported) Entered as Reported by: ADONIS LEPE on 04/14/221211 Last Action: Converted Albuterol Sulfate (Ventolin Hfa) 18 Gm Hfa.aer.ad, 2 PUFF INH Q6H PRN for SHORTNESS OF BREATH, (Reported) Entered as Reported by: REGIS WU on 06/11/181749 Last Action: Reviewed Albuterol Sulfate (Albuterol Sulfate) 2.5 Mg/3 Ml (0.083 %) Vial.neb, 2.5 MG NEB Q6H PRN for SHORTNESS OF BREATH, (Reported) Entered as Reported by: REGIS WU on 06/11/181749 Last Action: Reviewed Aspirin/Acetaminophen/Caffeine (Excedrin Extra Strength Caplet) 250 Mg-250 Mg-65 Mg Tablet, 2 TAB PO DAILY, (Reported) Entered as Reported by: REGIS WU on 06/11/181749 Last Action: Held Baclofen (Baclofen) 10 Mg Tablet, 10 MG PO 1200,1800, (Reported) Entered as Reported by: CHARLEY DELATORRE on 06/11/162 Last Action: Continued Baclofen (Baclofen) 10 Mg Tablet, 10 MG PO DAILY PRN for MUSCLE CRAMPS, (Reported) Entered as Reported by: ADONIS LEPE on 04/14/221211 Last Action: Continued Budesonide/Glycopyr/Formoterol (Breztri Aerosphere Inhaler) 160 Mcg-9 Mcg-4.8 Mcg/Actuation Hfa.aer.ad, 2 EA PO BID, (Reported) Entered as Reported by: ADONIS LEPE on 04/14/221211 Last Action: Converted Calcium Carbonate/Vitamin D3 (Calcium 600 + Vit D 200 Tablet) 600 Mg Calcium-5 Mcg (200 Unit) Tablet, 2 EA PO 1200, (Reported) Entered as Reported by: REGIS WU on 06/11/181749 Last Action: Held Cetirizine HCl (Zyrtec) 10 Mg Tablet, 10 MG PO DAILY, (Reported) Entered as Reported by: REGIS WU on 06/11/181749 Last Action: Converted Citalopram Hydrobromide (Citalopram HBr) 20 Mg Tablet, 20 MG PO DAILY, (Reported) Entered as Reported by: KELVIN SORIA on 06/12/161146 Last Action: Reviewed Docusate Sodium (Colace) 100 Mg Capsule, 100 MG PO BID PRN for CONSTIPATION-1ST LINE, (Reported) Entered as Reported by: REGIS WU on 06/11/181749 Last Action: Continued Glucosa Kurtz 2Kcl/Chondroitin Kurtz (Glucosamine & Chondroitin Cap) 500 Mg-400 Mg Capsule, 1 EACH PO 1200, (Reported) Entered as Reported by: ADONIS LEPE on 04/14/221211 Last Action: Held Guaifenesin (Mucus Relief) 400 Mg Tablet, 800 MG PO TID, (Reported) Entered as Reported by: KELVIN SORIA on 06/12/161146 Last Action: Converted Hydrocodone/Acetaminophen (Hydrocodone-Acetamin 10-325 mg) 10 Mg-325 Mg Tablet, 1-2 EA PO TID PRN for PAIN-BREAKTHROUGH, (Reported) Entered as Reported by: ADONIS LEPE on 04/14/221211 Last Action: Continued Lorazepam (Ativan) 0.5 Mg Tablet, 0.5 MG PO BID PRN for ANXIETY, (Reported) Entered as Reported by: ADONIS LEPE on 04/14/221211 Last Action: Continued Montelukast Sodium (Montelukast Sodium) 10 Mg Tablet, 10 MG PO HS, (Reported) Entered as Reported by: REGIS WU on 06/11/181749 Last Action: Continued Morphine Sulfate (Morphine Sulfate ER) 60 Mg Tablet.er, 60 MG PO 0200,1400, (Reported) Entered as Reported by: KELVIN SORIA on 06/12/161146 Last Action: Converted Multivitamin with Minerals (Multivitamins with Minerals) 1 Each Tablet, 1 EACH PO 1200, (Reported) Entered as Reported by: ADONIS LEPE on 06/01/22 1543 Last Action: Held Omeprazole (Omeprazole) 20 Mg Capsule.dr, 20 MG PO DAILY, (Reported) Entered as Reported by: KELVIN SORIA on 06/12/16 1147 Last Action: Reviewed Promethazine HCl (Promethazine Tablet) 25 Mg Tablet, 25 MG PO 1200,1800, (Reported) Entered as Reported by: CHARLEY DELATORRE on 06/11/16 0422 Last Action: Held Roflumilast (Daliresp) 500 Mcg Tablet, 500 MCG PO DAILY, (Reported) Entered as Reported by: ADONIS LEPE on 04/14/221211 Last Action: Continued Tamsulosin HCl (Flomax) 0.4 Mg Cap, 0.4 MG PO DAILY, (Reported) Entered as Reported by: ADONIS LEPE on 04/14/221211 Last Action: Continued Turmeric Root Extract (Turmeric) 500 Mg Tablet, 1,000 MG PO DAILY, (Reported) Entered as Reported by: ADONIS LEPE on 04/14/221211 Last Action: Held Discontinued Medications Benzonatate (Tessalon Perles) 100 Mg Capsule, 200 MG PO TID Discontinued Reason: No Longer Taking Prescribed by: MADISON BOURNE on 04/15/221101 Last Action: Discontinued Cefdinir (Cefdinir) 300 Mg Capsule, 300 MG PO BID Discontinued Reason: No Longer Taking Prescribed by: MADISON BOURNE on 04/15/221101 Last Action: Discontinued Doxycycline Hyclate (Doxycycline Hyclate) 100 Mg Tablet, 100 MG PO BID@ Discontinued Reason: No Longer Taking Prescribed by: MADISON BOURNE on 04/15/221101 Last Action: Discontinued Prednisone (Prednisone) 10 Mg Tab.ds.pk, 10 MG PO DAILY Discontinued Reason: Duplicate Order Prescribed by: MADISON BOURNE on 04/15/221101 Last Action: Discontinued Past Rnbhylu-Iycywh-Hdcyhg Hx Family Medical History Cancer 03 FATHER, Onset:Unknown 03 MOTHER, Onset:Unknown Cataract 03 MOTHER, Onset:Unknown Chest pain 03 MOTHER, Onset:Unknown Congenital heart disease Congestive heart failure 03 MOTHER, Onset:Unknown Family history: Allergy 03 MOTHER, Onset:Unknown Family history: Arthritis 03 FATHER, Onset:Unknown 03 MOTHER Family history: Asthma 03 MOTHER, Onset:Unknown Family history: Breast disease 03 MOTHER, Onset:Unknown Family history: Cardiovascular disease 03 MOTHER, Onset:Unknown Family history: Glaucoma 03 FATHER, Onset:Unknown Family history: Hypertension 03 MOTHER, Onset:Unknown Headache 09 SISTER, Onset:Unknown Heart disease 03 MOTHER, Onset:Unknown History of - respiratory disease 03 MOTHER, Onset:Unknown History of drug abuse 09 SISTER, Onset:Unknown Hypercholesterolemia 03 FATHER, Onset:Unknown 03 MOTHER, Onset:Unknown Malignant neoplasm of lung 03 FATHER, Onset:Unknown Stroke 03 MOTHER, Onset:60 years & older No Family History of: Abdominal aortic aneurysm Massac's disease Alcoholism Aphasia Cancer of colon Cystic fibrosis Dementia Dysphagia Family history: Alzheimer's disease Family history: Coronary thrombosis Family history: Diabetes mellitus Family history: Gastrointestinal disease Family history: Osteoporosis Family history: Thyroid disorder Hearing loss Hereditary disease History of - anemia History of - disorder Human immunodeficiency virus (HIV) seropositivity Infertile Kidney disease Myocardial infarction Parkinson's disease Prostate cancer Psychotic disorder Seizure disorder Tuberculosis Visual impairment Supervisory-Addendum Brief Verification & Attestation Participated in pt care: history, MDM, physical Personally performed: exam, history, MDM, supervision of care Care discussed with: Medical Student Procedures: n/a Verification and Attestation of Medical Student E/M Service A medical student performed and documented this service in my presence. I reviewed and verified all information documented by the medical student and made modifications to such information, when appropriate. I personally performed the physical exam and medical decision making. Avani Nunn, Jun 01, 2022,19:51 JOSÉ MIGUEL RODRIGUEZ Jun 01, 2022 13:18 AVANI NUNN MD Jun 01, 2022 19:51
[2022-06-01] MEDS: NS IV 1000 ML 1,000 ML IV SCH ×2 (13:35→19:49)
--- NOTE | 2022-06-01 14:38 | Tele-ICU Consult ---
History of Present Illness History of Present Illness Date Seen by Provider: Jun 01, 2022 Time Seen by Provider: 14:38 Date of Admission History of Present Illness (Tele-ICU Physician , consultation as per request of PCP Service provided via interactive audio and video telecommunTristar E-CARE system to a patient admitted to ICU bed in [facility]. Available chart/ vitals / labs / Images reviewed H&P is from ER notes Patient's information available about PMH, Shx, Fhx allergy reviewed inEMR. ROS as per chart and RN report Now in ICU, hemodynamically stable Video assessment done using teleICU camera, rest of exam as per RN Discussed with RN. Consultants: Hospital course: (06/01) 61M admitted for PNA. Placed on Bipap in ER. A/P Acute on chronic ( hypoxic and hypercapneic ) resp failure - NIPPV prn - steroids , ABX , nebs AECOPD ( with advanced severe COPD at baseline , O2 dependent 2 L O2 ) - IV steroids ( as per chart was d/c on prednisone 04/17/22 - nebs Leucocytosis with suspected PNA RLL ( negative for COVID influenza) - with recetly TX for PNA tachycardia HR 160s - received cardizem in ER - sinus in ICU Echo on 06/13/18: LVEF 55-60%, PASP 30 mmHg - monitor fluid status Anxiety - prn Tx Lines : periph , (Central Line Necessity Reviewed) [place]: void OG: Nutrition: as toleraes po Analgesia: Anxiety/ delirium VTE Prophylaxis: barbara Stress Ulcer Prophylaxis: ppi Glycemic Control: Plans in collaboration with bedside consultants and IM MDs. Discussed with RN to reach out if any questions or concerns A total of 32 minutes of critical care time was devoted to this patient today, required to treat and/or prevent further deterioration of critical care condition ( as above ) . I am remotely monitoring this patient from another state. I am unable to do the bedside exam, and history/physical and pertinent information is taken from other notes in the computer and bedside staff. . Allergies and Home Medications Allergies Coded Allergies: fentanyl (Verified Allergy, Unknown, SOA, 06/10/16) carisoprodol (Verified Adverse Reaction, Unknown, MEAN, 06/10/16) codeine (Verified Adverse Reaction, Unknown, MEAN, 06/10/16) tramadol (Verified Adverse Reaction, Unknown, FORGETFUL, 06/10/16) Home Medications Acetylcysteine 500 Mg Capsule, 500 MG PO BID, (Reported) Albuterol Sulfate 18 Gm Hfa.aer.ad, 2 PUFF INH Q6H PRN for SHORTNESS OF BREATH, (Reported) Albuterol Sulfate 2.5 Mg/3 Ml (0.083 %) Vial.neb, 2.5 MG NEB Q6H, (Reported) Aspirin/Acetaminophen/Caffeine 250 Mg-250 Mg-65 Mg Tablet, 2 TAB PO DAILY, (Reported) Baclofen 10 Mg Tablet, 10 MG PO 1200,1800, (Reported) Baclofen 10 Mg Tablet, 10 MG PO DAILY PRN for MUSCLE CRAMPS, (Reported) Benzonatate 100 Mg Capsule, 200 MG PO TID Prescribed by: MADISON BOURNE on 04/15/221101 Budesonide/Glycopyr/Formoterol 160 Mcg-9 Mcg-4.8 Mcg/Actuation Hfa.aer.ad, 2 EA PO BID, (Reported) Calcium Carbonate/Vitamin D3 600 Mg Calcium-5 Mcg (200 Unit) Tablet, 2 EA PO 1200, (Reported) Cefdinir 300 Mg Capsule, 300 MG PO BID Prescribed by: MADISON BOURNE on 04/15/221101 Cetirizine HCl 10 Mg Tablet, 10 MG PO DAILY, (Reported) Citalopram Hydrobromide 20 Mg Tablet, 20 MG PO DAILY, (Reported) Docusate Sodium 100 Mg Capsule, 100 MG PO 1200, (Reported) Doxycycline Hyclate 100 Mg Tablet, 100 MG PO BID@ Prescribed by: MADISON BOURNE on 04/15/221101 Glucosa Kurtz 2Kcl/Chondroitin Kurtz 500 Mg-400 Mg Capsule, 1 EACH PO 1200, (Reported) Guaifenesin 400 Mg Tablet, 800 MG PO TID, (Reported) TAKES 2 (400MG) TABS Hydrocodone/Acetaminophen 10 Mg-325 Mg Tablet, 1-2 EA PO TID PRN for PAIN- BREAKTHROUGH, (Reported) Lorazepam 0.5 Mg Tablet, 0.5 MG PO DAILY, (Reported) Montelukast Sodium 10 Mg Tablet, 10 MG PO HS, (Reported) Morphine Sulfate 60 Mg Tablet.er, 60 MG PO 0200,1400, (Reported) Multivitamin with Minerals 1 Each Tablet, 1 TAB PO 1200, (Reported) Omeprazole 20 Mg Capsule.dr, 20 MG PO DAILY, (Reported) Prednisone 10 Mg Tab.ds.pk, 10 MG PO DAILY Take 6 tabs(60mg)daily,decrease by 1 tab(10MG)daily. Prescribed by: MADISON BOURNE on 04/15/22 1102 Promethazine HCl 25 Mg Tablet, 25 MG PO 1200,1800, (Reported) Roflumilast 500 Mcg Tablet, 500 MCG PO DAILY, (Reported) Tamsulosin HCl 0.4 Mg Cap, 0.4 MG PO DAILY, (Reported) Turmeric Root Extract 500 Mg Tablet, 1,000 MG PO DAILY, (Reported) Past Medical/Social/Family Hx Patient Social History Marrital Status: Tobacco Use?: No Smoking Status: Former Smoker Substance use?: No Alcohol Use?: No Pt stated abuse/neglect: No Immunizations Up To Date Influenza Vaccine Up-to-Date: Yes; Up-to-Date First/Initial COVID19 Vaccinat: T Second COVID19 Vaccination [place]: T Tetanus Booster (TDap): Unknown Date of Pneumonia Vaccine: Apr 01, 2016 Current Status Advance Directives: No Communicates: Verbally Primary Language: Thai Preferred Spoken Language: Thai Is interpretation needed?: No Implanted or Applied Medical D: Orthopedic hardware Past Medical History COPD HTN Chronic pain Review of Systems Constitutional: see HPI Focused Exam Lactate Level 06/01/22 09:15: Lactic Acid Level 1.37 Height, Weight, BMI Height: 5'8.00" Weight: 200lbs. 0.0oz. 90.000130ts; 27.78 BMI Method:Stated Exam Exam Patient acknowledged, consented, and participated in this virtual visit which was conducted using real time audio/video Vital Signs Date Time Temp Pulse Resp B/P (MAP) Pulse Ox O2 Delivery O2 Flow Rate FiO2 06/01/22 14:00 108 128/72 (90) 99 Nasal Cannula 10.00 06/01/22 13:00 118 22 137/77 (97) 97 Nasal Cannula 10.00 06/01/22 12:45 118 18 123/25 (57) 97 Nasal Cannula 10.00 06/01/22 12:30 96 Nasal Cannula 10.00 06/01/22 12:30 118 19 126/76 (93) 95 Nasal Cannula 10.00 06/01/22 12:20 117 2/2/23 12:15 125 16 111/73 (86) 96 NIV Bilevel 35.00 06/01/22 12:00 NIV Bilevel 35 06/01/22 12:00 36.6 117 16 136/80 (98) 96 NIV Bilevel 35.00 06/01/22 11:32 38.3 130 22 116/70 94 Nasal Cannula 2.00 2.00 06/01/22 11:21 130 22 94 35.00 06/01/22 10:06 130 22 97 50.00 06/01/22 09:26 Nasal Cannula 2.00 06/01/22 09:16 160 201/101 06/01/22 09:00 38.3 161 52 201/96 (131) 84 Non Rebreather 06/01/22 09:00 84 Non Rebreather 10.00 Height & Weight Height: 5'8.00" Weight: 200lbs. 0.0oz. 90.305502vv; 27.78 BMI Method:Stated General Appearance: No Apparent Distress, Mild Distress (requiring 10L supplemental O2, pursing lips with exhalation) Respiratory: No Accessory Muscle Use, Other (extended expiratory phase, coarse breath sounds bilaterally, mild expiratory wheezing) Cardiovascular: Tachycardia, Other (regular rhythm) Capillary Refill: Less Than 3 Seconds Gastrointestinal: non tender, soft Neurologic/Psychiatric: Alert Skin: Normal Color, Warm/Dry Results Lab Laboratory Tests 06/01/22 09:15 Assessment/Plan Assessment/Plan 1 NATHEN DAMIAN MD Jun 01, 2022 14:38
[2022-06-01 15:42] VITALS: BP 144/95
[2022-06-01] MEDS ORDERED: MULT-166 PO (15:43)
[2022-06-01] MEDS: inSUlin ASPART (NovoLOG) 1 UNIT/0.01 ML (CHARGE PER UNIT) SC SCH ×2 (15:49→20:23)
[2022-06-01] MEDS: ENOXAPARIN 40 MG/0.4 ML (LOVENOX) SYR SC SCH (15:55)
[2022-06-01] MEDS ORDERED: DOCUSATE SODIUM 100 MG (COLACE) CAP PO PRN (17:00)
[2022-06-01] MEDS ORDERED: BACLOFEN 10 MG (LIORESAL) TAB PO PRN (17:00)
[2022-06-01] MEDS: LORazepam 0.5 MG (ATIVAN) TABLET PO PRN (17:23)
[2022-06-01] MEDS ORDERED: morphine ER 30 MG (MS CONTIN) TAB PO NR (17:45)
[2022-06-01] MEDS: methylPREDNISolone 125 MG (Solu-MEDROL) VIAL IVP SCH ×2 (17:47→23:21)
[2022-06-01] MEDS ORDERED: RT-ALBUTEROL/IPRATROPIUM 3 ML (DUONEB) VIAL INH SCH (18:00)
[2022-06-01] MEDS: BACLOFEN 10 MG (LIORESAL) TAB PO SCH (18:24)
[2022-06-01] MEDS ORDERED: RT-IPRATROPIUM (ATROVENT) 0.5MG/2.5ML AMP IH ONE (18:49)
[2022-06-01 18:59] VITALS: BP 119/66
[2022-06-01] MEDS: MONTELUKAST 10 MG (SINGULAIR) TAB PO SCH (20:23)
[2022-06-01] MEDS: guaiFENesin (MUCINEX) 600 MG TAB PO SCH (20:24)
[2022-06-01] MEDS ORDERED: ACETYLCYSTEINE 500 MG PO SCH (21:00)
[2022-06-01] MEDS ORDERED: NON-FORMULARY MEDICATION 1 EA EA (Budesonide/Glycopyr/Formoterol (Breztri Aerosphere Inhal PO SCH (21:00)
[2022-06-01] MEDS ORDERED: GUAIFENESIN 800 MG PO SCH (21:00)
[2022-06-01] MEDS: RT-IPRATROPIUM (ATROVENT) 0.5MG/2.5ML AMP IH SCH (22:29)
[2022-06-01] MEDS: RT-ALBUTEROL SULF 2.5 MG/3 ML PRE-MIX VIAL INH SCH (22:30)
[2022-06-01] MEDS: aCETylcysteine 20% (MUCOMYST) 4 ML SOLN VIAL PO SCH (22:32)
[2022-06-01] MEDS: RT--FLUTICASONE/SALMETEROL 232-14 (AIRDUO RespiCLICK) IH SCH (22:32)
[2022-06-01 22:33] VITALS: BP 96/59
[2022-06-02] MEDS: NS IV 1000 ML 1,000 ML IV SCH (01:52)
[2022-06-02] MEDS: morphine ER 30 MG (MS CONTIN) TAB PO SCH ×2 (01:52→14:10)
[2022-06-02 01:54] LABS: ABG BASE EXCESS 9.6 MMOL/L (-2.5-2.5); ABG OXYGEN SATURATION 99 % (94-100); ABG PCO2 51 MMHG (35-45); ABG PH 7.44 (7.37-7.43); ABG PO2 98 MMHG (79-93); ABG TCO2 35.8 MMOL/L (21.0-31.0)
[2022-06-02 01:55] LABS: ALLENS TEST YES-POS; INSPIRED O2 35%; PATIENT TEMP 36.6; VENTILATOR NO
[2022-06-02] MEDS ORDERED: NON-FORMULARY MEDICATION 1 EA EA (Morphine Sulfate (Morphine Sulfate ER) 60 MG) PO SCH (02:00)
[2022-06-02] MEDS ORDERED: RT-ALBUTEROL/IPRATROPIUM 3 ML (DUONEB) VIAL INH PRN (02:15)
[2022-06-02 05:04] LABS: HEMATOCRIT 32 % (40-54); HEMOGLOBIN 9.9 g/dL (13.3-17.7); MEAN CORPUSCULAR HEMOGLOBIN 28 pg (25-34); MEAN CORPUSCULAR HGB CONC 31 g/dL (32-36); MEAN CORPUSCULAR VOLUME 90 fL (80-99); MEAN PLATELET VOLUME 9.9 fL (9.0-12.2); PLATELET COUNT 253 10^3/uL (130-400); WHITE BLOOD COUNT 27.7 10^3/uL (4.3-11.0)
[2022-06-02 05:41] LABS: ALBUMIN 3.1 GM/DL (3.2-4.5); BILIRUBIN,TOTAL 0.3 MG/DL (0.1-1.0); CREATININE SERUM 0.64 MG/DL (0.60-1.30); POTASSIUM 3.9 MMOL/L (3.6-5.0); TOTAL PROTEIN 6.8 GM/DL (6.4-8.2)
[2022-06-02 06:04] LABS: MAGNESIUM 1.7 MG/DL (1.6-2.4); PHOSPHORUS 2.7 MG/DL (2.3-4.7)
[2022-06-02] MEDS ORDERED: NS IV 500 ML 500 ML IV PRN (06:15)
[2022-06-02] MEDS: inSUlin ASPART (NovoLOG) 1 UNIT/0.01 ML (CHARGE PER UNIT) SC SCH ×4 (06:31→20:33)
[2022-06-02] MEDS: methylPREDNISolone 125 MG (Solu-MEDROL) VIAL IVP SCH ×4 (06:31→23:28)
[2022-06-02] MEDS: MAGNESIUM 1 GM/100 ML IVPB 100 ML IV SCH (06:32)
[2022-06-02] MEDS: RT-ALBUTEROL SULF 2.5 MG/3 ML PRE-MIX VIAL INH SCH ×6 (07:13→21:51)
[2022-06-02] MEDS: RT-IPRATROPIUM (ATROVENT) 0.5MG/2.5ML AMP IH SCH ×5 (07:13→21:51)
[2022-06-02] MEDS: RT--FLUTICASONE/SALMETEROL 232-14 (AIRDUO RespiCLICK) IH SCH ×2 (07:14→21:51)
[2022-06-02] MEDS: UMECLIDINIUM BROMIDE (INCRUSE ELLIPTA) 7'S IH SCH (07:14)
[2022-06-02] MEDS: LORATADINE (CLARITIN) 10 MG TAB PO SCH (08:11)
[2022-06-02] MEDS: guaiFENesin (MUCINEX) 600 MG TAB PO SCH ×3 (08:11→20:33)
[2022-06-02] MEDS: TAMSULOSIN 0.4 MG (FLOMAX) CAP PO SCH (08:11)
[2022-06-02] MEDS: PANTOPRAZOLE 40 MG (PROTONIX) TAB PO SCH (08:12)
[2022-06-02] MEDS: ROFLUMILAST 500 MCG TAB (DALIRESP) PO SCH (08:12)
[2022-06-02] MEDS ORDERED: NON-FORMULARY MEDICATION 1 EA EA (Cetirizine HCl (Zyrtec) 10 MG) PO SCH (09:00)
[2022-06-02] MEDS: aCETylcysteine 20% (MUCOMYST) 4 ML SOLN VIAL PO SCH ×2 (10:31→21:51)
[2022-06-02] MEDS: cefTRIAXone 1 GM PRE-MIX 50 ML IV SCH (11:30)
[2022-06-02] MEDS: AZITHROMYCIN INJECTION 500 MG in NS (IVPB) 250 ML IV SCH (12:00)
--- NOTE | 2022-06-02 12:11 | Tele-ICU Progress Note ---
Subjective Date Seen by a Provider: Jun 02, 2022 Time Seen by a Provider: 12:11 Subjective/Events-last exam (Tele-ICU Physician , Progress Note ) Service provided via interactive audio and video telecommunications E-CARE system to a patient admitted to ICU bed in [facility]. Patient is seen today due to persistent need of ICU care Available chart/ vitals / labs / Images reviewed Video assessment done using teleICU camera, rest of exam as per RN Discussed with RN Events overnight : Afebrile hemodynamically stable Respiratory - 10 L I/O = pos 1.5 l Drips: Pressors- no Consultants: Hospital course: (06/01) 61M admitted for PNA. Placed on Bipap in ER. 06/02 - 10 L o2 A/P Acute on chronic ( hypoxic and hypercapneic ) resp failure - NIPPV prn - steroids , ABX , nebs AECOPD ( with advanced severe COPD at baseline , O2 dependent 2 L O2 ) - IV steroids ( as per chart was d/c on prednisone 04/17/22 - nebs Leucocytosis with suspected PNA RLL ( negative for COVID influenza) - with recetly TX for PNA tachycardia HR 160s in ER , again this am - received cardizem in ER - sinus in ICU CAN BE DUE TO AGGRESSIVE BR-DILATORS TREATMENT + STEROIDS , WILL ADD CARDIZEM PO - MIGHT NEED TO BE DECREASE DOSE/STOP LATTER Echo on 06/13/18: LVEF 55-60%, PASP 30 mmHg - monitor fluid status Anxiety - prn Tx Lines : periph , (Central Line Necessity Reviewed) [place]: void OG: Nutrition: as toleraes po Analgesia: Anxiety/ delirium VTE Prophylaxis: barbara Stress Ulcer Prophylaxis: ppi Plans in collaboration with bedside consultants and IM MDs. Discussed with RN to reach out if any questions or concerns A total of 25 minutes of critical care time was devoted to this patient today, required to treat and/or prevent further deterioration of critical care condition ( as above ) . I am remotely monitoring this patient from another state. I am unable to do the bedside exam, and history/physical and pertinent information is taken from other notes in the computer and bedside staff. . Sepsis Event Evaluation Height, Weight, BMI Height: 5'8.00" Weight: 200lbs. 0.0oz. 90.914115al; 27.78 BMI Method:Stated Focused Exam Lactate Level 06/01/22 09:15: Lactic Acid Level 1.37 Exam Exam Patient acknowledged, consented, and participated in this virtual visit which was conducted using real time audio/video Vital Signs Date Time Temp Pulse Resp B/P (MAP) Pulse Ox O2 Delivery O2 Flow Rate FiO2 06/02/22 11:00 118 24 140/93 (119) 98 High Flow N/C 10.00 06/02/22 10:40 High Flow N/C 8.00 06/02/22 10:35 95 High Flow N/C 8.00 06/02/22 10:00 114 15 143/81 (100) 97 High Flow N/C 10.00 06/02/22 09:00 156 27 98 High Flow N/C 10.00 06/02/22 08:00 108 12 136/80 (96) 99 High Flow N/C 10.00 06/02/22 08:00 98 Vapotherm 8.00 06/02/22 07:53 36.5 06/02/22 07:20 High Flow N/C 8.00 06/02/22 07:15 96 High Flow N/C 8.00 06/02/22 07:00 107 06/02/22 07:00 91 16 135/83 (100) 99 High Flow N/C 10.00 06/02/22 06:00 97 24 133/74 (93) 95 High Flow N/C 10.00 06/02/22 05:04 36.6 06/02/22 05:00 90 15 113/68 (83) 99 High Flow N/C 10.00 06/02/22 04:00 92 15 124/70 (88) 99 High Flow N/C 10.00 06/02/22 04:00 99 Vapotherm 8.00 06/02/22 03:09 100 High Flow N/C 10.00 06/02/22 03:00 85 24 128/75 (92) 99 High Flow N/C 10.00 06/02/22 02:00 83 17 135/77 (96) 98 High Flow N/C 10.00 06/02/22 02:00 High Flow N/C 10.00 06/02/22 01:00 76 22 137/80 (99) 95 NIV Bilevel 35.00 06/02/22 01:00 80 06/02/22 00:00 94 19 124/73 (90) 97 NIV Bilevel 35.00 06/01/22 23:56 97 NIV Bilevel 35 06/01/22 23:22 36.6 06/01/22 23:00 76 19 102/64 (77) 97 NIV Bilevel 35.00 06/01/22 22:33 75 16 97 35.00 06/01/22 22:00 76 17 96/59 (71) 97 NIV Bilevel 35.00 06/01/22 21:00 80 16 121/76 (91) 95 NIV Bilevel 35.00 06/01/22 20:00 96 NIV Bilevel 35 06/01/22 20:00 95 24 125/83 (97) 96 NIV Bilevel 35.00 06/01/22 19:44 36.7 06/01/22 19:00 103 06/01/22 19:00 93 20 119/66 (83) 97 NIV Bilevel 35.00 06/01/22 18:59 93 19 96 35.00 06/01/22 18:00 96 154/72 (99) 95 NIV Bilevel 35.00 06/01/22 17:00 103 140/74 (96) 97 NIV Bilevel 35.00 06/01/22 16:00 NIV Bilevel 35 06/01/22 16:00 97 133/82 (99) 95 NIV Bilevel 35.00 06/01/22 15:42 116 26 96 35.00 06/01/22 15:34 36.2 06/01/22 15:21 NIV Bilevel 35.00 06/01/22 15:00 115 144/95 (111) 98 Nasal Cannula 10.00 06/01/22 14:00 108 128/72 (90) 99 Nasal Cannula 10.00 06/01/22 13:00 118 22 137/77 (97) 97 Nasal Cannula 10.00 06/01/22 12:45 118 18 123/25 (57) 97 Nasal Cannula 10.00 06/01/22 12:30 96 Nasal Cannula 10.00 06/01/22 12:30 118 19 126/76 (93) 95 Nasal Cannula 10.00 06/01/22 12:20 117 06/01/22 12:15 125 16 111/73 (86) 96 NIV Bilevel 35.00 I & O 06/02/22 07:00 Intake Total 4637 ml Output Total 1575 ml Balance 3062 ml Height & Weight Height: 5'8.00" Weight: 200lbs. 0.0oz. 90.894557im; 27.78 BMI Method:Stated General Appearance: No Apparent Distress, Mild Distress (requiring 10L supplemental O2, pursing lips with exhalation) Respiratory: No Accessory Muscle Use, Other (extended expiratory phase, coarse breath sounds bilaterally, mild expiratory wheezing) Cardiovascular: Tachycardia, Other (regular rhythm) Capillary Refill: Less Than 3 Seconds Gastrointestinal: non tender, soft Neurologic/Psychiatric: Alert Skin: Normal Color, Warm/Dry Results Lab Laboratory Tests 06/01/22 09:15 06/02/22 04:05 Assessment/Plan Assessment/Plan 1 NATHEN DAMIAN MD Jun 02, 2022 12:11
[2022-06-02] MEDS: LORazepam 0.5 MG (ATIVAN) TABLET PO PRN (12:26)
[2022-06-02] MEDS: BACLOFEN 10 MG (LIORESAL) TAB PO SCH ×2 (12:27→17:01)
--- NOTE | 2022-06-02 12:35 | Progress Note ---
JOSÉ MIGUEL RODRIGUEZ 06/02/22 1235: Subjective Date Seen by a Provider: Jun 02, 2022 Time Seen by a Provider: 09:30 Subjective/Events-last exam Mr. Alonso is a 61 year old male with a PMHx of COPD, HTN, HLD, GERD, hypothyroidism, and diastolic heart failure who presented to the [facility] ED on 06/01 with a chief concern of SOA. The patient is admitted to the Hospitalist service for management of acute respiratory failure with hypoxia and respiratory acidosis, likely secondary to AECOPD and R middle lobe PNA. The patient reports SOA with exertion this morning, 06/02. Patient states he has been up to stool and void multiple times throughout the night, which exacerbated SOA. The patient's ABG post BiPap therapy was improved, and the patient is receiving supplemental O2 via high flow nasal cannula. The patient is stable to transition to Med-Surg floor today. Patient denies other concerns at this time. Review of Systems General: No Chills HEENT: No Head Aches Pulmonary: Dyspnea, Cough Cardiovascular: No: Chest Pain Gastrointestinal: No: Nausea, Vomiting, Abdominal Pain, Diarrhea, Constipation Genitourinary: No Dysuria, No Retention Neurological: No: Weakness, Numbness Focused Exam Lactate Level 06/01/22 09:15: Lactic Acid Level 1.37 Objective Exam Last Set of Vital Signs Vital Signs Date Time Temp Pulse Resp B/P (MAP) Pulse Ox O2 Delivery O2 Flow Rate FiO2 06/02/22 11:00 118 24 140/93 (119) 98 High Flow N/C 10.00 06/02/22 07:53 36.5 06/01/22 23:56 35 Capillary Refill : Less Than 3 Seconds I&O Intake and Output 06/02/22 00:00 Intake Total 3105 ml Output Total 1575 ml Balance 1530 ml Intake Oral 800 ml IV Total 2305 ml Output Urine Total 1575 ml # Bowel Movements 1 Daily Weight Change No General: Alert, Oriented X3, No Acute Distress HEENT: Atraumatic Lungs: Other (bilateral diminished lungs sounds) Heart: Regular Rate Abdomen: Normal Bowel Sounds, Soft Extremities: Other (trace LE edema bilaterally) Neuro: Normal Speech Psych/Mental Status: Mental Status NL, Mood NL Results Lab Laboratory Tests 06/01/22 15:41: Glucometer 142H 06/01/22 20:15: Glucometer 194H 06/02/22 01:49: Blood Gas Puncture Site L RAD, Blood Gas Patient Temperature 36.6, Arterial Blood pH 7.44H, Arterial Blood Partial Pressure CO2 51H, Arterial Blood Partial Pressure O2 98H, Arterial Blood HCO3 34H, Arterial Blood Total CO2 35.8H, Arteri al Blood Oxygen Saturation 99, Arterial Blood Base Excess 9.6H, Jeff Test YES- POS, Blood Gas Ventilator Setting NO, Blood Gas Inspired Oxygen 35% 06/02/22 04:05: White Blood Count 27.7H, Red Blood Count 3.57L, Hemoglobin 9.9L, Hematocrit 32L, Mean Corpuscular Volume 90, Mean Corpuscular Hemoglobin 28, Mean Corpuscular Hemoglobin Concent 31L, Red Cell Distribution Width 16.1H, Platelet Count 253, Mean Platelet Volume 9.9, Sodium Level 140, Potassium Level 3.9, Chloride Level 100, Carbon Dioxide Level 30, Anion Gap 10, Blood Urea Nitrogen 12, Creatinine 0.64, Estimat Glomerular Filtration Rate 107, BUN/Creatinine Ratio 19, Glucose Level 161H, Calcium Level 9.0, Corrected Calcium 9.7, Phosphorus Level 2.7, Magnesium Level 1.7, Total Bilirubin 0.3, Aspartate Amino Transf (AST/SGOT) 20, Alanine Aminotransferase (ALT/SGPT) 17, Alkaline Phosphatase 65, Total Protein 6.8, Albumin 3.1L 06/02/22 10:55: Glucometer 141H Microbiology 06/01/22 MRSA Screen - Final, Complete MRSA not isolated Assessment/Plan Assessment/Plan Assess & Plan/Chief Complaint Acute respiratory failure with hypoxia and respiratory acidosis secondary to R middle lob PNA and AECOPD Diagnosis/Problems Diagnosis/Problems (1) Acute respiratory failure Status: Acute Assessment & Plan: Acute respiratory failure with hypoxia and respiratory acidosis likely secondary to AECOPD and R middle lobe PNA -Duoneb breathing treatments with RT -Ceftriaxone and azithromycin therapies -Steroid therapy: Solu-medrol 62.5mg IVP Q6H. If patient improves, decrease to 40mg on 06/03 with later transition to PO steroids -PT/OT services -Transition to Med-Surg floor on 06/02 Qualifiers: Qualified Codes: J96.01 - Acute respiratory failure with hypoxia; J96.02 - Acute respiratory failure with hypercapnia (2) Diastolic heart failure Status: Chronic Assessment & Plan: Close monitoring for signs of fluid overload -Increase SOA -Peripheral edema -D/C IVF on 06/02 (3) Pneumonia Status: Acute Assessment & Plan: Acute respiratory failure with hypoxia and respiratory acidosis likely secondary to AECOPD and R middle lobe PNA -Duoneb breathing treatments with RT -Ceftriaxone and azithromycin therapies -Steroid therapy with Solu-medrol. -PT/OT services Qualifiers: Qualified Codes: J18.9 - Pneumonia, unspecified organism (4) COPD with acute exacerbation Status: Acute Assessment & Plan: Acute respiratory failure with hypoxia and respiratory acidosis likely secondary to AECOPD and R middle lobe PNA -Duoneb breathing treatments with RT -Ceftriaxone and azithromycin therapies -Steroid therapy, Solu-medrol IV -PT/OT services (5) DVT prophylaxis Status: Acute Assessment & Plan: Lovenox 40mg SC qd SCDs in place Increase ambulation as tolerated (6) Sepsis Status: Acute Assessment & Plan: Patient meets SIRS criteria with fever and leukocytosis. There is no evidence of organ failure at this time. Continue close monitoring and appreciate plan per acute respiratory failure Qualifiers: Qualified Codes: A41.9 - Sepsis, unspecified organism RADHA JACKSON MD 06/02/22 1531: Supervisory-Addendum Brief Verification & Attestation Participated in pt care: history, MDM, physical Personally performed: exam, history, MDM, supervision of care Care discussed with: Medical Student Procedures: n/a Verification and Attestation of Medical Student E/M Service A medical student performed and documented this service in my presence. I reviewed and verified all information documented by the medical student and made modifications to such information, when appropriate. I personally performed the physical exam and medical decision making. Radha Jackson, Jun 02, 2022,15:30 JOSÉ MIGUEL RODRIGUEZ Jun 02, 2022 12:35 RADHA JACKSON MD Jun 02, 2022 15:31
[2022-06-02] MEDS: ENOXAPARIN 40 MG/0.4 ML (LOVENOX) SYR SC SCH (14:10)
[2022-06-02 16:02] VITALS: BP 130/68
[2022-06-02] MEDS ORDERED: BACLOFEN 10 MG (LIORESAL) TAB PO SCH (18:00)
[2022-06-02 20:01] VITALS: BP 138/70
[2022-06-02] MEDS: MONTELUKAST 10 MG (SINGULAIR) TAB PO SCH (20:33)
[2022-06-02 23:52] VITALS: BP 137/76
[2022-06-03] MEDS ORDERED: morphine ER 30 MG (MS CONTIN) TAB PO SCH (02:00)
[2022-06-03] MEDS: morphine ER 30 MG (MS CONTIN) TAB PO SCH ×2 (02:16→14:58)
[2022-06-03] MEDS: RT-ALBUTEROL SULF 2.5 MG/3 ML PRE-MIX VIAL INH SCH ×6 (03:14→22:08)
[2022-06-03] MEDS: RT-IPRATROPIUM (ATROVENT) 0.5MG/2.5ML AMP IH SCH ×6 (03:14→22:08)
[2022-06-03 03:39] VITALS: BP 136/83
[2022-06-03 05:46] LABS: HEMATOCRIT 33 % (40-54); HEMOGLOBIN 10.2 g/dL (13.3-17.7); MEAN CORPUSCULAR HEMOGLOBIN 28 pg (25-34); MEAN CORPUSCULAR HGB CONC 31 g/dL (32-36); MEAN CORPUSCULAR VOLUME 89 fL (80-99); MEAN PLATELET VOLUME 9.8 fL (9.0-12.2); PLATELET COUNT 276 10^3/uL (130-400); WHITE BLOOD COUNT 20.5 10^3/uL (4.3-11.0)
[2022-06-03 05:58] LABS: ALBUMIN 3.2 GM/DL (3.2-4.5)
[2022-06-03 05:59] LABS: POTASSIUM 3.7 MMOL/L (3.6-5.0)
[2022-06-03 06:00] LABS: CALCIUM 9.1 MG/DL (8.5-10.1)
[2022-06-03] MEDS ORDERED: POTASSIUM CL 10MEQ/50ML IVPB 50 ML IV SCH (06:00)
[2022-06-03] MEDS ORDERED: KCL 20 MEQ TAB (K-DUR) PO SCH (06:00)
[2022-06-03] MEDS ORDERED: MAGNESIUM 1 GM/100 ML IVPB 100 ML IV SCH (06:00)
[2022-06-03 06:01] LABS: TOTAL PROTEIN 6.8 GM/DL (6.4-8.2)
[2022-06-03 06:03] LABS: BILIRUBIN,TOTAL 0.2 MG/DL (0.1-1.0)
[2022-06-03 06:05] LABS: CREATININE SERUM 0.64 MG/DL (0.60-1.30)
[2022-06-03] MEDS: methylPREDNISolone 125 MG (Solu-MEDROL) VIAL IVP SCH (06:09)
[2022-06-03] MEDS: inSUlin ASPART (NovoLOG) 1 UNIT/0.01 ML (CHARGE PER UNIT) SC SCH ×4 (06:09→21:43)
--- NOTE | 2022-06-03 06:31 | Progress Note - Hospitalist ---
Subjective HPI/CC On Admission Date Seen by Provider: Jun 03, 2022 Time Seen by Provider: 11:00 Subjective/Events-last exam Patient doing a lot better Desaturation with activity is a limitation Uses 6 L at home No other concerns Will decrease steroids Review of Systems General: Fatigue, Malaise Pulmonary: Dyspnea Focused Exam Lactate Level 06/01/22 09:15: Lactic Acid Level 1.37 Objective Exam Vital Signs Vital Signs Date Time Temp Pulse Resp B/P (MAP) Pulse Ox O2 Delivery O2 Flow Rate FiO2 06/03/22 11:33 36.9 105 20 129/74 (92) 95 Nasal Cannula 6.00 06/01/22 23:56 35 Capillary Refill : Less Than 3 Seconds General Appearance: No Apparent Distress, WD/WN, Chronically ill Respiratory: Lungs Clear, Normal Breath Sounds, No Accessory Muscle Use, No Respiratory Distress, Decreased Breath Sounds Cardiovascular: Regular Rate, Rhythm Neurologic/Psychiatric: Alert, Oriented x3, No Motor/Sensory Deficits, Normal Mood/Affect Results/Procedures Lab Laboratory Tests 06/03/22 05:12 Patient resulted labs reviewed. Assessment/Plan Assessment and Plan Assess & Plan/Chief Complaint Assessment: Acute on chronic respiratory failure Pneumonia Exacerbation of COPD O2 dependent 20/11 Volume overload from diastolic heart failure Plan: Decrease steroids Ambulate MADISON BOURNE DO Jun 03, 2022 06:31
[2022-06-03] MEDS: LORazepam 0.5 MG (ATIVAN) TABLET PO PRN ×2 (06:56→21:42)
[2022-06-03] MEDS: RT--FLUTICASONE/SALMETEROL 232-14 (AIRDUO RespiCLICK) IH SCH ×2 (07:26→18:57)
[2022-06-03] MEDS: UMECLIDINIUM BROMIDE (INCRUSE ELLIPTA) 7'S IH SCH (07:26)
[2022-06-03 08:00] VITALS: BP 146/77
[2022-06-03] MEDS: LORATADINE (CLARITIN) 10 MG TAB PO SCH (09:08)
[2022-06-03] MEDS: PANTOPRAZOLE 40 MG (PROTONIX) TAB PO SCH (09:08)
[2022-06-03] MEDS: ROFLUMILAST 500 MCG TAB (DALIRESP) PO SCH (09:08)
[2022-06-03] MEDS: TAMSULOSIN 0.4 MG (FLOMAX) CAP PO SCH (09:08)
[2022-06-03] MEDS: guaiFENesin (MUCINEX) 600 MG TAB PO SCH ×3 (09:08→21:42)
[2022-06-03] MEDS: cefTRIAXone 1 GM PRE-MIX 50 ML IV SCH (09:09)
[2022-06-03] MEDS: AZITHROMYCIN INJECTION 500 MG in NS (IVPB) 250 ML IV SCH (09:09)
[2022-06-03] MEDS: aCETylcysteine 20% (MUCOMYST) 4 ML SOLN VIAL PO SCH ×2 (10:27→22:08)
[2022-06-03 11:33] VITALS: BP 129/74
[2022-06-03] MEDS: BACLOFEN 10 MG (LIORESAL) TAB PO SCH ×2 (12:02→17:09)
--- NOTE | 2022-06-03 12:07 | Physical Therapy Evaluation ---
PT Evaluation-General Medical Diagnosis Admission Date Jun 01, 2022 at 10:22 Medical Diagnosis: Respiratory Failure/ Pneumonia Onset Date: Jun 01, 2022 Therapy Diagnosis Therapy Diagnosis: Weakness/debility Height/Weight Height (Feet): 5 Height (Inches): 8.00 Weight (Pounds): 200 Weight (Ounces): 0.0 Precautions Precautions/Isolations: Fall Prevention, Standard Precautions Weight Bear Status Weight Bearing/Tolerated Weight Bearing/Tolerated Referral Physician: Saman Reason for Referral: Evaluation/Treatment Medical History Pertinent Medical History: COPD, HTN Current History ED secondary to SOA Reviewed History: Yes Social History Home: Single Level Current Living Status: Significant Other Prior Prior Level of Function SCALE: Activities may be completed with or without assistive devices. 7-Ryuyxdqsjj-qlrepdq completes the activity by him/herself with no assistance from a helper. 5-Set-up or Clean-up Assistance-helper sets up or cleans up; patient completes activity. [place] assists only prior to or following the activity. 4-Supervision or Touching Assistance-helper provides verbal cues and/or touching/steadying and/or contact guard assistance as patient completes activity. Assistance may be provided throughout the activity or intermittently. 3-Partial/Moderate Assistance-helper does LESS THAN HALF the effort. [place] lifts, holds or supports trunk or limbs, but provides less than half the effort. 2-Substantial/Maximal Assistance-helper does MORE THAN HALF the effort. [place] lifts or holds trunk or limbs and provides more than half the effort. 2-Ibqvwhypr-sayzfj does ALL the effort. Patient does none of the effort to complete the activity. Or, the assistance of 2 or more helpers is required for the patient to complete the activity. If activity was not attempted, code reason: 7-Patient Refused. 9-Not Applicable-not attempted and the patient did not perform the activity bef ore the current illness, exacerbation or injury. 10-Not Attempted due to Environmental Limitations-(lack of equipment, weather r estraints, etc.). 88-Not Attempted due to Medical Conditions or Safety Concerns. Bed Mobility: 6 Transfers (B,C,W/C): 6 Gait: 6 Stairs: 6 Pt had home health therapy and would ambulate 50ft before having to sit. Did not use assist device PT Evaluation-Current Subjective Pt supine in bed, agreeable to PT treatment. He reports that he gets SOB with minimal activity Pt/Family Goals return home Objective Patient Orientation: Person, Place, Situation Attachments: Oxygen ROM/Strength ROM Lower Extremities WFL Strength Lower Extremities grossly 3/5 with functional mobility Integumentary/Posture Integumentary refer to nursing notes Posture increased thoracic kyphosis Sensory Vision: Wears Glasses Hearing: Functional Transfers Roll Left to Right (QC): 5 Sit to Lying (QC): 5 Lying to Sitting/Side of Bed(Q: 5 Sit to Stand (QC): 4 Pt stands at EOB for approx 1 minute before needing to sit. Seated at EOB, pt O2 sate down to 85%, take approx 5 minutes to return >92% Balance Sitting Static: Good Sitting Dynamic: Good Standing Static: Poor Standing Dynamic: Poor Assessment/Needs Pt is a 61 year old male who has significantly decreased activity tolerance, functional mobility, gait, and balance due to signficant breathing issues. Pt would benefit from skilled PT to address above mentioned limitations and ensure safety upon DC from hospital Rehab Potential: Good PT Short Term Goals Short Term Goals Time Frame: Jun 17, 2022 Roll Left & Right: 6 Sit to lyin Lying to sitting on side of be: 6 Sit to stand: 6 Chair/mvk-yn-tukut transfer: 6 Toilet transfer: 6 Car transfer: 6 Walk 10 feet: 6 Walk 50 feet with two turns: 6 Walk 150 feet: 6 Walking 10ft on uneven surface: 6 1 step (curb): 6 4 steps: 6 PT Plan Problem List Problem List: Activity Tolerance, Functional Strength, Safety, Balance, Gait, Transfer, Bed Mobility, ROM Treatment/Plan Treatment Plan: Continue Plan of Care Treatment Plan: Bed Mobility, Education, Functional Activity [place], Functional Strength, Gait, Safety, Therapeutic Exercise, Transfers Treatment Duration: Jun 17, 2022 Frequency: 6 times per week Estimated Hrs Per Day: .25 hour per day Patient and/or Family Agrees t: Yes Time Time In: 1145 Time Out: 1200 DATE: Jun 03, 2022 Total Billed Treatment Time: 15 Total Billed Treatment 1 visit [facility] (15') OLEKSANDR JASMINE PT Jun 03, 2022 12:07
[2022-06-03] MEDS: ENOXAPARIN 40 MG/0.4 ML (LOVENOX) SYR SC SCH (14:58)
[2022-06-03 16:00] VITALS: BP 141/76
[2022-06-03] MEDS ORDERED: LACTULOSE SYRUP 10GM/15ML (ENULOSE) 30ML UDC PO PRN (19:45)
[2022-06-03] MEDS ORDERED: ACETAMINOPHEN 325 MG TABLET PO PRN (19:45)
[2022-06-03] MEDS ORDERED: diphenhydrAMINE 50 MG/ML INJ (BENADRYL) IVP PRN (19:45)
[2022-06-03] MEDS ORDERED: CALCIUM CARBONATE 500 MG (TUMS) TAB.CHEW PO PRN (19:45)
[2022-06-03] MEDS ORDERED: polyethylene glycoL POWDER 17 GM (MIRALAX) PACK PO PRN (19:45)
[2022-06-03] MEDS ORDERED: ANTACID SUSP 30 ML UDC (MYLANTA) PO PRN (19:45)
[2022-06-03] MEDS ORDERED: ONDANSETRON 4 MG/2 ML (SDV) Z0FRAN IV PRN (19:45)
[2022-06-03] MEDS ORDERED: ONDANSETRON 4 MG (ZOFRAN) ORAL DISSOLVE TAB PO PRN (19:45)
[2022-06-03] MEDS ORDERED: diphenhydrAMINE 25 MG TAB (BENADRYL) PO PRN (19:45)
[2022-06-03] MEDS ORDERED: BISACODYL 10 MG SUPP (DULCOLAX) PR PRN (19:45)
[2022-06-03] MEDS ORDERED: MILK OF MAGNESIA 400 MG/5 ML 30 ML UDC PO PRN (19:45)
[2022-06-03 19:46] VITALS: BP 126/65
[2022-06-03] MEDS: MONTELUKAST 10 MG (SINGULAIR) TAB PO SCH (21:42)
[2022-06-03] MEDS: SENNOSIDES 8.6 MG (SENOKOT) TAB PO SCH (21:42)
[2022-06-03] MEDS: methylPREDNISolone 40 MG/ML (Solu-MEDROL) VIAL IV SCH (21:42)
[2022-06-03] MEDS: DOCUSATE SODIUM 100 MG (COLACE) CAP PO SCH (21:42)
[2022-06-03] MEDS: MELATONIN 3 MG TABLET PO PRN (21:43)
[2022-06-03 23:44] VITALS: BP 131/67
[2022-06-04] VITALS (7 sets, daily range): BP systolic 125–156; BP diastolic 67–91
[2022-06-04] MEDS: morphine ER 30 MG (MS CONTIN) TAB PO SCH ×2 (01:52→14:32)
[2022-06-04] MEDS: RT-ALBUTEROL SULF 2.5 MG/3 ML PRE-MIX VIAL INH SCH ×5 (03:21→21:02)
[2022-06-04] MEDS: RT-IPRATROPIUM (ATROVENT) 0.5MG/2.5ML AMP IH SCH ×5 (03:21→21:02)
[2022-06-04] MEDS: inSUlin ASPART (NovoLOG) 1 UNIT/0.01 ML (CHARGE PER UNIT) SC SCH ×4 (05:57→20:55)
--- NOTE | 2022-06-04 07:35 | Progress Note - Hospitalist ---
Subjective HPI/CC On Admission Date Seen by Provider: Jun 04, 2022 Time Seen by Provider: 11:00 Subjective/Events-last exam Patient improved Desaturation is common with exertion Wears 6 L at home indicative of severe COPD Labs reviewed Review of Systems Pulmonary: Dyspnea Focused Exam Lactate Level Objective Exam Vital Signs Vital Signs Date Time Temp Pulse Resp B/P (MAP) Pulse Ox O2 Delivery O2 Flow Rate FiO2 06/04/22 11:48 36.2 94 18 153/91 (111) 97 High Flow N/C 5.00 06/01/22 23:56 35 Capillary Refill : Less Than 3 Seconds General Appearance: No Apparent Distress, WD/WN, Chronically ill Respiratory: No Accessory Muscle Use, No Respiratory Distress, Decreased Breath Sounds Cardiovascular: Regular Rate, Rhythm Neurologic/Psychiatric: Alert, Oriented x3, No Motor/Sensory Deficits, Normal Mood/Affect Results/Procedures Lab Laboratory Tests 06/04/22 08:05 Patient resulted labs reviewed. Assessment/Plan Assessment and Plan Assess & Plan/Chief Complaint Assessment: Acute on chronic respiratory failure Pneumonia Exacerbation of COPD O2 dependent 20/11 Volume overload from diastolic heart failure Plan: Decrease steroids Ambulate PT and OT MADISON BOURNE DO Jun 04, 2022 07:35
[2022-06-04 08:25] LABS: BASOPHILS % (AUTO) 0 % (0-10); EOSINOPHILS % (AUTO) 0 % (0-10); HEMATOCRIT 35 % (40-54); HEMOGLOBIN 10.9 g/dL (13.3-17.7); LYMPHOCYTES # (AUTO) 0.3 10^3/uL (1.0-4.0); LYMPHOCYTES % (AUTO) 3 % (12-44); MEAN CORPUSCULAR HEMOGLOBIN 27 pg (25-34); MEAN CORPUSCULAR HGB CONC 31 g/dL (32-36); MEAN CORPUSCULAR VOLUME 88 fL (80-99); MEAN PLATELET VOLUME 9.7 fL (9.0-12.2); MONOCYTES # (AUTO) 0.5 10^3/uL (0.0-1.0); MONOCYTES % (AUTO) 5 % (0-12); NEUTROPHILS # (AUTO) 10.2 10^3/uL (1.8-7.8); NEUTROPHILS % (AUTO) 92 % (42-75); PLATELET COUNT 315 10^3/uL (130-400); WHITE BLOOD COUNT 11.1 10^3/uL (4.3-11.0)
[2022-06-04 08:32] LABS: ALBUMIN 3.3 GM/DL (3.2-4.5); POTASSIUM 3.7 MMOL/L (3.6-5.0)
[2022-06-04 08:33] LABS: CALCIUM 9.1 MG/DL (8.5-10.1)
[2022-06-04 08:35] LABS: TOTAL PROTEIN 6.9 GM/DL (6.4-8.2)
[2022-06-04 08:36] LABS: BILIRUBIN,TOTAL 0.3 MG/DL (0.1-1.0)
[2022-06-04 08:38] LABS: CREATININE SERUM 0.65 MG/DL (0.60-1.30)
[2022-06-04] MEDS: UMECLIDINIUM BROMIDE (INCRUSE ELLIPTA) 7'S IH SCH (09:09)
[2022-06-04] MEDS: RT--FLUTICASONE/SALMETEROL 232-14 (AIRDUO RespiCLICK) IH SCH ×2 (09:09→21:03)
[2022-06-04] MEDS: TAMSULOSIN 0.4 MG (FLOMAX) CAP PO SCH (09:13)
[2022-06-04] MEDS: AZITHROMYCIN INJECTION 500 MG in NS (IVPB) 250 ML IV SCH (09:13)
[2022-06-04] MEDS: SENNOSIDES 8.6 MG (SENOKOT) TAB PO SCH ×2 (09:13→21:01)
[2022-06-04] MEDS: guaiFENesin (MUCINEX) 600 MG TAB PO SCH ×3 (09:13→21:00)
[2022-06-04] MEDS: PANTOPRAZOLE 40 MG (PROTONIX) TAB PO SCH (09:13)
[2022-06-04] MEDS: DOCUSATE SODIUM 100 MG (COLACE) CAP PO SCH ×2 (09:13→21:04)
[2022-06-04] MEDS: ROFLUMILAST 500 MCG TAB (DALIRESP) PO SCH (09:13)
[2022-06-04] MEDS: methylPREDNISolone 40 MG/ML (Solu-MEDROL) VIAL IV SCH ×2 (09:13→21:00)
[2022-06-04] MEDS: LORATADINE (CLARITIN) 10 MG TAB PO SCH (09:13)
[2022-06-04] MEDS: cefTRIAXone 1 GM PRE-MIX 50 ML IV SCH (09:14)
[2022-06-04] MEDS: aCETylcysteine 20% (MUCOMYST) 4 ML SOLN VIAL PO SCH ×2 (09:16→21:03)
[2022-06-04] MEDS: BACLOFEN 10 MG (LIORESAL) TAB PO SCH ×2 (12:29→16:28)
[2022-06-04] MEDS: ENOXAPARIN 40 MG/0.4 ML (LOVENOX) SYR SC SCH (14:33)
[2022-06-04] MEDS: LORazepam 0.5 MG (ATIVAN) TABLET PO PRN (14:38)
[2022-06-04] MEDS: MONTELUKAST 10 MG (SINGULAIR) TAB PO SCH (21:00)
[2022-06-04] MEDS: MELATONIN 3 MG TABLET PO PRN (21:01)
[2022-06-05] MEDS: morphine ER 30 MG (MS CONTIN) TAB PO SCH (01:52)
[2022-06-05] MEDS: RT-ALBUTEROL SULF 2.5 MG/3 ML PRE-MIX VIAL INH SCH ×2 (03:13→10:04)
[2022-06-05] MEDS: RT-IPRATROPIUM (ATROVENT) 0.5MG/2.5ML AMP IH SCH ×2 (03:13→10:04)
[2022-06-05 03:42] VITALS: BP 139/83
[2022-06-05] MEDS: inSUlin ASPART (NovoLOG) 1 UNIT/0.01 ML (CHARGE PER UNIT) SC SCH ×2 (05:24→12:02)
[2022-06-05 06:10] LABS: BASOPHILS % (AUTO) 0 % (0-10); EOSINOPHILS % (AUTO) 0 % (0-10); HEMATOCRIT 38 % (40-54); LYMPHOCYTES # (AUTO) 0.2 10^3/uL (1.0-4.0); LYMPHOCYTES % (AUTO) 3 % (12-44); MEAN CORPUSCULAR HEMOGLOBIN 28 pg (25-34); MEAN CORPUSCULAR HGB CONC 32 g/dL (32-36); MEAN CORPUSCULAR VOLUME 87 fL (80-99); MONOCYTES # (AUTO) 0.3 10^3/uL (0.0-1.0); MONOCYTES % (AUTO) 5 % (0-12); NEUTROPHILS # (AUTO) 6.8 10^3/uL (1.8-7.8); NEUTROPHILS % (AUTO) 92 % (42-75); PLATELET COUNT 311 10^3/uL (130-400); WHITE BLOOD COUNT 7.4 10^3/uL (4.3-11.0)
[2022-06-05 06:21] LABS: ALBUMIN 3.4 GM/DL (3.2-4.5); BILIRUBIN,TOTAL 0.3 MG/DL (0.1-1.0); CALCIUM 9.2 MG/DL (8.5-10.1); CREATININE SERUM 0.66 MG/DL (0.60-1.30); POTASSIUM 3.6 MMOL/L (3.6-5.0); TOTAL PROTEIN 7.2 GM/DL (6.4-8.2)
[2022-06-05 07:34] VITALS: BP 177/99
[2022-06-05 07:43] LABS: BAND NEUTROPHILS 4 %; LYMPHOCYTES % (MANUAL) 4 %; MONOCYTES % (MANUAL) 9 %; NEUTROPHILS % (MANUAL) 83 %
[2022-06-05 07:44] LABS: ANISOCYTOSIS SLIGHT
[2022-06-05] MEDS: ROFLUMILAST 500 MCG TAB (DALIRESP) PO SCH (08:42)
[2022-06-05] MEDS: DOCUSATE SODIUM 100 MG (COLACE) CAP PO SCH (08:42)
[2022-06-05] MEDS: SENNOSIDES 8.6 MG (SENOKOT) TAB PO SCH (08:43)
[2022-06-05] MEDS: TAMSULOSIN 0.4 MG (FLOMAX) CAP PO SCH (08:43)
[2022-06-05] MEDS: LORATADINE (CLARITIN) 10 MG TAB PO SCH (08:43)
[2022-06-05] MEDS: methylPREDNISolone 40 MG/ML (Solu-MEDROL) VIAL IV SCH (08:43)
[2022-06-05] MEDS: guaiFENesin (MUCINEX) 600 MG TAB PO SCH ×2 (08:43→12:03)
[2022-06-05] MEDS: PANTOPRAZOLE 40 MG (PROTONIX) TAB PO SCH (08:43)
[2022-06-05] MEDS: LORazepam 0.5 MG (ATIVAN) TABLET PO PRN (08:47)
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
[2022-06-05] MEDS ORDERED: AZITHROMYCIN 250 MG TAB (ZITHROMAX) PO SCH (09:00)
--- NOTE | 2022-06-05 09:29 | Physical Therapy Daily Note ---
PT Daily Note-Current Subjective Patient requires encouragement to participate with PT. Pain Section J - Health Conditions 1. Rarely or not at all 2. Occasionally 3. Frequently 4. Almost constantly 8. Unable to answer Pain Effect on Sleep: 1 Pain Interference with Therapy: 1 Pain Interference w/Day-to-Day: 1 Mental Status Patient Orientation: Normal For Age Attachments: Oxygen Transfers SCALE: Activities may be completed with or without assistive devices. 4-Axudpsfakk-pvihukd completes the activity by him/herself with no assistance from a helper. 5-Set-up or Clean-up Assistance-helper sets up or cleans up; patient completes activity. [place] assists only prior to or following the activity. 4-Supervision or Touching Assistance-helper provides verbal cues and/or touching/steadying and/or contact guard assistance as patient completes activity. Assistance may be provided throughout the activity or intermittently. 3-Partial/Moderate Assistance-helper does LESS THAN HALF the effort. [place] lifts, holds or supports trunk or limbs, but provides less than half the effort. 2-Substantial/Maximal Assistance-helper does MORE THAN HALF the effort. [place] lifts or holds trunk or limbs and provides more than half the effort. 9-Prlrmnlfz-iilubg does ALL the effort. Patient does none of the effort to complete the activity. Or, the assistance of 2 or more helpers is required for the patient to complete the activity. If activity was not attempted, code reason: 7-Patient Refused. 9-Not Applicable-not attempted and the patient did not perform the activity bef ore the current illness, exacerbation or injury. 10-Not Attempted due to Environmental Limitations-(lack of equipment, weather r estraints, etc.). 88-Not Attempted due to Medical Conditions or Safety Concerns. Lying to Sitting/Side of Bed(Q: 6 Sit to Stand (QC): 6 Chair/[place] Xfer(QC): 6 Weight Bearing Weight Bearing/Tolerated Weight Bearing/Tolerated Gait Training Distance: 15' Walk 10 feet (QC): 6 Gait Assistive Device: None Assessment Patient appears to self limit with SAO2 remaining 95% with activity. Patient states, "I can do all of this on my own and I don't need you." PT attempted to educated patient on importance of increasing activity to improve pulmonary function, however, patient continued to adamantly declined continued PT. PT to dismiss patient from services at this time. PT Short Term Goals Short Term Goals Time Frame: Jun 17, 2022 Roll Left & Right: 6 Sit to lyin Lying to sitting on side of be: 6 Sit to stand: 6 Chair/aif-dg-xcedq transfer: 6 Toilet transfer: 6 Car transfer: 6 Walk 10 feet: 6 Walk 50 feet with two turns: 6 Walk 150 feet: 6 Walking 10ft on uneven surface: 6 1 step (curb): 6 4 steps: 6 PT Plan Treatment/Plan Treatment Plan: Discontinue PT Treatment Plan: Bed Mobility, Education, Functional Activity [place], Functional Strength, Gait, Safety, Therapeutic Exercise, Transfers Treatment Duration: Jun 17, 2022 Frequency: 6 times per week Estimated Hrs Per Day: .25 hour per day Patient and/or Family Agrees t: Yes Time Time In: 745 Time Out: 755 DATE: Jun 05, 2022 Total Billed Treatment Time: 10 Total Billed Treatment 1 visit FA 10 min GARFIELD SAUNDERS PT Jun 05, 2022 09:29
[2022-06-05] MEDS: UMECLIDINIUM BROMIDE (INCRUSE ELLIPTA) 7'S IH SCH (10:03)
[2022-06-05] MEDS: RT--FLUTICASONE/SALMETEROL 232-14 (AIRDUO RespiCLICK) IH SCH (10:03)
[2022-06-05] MEDS: aCETylcysteine 20% (MUCOMYST) 4 ML SOLN VIAL PO SCH (10:04)
[2022-06-05] MEDS ORDERED: PRED10TA22 PO (10:28)
[2022-06-05] MEDS ORDERED: DILT30TA PO (10:28)
[2022-06-05] MEDS ORDERED: PROM25TA14 PO (10:28)
--- NOTE | 2022-06-05 10:29 | Discharge Summary ---
Discharge Summary Hospital Course Was the Problem List Reviewed?: Yes Problems/Dx: (1) Acute respiratory failure Status: Acute Qualifiers: Qualified Codes: J96.01 - Acute respiratory failure with hypoxia; J96.02 - Acute respiratory failure with hypercapnia (2) Diastolic heart failure Status: Chronic (3) Pneumonia Status: Acute Qualifiers: Qualified Codes: J18.9 - Pneumonia, unspecified organism (4) COPD with acute exacerbation Status: Acute (5) DVT prophylaxis Status: Acute (6) Sepsis Status: Acute Qualifiers: Qualified Codes: A41.9 - Sepsis, unspecified organism Hospital Course Date of Admission: Jun 01, 2022 at 10:22 Admission Diagnosis : Family Physician/Provider: Sammy Andersen MD Date of Discharge: 06/05/22 Discharge Diagnosis: [ ] Hospital Course: Estevan Alonso, 61 yo M, with a past medical history of COPD, hypertension, hyperlipidemia, gastroesophageal reflux disease, hypothyroidism, and diastolic heart failure, was admitted for acute respiratory failure with hypoxia and respiratory acidosis, likely secondary to AECOPD and right middle lobe PNA. He arrived to the ED on 06/01 with a chief complaint of shortness of air. Per ED provider note: "61-year-old male brought in by EMS with shortness of breath. Patient's had s hortness of breath for the last couple days where he reports has been sick. Patient has known sick contacts in the house. EMS reports patient is normally on 2 L was around 79 to 81%. He had a very rapid heart rate he received a DuoNeb in route and his oxygen improved 100%. He did still remain in moderate respiratory distress. Patient denies any reports of fever. Patient is pursed lip breathing and has difficulty communicating much further HPI. Patient was in significant distress upon arrival. Patient was placed shortly upon BiPAP and had significant improvement. Patient's x-ray was reviewed and shows a pneumonia likely on the right side. Patient's labs were reviewed and showed elevated white count. Patient is negative for COVID influenza. Patient heart rate was extremely tacky upon arrival. An initial dose of adenosine slowed down to where it appeared to be more of a atrial fib. 20 Cardizem was given. Patient had some mild decrease in heart rate and it appeared to become more sinus tachycardia. Patient was provided with IV fluids and BiPAP. His heart rate was slowly improving. Patient was pursed lip breathing that resolved with the BiPAP." Patient did well in the ICU. He was started on Duo-neb breathing treatment with RT. Received Ceftriaxone, Azithromycin, and Steroid therapy with Solu-Medrol. Patient worked with PT/OT to increase strength. On 06/02, he was transitioned to the Med-Surg floor. According to recent PT note on 06/05, "Patient appears to self limit with SAO2 remaining 95% with activity. Patient states, "I can do all of this on my own and I don't need you." PT attempted to educated patient on importance of increasing activity to improve pulmonary function, however, patient continued to adamantly declined continued PT. PT to dismiss patient from services at this time." Today. Mr. Alonso is laying in bed comfortably and in no acute distress. He is wearing 5L O2 via nasal cannula and states he is having no difficulty breathing. Reports he wears 6L at home. Complains of chronic pain today. He is ambulatory from the bed to commode to recliner. Usually with someone on standby. States he has no trouble toileting or eating. Pt notes some chest tightness, SOB, and a slight cough. Denies nausea or vomiting. He feels well enough to go home today. PT/OT evaluations note 6s throughout, deeming patient has ability to complete activities independently by himself. INOCENCIA MOY Labs and Pending Lab Test: Laboratory Tests 06/04/22 15:07: Glucometer 174H 06/05/22 05:18: Glucometer 171H 06/05/22 05:26: White Blood Count 7.4, Red Blood Count 4.32, Hemoglobin 12.0L, Hematocrit 38L, Mean Corpuscular Volume 87, Mean Corpuscular Hemoglobin 28, Mean Corpuscular Hemoglobin Concent 32, Red Cell Distribution Width 15.8H, Platelet Count 311, Mean Platelet Volume 10.0, Immature Granulocyte % (Auto) 1, Neutrophils (%) (Auto) 92H, Lymphocytes (%) (Auto) 3L, Monocytes (%) (Auto) 5, Eosinophils (%) (Auto) 0, Basophils (%) (Auto) 0, Neutrophils # (Auto) 6.8, Lymphocytes # (Auto) 0.2L, Monocytes # (Auto) 0.3, Eosinophils # (Auto) 0.0, Basophils # (Auto) 0.0, Immature Granulocyte # (Auto) 0.0, Neutrophils % (Manual) 83, Lymphocytes % (Manual) 4, Monocytes % (Manual) 9, Band Neutrophils 4, Anisocytosis SLIGHT, Sodium Level 140, Potassium Level 3.6, Chloride Level 94L, Carbon Dioxide Level 33H, Anion Gap 13, Blood Urea Nitrogen 18, Creatinine 0.66, Estimat Glomerular Filtration Rate 106, BUN/Creatinine Ratio 27, Glucose Level 162H, Calcium Level 9.2, Corrected Calcium 9.7, Total Bilirubin 0.3, Aspartate Amino Transf (AST/SGOT) 18, Alanine Aminotransferase (ALT/SGPT) 14, Alkaline Phosphatase 62, Total Protein 7.2, Albumin 3.4 Microbiology 06/02/22 Gram Stain - Final, Resulted 06/02/22 Sputum Culture - Preliminary, Resulted Serratia marcescens Usual upper respiratory theo 06/01/22 Blood Culture - Preliminary, Resulted No growth Home Meds Active Prednisone 10 Mg Tab.ds.pk 10 Mg PO DAILY Take 6 tabs(60mg)daily,decrease by 1 tab(10MG)daily. Diltiazem HCl 30 Mg Tablet 30 Mg PO TID Promethazine Tablet (Promethazine HCl) 25 Mg Tablet 25 Mg PO 1200,1800 PRN 7 Days Reported Multivitamins with Minerals (Multivitamin with Minerals) 1 Each Tablet 1 Each PO 1200 Glucosamine & Chondroitin Cap (Glucosa Kurtz 2Kcl/Chondroitin Kurtz) 500 Mg-400 Mg Capsule 1 Each PO 1200 Nac (Acetylcysteine) 500 Mg Capsule 500 Mg PO BID Turmeric (Turmeric Root Extract) 500 Mg Tablet 1,000 Mg PO DAILY Flomax (Tamsulosin HCl) 0.4 Mg Cap 0.4 Mg PO DAILY Daliresp (Roflumilast) 500 Mcg Tablet 500 Mcg PO DAILY Breztri Aerosphere Inhaler (Budesonide/Glycopyr/Formoterol) 160 Mcg-9 Mcg-4.8 Mcg/Actuation Hfa.aer.ad 2 Ea PO BID Baclofen 10 Mg Tablet 10 Mg PO DAILY PRN Hydrocodone-Acetamin 10-325 mg (Hydrocodone/Acetaminophen) 10 Mg-325 Mg Tablet 1-2 Ea PO TID PRN Ativan (Lorazepam) 0.5 Mg Tablet 0.5 Mg PO BID PRN Albuterol Sulfate 2.5 Mg/3 Ml (0.083 %) Vial.neb 2.5 Mg NEB Q6H PRN Ventolin Hfa (Albuterol Sulfate) 18 Gm Hfa.aer.ad 2 Puff INH Q6H PRN Montelukast Sodium 10 Mg Tablet 10 Mg PO HS Zyrtec (Cetirizine HCl) 10 Mg Tablet 10 Mg PO DAILY Calcium 600 + Vit D 200 Tablet (Calcium Carbonate/Vitamin D3) 600 Mg Calcium-5 Mcg (200 Unit) Tablet 2 Ea PO 1200 Colace (Docusate Sodium) 100 Mg Capsule 100 Mg PO BID PRN Excedrin Extra Strength Caplet (Aspirin/Acetaminophen/Caffeine) 250 Mg-250 Mg-65 Mg Tablet 2 Tab PO DAILY Citalopram HBr (Citalopram Hydrobromide) 20 Mg Tablet 20 Mg PO DAILY Omeprazole 20 Mg Capsule.dr 20 Mg PO DAILY Morphine Sulfate ER (Morphine Sulfate) 60 Mg Tablet.er 60 Mg PO 0200,1400 Mucus Relief (Guaifenesin) 400 Mg Tablet 800 Mg PO TID TAKES 2 (400MG) TABS Baclofen 10 Mg Tablet 10 Mg PO 1200,1800 Assessment/Pt Instructions PCP 1 week Discharge Planning: <30 minutes discharge planning Discharge Instructions Discharge Diet: No Restrictions Discharge Physical Examination Vital Signs Vital Signs Date Time Temp Pulse Resp B/P (MAP) Pulse Ox O2 Delivery O2 Flow Rate FiO2 06/05/22 07:34 36.2 83 18 177/99 (125) 97 High Flow N/C 5.00 06/01/22 23:56 35 General Appearance: No Apparent Distress, WD/WN, Chronically ill Respiratory: Lungs Clear, Normal Breath Sounds Cardiovascular: Regular Rate, Rhythm Neurologic/Psychiatric: Alert, Oriented x3, No Motor/Sensory Deficits, Normal Mood/Affect Allergies: Coded Allergies: fentanyl (Verified Allergy, Unknown, SOA, 06/10/16) carisoprodol (Verified Adverse Reaction, Unknown, MEAN, 06/10/16) codeine (Verified Adverse Reaction, Unknown, MEAN, 06/10/16) tramadol (Verified Adverse Reaction, Unknown, FORGETFUL, 06/10/16) Discharge Summary Date of Admission Jun 01, 2022 at 10:22 Date of Discharge Discharge Date: Jun 05, 2022 Discharge Diagnosis Assessment: Acute on chronic respiratory failure Pneumonia Exacerbation of COPD O2 dependent 20/11 Volume overload from diastolic heart failure Plan: Decrease steroids Ambulate PT and OT (1) Acute respiratory failure Status: Acute Assessment & Plan: Acute respiratory failure with hypoxia and respiratory acidosis likely secondary to AECOPD and R middle lobe PNA -Duoneb breathing treatments with RT -Ceftriaxone and azithromycin therapies -Steroid therapy: Solu-medrol 62.5mg IVP Q6H. If patient improves, decrease to 40mg on 06/03 with later transition to PO steroids -PT/OT services -Transition to Med-Surg floor on 06/02 Qualifiers: Qualified Codes: J96.01 - Acute respiratory failure with hypoxia; J96.02 - Acute respiratory failure with hypercapnia (2) Diastolic heart failure Status: Chronic Assessment & Plan: Close monitoring for signs of fluid overload -Increase SOA -Peripheral edema -D/C IVF on 06/02 (3) Pneumonia Status: Acute Assessment & Plan: Acute respiratory failure with hypoxia and respiratory acidosis likely secondary to AECOPD and R middle lobe PNA -Duoneb breathing treatments with RT -Ceftriaxone and azithromycin therapies -Steroid therapy with Solu-medrol. -PT/OT services Qualifiers: Qualified Codes: J18.9 - Pneumonia, unspecified organism (4) COPD with acute exacerbation Status: Acute Assessment & Plan: Acute respiratory failure with hypoxia and respiratory acidosis likely secondary to AECOPD and R middle lobe PNA -Duoneb breathing treatments with RT -Ceftriaxone and azithromycin therapies -Steroid therapy, Solu-medrol IV -PT/OT services (5) DVT prophylaxis Status: Acute Assessment & Plan: Lovenox 40mg SC qd SCDs in place Increase ambulation as tolerated (6) Sepsis Status: Acute Assessment & Plan: Patient meets SIRS criteria with fever and leukocytosis. There is no evidence of organ failure at this time. Continue close monitoring and appreciate plan per acute respiratory failure Qualifiers: Qualified Codes: A41.9 - Sepsis, unspecified organism MADISON BOURNE DO Jun 05, 2022 10:29
--- NOTE | 2022-06-05 10:29 | D/C HH Face to Face Order ---
D/C HH Face to Face Orders Reconcile Patient Problems Problems Reviewed?: Yes Instructions for Patient HH Patient Instructions/FollowUp: PCP 1 week Physician to follow Patient: [facility] Discharge Diet for Home: No Restrictions Patient Problems: COPD O2 dependence Patient Data-Allergies,Ht & Wt Patient Allergies: Coded Allergies: fentanyl (Verified Allergy, Unknown, SOA, 06/10/16) carisoprodol (Verified Adverse Reaction, Unknown, MEAN, 06/10/16) codeine (Verified Adverse Reaction, Unknown, MEAN, 06/10/16) tramadol (Verified Adverse Reaction, Unknown, FORGETFUL, 06/10/16) Height (Feet): 5 Height (Inches): 8.00 Weight (Pounds): 200 Weight (Ounces): 0.0 Home Health Need/Face to Face Date of Face to Face: Jun 05, 2022 Clinical Findings: Generalized weakness and fatigue, Instability, Muscle weakness, Shortness of breath I have seen Pt [id number]: Yes Discharged To: Home Diagnosis/Conditions: Debility Patient is Homebound due to: Muscle weakness, Shortness of breath/distress Homebound Status Due to the above stated illness, injury or surgical procedure (medical condition or diagnosis) and associated clinical findings, the patient is homebound because of his/her inability to leave home except with aid of a supportive device and/or person AND leaving the home requires a considerable and taxing effort or is medically contraindicated. Pt req the following assistanc: [facility] Nursing Orders Home Health Services Order: Nursing Services, Helminthologist-Evaluate & Treat, Physical Therapy-Evaluate & Treat Home Health Infusion Therapy Line Start Date: Jun 01, 2022 Certify Stmt I certify that this patient is under my care and that I, a nurse practitioner or a physician; a quality assurance assistant working with me, had a face to face encounter that - meets the physician face to face encounter requirements with this patient as dated. MADISON BOURNE DO Jun 05, 2022 10:29
[2022-06-05] MEDS: cefTRIAXone 1 GM PRE-MIX 50 ML IV SCH (11:03)
[2022-06-05 11:26] VITALS: BP 159/96
[2022-06-05] MEDS: BACLOFEN 10 MG (LIORESAL) TAB PO SCH (12:02)
--- NOTE | 2022-06-05 12:28 | Progress Note ---
INOCENCIA MOY 06/05/22 1228: Progress Note Estevan Alonso, 61 yo M, with a past medical history of COPD, hypertension, hyperlipidemia, gastroesophageal reflux disease, hypothyroidism, and diastolic heart failure, was admitted for acute respiratory failure with hypoxia and respiratory acidosis, likely secondary to AECOPD and right middle lobe PNA. He arrived to the ED on 06/01 with a chief complaint of shortness of air. Per ED provider note: "61-year-old male brought in by EMS with shortness of breath. Patient's had shortness of breath for the last couple days where he reports has been sick. Patient has known sick contacts in the house. EMS reports patient is normally on 2 L was around 79 to 81%. He had a very rapid heart rate he received a DuoNeb in route and his oxygen improved 100%. He did still remain in moderate respiratory distress. Patient denies any reports of fever. Patient is pursed lip breathing and has difficulty communicating much further HPI. Patient was in significant distress upon arrival. Patient was placed shortly upon BiPAP and had significant improvement. Patient's x-ray was reviewed and shows a pneumonia likely on the right side. Patient's labs were reviewed and showed elevated white count. Patient is negative for COVID influenza. Patient heart rate was extremely tacky upon arrival. An initial dose of adenosine slowed down to where it appeared to be more of a atrial fib. 20 Cardizem was given. Patient had some mild decrease in heart rate and it appeared to become more sinus tachycardia. Patient was provided with IV fluids and BiPAP. His heart rate was slowly improving. Patient was pursed lip breathing that resolved with the BiPAP." Patient did well in the ICU. He was started on Duo-neb breathing treatment with RT. Received Ceftriaxone, Azithromycin, and Steroid therapy with Solu-Medrol. Patient worked with PT/OT to increase strength. On 06/02, he was transitioned to the Med-Surg floor. According to recent PT note on 06/05, "Patient appears to self limit with SAO2 remaining 95% with activity. Patient states, "I can do all of this on my own and I don't need you." PT attempted to educated patient on importance of increasing activity to improve pulmonary function, however, patient continued to adamantly declined continued PT. PT to dismiss patient from services at this time." Today. Mr. Alonso is laying in bed comfortably and in no acute distress. He is wearing 5L O2 via nasal cannula and states he is having no difficulty breathing. Reports he wears 6L at home. Complains of chronic pain today. He is ambulatory from the bed to commode to recliner. Usually with someone on standby. States he has no trouble toileting or eating. Pt notes some chest tightness, SOB, and a slight cough. Denies nausea or vomiting. He feels well enough to go home today. PT/OT evaluations note 6s throughout, deeming patient has ability to complete activities independently by himself. JOSEFA DAVISON DO 06/06/22 0459: Supervisory-Addendum Brief Verification & Attestation Participated in pt care: history, MDM, physical Personally performed: exam, history, MDM, supervision of care Care discussed with: Medical Student Procedures: n/a Results interpretation: Verified all documentation Verification and Attestation of Medical Student E/M Service A medical student performed and documented this service in my presence. I rev iewed and verified all information documented by the medical student and made modifications to such information, when appropriate. I personally performed the physical exam and medical decision making. Josefa Davison, Jun 06, 2022,04:59 INOCENCIA MOY Jun 05, 2022 12:28 JOSEFA DAVISON DO Jun 06, 2022 04:59
--- NOTE | 2022-06-06 11:47 | Physician Query Clarification ---
PQ-Further Specificity Admission/Discharge Admission Date: Jun 01, 2022 at 10:22 Discharge Date: Jun 05, 2022 at 13:26 Dr. Davison, The medical record reflects the following clinical scenario: History/Risk Factors: Pneumonia, acute on chronic hypoxic/hypercapnic respiratory failure, COPD AE Clinical Findings: T 38.3, P 161, R 52, BP 201/96, WBC 31.5, lactic acid 1.37 Treatment: IV Ceftriaxone, IV Azithromycin Question: Can you further specify if patient had sepsis or just SIRS per the clinical indicators above? Please document a response in the Progress Notes or Discharge Summary. 1. Sepsis present on admission 2. SIRS only no sepsis 3. Other, with explanation of the clinical findings. 4. Clinically undetermined, no explanation for the clinical findings. PHYSICIAN RESPONSE Can you specify per above: 1 In responding to this query, please exercise your independent professional judgment. The purpose of this communication is to more accurately reflect the complexity of your patients condition. The fact that a question is asked does not imply that any particular answer is desired or expected. Thank you for your timely response to this clarification. Requestors name: Susana THIS PHYSICIAN QUERY FORM IS A PERMANENT PART OF THE MEDICAL RECORD SUSANA GARCIA Jun 06, 2022 11:47 MADISON DAVISON DO Jun 06, 2022 21:03
== END 2022-06-05 13:26 | disposition home health service (06) | DRG 871 ==
LOC: EDUNIT# 09:02 → ER 09:03 → ICU 10:22 → 4TH 06-02 14:58
PROVIDERS: ADMIT Family Medicine; ATTEND Internal Medicine
PROC: 5A09357 Assistance with Respiratory Ventilation, Less than 24 Consecutive Hours, Continuous Positive Airway Pressure (ICD-10-PCS; principal; 2022-06-01)
PROC: 5A0945A Assistance with Respiratory Ventilation, 24-96 Consecutive Hours, High Flow/Velocity Cannula (ICD-10-PCS; 2022-06-03)
DX: A41.9 Sepsis, unspecified organism (principal); J18.9 Pneumonia, unspecified organism; J96.21 Acute and chronic respiratory failure with hypoxia; J96.22 Acute and chronic respiratory failure with hypercapnia; J44.0 Chronic obstructive pulmonary disease with (acute) lower respiratory infection; J44.1 Chronic obstructive pulmonary disease with (acute) exacerbation; E87.29 Other acidosis; I50.32 Chronic diastolic (congestive) heart failure; I11.0 Hypertensive heart disease with heart failure; E78.00 Pure hypercholesterolemia, unspecified; Z20.822 Contact with and (suspected) exposure to COVID-19; K21.9 Gastro-esophageal reflux disease without esophagitis; E03.9 Hypothyroidism, unspecified; R00.0 Tachycardia, unspecified; F41.9 Anxiety disorder, unspecified; Z99.81 Dependence on supplemental oxygen; Z79.52 Long term (current) use of systemic steroids; Z79.899 Other long term (current) drug therapy; Z88.5 Allergy status to narcotic agent; Z88.8 Allergy status to other drugs, medicaments and biological substances; Z87.891 Personal history of nicotine dependence
CPT/HCPCS: 36415; 71045; 80053; 82805; 82947; 83605; 83735; 84100; 85007; 85025; 85027; 86141; 87040; 87070; 87077; 87081; 87186; 87205; 87636; 93005; 93041; 94640; 94760

== ENCOUNTER 2022-06-05 13:55 | Inpatient (IN) | payer MEDICARE ==
[~2022-06-05] VITALS: Ht 172.7 cm; Wt 97.3 kg
[~2022-06-05 13:55] MED LIST changes: +DILT30TA PO; +MULT-166 PO
[2022-06-05] MEDS ORDERED: RT-ALBUTEROL/IPRATROPIUM 3 ML (DUONEB) VIAL INH ONE (14:15)
[2022-06-05] MEDS ORDERED: methylPREDNISolone 125 MG (Solu-MEDROL) VIAL IV STA (14:15)
[2022-06-05 14:30] VITALS: BP 147/96
[2022-06-05 14:33] LABS: BASOPHILS % (AUTO) 0 % (0-10); EOSINOPHILS % (AUTO) 0 % (0-10); HEMATOCRIT 43 % (40-54); HEMOGLOBIN 13.5 g/dL (13.3-17.7); LYMPHOCYTES # (AUTO) 0.5 10^3/uL (1.0-4.0); LYMPHOCYTES % (AUTO) 2 % (12-44); MEAN CORPUSCULAR HEMOGLOBIN 27 pg (25-34); MEAN CORPUSCULAR HGB CONC 31 g/dL (32-36); MEAN CORPUSCULAR VOLUME 88 fL (80-99); MEAN PLATELET VOLUME 9.7 fL (9.0-12.2); MONOCYTES # (AUTO) 0.9 10^3/uL (0.0-1.0); MONOCYTES % (AUTO) 5 % (0-12); NEUTROPHILS # (AUTO) 17.3 10^3/uL (1.8-7.8); NEUTROPHILS % (AUTO) 92 % (42-75); PLATELET COUNT 416 10^3/uL (130-400); WHITE BLOOD COUNT 18.7 10^3/uL (4.3-11.0)
[2022-06-05 14:43] LABS: CHLORIDE 91 MMOL/L (98-107); SODIUM 138 MMOL/L (135-145)
[2022-06-05 14:44] LABS: CALCIUM 9.6 MG/DL (8.5-10.1)
[2022-06-05 14:45] LABS: GLUCOSE 219 MG/DL (70-105)
[2022-06-05 14:46] LABS: TOTAL PROTEIN 8.1 GM/DL (6.4-8.2)
[2022-06-05 14:47] LABS: BILIRUBIN,TOTAL 0.4 MG/DL (0.1-1.0); CARBON DIOXIDE 33 MMOL/L (21-32)
[2022-06-05 14:49] LABS: ALKALINE PHOSPHATASE 73 U/L (40-136); CREATININE SERUM 0.75 MG/DL (0.60-1.30); GFR ESTIMATED 102
[2022-06-05 14:50] LABS: BUN/CREATININE RATIO 25
[2022-06-05 14:52] LABS: ALANINE AMINOTRANSFERASE 23 U/L (0-55)
--- NOTE | 2022-06-05 15:14 | Diagnostic Imaging Report ---
EXAMINATION: Chest 1 view HISTORY: Shortness of breath. COMPARISON: 06/01/2022. FINDINGS: Hazy opacities are seen in the left lung base. Chronic fibrotic changes are seen in both lung bases. The lungs are hyperinflated. The heart size is normal. There is calcified aortic atherosclerotic plaque. Radiopaque material is seen in the left chest, similar to the prior exam. IMPRESSION: 1. Hazy opacities in the left lung base, which may represent atelectasis or infection. 2. Hyperinflated lung volumes with chronic fibrotic changes. Dictated by: Dictated on workstation # [id number]
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
[2022-06-05] MEDS ORDERED: HYDROmorphone 2 MG/ML VIAL (DILAUDID) IV PRN (16:45)
[2022-06-05] MEDS ORDERED: ANTACID SUSP 30 ML UDC (MYLANTA) PO PRN (16:45)
[2022-06-05] MEDS ORDERED: LACTULOSE SYRUP 10GM/15ML (ENULOSE) 30ML UDC PO PRN (16:45)
[2022-06-05] MEDS ORDERED: BISACODYL 10 MG SUPP (DULCOLAX) PR PRN (16:45)
[2022-06-05] MEDS ORDERED: ONDANSETRON 4 MG/2 ML (SDV) Z0FRAN IV PRN (16:45)
[2022-06-05] MEDS ORDERED: diphenhydrAMINE 25 MG TAB (BENADRYL) PO PRN (16:45)
[2022-06-05] MEDS ORDERED: DexMEDEtomidine 250 ML DRIP 250 ML IV SCH ×2 (16:45)
[2022-06-05] MEDS ORDERED: CALCIUM CARBONATE 500 MG (TUMS) TAB.CHEW PO PRN (16:45)
[2022-06-05] MEDS ORDERED: diphenhydrAMINE 50 MG/ML INJ (BENADRYL) IVP PRN (16:45)
[2022-06-05] MEDS ORDERED: dilTIAZem DRIP PRE-MIX 125 ML IV SCH (16:45)
[2022-06-05] MEDS ORDERED: LIDOCAINE UROJET 2% GEL 10 ML PKG TOP ONE (16:45)
[2022-06-05] MEDS ORDERED: polyethylene glycoL POWDER 17 GM (MIRALAX) PACK PO PRN (16:45)
[2022-06-05] MEDS ORDERED: MILK OF MAGNESIA 400 MG/5 ML 30 ML UDC PO PRN (16:45)
[2022-06-05] MEDS ORDERED: NS IV 500 ML 500 ML IV PRN (16:45)
[2022-06-05] MEDS ORDERED: ONDANSETRON 4 MG (ZOFRAN) ORAL DISSOLVE TAB PO PRN (16:45)
[2022-06-05] MEDS ORDERED: ENOXAPARIN 100 MG/1 ML (LOVENOX) SYR SC SCH (16:45)
[2022-06-05] MEDS ORDERED: MELATONIN 3 MG TABLET PO PRN (16:45)
--- NOTE | 2022-06-05 17:08 | Tele-ICU Consult ---
History of Present Illness History of Present Illness Date Seen by Provider: Jun 05, 2022 Time Seen by Provider: 17:03 Date of Admission 06/05/2022 History of Present Illness (Tele-ICU Physician , consultation) Available chart/ vitals / labs / Images reviewed H&P is from ER notes Patient's information available about PMH, allergy reviewed in EMR. ROS as per chart and RN report Video assessment done using teleICU camera, rest of exam as per RN Discussed with RN. He is a 61-year-old male with past medical history of advanced COPD, hypertension, GERD hypothyroidism and suspected diastolic congestive heart failure admitted to this hospital repeatedly at least 3 times in the last 2 months with shortness of breath and found to have acute and chronic respiratory failure requiring BiPAP ventilation. Today log roper he was in the fourth floor medical meza where he was feeling better with supplemental oxygen and he was discharged home. He is currently his took him home on her own car and on the way he became very short of breath and heart rate went up and oxygen saturation dropped hence they came back to the emergency room where he is found to have heart rate up to 180/min, and oxygen desaturation hence he is placed [place] BiPAP ventilator. Cardiology consultation is requested and they have started him on Cardizem drip. He has a bilateral diffuse wheezing. Earlier today his white count is normal but this time his white count went up to 18. I have evaluated him once he is admitted to the ICU discussed with the WIRE TWISTING MACHINE OPERATOR. Impression 1. Acute and chronic respiratory failure requiring BiPAP ventilation 2. Severe end-stage chronic obstructive pulmonary disease 3. Atrial fibrillation versus paroxysmal atrial tachycardia 4. History of diastolic congestive heart failure 5. Questionable pneumonia Recommendations 1. Continue oxygenation with BiPAP ventilator 2. We will give IV Solu-Medrol and bronchodilators 3. Heart rate management per cardiology 4. DVT prophylaxis and ulcer prophylaxis. 5. Oral antibiotic Coordination of care with bedside consultants and primary care physician. Allergies and Home Medications Allergies Coded Allergies: fentanyl (Verified Allergy, Unknown, SOA, 06/10/16) carisoprodol (Verified Adverse Reaction, Unknown, MEAN, 06/10/16) codeine (Verified Adverse Reaction, Unknown, MEAN, 06/10/16) tramadol (Verified Adverse Reaction, Unknown, FORGETFUL, 06/10/16) Home Medications Acetylcysteine 500 Mg Capsule, 500 MG PO BID, (Reported) Albuterol Sulfate 18 Gm Hfa.aer.ad, 2 PUFF INH Q6H PRN for SHORTNESS OF BREATH, (Reported) Albuterol Sulfate 2.5 Mg/3 Ml (0.083 %) Vial.neb, 2.5 MG NEB Q6H PRN for SHORTNESS OF BREATH, (Reported) Aspirin/Acetaminophen/Caffeine 250 Mg-250 Mg-65 Mg Tablet, 2 TAB PO DAILY, (Reported) Baclofen 10 Mg Tablet, 10 MG PO 1200,1800, (Reported) Baclofen 10 Mg Tablet, 10 MG PO DAILY PRN for MUSCLE CRAMPS, (Reported) Budesonide/Glycopyr/Formoterol 160 Mcg-9 Mcg-4.8 Mcg/Actuation Hfa.aer.ad, 2 EA PO BID, (Reported) Calcium Carbonate/Vitamin D3 600 Mg Calcium-5 Mcg (200 Unit) Tablet, 2 EA PO 1200, (Reported) Cetirizine HCl 10 Mg Tablet, 10 MG PO DAILY, (Reported) Citalopram Hydrobromide 20 Mg Tablet, 20 MG PO DAILY, (Reported) Diltiazem HCl 30 Mg Tablet, 30 MG PO TID Prescribed by: MADISON BOURNE on 06/05/22 1028 Docusate Sodium 100 Mg Capsule, 100 MG PO BID PRN for CONSTIPATION-1ST LINE, (Reported) Glucosa Kurtz 2Kcl/Chondroitin Kurtz 500 Mg-400 Mg Capsule, 1 EACH PO 1200, (Reported) Guaifenesin 400 Mg Tablet, 800 MG PO TID, (Reported) TAKES 2 (400MG) TABS Hydrocodone/Acetaminophen 10 Mg-325 Mg Tablet, 1-2 EA PO TID PRN for PAIN- BREAKTHROUGH, (Reported) Lorazepam 0.5 Mg Tablet, 0.5 MG PO BID PRN for ANXIETY, (Reported) Montelukast Sodium 10 Mg Tablet, 10 MG PO HS, (Reported) Morphine Sulfate 60 Mg Tablet.er, 60 MG PO 0200,1400, (Reported) Multivitamin with Minerals 1 Each Tablet, 1 EACH PO 1200, (Reported) Omeprazole 20 Mg Capsule.dr, 20 MG PO DAILY, (Reported) Prednisone 10 Mg Tab.ds.pk, 10 MG PO DAILY Take 6 tabs(60mg)daily,decrease by 1 tab(10MG)daily. Prescribed by: MADISON BOURNE on 06/05/22 1028 Promethazine HCl 25 Mg Tablet, 25 MG PO 1200,1800 PRN for NAUSEA/VOMITING Prescribed by: MADISON BOURNE on 06/05/22 1028 Roflumilast 500 Mcg Tablet, 500 MCG PO DAILY, (Reported) Tamsulosin HCl 0.4 Mg Cap, 0.4 MG PO DAILY, (Reported) Turmeric Root Extract 500 Mg Tablet, 1,000 MG PO DAILY, (Reported) Past Medical/Social/Family Hx Patient Social History Marrital Status: Smoking Status: Former Smoker Immunizations Up To Date First/Initial COVID19 Vaccinat: T Second COVID19 Vaccination [place]: T Tetanus Booster (TDap): Unknown Date of Pneumonia Vaccine: Apr 01, 2016 Current Status Communicates: Verbally Primary Language: Italian Preferred Spoken Language: Italian Sensory deficits: Vision impairment Implanted or Applied Medical D: CPAP Past Medical History COPD HTN Chronic pain Review of Systems Constitutional: see HPI, malaise, other (moderate respiratory distress) Respiratory: see HPI, short of breath, wheezing Other ros per rn Focused Exam Height, Weight, BMI Height: 5'8.00" Weight: 200lbs. 0.0oz. 90.807524uu; 27.58 BMI Method:Stated Exam Exam Patient acknowledged, consented, and participated in this virtual visit which was conducted using real time audio/video Vital Signs Date Time Temp Pulse Resp B/P (MAP) Pulse Ox O2 Delivery O2 Flow Rate FiO2 06/05/22 17:02 36.3 06/05/22 16:59 142 131/91 06/05/22 16:39 132 06/05/22 16:09 36.1 53 16 117/69 98 NIV Bilevel 06/05/22 15:57 135 106/71 06/05/22 14:41 Nasal Cannula 6.00 06/05/22 14:33 158 147/96 06/05/22 14:30 158 24 98 50.00 06/05/22 14:00 36.1 170 48 Nasal Cannula Height & Weight Height: 5'8.00" Weight: 200lbs. 0.0oz. 90.062761dg; 27.58 BMI Method:Stated General Appearance: WD/WN, Mild Distress HEENT: PERRL/EOMI; No Photophobia, No Scleral Icterus (L), No Scleral Icterus (R) Neck: Full Range of Motion, Normal Inspection, Non Tender, Supple Respiratory: Accessory Muscle Use, Decreased Breath Sounds (notably in left lower lobe), Wheezing Cardiovascular: No Murmur, Normal Peripheral Pulses, Tachycardia Gastrointestinal: normal bowel sounds, non tender, soft Extremity: Non Tender, No Calf Tenderness, No Pedal Edema Neurologic/Psychiatric: Alert, Oriented x3 Skin: Warm/Dry, Ecchymosis (bilateral arms) Other comments PE PER RN Results Lab Laboratory Tests 06/05/22 14:20 Assessment/Plan Assessment/Plan ABOVE Critical Care: Critically Ill Patient Time spent with patient (mins): 33 ROZINA COVINGTON MD Jun 05, 2022 17:08
[2022-06-05] MEDS: NS IV 1000 ML 1,000 ML IV SCH (17:20)
[2022-06-05 17:27] LABS: ABG BASE EXCESS 13.2 MMOL/L (-2.5-2.5); ABG OXYGEN SATURATION 99 % (94-100); ABG PCO2 58 MMHG (35-45); ABG PH 7.44 (7.37-7.43); ABG PO2 107 MMHG (79-93); ALLENS TEST YES-POS
[2022-06-05 17:28] LABS: PATIENT TEMP 37.2; VENTILATOR NO
[2022-06-05] MEDS ORDERED: AMIODARONE FOR BOLUS 150 MG in NS (IVPB) 100 ML IV NR (18:00)
[2022-06-05] MEDS: methylPREDNISolone 125 MG (Solu-MEDROL) VIAL IVP SCH (18:02)
[2022-06-05] MEDS: ENOXAPARIN 80 MG/0.8 ML (LOVENOX) SYR SC SCH (18:02)
[2022-06-05 18:57] VITALS: BP 138/78
[2022-06-05] MEDS: AMIODARONE INJECTION 450 MG in NORMAL SALINE 250 ML IV SCH (19:14)
[2022-06-05 19:21] VITALS: BP 147/96
[2022-06-05] MEDS ORDERED: RT-ALBUTEROL SULF 2.5 MG/3 ML PRE-MIX VIAL INH PRN (20:00)
[2022-06-05] MEDS ORDERED: RT-IPRATROPIUM (ATROVENT) 0.5MG/2.5ML AMP IH PRN (20:00)
[2022-06-05] MEDS: MELATONIN 3 MG TABLET PO PRN (20:23)
[2022-06-05] MEDS: SENNOSIDES 8.6 MG (SENOKOT) TAB PO SCH (20:23)
[2022-06-05] MEDS: DOCUSATE SODIUM 100 MG (COLACE) CAP PO SCH (20:30)
[2022-06-05] MEDS: inSUlin ASPART (NovoLOG) 1 UNIT/0.01 ML (CHARGE PER UNIT) SC SCH (20:40)
[2022-06-05] MEDS ORDERED: LORazepam 0.5 MG (ATIVAN) TABLET PO PRN (21:30)
[2022-06-05] MEDS ORDERED: DOCUSATE SODIUM 100 MG (COLACE) CAP PO PRN (21:30)
[2022-06-05] MEDS ORDERED: BACLOFEN 10 MG (LIORESAL) TAB PO PRN (21:30)
[2022-06-05] MEDS ORDERED: PROMETHAZINE 25 MG (PHENERGAN) TAB PO PRN (21:30)
[2022-06-05 22:31] VITALS: BP 133/82
[2022-06-05] MEDS: RT-ALBUTEROL SULF 2.5 MG/3 ML PRE-MIX VIAL INH SCH (22:31)
[2022-06-05] MEDS: RT-IPRATROPIUM (ATROVENT) 0.5MG/2.5ML AMP IH SCH (22:31)
[2022-06-06] MEDS: methylPREDNISolone 125 MG (Solu-MEDROL) VIAL IVP SCH ×4 (00:17→17:45)
[2022-06-06] MEDS: morphine ER 30 MG (MS CONTIN) TAB PO SCH ×2 (00:18→14:24)
[2022-06-06] MEDS: AMIODARONE INJECTION 450 MG in NORMAL SALINE 250 ML IV SCH (00:25)
[2022-06-06] MEDS: RT-IPRATROPIUM (ATROVENT) 0.5MG/2.5ML AMP IH SCH ×6 (02:42→21:12)
[2022-06-06] MEDS: RT-ALBUTEROL SULF 2.5 MG/3 ML PRE-MIX VIAL INH SCH ×6 (02:42→21:12)
[2022-06-06] MEDS: ENOXAPARIN 80 MG/0.8 ML (LOVENOX) SYR SC SCH (04:59)
[2022-06-06 05:59] LABS: BASOPHILS % (AUTO) 0 % (0-10); EOSINOPHILS % (AUTO) 0 % (0-10); HEMATOCRIT 35 % (40-54); HEMOGLOBIN 11.2 g/dL (13.3-17.7); LYMPHOCYTES # (AUTO) 0.2 10^3/uL (1.0-4.0); LYMPHOCYTES % (AUTO) 2 % (12-44); MEAN CORPUSCULAR HEMOGLOBIN 28 pg (25-34); MEAN CORPUSCULAR HGB CONC 32 g/dL (32-36); MEAN CORPUSCULAR VOLUME 87 fL (80-99); MEAN PLATELET VOLUME 10.4 fL (9.0-12.2); MONOCYTES # (AUTO) 0.3 10^3/uL (0.0-1.0); MONOCYTES % (AUTO) 3 % (0-12); NEUTROPHILS # (AUTO) 9.7 10^3/uL (1.8-7.8); NEUTROPHILS % (AUTO) 95 % (42-75); PLATELET COUNT 280 10^3/uL (130-400); WHITE BLOOD COUNT 10.3 10^3/uL (4.3-11.0)
[2022-06-06 06:13] LABS: ALBUMIN 2.9 GM/DL (3.2-4.5); BILIRUBIN,TOTAL 0.3 MG/DL (0.1-1.0); CALCIUM 8.4 MG/DL (8.5-10.1); CREATININE SERUM 0.64 MG/DL (0.60-1.30); MAGNESIUM 1.8 MG/DL (1.6-2.4); PHOSPHORUS 3.9 MG/DL (2.3-4.7); POTASSIUM 3.5 MMOL/L (3.6-5.0); TOTAL PROTEIN 6.1 GM/DL (6.4-8.2)
[2022-06-06] MEDS: MAGNESIUM 1 GM/100 ML IVPB 100 ML IV SCH (06:22)
[2022-06-06] MEDS: inSUlin ASPART (NovoLOG) 1 UNIT/0.01 ML (CHARGE PER UNIT) SC SCH ×4 (06:22→21:00)
[2022-06-06] MEDS: POTASSIUM CL 10MEQ/50ML IVPB 50 ML IV SCH (06:22)
[2022-06-06] MEDS: KCL 20 MEQ TAB (K-DUR) PO SCH (06:22)
[2022-06-06] MEDS: PANTOPRAZOLE 20 MG TABLET (PROTONIX) PO SCH (06:30)
[2022-06-06] MEDS ORDERED: KCL 20 MEQ TAB (K-DUR) PO NR (07:00)
--- NOTE | 2022-06-06 07:52 | Consultation-Cardiology ---
HPI-Cardiology Cardiology Consultation: Date of Consultation 06/06/22 Date of Admission 06-05-22 Attending Physician Sammy Andersen MD Admitting Physician Admitting Physician: Josefa Bourne DO Attending Physician: Josefa Bourne DO Consulting Physician Edward Lockhart MD [id number]-Gfopyg Hx Patient Social History Marrital Status: Smoking Status: Former Smoker 2nd Hand Smoke Exposure: No Have you traveled recently?: No Alcohol Use?: No Pt feels they are or have been: No Immunizations Up To Date Tetanus Booster (TDap): Unknown Date of Pneumonia Vaccine: Apr 01, 2016 Date of Influenza Vaccine: Jan 30, 2022 Past Medical History PMH As described under Assessment. Family Medical History Family History: Cancer 03 FATHER, Onset:Unknown 03 MOTHER, Onset:Unknown Cataract 03 MOTHER, Onset:Unknown Chest pain 03 MOTHER, Onset:Unknown Congenital heart disease Congestive heart failure 03 MOTHER, Onset:Unknown Family history: Allergy 03 MOTHER, Onset:Unknown Family history: Arthritis 03 FATHER, Onset:Unknown 03 MOTHER Family history: Asthma 03 MOTHER, Onset:Unknown Family history: Breast disease 03 MOTHER, Onset:Unknown Family history: Cardiovascular disease 03 MOTHER, Onset:Unknown Family history: Glaucoma 03 FATHER, Onset:Unknown Family history: Hypertension 03 MOTHER, Onset:Unknown Headache 09 SISTER, Onset:Unknown Heart disease 03 MOTHER, Onset:Unknown History of - respiratory disease 03 MOTHER, Onset:Unknown History of drug abuse 09 SISTER, Onset:Unknown Hypercholesterolemia 03 FATHER, Onset:Unknown 03 MOTHER, Onset:Unknown Malignant neoplasm of lung 03 FATHER, Onset:Unknown Stroke 03 MOTHER, Onset:60 years & older No Family History of: Abdominal aortic aneurysm [place]'s disease Alcoholism Aphasia Cancer of colon Cystic fibrosis Dementia Dysphagia Family history: Alzheimer's disease Family history: Coronary thrombosis Family history: Diabetes mellitus Family history: Gastrointestinal disease Family history: Osteoporosis Family history: Thyroid disorder Hearing loss Hereditary disease History of - anemia History of - disorder Human immunodeficiency virus (HIV) seropositivity Infertile Kidney disease Myocardial infarction Parkinson's disease Prostate cancer Psychotic disorder Seizure disorder Tuberculosis Visual impairment Allergies and Home Medications Allergies Coded Allergies: fentanyl (Verified Allergy, Unknown, SOA, 06/10/16) carisoprodol (Verified Adverse Reaction, Unknown, MEAN, 06/10/16) codeine (Verified Adverse Reaction, Unknown, MEAN, 06/10/16) tramadol (Verified Adverse Reaction, Unknown, FORGETFUL, 06/10/16) Patient Home Medication List Acetylcysteine (Nac) 500 Mg Capsule, 500 MG PO BID, (Reported) Entered as Reported by: ADONIS LEPE on 04/14/221211 Last Action: Held Albuterol Sulfate (Ventolin Hfa) 18 Gm Hfa.aer.ad, 2 PUFF INH Q6H PRN for SHORTNESS OF BREATH, (Reported) Entered as Reported by: REGIS WU on 06/11/181749 Last Action: Held Albuterol Sulfate (Albuterol Sulfate) 2.5 Mg/3 Ml (0.083 %) Vial.neb, 2.5 MG NEB Q6H PRN for SHORTNESS OF BREATH, (Reported) Entered as Reported by: REGIS WU on 06/11/181749 Last Action: Held Aspirin/Acetaminophen/Caffeine (Excedrin Extra Strength Caplet) 250 Mg-250 Mg-65 Mg Tablet, 2 TAB PO DAILY, (Reported) Entered as Reported by: REGIS WU on 06/11/181749 Last Action: Converted Baclofen (Baclofen) 10 Mg Tablet, 10 MG PO 1200,1800, (Reported) Entered as Reported by: CHARLEY DELATORRE on 06/11/16421 Last Action: Continued Baclofen (Baclofen) 10 Mg Tablet, 10 MG PO DAILY PRN for MUSCLE CRAMPS, (Reported) Entered as Reported by: ADONIS LEPE on 04/14/221211 Last Action: Continued Budesonide/Glycopyr/Formoterol (Breztri Aerosphere Inhaler) 160 Mcg-9 Mcg-4.8 Mcg/Actuation Hfa.aer.ad, 2 EA PO BID, (Reported) Entered as Reported by: ADONIS LEPE on 04/14/221211 Last Action: Converted Calcium Carbonate/Vitamin D3 (Calcium 600 + Vit D 200 Tablet) 600 Mg Calcium-5 Mcg (200 Unit) Tablet, 2 EA PO 1200, (Reported) Entered as Reported by: REGIS WU on 06/11/181749 Last Action: Held Cetirizine HCl (Zyrtec) 10 Mg Tablet, 10 MG PO DAILY, (Reported) Entered as Reported by: REGIS WU on 06/11/181749 Last Action: Converted Citalopram Hydrobromide (Citalopram HBr) 20 Mg Tablet, 20 MG PO DAILY, (Reported) Entered as Reported by: KELVIN SORIA on 06/12/161146 Last Action: Continued Diltiazem HCl (Diltiazem HCl) 30 Mg Tablet, 30 MG PO TID Prescribed by: JOSEFA BOURNE on 06/05/22 1028 Last Action: Held Docusate Sodium (Colace) 100 Mg Capsule, 100 MG PO BID PRN for CONSTIPATION-1ST LINE, (Reported) Entered as Reported by: REGIS WU on 06/11/18 175 Last Action: Continued Glucosa Kurtz 2Kcl/Chondroitin Kurtz (Glucosamine & Chondroitin Cap) 500 Mg-400 Mg Capsule, 1 EACH PO 1200, (Reported) Entered as Reported by: ADONIS LEPE on 04/14/221211 Last Action: Held Guaifenesin (Mucus Relief) 400 Mg Tablet, 800 MG PO TID, (Reported) Entered as Reported by: KELVIN SORIA on 06/12/161146 Last Action: Converted Hydrocodone/Acetaminophen (Hydrocodone-Acetamin 10-325 mg) 10 Mg-325 Mg Tablet, 1-2 EA PO TID PRN for PAIN-BREAKTHROUGH, (Reported) Entered as Reported by: ADONIS LEPE on 04/14/22 121 Last Action: Continued Lorazepam (Ativan) 0.5 Mg Tablet, 0.5 MG PO BID PRN for ANXIETY, (Reported) Entered as Reported by: ADONIS LEPE on 04/14/22 121 Last Action: Continued Montelukast Sodium (Montelukast Sodium) 10 Mg Tablet, 10 MG PO HS, (Reported) Entered as Reported by: REGIS WU on 06/11/181749 Last Action: Continued Morphine Sulfate (Morphine Sulfate ER) 60 Mg Tablet.er, 60 MG PO 0200,1400, (Reported) Entered as Reported by: KELVIN SORIA on 06/12/161146 Last Action: Converted Multivitamin with Minerals (Multivitamins with Minerals) 1 Each Tablet, 1 EACH PO 1200, (Reported) Entered as Reported by: ADONIS LEPE on 06/01/22 1543 Last Action: Continued Omeprazole (Omeprazole) 20 Mg Capsule.dr, 20 MG PO DAILY, (Reported) Entered as Reported by: KELVIN SORIA on 2/13/17 1147 Last Action: Continued Prednisone (Prednisone) 10 Mg Tab.ds.pk, 10 MG PO DAILY Prescribed by: JOSEFA BOURNE on 06/05/22 1028 Last Action: Held Promethazine HCl (Promethazine Tablet) 25 Mg Tablet, 25 MG PO 1200,1800 PRN for NAUSEA/VOMITING Prescribed by: JOSEFA BOURNE on 06/05/22 1028 Last Action: Continued Roflumilast (Daliresp) 500 Mcg Tablet, 500 MCG PO DAILY, (Reported) Entered as Reported by: ADONIS LEPE on 04/14/221211 Last Action: Continued Tamsulosin HCl (Flomax) 0.4 Mg Cap, 0.4 MG PO DAILY, (Reported) Entered as Reported by: ADONIS LEPE on 04/14/221211 Last Action: Continued Turmeric Root Extract (Turmeric) 500 Mg Tablet, 1,000 MG PO DAILY, (Reported) Entered as Reported by: ADONIS LEPE on 04/14/221211 Last Action: Converted Discontinued Medications Benzonatate (Tessalon Perles) 100 Mg Capsule, 200 MG PO TID Discontinued Reason: No Longer Taking Prescribed by: JOSEFA BOURNE on 04/15/22 110 Cefdinir (Cefdinir) 300 Mg Capsule, 300 MG PO BID Discontinued Reason: No Longer Taking Prescribed by: JOSEFA BOURNE on 04/15/22 110 Doxycycline Hyclate (Doxycycline Hyclate) 100 Mg Tablet, 100 MG PO BID@ Discontinued Reason: No Longer Taking Prescribed by: JOSEFA BOURNE on 04/15/22 110 Prednisone (Prednisone) 10 Mg Tab.ds.pk, 10 MG PO DAILY Discontinued Reason: Duplicate Order Prescribed by: JOSEFA BOURNE on 04/15/22 1102 Physical Exam-Cardiology Physical Exam Vital Signs/I&O 06/07/22 06/07/22 06/07/22 06/08/22 22:14 23:00 23:59 00:00 Temp 36.0 Pulse 86 69 Resp 17 B/P (MAP) 115/104 (108) Pulse Ox 100 94 94 O2 Delivery NIV Bilevel NIV Bilevel O2 Flow Rate 40.00 40.00 FiO2 40 06/08/22 06/08/22 06/08/22 06/08/22 00:00 01:00 01:00 01:00 Pulse 71 90 82 Resp 18 B/P (MAP) 168/96 (120) 127/95 (106) Pulse Ox 95 90 O2 Delivery NIV Bilevel NIV Bilevel NIV Bilevel O2 Flow Rate 40.00 50.00 50.00 06/08/22 06/08/22 06/08/22 06/08/22 01:30 02:00 02:49 03:00 Pulse 76 99 80 81 Resp 26 18 B/P (MAP) 104/89 (94) 170/98 (122) Pulse Ox 96 93 98 97 O2 Delivery NIV Bilevel NIV Bilevel O2 Flow Rate 40.00 50.00 50.00 50.00 06/08/22 06/08/22 06/08/22 06/08/22 03:25 03:28 04:00 04:00 Temp 36.3 Pulse 135 81 B/P (MAP) 170/98 107/80 (89) Pulse Ox 95 98 O2 Delivery NIV Bilevel NIV Bilevel NIV Bilevel O2 Flow Rate 60.00 60.00 FiO2 50 06/08/22 06/08/22 06/08/22 06/08/22 05:00 05:05 06:00 07:00 Pulse 94 83 76 B/P (MAP) 111/68 (82) 107/67 (80) 106/73 (84) Pulse Ox 99 99 87 O2 Delivery NIV Bilevel NIV Bilevel NIV Bilevel NIV Bilevel O2 Flow Rate 60.00 50.00 50.00 50.00 06/08/22 06/08/22 06/08/22 06/08/22 07:00 07:05 07:28 08:00 Pulse 77 76 75 75 Resp 17 B/P (MAP) 112/73 112/73 (86) Pulse Ox 99 100 O2 Delivery NIV Bilevel O2 Flow Rate 45.00 45.00 06/08/22 06/08/22 06/08/22 08:00 09:00 10:04 Temp 36.0 Pulse 73 B/P (MAP) 120/77 (91) Pulse Ox 98 95 O2 Delivery NIV Bilevel NIV Bilevel NIV Bilevel O2 Flow Rate 45.00 45.00 40.00 06/08/22 00:00 Intake Total 500 ml Output Total 200 ml Balance 300 ml Capillary Refill : Data Review Labs Laboratory Tests 06/07/22 10:17: Glucometer 169H 06/07/22 10:30: Blood Gas Puncture Site L RAD, Blood Gas Patient Temperature 34.9, Arterial Blood pH 7.39, Arterial Blood Partial Pressure CO2 63H, Arterial Blood Partial Pressure O2 80, Arterial Blood HCO3 38H, Arterial Blood Total CO2 40.1*H, Arterial Blood Oxygen Saturation 98, Arterial Blood Base Excess 12.1H, Jeff Test YES-POS, Blood Gas Ventilator Setting NO, Blood Gas Inspired Oxygen 40% BIPAP 06/07/22 15:44: Glucometer 176H 06/07/22 21:38: Glucometer 158H 06/08/22 02:00: Blood Gas Puncture Site R RAD, Blood Gas Patient Temperature 36.3, Arterial Blood pH 7.25*L, Arterial Blood Partial Pressure CO2 90*H, Arterial Blood Partial Pressure O2 104H, Arterial Blood HCO3 39H, Arterial Blood Total CO2 41.5*H, Arterial Blood Oxygen Saturation 98, Arterial Blood Base Excess 11.2H, Jeff Test YES-POS, Blood Gas Ventilator Setting NO, Blood Gas Inspired Oxygen 50% 06/08/22 04:25: Blood Gas Puncture Site R RAD, Blood Gas Patient Temperature 36.1, Arterial Blood pH 7.29*L, Arterial Blood Partial Pressure CO2 71*H, Arterial Blood Partial Pressure O2 130H, Arterial Blood HCO3 34H, Arterial Blood Total CO2 35.9H, Arterial Blood Oxygen Saturation 100, Arterial Blood Base Excess 7.1H, Jeff Test YES-POS, Blood Gas Ventilator Setting NO, Blood Gas Inspired Oxygen 50% 06/08/22 04:46: White Blood Count 13.3H, Red Blood Count 4.10L, Hemoglobin 11.2L, Hematocrit 37L , Mean Corpuscular Volume 91, Mean Corpuscular Hemoglobin 27, Mean Corpuscular Hemoglobin Concent 30L, Red Cell Distribution Width 16.2H, Platelet Count 265, Mean Platelet Volume 9.9, Immature Granulocyte % (Auto) 1, Neutrophils (%) (Auto) 96H, Lymphocytes (%) (Auto) 1L, Monocytes (%) (Auto) 2, Eosinophils (%) (Auto) 0, Basophils (%) (Auto) 0, Neutrophils # (Auto) 12.8H, Lymphocytes # (Auto) 0.2L, Monocytes # (Auto) 0.3, Eosinophils # (Auto) 0.0, Basophils # (Auto) 0.0, Immature Granulocyte # (Auto) 0.1, Sodium Level 141, Potassium Level 4.4, Chloride Level 99, Carbon Dioxide Level 27, Anion Gap 15H, Blood Urea Nitrogen 45H, Creatinine 0.90, Estimat Glomerular Filtration Rate 97, BUN/Creatinine Ratio 50, Glucose Level 214H, Calcium Level 9.1, Corrected Calcium 9.6, Phosphorus Level 5.7H, Magnesium Level 2.1, Total Bilirubin 0.4, Aspartate Amino Transf (AST/SGOT) 18, Alanine Aminotransferase (ALT/SGPT) 22, Alkaline Phosphatase 63, Total Protein 6.4, Albumin 3.4 06/08/22 08:04: Blood Gas Puncture Site RRAD, Blood Gas Patient Temperature 36, Arterial Blood pH 7.36L, Arterial Blood Partial Pressure CO2 58H, Arterial Blood Partial Pressure O2 108H, Arterial Blood HCO3 33H, Arterial Blood Total CO2 34.8H, Arterial Blood Oxygen Saturation 99, Arterial Blood Base Excess 7.4H, Jeff Test YES-POS, Blood Gas Ventilator Setting NO, Blood Gas Inspired Oxygen 45% Microbiology 06/05/22 MRSA Screen - Final, Complete MRSA not isolated 06/05/22 Urine Culture - Preliminary, Resulted Culture In Progress Radiology NAME: KAYA CARPENTER [facility] REC#: [id number] PT STATUS: REG ER : 1960 PHYSICIAN: EDGARDO FRANCE APRN ADMIT DATE: 06/05/22/ER Signed Date of Exam:06/05/22 CHEST 1 VIEW, AP/PA ONLY EXAMINATION: Chest 1 view HISTORY: Shortness of breath. COMPARISON: 06/01/2022. FINDINGS: Hazy opacities are seen in the left lung base. Chronic fibrotic changes are seen in both lung bases. The lungs are hyperinflated. The heart size is normal. There is calcified aortic atherosclerotic plaque. Radiopaque material is seen in the left chest, similar to the prior exam. IMPRESSION: 1. Hazy opacities in the left lung base, which may represent atelectasis or infection. 2. Hyperinflated lung volumes with chronic fibrotic changes. Dictated by: Dictated on workstation # [id number] Dict: 06/05/22 1503 Trans: 06/05/22 1516 [id number] [id number] Interpreted by: AN MELENDEZ DO Electronically signed by: AN MELENDEZ DO 06/05/22 [id number] A/P-Cardiology Assessment/Admission Diagnosis CAD: - Card cath of 10/22/18: Moderate coronary artery disease. There is approximately 50% mid vessel stenosis of the left anterior descending. Normal global left ventricular systolic function with ejection fraction approximately 65%. Moderate elevation of left ventricular end-diastolic pressure COPD: - Severe, oxygen-dependent, COPD - Quit tobacco use in or around 2007 - Type 2 acute resp failure due to ac exac of COPD in 2018 Obesity - (BMI approx 31) with obesity-hypovent Chronic diastolic CHF - Echocardiogram of 01-24-21 showed LVEF 55-60% Medication intolerance - H/o hyperkalemia when on AZ-inhibitors Hypertension and white-coat hypertension Urinary obstruction - managed by Dr Carpenter, currently on Flomax Carotid arterial disease - mild on carotid u/s of October 2019 GARY JAMES Jun 06, 2022 07:52
[2022-06-06 08:03] LABS: FREE T4 (FREE THYROXINE) 1.34 NG/DL (0.70-1.48)
--- NOTE | 2022-06-06 08:06 | Diagnostic Imaging Report ---
Indication: COPD Single AP view of the chest is obtained with comparison made to study one day earlier. There is background emphysema with prominent interstitial markings in both lungs. There has been mild increase in perihilar interstitial densities may reflect edema or pneumonitis. No pneumothorax or lobar consolidations identified. There may be small amount of pleural fluid or thickening. IMPRESSION: Background emphysema and COPD with mild worsening perihilar edema and/or pneumonitis. There is associated left pleural thickening with metallic fragments projecting over the left upper thorax as well as medial left lung. Dictated by: Dictated on workstation # [id number]
--- NOTE | 2022-06-06 08:50 | Cardiology Progress Note ---
Subjective Date Seen by Provider: Jun 06, 2022 Time Seen by Provider: 07:45 Subjective/Events-last exam No acute events overngiht. Started on amiodarone gtt and converted to NSR at 2000 hrs last night. Doing well today with HRs ranging from 70-100s with frequent PACs. Off BiPAP on HF NC Objective-Cardiology Exam Last Set of Vital Signs Vital Signs 06/05/22 06/06/22 23:59 08:00 Temp 36.3 Pulse 89 Resp 19 B/P (MAP) 151/114 (126) Pulse Ox 97 O2 Delivery High Flow N/C O2 Flow Rate 6.00 FiO2 40 I&O Intake and Output 06/06/22 00:00 Intake Total 100 ml Output Total 300 ml Balance -200 ml Intake Oral 100 ml Output Urine Total 300 ml General: Alert, Oriented X3, No Acute Distress HEENT: Atraumatic Neck: Supple, No JVD Lungs: Other (dimininshed air movement in bilateral lung perea. Rales in bilateral bases. no wheezing or rhonchi appreciated) Heart: Regular Rate, No Murmurs, Gallops Extremities: No Clubbing, No Cyanosis, No Edema Psych/Mental Status: Mental Status NL Results Lab Laboratory Tests 06/05/22 14:20 06/06/22 04:47 A/P-Cardiology Assessment/Plan 61 yo M, with a past medical history of COPD, hypertension, hyperlipidemia, gastroesophageal reflux disease, hypothyroidism, and diastolic heart failure, presents to ED with a chief complaint of Respiratory Problems, noting palpitations and low saturation levels, found to be in AF with RVR. ## AF with RVR: Converted to NSR last night. Pt notes this is the first time he has been told her had AF. Considered new onset. - check BNP, TSH and FT4. - elevated heart rate and low O2. - d/c lovenox and transition to eliquis 5 bid - start dilt 45 q6h and transition to CD formulation in AM if able to maintain NSR or atleast HRs < 115 - amiodarone gtt should continue for a total of 24hrs ## PNA - ? anitbiotics ## COPD - plan per hospitalist ## HTN: SBP 120-140s - cont current regimen - reintroduce diltiazem as noted above SOFI BRADLEY MD Jun 06, 2022 08:50
[2022-06-06] MEDS ORDERED: TURMERIC ROOT EXTRACT 1000 MG PO SCH (09:00)
[2022-06-06] MEDS: TAMSULOSIN 0.4 MG (FLOMAX) CAP PO SCH (09:07)
[2022-06-06] MEDS: SENNOSIDES 8.6 MG (SENOKOT) TAB PO SCH ×2 (09:07→23:16)
[2022-06-06] MEDS: ROFLUMILAST 500 MCG TAB (DALIRESP) PO SCH (09:07)
[2022-06-06] MEDS: LORATADINE (CLARITIN) 10 MG TAB PO SCH (09:08)
[2022-06-06] MEDS: DOCUSATE SODIUM 100 MG (COLACE) CAP PO SCH ×2 (09:08→23:16)
[2022-06-06] MEDS: guaiFENesin SYRUP 100 MG/5 ML 10 ML (ROBITUSSIN SF) PO SCH ×3 (09:14→20:59)
[2022-06-06] MEDS: UMECLIDINIUM BROMIDE (INCRUSE ELLIPTA) 7'S IH SCH (10:12)
[2022-06-06] MEDS: RT--FLUTICASONE/SALMETEROL 232-14 (AIRDUO RespiCLICK) IH SCH ×2 (10:12→21:12)
[2022-06-06] MEDS: NS IV 1000 ML 1,000 ML IV SCH (10:28)
[2022-06-06] MEDS: LORazepam INJ 2 MG/ML (ATIVAN) VIAL IVP PRN ×2 (10:40→14:24)
--- NOTE | 2022-06-06 10:58 | Tele-ICU Progress Note ---
Subjective Date Seen by a Provider: Jun 06, 2022 Time Seen by a Provider: 10:58 Subjective/Events-last exam (Tele-ICU Physician , Progress Note ) Service provided via interactive audio and video telecommunications E-CARE system to a patient admitted to ICU bed in [facility]. Patient is seen today due to persistent need of ICU care Available chart/ vitals / labs / Images reviewed Video assessment done using teleICU camera, rest of exam as per RN Discussed with RN Events overnight : Afebrile hemodynamically stable Respiratory - 10 L I/O = pos 1.5 l Drips: Pressors- no Consultants: Hospital course: (06/01) 61M admitted for PNA/ AECOPD Placed on Bipap in ER. 06/02 - 10 L o2 - d/c 06/05 (06/05)Returns with acute COPD exacerbation, rapid afib. Bipap and cardizem 06/06 - amio gtt , 6 L A/P Acute on chronic ( hypoxic and hypercapneic ) resp failure - NIPPV prn - on 6 L now - steroids , ABX , nebs AECOPD ( with advanced severe COPD at baseline , O2 dependent 2 L O2 ) - IV steroids ( as per chart was d/c on prednisone 04/17/22 - nebs Leucocytosis with suspected PNA RLL ( negative for COVID influenza) - with recetly TX for PNA a FIB RVR - amio gtt Echo on 06/13/18: LVEF 55-60%, PASP 30 mmHg - monitor fluid status Anxiety - prn Tx Lines : periph , (Central Line Necessity Reviewed) [place]: void OG: Nutrition: as toleraes po Analgesia: Anxiety/ delirium VTE Prophylaxis: barbara Stress Ulcer Prophylaxis: ppi Plans in collaboration with bedside consultants and IM MDs. Discussed with RN to reach out if any questions or concerns A total of 25 minutes of critical care time was devoted to this patient today, required to treat and/or prevent further deterioration of critical care condition ( as above ) . I am remotely monitoring this patient from another state. I am unable to do the bedside exam, and history/physical and pertinent information is taken from other notes in the computer and bedside staff. . Sepsis Event Evaluation Height, Weight, BMI Height: 5'8.00" Weight: 200lbs. 0.0oz. 90.830766sg; 27.35 BMI Method:Stated Exam Exam Patient acknowledged, consented, and participated in this virtual visit which was conducted using real time audio/video Vital Signs Date Time Temp Pulse Resp B/P (MAP) Pulse Ox O2 Delivery O2 Flow Rate FiO2 06/06/22 10:37 NIV Bilevel 50.00 06/06/22 10:12 98 High Flow N/C 6.00 06/06/22 10:00 93 34 97 High Flow N/C 6.00 06/06/22 09:45 109 18 160/84 (109) 97 High Flow N/C 6.00 06/06/22 09:00 85 17 150/96 (114) 98 High Flow N/C 6.00 06/06/22 08:00 36.3 06/06/22 08:00 89 19 151/114 (126) 97 High Flow N/C 6.00 06/06/22 07:36 77 06/06/22 07:00 75 9 134/82 (99) 98 High Flow N/C 6.00 06/06/22 06:55 100 High Flow N/C 6.00 06/06/22 06:00 70 15 141/85 (103) 97 High Flow N/C 6.00 06/06/22 05:00 80 18 144/91 (110) 96 High Flow N/C 6.00 06/06/22 04:00 77 22 124/69 (88) 98 High Flow N/C 6.00 06/06/22 04:00 36.3 06/06/22 04:00 96 High Flow N/C 6.00 06/06/22 03:00 75 13 133/78 (101) 97 High Flow N/C 6.00 06/06/22 02:45 97 High Flow N/C 6.00 06/06/22 02:42 99 High Flow N/C 6.00 06/06/22 02:00 71 15 129/78 (98) 98 High Flow N/C 6.00 06/06/22 01:00 97 06/06/22 01:00 97 27 129/83 (98) 99 High Flow N/C 6.00 06/06/22 00:10 High Flow N/C 6.00 06/06/22 00:00 113 16 131/83 (99) 98 NIV Bilevel 40.00 06/05/22 23:59 98 NIV Bilevel 40 06/05/22 23:00 85 17 112/70 (89) 96 NIV Bilevel 40.00 06/05/22 22:43 NIV Bilevel 40.00 06/05/22 22:38 40.00 06/05/22 22:35 NIV Bilevel 50.00 06/05/22 22:31 74 20 99 50.00 06/05/22 22:28 99 High Flow N/C 6.00 06/05/22 22:00 86 17 129/71 (97) 98 High Flow N/C 6.00 06/05/22 21:00 81 14 116/70 (88) 96 High Flow N/C 6.00 06/05/22 20:22 36.3 06/05/22 20:15 High Flow N/C 6.00 06/05/22 20:00 105 22 135/99 (114) 99 NIV Bilevel 50.00 06/05/22 19:49 98 NIV Bilevel 50 06/05/22 19:21 36.1 170 98 50 06/05/22 19:00 112 06/05/22 19:00 112 28 138/78 (113) 98 NIV Bilevel 50.00 06/05/22 18:57 110 20 98 50.00 06/05/22 18:03 129 147/97 06/05/22 18:00 128 147/97 (114) 98 NIV Bilevel 50.00 06/05/22 17:15 140 31 136/91 (106) 99 NIV Bilevel 50.00 06/05/22 17:02 36.3 06/05/22 17:00 147 32 151/128 (136) 99 NIV Bilevel 50.00 06/05/22 16:59 142 131/91 06/05/22 16:45 98 NIV Bilevel 50 06/05/22 16:45 122 16 131/91 (104) 99 NIV Bilevel 50.00 06/05/22 16:39 132 06/05/22 16:30 129 20 142/95 (111) 99 NIV Bilevel 50.00 06/05/22 16:09 36.1 53 16 117/69 98 NIV Bilevel 06/05/22 15:57 135 106/71 06/05/22 14:41 Nasal Cannula 6.00 06/05/22 14:33 158 147/96 06/05/22 14:30 158 24 98 50.00 06/05/22 14:00 36.1 170 48 Nasal Cannula I & O 06/06/22 07:00 Intake Total 550 ml Output Total 625 ml Balance -75 ml Height & Weight Height: 5'8.00" Weight: 200lbs. 0.0oz. 90.250732gt; 27.35 BMI Method:Stated General Appearance: WD/WN, Anxious, Mild Distress, Other (bipap) HEENT: PERRL/EOMI; No Photophobia, No Scleral Icterus (L), No Scleral Icterus (R) Neck: Full Range of Motion, Normal Inspection, Non Tender, Supple Respiratory: No Respiratory Distress, Accessory Muscle Use, Decreased Breath Sounds (notably in left lower lobe), Wheezing Cardiovascular: Irregularly Irregular, Tachycardia Gastrointestinal: normal bowel sounds, non tender, soft Extremity: Non Tender, No Calf Tenderness, No Pedal Edema Neurologic/Psychiatric: Alert, Oriented x3 Skin: Warm/Dry, Ecchymosis (bilateral arms) Results Lab Laboratory Tests 06/05/22 14:20 06/06/22 04:47 Assessment/Plan Assessment/Plan 1 NATHEN DAMIAN MD Jun 06, 2022 10:58
--- NOTE | 2022-06-06 11:24 | Physical Therapy Progress Note ---
Therapy Progress Note PT consulted with RN on patient. Patient currently sleeping after receiving ativan and is on BiPap. PT will attempt later today. GARFIELD SAUNDERS PT Jun 06, 2022 11:24
[2022-06-06] MEDS: MULTIVIT W/MINERALS TAB (THERAGRAN M) PO SCH (12:11)
[2022-06-06] MEDS: BACLOFEN 10 MG (LIORESAL) TAB PO SCH ×2 (12:24→17:45)
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
--- NOTE | 2022-06-06 13:45 | Physical Therapy Progress Note ---
Therapy Progress Note Patient adamantly declined PT attempt stating, "I'm fine in bed. I get anxious and I can't breathe. I'm not getting out of bed today. Maybe tomorrow." RN present. 1 ref GARFIELD SAUNDERS PT Jun 06, 2022 13:45
[2022-06-06 14:10] VITALS: BP 148/85
[2022-06-06 15:15] LABS: BILIRUBIN,URINE NEGATIVE (NEGATIVE); CLARITY,URINE CLEAR; COLOR,URINE YELLOW; GLUCOSE, URINE (UA) NEGATIVE (NEGATIVE); KETONES,URINE 1+ (NEGATIVE); LEUKOCYTE ESTERASE ,URINE NEGATIVE (NEGATIVE); NITRITE,URINE NEGATIVE (NEGATIVE); PROTEIN,URINE 2+ (NEGATIVE)
--- NOTE | 2022-06-06 15:19 | Occ Therapy Progress Note ---
Therapy Progress Note OT received order and reviewed chart, patient agreeable to discuss plans however refuses OOB activity this date, patient agreeable to evaluate tomorrow TRACY HARPER OT Jun 06, 2022 15:19
[2022-06-06 15:42] LABS: BACTERIA,URINE FEW /HPF; RBC,URINE 0-2 /HPF; URIC ACID CRYSTALS,URINE FEW /LPF; WBC,URINE RARE /HPF
[2022-06-06 19:02] VITALS: BP 133/88
[2022-06-06] MEDS: APIXABAN 5 MG (ELIQUIS) TABLET PO SCH (20:59)
[2022-06-06] MEDS: MELATONIN 3 MG TABLET PO PRN (20:59)
[2022-06-06] MEDS: MONTELUKAST 10 MG (SINGULAIR) TAB PO SCH (20:59)
[2022-06-07] MEDS: methylPREDNISolone 125 MG (Solu-MEDROL) VIAL IVP SCH ×5 (00:13→23:39)
[2022-06-07] MEDS: morphine ER 30 MG (MS CONTIN) TAB PO SCH ×2 (00:14→15:32)
[2022-06-07] MEDS: RT-ALBUTEROL SULF 2.5 MG/3 ML PRE-MIX VIAL INH SCH ×6 (02:24→22:13)
[2022-06-07] MEDS: RT-IPRATROPIUM (ATROVENT) 0.5MG/2.5ML AMP IH SCH ×6 (02:24→22:13)
[2022-06-07] MEDS: NS IV 1000 ML 1,000 ML IV SCH ×2 (04:22→18:13)
[2022-06-07 05:21] LABS: BASOPHILS % (AUTO) 0 % (0-10); EOSINOPHILS % (AUTO) 0 % (0-10); HEMATOCRIT 35 % (40-54); HEMOGLOBIN 10.6 g/dL (13.3-17.7); LYMPHOCYTES # (AUTO) 0.2 10^3/uL (1.0-4.0); LYMPHOCYTES % (AUTO) 3 % (12-44); MEAN CORPUSCULAR HEMOGLOBIN 27 pg (25-34); MEAN CORPUSCULAR HGB CONC 31 g/dL (32-36); MEAN CORPUSCULAR VOLUME 88 fL (80-99); MEAN PLATELET VOLUME 10.5 fL (9.0-12.2); MONOCYTES # (AUTO) 0.3 10^3/uL (0.0-1.0); MONOCYTES % (AUTO) 3 % (0-12); NEUTROPHILS # (AUTO) 8.4 10^3/uL (1.8-7.8); NEUTROPHILS % (AUTO) 94 % (42-75); PLATELET COUNT 275 10^3/uL (130-400); WHITE BLOOD COUNT 8.9 10^3/uL (4.3-11.0)
[2022-06-07 05:55] LABS: ALBUMIN 2.9 GM/DL (3.2-4.5); BILIRUBIN,TOTAL 0.3 MG/DL (0.1-1.0); CALCIUM 8.6 MG/DL (8.5-10.1); CREATININE SERUM 0.61 MG/DL (0.60-1.30); PHOSPHORUS 3.3 MG/DL (2.3-4.7); TOTAL PROTEIN 5.8 GM/DL (6.4-8.2)
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
[2022-06-07] MEDS: inSUlin ASPART (NovoLOG) 1 UNIT/0.01 ML (CHARGE PER UNIT) SC SCH ×4 (06:37→21:43)
[2022-06-07] MEDS: PANTOPRAZOLE 20 MG TABLET (PROTONIX) PO SCH (06:39)
[2022-06-07] MEDS: UMECLIDINIUM BROMIDE (INCRUSE ELLIPTA) 7'S IH SCH (06:46)
[2022-06-07] MEDS: RT--FLUTICASONE/SALMETEROL 232-14 (AIRDUO RespiCLICK) IH SCH ×2 (06:46→22:13)
[2022-06-07] MEDS: KCL 20 MEQ TAB (K-DUR) PO SCH (06:50)
[2022-06-07] MEDS: MAGNESIUM 1 GM/100 ML IVPB 100 ML IV SCH (06:50)
[2022-06-07] MEDS: POTASSIUM CL 10MEQ/50ML IVPB 50 ML IV SCH (06:50)
[2022-06-07] MEDS: LORazepam INJ 2 MG/ML (ATIVAN) VIAL IVP PRN (08:46)
--- NOTE | 2022-06-07 08:59 | Tele-ICU Progress Note ---
Subjective Date Seen by a Provider: Jun 07, 2022 Time Seen by a Provider: 08:54 Subjective/Events-last exam Admitted for AECOPD, also rapid a fib, placed on po cardizem, after being changed this am has increased resp distress, SpO2 is 100% but has incrased WOB Now on BiPAP 16/8 FiO2 40%, Uses oxygen at home, 6 lpm Sepsis Event Evaluation Height, Weight, BMI Height: 5'8.00" Weight: 200lbs. 0.0oz. 90.538244op; 27.35 BMI Method:Stated Exam Exam Patient acknowledged, consented, and participated in this virtual visit which was conducted using real time audio/video Vital Signs Date Time Temp Pulse Resp B/P (MAP) Pulse Ox O2 Delivery O2 Flow Rate FiO2 06/07/22 08:24 High Flow N/C 6.00 06/07/22 08:00 36.2 06/07/22 07:00 NIV Bilevel 45.00 06/07/22 06:56 High Flow N/C 6.00 06/07/22 06:51 98 High Flow N/C 5.00 06/07/22 06:46 98 High Flow N/C 5.00 06/07/22 06:00 64 22 124/71 (88) 98 NIV Bilevel 45.00 06/07/22 05:00 66 12 116/72 (87) 98 NIV Bilevel 45.00 06/07/22 04:29 NIV Bilevel 45.00 06/07/22 04:23 High Flow N/C 6.00 06/07/22 04:00 68 15 109/68 (82) 97 NIV Bilevel 45.00 06/07/22 04:00 92 NIV Bilevel 45 06/07/22 04:00 36.6 06/07/22 03:00 84 120/73 (89) 96 NIV Bilevel 45.00 06/07/22 02:43 NIV Bilevel 45.00 06/07/22 02:25 95 High Flow N/C 5.00 06/07/22 02:24 95 High Flow N/C 5.00 06/07/22 02:00 72 14 126/77 (93) 95 High Flow N/C 6.00 06/07/22 01:00 72 06/07/22 01:00 72 14 115/75 (88) 96 High Flow N/C 6.00 06/07/22 00:16 High Flow N/C 6.00 06/07/22 00:00 62 12 106/73 (84) 97 NIV Bilevel 45.00 06/06/22 23:59 92 High Flow N/C 6.00 06/06/22 23:00 70 17 102/68 (79) 97 NIV Bilevel 45.00 06/06/22 22:00 79 15 98/68 (78) 97 NIV Bilevel 45.00 06/06/22 21:13 94 High Flow N/C 5.00 06/06/22 21:12 94 High Flow N/C 5.00 06/06/22 21:00 78 13 119/72 (88) 96 NIV Bilevel 45.00 06/06/22 20:00 98 NIV Bilevel 45 06/06/22 20:00 89 14 115/72 (86) 98 NIV Bilevel 45.00 06/06/22 20:00 37.0 06/06/22 19:02 99 24 96 45.00 06/06/22 19:00 NIV Bilevel 45.00 06/06/22 19:00 106 22 133/88 (103) 94 NIV Bilevel 45.00 06/06/22 19:00 106 06/06/22 18:00 100 20 137/77 (97) 93 NIV Bilevel 50.00 06/06/22 17:00 101 16 150/100 (117) 94 NIV Bilevel 50.00 06/06/22 16:48 98 NIV Bilevel 45 06/06/22 16:00 89 14 109/77 (88) 98 NIV Bilevel 50.00 06/06/22 15:50 36.8 06/06/22 15:00 118 29 154/87 (109) 89 NIV Bilevel 50.00 06/06/22 14:10 101 26 99 50.00 06/06/22 14:00 104 35 148/85 (106) 99 NIV Bilevel 50.00 06/06/22 13:41 NIV Bilevel 50.00 06/06/22 13:02 101 06/06/22 13:00 94 19 140/76 (97) 95 High Flow N/C 6.00 06/06/22 12:35 98 NIV Bilevel 50 06/06/22 12:20 High Flow N/C 6.00 06/06/22 12:00 89 19 122/82 (95) 100 NIV Bilevel 50.00 06/06/22 12:00 36.3 06/06/22 11:00 110 19 133/85 (101) 99 NIV Bilevel 50.00 06/06/22 10:37 NIV Bilevel 50.00 06/06/22 10:12 98 High Flow N/C 6.00 06/06/22 10:00 93 34 97 High Flow N/C 6.00 06/06/22 09:45 109 18 160/84 (109) 97 High Flow N/C 6.00 06/06/22 09:00 85 17 150/96 (114) 98 High Flow N/C 6.00 I & O 06/07/22 07:00 Intake Total 1210 ml Output Total 1175 ml Balance 35 ml Height & Weight Height: 5'8.00" Weight: 200lbs. 0.0oz. 90.019039gf; 27.35 BMI Method:Stated General Appearance: No Apparent Distress, WD/WN, Moderate Distress HEENT: PERRL/EOMI, TMs Normal Neck: Full Range of Motion, Normal Inspection, Non Tender, Supple Respiratory: Chest Non Tender, No Accessory Muscle Use, No Respiratory Distress , Decreased Breath Sounds, Wheezing, Other (RN reports wheeze LLL) Cardiovascular: Regular Rate, Rhythm, No Edema, No Gallop, No JVD, Irregularly Irregular, Tachycardia Capillary Refill: Less Than 3 Seconds Peripheral Pulses: 2+ Radial Pulses (R), 2+ Radial Pulses (L) Gastrointestinal: normal bowel sounds, non tender, soft Extremity: Normal Inspection, Normal Range of Motion, Non Tender, No Pedal Edema Neurologic/Psychiatric: Alert, Oriented x3, No Motor/Sensory Deficits, Normal Mood/Affect Skin: Normal Color, Warm/Dry Results Lab Laboratory Tests 06/05/22 14:20 06/06/22 04:47 06/07/22 04:13 Assessment/Plan Assessment/Plan COPD, appears stable, will continue current bronchodilators a fib, also increased this amcontrol, continue po cardizem If needed IV Precedex ordered Critical Care: Critically Ill Patient Time spent with patient (mins): 20 ITZ GUILLERMO MD Jun 07, 2022 08:59
--- NOTE | 2022-06-07 09:06 | Physical Therapy Evaluation ---
PT Evaluation-General Medical Diagnosis Admission Date Jun 05, 2022 at 15:15 Medical Diagnosis: resp. failure, AF with RVR Onset Date: Jun 05, 2022 Therapy Diagnosis Therapy Diagnosis: impaired mobility, strength, endurance Height/Weight Height (Feet): 5 Height (Inches): 8.00 Weight (Pounds): 200 Weight (Ounces): 0.0 Precautions Precautions/Isolations: Fall Prevention, Standard Precautions, Pressure Ulcer Weight Bear Status Right Lower Extremity: Right Weight Bearing/Tolerated Left Lower Extremity: Left Weight Bearing/Tolerated Referral Physician: Josefa Davison DO Reason for Referral: Evaluation/Treatment Medical History Pertinent Medical History: COPD, HTN Additional Medical History Past Medical History Surgeries: Orthopedic Chronic Bronchitis, COPD Currently Using CPAP: Yes Currently Using BIPAP: No High Cholesterol, Hypertension Sexually Transmitted Disease: No HIV/AIDS: No Gastroesophageal Reflux Chronic Back Pain Hypothyroidsim Blood Disorders: No COPD HTN Chronic pain Reviewed History: Yes Social History Current Living Status: friend Entry Into Home: Ramp Prior Prior Level of Function SCALE: Activities may be completed with or without assistive devices. 0-Ekfackavzn-rfkzbay completes the activity by him/herself with no assistance from a helper. 5-Set-up or Clean-up Assistance-helper sets up or cleans up; patient completes activity. [place] assists only prior to or following the activity. 4-Supervision or Touching Assistance-helper provides verbal cues and/or elaina karol/steadying and/or contact guard assistance as patient completes activity. Assistance may be provided throughout the activity or intermittently. 3-Partial/Moderate Assistance-helper does LESS THAN HALF the effort. [place] lifts, holds or supports trunk or limbs, but provides less than half the effort. 2-Substantial/Maximal Assistance-helper does MORE THAN HALF the effort. [place] lifts or holds trunk or limbs and provides more than half the effort. 5-Lmqlrnttn-ljsjgk does ALL the effort. Patient does none of the effort to complete the activity. Or, the assistance of 2 or more helpers is required for the patient to complete the activity. If activity was not attempted, code reason: 7-Patient Refused. 9-Not Applicable-not attempted and the patient did not perform the activity before the current illness, exacerbation or injury. 10-Not Attempted due to Environmental Limitations-(lack of equipment, weather restraints, etc.). 88-Not Attempted due to Medical Conditions or Safety Concerns. Bed Mobility: 6 Transfers (B,C,W/C): 6 Gait: 6 Indoor Mobility (Ambulation): Independent PT Evaluation-Current Subjective Patient in bed pre tx, agrees to PT, states he has pain "all over". Patient can barely talk because he is so short of breath. Patient has urinated in bed and needs cleaned, nurse aide assists. Pt/Family Goals to be independent at home Objective Patient Orientation: Person, Place, Situation Attachments: Oxygen ROM/Strength ROM Lower Extremities WNL Strength Lower Extremities NT Sensory Vision: Wears Glasses Hearing: Functional Transfers Roll Left to Right (QC): 3 Min assist for rolling, patient can roll better to the right side, doesn't like to roll to his left side. Patient is cleaned and pads changed. Patient gets extremely SOB during even minimal activity, cannot do more than roll at this time. Patient is too short of breath to talk. O2 drops to 80%, nurse puts on bipap. Assessment/Needs Patient in bed post tx with nurse in room. Patient cannot do much right now due to SOB, most of the time was spent just trying to get the patient in a better position so he could breathe better. Patient is very fragile. Rehab Potential: Poor PT Wage Analyst Goals Wage Analyst Goals PT Wage Analyst Goals Time Frame: Jun 14, 2022 Roll Left & Right (QC): 3 Sit to Lying (QC): 3 Lying-Sitting on Side/Bed(QC): 3 PT Plan Problem List Problem List: Activity Tolerance, Functional Strength, Safety, Balance, Gait, Transfer, Bed Mobility, ROM Treatment/Plan Treatment Plan: Continue Plan of Care Treatment Plan: Bed Mobility, Education, Functional Activity [place], Functional Strength, Gait, Safety, Therapeutic Exercise, Transfers Treatment Duration: Jun 14, 2022 Frequency: 6 times per week Estimated Hrs Per Day: .25 hour per day Patient and/or Family Agrees t: Yes Safety Risks/Education Patient Education: Correct Positioning, Safety Issues Teaching Recipient: Patient Teaching Methods: Demonstration, Discussion Response to Teaching: Reinforcement Needed Discharge Recommendations Plan Patient will perform bed mobility and transfer training, balance and endurance training, functional strengthening, stair training, gait training, and education, to improve functional mobility and independence at home. Therapy Discharge Recommendati: Other, See Comments ([place]) Time Time In: 824 Time Out: 839 DATE: Jun 07, 2022 Total Billed Treatment Time: 15 Total Billed Treatment 1 visit [facility] 15' SALLY ANDERSEN PT Jun 07, 2022 09:06
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
--- NOTE | 2022-06-07 09:33 | Progress Note - Cardiology ---
Cardiology SOAP Progress Note Subjective: On BiPAP Communication difficult Denies cp Does have shortness of breath with minimal activity Denies palp or syncope Chronic, intermittent leg swelling No n/v/d Objective: I&O/Vital Signs 06/06/22 06/06/22 06/06/22 06/07/22 22:00 23:00 23:59 00:00 Pulse 79 70 62 Resp 15 17 12 B/P (MAP) 98/68 (78) 102/68 (79) 106/73 (84) Pulse Ox 97 97 92 97 O2 Delivery NIV Bilevel NIV Bilevel High Flow N/C NIV Bilevel O2 Flow Rate 45.00 45.00 6.00 45.00 06/07/22 06/07/22 06/07/22 06/07/22 00:16 01:00 01:00 02:00 Pulse 72 72 72 Resp 14 14 B/P (MAP) 115/75 (88) 126/77 (93) Pulse Ox 96 95 O2 Delivery High Flow N/C High Flow N/C High Flow N/C O2 Flow Rate 6.00 6.00 6.00 06/07/22 06/07/22 06/07/22 06/07/22 02:24 02:25 02:43 03:00 Pulse 84 B/P (MAP) 120/73 (89) Pulse Ox 95 95 96 O2 Delivery High Flow N/C High Flow N/C NIV Bilevel NIV Bilevel O2 Flow Rate 5.00 5.00 45.00 45.00 06/07/22 06/07/22 06/07/22 06/07/22 04:00 04:00 04:00 04:23 Temp 36.6 Pulse 68 Resp 15 B/P (MAP) 109/68 (82) Pulse Ox 92 97 O2 Delivery NIV Bilevel NIV Bilevel High Flow N/C O2 Flow Rate 45.00 6.00 FiO2 45 06/07/22 06/07/22 06/07/22 06/07/22 04:29 05:00 06:00 06:46 Pulse 66 64 Resp 12 22 B/P (MAP) 116/72 (87) 124/71 (88) Pulse Ox 98 98 98 O2 Delivery NIV Bilevel NIV Bilevel NIV Bilevel High Flow N/C O2 Flow Rate 45.00 45.00 45.00 5.00 2/8/06/07/22 06/07/22 06/07/22 06:51 06:56 07:00 07:00 Pulse 98 Resp 29 B/P (MAP) 168/95 (119) Pulse Ox 98 98 O2 Delivery High Flow N/C High Flow N/C NIV Bilevel NIV Bilevel O2 Flow Rate 5.00 6.00 45.00 45.00 06/07/22 06/07/22 06/07/22 06/07/22 07:45 08:00 08:00 08:24 Temp 36.2 Pulse 80 80 Resp 13 B/P (MAP) 111/73 (86) Pulse Ox 96 O2 Delivery NIV Bilevel High Flow N/C O2 Flow Rate 45.00 6.00 06/07/22 06/07/22 09:00 09:26 Pulse 134 119 Resp 37 B/P (MAP) 162/92 (115) 161/91 Pulse Ox 100 O2 Delivery High Flow N/C O2 Flow Rate 6.00 06/07/22 00:00 Intake Total 745 ml Output Total 525 ml Balance 220 ml Weight (Pounds): 200 Weight (Ounces): 0.0 Weight (Calculated Kilograms): 90.554941 Constitutional: AAO x 3, well-developed, well-nourished Respiratory: accessory muscle use, respiratory distress, chest expansion is symmetric, chest is bilaterally symmetric, rhonchi (scattered), other (dyspneic on Bi-pap) Cardiovascular: irregularly irregular, tachycardia Gastrointestional: soft, audible bowel sounds Extremities: no lower extremity edema bilateral Neurologic/Psychiatric: other (moves all limbs equally) Skin: normal color, warm/dry; No rash on exposed areas, No ulcerations on exposed areas Results/Procedures: Labs Laboratory Tests 06/06/22 10:55: Glucometer 193H 06/06/22 15:55: Glucometer 149H 06/06/22 20:43: Glucometer 200H 06/07/22 04:13: White Blood Count 8.9, Red Blood Count 3.92L, Hemoglobin 10.6L, Hematocrit 35L, Mean Corpuscular Volume 88, Mean Corpuscular Hemoglobin 27, Mean Corpuscular Hemoglobin Concent 31L, Red Cell Distribution Width 15.9H, Platelet Count 275, Mean Platelet Volume 10.5, Immature Granulocyte % (Auto) 0, Neutrophils (%) (Auto) 94H, Lymphocytes (%) (Auto) 3L, Monocytes (%) (Auto) 3, Eosinophils (%) (Auto) 0, Basophils (%) (Auto) 0, Neutrophils # (Auto) 8.4H, Lymphocytes # (Auto) 0.2L, Monocytes # (Auto) 0.3, Eosinophils # (Auto) 0.0, Basophils # (Auto) 0.0, Immature Granulocyte # (Auto) 0.0, Sodium Level 140, Potassium Level 4.0, Chloride Level 98, Carbon Dioxide Level 33H, Anion Gap 9, Blood Urea Nitrogen 26H, Creatinine 0.61, Estimat Glomerular Filtration Rate 109, BUN/Creatinine Ratio 43, Glucose Level 189H, Calcium Level 8.6, Corrected Calcium 9.5, Phosphorus Level 3.3, Magnesium Level 2.0, Total Bilirubin 0.3, Aspartate Amino Transf (AST/SGOT) 14, Alanine Aminotransferase (ALT/SGPT) 14, Alkaline Phosphatase 48, Total Protein 5.8L, Albumin 2.9L Microbiology 06/05/22 MRSA Screen - Final, Complete MRSA not isolated A/P: Assessment: New onset a-fib with RVR - first dx on 06-05-22 at [facility] ED - converted with Amiodarone - but has converted back to a-fib with RVR this morning - Not a good candidate for Amiodarone shelter d/t severe COPD - HR not well controlled on Cardizem CD 180mg - will increase dose CAD: - Card cath of 10/22/18: Moderate coronary artery disease. There is approximately 50% mid vessel stenosis of the left anterior descending. Normal global left ventricular systolic function with ejection fraction approximately 65%. 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 Chronic diastolic CHF - Echocardiogram of 01-24-21 showed LVEF 55-60% Medication intolerance - H/o hyperkalemia when on AZ-inhibitors Hypertension and white-coat hypertension Urinary obstruction - managed by Dr Carpenter, currently on Flomax Carotid arterial disease - mild on carotid u/s of October 2019 Plan: Resp distress this morning - currently on Bi-pap - management per Medical services Acute on chr exacerbation of COPD wit pneumonia - management per Medical services A-fib with RVR - not suitable candidate for Amiodarone shelter d/t severe COPD - HR not controlled on Cardizem CD 180mg - will increase dose to 360mg daily - continue Eliquis 5mg BID for stroke prophylaxis Continue to monitor lab Replace electrolytes as indicated We have reviewed the notes from Dr. Andrade and I also discussed his case with DEANA Mcintyre MD FACP FAC CCDS Jun 07, 2022 09:33
[2022-06-07] MEDS: DOCUSATE SODIUM 100 MG (COLACE) CAP PO SCH ×2 (10:09→20:41)
[2022-06-07] MEDS: SENNOSIDES 8.6 MG (SENOKOT) TAB PO SCH ×2 (10:09→20:41)
[2022-06-07] MEDS: LORATADINE (CLARITIN) 10 MG TAB PO SCH (10:10)
[2022-06-07] MEDS: guaiFENesin SYRUP 100 MG/5 ML 10 ML (ROBITUSSIN SF) PO SCH ×3 (10:10→20:42)
[2022-06-07] MEDS: APIXABAN 5 MG (ELIQUIS) TABLET PO SCH ×2 (10:10→20:41)
[2022-06-07] MEDS: TAMSULOSIN 0.4 MG (FLOMAX) CAP PO SCH (10:10)
[2022-06-07] MEDS: ROFLUMILAST 500 MCG TAB (DALIRESP) PO SCH (10:10)
[2022-06-07 10:37] LABS: ABG BASE EXCESS 12.1 MMOL/L (-2.5-2.5); ABG OXYGEN SATURATION 98 % (94-100); ABG PCO2 63 MMHG (35-45); ABG PH 7.39 (7.37-7.43); ABG PO2 80 MMHG (79-93)
[2022-06-07 10:54] LABS: ABG TCO2 40.1 MMOL/L (21.0-31.0); ALLENS TEST YES-POS; INSPIRED O2 40% BIPAP; PATIENT TEMP 34.9; VENTILATOR NO
[2022-06-07] MEDS: MULTIVIT W/MINERALS TAB (THERAGRAN M) PO SCH (12:30)
[2022-06-07] MEDS: BACLOFEN 10 MG (LIORESAL) TAB PO SCH ×2 (12:30→17:57)
--- NOTE | 2022-06-07 13:12 | Occ Therapy Progress Note ---
Therapy Progress Note Ot order recieved 06-06-22, pt declined, OT returns 06-07-22 to evaluate, nurse request hold OT another day, pt has had busy day and nurse is trying to stabilize pt vitals TRACY HARPER OT Jun 07, 2022 13:12
--- NOTE | 2022-06-07 13:35 | CONSULTATION REPORT ---
DATE OF SERVICE: 06/05/2022 INPATIENT CONSULTATION REPORT CHIEF COMPLAINT: Atrial fibrillation with rapid ventricular response. HISTORY OF PRESENT ILLNESS: The patient is a 61-year-old gentleman with a history of end-stage severe COPD, hypertension, hyperlipidemia, GERD, hypothyroidism, diastolic heart failure, who presents for evaluation of palpitations. The patient was discharged on the same day for pneumonia on p.o. antibiotics. Once he got home, he noted that he began to experience palpitations and worsening shortness of breath. His heart rate spiked to 177 and then up into the 180s, O2 sats dropped into the mid 80s and in that setting, he became concerned and decided to come back in for evaluation. He was placed on CPAP at that time, started on a diltiazem drip with improvement in his heart rates into the 130s and subsequently transferred to the ICU for further management. He was also started on DuoNeb, Solu-Medrol. REVIEW OF SYSTEMS: All systems were reviewed and are negative except for what has been described in HPI. PAST MEDICAL HISTORY: COPD, hypertension, hyperlipidemia, GERD, hypothyroidism, diastolic heart failure, moderate nonobstructive CAD with a catheterization demonstrating 50% mid LAD lesion back in 2019. ALLERGIES: CARISOPRODOL, CODEINE, FENTANYL, TRAMADOL. FAMILY HISTORY: Significant for mother with hypertension, hyperlipidemia, glaucoma, stroke, CHF and a father with lung cancer and hyperlipidemia. SOCIAL HISTORY: The patient is a former smoker. Denies current ETOH or illicit drug use. PHYSICAL EXAMINATION: VITAL SIGNS: His vitals were T-max 36.1, heart rate is 130-170s, respiratory rate 16-20, blood pressure 100-140/60-90, satting greater than 99% on room air. GENERAL: He is in no acute distress. He does have a BiPAP in place. NECK: Soft and supple. No cervical lymphadenopathy or thyromegaly. CHEST: His lungs demonstrate decreased breath movement, rales in the bilateral lung bases, no duran wheezing or rhonchi appreciated. ABDOMEN: Soft, nontender, nondistended. No hepatosplenomegaly. HEART: Irregularly irregular and tachycardic. Normal S1, S2. No significant murmurs, gallops or rubs appreciated. EXTREMITIES: Warm and well perfused. He has no cyanosis, clubbing or edema. SKIN: No lesions, rashes or ecchymoses are noted. Labs and imaging are significant for chest x-ray, which demonstrates opacities in the bilateral lung bases. EKG, which demonstrates atrial fibrillation, atrial flutter with minimal ST depressions throughout. White blood cell count of 18.7, hematocrit of 43, platelets of 416. Sodium 138, potassium 4.0, chloride 91, bicarbonate 33, BUN 19, creatinine 0.8. Troponin I is negative. LFTs within normal limits. Catheterization back in 2019 demonstrated a 50% mid LAD. PFTs demonstrate severe COPD. ASSESSMENT AND PLAN: The patient is a 61-year-old gentleman with the above-mentioned medical problems who presents for evaluation of tachycardia and worsening shortness of breath in a setting of recent discharge for pneumonia. First issue is atrial fibrillation with rapid ventricular response. At this point in time, I recommend discontinuing his diltiazem. I did have a discussion with him about why he was on diltiazem 30 mg t.i.d. and he states that because of his end-stage COPD, he experiences tachycardia and he was placed on it to help limit the rate. He notes that this is his first time in atrial fibrillation. As such, I agree with the initiation of Lovenox 80 mg subQ b.i.d. We will then transition him to Eliquis 5 mg p.o. b.i.d. in the coming days. In addition, I recommend discontinuation of the diltiazem for now and transition to amiodarone to see if we can get him to convert back into normal sinus rhythm. We will also transition him to diltiazem extended release at 120 mg p.o. daily tomorrow. We will check a TSH and a free T4 just to assess for any potential endocrine abnormalities that may be contributing to his current presentation, although I think this is likely precipitated by his concomitant lung infection. Question of pneumonia. We will defer to hospitalist team for further treatment in this regard. I do not see the patient on antibiotics. DISPOSITION: We will continue to follow along. Thank you very much for allowing me to participate in his care. Job ID: [id number] DocumentID: [id number] Dictated Date: 06/06/2022 06:58:08 Food Service Aide Date: 06/06/2022 08:07:00 Dictated By: SOFI BRADLEY MD
[2022-06-07 14:54] VITALS: BP 114/78
--- NOTE | 2022-06-07 15:48 | Progress Note ---
Standard Progress Note Progress Notes/Assess & Plan Date Seen by a Provider: Jun 07, 2022 Time Seen by a Provider: 15:47 Progress/Assessment & Plan RN called with update, pt is full awake and breathing a little better, eating poorly but is able to drink, remains on BiPAP, will cut IVF down to 40 mL/h ITZ GUILLERMO MD Jun 07, 2022 15:48
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
[2022-06-07 19:01] VITALS: BP 119/79
[2022-06-07] MEDS: MONTELUKAST 10 MG (SINGULAIR) TAB PO SCH (20:41)
[2022-06-07] MEDS: LORazepam 0.5 MG (ATIVAN) TABLET PO PRN (20:41)
[2022-06-07 22:14] VITALS: BP 120/87
[2022-06-08] VITALS (8 sets, daily range): BP systolic 103–169; BP diastolic 50–91
[2022-06-08] MEDS: LORazepam 0.5 MG (ATIVAN) TABLET PO PRN (00:41)
[2022-06-08] MEDS: NS IV 1000 ML 1,000 ML IV SCH (00:42)
[2022-06-08] MEDS: RT-IPRATROPIUM (ATROVENT) 0.5MG/2.5ML AMP IH SCH ×6 (01:29→22:40)
[2022-06-08] MEDS: RT-ALBUTEROL SULF 2.5 MG/3 ML PRE-MIX VIAL INH SCH ×6 (01:29→22:40)
[2022-06-08] MEDS: morphine ER 30 MG (MS CONTIN) TAB PO SCH (01:52)
[2022-06-08 02:03] LABS: ABG BASE EXCESS 11.2 MMOL/L (-2.5-2.5); ABG OXYGEN SATURATION 98 % (94-100); ABG PO2 104 MMHG (79-93)
[2022-06-08 02:04] LABS: ALLENS TEST YES-POS; INSPIRED O2 50%; PATIENT TEMP 36.3; VENTILATOR NO
[2022-06-08 02:06] LABS: ABG PCO2 90 MMHG (35-45); ABG PH 7.25 (7.37-7.43); ABG TCO2 41.5 MMOL/L (21.0-31.0)
[2022-06-08] MEDS ORDERED: RT-ALBUTEROL SULF 2.5 MG/3 ML PRE-MIX VIAL ONE (02:36)
[2022-06-08] MEDS ORDERED: RT-IPRATROPIUM (ATROVENT) 0.5MG/2.5ML AMP IH ONE (02:45)
[2022-06-08] MEDS ORDERED: RT-ALBUTEROL SULF 2.5 MG/3 ML PRE-MIX VIAL INH ONE (02:45)
[2022-06-08] MEDS: LORazepam INJ 2 MG/ML (ATIVAN) VIAL IVP PRN (03:20)
[2022-06-08] MEDS: DexMEDEtomidine 250 ML DRIP 250 ML IV SCH ×2 (03:28→15:55)
[2022-06-08 04:44] LABS: ABG BASE EXCESS 7.1 MMOL/L (-2.5-2.5); ABG OXYGEN SATURATION 100 % (94-100); ABG PO2 130 MMHG (79-93); ABG TCO2 35.9 MMOL/L (21.0-31.0); ALLENS TEST YES-POS
[2022-06-08 04:45] LABS: PATIENT TEMP 36.1; VENTILATOR NO
[2022-06-08 04:46] LABS: ABG PH 7.29 (7.37-7.43)
[2022-06-08 04:47] LABS: ABG PCO2 71 MMHG (35-45); INSPIRED O2 50%
[2022-06-08 04:54] LABS: BASOPHILS % (AUTO) 0 % (0-10); EOSINOPHILS % (AUTO) 0 % (0-10); HEMATOCRIT 37 % (40-54); HEMOGLOBIN 11.2 g/dL (13.3-17.7); LYMPHOCYTES # (AUTO) 0.2 10^3/uL (1.0-4.0); LYMPHOCYTES % (AUTO) 1 % (12-44); MEAN CORPUSCULAR HEMOGLOBIN 27 pg (25-34); MEAN CORPUSCULAR HGB CONC 30 g/dL (32-36); MEAN CORPUSCULAR VOLUME 91 fL (80-99); MEAN PLATELET VOLUME 9.9 fL (9.0-12.2); MONOCYTES # (AUTO) 0.3 10^3/uL (0.0-1.0); MONOCYTES % (AUTO) 2 % (0-12); NEUTROPHILS # (AUTO) 12.8 10^3/uL (1.8-7.8); NEUTROPHILS % (AUTO) 96 % (42-75); PLATELET COUNT 265 10^3/uL (130-400); WHITE BLOOD COUNT 13.3 10^3/uL (4.3-11.0)
[2022-06-08 05:14] LABS: ALBUMIN 3.4 GM/DL (3.2-4.5); POTASSIUM 4.4 MMOL/L (3.6-5.0)
[2022-06-08 05:15] LABS: CALCIUM 9.1 MG/DL (8.5-10.1)
[2022-06-08 05:16] LABS: TOTAL PROTEIN 6.4 GM/DL (6.4-8.2)
[2022-06-08] MEDS: POTASSIUM CL 10MEQ/50ML IVPB 50 ML IV SCH (05:16)
[2022-06-08] MEDS: KCL 20 MEQ TAB (K-DUR) PO SCH (05:16)
[2022-06-08 05:18] LABS: BILIRUBIN,TOTAL 0.4 MG/DL (0.1-1.0)
[2022-06-08 05:19] LABS: PHOSPHORUS 5.7 MG/DL (2.3-4.7)
[2022-06-08 05:20] LABS: CREATININE SERUM 0.9 MG/DL (0.60-1.30)
[2022-06-08 05:23] LABS: MAGNESIUM 2.1 MG/DL (1.6-2.4)
[2022-06-08] MEDS: MAGNESIUM 1 GM/100 ML IVPB 100 ML IV SCH (05:32)
[2022-06-08] MEDS: inSUlin ASPART (NovoLOG) 1 UNIT/0.01 ML (CHARGE PER UNIT) SC SCH ×4 (06:15→23:36)
[2022-06-08] MEDS: methylPREDNISolone 125 MG (Solu-MEDROL) VIAL IVP SCH ×4 (06:19→23:35)
[2022-06-08] MEDS: PANTOPRAZOLE 20 MG TABLET (PROTONIX) PO SCH (06:21)
[2022-06-08 08:20] LABS: ABG BASE EXCESS 7.4 MMOL/L (-2.5-2.5); ABG OXYGEN SATURATION 99 % (94-100); ABG PCO2 58 MMHG (35-45); ABG PH 7.36 (7.37-7.43); ABG PO2 108 MMHG (79-93); ABG TCO2 34.8 MMOL/L (21.0-31.0)
[2022-06-08 08:21] LABS: ALLENS TEST YES-POS; INSPIRED O2 45%; PATIENT TEMP 36; VENTILATOR NO
--- NOTE | 2022-06-08 08:41 | Diagnostic Imaging Report ---
Indication: Shortness of breath Portable chest 5:16 AM There are emphysematous changes in the lungs. There are some patchy alveolar nodular infiltrate in the right midlung. IMPRESSION: COPD. Questionable developing right perihilar infiltrate. Dictated by: Dictated on workstation # [id number]
[2022-06-08] MEDS: DOCUSATE SODIUM 100 MG (COLACE) CAP PO SCH ×2 (09:51→21:59)
[2022-06-08] MEDS: guaiFENesin SYRUP 100 MG/5 ML 10 ML (ROBITUSSIN SF) PO SCH ×4 (09:51→20:03)
[2022-06-08] MEDS: ROFLUMILAST 500 MCG TAB (DALIRESP) PO SCH (09:51)
[2022-06-08] MEDS: APIXABAN 5 MG (ELIQUIS) TABLET PO SCH ×2 (09:52→20:01)
[2022-06-08] MEDS: SENNOSIDES 8.6 MG (SENOKOT) TAB PO SCH ×2 (09:52→20:01)
[2022-06-08] MEDS: LORATADINE (CLARITIN) 10 MG TAB PO SCH (09:52)
[2022-06-08] MEDS: TAMSULOSIN 0.4 MG (FLOMAX) CAP PO SCH (09:52)
--- NOTE | 2022-06-08 10:03 | Physical Therapy Progress Note ---
Therapy Progress Note Patient on Hold per RN due to increased O2 demand. PT will continue to monitor patient status and resume when medically stable. GARFIELD SAUNDERS PT Jun 08, 2022 10:03
--- NOTE | 2022-06-08 10:13 | Progress Note - Cardiology ---
Cardiology SOAP Progress Note Subjective: In bed on the Bi-pap Sedation with precedex Objective: I&O/Vital Signs 06/08/22 06/08/22 06/08/22 06/08/22 22:31 22:40 23:00 23:35 Temp 37.2 Pulse 80 79 86 Resp 19 19 B/P (MAP) 110/51 105/58 (74) Pulse Ox 95 98 O2 Delivery Mechanical Ventilator O2 Flow Rate 50.00 FiO2 50 06/08/22 06/09/22 06/09/22 06/09/22 23:59 00:00 01:00 01:00 Pulse 81 88 82 Resp 17 20 B/P (MAP) 115/66 (82) 114/64 (81) Pulse Ox 97 99 98 O2 Delivery Mechanical Ventilator Mechanical Ventilator Mechanical Ventilator O2 Flow Rate 50.00 50.00 FiO2 50 06/09/22 06/09/22 06/09/22 06/09/22 01:13 02:00 02:56 03:00 Pulse 84 84 84 82 Resp 19 21 B/P (MAP) 120/58 114/65 (81) 110/64 (79) Pulse Ox 97 97 97 O2 Delivery Mechanical Ventilator Mechanical Ventilator O2 Flow Rate 50.00 50.00 FiO2 50 06/09/22 06/09/22 06/09/22 06/09/22 04:00 04:00 04:00 04:38 Temp 37.2 Pulse 87 Resp 25 B/P (MAP) 116/65 (82) Pulse Ox 97 97 O2 Delivery Mechanical Ventilator Mechanical Ventilator Mechanical Ventilator O2 Flow Rate 50.00 35.00 FiO2 50 06/09/22 06/09/22 06/09/22 06/09/22 04:41 04:50 04:56 05:00 Pulse 92 86 87 Resp 26 20 B/P (MAP) 104/52 116/65 (82) Pulse Ox 91 94 O2 Delivery Mechanical Ventilator O2 Flow Rate 35.00 FiO2 35 06/09/22 06/09/22 06/09/22 06/09/22 05:18 06:00 07:00 07:00 Pulse 86 85 87 89 Resp 20 21 B/P (MAP) 110/55 108/69 (82) 120/79 (99) Pulse Ox 92 91 O2 Delivery Mechanical Ventilator Mechanical Ventilator O2 Flow Rate 35.00 35.00 06/09/22 06/09/22 06/09/2206/09/23 07:14 07:30 07:47 08:00 Temp 36.2 36.3 Pulse 92 Resp 20 Pulse Ox 91 96 O2 Delivery Mechanical Ventilator FiO2 35 30 06/09/22 06/09/22 06/09/22 08:00 08:04 09:00 Pulse 92 93 82 Resp 15 15 B/P (MAP) 114/77 (96) 110/76 (95) Pulse Ox 91 94 O2 Delivery Mechanical Ventilator Mechanical Ventilator O2 Flow Rate 35.00 35.00 06/09/22 00:00 Intake Total 470 ml Output Total 601 ml Balance -131 ml Weight (Pounds): 200 Weight (Ounces): 0.0 Weight (Calculated Kilograms): 90.694303 Constitutional: well-developed, well-nourished, other (sedated at this time on Bi-pap) Respiratory: No accessory muscle use, No respiratory distress; chest expansion is symmetric, chest is bilaterally symmetric, rhonchi (scattered), other (Currently sedated on Bi-pap) Cardiovascular: irregularly irregular, tachycardia Gastrointestional: soft, audible bowel sounds Extremities: no lower extremity edema bilateral Neurologic/Psychiatric: other (moves all limbs equally) Skin: normal color, warm/dry; No rash on exposed areas, No ulcerations on exposed areas Results/Procedures: Labs Laboratory Tests 06/08/22 14:06: Glucometer 212H 06/08/22 17:54: Glucometer 212H 06/08/22 23:31: Glucometer 234H 06/09/22 03:20: Blood Gas Puncture Site LEFT ART, Blood Gas Patient Temperature 37.4, Arterial Blood pH 7.38, Arterial Blood Partial Pressure CO2 62H, Arterial Blood Partial Pressure O2 130H, Arterial Blood HCO3 36H, Arterial Blood Total CO2 37.5H, Arterial Blood Oxygen Saturation 100, Arterial Blood Base Excess 10.3H, Jeff Test YES-POS, Blood Gas Ventilator Setting NO, Blood Gas Inspired Oxygen 50% 06/09/22 04:10: White Blood Count 8.7, Red Blood Count 3.78L, Hemoglobin 10.4L, Hematocrit 33L, Mean Corpuscular Volume 88, Mean Corpuscular Hemoglobin 28, Mean Corpuscular Hemoglobin Concent 31L, Red Cell Distribution Width 16.7H, Platelet Count 248, Mean Platelet Volume 10.4, Immature Granulocyte % (Auto) 1, Neutrophils (%) (Auto) 95H, Lymphocytes (%) (Auto) 2L, Monocytes (%) (Auto) 3, Eosinophils (%) (Auto) 0, Basophils (%) (Auto) 0, Neutrophils # (Auto) 8.3H, Lymphocytes # (Auto) 0.2L, Monocytes # (Auto) 0.3, Eosinophils # (Auto) 0.0, Basophils # (Auto) 0.0, Immature Granulocyte # (Auto) 0.1, Sodium Level 142, Potassium Level 3.9, Chloride Level 102, Carbon Dioxide Level 29, Anion Gap 11, Blood Urea Nitrogen 44H, Creatinine 0.71, Estimat Glomerular Filtration Rate 104, BUN/Creatinine Ratio 62, Glucose Level 240H, Calcium Level 8.4L, Corrected Calcium 9.3, Phosphorus Level 2.4, Magnesium Level 2.0, Total Bilirubin 0.3, Aspartate Amino Transf (AST/SGOT) 16, Alanine Aminotransferase (ALT/SGPT) 22, Alkaline Phosphatase 52, Total Protein 5.5L, Albumin 2.9L, Triglycerides Level 176H Microbiology 06/08/22 Gram Stain - Final, Resulted 06/08/22 Sputum Culture, Resulted Pending 06/05/22 Urine Culture - Final, Complete NO GROWTH A/P: Assessment: New onset a-fib with RVR - first dx on 06-05-22 at [facility] ED - converted with Amiodarone - currently in a-fib with controlled rate - Not a good candidate for Amiodarone [place] d/t severe COPD - HR controlled CAD: - Card cath of 10/22/18: Moderate coronary artery disease. There is approximately 50% mid vessel stenosis of the left anterior descending. Normal global left ventricular systolic function with ejection fraction approximately 65%. 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 Chronic diastolic CHF - Echocardiogram of 01-24-21 showed LVEF 55-60% Medication intolerance - H/o hyperkalemia when on AZ-inhibitors Hypertension and white-coat hypertension Urinary obstruction - managed by Dr Carpenter, currently on Flomax Carotid arterial disease - mild on carotid u/s of October 2019 Plan: Acute on chronic resp failure - requiring Bi-pap - currently on light sedation in order to tolerate Acute on chr exacerbation of COPD wit pneumonia - management per Medical services A-fib with RVR - not suitable candidate for Amiodarone terminal gauger d/t severe COPD - HR improved - continue current dose of Cardizem - continue Eliquis 5mg BID for stroke prophylaxis Continue to monitor lab Replace electrolytes as indicated GARY JAMES Jun 08, 2022 10:13
[2022-06-08] MEDS: UMECLIDINIUM BROMIDE (INCRUSE ELLIPTA) 7'S IH SCH (10:33)
[2022-06-08] MEDS: RT--FLUTICASONE/SALMETEROL 232-14 (AIRDUO RespiCLICK) IH SCH ×2 (10:33→22:39)
[2022-06-08] MEDS ORDERED: fentaNYL INJ 100 MCG/2 ML AMP ONE (10:55)
[2022-06-08] MEDS ORDERED: fentaNYL INJ 100 MCG/2 ML AMP IVP ONE (11:00)
[2022-06-08] MEDS ORDERED: methylPREDNISolone 125 MG (Solu-MEDROL) VIAL IVP ONE (11:00)
--- NOTE | 2022-06-08 11:00 | Tele-ICU Progress Note ---
Subjective Date Seen by a Provider: Jun 08, 2022 Time Seen by a Provider: 10:59 Subjective/Events-last exam (Tele-ICU Physician , Progress Note ) Service provided via interactive audio and video telecommunications E-CARE system to a patient admitted to ICU bed in [facility]. Patient is seen today due to persistent need of ICU care Available chart/ vitals / labs / Images reviewed Video assessment done using teleICU camera, rest of exam as per RN Discussed with RN Events overnight : Afebrile hemodynamically stable Respiratory - 10 L I/O = not recorded , samuel placed Drips: ns 40 Pressors- no Consultants: Hospital course: (06/01) 61M admitted for PNA/ AECOPD Placed on Bipap in ER. 06/02 - 10 L o2 - d/c 06/05 (06/05)Returns with acute COPD exacerbation, rapid afib. Bipap and cardizem 06/06 - amio gtt , 6 L 06/07 - moved to bipap 27 h , started precedex 0.7 + ativan 06/08 - bipap 27 h 18/02 45 %--80 % rr 17 tv 1200 MV 20 A/P Acute on chronic ( hypoxic and hypercapneic ) resp failure - NIPPV prn bipap 27 h 18/02 45 % rr 17 tv 1200 MV 20 - worsenign Fio2 with increasing fio2 to 80 % precedex 0.7 ( SUSPECT RESP ACIDOSIS WITH ATIVAN - WILL TRY TO AVOId ) - steroids iv - ADDITIONAL dose 125 06/08, , ABX , nebs - cont precedex 1.5 and fentanyl prn AECOPD ( with advanced severe COPD at baseline , O2 dependent 2 L O2 ) -06/07 - moved to bipap 27 h , started precedex 0.7 + ativan - IV steroids ( as per chart was d/c on prednisone 04/17/22 - nebs Leucocytosis with suspected PNA RLL ( negative for COVID influenza) - with recetly [place] for PNA -06/08 - seems worsenign infiltrate sllightly on right a FIB RVR - amio gtt OFF , cardisem po -AC eliquis Echo on 06/13/18: LVEF 55-60%, PASP 30 mmHg - monitor fluid status Anxiety -precedex Anemia - stable Nutrition - on bipap - to readress if can eat Lines : periph , (Central Line Necessity Reviewed) Samuel: 06/08 OG: Nutrition: as toleraes po Analgesia: Anxiety/ delirium VTE Prophylaxis: eliquis Stress Ulcer Prophylaxis: ppi Plans in collaboration with bedside consultants and IM MDs. Discussed with RN to reach out if any questions or concerns A total of 40 minutes of critical care time was devoted to this patient today, required to treat and/or prevent further deterioration of critical care condition ( as above ) . I am remotely monitoring this patient from another state. I am unable to do the bedside exam, and history/physical and pertinent information is taken from other notes in the computer and bedside staff. . Sepsis Event Evaluation Height, Weight, BMI Height: 5'8.00" Weight: 200lbs. 0.0oz. 90.875745du; 27.59 BMI Method:Stated Exam Exam Patient acknowledged, consented, and participated in this virtual visit which was conducted using real time audio/video Vital Signs Date Time Temp Pulse Resp B/P (MAP) Pulse Ox O2 Delivery O2 Flow Rate FiO2 06/08/22 10:34 113 28 92 40.00 06/08/22 10:04 95 NIV Bilevel 40.00 06/08/22 10:00 91 152/91 (111) 97 NIV Bilevel 45.00 06/08/22 09:00 73 120/77 (91) 98 NIV Bilevel 45.00 06/08/22 08:00 36.0 NIV Bilevel 45.00 06/08/22 08:00 75 112/73 (86) 100 NIV Bilevel 45.00 06/08/22 07:28 75 112/73 06/08/22 07:05 76 17 99 45.00 06/08/22 07:00 77 06/08/22 07:00 76 106/73 (84) 87 NIV Bilevel 50.00 06/08/22 06:00 83 107/67 (80) 99 NIV Bilevel 50.00 06/08/22 05:05 NIV Bilevel 50.00 06/08/22 05:00 94 111/68 (82) 99 NIV Bilevel 60.00 06/08/22 04:00 81 107/80 (89) 98 NIV Bilevel 60.00 06/08/22 04:00 95 NIV Bilevel 50 06/08/22 03:28 135 170/98 06/08/22 03:25 36.3 NIV Bilevel 60.00 06/08/22 03:00 81 170/98 (122) 97 NIV Bilevel 50.00 06/08/22 02:49 80 18 98 50.00 06/08/22 02:00 99 104/89 (94) 93 NIV Bilevel 50.00 06/08/22 01:30 76 26 96 40.00 06/08/22 01:00 82 06/08/22 01:00 90 127/95 (106) 90 NIV Bilevel 50.00 06/08/22 01:00 NIV Bilevel 50.00 06/08/22 00:00 71 18 168/96 (120) 95 NIV Bilevel 40.00 06/08/22 00:00 36.0 06/07/22 23:59 94 NIV Bilevel 40 06/07/22 23:00 69 17 115/104 (108) 94 NIV Bilevel 40.00 06/07/22 22:14 86 17 100 40.00 06/07/22 22:00 83 18 118/87 (97) 92 NIV Bilevel 40.00 06/07/22 21:00 89 18 115/89 (98) 95 NIV Bilevel 40.00 06/07/22 20:00 86 127/84 (98) 94 NIV Bilevel 40.00 06/07/22 20:00 96 NIV Bilevel 40 06/07/22 19:46 36.1 06/07/22 19:01 68 18 100 40.00 06/07/22 19:00 NIV Bilevel 40.00 06/07/22 19:00 71 26 166/87 (113) 94 NIV Bilevel 40.00 06/07/22 19:00 72 06/07/22 18:00 84 26 127/81 (96) 99 NIV Bilevel 45.00 06/07/22 17:00 75 22 92/63 (73) 99 NIV Bilevel 45.00 06/07/22 16:57 36.1 06/07/22 16:00 84 30 121/75 (90) 99 NIV Bilevel 45.00 06/07/22 16:00 98 NIV Bilevel 40 06/07/22 15:00 63 15 108/80 (89) 98 NIV Bilevel 45.00 06/07/22 14:54 65 20 99 40.00 06/07/22 14:00 58 15 120/69 (86) 97 NIV Bilevel 45.00 06/07/22 13:00 73 22 116/78 (91) 97 NIV Bilevel 45.00 06/07/22 12:33 71 06/07/22 12:00 93 26 112/87 (95) 100 NIV CPAP 45.00 06/07/22 12:00 37.4 06/07/22 12:00 98 NIV Bilevel 45 06/07/22 11:00 120 40 152/85 (107) 100 High Flow N/C 6.00 I & O 06/08/22 07:00 Intake Total 1925 ml Output Total 500 ml Balance 1425 ml Height & Weight Height: 5'8.00" Weight: 200lbs. 0.0oz. 90.761940vf; 27.59 BMI Method:Stated General Appearance: Moderate Distress, Thin HEENT: PERRL/EOMI Neck: Non Tender, Supple Respiratory: Accessory Muscle Use, Decreased Breath Sounds, Respiratory Dist ress, Wheezing Cardiovascular: No Murmur, Tachycardia Capillary Refill: Less Than 3 Seconds Peripheral Pulses: 2+ Radial Pulses (R), 2+ Radial Pulses (L) Gastrointestinal: normal bowel sounds, non tender, soft Extremity: No Calf Tenderness, No Pedal Edema Neurologic/Psychiatric: Alert Skin: Normal Color, Warm/Dry Results Lab Laboratory Tests 06/07/22 04:13 06/08/22 04:46 Assessment/Plan Assessment/Plan 1 NATHEN DAMIAN MD Jun 08, 2022 10:59
[2022-06-08] MEDS ORDERED: PROPOFOL DRIP (ICU) 100 ML IV ONE ×2 (11:09→18:06)
[2022-06-08] MEDS: PROPOFOL DRIP (ICU) 100 ML IV SCH ×2 (11:30→18:31)
--- NOTE | 2022-06-08 11:46 | Anesthesia-Procedure Note ---
Procedures/Interventions Procedure Start/Stop/Diagnosis Date of Procedure: Jun 08, 2022 Start Time: 11:10 Referring Physician: Saman Preprocedural Diagnosis: Respiratory Failure Brief History Called by roundhouse firer/fireman for intubation and A-Line request per Dr. Davison for acute respiratory failure. On arrival pt opened eyes to command but was tachycardic and dyspneic on bipap. Consent obtained from . Etomidate 14mg and Anectine 120mg for RSI. Ventilated with BVM 100%. VL with ICU Glidescope grade 1 view with #8.0 ETT passing easily and secured by RT aprox 23cm at lip with tube nielsen. BS coarse b/l, +ETCO2 color change with EZcap. After intubation was completed, left wrist was prepped with chloraprep and #20 g Arrow A-line placed x2 attempt. Good blood return and waveform on monitor. Catheter secured with sterile op site and secured with tape per SANITATION ASSOCIATE. Report to RN. Stop Time: 11:28 Postprocedural Diagnosis: Respiratory Failure Intubation RSI: Yes 100% pre-Ox, [id number]: Yes Intubation Method: orotracheal Videoscope used: Yes Medications: Etomidate Mask Ventilation: positive Positive End Tide CO2: Yes Breath Sounds after Intubation: bilateral-equal Intubated with ease: Yes Intubation Complications: no complications Post Intubation Xray-done: Yes Arterial Line Arterial Line Catheter: 20G Type: Radial Location: Left Procedure: prepped, draped in sterile fashion, good wave-form was obtained, patient tolerated procedure well, no immediate complications, post procedure area cleaned, post procedure dressing applied BONI TERRAZAS CRNA Jun 08, 2022 11:46
[2022-06-08] MEDS: BACLOFEN 10 MG (LIORESAL) TAB PO SCH ×2 (12:00→17:47)
[2022-06-08] MEDS: MULTIVIT W/MINERALS TAB (THERAGRAN M) PO SCH (12:00)
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
[2022-06-08] MEDS ORDERED: SUCCINYLCHOLINE INJ 20 MG/1 ML 10 ML VIAL INJ ONE (13:48)
[2022-06-08] MEDS ORDERED: ETOMIDATE IV SOLN 20 MG/10 ML VIAL IV ONE (13:48)
--- NOTE | 2022-06-08 14:01 | Occ Therapy Progress Note ---
Therapy Progress Note OT has received additional order for patient 06/08/22. Patient intubated, OT will monitor for extubation and appropriateness to begin therapy TRACY HARPER OT Jun 08, 2022 14:01
--- NOTE | 2022-06-08 14:02 | Physical Therapy Progress Note ---
Therapy Progress Note Patient sedated and intubated on this date. PT will monitor patient status. GARFIELD SAUNDERS PT Jun 08, 2022 14:02
[2022-06-08] MEDS ORDERED: morphine IMMEDIATE RELEASE 15 MG TABLET PO SCH (15:00)
--- NOTE | 2022-06-08 17:33 | Progress Note - Cardiology ---
Cardiology SOAP Progress Note Subjective: Worsening resp status leading to mech vent. Unresponsive at time of exam (on vent) Objective: I&O/Vital Signs 06/08/22 06/08/22 06/08/22 06/08/22 06:00 07:00 07:00 07:05 Pulse 83 76 77 76 Resp 17 B/P (MAP) 107/67 (80) 106/73 (84) Pulse Ox 99 87 99 O2 Delivery NIV Bilevel NIV Bilevel O2 Flow Rate 50.00 50.00 45.00 06/08/22 06/08/22 06/08/22 06/08/22 07:28 08:00 08:00 08:00 Temp 36.0 Pulse 75 75 B/P (MAP) 112/73 112/73 (86) Pulse Ox 95 100 O2 Delivery NIV Bilevel NIV Bilevel NIV Bilevel O2 Flow Rate 45.00 45.00 FiO2 45 06/08/22 06/08/22 06/08/22 06/08/22 09:00 10:00 10:04 10:34 Pulse 73 91 113 Resp 28 B/P (MAP) 120/77 (91) 152/91 (111) Pulse Ox 98 97 95 92 O2 Delivery NIV Bilevel NIV Bilevel NIV Bilevel O2 Flow Rate 45.00 45.00 40.00 40.00 06/08/22 06/08/22 06/08/22 06/08/22 11:00 11:51 12:00 12:00 Pulse 122 77 79 Resp 20 B/P (MAP) 150/71 (97) 104/70 (81) Pulse Ox 97 99 98 95 O2 Delivery NIV Bilevel Mechanical Ventilator Mechanical Ventilator O2 Flow Rate 40.00 70.00 FiO2 80 100 06/08/22 06/08/22 06/08/22 06/08/22 12:40 13:00 14:00 14:25 Pulse 68 79 62 65 Resp 20 B/P (MAP) 117/75 (89) 110/57 (74) Pulse Ox 98 98 98 O2 Delivery Mechanical Ventilator Mechanical Ventilator O2 Flow Rate 70.00 70.00 FiO2 50 06/08/22 06/08/22 06/08/22 06/08/22 14:35 15:00 15:55 16:00 Temp 36.3 Pulse 69 62 B/P (MAP) 121/71 (88) 125/59 Pulse Ox 97 O2 Delivery Mechanical Ventilator Mechanical Ventilator O2 Flow Rate 50.00 50.00 06/08/22 06/08/22 16:00 17:00 Pulse 62 61 B/P (MAP) 109/70 (83) 113/67 (82) Pulse Ox 95 100 O2 Delivery Mechanical Ventilator Mechanical Ventilator O2 Flow Rate 50.00 50.00 06/08/22 00:00 Intake Total 500 ml Output Total 200 ml Balance 300 ml Weight (Pounds): 200 Weight (Ounces): 0.0 Weight (Calculated Kilograms): 90.216128 Constitutional: well-developed, well-nourished, other (sedated at this time on Bi-pap) Respiratory: No accessory muscle use, No respiratory distress; chest expansion is symmetric, chest is bilaterally symmetric, rhonchi (scattered), other (Currently sedated on Bi-pap) Cardiovascular: irregularly irregular, tachycardia Gastrointestional: soft, audible bowel sounds Extremities: no lower extremity edema bilateral Neurologic/Psychiatric: other (moves all limbs equally) Skin: normal color, warm/dry; No rash on exposed areas, No ulcerations on exposed areas Results/Procedures: Labs Laboratory Tests 06/07/22 21:38: Glucometer 158H 06/08/22 02:00: Blood Gas Puncture Site R RAD, Blood Gas Patient Temperature 36.3, Arterial Blood pH 7.25*L, Arterial Blood Partial Pressure CO2 90*H, Arterial Blood Partial Pressure O2 104H, Arterial Blood HCO3 39H, Arterial Blood Total CO2 41.5*H, Arterial Blood Oxygen Saturation 98, Arterial Blood Base Excess 11.2H, Jeff Test YES-POS, Blood Gas Ventilator Setting NO, Blood Gas Inspired Oxygen 50% 06/08/22 04:25: Blood Gas Puncture Site R RAD, Blood Gas Patient Temperature 36.1, Arterial Blood pH 7.29*L, Arterial Blood Partial Pressure CO2 71*H, Arterial Blood Partial Pressure O2 130H, Arterial Blood HCO3 34H, Arterial Blood Total CO2 35.9H, Arterial Blood Oxygen Saturation 100, Arterial Blood Base Excess 7.1H, Jeff Test YES-POS, Blood Gas Ventilator Setting NO, Blood Gas Inspired Oxygen 50% 06/08/22 04:46: White Blood Count 13.3H, Red Blood Count 4.10L, Hemoglobin 11.2L, Hematocrit 37L , Mean Corpuscular Volume 91, Mean Corpuscular Hemoglobin 27, Mean Corpuscular Hemoglobin Concent 30L, Red Cell Distribution Width 16.2H, Platelet Count 265, Mean Platelet Volume 9.9, Immature Granulocyte % (Auto) 1, Neutrophils (%) (Auto) 96H, Lymphocytes (%) (Auto) 1L, Monocytes (%) (Auto) 2, Eosinophils (%) (Auto) 0, Basophils (%) (Auto) 0, Neutrophils # (Auto) 12.8H, Lymphocytes # (Auto) 0.2L, Monocytes # (Auto) 0.3, Eosinophils # (Auto) 0.0, Basophils # (Auto) 0.0, Immature Granulocyte # (Auto) 0.1, Sodium Level 141, Potassium Level 4.4, Chloride Level 99, Carbon Dioxide Level 27, Anion Gap 15H, Blood Urea Nitrogen 45H, Creatinine 0.90, Estimat Glomerular Filtration Rate 97, BUN/Creatinine Ratio 50, Glucose Level 214H, Calcium Level 9.1, Corrected Calcium 9.6, Phosphorus Level 5.7H, Magnesium Level 2.1, Total Bilirubin 0.4, Aspartate Amino Transf (AST/SGOT) 18, Alanine Aminotransferase (ALT/SGPT) 22, Alkaline Phosphatase 63, Total Protein 6.4, Albumin 3.4 06/08/22 08:04: Blood Gas Puncture Site RRAD, Blood Gas Patient Temperature 36, Arterial Blood pH 7.36L, Arterial Blood Partial Pressure CO2 58H, Arterial Blood Partial Pressure O2 108H, Arterial Blood HCO3 33H, Arterial Blood Total CO2 34.8H, Arterial Blood Oxygen Saturation 99, Arterial Blood Base Excess 7.4H, Jeff Test YES-POS, Blood Gas Ventilator Setting NO, Blood Gas Inspired Oxygen 45% 06/08/22 14:06: Glucometer 212H Microbiology 06/05/22 MRSA Screen - Final, Complete MRSA not isolated 06/05/22 Urine Culture - Final, Complete NO GROWTH Laboratory Tests 06/07/22 04:13 06/08/22 04:46 A/P: Assessment: New onset a-fib with RVR - first dx on 06-05-22 at [facility] ED - converted with amiodarone - Not a good candidate for amiodarone senior living d/t severe COPD - Dilt for vent rate control CAD: - Card cath of 10/22/18: Moderate coronary artery disease. There is approximately 50% mid vessel stenosis of the left anterior descending. Normal global left ventricular systolic function with ejection fraction approximately 65%. 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
[2022-06-08] MEDS: morphine IMMEDIATE RELEASE 15 MG TABLET PO SCH ×2 (17:47→23:35)
[2022-06-08] MEDS: MONTELUKAST 10 MG (SINGULAIR) TAB PO SCH (20:01)
[2022-06-08] MEDS: fentaNYL INJ 100 MCG/2 ML AMP IVP PRN (20:51)
[2022-06-09] VITALS (8 sets, daily range): BP systolic 97–145; BP diastolic 40–64
[2022-06-09] MEDS: PROPOFOL DRIP (ICU) 100 ML IV SCH ×4 (01:13→19:39)
[2022-06-09] MEDS: NS IV 1000 ML 1,000 ML IV SCH (01:14)
[2022-06-09] MEDS: RT-ALBUTEROL SULF 2.5 MG/3 ML PRE-MIX VIAL INH SCH ×6 (02:56→22:35)
[2022-06-09] MEDS: RT-IPRATROPIUM (ATROVENT) 0.5MG/2.5ML AMP IH SCH ×6 (02:56→22:35)
[2022-06-09 03:28] LABS: ABG BASE EXCESS 10.3 MMOL/L (-2.5-2.5); ABG OXYGEN SATURATION 100 % (94-100); ABG PCO2 62 MMHG (35-45); ABG PH 7.38 (7.37-7.43); ABG PO2 130 MMHG (79-93); ABG TCO2 37.5 MMOL/L (21.0-31.0)
[2022-06-09 03:29] LABS: ALLENS TEST YES-POS; INSPIRED O2 50%; PATIENT TEMP 37.4; VENTILATOR NO
[2022-06-09 04:36] LABS: BASOPHILS % (AUTO) 0 % (0-10); EOSINOPHILS % (AUTO) 0 % (0-10); HEMATOCRIT 33 % (40-54); HEMOGLOBIN 10.4 g/dL (13.3-17.7); LYMPHOCYTES # (AUTO) 0.2 10^3/uL (1.0-4.0); LYMPHOCYTES % (AUTO) 2 % (12-44); MEAN CORPUSCULAR HEMOGLOBIN 28 pg (25-34); MEAN CORPUSCULAR HGB CONC 31 g/dL (32-36); MEAN CORPUSCULAR VOLUME 88 fL (80-99); MEAN PLATELET VOLUME 10.4 fL (9.0-12.2); MONOCYTES # (AUTO) 0.3 10^3/uL (0.0-1.0); MONOCYTES % (AUTO) 3 % (0-12); NEUTROPHILS # (AUTO) 8.3 10^3/uL (1.8-7.8); NEUTROPHILS % (AUTO) 95 % (42-75); PLATELET COUNT 248 10^3/uL (130-400); WHITE BLOOD COUNT 8.7 10^3/uL (4.3-11.0)
[2022-06-09 04:51] LABS: ALBUMIN 2.9 GM/DL (3.2-4.5); POTASSIUM 3.9 MMOL/L (3.6-5.0)
[2022-06-09 04:53] LABS: CALCIUM 8.4 MG/DL (8.5-10.1)
[2022-06-09 04:54] LABS: TOTAL PROTEIN 5.5 GM/DL (6.4-8.2)
[2022-06-09] MEDS: fentaNYL INJ 100 MCG/2 ML AMP IVP PRN ×4 (04:54→17:37)
[2022-06-09 04:55] LABS: BILIRUBIN,TOTAL 0.3 MG/DL (0.1-1.0)
[2022-06-09] MEDS: DexMEDEtomidine 250 ML DRIP 250 ML IV SCH ×2 (04:56→17:02)
[2022-06-09 04:57] LABS: PHOSPHORUS 2.4 MG/DL (2.3-4.7)
[2022-06-09 04:58] LABS: CREATININE SERUM 0.71 MG/DL (0.60-1.30)
[2022-06-09] MEDS: POTASSIUM CL 10MEQ/50ML IVPB 50 ML IV SCH ×3 (05:23→06:35)
[2022-06-09] MEDS: KCL 20 MEQ TAB (K-DUR) PO SCH (05:24)
[2022-06-09] MEDS: MAGNESIUM 1 GM/100 ML IVPB 100 ML IV SCH (05:24)
[2022-06-09] MEDS: inSUlin ASPART (NovoLOG) 1 UNIT/0.01 ML (CHARGE PER UNIT) SC SCH ×3 (05:44→19:03)
[2022-06-09] MEDS: methylPREDNISolone 125 MG (Solu-MEDROL) VIAL IVP SCH ×3 (05:44→17:49)
[2022-06-09] MEDS: morphine IMMEDIATE RELEASE 15 MG TABLET PO SCH ×3 (05:44→17:49)
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
--- NOTE | 2022-06-09 06:38 | Occ Therapy Progress Note ---
Therapy Progress Note Pt is currently intubated and will need new orders when extubated until then OT to continue to monitor pt's status then will initiate treatment when new orders are received, pt is medically stable and able to participate in skilled therapy. BILL MATOS Jun 09, 2022 06:38
--- NOTE | 2022-06-09 07:16 | Physical Therapy Progress Note ---
Therapy Progress Note Pt is currently intubated and will need new orders when extubated until then PT to continue to monitor pt's status then will initiate treatment when new orders are received, pt is medically stable and able to participate in skilled therapy. GARFIELD SAUNDERS PT Jun 09, 2022 07:16
[2022-06-09] MEDS: TAMSULOSIN 0.4 MG (FLOMAX) CAP PO SCH (07:45)
[2022-06-09] MEDS ORDERED: MIDAZOLAM DRIP PRE-MIX 100 ML IV SCH (09:45)
[2022-06-09] MEDS ORDERED: guaiFENesin SYRUP 100 MG/5 ML 10 ML (ROBITUSSIN SF) PO PRN (09:45)
[2022-06-09] MEDS: ROFLUMILAST 500 MCG TAB (DALIRESP) PO SCH (09:51)
[2022-06-09] MEDS: PANTOPRAZOLE 40 MG (PROTONIX) VIAL IV SCH (09:51)
[2022-06-09] MEDS: APIXABAN 5 MG (ELIQUIS) TABLET PO SCH ×2 (09:51→21:26)
[2022-06-09] MEDS: SENNOSIDES 8.6 MG (SENOKOT) TAB PO SCH ×2 (09:52→21:26)
[2022-06-09] MEDS: LORATADINE (CLARITIN) 10 MG TAB PO SCH (09:52)
--- NOTE | 2022-06-09 09:53 | Tele-ICU Progress Note ---
Subjective Date Seen by a Provider: Jun 09, 2022 Time Seen by a Provider: 09:48 Subjective/Events-last exam (Tele-ICU Physician , Progress Note ) Service provided via interactive audio and video telecommunications E-CARE system to a patient admitted to ICU bed in [facility]. Patient is seen today due to persistent need of ICU care Available chart/ vitals / labs / Images reviewed Video assessment done using teleICU camera, rest of exam as per RN Discussed with RN Events overnight : Afebrile hemodynamically stable Respiratory - 10 L I/O = not recorded , samuel placed VENT SETTINGS and ABG reviewed NOT CANDIDATE for SBTreviewed possible contraindications including Cardiovas cular Stability /Sedation Score / FI02/PEEP / ABG / CXR/ secretions Sedation, discussed with RN, RASS -1 on fentanyl 50 propofol 40 precedex 1.0 Drips: ns 40 Pressors- no Consultants: Hospital course: (06/01) 61M admitted for PNA/ AECOPD Placed on Bipap in ER. 06/02 - 10 L o2 - d/c 06/05 (06/05)Returns with acute COPD exacerbation, rapid afib. Bipap and cardizem 06/06 - amio gtt , 6 L 06/07 - moved to bipap 27 h , started precedex 0.7 + ativan 06/08 - bipap 27 h 18/02 45 %--80 % rr 17 tv 1200 MV 20 - FAILED < INTUBATED 06/18 - AC 20 500 35% +6 , A/P Acute on chronic ( hypoxic and hypercapneic ) resp failure - NIPPV FAILED < INTUBATED -- AC 20 500 35% +6 - steroids iv - ADDITIONAL dose 125 06/08, , ABX , nebs - cont sedation -secretions moderate AECOPD ( with advanced severe COPD at baseline , O2 dependent 2 L O2 ) - IV steroids ( as per chart was d/c on prednisone 04/17/22 - nebs Leucocytosis with suspected PNA RLL ( negative for COVID influenza) - with recently TX for PNA -06/08 - seems worsening infiltrate slightly on right - sputum cx pending a FIB RVR - amio gtt OFF , cardisem NG -AC eliquis Echo on 06/13/18: LVEF 55-60%, PASP 30 mmHg - monitor fluid status Anxiety -precedex + propofol + versed , fentanyl gtt ( and on large dose po morphine at baseline - to cont NG ) Anemia - stable Nutrition - TF Lines : periph , (Central Line Necessity Reviewed) Samuel: 06/08 OG: Nutrition: TF Analgesia: Anxiety/ delirium VTE Prophylaxis: eliquis Stress Ulcer Prophylaxis: ppi Plans in collaboration with bedside consultants and IM MDs. Discussed with RN to reach out if any questions or concerns A total of 40 minutes of critical care time was devoted to this patient today, required to treat and/or prevent further deterioration of critical care condition ( as above ) . I am remotely monitoring this patient from another state. I am unable to do the bedside exam, and history/physical and pertinent information is taken from other notes in the computer and bedside staff. . Sepsis Event Evaluation Height, Weight, BMI Height: 5'8.00" Weight: 200lbs. 0.0oz. 90.112209fw; 28.49 BMI Method:Stated Exam Exam Patient acknowledged, consented, and participated in this virtual visit which was conducted using real time audio/video Vital Signs Date Time Temp Pulse Resp B/P (MAP) Pulse Ox O2 Delivery O2 Flow Rate FiO2 06/09/22 09:00 82 15 110/76 (95) 94 Mechanical Ventilator 35.00 06/09/22 08:04 93 06/09/22 08:00 92 15 114/77 (96) 91 Mechanical Ventilator 35.00 06/09/22 08:00 96 Mechanical Ventilator 30 06/09/22 07:47 36.3 06/09/22 07:30 36.2 06/09/22 07:14 92 20 91 35 06/09/22 07:00 89 06/09/22 07:00 87 21 120/79 (99) 91 Mechanical Ventilator 35.00 06/09/22 06:00 85 20 108/69 (82) 92 Mechanical Ventilator 35.00 06/09/22 05:18 86 110/55 06/09/22 05:00 87 20 116/65 (82) 94 Mechanical Ventilator 35.00 06/09/22 04:56 86 104/52 06/09/22 04:50 92 26 91 06/09/22 04:41 35 06/09/22 04:38 Mechanical Ventilator 35.00 06/09/22 04:00 87 25 116/65 (82) 97 Mechanical Ventilator 50.00 06/09/22 04:00 37.2 06/09/22 04:00 97 Mechanical Ventilator 50 06/09/22 03:00 82 21 110/64 (79) 97 Mechanical Ventilator 50.00 06/09/22 02:56 84 21 97 50 06/09/22 02:00 84 19 114/65 (81) 97 Mechanical Ventilator 50.00 06/09/22 01:13 84 120/58 06/09/22 01:00 82 20 114/64 (81) 98 Mechanical Ventilator 50.00 06/09/22 01:00 88 06/09/22 00:00 81 17 115/66 (82) 99 Mechanical Ventilator 50.00 06/08/22 23:59 97 Mechanical Ventilator 50 06/08/22 23:35 37.2 06/08/22 23:00 86 19 105/58 (74) 98 Mechanical Ventilator 50.00 06/08/22 22:40 79 19 95 50 06/08/22 22:31 80 110/51 06/08/22 22:00 80 19 120/70 (87) 100 Mechanical Ventilator 50.00 06/08/22 21:00 89 18 108/61 (77) 100 Mechanical Ventilator 50.00 06/08/22 20:50 91 96/58 06/08/22 20:50 91 96/58 06/08/22 20:16 36.7 06/08/22 20:00 96 21 101/68 (79) 99 Mechanical Ventilator 50.00 06/08/22 20:00 50 06/08/22 20:00 96 Mechanical Ventilator 50 06/08/22 19:55 92 92/52 06/08/22 19:30 101 129/56 06/08/22 19:30 101 129/56 06/08/22 19:11 64 20 100 50 06/08/22 19:00 65 28 103/58 (73) 100 Mechanical Ventilator 50.00 06/08/22 19:00 71 06/08/22 18:31 62 99/55 06/08/22 18:00 56 115/67 (83) 100 Mechanical Ventilator 50.00 06/08/22 17:00 61 113/67 (82) 100 Mechanical Ventilator 50.00 06/08/22 16:00 62 109/70 (83) 95 Mechanical Ventilator 50.00 06/08/22 16:00 36.3 2/9/23 16:00 95 Mechanical Ventilator 50 06/08/22 15:55 62 125/59 06/08/22 15:30 64 103/53 06/08/22 15:00 69 121/71 (88) 97 Mechanical Ventilator 50.00 06/08/22 14:35 Mechanical Ventilator 50.00 06/08/22 14:25 65 20 98 50 06/08/22 14:00 62 110/57 (74) 98 Mechanical Ventilator 70.00 06/08/22 13:00 79 117/75 (89) 98 Mechanical Ventilator 70.00 06/08/22 12:40 68 06/08/22 12:00 95 Mechanical Ventilator 100 06/08/22 12:00 79 104/70 (81) 98 Mechanical Ventilator 70.00 06/08/22 11:51 77 20 99 80 06/08/22 11:30 64 103/53 06/08/22 11:00 122 150/71 (97) 97 NIV Bilevel 40.00 06/08/22 10:34 113 28 92 40.00 06/08/22 10:04 95 NIV Bilevel 40.00 06/08/22 10:00 91 152/91 (111) 97 NIV Bilevel 45.00 I & O 06/09/22 07:00 Intake Total 2240 ml Output Total 1251 ml Balance 989 ml Height & Weight Height: 5'8.00" Weight: 200lbs. 0.0oz. 90.228477wp; 28.49 BMI Method:Stated General Appearance: Severe Distress (required intubation early this morning) HEENT: Other (patient has difficult time keeping his eyes open) Neck: Non Tender, Supple Respiratory: Accessory Muscle Use, Decreased Breath Sounds, Respiratory Distress Cardiovascular: Normal Peripheral Pulses, Irregularly Irregular, Tachycardia Capillary Refill: Less Than 3 Seconds Peripheral Pulses: 2+ Radial Pulses (R), 2+ Radial Pulses (L) Gastrointestinal: normal bowel sounds, non tender, soft Extremity: No Pedal Edema Neurologic/Psychiatric: Alert, Oriented x3 Skin: Normal Color, Warm/Dry, Ecchymosis Results Lab Laboratory Tests 06/08/22 04:46 06/09/22 04:10 Assessment/Plan Assessment/Plan 1 NATHEN DAMIAN MD Jun 09, 2022 09:53
--- NOTE | 2022-06-09 10:16 | Progress Note - Cardiology ---
Cardiology SOAP Progress Note Subjective: Intubated and sedated Objective: I&O/Vital Signs 06/11/22 06/11/22 06/11/22 06/11/22 20:27 21:00 22:00 22:41 Pulse 97 92 92 91 Resp 20 20 B/P (MAP) 142/78 140/68 (92) 145/81 (102) 147/71 Pulse Ox 91 91 O2 Delivery Mechanical Ventilator Mechanical Ventilator O2 Flow Rate 35.00 35.00 06/11/22 06/11/22 06/11/22 06/11/22 22:42 23:00 23:26 23:42 Temp 37.4 37.8 Pulse 90 93 90 Resp 20 20 B/P (MAP) 113/59 (77) Pulse Ox 94 90 94 O2 Delivery Mechanical Ventilator O2 Flow Rate 35.00 FiO2 35 35 06/11/22 06/12/22 06/12/22 06/12/22 23:59 00:00 00:00 01:00 Temp 37.8 Pulse 106 90 Resp 20 20 B/P (MAP) 128/74 (92) 130/84 (99) Pulse Ox 91 91 91 O2 Delivery Mechanical Ventilator Mechanical Ventilator Mechanical Ventilator O2 Flow Rate 35.00 35.00 FiO2 35 06/12/22 06/12/22 06/12/22 06/12/22 01:00 01:00 02:00 03:00 Temp 37.0 Pulse 90 87 86 Resp 20 20 B/P (MAP) 129/73 (91) 131/62 (85) Pulse Ox 90 90 O2 Delivery Mechanical Ventilator Mechanical Ventilator O2 Flow Rate 35.00 35.00 06/12/22 06/12/22 06/12/22 06/12/22 03:01 03:07 04:00 04:00 Pulse 85 86 90 Resp 20 20 B/P (MAP) 131/62 135/56 (82) Pulse Ox 92 91 91 O2 Delivery Mechanical Ventilator Mechanical Ventilator O2 Flow Rate 35.00 FiO2 35 35 06/12/22 06/12/22 06/12/22 06/12/22 04:00 05:00 06:00 07:00 Temp 37.2 Pulse 88 89 83 Resp 20 20 20 B/P (MAP) 148/73 (98) 136/82 (100) 137/74 (95) Pulse Ox 91 92 93 O2 Delivery Mechanical Ventilator Mechanical Ventilator Mechanical Ventilator O2 Flow Rate 35.00 35.00 35.00 06/12/22 06/12/22 07:09 07:29 Pulse 82 84 Resp 20 Pulse Ox 93 FiO2 35 06/12/22 00:00 Intake Total 1700 ml Output Total 1100 ml Balance 600 ml Weight (Pounds): 200 Weight (Ounces): 0.0 Weight (Calculated Kilograms): 90.664822 Constitutional: well-developed, well-nourished, other (sedated) Respiratory: No accessory muscle use, No respiratory distress; chest expansion is symmetric, chest is bilaterally symmetric, rhonchi (scattered), other (intubated on the vent; good air entry) Cardiovascular: irregularly irregular, tachycardia Gastrointestional: soft, audible bowel sounds Extremities: no lower extremity edema bilateral Neurologic/Psychiatric: other (unable to cooperate with neuro exam ) Skin: normal color, warm/dry; No rash on exposed areas, No ulcerations on exposed areas Results/Procedures: Labs Laboratory Tests 06/11/22 11:24: Glucometer 291H 06/11/22 17:39: Glucometer 306H 06/11/22 23:09: Glucometer 309H 06/12/22 03:00: White Blood Count 23.3H, Red Blood Count 3.88L, Hemoglobin 10.7L, Hematocrit 34L , Mean Corpuscular Volume 89, Mean Corpuscular Hemoglobin 28, Mean Corpuscular Hemoglobin Concent 31L, Red Cell Distribution Width 17.6H, Platelet Count 200, Mean Platelet Volume 11.5, Immature Granulocyte % (Auto) 3, Neutrophils (%) (Auto) 94H, Lymphocytes (%) (Auto) 1L, Monocytes (%) (Auto) 3, Eosinophils (%) (Auto) 0, Basophils (%) (Auto) 0, Neutrophils # (Auto) 21.8H, Lymphocytes # (Auto) 0.2L, Monocytes # (Auto) 0.6, Eosinophils # (Auto) 0.0, Basophils # (Auto) 0.0, Immature Granulocyte # (Auto) 0.6H, Neutrophils % (Manual) 96, Lymphocytes % (Manual) 2, Monocytes % (Manual) 2, Eosinophils % (Manual) 0, Basophils % (Manual) 0, Band Neutrophils 0, Hypochromasia SLIGHT, Anisocytosis SLIGHT, Target Cells SLIGHT, Sodium Level 143, Potassium Level 4.7, Chloride Level 101, Carbon Dioxide Level 33H, Anion Gap 9, Blood Urea Nitrogen 42H, Creatinine 0.74, Estimat Glomerular Filtration Rate 102, BUN/Creatinine Ratio 57, Glucose Level 320H, Calcium Level 7.8L, Corrected Calcium 8.8, Phosphorus Level 3.1, Magnesium Level 2.1, Total Bilirubin 0.4, Aspartate Amino Transf (AST/SGOT) 20, Alanine Aminotransferase (ALT/SGPT) 51, Alkaline Phosphatase 50, Total Protein 5.1L, Albumin 2.7L, Triglycerides Level 160H 06/12/22 05:09: Glucometer 330H 06/12/22 05:30: Blood Gas Puncture Site RRAD, Blood Gas Patient Temperature 37.1, Arterial Blood pH 7.43, Arterial Blood Partial Pressure CO2 61H, Arterial Blood Partial Pressure O2 70L, Arterial Blood HCO3 39H, Arterial Blood Total CO2 41.0*H, Arterial Blood Oxygen Saturation 95, Arterial Blood Base Excess 14.0H, Jeff Test YES-POS, Blood Gas Ventilator Setting YES, Blood Gas Inspired Oxygen 35% Microbiology 06/08/22 Gram Stain - Final, Complete 06/08/22 Sputum Culture - Final, Complete YEAST YEAST#2 06/05/22 Urine Culture - Final, Complete NO GROWTH Procedures NAME: KAYA CARPENTER [facility] REC#: [id number] PT STATUS: ADM IN : 1960 PHYSICIAN: MADISON BOURNE DO ADMIT DATE: 06/05/22/ICU Signed Date of Exam:06/09/22 CHEST 1 VIEW, AP/PA ONLY Indication: Shortness of breath Portable chest 5:04 AM There is metal shrapnel projecting over the left chest. There are emphysematous changes in the lungs. There are no infiltrates, effusions or pneumothoraces. ET tube projects over the trachea. NG tube enters the stomach. IMPRESSION: COPD. No acute abnormality seen. No appreciable change from previous day. Dictated by: Dictated on workstation # [id number] Dict: 06/09/2207 Trans: 06/09/22607 TCB [id number] Interpreted by: CHACHO ROJAS MD Electronically signed by: CHACHO ROJAS MD 06/09/22607 A/P: Assessment: Respiratory failure requiring intubation on 06-08-22 New onset a-fib with RVR - first dx on 06-05-22 at [facility] ED - converted with amiodarone - Not a good candidate for amiodarone long term care pharmacist d/t severe COPD - Dilt for vent rate control CAD: - Card cath of 10/22/18: Moderate coronary artery disease. There is approximately 50% mid vessel stenosis of the left anterior descending. Normal global left v entricular systolic function with ejection fraction approximately 65%. 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 Chronic diastolic CHF - Echocardiogram of 01-24-21 showed LVEF 55-60% Medication intolerance - H/o hyperkalemia when on AZ-inhibitors Hypertension and white-coat hypertension Urinary obstruction - managed by Dr Carpenter, currently on Flomax Carotid arterial disease - mild on carotid u/s of October 2019 Plan: * Heart rate improved post [facility] vent * Continue dilt for rate control (change to short acting formulary d/t meds needing to be crushed and given via tube) * Continue anticoag for stroke prophylaxis * Monitor labs * Prognosis guarded (advanced resp failure) GARY JAMES Jun 09, 2022 10:16
[2022-06-09] MEDS: DOCUSATE SODIUM 100 MG (COLACE) CAP PO SCH ×2 (10:17→21:26)
[2022-06-09] MEDS: RT--FLUTICASONE/SALMETEROL 232-14 (AIRDUO RespiCLICK) IH SCH (10:39)
[2022-06-09] MEDS: UMECLIDINIUM BROMIDE (INCRUSE ELLIPTA) 7'S IH SCH (10:40)
[2022-06-09] MEDS: MULTIVIT W/MINERALS TAB (THERAGRAN M) PO SCH (11:11)
[2022-06-09] MEDS: BACLOFEN 10 MG (LIORESAL) TAB PO SCH ×2 (11:12→17:49)
--- NOTE | 2022-06-09 13:04 | Progress Note - Hospitalist ---
INOCENCIA MOY 06/09/22 1304: Subjective HPI/CC On Admission Date Seen by Provider: Jun 09, 2022 Time Seen by Provider: 08:55 Kaya Carpenter, 61 yo M, with a past medical history of COPD, hypertension, hyperlipidemia, gastroesophageal reflux disease, hypothyroidism, and diastolic heart failure, presents to ED with a chief complaint of Respiratory Problems, noting elevated heart rate and low O2. He was discharged from [facility] earlier today after formerly being admitted for acute respiratory failure with hypoxia and respiratory acidosis, likely secondary to AECOPD and right middle lobe PNA. On interview, Kaya is sitting up in his ER bed wearing a BiPAP. His is present in the room. He is in mild respiratory distress. Patient states that he was being driven home by his earlier this afternoon when suddenly his heart rate spiked to 177 with an O2 sat of 90%. Shortly after his heart rate jumped again to 189 with an O2 sat of 87%. Therefore, they re-routed back to ED. He was wearing 6L O2 via nasal cannula at the time. Subjective/Events-last exam Kaya Carpenter, 61 yo M, is on day 2 of intubation. This morning he appears to be uncomfortable not breathing in sync with the ventilator. Started on Versed drip. Has been given Fentanyl for comfort. Patient was restarted on morphine after notified RN that he took morphine at home. Endotracheal sputum culture is negative for bacteria or WBCs. Blood glucose has been running in the 200s and pt is in SSI. Feeding tube is in place. Smallwood catheter shows straw-colored urine output. Family has been updated on his status. Vent settings: TV: 500 / RR: 20 / PEEP: 6.0 / FiO2: 35% ABG: pH: 7.38 / pCO2: 62 / pO2: 130 Review of Systems Intubated and Sedated Objective Exam Vital Signs Vital Signs Date Time Temp Pulse Resp B/P (MAP) Pulse Ox O2 Delivery O2 Flow Rate FiO2 06/09/22 13:58 75 06/09/22 13:00 20 99 Mechanical Ventilator 35.00 06/09/22 12:00 30 06/09/22 12:00 35.9 Capillary Refill : Less Than 3 Seconds General Appearance: Mild Distress HEENT: Other (Eyes closed - sedated) Respiratory: Decreased Breath Sounds, Expiration (prolonged expiratory breathes), Respiratory Distress, Other (tachypnea) Cardiovascular: Irregularly Irregular Gastrointestinal: Soft Extremity: Other (bilateral LE sequential compression devices in place / Arterial Line in left wrist) Neurologic/Psychiatric: Other (Sedated) Skin: Ecchymosis (bilateral arms) Results/Procedures Lab Laboratory Tests 06/09/22 04:10 Patient resulted labs reviewed. Imaging: Reviewed Imaging Report Radiology NAME: KAYA CARPENTER [facility] REC#: [id number] PT STATUS: ADM IN : 1960 PHYSICIAN: JOSEFA BOURNE DO ADMIT DATE: 06/05/22/ICU Signed Date of Exam:06/09/22 CHEST 1 VIEW, AP/PA ONLY Indication: Shortness of breath Portable chest 5:04 AM There is metal shrapnel projecting over the left chest. There are emphysematous changes in the lungs. There are no infiltrates, effusions or pneumothoraces. ET tube projects over the trachea. NG tube enters the stomach. IMPRESSION: COPD. No acute abnormality seen. No appreciable change from previous day. Dictated by: Dictated on workstation # [id number] Dict: 06/09/22606 Trans: 06/09/22 06 TCB [id number] Interpreted by: CHACHO ROJAS MD Electronically signed by: CHACHO ROJAS MD 06/09/22607 Procedures NAME: KAYA CARPENTER [facility] REC#: [id number] : 1960 ADMIT DATE: 06/05/22 PHYSICIAN: BONI TERRAZAS CRNA PROCEDURE REPORT Procedures/Interventions Procedure Start/Stop/Diagnosis Date of Procedure: Jun 08, 2022 Start Time: 11:10 Referring Physician: Saman Preprocedural Diagnosis: Respiratory Failure Brief History Called by housekeeping laundry worker for intubation and A-Line request per Dr. Bourne for acute respiratory failure. On arrival pt opened eyes to command but was tachycardic and dyspneic on bipap. Consent obtained from . Etomidate 14mg and Anectine 120mg for RSI. Ventilated with BVM 100%. VL with ICU Glidescope grade 1 view with #8.0 ETT passing easily and secured by RT aprox 23cm at lip with tube nielsen. BS coarse b/l, +ETCO2 color change with EZcap. After intubation was completed, left wrist was prepped with chloraprep and #20 g Arrow A-line placed x2 attempt. Good blood return and waveform on monitor. Catheter secured with sterile op site and secured with tape per ROR ENGINEER. Report to RN. Stop Time: 11:28 Postprocedural Diagnosis: Respiratory Failure Intubation RSI: Yes 100% pre-Ox, [id number]: Yes Intubation Method: orotracheal Videoscope used: Yes Medications: Etomidate Mask Ventilation: positive Positive End Tide CO2: Yes Breath Sounds after Intubation: bilateral-equal Intubated with ease: Yes Intubation Complications: no complications Post Intubation Xray-done: Yes Arterial Line Arterial Line Catheter: 20G Type: Radial Location: Left Procedure: prepped, draped in sterile fashion, good wave-form was obtained, patient tolerated procedure well, no immediate complications, post procedure area cleaned, post procedure dressing applied BONI TERRAZAS CRNA Jun 08, 2022 11:46 [id number] <Created by BONI TERRAZAS CRNA> <Electronically signed by BONI TERRAZAS CRNA> 06/08/22 1148 Assessment/Plan Assessment and Plan Assess & Plan/Chief Complaint Assessment & Plan: Acute on chronic respiratory failure with hypoxia and hypercapnia, requiring intubation -Required intubation for respiratory support - Day #2 -Continue IV steroids PNA with current septic shock -Multiple recorded low BPs -Pt has not required Levofed at this time CO2 Narcosis -Required intubation for respiratory support Atrial fibrillation with RVR -Managed by Cardiology -HR has improved post mechanical ventilation - Pt not suitable candidate for Amiodarone long-term d/t severe COPD - HR improved - continue current dose of Diltiazem - Continue Eliquis 5mg BID for stroke prophylaxis Critical Care: Ventilator Management JOSEFA BOURNE DO 06/10/22 0703: Supervisory-Addendum Brief Verification & Attestation Participated in pt care: history, MDM, physical Personally performed: exam, history, MDM, supervision of care Care discussed with: Medical Student Procedures: n/a Results interpretation: Verified all documentation Verification and Attestation of Medical Student E/M Service A medical student performed and documented this service in my presence. I reviewed and verified all information documented by the medical student and made modifications to such information, when appropriate. I personally performed the physical exam and medical decision making. Josefa Bourne, Jun 10, 2022,07:03 INOCENCIA MOY Jun 09, 2022 13:04 JOSEFA BOURNE DO Jun 10, 2022 07:03
--- NOTE | 2022-06-09 16:25 | Progress Note - Cardiology ---
Cardiology SOAP Progress Note Subjective: Intubated, on mech vent, unresponsive Objective: I&O/Vital Signs 06/09/22 06/09/22 06/09/22 06/09/22 04:38 04:41 04:50 04:56 Pulse 92 86 Resp 26 B/P (MAP) 104/52 Pulse Ox 91 O2 Delivery Mechanical Ventilator O2 Flow Rate 35.00 FiO2 35 06/09/22 06/09/22 06/09/22 06/09/22 05:00 05:18 06:00 07:00 Pulse 87 86 85 87 Resp 20 20 21 B/P (MAP) 116/65 (82) 110/55 108/69 (82) 120/79 (99) Pulse Ox 94 92 91 O2 Delivery Mechanical Ventilator Mechanical Ventilator Mechanical Ventilator O2 Flow Rate 35.00 35.00 35.00 06/09/22 06/09/22 06/09/22 06/09/22 07:00 07:14 07:30 07:47 Temp 36.2 36.3 Pulse 89 92 Resp 20 Pulse Ox 91 FiO2 35 06/09/22 06/09/22 06/09/22 06/09/22 08:00 08:00 08:04 09:00 Pulse 92 93 82 Resp 15 15 B/P (MAP) 114/77 (96) 110/76 (95) Pulse Ox 96 91 94 O2 Delivery Mechanical Ventilator Mechanical Ventilator Mechanical Ventilator O2 Flow Rate 35.00 35.00 FiO2 30 06/09/22 06/09/22 06/09/22 06/09/22 09:00 10:00 10:40 10:57 Pulse 67 65 63 64 Resp 19 20 B/P (MAP) 128/78 (103) 113/52 Pulse Ox 95 96 O2 Delivery Mechanical Ventilator O2 Flow Rate 35.00 FiO2 35 06/09/22 06/09/22 06/09/22 06/09/22 11:00 12:00 12:00 12:00 Temp 35.9 Pulse 65 75 Resp 20 22 B/P (MAP) 121/69 (90) 122/69 (86) Pulse Ox 96 96 96 O2 Delivery Mechanical Ventilator Mechanical Ventilator Mechanical Ventilator O2 Flow Rate 35.00 35.00 FiO2 30 06/09/22 06/09/22 06/09/22 06/09/22 12:42 12:56 13:00 13:58 Pulse 74 63 61 75 Resp 20 B/P (MAP) Pulse Ox 99 O2 Delivery Mechanical Ventilator O2 Flow Rate 35.00 06/09/22 06/09/22 06/09/22 06/09/22 14:00 15:00 15:33 16:00 Pulse 75 68 65 76 Resp 15 14 24 14 B/P (MAP) Pulse Ox 94 96 96 94 O2 Delivery Mechanical Ventilator Mechanical Ventilator Mechanical Ventilator O2 Flow Rate 35.00 35.00 35.00 FiO2 35 06/09/22 00:00 Intake Total 470 ml Output Total 601 ml Balance -131 ml Weight (Pounds): 200 Weight (Ounces): 0.0 Weight (Calculated Kilograms): 90.103218 Constitutional: well-developed, well-nourished, other (sedated) Respiratory: No accessory muscle use, No respiratory distress; chest expansion is symmetric, chest is bilaterally symmetric, rhonchi (scattered), other (intubated on the vent; good air entry) Cardiovascular: irregularly irregular, tachycardia Gastrointestional: soft, audible bowel sounds Extremities: no lower extremity edema bilateral Neurologic/Psychiatric: other (unable to cooperate with neuro exam ) Skin: normal color, warm/dry; No rash on exposed areas, No ulcerations on exposed areas Results/Procedures: Labs Laboratory Tests 06/08/22 17:54: Glucometer 212H 06/08/22 23:31: Glucometer 234H 06/09/22 03:20: Blood Gas Puncture Site LEFT ART, Blood Gas Patient Temperature 37.4, Arterial Blood pH 7.38, Arterial Blood Partial Pressure CO2 62H, Arterial Blood Partial Pressure O2 130H, Arterial Blood HCO3 36H, Arterial Blood Total CO2 37.5H, Arterial Blood Oxygen Saturation 100, Arterial Blood Base Excess 10.3H, Jeff Test YES-POS, Blood Gas Ventilator Setting NO, Blood Gas Inspired Oxygen 50% 06/09/22 04:10: White Blood Count 8.7, Red Blood Count 3.78L, Hemoglobin 10.4L, Hematocrit 33L, Mean Corpuscular Volume 88, Mean Corpuscular Hemoglobin 28, Mean Corpuscular Hemoglobin Concent 31L, Red Cell Distribution Width 16.7H, Platelet Count 248, Mean Platelet Volume 10.4, Immature Granulocyte % (Auto) 1, Neutrophils (%) (Auto) 95H, Lymphocytes (%) (Auto) 2L, Monocytes (%) (Auto) 3, Eosinophils (%) (Auto) 0, Basophils (%) (Auto) 0, Neutrophils # (Auto) 8.3H, Lymphocytes # (Auto) 0.2L, Monocytes # (Auto) 0.3, Eosinophils # (Auto) 0.0, Basophils # (Auto) 0.0, Immature Granulocyte # (Auto) 0.1, Sodium Level 142, Potassium Level 3.9, Chloride Level 102, Carbon Dioxide Level 29, Anion Gap 11, Blood Urea Nitrogen 44H, Creatinine 0.71, Estimat Glomerular Filtration Rate 104, BUN/Creatinine Ratio 62, Glucose Level 240H, Calcium Level 8.4L, Corrected Calcium 9.3, Phosphorus Level 2.4, Magnesium Level 2.0, Total Bilirubin 0.3, Aspartate Amino Transf (AST/SGOT) 16, Alanine Aminotransferase (ALT/SGPT) 22, Alkaline Phosphatase 52, Total Protein 5.5L, Albumin 2.9L, Triglycerides Level 176H 06/09/22 12:50: Glucometer 206H Microbiology 06/08/22 Gram Stain - Final, Resulted 06/08/22 Sputum Culture - Preliminary, Resulted YEAST 06/05/22 Urine Culture - Final, Complete NO GROWTH Laboratory Tests 06/08/22 04:46 06/09/22 04:10 A/P: Assessment: Respiratory failure requiring intubation on 06-08-22 New onset a-fib with RVR - first dx on 06-05-22 at [facility] ED - converted with amiodarone - Not a good candidate for amiodarone assisted d/t severe COPD - Dilt for vent rate control CAD: - Card cath of 10/22/18: Moderate coronary artery disease. There is approximately 50% mid vessel stenosis of the left anterior descending. Normal global left ventricular systolic function with ejection fraction approximately 65%. 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 Chronic diastolic CHF - Echocardiogram of 01-24-21 showed LVEF 55-60% Medication intolerance - H/o hyperkalemia when on AZ-inhibitors Hypertension and white-coat hypertension Urinary obstruction - managed by Dr Carpenter, currently on Flomax Carotid arterial disease - mild on carotid u/s of October 2019 Plan: * [facility] * Continue dilt for rate control (change to short acting formulary d/t meds needing to be crushed and given via tube) * Continue anticoag for stroke prophylaxis * Monitor labs * Prognosis guarded (advanced resp failure) DEANA JONES MD FACP FAC CCDS Jun 09, 2022 16:25
[2022-06-09] MEDS: fentaNYL DRIP PRE-MIX 250 ML IV SCH (17:51)
[2022-06-09] MEDS ORDERED: NS IV 500 ML 500 ML IV SCH (19:45)
[2022-06-09] MEDS ORDERED: NS IV 500 ML 500 ML ONE (19:51)
[2022-06-09] MEDS: MONTELUKAST 10 MG (SINGULAIR) TAB PO SCH (21:26)
[2022-06-09 21:29] LABS: ABG BASE EXCESS 7.6 MMOL/L (-2.5-2.5); ABG OXYGEN SATURATION 97 % (94-100); ABG PCO2 64 MMHG (35-45); ABG PO2 92 MMHG (79-93); ABG TCO2 35.3 MMOL/L (21.0-31.0)
[2022-06-09 21:30] LABS: ALLENS TEST ARTLINE; INSPIRED O2 35%; PATIENT TEMP 36.8; VENTILATOR YES
[2022-06-09 21:31] LABS: ABG PH 7.34 (7.37-7.43)
[2022-06-10] MEDS: methylPREDNISolone 125 MG (Solu-MEDROL) VIAL IVP SCH ×5 (00:02→23:23)
[2022-06-10] MEDS: morphine IMMEDIATE RELEASE 15 MG TABLET PO SCH ×5 (00:02→23:22)
[2022-06-10] MEDS: inSUlin ASPART (NovoLOG) 1 UNIT/0.01 ML (CHARGE PER UNIT) SC SCH ×5 (00:03→23:21)
[2022-06-10] MEDS: PROPOFOL DRIP (ICU) 100 ML IV SCH ×4 (00:20→23:22)
[2022-06-10] MEDS: NS IV 1000 ML 1,000 ML IV SCH (00:39)
[2022-06-10 02:47] VITALS: BP 117/96
[2022-06-10] MEDS: RT--FLUTICASONE/SALMETEROL 232-14 (AIRDUO RespiCLICK) IH SCH ×3 (02:52→21:47)
[2022-06-10] MEDS: RT-ALBUTEROL SULF 2.5 MG/3 ML PRE-MIX VIAL INH SCH ×6 (02:53→22:24)
[2022-06-10] MEDS: RT-IPRATROPIUM (ATROVENT) 0.5MG/2.5ML AMP IH SCH ×6 (02:53→22:24)
[2022-06-10 04:25] LABS: ABG BASE EXCESS 10.1 MMOL/L (-2.5-2.5); ABG OXYGEN SATURATION 97 % (94-100); ABG PCO2 63 MMHG (35-45); ABG PH 7.37 (7.37-7.43); ABG PO2 78 MMHG (79-93); ABG TCO2 37.4 MMOL/L (21.0-31.0)
[2022-06-10 04:26] LABS: ALLENS TEST ARTLINE; BASOPHILS % (AUTO) 0 % (0-10); EOSINOPHILS % (AUTO) 0 % (0-10); HEMATOCRIT 32 % (40-54); INSPIRED O2 35%; LYMPHOCYTES # (AUTO) 0.1 10^3/uL (1.0-4.0); LYMPHOCYTES % (AUTO) 1 % (12-44); MEAN CORPUSCULAR HEMOGLOBIN 27 pg (25-34); MEAN CORPUSCULAR HGB CONC 31 g/dL (32-36); MEAN CORPUSCULAR VOLUME 89 fL (80-99); MEAN PLATELET VOLUME 10.8 fL (9.0-12.2); MONOCYTES # (AUTO) 0.3 10^3/uL (0.0-1.0); MONOCYTES % (AUTO) 2 % (0-12); NEUTROPHILS # (AUTO) 14.2 10^3/uL (1.8-7.8); NEUTROPHILS % (AUTO) 96 % (42-75); PATIENT TEMP 37.1; PLATELET COUNT 228 10^3/uL (130-400); VENTILATOR YES; WHITE BLOOD COUNT 14.9 10^3/uL (4.3-11.0)
[2022-06-10 04:34] LABS: ALBUMIN 2.9 GM/DL (3.2-4.5); POTASSIUM 4.3 MMOL/L (3.6-5.0)
[2022-06-10 04:36] LABS: CALCIUM 8.2 MG/DL (8.5-10.1)
[2022-06-10 04:37] LABS: TOTAL PROTEIN 5.5 GM/DL (6.4-8.2)
[2022-06-10 04:38] LABS: BILIRUBIN,TOTAL 0.3 MG/DL (0.1-1.0)
[2022-06-10 04:41] LABS: CREATININE SERUM 0.67 MG/DL (0.60-1.30)
[2022-06-10] MEDS: POTASSIUM CL 10MEQ/50ML IVPB 50 ML IV SCH (05:11)
[2022-06-10] MEDS: MAGNESIUM 1 GM/100 ML IVPB 100 ML IV SCH (05:11)
[2022-06-10] MEDS: KCL 20 MEQ TAB (K-DUR) PO SCH (05:11)
[2022-06-10] MEDS: DexMEDEtomidine 250 ML DRIP 250 ML IV SCH ×2 (06:16→20:34)
[2022-06-10] MEDS: UMECLIDINIUM BROMIDE (INCRUSE ELLIPTA) 7'S IH SCH (07:25)
[2022-06-10 07:29] VITALS: BP 116/58
[2022-06-10] MEDS ORDERED: DOCUSATE SODIUM 10 MG/ML 10 ML UDC (COLACE) PO PRN (08:00)
--- NOTE | 2022-06-10 08:21 | Diagnostic Imaging Report ---
EXAMINATION: Chest 1 view HISTORY: Dyspnea COMPARISON: 06/09/2022 FINDINGS: Heart size and pulmonary vasculature are normal. The right lung base is not entirely visualized. Trace left pleural effusion. There are coarse interstitial opacities within the lower lungs. Multiple calcifications overlie the left chest. No pneumothorax. Interval placement of a right-sided PICC line with the tip projecting over the SVC. Medical support lines and tubes otherwise unchanged. The osseous structures are intact. IMPRESSION: 1. Right-sided PICC line placement with the tip projecting over the SVC. No pneumothorax. 2. Stable trace left pleural effusion with bibasilar interstitial opacities. Dictated by: Dictated on workstation # [id number]
[2022-06-10] MEDS: TAMSULOSIN 0.4 MG (FLOMAX) CAP PO SCH (08:41)
[2022-06-10] MEDS: PANTOPRAZOLE 40 MG (PROTONIX) VIAL IV SCH (08:41)
[2022-06-10] MEDS: ROFLUMILAST 500 MCG TAB (DALIRESP) PO SCH (08:41)
[2022-06-10] MEDS: LORATADINE (CLARITIN) 10 MG TAB PO SCH (08:41)
[2022-06-10] MEDS: APIXABAN 5 MG (ELIQUIS) TABLET PO SCH ×2 (08:41→20:34)
[2022-06-10] MEDS: SENNOSIDES 8.6 MG (SENOKOT) TAB PO SCH ×2 (09:30→20:34)
--- NOTE | 2022-06-10 09:42 | Physical Therapy Progress Note ---
Therapy Progress Note Pt is currently intubated and will need new orders when extubated until then PT to continue to monitor pt's status then will initiate treatment when new orders are received, pt is medically stable and able to participate in skilled therapy. SALLY ANDERSEN PT Jun 10, 2022 09:42
[2022-06-10] MEDS ORDERED: POT PHOS/NA PHOS (K-PHOS NEUTRAL) PO NR (10:00)
[2022-06-10 10:25] VITALS: BP 117/76
[2022-06-10] MEDS: DOCUSATE SODIUM 10 MG/ML 10 ML UDC (COLACE) PO SCH ×2 (10:40→20:34)
[2022-06-10] MEDS: BACLOFEN 10 MG (LIORESAL) TAB PO SCH ×2 (10:40→18:11)
[2022-06-10] MEDS: MULTIVIT W/MINERALS TAB (THERAGRAN M) PO SCH (10:41)
--- NOTE | 2022-06-10 10:41 | Tele-ICU Progress Note ---
Subjective Date Seen by a Provider: Jun 10, 2022 Time Seen by a Provider: 10:41 Subjective/Events-last exam (Tele-ICU Physician , Progress Note ) Service provided via interactive audio and video telecommunications E-CARE system to a patient admitted to ICU bed in [facility]. Patient is seen today due to persistent need of ICU care Available chart/ vitals / labs / Images reviewed Video assessment done using teleICU camera, rest of exam as per RN Discussed with RN Events overnight : recived boluses Afebrile hemodynamically stable Respiratory - 35% +6 I/O = +2L VENT SETTINGS and ABG reviewed NOT CANDIDATE for SBTreviewed possible contraindications including Cardiovascular Stability /Sedation Score / FI02/PEEP / ABG / CXR/ secretions Sedation, discussed with RN, RASS -1 on fentanyl 100 propofol 15 precedex 0.8 Drips: ns 40 Pressors- no Consultants: Hospital course: (06/01) 61M admitted for PNA/ AECOPD Placed on Bipap in ER. 06/02 - 10 L o2 - d/c 06/05 (06/05)Returns with acute COPD exacerbation, rapid afib. Bipap and cardizem 06/06 - amio gtt , 6 L 06/07 - moved to bipap 27 h , started precedex 0.7 + ativan 06/08 - bipap 27 h 18/02 45 %--80 % rr 17 tv 1200 MV 20 - FAILED < INTUBATED 06/09- AC 20 500 35% +6 - ASYNCHRONOUS with vent and hypotensive with sedation , - tried SIMV - better with proloned exalation , but changed back to AC with increased WOB 06/10- AC 20 500 35% +6 PAP 30 DIFFLUCAN added 06/10 , on fentanyl 100 propofol 15 precedex 0.8 A/P Acute on chronic ( hypoxic and hypercapneic ) resp failure - NIPPV FAILED < INTUBATED 06/08 -- AC 20 500 35% +6 PAP 30 - steroids iv - ADDITIONAL dose 125 06/08, - ABX , nebs - cont sedation -secretions moderate AECOPD ( with advanced severe COPD at baseline , O2 dependent 2 L O2 ) - IV steroids ( as per chart was d/c on prednisone 04/17/22 - nebs Leucocytosis with suspected PNA RLL ( negative for COVID influenza) - with recently TX for PNA -06/08 - seems worsening infiltrate slightly on right - sputum cx + yeast with long steroiud use - DIFFLUCAN added 06/10 a FIB RVR - amio gtt OFF , cardizem NG -AC eliquis Echo on 06/13/18: LVEF 55-60%, PASP 30 mmHg - monitor fluid status, stop IVF consided diuresis if BP stable Anxiety -precedex + propofol +, fentanyl gtt ( and on large dose po morphine at baseline - to cont NG ) Anemia - stable Nutrition - TF - at goal 50 ml/h Lines : R picc 06/08 , (Central Line Necessity Reviewed) [place]: 06/08 OG: Nutrition: TF Analgesia: Anxiety/ delirium VTE Prophylaxis: eliquis Stress Ulcer Prophylaxis: ppi Plans in collaboration with bedside consultants and IM MDs. Discussed with RN to reach out if any questions or concerns A total of 35 minutes of critical care time was devoted to this patient toda y, required to treat and/or prevent further deterioration of critical care condition ( as above ) . I am remotely monitoring this patient from another state. I am unable to do the bedside exam, and history/physical and pertinent information is taken from other notes in the computer and bedside staff. Sepsis Event Evaluation Height, Weight, BMI Height: 5'8.00" Weight: 200lbs. 0.0oz. 90.016054pf; 29.30 BMI Method:Stated Exam Exam Patient acknowledged, consented, and participated in this virtual visit which was conducted using real time audio/video Vital Signs Date Time Temp Pulse Resp B/P (MAP) Pulse Ox O2 Delivery O2 Flow Rate FiO2 06/10/22 10:32 92 126/71 06/10/22 10:25 93 26 92 35 06/10/22 10:00 96 17 128/75 (92) 98 Mechanical Ventilator 35.00 Arterial Line 06/10/22 09:21 117 163/63 06/10/22 09:04 91 104/52 06/10/22 09:00 92 13 89 Mechanical Ventilator 35.00 06/10/22 08:34 93 90/50 06/10/22 08:15 95 102/54 06/10/22 08:02 88 92/50 06/10/22 08:00 96 13 90 Mechanical Ventilator 35.00 06/10/22 08:00 Mechanical Ventilator 35 06/10/22 07:57 36.5 06/10/22 07:29 87 25 92 35 06/10/22 07:00 86 15 93 Mechanical Ventilator 35.00 06/10/22 07:00 88 06/10/22 06:16 91 117/96 06/10/22 06:00 95 21 93 Mechanical Ventilator 35.00 06/10/22 05:55 37.1 06/10/22 05:23 91 117/96 06/10/22 05:00 98 25 93 Mechanical Ventilator 35.00 06/10/22 04:19 91 117/96 06/10/22 04:17 37.1 06/10/22 04:00 92 Mechanical Ventilator 35 06/10/22 04:00 90 28 93 Mechanical Ventilator 35.00 06/10/22 03:00 91 24 92 Mechanical Ventilator 35.00 06/10/22 02:47 93 21 93 35 06/10/22 02:00 89 12 93 Mechanical Ventilator 35.00 06/10/22 01:00 92 16 94 Mechanical Ventilator 35.00 06/10/22 01:00 100 06/10/22 00:20 91 110/59 06/10/22 00:16 37.2 06/10/22 00:00 109 16 94 Mechanical Ventilator 35.00 06/09/22 23:59 93 Mechanical Ventilator 35 06/09/22 23:39 91 110/59 06/09/22 23:00 96 20 93 Mechanical Ventilator 35.00 06/09/22 22:35 91 20 94 35 06/09/22 22:00 95 13 95 Mechanical Ventilator 35.00 06/09/22 21:51 124 145/64 06/09/22 21:02 124 145/64 06/09/22 21:00 102 14 95 Mechanical Ventilator 35.00 06/09/22 20:23 124 27 95 40 06/09/22 20:03 79/35 06/09/22 20:00 116 15 94 Mechanical Ventilator 35.00 06/09/22 20:00 37.6 06/09/22 20:00 95 Mechanical Ventilator 35 06/09/22 19:39 105 97/40 06/09/22 19:00 117 30 90 Mechanical Ventilator 35.00 06/09/22 19:00 118 06/09/22 18:43 105 20 93 35 06/09/22 18:20 112 06/09/22 18:00 122 26 90 Mechanical Ventilator 35.00 06/09/22 17:51 111 06/09/22 17:38 114 21 90 35 06/09/22 17:02 88 90/42 06/09/22 17:00 87 16 94 Mechanical Ventilator 35.00 06/09/22 16:00 76 14 94 Mechanical Ventilator 35.00 06/09/22 16:00 35.3 06/09/22 16:00 96 Mechanical Ventilator 30 06/09/22 15:33 65 24 96 35 06/09/22 15:00 68 14 96 Mechanical Ventilator 35.00 06/09/22 14:00 75 15 94 Mechanical Ventilator 35.00 06/09/22 13:58 75 06/09/22 13:00 61 20 99 Mechanical Ventilator 35.00 06/09/22 12:56 63 06/09/22 12:42 74 06/09/22 12:00 75 22 122/69 (86) 96 Mechanical Ventilator 35.00 06/09/22 12:00 96 Mechanical Ventilator 30 06/09/22 12:00 35.9 06/09/22 11:00 65 20 121/69 (90) 96 Mechanical Ventilator 35.00 06/09/22 10:57 64 113/52 I & O 06/10/22 07:00 Intake Total 3530 ml Output Total 1450 ml Balance 2080 ml Height & Weight Height: 5'8.00" Weight: 200lbs. 0.0oz. 90.830486hi; 29.30 BMI Method:Stated General Appearance: Mild Distress HEENT: Other (Eyes closed - sedated) Neck: Non Tender, Supple Respiratory: Decreased Breath Sounds, Expiration (prolonged expiratory carly athes), Respiratory Distress, Other (tachypnea) Cardiovascular: Irregularly Irregular Capillary Refill: Less Than 3 Seconds Peripheral Pulses: 2+ Radial Pulses (R), 2+ Radial Pulses (L) Gastrointestinal: normal bowel sounds, non tender, soft Extremity: Other (bilateral LE sequential compression devices in place / Arterial Line in left wrist) Neurologic/Psychiatric: Other (Sedated) Skin: Ecchymosis (bilateral arms) Results Lab Laboratory Tests 06/09/22 04:10 06/10/22 04:16 Assessment/Plan Assessment/Plan 1 NATHEN DAMIAN MD Jun 10, 2022 10:41
--- NOTE | 2022-06-10 11:38 | Progress Note - Hospitalist ---
Subjective HPI/CC On Admission Date Seen by Provider: Jun 10, 2022 Time Seen by Provider: 11:45 Kaya Carpenter, 61 yo M, with a past medical history of COPD, hypertension, hyperlipidemia, gastroesophageal reflux disease, hypothyroidism, and diastolic heart failure, presents to ED with a chief complaint of Respiratory Problems, noting elevated heart rate and low O2. He was discharged from [facility] earlier today after formerly being admitted for acute respiratory failure with hypoxia and respiratory acidosis, likely secondary to AECOPD and right middle lobe PNA. On interview, Kaya is sitting up in his ER bed wearing a BiPAP. His is present in the room. He is in mild respiratory distress. Patient states that he was being driven home by his earlier this afternoon when suddenly his heart rate spiked to 177 with an O2 sat of 90%. Shortly after his heart rate jumped again to 189 with an O2 sat of 87%. Therefore, they re-routed back to ED. He was wearing 6L O2 via nasal cannula at the time. Subjective/Events-last exam Still intubated but stable at bedside Very severe COPD since 6L/min O2 at home at baseline Reviewed meds BP low Objective Exam Vital Signs Vital Signs Date Time Temp Pulse Resp B/P (MAP) Pulse Ox O2 Delivery O2 Flow Rate FiO2 06/11/22 06:00 96 20 102/51 (68) 92 Mechanical Ventilator 35.00 06/11/22 05:56 37.5 06/11/22 03:57 35 Capillary Refill : Less Than 3 Seconds General Appearance: Chronically ill, Other (sedated and intubated) Respiratory: Decreased Breath Sounds, Other (vent) Cardiovascular: Regular Rate, Rhythm Results/Procedures Lab Laboratory Tests 06/11/22 03:45 Patient resulted labs reviewed. Imaging: Reviewed Imaging Report Procedures NAME: KAYA CARPENTER [facility] REC#: [id number] : 1960 ADMIT DATE: 06/05/22 PHYSICIAN: BONI TERRAZAS CRNA PROCEDURE REPORT Procedures/Interventions Procedure Start/Stop/Diagnosis Date of Procedure: Jun 08, 2022 Start Time: 11:10 Referring Physician: Saman Preprocedural Diagnosis: Respiratory Failure Brief History Called by bottle house cleaners supervisor for intubation and A-Line request per Dr. Bourne for acute respiratory failure. On arrival pt opened eyes to command but was tachycardic and dyspneic on bipap. Consent obtained from . Etomidate 14mg and Anectine 120mg for RSI. Ventilated with BVM 100%. VL with ICU Glidescope grade 1 view with #8.0 ETT passing easily and secured by RT aprox 23cm at lip with tube nielsen. BS coarse b/l, +ETCO2 color change with EZcap. After intubation was completed, left wrist was prepped with chloraprep and #20 g Arrow A-line placed x2 attempt. Good blood return and waveform on monitor. Catheter secured with sterile op site and secured with tape per [employer] AGENCY REFERRAL CLERK. Report to RN. Stop Time: 11:28 Postprocedural Diagnosis: Respiratory Failure Intubation RSI: Yes 100% pre-Ox, [id number]: Yes Intubation Method: orotracheal Videoscope used: Yes Medications: Etomidate Mask Ventilation: positive Positive End Tide CO2: Yes Breath Sounds after Intubation: bilateral-equal Intubated with ease: Yes Intubation Complications: no complications Post Intubation Xray-done: Yes Arterial Line Arterial Line Catheter: 20G Type: Radial Location: Left Procedure: prepped, draped in sterile fashion, good wave-form was obtained, patient tolerated procedure well, no immediate complications, post procedure area cleaned, post procedure dressing applied BONI TERRAZAS CRNA Jun 08, 2022 11:46 [id number] <Created by BONI TERRAZAS CRNA> <Electronically signed by BONI TERRAZAS CRNA> 06/08/22 1148 Assessment/Plan Assessment and Plan Assess & Plan/Chief Complaint Assessment: Acute on chronic respiratory failure with hypoxia and hypercapnia, requiring intubation -Required intubation for respiratory support - Day #3 -Continue IV steroids PNA with current sepsis CO2 Narcosis -Required intubation for respiratory support Atrial fibrillation with RVR -Managed by Cardiology -HR has improved post mechanical ventilation - 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
[2022-06-10] MEDS: fentaNYL DRIP PRE-MIX 250 ML IV SCH ×2 (13:14→20:34)
--- NOTE | 2022-06-10 14:38 | Progress Note - Cardiology ---
Cardiology SOAP Progress Note Subjective: Intubated, on mech vent, non-communicative Objective: I&O/Vital Signs 06/10/22 06/10/22 06/10/22 06/10/22 02:47 03:00 04:00 04:00 Pulse 93 91 90 Resp 21 24 28 B/P (MAP) Pulse Ox 93 92 93 92 O2 Delivery Mechanical Ventilator Mechanical Ventilator Mechanical Ventilator O2 Flow Rate 35.00 35.00 FiO2 35 35 06/10/22 06/10/22 06/10/22 06/10/22 04:17 04:19 05:00 05:23 Temp 37.1 Pulse 91 98 91 Resp 25 B/P (MAP) 117/96 117/96 Pulse Ox 93 O2 Delivery Mechanical Ventilator O2 Flow Rate 35.00 06/10/22 06/10/22 06/10/22 06/10/22 05:55 06:00 06:16 07:00 Temp 37.1 Pulse 95 91 88 Resp 21 B/P (MAP) 117/96 Pulse Ox 93 O2 Delivery Mechanical Ventilator O2 Flow Rate 35.00 06/10/22 06/10/22 06/10/22 06/10/22 07:00 07:29 07:57 08:00 Temp 36.5 Pulse 86 87 Resp 15 25 B/P (MAP) Pulse Ox 93 92 O2 Delivery Mechanical Ventilator Mechanical Ventilator O2 Flow Rate 35.00 FiO2 35 35 06/10/22 06/10/22 06/10/22 06/10/22 08:00 08:02 08:15 08:34 Pulse 96 88 95 93 Resp 13 B/P (MAP) 92/50 102/54 90/50 Pulse Ox 90 O2 Delivery Mechanical Ventilator O2 Flow Rate 35.00 06/10/22 06/10/22 06/10/22 06/10/22 09:00 09:04 09:21 10:00 Pulse 92 91 117 96 Resp 13 17 B/P (MAP) 104/52 163/63 128/75 (92) Arterial Line Pulse Ox 89 98 O2 Delivery Mechanical Ventilator Mechanical Ventilator O2 Flow Rate 35.00 35.00 06/10/22 06/10/22 06/10/22 06/10/22 10:25 10:32 10:41 11:00 Temp 37.9 Pulse 93 92 88 Resp 26 19 B/P (MAP) 126/71 116/66 (83) Pulse Ox 92 95 O2 Delivery Mechanical Ventilator O2 Flow Rate 35.00 FiO2 35 06/10/22 06/10/22 06/10/22 06/10/22 11:59 12:00 12:00 12:25 Temp 36.5 Pulse 87 86 Resp 19 B/P (MAP) 117/64 (83) Pulse Ox 96 O2 Delivery Mechanical Ventilator Mechanical Ventilator O2 Flow Rate 35.00 FiO2 35 06/10/22 06/10/22 06/10/22 06/10/22 13:00 13:14 13:58 14:00 Pulse 80 80 75 76 Resp 20 20 B/P (MAP) 128/70 (91) 128/70 126/71 126/68 (91) Pulse Ox 96 96 O2 Delivery Mechanical Ventilator Mechanical Ventilator O2 Flow Rate 35.00 35.00 06/10/22 00:00 Intake Total 1440 ml Output Total 700 ml Balance 740 ml Weight (Pounds): 200 Weight (Ounces): 0.0 Weight (Calculated Kilograms): 90.674177 Constitutional: well-developed, well-nourished, other (sedated) Respiratory: No accessory muscle use, No respiratory distress; chest expansion is symmetric, chest is bilaterally symmetric, rhonchi (scattered), other (intubated on the vent; good air entry) Cardiovascular: irregularly irregular, tachycardia Gastrointestional: soft, audible bowel sounds Extremities: no lower extremity edema bilateral Neurologic/Psychiatric: other (unable to cooperate with neuro exam ) Skin: normal color, warm/dry; No rash on exposed areas, No ulcerations on exposed areas Results/Procedures: Labs Laboratory Tests 06/09/22 18:01: Glucometer 238H 06/09/22 21:10: Blood Gas Puncture Site ARTLINE, Blood Gas Patient Temperature 36.8, Arterial Blood pH 7.34*L, Arterial Blood Partial Pressure CO2 64H, Arterial Blood Partial Pressure O2 92, Arterial Blood HCO3 33H, Arterial Blood Total CO2 35.3H, Arterial Blood Oxygen Saturation 97, Arterial Blood Base Excess 7.6H, Jeff Test ARTLINE, Blood Gas Ventilator Setting YES, Blood Gas Inspired Oxygen 35% 06/09/22 23:50: Glucometer 224H 06/10/22 04:16: Blood Gas Puncture Site ARTLINE, Blood Gas Patient Temperature 37.1, Arterial Blood pH 7.37, Arterial Blood Partial Pressure CO2 63H, Arterial Blood Partial Pressure O2 78L, Arterial Blood HCO3 36H, Arterial Blood Total CO2 37.4H, Arterial Blood Oxygen Saturation 97, Arterial Blood Base Excess 10.1H, Jeff Test ARTLINE, Blood Gas Ventilator Setting YES, Blood Gas Inspired Oxygen 35%, White Blood Count 14.9H, Red Blood Count 3.65L, Hemoglobin 10.0L, Hematocrit 32L , Mean Corpuscular Volume 89, Mean Corpuscular Hemoglobin 27, Mean Corpuscular Hemoglobin Concent 31L, Red Cell Distribution Width 16.8H, Platelet Count 228, Mean Platelet Volume 10.8, Immature Granulocyte % (Auto) 2, Neutrophils (%) (Auto) 96H, Lymphocytes (%) (Auto) 1L, Monocytes (%) (Auto) 2, Eosinophils (%) (Auto) 0, Basophils (%) (Auto) 0, Neutrophils # (Auto) 14.2H, Lymphocytes # (Auto) 0.1L, Monocytes # (Auto) 0.3, Eosinophils # (Auto) 0.0, Basophils # (Auto) 0.0, Immature Granulocyte # (Auto) 0.2H, Sodium Level 142, Potassium Level 4.3, Chloride Level 103, Carbon Dioxide Level 29, Anion Gap 10, Blood Urea Nitrogen 38H, Creatinine 0.67, Estimat Glomerular Filtration Rate 106, BUN/Creatinine Ratio 57, Glucose Level 258H, Calcium Level 8.2L, Corrected Tj cium 9.1, Phosphorus Level 2.0L, Magnesium Level 2.0, Total Bilirubin 0.3, Aspa rtate Amino Transf (AST/SGOT) 22, Alanine Aminotransferase (ALT/SGPT) 29, Alkaline Phosphatase 51, Total Protein 5.5L, Albumin 2.9L, Triglycerides Level 110 06/10/22 11:44: Glucometer 268H Microbiology 06/08/22 Gram Stain - Final, Resulted 06/08/22 Sputum Culture - Preliminary, Resulted YEAST 06/05/22 Urine Culture - Final, Complete NO GROWTH Laboratory Tests 06/09/22 04:10 06/10/22 04:16 A/P: Assessment: Respiratory failure requiring intubation on 06-08-22 New onset a-fib with RVR - first dx on 06-05-22 at [facility] ED - converted with amiodarone - Not a good candidate for 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 There is approximately 50% mid vessel stenosis of the left anterior descending. Normal global left ventricular systolic function with ejection fraction approximately 65%. 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 Chronic diastolic CHF - Echocardiogram of 01-24-21 showed LVEF 55-60% Medication intolerance - H/o hyperkalemia when on AZ-inhibitors Hypertension and white-coat hypertension Urinary obstruction - managed by Dr Carpenter, currently on Flomax Carotid arterial disease - mild on carotid u/s of October 2019 Plan: * Heart rate improved post mech vent * Continue dilt for rate control (change to short acting formulary d/t meds needing to be crushed and given via tube) * Continue anticoag for stroke prophylaxis * Monitor and correct labs * Prognosis guarded (advanced resp failure) DEANA JONES MD FACP FAC CCDS Jun 10, 2022 14:38
[2022-06-10 14:51] VITALS: BP 122/66
[2022-06-10 18:58] VITALS: BP 107/61
[2022-06-10] MEDS: MONTELUKAST 10 MG (SINGULAIR) TAB PO SCH (20:34)
[2022-06-10 22:24] VITALS: BP 123/66
[2022-06-11] VITALS (7 sets, daily range): BP systolic 107–147; BP diastolic 54–77
[2022-06-11] MEDS: RT-ALBUTEROL SULF 2.5 MG/3 ML PRE-MIX VIAL INH SCH ×6 (02:46→22:41)
[2022-06-11] MEDS: RT-IPRATROPIUM (ATROVENT) 0.5MG/2.5ML AMP IH SCH ×6 (02:46→22:41)
[2022-06-11 03:55] LABS: ABG BASE EXCESS 13.3 MMOL/L (-2.5-2.5); ABG OXYGEN SATURATION 95 % (94-100); ABG PCO2 63 MMHG (35-45); ABG PH 7.41 (7.37-7.43); ABG PO2 69 MMHG (79-93)
[2022-06-11 03:56] LABS: ALLENS TEST YES-POS; BASOPHILS % (AUTO) 0 % (0-10); EOSINOPHILS % (AUTO) 0 % (0-10); HEMATOCRIT 31 % (40-54); HEMOGLOBIN 9.9 g/dL (13.3-17.7); INSPIRED O2 35%; LYMPHOCYTES # (AUTO) 0.1 10^3/uL (1.0-4.0); LYMPHOCYTES % (AUTO) 1 % (12-44); MEAN CORPUSCULAR HEMOGLOBIN 28 pg (25-34); MEAN CORPUSCULAR HGB CONC 32 g/dL (32-36); MEAN CORPUSCULAR VOLUME 88 fL (80-99); MEAN PLATELET VOLUME 11.3 fL (9.0-12.2); MONOCYTES # (AUTO) 0.3 10^3/uL (0.0-1.0); MONOCYTES % (AUTO) 2 % (0-12); NEUTROPHILS % (AUTO) 94 % (42-75); PATIENT TEMP 37.5; PLATELET COUNT 211 10^3/uL (130-400); VENTILATOR YES; WHITE BLOOD COUNT 14.8 10^3/uL (4.3-11.0)
[2022-06-11 03:58] LABS: ABG TCO2 40.4 MMOL/L (21.0-31.0)
[2022-06-11 04:07] LABS: ALBUMIN 2.7 GM/DL (3.2-4.5); POTASSIUM 4.6 MMOL/L (3.6-5.0)
[2022-06-11 04:08] LABS: CALCIUM 7.8 MG/DL (8.5-10.1)
[2022-06-11 04:09] LABS: TOTAL PROTEIN 5.2 GM/DL (6.4-8.2)
[2022-06-11 04:11] LABS: BILIRUBIN,TOTAL 0.4 MG/DL (0.1-1.0)
[2022-06-11 04:13] LABS: CREATININE SERUM 0.64 MG/DL (0.60-1.30); PHOSPHORUS 1.6 MG/DL (2.3-4.7)
[2022-06-11 04:16] LABS: MAGNESIUM 1.9 MG/DL (1.6-2.4)
[2022-06-11 04:21] LABS: LYMPHOCYTES % (MANUAL) 2 %; NEUTROPHILS % (MANUAL) 94 %
[2022-06-11 04:22] LABS: METAMYELOCYTES % 1 %; MONOCYTES % (MANUAL) 3 %
[2022-06-11] MEDS: fentaNYL DRIP PRE-MIX 250 ML IV SCH ×3 (04:25→20:27)
[2022-06-11] MEDS: POTASSIUM CL 10MEQ/50ML IVPB 50 ML IV SCH (05:17)
[2022-06-11] MEDS: KCL 20 MEQ TAB (K-DUR) PO SCH (05:18)
[2022-06-11] MEDS: MAGNESIUM 1 GM/100 ML IVPB 100 ML IV SCH ×3 (05:18→05:26)
[2022-06-11] MEDS: methylPREDNISolone 125 MG (Solu-MEDROL) VIAL IVP SCH ×4 (05:25→23:11)
[2022-06-11] MEDS: inSUlin ASPART (NovoLOG) 1 UNIT/0.01 ML (CHARGE PER UNIT) SC SCH ×4 (05:25→23:16)
[2022-06-11] MEDS: morphine IMMEDIATE RELEASE 15 MG TABLET PO SCH ×4 (05:26→23:12)
[2022-06-11] MEDS ORDERED: SODIUM PHOSPHATE INJ 30 MM in NS (IVPB) 250 ML INJ NR (07:30)
--- NOTE | 2022-06-11 07:31 | Progress Note - Hospitalist ---
Subjective HPI/CC On Admission Date Seen by Provider: Jun 11, 2022 Time Seen by Provider: 11:00 Kaya Carpenter, 61 yo M, with a past medical history of COPD, hypertension, hyperlipidemia, gastroesophageal reflux disease, hypothyroidism, and diastolic heart failure, presents to ED with a chief complaint of Respiratory Problems, noting elevated heart rate and low O2. He was discharged from [facility] earlier today after formerly being admitted for acute respiratory failure with hypoxia and respiratory acidosis, likely secondary to AECOPD and right middle lobe PNA. On interview, Kaya is sitting up in his ER bed wearing a BiPAP. His is present in the room. He is in mild respiratory distress. Patient states that he was being driven home by his earlier this afternoon when suddenly his heart rate spiked to 177 with an O2 sat of 90%. Shortly after his heart rate jumped again to 189 with an O2 sat of 87%. Therefore, they re-routed back to ED. He was wearing 6L O2 via nasal cannula at the time. Subjective/Events-last exam Still intubated No pain appearance Reviewed meds and labs No weaning ability today Objective Exam Vital Signs Vital Signs Date Time Temp Pulse Resp B/P (MAP) Pulse Ox O2 Delivery O2 Flow Rate FiO2 06/11/22 18:00 95 19 132/69 (90) 91 Mechanical Ventilator 35.00 06/11/22 16:20 36.4 06/11/22 16:05 35 Capillary Refill : Less Than 3 Seconds General Appearance: No Apparent Distress, WD/WN, Chronically ill, Other (sedated and intubated) Respiratory: No Accessory Muscle Use, No Respiratory Distress, Decreased Breath Sounds Cardiovascular: Regular Rate, Rhythm Results/Procedures Lab Laboratory Tests 06/11/22 03:45 Patient resulted labs reviewed. Imaging: Reviewed Imaging Report Procedures NAME: KAYA CARPENTER [facility] REC#: [id number] : 1960 ADMIT DATE: 06/05/22 PHYSICIAN: BONI TERRAZAS CRNA PROCEDURE REPORT Procedures/Interventions Procedure Start/Stop/Diagnosis Date of Procedure: Jun 08, 2022 Start Time: 11:10 Referring Physician: Saman Preprocedural Diagnosis: Respiratory Failure Brief History Called by ice house supervisor for intubation and A-Line request per Dr. Bourne for acute respiratory failure. On arrival pt opened eyes to command but was tachycardic and dyspneic on bipap. Consent obtained from . Etomidate 14mg and Anectine 120mg for RSI. Ventilated with BVM 100%. VL with ICU Glidescope grade 1 view with #8.0 ETT passing easily and secured by RT aprox 23cm at lip with tube nielsen. BS coarse b/l, +ETCO2 color change with EZcap. After intubation was completed, left wrist was prepped with chloraprep and #20 g Arrow A-line placed x2 attempt. Good blood return and waveform on monitor. Catheter secured with sterile op site and secured with tape per [employer]. Report to RN. Stop Time: 11:28 Postprocedural Diagnosis: Respiratory Failure Intubation RSI: Yes 100% pre-Ox, [id number]: Yes Intubation Method: orotracheal Videoscope used: Yes Medications: Etomidate Mask Ventilation: positive Positive End Tide CO2: Yes Breath Sounds after Intubation: bilateral-equal Intubated with ease: Yes Intubation Complications: no complications Post Intubation Xray-done: Yes Arterial Line Arterial Line Catheter: 20G Type: Radial Location: Left Procedure: prepped, draped in sterile fashion, good wave-form was obtained, patient tolerated procedure well, no immediate complications, post procedure area cleaned, post procedure dressing applied BONI TERRAZAS CRNA Jun 08, 2022 11:46 [id number] <Created by BONI TERRAZAS CRNA> <Electronically signed by BONI TERRAZAS CRNA> 06/08/22 1148 Assessment/Plan Assessment and Plan Assess & Plan/Chief Complaint Assessment: Acute on chronic respiratory failure with hypoxia and hypercapnia, requiring intubation -Required intubation for respiratory support - Day #3 -Continue IV steroids PNA with current sepsis CO2 Narcosis -Required intubation for respiratory support Atrial fibrillation with RVR -Managed by Cardiology -HR has improved post mechanical ventilation - 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
--- NOTE | 2022-06-11 07:51 | Tele-ICU Progress Note ---
Progress Note video rounds completed 61 y/o male recently discharge dwith COPD and PNA. Now readmitted with the same. Also had A fib with RVR, followed by cardiology. Converted with amiodarone. Now on diltiazem HR better controlled On Apixaban for a fib and stroke risk Vent: since 06/08 20/500/35%/6 Ab.41/63/69/39 Currently hemodynamically normal and comfortable on vent. ABGs are not favorable for weaning. May need trach Focused Exam Height, Weight, BMI Height: 5'8.00" Weight: 200lbs. 0.0oz. 90.803315cd; 30.07 BMI Method:Stated Labs Laboratory Tests 06/11/22 03:45 Results Results/Procedures Labs Laboratory Tests 06/10/22 04:16 06/11/22 03:45 Patient resulted labs reviewed. Imaging: Reviewed Imaging Report Procedures NAME: KAYA CARPENTER [facility] REC#: [id number] : 1960 ADMIT DATE: 06/05/22 PHYSICIAN: BONI TERRAZAS CRNA PROCEDURE REPORT Procedures/Interventions Procedure Start/Stop/Diagnosis Date of Procedure: Jun 08, 2022 Start Time: 11:10 Referring Physician: Saman Preprocedural Diagnosis: Respiratory Failure Brief History Called by senior housekeeper for intubation and A-Line request per Dr. Davison for acute respiratory failure. On arrival pt opened eyes to command but was tachycardic and dyspneic on bipap. Consent obtained from . Etomidate 14mg and Anectine 120mg for RSI. Ventilated with BVM 100%. VL with ICU Glidescope grade 1 view with #8.0 ETT passing easily and secured by RT aprox 23cm at lip with tube nielsen. BS coarse b/l, +ETCO2 color change with EZcap. After intubation was completed, left wrist was prepped with chloraprep and #20 g Arrow A-line placed x2 attempt. Good blood return and waveform on monitor. Catheter secured with sterile op site and secured with tape per GLASSWARE ENGRAVER. Report to RN. Stop Time: 11:28 Postprocedural Diagnosis: Respiratory Failure Intubation RSI: Yes 100% pre-Ox, [id number]: Yes Intubation Method: orotracheal Videoscope used: Yes Medications: Etomidate Mask Ventilation: positive Positive End Tide CO2: Yes Breath Sounds after Intubation: bilateral-equal Intubated with ease: Yes Intubation Complications: no complications Post Intubation Xray-done: Yes Arterial Line Arterial Line Catheter: 20G Type: Radial Location: Left Procedure: prepped, draped in sterile fashion, good wave-form was obtained, patient tolerated procedure well, no immediate complications, post procedure area cleaned, post procedure dressing applied BONI TERRAZAS CRNA Jun 08, 2022 11:46 [id number] <Created by BONI TERRAZAS CRNA> <Electronically signed by BONI TERRAZAS CRNA> 06/08/22 1148 Results Labs Labs Laboratory Tests 06/10/22 11:44: Glucometer 268H 06/10/22 18:00: Glucometer 285H 06/10/22 23:16: Glucometer 280H 06/11/22 03:45: White Blood Count 14.8H, Red Blood Count 3.54L, Hemoglobin 9.9L, Hematocrit 31L, Mean Corpuscular Volume 88, Mean Corpuscular Hemoglobin 28, Mean Corpuscular Hemoglobin Concent 32, Red Cell Distribution Width 17.2H, Platelet Count 211, Mean Platelet Volume 11.3, Immature Granulocyte % (Auto) 3, Neutrophils (%) (Auto) 94H, Lymphocytes (%) (Auto) 1L, Monocytes (%) (Auto) 2, Eosinophils (%) (Auto) 0, Basophils (%) (Auto) 0, Neutrophils # (Auto) 14.0H, Lymphocytes # (Auto) 0.1L, Monocytes # (Auto) 0.3, Eosinophils # (Auto) 0.0, Basophils # (Auto) 0.0, Immature Granulocyte # (Auto) 0.4H, Neutrophils % (Manual) 94, Lymphocytes % (Manual) 2, Monocytes % (Manual) 3, Metamyelocytes % 1, Blood Gas Puncture Site L RAD, Blood Gas Patient Temperature 37.5, Arterial Blood pH 7.41, Arterial Blood Partial Pressure CO2 63H, Arterial Blood Partial Pressure O2 69L, Arterial Blood HCO3 39H, Arterial Blood Total CO2 40.4*H, Arterial Blood Oxygen Saturation 95, Arterial Blood Base Excess 13.3H, Jeff Test YES-POS, Blood Gas Ventilator Setting YES, Blood Gas Inspired Oxygen 35%, Sodium Level 143, Potassium Level 4.6, Chloride Level 102, Carbon Dioxide Level 30, Anion Gap 11, Blood Urea Nitrogen 38H, Creatinine 0.64, Estimat Glomerular Filtration Rate 107, BUN/Creatinine Ratio 59, Glucose Level 284H, Calcium Level 7.8L, Corrected Calcium 8.8, Phosphorus Level 1.6L, Magnesium Level 1.9, Total Bilirubin 0.4, Aspartate Amino Transf (AST/SGOT) 23, Alanine Aminotransferase (ALT/SGPT) 54, Alkaline Phosphatase 48, Total Protein 5.2L, Albumin 2.7L Microbiology 06/08/22 Gram Stain - Final, Resulted 06/08/22 Sputum Culture - Preliminary, Resulted YEAST 06/05/22 Urine Culture - Final, Complete NO GROWTH ITZ CRUMP MD Jun 11, 2022 07:50
[2022-06-11] MEDS: ROFLUMILAST 500 MCG TAB (DALIRESP) PO SCH (08:09)
[2022-06-11] MEDS: APIXABAN 5 MG (ELIQUIS) TABLET PO SCH ×2 (08:09→20:14)
[2022-06-11] MEDS: DOCUSATE SODIUM 10 MG/ML 10 ML UDC (COLACE) PO SCH ×2 (08:09→20:14)
[2022-06-11] MEDS: FLUCONAZOLE 100 MG/50 ML 50 ML IV SCH (08:09)
[2022-06-11] MEDS: PANTOPRAZOLE 40 MG (PROTONIX) VIAL IV SCH (08:09)
[2022-06-11] MEDS: TAMSULOSIN 0.4 MG (FLOMAX) CAP PO SCH (08:09)
[2022-06-11] MEDS: LORATADINE (CLARITIN) 10 MG TAB PO SCH (08:09)
[2022-06-11] MEDS: SENNOSIDES 8.6 MG (SENOKOT) TAB PO SCH ×2 (08:09→20:14)
--- NOTE | 2022-06-11 08:24 | Diagnostic Imaging Report ---
EXAMINATION: Chest 1 view HISTORY: Dyspnea. COMPARISON: 06/10/2022. FINDINGS: Stable endotracheal tube with somewhat low termination approximately 1 cm above the oumou. Stable enteric tube and right PICC. Bibasilar opacities are again noted. Stable trace left pleural effusion. No pneumothorax. Stable radiopaque foreign bodies are seen overlying the left hemithorax. The cardiac silhouette is stable. There is calcified aortic atherosclerotic plaque. IMPRESSION: 1. Stable bibasilar opacities with trace left pleural effusion. 2. Stable support devices. The endotracheal tube remains somewhat low. Consider pulling back 2 to 3 cm. Dictated by: Dictated on workstation # [id number]
[2022-06-11] MEDS: PROPOFOL DRIP (ICU) 100 ML IV SCH ×2 (10:34→22:41)
[2022-06-11] MEDS: BACLOFEN 10 MG (LIORESAL) TAB PO SCH ×2 (11:27→17:17)
[2022-06-11] MEDS: MULTIVIT W/MINERALS TAB (THERAGRAN M) PO SCH (11:27)
[2022-06-11] MEDS: DexMEDEtomidine 250 ML DRIP 250 ML IV SCH (11:27)
--- NOTE | 2022-06-11 14:18 | Progress Note - Cardiology ---
Cardiology SOAP Progress Note Subjective: [facility] to [facility] and unresponsive Objective: I&O/Vital Signs 06/11/22 06/11/22 06/11/22 06/11/22 02:46 03:00 03:01 03:44 Temp 37.5 Pulse 97 97 97 Resp 20 19 B/P (MAP) 107/54 (71) 107/54 Pulse Ox 94 93 O2 Delivery Mechanical Ventilator O2 Flow Rate 35.00 FiO2 35 06/11/22 06/11/22 06/11/22 06/11/22 03:57 04:00 04:25 05:00 Pulse 97 97 98 Resp 20 20 B/P (MAP) 107/53 (71) 107/54 103/54 (70) Pulse Ox 94 93 92 O2 Delivery Mechanical Ventilator Mechanical Ventilator Mechanical Ventilator O2 Flow Rate 35.00 35.00 FiO2 35 06/11/22 06/11/22 06/11/22 06/11/22 05:56 06:00 06:47 07:00 Temp 37.5 Pulse 96 93 88 Resp 20 20 B/P (MAP) 102/51 (68) 122/67 (85) Pulse Ox 92 93 O2 Delivery Mechanical Ventilator Mechanical Ventilator O2 Flow Rate 35.00 35.00 06/11/22 06/11/22 06/11/22 06/11/22 07:48 07:51 07:57 08:00 Temp 37.5 Pulse 90 89 Resp 20 19 B/P (MAP) 119/59 (79) Pulse Ox 92 100 99 O2 Delivery Mechanical Ventilator Mechanical Ventilator O2 Flow Rate 35.00 FiO2 35 35 06/11/22 06/11/22 06/11/22 06/11/22 08:41 09:00 10:00 10:34 Pulse 90 92 94 94 Resp 19 19 B/P (MAP) 122/67 128/58 (81) 121/63 (82) 122/65 Pulse Ox 94 92 O2 Delivery Mechanical Ventilator Mechanical Ventilator O2 Flow Rate 35.00 35.00 06/11/22 06/11/22 06/11/22 06/11/22 11:00 11:11 11:27 11:50 Temp 37.4 Pulse 95 96 96 Resp 20 20 B/P (MAP) 112/57 (75) 112/57 Pulse Ox 92 92 O2 Delivery Mechanical Ventilator O2 Flow Rate 35.00 FiO2 35 06/11/22 06/11/2206/11/23 12:15 12:38 13:24 Pulse 96 91 B/P (MAP) 125/62 Pulse Ox 91 O2 Delivery Mechanical Ventilator FiO2 35 06/10/22 23:59 Intake Total 1620 ml Output Total 850 ml Balance 770 ml Weight (Pounds): 200 Weight (Ounces): 0.0 Weight (Calculated Kilograms): 90.100183 Constitutional: well-developed, well-nourished, other (sedated) Respiratory: No accessory muscle use, No respiratory distress; chest expansion is symmetric, chest is bilaterally symmetric, rhonchi (scattered), other (intubated on the vent; good air entry) Cardiovascular: irregularly irregular, tachycardia Gastrointestional: soft, audible bowel sounds Extremities: no lower extremity edema bilateral Neurologic/Psychiatric: other (unable to cooperate with neuro exam ) Skin: normal color, warm/dry; No rash on exposed areas, No ulcerations on exposed areas Results/Procedures: Labs Laboratory Tests 06/10/22 18:00: Glucometer 285H 06/10/22 23:16: Glucometer 280H 06/11/22 03:45: White Blood Count 14.8H, Red Blood Count 3.54L, Hemoglobin 9.9L, Hematocrit 31L, Mean Corpuscular Volume 88, Mean Corpuscular Hemoglobin 28, Mean Corpuscular Hemoglobin Concent 32, Red Cell Distribution Width 17.2H, Platelet Count 211, Mean Platelet Volume 11.3, Immature Granulocyte % (Auto) 3, Neutrophils (%) (Auto) 94H, Lymphocytes (%) (Auto) 1L, Monocytes (%) (Auto) 2, Eosinophils (%) (Auto) 0, Basophils (%) (Auto) 0, Neutrophils # (Auto) 14.0H, Lymphocytes # (Auto) 0.1L, Monocytes # (Auto) 0.3, Eosinophils # (Auto) 0.0, Basophils # (Auto ) 0.0, Immature Granulocyte # (Auto) 0.4H, Neutrophils % (Manual) 94, Lymphocyt es % (Manual) 2, Monocytes % (Manual) 3, Metamyelocytes % 1, Blood Gas Puncture Site L RAD, Blood Gas Patient Temperature 37.5, Arterial Blood pH 7.41, Arterial Blood Partial Pressure CO2 63H, Arterial Blood Partial Pressure O2 69L, Arterial Blood HCO3 39H, Arterial Blood Total CO2 40.4*H, Arterial Blood Oxygen Sat uration 95, Arterial Blood Base Excess 13.3H, Jeff Test YES-POS, Blood Gas Abdoulaye tilator Setting YES, Blood Gas Inspired Oxygen 35%, Sodium Level 143, Potassium Level 4.6, Chloride Level 102, Carbon Dioxide Level 30, Anion Gap 11, Blood Urea Nitrogen 38H, Creatinine 0.64, Estimat Glomerular Filtration Rate 107, BUN/Creatinine Ratio 59, Glucose Level 284H, Calcium Level 7.8L, Corrected Calcium 8.8, Phosphorus Level 1.6L, Magnesium Level 1.9, Total Bilirubin 0.4, Aspartate Amino Transf (AST/SGOT) 23, Alanine Aminotransferase (ALT/SGPT) 54, Alkaline Phosphatase 48, Total Protein 5.2L, Albumin 2.7L 06/11/22 11:24: Glucometer 291H Microbiology 06/08/22 Gram Stain - Final, Complete 06/08/22 Sputum Culture - Final, Complete YEAST YEAST#2 06/05/22 Urine Culture - Final, Complete NO GROWTH Laboratory Tests 06/10/22 04:16 06/11/22 03:45 A/P: Assessment: Respiratory failure requiring intubation on 06-08-22 New onset a-fib with RVR - first dx on 06-05-22 at [facility] ED - converted with amiodarone - 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 There is approximately 50% mid vessel stenosis of the left anterior descending. Normal global left ventricular systolic function with ejection fraction approximately 65%. 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. Has remained in sinus when on vent * Continue dilt for rate control (change to short acting formulary d/t meds needing to be crushed and given via tube) * Continue anticoag for stroke prophylaxis * Monitor and correct labs * Prognosis guarded (advanced resp failure) DEANA JONES MD FACP FACC CCDS Jun 11, 2022 14:18
[2022-06-11] MEDS: UMECLIDINIUM BROMIDE (INCRUSE ELLIPTA) 7'S IH SCH (15:18)
[2022-06-11] MEDS: RT--FLUTICASONE/SALMETEROL 232-14 (AIRDUO RespiCLICK) IH SCH ×2 (15:18→19:09)
[2022-06-11] MEDS: NS IV 1000 ML 1,000 ML IV SCH (16:52)
[2022-06-11] MEDS: MONTELUKAST 10 MG (SINGULAIR) TAB PO SCH (20:14)
[2022-06-12] MEDS: DexMEDEtomidine 250 ML DRIP 250 ML IV SCH ×2 (03:01→17:24)
[2022-06-12 03:07] VITALS: BP 131/62
[2022-06-12 03:07] LABS: BASOPHILS % (AUTO) 0 % (0-10); EOSINOPHILS % (AUTO) 0 % (0-10); HEMATOCRIT 34 % (40-54); HEMOGLOBIN 10.7 g/dL (13.3-17.7); LYMPHOCYTES # (AUTO) 0.2 10^3/uL (1.0-4.0); LYMPHOCYTES % (AUTO) 1 % (12-44); MEAN CORPUSCULAR HEMOGLOBIN 28 pg (25-34); MEAN CORPUSCULAR HGB CONC 31 g/dL (32-36); MEAN CORPUSCULAR VOLUME 89 fL (80-99); MEAN PLATELET VOLUME 11.5 fL (9.0-12.2); MONOCYTES # (AUTO) 0.6 10^3/uL (0.0-1.0); MONOCYTES % (AUTO) 3 % (0-12); NEUTROPHILS # (AUTO) 21.8 10^3/uL (1.8-7.8); NEUTROPHILS % (AUTO) 94 % (42-75); PLATELET COUNT 200 10^3/uL (130-400); WHITE BLOOD COUNT 23.3 10^3/uL (4.3-11.0)
[2022-06-12] MEDS: RT-ALBUTEROL SULF 2.5 MG/3 ML PRE-MIX VIAL INH SCH ×6 (03:07→22:25)
[2022-06-12] MEDS: RT-IPRATROPIUM (ATROVENT) 0.5MG/2.5ML AMP IH SCH ×6 (03:07→22:25)
[2022-06-12 03:20] LABS: ALBUMIN 2.7 GM/DL (3.2-4.5); POTASSIUM 4.7 MMOL/L (3.6-5.0)
[2022-06-12 03:21] LABS: CALCIUM 7.8 MG/DL (8.5-10.1)
[2022-06-12 03:23] LABS: TOTAL PROTEIN 5.1 GM/DL (6.4-8.2)
[2022-06-12 03:25] LABS: BILIRUBIN,TOTAL 0.4 MG/DL (0.1-1.0)
[2022-06-12 03:26] LABS: CREATININE SERUM 0.74 MG/DL (0.60-1.30); PHOSPHORUS 3.1 MG/DL (2.3-4.7)
[2022-06-12 03:29] LABS: MAGNESIUM 2.1 MG/DL (1.6-2.4)
[2022-06-12 03:36] LABS: ANISOCYTOSIS SLIGHT; BAND NEUTROPHILS 0 %; BASOPHILS % (MANUAL) 0 %; EOSINOPHILS % (MANUAL) 0 %; HYPOCHROMASIA SLIGHT; LYMPHOCYTES % (MANUAL) 2 %; MONOCYTES % (MANUAL) 2 %; NEUTROPHILS % (MANUAL) 96 %; TARGET CELLS SLIGHT
[2022-06-12] MEDS: POTASSIUM CL 10MEQ/50ML IVPB 50 ML IV SCH (04:12)
[2022-06-12] MEDS: MAGNESIUM 1 GM/100 ML IVPB 100 ML IV SCH (04:12)
[2022-06-12] MEDS: fentaNYL DRIP PRE-MIX 250 ML IV SCH ×3 (04:32→20:36)
[2022-06-12] MEDS: inSUlin ASPART (NovoLOG) 1 UNIT/0.01 ML (CHARGE PER UNIT) SC SCH ×4 (05:23→23:30)
[2022-06-12] MEDS: morphine IMMEDIATE RELEASE 15 MG TABLET PO SCH ×4 (05:24→23:31)
[2022-06-12] MEDS: methylPREDNISolone 125 MG (Solu-MEDROL) VIAL IVP SCH ×4 (05:25→23:31)
[2022-06-12] MEDS: KCL 20 MEQ TAB (K-DUR) PO SCH (05:25)
[2022-06-12 05:32] LABS: ABG OXYGEN SATURATION 95 % (94-100); ABG PCO2 61 MMHG (35-45); ABG PH 7.43 (7.37-7.43); ABG PO2 70 MMHG (79-93)
[2022-06-12 05:33] LABS: ALLENS TEST YES-POS; INSPIRED O2 35%; PATIENT TEMP 37.1; VENTILATOR YES
--- NOTE | 2022-06-12 06:45 | Occ Therapy Progress Note ---
Therapy Progress Note Pt is currently intubated and will need new orders when extubated until then OT to continue to monitor pt's status then will initiate treatment when new orders are received, pt is medically stable and able to participate in skilled therapy. BILL MATOS Jun 12, 2022 06:45
[2022-06-12 07:09] VITALS: BP 137/74
--- NOTE | 2022-06-12 07:30 | Physical Therapy Progress Note ---
Therapy Progress Note Pt is currently intubated and will need new orders when extubated until then PT to continue to monitor pt's status then will initiate treatment when new orders are received, pt is medically stable and able to participate in skilled therapy. GARFIELD SAUNDERS PT Jun 12, 2022 07:30
[2022-06-12] MEDS: DOCUSATE SODIUM 10 MG/ML 10 ML UDC (COLACE) PO SCH ×2 (08:08→19:50)
[2022-06-12] MEDS: APIXABAN 5 MG (ELIQUIS) TABLET PO SCH ×2 (08:08→19:51)
[2022-06-12] MEDS: FLUCONAZOLE 100 MG/50 ML 50 ML IV SCH (08:08)
[2022-06-12] MEDS: PANTOPRAZOLE 40 MG (PROTONIX) VIAL IV SCH (08:08)
[2022-06-12] MEDS: TAMSULOSIN 0.4 MG (FLOMAX) CAP PO SCH ×2 (08:08→09:10)
[2022-06-12] MEDS: SENNOSIDES 8.6 MG (SENOKOT) TAB PO SCH ×2 (08:08→19:50)
[2022-06-12] MEDS: ROFLUMILAST 500 MCG TAB (DALIRESP) PO SCH (08:08)
[2022-06-12] MEDS: LORATADINE (CLARITIN) 10 MG TAB PO SCH (08:08)
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
[2022-06-12] MEDS: RT--FLUTICASONE/SALMETEROL 232-14 (AIRDUO RespiCLICK) IH SCH ×2 (10:24→22:24)
[2022-06-12 10:25] VITALS: BP 135/81
[2022-06-12] MEDS: UMECLIDINIUM BROMIDE (INCRUSE ELLIPTA) 7'S IH SCH (10:25)
[2022-06-12] MEDS: PROPOFOL DRIP (ICU) 100 ML IV SCH ×2 (10:35→20:36)
--- NOTE | 2022-06-12 12:14 | Tele-ICU Progress Note ---
Subjective Date Seen by a Provider: Jun 12, 2022 Time Seen by a Provider: 12:14 Subjective/Events-last exam (Tele-ICU Physician , Progress Note ) Service provided via interactive audio and video telecommunications E-CARE system to a patient admitted to ICU bed in [facility]. Patient is seen today due to persistent need of ICU care Available chart/ vitals / labs / Images reviewed Video assessment done using teleICU camera, rest of exam as per RN Discussed with RN Events overnight : recived boluses Afebrile hemodynamically stable Respiratory - 35% +6 I/O = +2L VENT SETTINGS and ABG reviewed NOT CANDIDATE for SBTreviewed possible contraindications including Cardiovascular Stability /Sedation Score / FI02/PEEP / ABG / CXR/ secretions Sedation, discussed with RN, RASS -1 on fentanyl 100 propofol 15 precedex 0.8 Drips: ns 40 Pressors- no Consultants: Hospital course: (06/01) 61M admitted for PNA/ AECOPD Placed on Bipap in ER. 06/02 - 10 L o2 - d/c 06/05 (06/05)Returns with acute COPD exacerbation, rapid afib. Bipap and cardizem 06/06 - amio gtt , 6 L 06/07 - moved to bipap 27 h , started precedex 0.7 + ativan 06/08 - bipap 27 h 18/02 45 %--80 % rr 17 tv 1200 MV 20 - FAILED < INTUBATED 06/09- AC 20 500 35% +6 - ASYNCHRONOUS with vent and hypotensive with sedation , - tried SIMV - better with proloned exalation , but changed back to AC with increased WOB 06/10- AC 20 500 35% +6 PAP 30 DIFFLUCAN added 06/10 , on fentanyl 100 propofol 15 precedex 0.8 06/12- AC 20 500 35% +6 fentanyl 150 propofol 15 precedex 0.8 A/P Acute on chronic ( hypoxic and hypercapneic ) resp failure - NIPPV FAILED < INTUBATED 06/08 -- AC 20 500 35% +6 PAP 30 - steroids iv - ADDITIONAL dose 125 06/08, - ABX , nebs - cont sedation- TRY TO DECREASE -secretions moderate- better AECOPD ( with advanced severe COPD at baseline , O2 dependent 2 L O2 ) - IV steroids ( as per chart was d/c on prednisone 04/17/22 - nebs Leucocytosis with suspected PNA RLL ( negative for COVID influenza) - with recently TX for PNA -06/08 - seems worsening infiltrate slightly on right - sputum cx + yeast with long steroiud use - DIFFLUCAN added 06/10 worsenig WBC ( on steroids ) T max 37- will redo blood cx a FIB RVR - amio gtt OFF , cardizem NG -AC eliquis Echo on 06/13/18: LVEF 55-60%, PASP 30 mmHg - monitor fluid status, stop IVF consided diuresis if BP stable Anxiety -precedex + propofol +, fentanyl gtt ( and on large dose po morphine at baseline - to cont NG ) Anemia - stable Nutrition - TF - at goal 50 ml/h Hyperglycemia - with steroids - ISS Lines : R picc 06/08 , (Central Line Necessity Reviewed) [place]: 06/08 OG: Nutrition: TF Analgesia: Anxiety/ delirium VTE Prophylaxis: eliquis Stress Ulcer Prophylaxis: ppi Plans in collaboration with bedside consultants and IM MDs. Discussed with RN to reach out if any questions or concerns A total of 35 minutes of critical care time was devoted to this patient today, required to treat and/or prevent further deterioration of critical care condition ( as above ) . I am remotely monitoring this patient from another state. I am unable to do the bedside exam, and history/physical and pertinent information is taken from other notes in the computer and bedside staff. Sepsis Event Evaluation Height, Weight, BMI Height: 5'8.00" Weight: 200lbs. 0.0oz. 90.315234uj; 30.07 BMI Method:Stated Exam Exam Patient acknowledged, consented, and participated in this virtual visit which was conducted using real time audio/video Vital Signs Date Time Temp Pulse Resp B/P (MAP) Pulse Ox O2 Delivery O2 Flow Rate FiO2 06/12/22 11:00 37.4 80 19 108/68 (81) 91 Mechanical Ventilator 35.00 06/12/22 10:35 82 130/70 06/12/22 10:25 88 20 93 35 06/12/22 10:00 37.6 81 40 135/81 (99) 93 Mechanical Ventilator 35.00 06/12/22 09:00 37.5 84 35 135/72 (93) 95 Mechanical Ventilator 35.00 06/12/22 08:37 84 137/74 06/12/22 08:15 37.3 Mechanical Ventilator 35.00 06/12/22 08:00 82 19 133/76 (95) 93 Mechanical Ventilator 35.00 06/12/22 07:30 93 Mechanical Ventilator 35 06/12/22 07:30 84 137/74 06/12/22 07:29 84 06/12/22 07:09 82 20 93 35 06/12/22 07:00 83 20 137/74 (95) 93 Mechanical Ventilator 35.00 06/12/22 06:00 89 20 136/82 (100) 92 Mechanical Ventilator 35.00 06/12/22 05:00 88 20 148/73 (98) 91 Mechanical Ventilator 35.00 06/12/22 04:00 37.2 06/12/22 04:00 90 20 135/56 (82) 91 Mechanical Ventilator 35.00 06/12/22 04:00 91 Mechanical Ventilator 35 06/12/22 03:07 86 20 92 35 06/12/22 03:01 85 131/62 06/12/22 03:00 86 20 131/62 (85) 90 Mechanical Ventilator 35.00 06/12/22 02:00 87 20 129/73 (91) 90 Mechanical Ventilator 35.00 06/12/22 01:00 37.0 06/12/22 01:00 90 06/12/22 01:00 90 20 130/84 (99) 91 Mechanical Ventilator 35.00 06/12/22 00:00 106 20 128/74 (92) 91 Mechanical Ventilator 35.00 06/12/22 00:00 37.8 06/11/22 23:59 91 Mechanical Ventilator 35 06/11/22 23:42 37.8 06/11/22 23:26 37.4 90 94 35 06/11/22 23:00 93 20 113/59 (77) 90 Mechanical Ventilator 35.00 06/11/22 22:42 90 20 94 35 06/11/22 22:41 91 147/71 06/11/22 22:00 92 20 145/81 (102) 91 Mechanical Ventilator 35.00 06/11/22 21:00 92 20 140/68 (92) 91 Mechanical Ventilator 35.00 06/11/22 20:27 97 142/78 06/11/22 20:07 37.4 Mechanical Ventilator 35.00 06/11/22 20:00 96 20 140/74 (96) 92 Mechanical Ventilator 35.00 06/11/22 20:00 91 Mechanical Ventilator 35 06/11/22 19:09 93 20 92 35 06/11/22 19:00 93 20 135/77 (96) 91 Mechanical Ventilator 35.00 06/11/22 19:00 93 06/11/22 18:00 95 19 132/69 (90) 91 Mechanical Ventilator 35.00 06/11/22 17:00 95 20 145/66 (92) 93 Mechanical Ventilator 35.00 06/11/22 16:51 96 137/68 06/11/22 16:51 96 137/68 06/11/22 16:50 96 137/68 06/11/22 16:20 36.4 06/11/22 16:05 93 Mechanical Ventilator 35 06/11/22 16:00 96 19 137/68 (91) 93 Mechanical Ventilator 35.00 06/11/22 15:50 36.5 06/11/22 15:18 92 20 93 35 06/11/22 15:00 92 20 136/68 (90) 92 Mechanical Ventilator 35.00 06/11/22 14:00 90 20 132/64 (86) 92 Mechanical Ventilator 35.00 06/11/22 13:24 91 06/11/22 13:00 93 19 129/61 (83) 92 Mechanical Ventilator 35.00 06/11/22 12:38 96 125/62 06/11/22 12:15 91 Mechanical Ventilator 35 I & O 06/12/22 07:00 Intake Total 3210 ml Output Total 1975 ml Balance 1235 ml Height & Weight Height: 5'8.00" Weight: 200lbs. 0.0oz. 90.956358kg; 30.07 BMI Method:Stated General Appearance: No Apparent Distress, WD/WN, Chronically ill, Other (sedated and intubated) HEENT: Other (Eyes closed - sedated) Neck: Non Tender, Supple Respiratory: No Accessory Muscle Use, No Respiratory Distress, Decreased Breath Sounds Cardiovascular: Regular Rate, Rhythm Capillary Refill: Less Than 3 Seconds Peripheral Pulses: 2+ Radial Pulses (R), 2+ Radial Pulses (L) Gastrointestinal: normal bowel sounds, non tender, soft Extremity: Other (bilateral LE sequential compression devices in place / Arterial Line in left wrist) Neurologic/Psychiatric: Other (Sedated) Skin: Ecchymosis (bilateral arms) Results Lab Laboratory Tests 06/11/22 03:45 06/12/22 03:00 Assessment/Plan Assessment/Plan 1 NATHEN DAMIAN MD Jun 12, 2022 12:14
[2022-06-12] MEDS: BACLOFEN 10 MG (LIORESAL) TAB PO SCH ×2 (13:10→18:11)
[2022-06-12] MEDS: MULTIVIT W/MINERALS TAB (THERAGRAN M) PO SCH (13:10)
[2022-06-12 14:39] VITALS: BP 119/67
[2022-06-12 18:30] VITALS: BP 128/73
[2022-06-12] MEDS: MONTELUKAST 10 MG (SINGULAIR) TAB PO SCH (19:50)
--- NOTE | 2022-06-12 20:40 | Progress Note ---
Subjective Subjective/Events-last exam Patient intubated and sedated, will open eyes to name but not following directions Review of Systems Unable to review Objective Exam Last Set of Vital Signs Vital Signs Date Time Temp Pulse Resp B/P (MAP) Pulse Ox O2 Delivery O2 Flow Rate FiO2 06/12/22 19:40 92 Mechanical Ventilator 35 06/12/22 19:00 37.2 80 20 125/71 (89) 35.00 Capillary Refill : Less Than 3 Seconds I&O Intake and Output 06/12/22 00:00 Intake Total 3580 ml Output Total 2075 ml Balance 1505 ml Intake Oral 0 ml IV Total 1600 ml Tube Feeding 1200 ml Enteral Flush 300 ml Other 480 ml Output Urine Total 2075 ml General: Other (Opens eyes to name, does not follow commands) Lungs: Other (diminished breath sounds, end exp wheezing) Heart: Regular Rate Abdomen: Normal Bowel Sounds, Soft, No Tenderness Extremities: No Edema, No Tenderness/Swelling Neuro: Normal Speech, Cranial Nerves 3-12 NL Results/Procedures Lab Laboratory Tests 06/11/22 23:09: Glucometer 309H 06/12/22 03:00: White Blood Count 23.3H, Red Blood Count 3.88L, Hemoglobin 10.7L, Hematocrit 34L , Mean Corpuscular Volume 89, Mean Corpuscular Hemoglobin 28, Mean Corpuscular Hemoglobin Concent 31L, Red Cell Distribution Width 17.6H, Platelet Count 200, Mean Platelet Volume 11.5, Immature Granulocyte % (Auto) 3, Neutrophils (%) (Au to) 94H, Lymphocytes (%) (Auto) 1L, Monocytes (%) (Auto) 3, Eosinophils (%) (Auto) 0, Basophils (%) (Auto) 0, Neutrophils # (Auto) 21.8H, Lymphocytes # (Auto) 0.2L, Monocytes # (Auto) 0.6, Eosinophils # (Auto) 0.0, Basophils # (Auto) 0.0, Immature Granulocyte # (Auto) 0.6H, Neutrophils % (Manual) 96, Lymphocytes % (Manual) 2, Monocytes % (Manual) 2, Eosinophils % (Manual) 0, Basophils % (Manual) 0, Band Neutrophils 0, Hypochromasia SLIGHT, Anisocytosis SLIGHT, Target Cells SLIGHT, Sodium Level 143, Potassium Level 4.7, Chloride Level 101, Carbon Dioxide Level 33H, Anion Gap 9, Blood Urea Nitrogen 42H, Creatinine 0.74, Estimat Glomerular Filtration Rate 102, BUN/Creatinine Ratio 57, Glucose Level 320H, Calcium Level 7.8L, Corrected Calcium 8.8, Phosphorus Level 3.1, Magnesium Level 2.1, Total Bilirubin 0.4, Aspartate Amino Transf (AST/SGOT) 20, Alanine Aminotransferase (ALT/SGPT) 51, Alkaline Phosphatase 50, Total Protein 5.1L, Albumin 2.7L, Triglycerides Level 160H 06/12/22 05:09: Glucometer 330H 06/12/22 05:30: Blood Gas Puncture Site RRAD, Blood Gas Patient Temperature 37.1, Arterial Blood pH 7.43, Arterial Blood Partial Pressure CO2 61H, Arterial Blood Partial Pressure O2 70L, Arterial Blood HCO3 39H, Arterial Blood Total CO2 41.0*H, Arterial Blood Oxygen Saturation 95, Arterial Blood Base Excess 14.0H, Jeff Test YES-POS, Blood Gas Ventilator Setting YES, Blood Gas Inspired Oxygen 35% 06/12/22 11:33: Glucometer 313H 06/12/22 17:56: Glucometer 244H Microbiology 06/08/22 Gram Stain - Final, Complete 06/08/22 Sputum Culture - Final, Complete YEAST YEAST#2 06/05/22 Urine Culture - Final, Complete NO GROWTH Radiology NAME: KAYA CARPENTER [facility] REC#: [id number] PT STATUS: REG ER : 1960 PHYSICIAN: EDGARDO FRANCE APRN ADMIT DATE: 06/05/22/ER Signed Date of Exam:06/05/22 CHEST 1 VIEW, AP/PA ONLY EXAMINATION: Chest 1 view HISTORY: Shortness of breath. COMPARISON: 06/01/2022. FINDINGS: Hazy opacities are seen in the left lung base. Chronic fibrotic changes are seen in both lung bases. The lungs are hyperinflated. The heart size is normal. There is calcified aortic atherosclerotic plaque. Radiopaque material is seen in the left chest, similar to the prior exam. IMPRESSION: 1. Hazy opacities in the left lung base, which may represent atelectasis or infection. 2. Hyperinflated lung volumes with chronic fibrotic changes. Dictated by: Dictated on workstation # [id number] Dict: 06/05/22 1503 Trans: 06/05/22 1516 [id number] Interpreted by: AN MELENDEZ DO Electronically signed by: AN MELENDEZ DO 06/05/22 1516 Assessment/Plan Assessment/Plan (1) Sepsis Status: Acute Assessment & Plan: 06/12: Continue IV antibiotics, IVFs, eICU managing vent Qualifiers: Qualified Codes: A41.9 - Sepsis, unspecified organism; R65.20 - Severe sepsis without septic shock; J96.01 - Acute respiratory failure with hypoxia (2) Acute on chronic respiratory failure with hypoxia and hypercapnia Status: Acute (3) COPD exacerbation Status: Acute (4) Pneumonia Status: Acute (5) Atrial fibrillation with RVR Status: Chronic Assessment & Plan: 06/12: Cardiology consulted, appreciate recommendations RO HALL MD Jun 12, 2022 20:40
[2022-06-12 22:25] VITALS: BP 139/85
[2022-06-12] MEDS: ACETAMINOPHEN 325 MG TABLET PO PRN (23:31)
[2022-06-13 02:38] LABS: BASOPHILS # (AUTO) 0.1 10^3/uL (0.0-0.1); BASOPHILS % (AUTO) 0 % (0-10); EOSINOPHILS % (AUTO) 0 % (0-10); HEMATOCRIT 39 % (40-54); HEMOGLOBIN 12.1 g/dL (13.3-17.7); LYMPHOCYTES # (AUTO) 0.1 10^3/uL (1.0-4.0); LYMPHOCYTES % (AUTO) 0 % (12-44); MEAN CORPUSCULAR HEMOGLOBIN 28 pg (25-34); MEAN CORPUSCULAR HGB CONC 31 g/dL (32-36); MEAN CORPUSCULAR VOLUME 89 fL (80-99); MEAN PLATELET VOLUME 11.3 fL (9.0-12.2); MONOCYTES # (AUTO) 0.8 10^3/uL (0.0-1.0); MONOCYTES % (AUTO) 2 % (0-12); NEUTROPHILS # (AUTO) 41.3 10^3/uL (1.8-7.8); NEUTROPHILS % (AUTO) 95 % (42-75); PLATELET COUNT 269 10^3/uL (130-400)
[2022-06-13 02:39] LABS: ABG BASE EXCESS 12.1 MMOL/L (-2.5-2.5); ABG OXYGEN SATURATION 95 % (94-100); ABG PCO2 67 MMHG (35-45); ABG PH 7.37 (7.37-7.43); ABG PO2 79 MMHG (79-93); ABG TCO2 39.8 MMOL/L (21.0-31.0)
[2022-06-13 02:41] LABS: ALLENS TEST YES-POS; INSPIRED O2 40%; PATIENT TEMP 37.2; VENTILATOR YES
[2022-06-13 02:43] LABS: WHITE BLOOD COUNT 43.7 10^3/uL (4.3-11.0)
[2022-06-13 02:45] VITALS: BP 164/103
[2022-06-13] MEDS: RT-ALBUTEROL SULF 2.5 MG/3 ML PRE-MIX VIAL INH SCH ×6 (02:45→22:54)
[2022-06-13] MEDS: RT-IPRATROPIUM (ATROVENT) 0.5MG/2.5ML AMP IH SCH ×6 (02:45→22:54)
[2022-06-13 02:47] LABS: ALBUMIN 2.9 GM/DL (3.2-4.5); POTASSIUM 4.8 MMOL/L (3.6-5.0)
[2022-06-13 02:49] LABS: CALCIUM 8.1 MG/DL (8.5-10.1)
[2022-06-13 02:50] LABS: TOTAL PROTEIN 5.3 GM/DL (6.4-8.2)
[2022-06-13 02:52] LABS: BILIRUBIN,TOTAL 0.5 MG/DL (0.1-1.0)
[2022-06-13 02:53] LABS: CREATININE SERUM 0.73 MG/DL (0.60-1.30); PHOSPHORUS 3.8 MG/DL (2.3-4.7)
[2022-06-13 02:57] LABS: MAGNESIUM 2.2 MG/DL (1.6-2.4)
[2022-06-13] MEDS: KCL 20 MEQ TAB (K-DUR) PO SCH (03:02)
[2022-06-13] MEDS: POTASSIUM CL 10MEQ/50ML IVPB 50 ML IV SCH (03:02)
[2022-06-13] MEDS: MAGNESIUM 1 GM/100 ML IVPB 100 ML IV SCH (03:02)
[2022-06-13 03:28] LABS: NEUTROPHILS % (MANUAL) 97 %
[2022-06-13 03:29] LABS: METAMYELOCYTES % 2 %; MONOCYTES % (MANUAL) 1 %
[2022-06-13] MEDS ORDERED: meTOprolol 5 MG/5 ML (LOPRESSOR) VIAL IV ONE (03:30)
[2022-06-13] MEDS ORDERED: meTOprolol 5 MG/5 ML (LOPRESSOR) VIAL ONE (03:37)
[2022-06-13] MEDS: fentaNYL DRIP PRE-MIX 250 ML IV SCH ×3 (04:59→21:08)
[2022-06-13] MEDS: morphine IMMEDIATE RELEASE 15 MG TABLET PO SCH ×4 (05:03→23:40)
[2022-06-13] MEDS: methylPREDNISolone 125 MG (Solu-MEDROL) VIAL IVP SCH ×4 (05:03→23:39)
[2022-06-13] MEDS: inSUlin ASPART (NovoLOG) 1 UNIT/0.01 ML (CHARGE PER UNIT) SC SCH ×4 (05:04→23:46)
[2022-06-13] MEDS: PROPOFOL DRIP (ICU) 100 ML IV SCH ×2 (05:14→23:39)
[2022-06-13 06:10] VITALS: BP 124/78
[2022-06-13] MEDS: RT--FLUTICASONE/SALMETEROL 232-14 (AIRDUO RespiCLICK) IH SCH ×2 (06:10→22:54)
--- NOTE | 2022-06-13 06:47 | Occ Therapy Progress Note ---
Therapy Progress Note Pt is currently intubated and will need new orders when extubated until then OT to continue to monitor pt's status then will initiate treatment when new orders are received, pt is medically stable and able to participate in skilled therapy. BILL MATOS Jun 13, 2022 06:47
--- NOTE | 2022-06-13 07:17 | Physical Therapy Progress Note ---
Therapy Progress Note Patient remains sedated and intubated. PT to remove patient from list due to continued declined in medical status and PT will require new orders when patient is deemed medical stable and able to actively participate with skilled therapy. GARFIELD SAUNDERS PT Jun 13, 2022 07:17
[2022-06-13] MEDS: SENNOSIDES 8.6 MG (SENOKOT) TAB PO SCH ×2 (08:03→20:57)
[2022-06-13] MEDS: TAMSULOSIN 0.4 MG (FLOMAX) CAP PO SCH (08:03)
[2022-06-13] MEDS: APIXABAN 5 MG (ELIQUIS) TABLET PO SCH ×2 (08:03→20:57)
[2022-06-13] MEDS: ROFLUMILAST 500 MCG TAB (DALIRESP) PO SCH (08:03)
[2022-06-13] MEDS: DOCUSATE SODIUM 10 MG/ML 10 ML UDC (COLACE) PO SCH ×2 (08:03→20:56)
[2022-06-13] MEDS: LORATADINE (CLARITIN) 10 MG TAB PO SCH (08:03)
[2022-06-13] MEDS: PANTOPRAZOLE 40 MG (PROTONIX) VIAL IV SCH (08:03)
[2022-06-13] MEDS: FLUCONAZOLE 100 MG/50 ML 50 ML IV SCH (08:04)
[2022-06-13] MEDS: ACETAMINOPHEN 325 MG TABLET PO PRN ×3 (08:19→23:39)
[2022-06-13] MEDS: DexMEDEtomidine 250 ML DRIP 250 ML IV SCH ×2 (08:20→20:58)
[2022-06-13] MEDS ORDERED: VANCOMYCIN INJECTION 0.1 MG in NS (IVPB) 250 ML IV SCH (10:45)
[2022-06-13 10:58] VITALS: BP 108/77
--- NOTE | 2022-06-13 11:33 | Progress Note ---
Subjective Subjective/Events-last exam Patient intubated and sedated. No ON events. This AM WBC count jumped up to over 40 thousand and his temperature curve has increased. Review of Systems Unable to review Objective Exam Last Set of Vital Signs Vital Signs Date Time Temp Pulse Resp B/P (MAP) Pulse Ox O2 Delivery O2 Flow Rate FiO2 06/13/22 09:14 103 124/78 06/13/22 09:10 37.4 06/13/22 09:00 21 96 Mechanical Ventilator 50.00 06/13/22 08:00 50 Capillary Refill : Less Than 3 Seconds I&O Intake and Output 06/13/22 00:00 Intake Total 2920 ml Output Total 1710 ml Balance 1210 ml Intake Oral 0 ml IV Total 750 ml Tube Feeding 1150 ml Enteral Flush 360 ml Other 660 ml Output Urine Total 1710 ml General: Other (Intubated and sedated) Lungs: Other (Diminished breath sounds, no crackles) Heart: Regular Rate, No Murmurs Abdomen: Soft Extremities: No Edema Results/Procedures Lab Laboratory Tests 06/12/22 11:33: Glucometer 313H 06/12/22 17:56: Glucometer 244H 06/12/22 23:25: Glucometer 286H 06/13/22 02:30: White Blood Count 43.7*H, Red Blood Count 4.33, Hemoglobin 12.1L, Hematocrit 39L , Mean Corpuscular Volume 89, Mean Corpuscular Hemoglobin 28, Mean Corpuscular Hemoglobin Concent 31L, Red Cell Distribution Width 17.4H, Platelet Count 269, Mean Platelet Volume 11.3, Immature Granulocyte % (Auto) 3, Neutrophils (%) (Auto) 95H, Lymphocytes (%) (Auto) 0L, Monocytes (%) (Auto) 2, Eosinophils (%) (Auto) 0, Basophils (%) (Auto) 0, Neutrophils # (Auto) 41.3H, Lymphocytes # (Auto) 0.1L, Monocytes # (Auto) 0.8, Eosinophils # (Auto) 0.0, Basophils # (Auto) 0.1, Immature Granulocyte # (Auto) 1.4H, Neutrophils % (Manual) 97, Monocytes % (Manual) 1, Metamyelocytes % 2, Blood Gas Puncture Site R RAD, Blood Gas Patient Temperature 37.2, Arterial Blood pH 7.37, Arterial Blood Partial Pressure CO2 67H, Arterial Blood Partial Pressure O2 79, Arterial Blood HCO3 38H , Arterial Blood Total CO2 39.8H, Arterial Blood Oxygen Saturation 95, Arterial Blood Base Excess 12.1H, Jeff Test YES-POS, Blood Gas Ventilator Setting YES, Blood Gas Inspired Oxygen 40%, Sodium Level 146H, Potassium Level 4.8, Chloride Level 102, Carbon Dioxide Level 31, Anion Gap 13, Blood Urea Nitrogen 53H, Creatinine 0.73, Estimat Glomerular Filtration Rate 103, BUN/Creatinine Ratio 73, Glucose Level 313H, Calcium Level 8.1L, Corrected Calcium 9.0, Phosphorus Level 3.8, Magnesium Level 2.2, Total Bilirubin 0.5, Aspartate Amino Transf (AST/SGOT) 47H, Alanine Aminotransferase (ALT/SGPT) 96H, Alkaline Phosphatase 56, Total Protein 5.3L, Albumin 2.9L 06/13/22 05:01: Glucometer 307H 06/13/22 11:21: Glucometer 260H Microbiology 06/08/22 Gram Stain - Final, Complete 06/08/22 Sputum Culture - Final, Complete YEAST YEAST#2 06/05/22 Urine Culture - Final, Complete NO GROWTH Radiology NAME: KAYA CARPENTER [facility] REC#: [id number] PT STATUS: REG ER : 1960 PHYSICIAN: EDGARDO FRANCE APRN ADMIT DATE: 06/05/22/ER Signed Date of Exam:06/05/22 CHEST 1 VIEW, AP/PA ONLY EXAMINATION: Chest 1 view HISTORY: Shortness of breath. COMPARISON: 06/01/2022. FINDINGS: Hazy opacities are seen in the left lung base. Chronic fibrotic changes are seen in both lung bases. The lungs are hyperinflated. The heart size is normal. There is calcified aortic atherosclerotic plaque. Radiopaque material is seen in the left chest, similar to the prior exam. IMPRESSION: 1. Hazy opacities in the left lung base, which may represent atelectasis or infection. 2. Hyperinflated lung volumes with chronic fibrotic changes. Dictated by: Dictated on workstation # [id number] Dict: 06/05/22 1503 Trans: 06/05/22 1516 [id number] Interpreted by: AN MELENDEZ DO Electronically signed by: AN MELENDEZ DO 06/05/22 1516 Assessment/Plan Assessment/Plan (1) Sepsis Status: Acute Assessment & Plan: 06/12: Continue IV antibiotics, IVFs, eICU managing vent 06/13: Repeat blood cultures today, start cefepime and Vanc due to jump in WBC Qualifiers: Qualified Codes: A41.9 - Sepsis, unspecified organism; R65.20 - Severe sepsis without septic shock; J96.01 - Acute respiratory failure with hypoxia (2) Acute on chronic respiratory failure with hypoxia and hypercapnia Status: Acute Assessment & Plan: 06/13: eICU for vent management (3) COPD exacerbation Status: Acute (4) Pneumonia Status: Acute (5) Atrial fibrillation with RVR Status: Chronic Assessment & Plan: 06/12: Cardiology consulted, appreciate recommendations (6) Discharge planning issues Assessment & Plan: 06/13: Spoke with family today in meeting. 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 Patient is still guarded. Patient may need LTAC placement as he will be a long titration. At this time they would like to keep him Full Code RO HALL MD Jun 13, 2022 11:33
--- NOTE | 2022-06-13 11:37 | Diagnostic Imaging Report ---
CHEST 1 VIEW, AP/PA ONLY Indication: COPD, intubation Comparison: 06/12/2022 Findings: Stable ET and enteric tubes. Stable right PICC. Patchy opacities in the bilateral lung bases are unchanged. Small layering left pleural effusion is stable. No pneumothorax. Stable cardiac silhouette. Impression: 1. Stable support devices. 2. Unchanged scattered pulmonary opacities and small left pleural effusion. Dictated by: Dictated on workstation # [id number]
[2022-06-13] MEDS ORDERED: VANCOMYCIN 1,750 MG/NS 500 ML IVPB IV NR ×2 (12:00)
[2022-06-13] MEDS: MULTIVIT W/MINERALS TAB (THERAGRAN M) PO SCH (12:07)
[2022-06-13] MEDS: BACLOFEN 10 MG (LIORESAL) TAB PO SCH ×2 (12:07→18:43)
[2022-06-13] MEDS: CEFEPIME INJECTION 1,000 MG in NS (IVPB) 50 ML IV SCH ×3 (12:08→23:39)
--- NOTE | 2022-06-13 13:13 | Tele-ICU Progress Note ---
Subjective Date Seen by a Provider: Jun 13, 2022 Time Seen by a Provider: 13:12 Subjective/Events-last exam (Tele-ICU Physician , Progress Note ) Service provided via interactive audio and video telecommunications E-CARE system to a patient admitted to ICU bed in [facility]. Patient is seen today due to persistent need of ICU care Available chart/ vitals / labs / Images reviewed Video assessment done using teleICU camera, rest of exam as per RN Discussed with RN Events overnight : recived boluses Afebrile hemodynamically stable Respiratory - 35% +6 I/O = +2L VENT SETTINGS and ABG reviewed NOT CANDIDATE for SBTreviewed possible contraindications including Cardiovascular Stability /Sedation Score / FI02/PEEP / ABG / CXR/ secretions Sedation, discussed with RN, RASS -1 on fentanyl 100 propofol 15 precedex 0.8 Drips: ns 40 Pressors- no Consultants: Hospital course: (06/01) 61M admitted for PNA/ AECOPD Placed on Bipap in ER. 06/02 - 10 L o2 - d/c 06/05 (06/05)Returns with acute COPD exacerbation, rapid afib. Bipap and cardizem 06/06 - amio gtt , 6 L 06/07 - moved to bipap 27 h , started precedex 0.7 + ativan 06/08 - bipap 27 h 18/02 45 %--80 % rr 17 tv 1200 MV 20 - FAILED < INTUBATED 06/09- AC 20 500 35% +6 - ASYNCHRONOUS with vent and hypotensive with sedation , - tried SIMV - better with proloned exalation , but changed back to AC with increased WOB 06/10- AC 20 500 35% +6 PAP 30 DIFFLUCAN added 06/10 , on fentanyl 100 propofol 15 precedex 0.8 06/12- AC 20 500 35% +6 fentanyl 150 propofol 15 precedex 0.8 06/13 - AC 20 500 35% +6 fentanyl 150 propofol 15 precedex 0.8 A/P Acute on chronic ( hypoxic and hypercapneic ) resp failure - NIPPV FAILED < INTUBATED 06/08 -- AC 20 500 35% +6 PAP 30 - steroids iv - ADDITIONAL dose 125 06/08, - ABX , nebs - cont sedation- TRY TO DECREASE -secretions moderate- better AECOPD ( with advanced severe COPD at baseline , O2 dependent 2 L O2 ) - IV steroids ( as per chart was d/c on prednisone 04/17/22 - nebs Leucocytosis with suspected PNA RLL ( negative for COVID influenza) - with recently TX for PNA -06/08 - seems worsening infiltrate slightly on right - sputum cx + yeast with long steroiud use - DIFFLUCAN added 06/10 2130 worsenig WBC T max 37- will redo blood cx 06/13- WBC 40 K - added vanco /cefepime , cx repeated a FIB RVR - amio gtt OFF , cardizem NG -AC eliquis Echo on 06/13/18: LVEF 55-60%, PASP 30 mmHg - monitor fluid status, stop IVF consided diuresis if BP stable Anxiety -precedex + propofol +, fentanyl gtt ( and on large dose po morphine at baseline - to cont NG ) Anemia - stable Nutrition - TF - at goal 50 ml/h Hyperglycemia - with steroids - ISS , added levemir 10 bid 06/13 Lines : R picc 06/08 , (Central Line Necessity Reviewed) [place]: 06/08 OG: Nutrition: TF Analgesia: Anxiety/ delirium VTE Prophylaxis: eliquis Stress Ulcer Prophylaxis: ppi Plans in collaboration with bedside consultants and IM MDs. Discussed with RN to reach out if any questions or concerns A total of 35 minutes of critical care time was devoted to this patient today, required to treat and/or prevent further deterioration of critical care condition ( as above ) . I am remotely monitoring this patient from another state. I am unable to do the bedside exam, and history/physical and pertinent information is taken from other notes in the computer and bedside staff. Sepsis Event Evaluation Height, Weight, BMI Height: 5'8.00" Weight: 200lbs. 0.0oz. 90.800149cs; 30.64 BMI Method:Stated Exam Exam Patient acknowledged, consented, and participated in this virtual visit which was conducted using real time audio/video Vital Signs Date Time Temp Pulse Resp B/P (MAP) Pulse Ox O2 Delivery O2 Flow Rate FiO2 06/13/22 12:19 109 108/77 06/13/22 11:27 37.3 06/13/22 11:00 37.3 109 9 108/77 (87) 97 Mechanical Ventilator 50.00 06/13/22 10:58 104 20 97 40 06/13/22 10:00 36.8 123 21 130/68 (88) 96 Mechanical Ventilator 50.00 06/13/22 09:14 103 124/78 06/13/22 09:10 37.4 06/13/22 09:00 38.3 112 21 124/75 (91) 96 Mechanical Ventilator 50.00 06/13/22 08:59 103 124/78 06/13/22 08:20 103 124/78 06/13/22 08:19 38.4 06/13/22 08:00 38.2 104 22 123/80 (94) 96 Mechanical Ventilator 50.00 06/13/22 08:00 96 Mechanical Ventilator 50 06/13/22 07:44 38.3 06/13/22 07:31 103 06/13/22 07:00 38.2 102 16 115/83 (94) 97 Mechanical Ventilator 50.00 06/13/22 06:10 103 20 95 40 06/13/22 06:00 37.7 101 20 124/78 (94) 95 Mechanical Ventilator 50.00 06/13/22 05:14 105 126/77 06/13/22 05:00 37.9 105 20 126/77 (94) 95 Mechanical Ventilator 50.00 06/13/22 04:59 107 114/88 06/13/22 04:00 37.8 103 20 112/79 (90) 95 Mechanical Ventilator 50.00 06/13/22 03:40 95 Mechanical Ventilator 50 06/13/22 03:40 37.8 Mechanical Ventilator 50.00 06/13/22 03:00 37.7 152 20 166/77 (106) 94 Mechanical Ventilator 50.00 06/13/22 02:50 37.7 151 20 91 Mechanical Ventilator 50.00 06/13/22 02:45 135 21 92 40 06/13/22 02:00 37.0 116 26 141/76 (97) 91 Mechanical Ventilator 40.00 06/13/22 01:50 154 06/13/22 01:00 37.1 122 20 134/96 (105) 91 Mechanical Ventilator 40.00 06/13/22 01:00 122 06/13/22 00:20 94 139/85 06/13/22 00:19 94 139/85 06/13/22 00:19 37.9 06/13/22 00:00 37.2 113 20 132/79 (89) 93 Mechanical Ventilator 40.00 06/12/22 23:31 38.0 06/12/22 23:25 93 Mechanical Ventilator 40 06/12/22 23:15 38.0 06/12/22 23:00 37.6 114 20 145/104 (127) 93 Mechanical Ventilator 40.00 06/12/22 22:25 94 20 93 40 06/12/22 22:00 37.6 90 20 139/85 (113) 93 Mechanical Ventilator 40.00 06/12/22 21:22 89 108/73 06/12/22 21:09 Mechanical Ventilator 40.00 06/12/22 21:00 37.2 86 20 108/73 (89) 89 Mechanical Ventilator 35.00 06/12/22 20:36 87 140/87 06/12/22 20:36 87 140/87 06/12/22 20:00 37.0 06/12/22 20:00 37.3 84 20 131/77 (93) 91 Mechanical Ventilator 35.00 06/12/22 19:40 92 Mechanical Ventilator 35 06/12/22 19:00 37.2 80 20 125/71 (89) 92 Mechanical Ventilator 35.00 06/12/22 19:00 83 06/12/22 18:30 80 20 92 35 06/12/22 18:00 37.4 81 20 135/79 (97) 93 Mechanical Ventilator 35.00 06/12/22 17:24 87 127/71 06/12/22 17:00 37.4 85 19 122/69 (86) 92 Mechanical Ventilator 35.00 06/12/22 16:20 37.3 06/12/22 16:19 87 127/71 06/12/22 16:00 37.5 87 19 127/71 (89) 93 Mechanical Ventilator 35.00 06/12/22 15:29 93 Mechanical Ventilator 35 06/12/22 15:00 37.3 81 19 124/71 (88) 92 Mechanical Ventilator 35.00 06/12/22 14:39 82 20 92 35 06/12/22 14:35 82 119/67 06/12/22 14:00 37.4 81 19 121/64 (83) 92 Mechanical Ventilator 35.00 06/12/22 13:26 82 I & O 06/13/22 07:00 Intake Total 3285 ml Output Total 1685 ml Balance 1600 ml Height & Weight Height: 5'8.00" Weight: 200lbs. 0.0oz. 90.277804ms; 30.64 BMI Method:Stated General Appearance: No Apparent Distress, WD/WN, Chronically ill, Other (sedated and intubated) HEENT: Other (Eyes closed - sedated) Neck: Non Tender, Supple Respiratory: No Accessory Muscle Use, No Respiratory Distress, Decreased Breath Sounds Cardiovascular: Regular Rate, Rhythm Capillary Refill: Less Than 3 Seconds Peripheral Pulses: 2+ Radial Pulses (R), 2+ Radial Pulses (L) Gastrointestinal: normal bowel sounds, non tender, soft Extremity: Other (bilateral LE sequential compression devices in place / Arterial Line in left wrist) Neurologic/Psychiatric: Other (Sedated) Skin: Ecchymosis (bilateral arms) Results Lab Laboratory Tests 06/12/22 03:00 06/13/22 02:30 Assessment/Plan Assessment/Plan 1 NATHEN DAMIAN MD Jun 13, 2022 13:13
[2022-06-13 15:00] VITALS: BP 140/71
[2022-06-13 18:52] VITALS: BP 104/74
[2022-06-13] MEDS: MONTELUKAST 10 MG (SINGULAIR) TAB PO SCH (20:57)
[2022-06-13 22:55] VITALS: BP 117/76
[2022-06-14] MEDS ORDERED: VANCOMYCIN 1250 MG/NS 250 ML IVPB IV SCH ×2
[2022-06-14] MEDS: RT-ALBUTEROL SULF 2.5 MG/3 ML PRE-MIX VIAL INH SCH ×6 (03:24→22:31)
[2022-06-14] MEDS: RT-IPRATROPIUM (ATROVENT) 0.5MG/2.5ML AMP IH SCH ×6 (03:24→22:31)
[2022-06-14 03:25] VITALS: BP 99/87
[2022-06-14 04:15] LABS: ABG BASE EXCESS 13.2 MMOL/L (-2.5-2.5); ABG OXYGEN SATURATION 93 % (94-100); ABG PCO2 62 MMHG (35-45); ABG PH 7.41 (7.37-7.43); ABG PO2 65 MMHG (79-93)
[2022-06-14 04:17] LABS: ALLENS TEST YES-POS; INSPIRED O2 50%; VENTILATOR YES
[2022-06-14] MEDS: ACETAMINOPHEN 325 MG TABLET PO PRN (04:17)
[2022-06-14 04:18] LABS: ABG TCO2 40.4 MMOL/L (21.0-31.0)
[2022-06-14 04:20] LABS: BASOPHILS # (AUTO) 0.1 10^3/uL (0.0-0.1); BASOPHILS % (AUTO) 0 % (0-10); EOSINOPHILS % (AUTO) 0 % (0-10); HEMATOCRIT 33 % (40-54); HEMOGLOBIN 10.4 g/dL (13.3-17.7); LYMPHOCYTES # (AUTO) 0.1 10^3/uL (1.0-4.0); LYMPHOCYTES % (AUTO) 0 % (12-44); MEAN CORPUSCULAR HEMOGLOBIN 28 pg (25-34); MEAN CORPUSCULAR HGB CONC 31 g/dL (32-36); MEAN CORPUSCULAR VOLUME 90 fL (80-99); MEAN PLATELET VOLUME 12.3 fL (9.0-12.2); MONOCYTES # (AUTO) 0.7 10^3/uL (0.0-1.0); MONOCYTES % (AUTO) 2 % (0-12); NEUTROPHILS # (AUTO) 29.9 10^3/uL (1.8-7.8); NEUTROPHILS % (AUTO) 95 % (42-75); PLATELET COUNT 161 10^3/uL (130-400)
[2022-06-14 04:26] LABS: WHITE BLOOD COUNT 31.4 10^3/uL (4.3-11.0)
[2022-06-14 04:52] LABS: ALBUMIN 2.4 GM/DL (3.2-4.5)
[2022-06-14 04:53] LABS: POTASSIUM 4.7 MMOL/L (3.6-5.0)
[2022-06-14 04:54] LABS: CALCIUM 7.3 MG/DL (8.5-10.1)
[2022-06-14 04:55] LABS: TOTAL PROTEIN 4.7 GM/DL (6.4-8.2)
[2022-06-14 04:57] LABS: BILIRUBIN,TOTAL 0.6 MG/DL (0.1-1.0)
[2022-06-14 04:58] LABS: PHOSPHORUS 3.7 MG/DL (2.3-4.7)
[2022-06-14 04:59] LABS: CREATININE SERUM 0.64 MG/DL (0.60-1.30)
[2022-06-14 05:01] LABS: MAGNESIUM 1.9 MG/DL (1.6-2.4)
[2022-06-14] MEDS: MAGNESIUM 1 GM/100 ML IVPB 100 ML IV SCH (05:39)
[2022-06-14] MEDS: KCL 20 MEQ TAB (K-DUR) PO SCH (05:39)
[2022-06-14] MEDS: POTASSIUM CL 10MEQ/50ML IVPB 50 ML IV SCH (05:39)
[2022-06-14] MEDS: CEFEPIME INJECTION 1,000 MG in NS (IVPB) 50 ML IV SCH ×4 (05:40→22:24)
[2022-06-14] MEDS: inSUlin ASPART (NovoLOG) 1 UNIT/0.01 ML (CHARGE PER UNIT) SC SCH ×4 (05:40→23:18)
[2022-06-14] MEDS: morphine IMMEDIATE RELEASE 15 MG TABLET PO SCH ×4 (05:41→23:18)
[2022-06-14] MEDS: methylPREDNISolone 125 MG (Solu-MEDROL) VIAL IVP SCH ×3 (05:41→21:00)
--- NOTE | 2022-06-14 06:38 | Occ Therapy Progress Note ---
Therapy Progress Note Patient remains sedated and intubated. OT to remove patient from list due to continued declined in medical status and OT will require new orders when patient is deemed medical stable and able to actively participate with skilled therapy. BILL MATOS Jun 14, 2022 06:38
[2022-06-14 07:16] VITALS: BP 100/67
[2022-06-14] MEDS: RT--FLUTICASONE/SALMETEROL 232-14 (AIRDUO RespiCLICK) IH SCH (07:16)
--- NOTE | 2022-06-14 07:36 | Diagnostic Imaging Report ---
INDICATION: Respiratory distress. Frontal chest obtained at 04:55 a.m. compared with yesterday. FINDINGS: ET tube and right-sided PICC line and NG tube are unchanged. NG tube tip is slightly beyond the GE junction. There is COPD change with hyperinflation. There are chronic appearing increased basilar markings. There is no new consolidation. There is no pleural fluid. IMPRESSION: COPD changes with chronic increased interstitial markings. No new infiltrate or pleural fluid. NG tube tip is slightly beyond the GE junction and should be advanced. Dictated by: Dictated on workstation # [id number]
[2022-06-14] MEDS: SENNOSIDES 8.6 MG (SENOKOT) TAB PO SCH ×2 (07:54→20:51)
[2022-06-14] MEDS: APIXABAN 5 MG (ELIQUIS) TABLET PO SCH ×2 (07:54→20:52)
[2022-06-14] MEDS: PANTOPRAZOLE 40 MG (PROTONIX) VIAL IV SCH (07:54)
[2022-06-14] MEDS: DOCUSATE SODIUM 10 MG/ML 10 ML UDC (COLACE) PO SCH ×2 (07:54→20:52)
[2022-06-14] MEDS: LORATADINE (CLARITIN) 10 MG TAB PO SCH (07:54)
[2022-06-14] MEDS: TAMSULOSIN 0.4 MG (FLOMAX) CAP PO SCH (07:55)
[2022-06-14] MEDS: FLUCONAZOLE 100 MG/50 ML 50 ML IV SCH (07:56)
[2022-06-14] MEDS: ROFLUMILAST 500 MCG TAB (DALIRESP) PO SCH (07:56)
[2022-06-14] MEDS: PROPOFOL DRIP (ICU) 100 ML IV SCH ×3 (07:59→22:15)
[2022-06-14] MEDS: fentaNYL DRIP PRE-MIX 250 ML IV SCH ×2 (08:00→17:00)
[2022-06-14] MEDS: DexMEDEtomidine 250 ML DRIP 250 ML IV SCH ×2 (08:01→22:15)
[2022-06-14] MEDS ORDERED: FUROSEMIDE 40 MG/4 ML INJ (LASIX) IVP NR (10:30)
[2022-06-14 10:49] VITALS: BP 139/100
[2022-06-14] MEDS: BACLOFEN 10 MG (LIORESAL) TAB PO SCH ×2 (12:00→17:00)
--- NOTE | 2022-06-14 12:14 | Tele-ICU Progress Note ---
Subjective Date Seen by a Provider: Jun 14, 2022 Time Seen by a Provider: 12:11 Subjective/Events-last exam (Tele-ICU Physician , Progress Note ) Service provided via interactive audio and video telecommunications E-CARE system to a patient admitted to ICU bed in [facility]. Patient is seen today due to persistent need of ICU care Available chart/ vitals / labs / Images reviewed Video assessment done using teleICU camera, rest of exam as per RN Discussed with RN Events overnight : recived boluses Afebrile hemodynamically stable Respiratory -40% +6 I/O = +2L VENT SETTINGS and ABG reviewed NOT CANDIDATE for SBTreviewed possible contraindications including Cardiovascular Stability /Sedation Score / FI02/PEEP / ABG / CXR/ secretions Sedation, discussed with RN, RASS -1 on fentanyl 100 propofol 15 precedex 0.8 Drips: ns 40 Pressors- no Consultants: Hospital course: (06/01) 61M admitted for PNA/ AECOPD Placed on Bipap in ER. 06/02 - 10 L o2 - d/c 06/05 (06/05)Returns with acute COPD exacerbation, rapid afib. Bipap and cardizem 06/06 - amio gtt , 6 L 06/07 - moved to bipap 27 h , started precedex 0.7 + ativan 06/08 - bipap 27 h 18/02 45 %--80 % rr 17 tv 1200 MV 20 - FAILED < INTUBATED 06/09- AC 20 500 35% +6 - ASYNCHRONOUS with vent and hypotensive with sedation , - tried SIMV - better with proloned exalation , but changed back to AC with increased WOB 06/10- AC 20 500 35% +6 PAP 30 DIFFLUCAN added 06/10 , on fentanyl 100 propofol 15 precedex 0.8 06/12- AC 20 500 35% +6 fentanyl 150 propofol 15 precedex 0.8 06/13 - AC 20 500 35% +6 fentanyl 150 propofol 15 precedex 0.8 06/14- AC 20 500 40 % +6 fentanyl 100 propofol 25 precedex 0.8 , lasix 20 x1 A/P Acute on chronic ( hypoxic and hypercapneic ) resp failure - NIPPV FAILED < INTUBATED 06/08 -- AC 20 500 35% +6 PAP 30 - steroids iv - ADDITIONAL dose 125 2/9, - ABX , nebs - cont sedation- TRY TO DECREASE -secretions moderate- better AECOPD ( with advanced severe COPD at baseline , O2 dependent 2 L O2 ) - IV steroids ( as per chart was d/c on prednisone 04/17/22 - nebs Leucocytosis with suspected PNA RLL ( negative for COVID influenza) - with recently TX for PNA -06/08 - seems worsening infiltrate slightly on right - sputum cx + yeast with long steroiud use - DIFFLUCAN added 06/10 worsenig WBC T max 37- will redo blood cx 06/13- WBC 40 K - added vanco /cefepime , cx repeated , increased Po morphine 06/14 SAT attmpts -> increased RR , HR and Fio2 a FIB RVR - amio gtt OFF , cardizem NG -AC eliquis Echo on 06/13/18: LVEF 55-60%, PASP 30 mmHg - monitor fluid status, stop IVF consided diuresis if BP stable Anxiety -precedex + propofol +, fentanyl gtt ( and on large dose po morphine at baseline - to cont NG ) Anemia - stable Nutrition - TF - at goal 50 ml/h Hyperglycemia - with steroids - ISS , added levemir 10 bid 06/13 Hypernatremia - increase h20 in TF Lines : R picc 06/08 , (Central Line Necessity Reviewed) [place]: 06/08 OG: Nutrition: TF Analgesia: Anxiety/ delirium VTE Prophylaxis: eliquis Stress Ulcer Prophylaxis: ppi Plans in collaboration with bedside consultants and IM MDs. Discussed with RN to reach out if any questions or concerns A total of 35 minutes of critical care time was devoted to this patient today, required to treat and/or prevent further deterioration of critical care condition ( as above ) . I am remotely monitoring this patient from another state. I am unable to do the bedside exam, and history/physical and pertinent information is taken from other notes in the computer and bedside staff. Sepsis Event Evaluation Height, Weight, BMI Height: 5'8.00" Weight: 200lbs. 0.0oz. 90.176314xf; 30.64 BMI Method:Stated Exam Exam Patient acknowledged, consented, and participated in this virtual visit which was conducted using real time audio/video Vital Signs Date Time Temp Pulse Resp B/P (MAP) Pulse Ox O2 Delivery O2 Flow Rate FiO2 06/14/22 12:03 108 107/79 06/14/22 12:03 108 107/79 06/14/22 11:59 108 114/78 06/14/22 11:37 37.7 06/14/22 11:10 Mechanical Ventilator 50.00 06/14/22 11:00 37.4 116 16 128/78 (100) 95 Mechanical Ventilator 40.00 06/14/22 10:49 113 22 91 50 06/14/22 10:41 132 139/100 06/14/22 10:00 37.7 112 23 145/81 (101) 90 Mechanical Ventilator 40.00 06/14/22 09:00 37.6 95 20 109/67 (81) 93 Mechanical Ventilator 40.00 06/14/22 08:01 90 9606/14/22 08:00 37.6 91 20 103/68 (76) 93 Mechanical Ventilator 40.00 06/14/22 08:00 90 96/06/14/22 08:00 90 Mechanical Ventilator 40 06/14/22 07:59 91 /06/14/22 07:39 37.5 06/14/22 07:16 87 23 94 40 06/14/22 07:00 86 06/14/22 07:00 37.6 87 19 100/67 (78) 94 Mechanical Ventilator 40.00 06/14/22 06:00 37.8 89 20 105/64 (78) 93 Mechanical Ventilator 40.00 06/14/22 05:30 37.6 92 20 99/73 (81) 94 Mechanical Ventilator 40.00 06/14/22 05:00 37.5 97 20 93/75 (81) 95 Mechanical Ventilator 40.00 06/14/22 04:47 37.5 06/14/22 04:30 38 100 20 104/70 (87) 93 Mechanical Ventilator 40.00 06/14/22 04:17 38.3 06/14/22 04:00 38.3 100 20 130/83 (100) 92 Mechanical Ventilator 50.00 06/14/22 04:00 96 Mechanical Ventilator 40 06/14/22 04:00 Mechanical Ventilator 40.00 06/14/22 03:25 94 20 97 40 06/14/22 03:00 38.0 94 20 99/87 (93) 97 Mechanical Ventilator 50.00 06/14/22 02:00 38.1 96 20 101/77 (85) 97 Mechanical Ventilator 50.00 06/14/22 01:00 38.2 101 20 116/72 (87) 95 Mechanical Ventilator 50.00 06/14/22 01:00 101 06/14/22 00:00 38.1 112 20 125/88 (100) 95 Mechanical Ventilator 50.00 06/13/22 23:59 96 Mechanical Ventilator 50 06/13/22 23:39 98 117/76 06/13/22 23:05 Mechanical Ventilator 50.00 06/13/22 23:00 38.4 102 20 113/83 (95) 96 Mechanical Ventilator 60.00 06/13/22 22:55 98 20 97 50 06/13/22 22:00 38.1 99 20 112/82 (92) 97 Mechanical Ventilator 60.00 06/13/22 21:08 110 104/74 06/13/22 21:00 38 105 20 116/81 (95) 97 Mechanical Ventilator 60.00 06/13/22 20:58 110 104/74 06/13/22 20:00 38.2 117 20 115/80 (97) 96 Mechanical Ventilator 60.00 06/13/22 20:00 96 Mechanical Ventilator 60 06/13/22 19:30 38.1 117 20 107/81 (90) 96 Mechanical Ventilator 60.00 06/13/22 19:00 37.8 112 20 97/87 (91) 97 Mechanical Ventilator 60.00 06/13/22 19:00 Mechanical Ventilator 60.00 06/13/22 19:00 112 06/13/22 18:52 110 20 97 60 06/13/22 18:00 38.1 106 10 111/43 (65) 96 Mechanical Ventilator 50.00 06/13/22 17:00 38.0 111 11 106/72 (83) 96 Mechanical Ventilator 50.00 06/13/22 16:39 38.3 06/13/22 16:19 111 106/72 06/13/22 16:00 37.5 137 12 118/88 (98) 92 Mechanical Ventilator 50.00 06/13/22 16:00 96 Mechanical Ventilator 50 06/13/22 15:00 140 20 97 40 06/13/22 15:00 37.2 161 17 140/71 (94) 97 Mechanical Ventilator 50.00 06/13/22 14:00 37.8 98 11 111/72 (85) 96 Mechanical Ventilator 50.00 06/13/22 13:00 37.9 100 10 111/73 (86) 96 Mechanical Ventilator 50.00 06/13/22 13:00 101 06/13/22 12:20 111 106/72 06/13/22 12:19 109 108/77 I & O 06/14/22 07:00 Intake Total 1815 ml Output Total 1725 ml Balance 90 ml Height & Weight Height: 5'8.00" Weight: 200lbs. 0.0oz. 90.614743tk; 30.64 BMI Method:Stated General Appearance: No Apparent Distress, WD/WN, Chronically ill, Other (sedated and intubated) HEENT: Other (Eyes closed - sedated) Neck: Non Tender, Supple Respiratory: No Accessory Muscle Use, No Respiratory Distress, Decreased Breath Sounds Cardiovascular: Regular Rate, Rhythm Capillary Refill: Less Than 3 Seconds Peripheral Pulses: 2+ Radial Pulses (R), 2+ Radial Pulses (L) Gastrointestinal: normal bowel sounds, non tender, soft Extremity: Other (bilateral LE sequential compression devices in place / Arterial Line in left wrist) Neurologic/Psychiatric: Other (Sedated) Skin: Ecchymosis (bilateral arms) Results Lab Laboratory Tests 06/13/22 02:30 06/14/22 04:00 Assessment/Plan Assessment/Plan 1 NATHEN DAMIAN MD Jun 14, 2022 12:14
[2022-06-14] MEDS: MULTIVIT W/MINERALS TAB (THERAGRAN M) PO SCH (14:06)
[2022-06-14 14:48] VITALS: BP 82/64
--- NOTE | 2022-06-14 16:14 | Progress Note ---
Subjective Subjective/Events-last exam Patient intubated and sedated. No acute ON events Review of Systems Unable to review Objective Exam Last Set of Vital Signs Vital Signs Date Time Temp Pulse Resp B/P (MAP) Pulse Ox O2 Delivery O2 Flow Rate FiO2 06/14/22 15:24 36.4 06/14/22 15:00 19 94/64 (70) 95 Mechanical Ventilator 50.00 06/14/22 14:06 96 06/14/22 12:00 50 Capillary Refill : Less Than 3 Seconds I&O Intake and Output 06/14/22 00:00 Intake Total 2220 ml Output Total 1575 ml Balance 645 ml IV Total 350 ml Tube Feeding 1095 ml Enteral Flush 240 ml Other 535 ml Output Urine Total 1575 ml General: Other (Intubated and sedated, will open eyes to name) Lungs: Other (Diminished breath sounds with end exp wheezing and some belly breathing) Heart: Regular Rate Abdomen: Normal Bowel Sounds, Soft Extremities: Other (2+ pitting edema UE bilaterally) Results/Procedures Lab Laboratory Tests 06/13/22 17:43: Glucometer 329H 06/13/22 23:43: Glucometer 281H 06/14/22 04:00: White Blood Count 31.4*H, Red Blood Count 3.69L, Hemoglobin 10.4L, Hematocrit 33L, Mean Corpuscular Volume 90, Mean Corpuscular Hemoglobin 28, Mean Corpuscular Hemoglobin Concent 31L, Red Cell Distribution Width 17.4H, Platelet Count 161, Mean Platelet Volume 12.3H, Immature Granulocyte % (Auto) 2, Neutrophils (%) (Auto) 95H, Lymphocytes (%) (Auto) 0L, Monocytes (%) (Auto) 2, Eosinophils (%) (Auto) 0, Basophils (%) (Auto) 0, Neutrophils # (Auto) 29.9H, Lymphocytes # (Auto) 0.1L, Monocytes # (Auto) 0.7, Eosinophils # (Auto) 0.0, Basophils # (Auto) 0.1, Immature Granulocyte # (Auto) 0.6H, Blood Gas Puncture Site UNK, Blood Gas Patient Temperature UNK, Arterial Blood pH 7.41, Arterial Blood Partial Pressure CO2 62H, Arterial Blood Partial Pressure O2 65L, Arterial Blood HCO3 39H, Arterial Blood Total CO2 40.4*H, Arterial Blood Oxygen Saturation 93L, Arterial Blood Base Excess 13.2H, Jeff Test YES-POS, Blood Gas Ventilator Setting YES, Blood Gas Inspired Oxygen 50%, Sodium Level 146H, Potassium Level 4.7, Chloride Level 106, Carbon Dioxide Level 29, Anion Gap 11, Blood Urea Nitrogen 44H, Creatinine 0.64, Estimat Glomerular Filtration Rate 107, BUN/Creatinine Ratio 69, Glucose Level 227H, Calcium Level 7.3L, Corrected Calcium 8.6, Phosphorus Level 3.7, Magnesium Level 1.9, Total Bilirubin 0.6, Aspartate Amino Transf (AST/SGOT) 47H, Alanine Aminotransferase (ALT/SGPT) 175H, Alkaline Phosphatase 41, Total Protein 4.7L, Albumin 2.4L 06/14/22 11:44: Glucometer 257H Microbiology 06/13/22 Gram Stain - Final, Resulted 06/13/22 Sputum Culture - Preliminary, Resulted Serratia marcescens Usual upper respiratory theo 06/05/22 Urine Culture - Final, Complete NO GROWTH Radiology NAME: KAYA CARPENTER [facility] REC#: [id number] PT STATUS: REG ER : 1960 PHYSICIAN: EDGARDO FRANCE APRN ADMIT DATE: 06/05/22/ER Signed Date of Exam:06/05/22 CHEST 1 VIEW, AP/PA ONLY EXAMINATION: Chest 1 view HISTORY: Shortness of breath. COMPARISON: 06/01/2022. FINDINGS: Hazy opacities are seen in the left lung base. Chronic fibrotic changes are seen in both lung bases. The lungs are hyperinflated. The heart size is normal. There is calcified aortic atherosclerotic plaque. Radiopaque material is seen in the left chest, similar to the prior exam. IMPRESSION: 1. Hazy opacities in the left lung base, which may represent atelectasis or infection. 2. Hyperinflated lung volumes with chronic fibrotic changes. Dictated by: Dictated on workstation # [id number] Dict: 06/05/22 1503 Trans: 06/05/22 1516 [id number] [id number] Interpreted by: AN MELENDEZ DO Electronically signed by: AN MELENDEZ DO 06/05/22 1516 Assessment/Plan Assessment/Plan (1) Sepsis Status: Acute Assessment & Plan: 06/12: Continue IV antibiotics, IVFs, eICU managing vent 06/13: Repeat blood cultures today, start cefepime and Vanc due to jump in WBC 06/14: Blood pressures have trended down, continue broad spec antibiotics, WBC trending down, repeat blood cultures pending Qualifiers: Qualified Codes: A41.9 - Sepsis, unspecified organism; R65.20 - Severe sepsis without septic shock; J96.01 - Acute respiratory failure with hypoxia (2) Acute on chronic respiratory failure with hypoxia and hypercapnia Status: Acute Assessment & Plan: 06/13: eICU for vent management (3) COPD exacerbation Status: Acute (4) Pneumonia Status: Acute (5) Atrial fibrillation with RVR Status: Chronic Assessment & Plan: 06/12: Cardiology consulted, appreciate recommendations (6) Discharge planning issues Assessment & Plan: 06/13: Spoke with family today in meeting. 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 Patient is still guarded. Patient may need LTAC placement as he will be a long titration. At this time they would like to keep him Full Code RO HALL MD Jun 14, 2022 16:14
[2022-06-14 18:42] VITALS: BP 94/63
[2022-06-14] MEDS ORDERED: meTOprolol 5 MG/5 ML (LOPRESSOR) VIAL ONE (20:45)
[2022-06-14] MEDS: meTOprolol 5 MG/5 ML (LOPRESSOR) VIAL IV PRN (20:46)
[2022-06-14] MEDS: MONTELUKAST 10 MG (SINGULAIR) TAB PO SCH (20:51)
[2022-06-14 22:31] VITALS: BP 94/63
[2022-06-14] MEDS ORDERED: TROUGH ORDER-PHARMACY XX NR (23:00)
[2022-06-15] VITALS (7 sets, daily range): BP systolic 93–143; BP diastolic 62–75
[2022-06-15] MEDS: fentaNYL DRIP PRE-MIX 250 ML IV SCH ×3 (01:14→17:46)
[2022-06-15] MEDS: RT-IPRATROPIUM (ATROVENT) 0.5MG/2.5ML AMP IH SCH ×6 (03:29→23:04)
[2022-06-15] MEDS: RT-ALBUTEROL SULF 2.5 MG/3 ML PRE-MIX VIAL INH SCH ×4 (03:29→14:51)
[2022-06-15 03:32] LABS: ABG BASE EXCESS 13.5 MMOL/L (-2.5-2.5); ABG OXYGEN SATURATION 96 % (94-100); ABG PCO2 65 MMHG (35-45); ABG PO2 84 MMHG (79-93)
[2022-06-15 03:33] LABS: ALLENS TEST YES-POS; INSPIRED O2 45%; PATIENT TEMP 37; VENTILATOR YES
[2022-06-15 03:34] LABS: BASOPHILS # (AUTO) 0.1 10^3/uL (0.0-0.1); BASOPHILS % (AUTO) 0 % (0-10); EOSINOPHILS % (AUTO) 0 % (0-10); HEMATOCRIT 33 % (40-54); HEMOGLOBIN 10.1 g/dL (13.3-17.7); LYMPHOCYTES # (AUTO) 0.1 10^3/uL (1.0-4.0); LYMPHOCYTES % (AUTO) 0 % (12-44); MEAN CORPUSCULAR HEMOGLOBIN 27 pg (25-34); MEAN CORPUSCULAR HGB CONC 31 g/dL (32-36); MEAN CORPUSCULAR VOLUME 89 fL (80-99); MEAN PLATELET VOLUME 11.9 fL (9.0-12.2); MONOCYTES # (AUTO) 0.6 10^3/uL (0.0-1.0); MONOCYTES % (AUTO) 2 % (0-12); NEUTROPHILS # (AUTO) 31.2 10^3/uL (1.8-7.8); NEUTROPHILS % (AUTO) 96 % (42-75); PLATELET COUNT 155 10^3/uL (130-400)
[2022-06-15 03:39] LABS: WHITE BLOOD COUNT 32.4 10^3/uL (4.3-11.0)
[2022-06-15 03:43] LABS: ALBUMIN 2.5 GM/DL (3.2-4.5); POTASSIUM 4.5 MMOL/L (3.6-5.0)
[2022-06-15] MEDS: meTOprolol 5 MG/5 ML (LOPRESSOR) VIAL IV PRN ×2 (03:43→09:43)
[2022-06-15 03:45] LABS: CALCIUM 7.6 MG/DL (8.5-10.1)
[2022-06-15 03:46] LABS: TOTAL PROTEIN 4.6 GM/DL (6.4-8.2)
[2022-06-15 03:48] LABS: BILIRUBIN,TOTAL 0.5 MG/DL (0.1-1.0)
[2022-06-15 03:49] LABS: PHOSPHORUS 3.7 MG/DL (2.3-4.7)
[2022-06-15 03:50] LABS: CREATININE SERUM 0.67 MG/DL (0.60-1.30)
[2022-06-15 03:52] LABS: MAGNESIUM 2.1 MG/DL (1.6-2.4)
[2022-06-15] MEDS ORDERED: meTOprolol 5 MG/5 ML (LOPRESSOR) VIAL IV ONE (04:00)
[2022-06-15] MEDS: MAGNESIUM 1 GM/100 ML IVPB 100 ML IV SCH (04:08)
[2022-06-15] MEDS: POTASSIUM CL 10MEQ/50ML IVPB 50 ML IV SCH (04:08)
[2022-06-15] MEDS: KCL 20 MEQ TAB (K-DUR) PO SCH (04:08)
[2022-06-15] MEDS ORDERED: AMIODARONE (Pyxis Kit Only) BOLUS 150 MG/3 ML IV ONE (04:55)
[2022-06-15] MEDS ORDERED: NS (IVPB) 100 ML ONE (04:56)
[2022-06-15] MEDS ORDERED: AMIODARONE FOR BOLUS 150 MG in NS (IVPB) 100 ML IV ONE (05:00)
[2022-06-15] MEDS: methylPREDNISolone 125 MG (Solu-MEDROL) VIAL IVP SCH ×3 (05:07→21:54)
[2022-06-15] MEDS: CEFEPIME INJECTION 1,000 MG in NS (IVPB) 50 ML IV SCH (05:07)
[2022-06-15] MEDS: morphine IMMEDIATE RELEASE 15 MG TABLET PO SCH ×4 (05:08→23:56)
[2022-06-15] MEDS: inSUlin ASPART (NovoLOG) 1 UNIT/0.01 ML (CHARGE PER UNIT) SC SCH ×4 (05:27→23:56)
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
[2022-06-15] MEDS: DOCUSATE SODIUM 10 MG/ML 10 ML UDC (COLACE) PO SCH ×2 (09:08→20:37)
[2022-06-15] MEDS: PANTOPRAZOLE 40 MG (PROTONIX) VIAL IV SCH (09:09)
[2022-06-15] MEDS: SENNOSIDES 8.6 MG (SENOKOT) TAB PO SCH ×2 (09:09→20:37)
[2022-06-15] MEDS: LORATADINE (CLARITIN) 10 MG TAB PO SCH (09:09)
[2022-06-15] MEDS: APIXABAN 5 MG (ELIQUIS) TABLET PO SCH ×2 (09:09→20:37)
[2022-06-15] MEDS: FLUCONAZOLE 100 MG/50 ML 50 ML IV SCH (09:09)
[2022-06-15] MEDS: TAMSULOSIN 0.4 MG (FLOMAX) CAP PO SCH (09:09)
[2022-06-15] MEDS: ROFLUMILAST 500 MCG TAB (DALIRESP) PO SCH (09:09)
[2022-06-15] MEDS: ACETAMINOPHEN 325 MG TABLET PO PRN (09:12)
[2022-06-15] MEDS: DexMEDEtomidine 250 ML DRIP 250 ML IV SCH (10:46)
--- NOTE | 2022-06-15 10:58 | Tele-ICU Progress Note ---
Subjective Date Seen by a Provider: Jun 15, 2022 Time Seen by a Provider: 10:58 Subjective/Events-last exam (Tele-ICU Physician , Progress Note ) Service provided via interactive audio and video telecommunications E-CARE system to a patient admitted to ICU bed in [facility]. Patient is seen today due to persistent need of ICU care Available chart/ vitals / labs / Images reviewed Video assessment done using teleICU camera, rest of exam as per RN Discussed with RN Events overnight : recived boluses Afebrile hemodynamically stable Respiratory -40% +6 I/O = +2L VENT SETTINGS and ABG reviewed NOT CANDIDATE for SBTreviewed possible contraindications including Cardiovascular Stability /Sedation Score / FI02/PEEP / ABG / CXR/ secretions Sedation, discussed with RN, RASS -1 on fentanyl 100 propofol 15 precedex 0.8 Drips: ns 40 Pressors- no Consultants: Hospital course: (06/01) 61M admitted for PNA/ AECOPD Placed on Bipap in ER. 06/02 - 10 L o2 - d/c 06/05 (06/05)Returns with acute COPD exacerbation, rapid afib. Bipap and cardizem 06/06 - amio gtt , 6 L 06/07 - moved to bipap 27 h , started precedex 0.7 + ativan 06/08 - bipap 27 h 18/02 45 %--80 % rr 17 tv 1200 MV 20 - FAILED < INTUBATED 06/09- AC 20 500 35% +6 - ASYNCHRONOUS with vent and hypotensive with sedation , - tried SIMV - better with proloned exalation , but changed back to AC with increased WOB 06/10- AC 20 500 35% +6 PAP 30 DIFFLUCAN added 06/10 , on fentanyl 100 propofol 15 precedex 0.8 06/12- AC 20 500 35% +6 fentanyl 150 propofol 15 precedex 0.8 06/13 - AC 20 500 35% +6 fentanyl 150 propofol 15 precedex 0.8 FEVER 06/14- AC 20 500 40 % +6 fentanyl 100 propofol 25 precedex 0.8 , lasix 20 x1 , SAT attmpts -> increased RR , HR and Fio2 06/15 - ? afib vs sinus 160 - metoprolol IV , amio x1 , 45 % +6 fentanyl 150 propofol 15 precedex 1.o, A/P Acute on chronic ( hypoxic and hypercapneic ) resp failure INTUBATED 06/08 -- AC 20 500 45% +6 PAP 30 - steroids iv - keep same dose - ABX , nebs - cont sedation- TRY TO DECREASE , BUT WITH ANY ATTEMPS HIS IS AGITATED AND TACHYCARDIC -secretions moderate- better GIVEN AMMOUNT OF SEDATION NEEDED , DO NOT ANTICIPATE SMOOTHSBT AND EXTUBATION SOON , MOST LIKELY WILL BENEFIT FROM TRACH AND SLOW WEANING AECOPD ( with advanced severe COPD at baseline , O2 dependent 2 L O2 ) - IV steroids - nebs Leucocytosis with suspected PNA RLL ( negative for COVID influenza) - with recently TX for PNA -06/08 - seems worsening infiltrate slightly on right - sputum cx + yeast with long steroiud use - DIFFLUCAN added 06/10 worsenig WBC T max 37- will redo blood cx 06/13- WBC 40 K - added vanco /cefepime , cx repeated , increased Po morphine 06/13 sputum + Serratia marcescens- CONT CEFEPIME ( ?sens a FIB RVR - amio gtt OFF , cardizem NG - beta blockers PRN , mostly sinus now -AC eliquis Echo on 06/13/18: LVEF 55-60%, PASP 30 mmHg -prn diuresis Anxiety -precedex + propofol +, fentanyl gtt ( and on large dose po morphine at baseline - to cont NG ) Anemia - stable Nutrition - TF - at goal 50 ml/h Hyperglycemia - with steroids - ISS , added levemir 10 bid 06/13 Hypernatremia - increase h20 in TF 200 q 4 - Lines : R picc 06/08 , (Central Line Necessity Reviewed) [place]: 06/08 OG: Nutrition: TF Analgesia: Anxiety/ delirium VTE Prophylaxis: eliquis Stress Ulcer Prophylaxis: ppi Plans in collaboration with bedside consultants and IM MDs. Discussed with RN to reach out if any questions or concerns A total of 35 minutes of critical care time was devoted to this patient today, required to treat and/or prevent further deterioration of critical care condition ( as above ) . I am remotely monitoring this patient from another state. I am unable to do the bedside exam, and history/physical and pertinent information is taken from other notes in the computer and bedside staff. Sepsis Event Evaluation Height, Weight, BMI Height: 5'8.00" Weight: 200lbs. 0.0oz. 90.281668kv; 31.18 BMI Method:Stated Exam Exam Patient acknowledged, consented, and participated in this virtual visit which was conducted using real time audio/video Vital Signs Date Time Temp Pulse Resp B/P (MAP) Pulse Ox O2 Delivery O2 Flow Rate FiO2 06/15/22 10:46 135 112/68 06/15/22 10:01 37.9 06/15/22 10:00 37.9 116 22 116/57 (85) 94 Mechanical Ventilator 45.00 06/15/22 09:45 116 112/80 06/15/22 09:12 38.3 06/15/22 09:00 38.2 133 22 118/66 (82) 94 Mechanical Ventilator 45.00 06/15/22 08:00 38.3 133 19 98/58 (71) 94 Mechanical Ventilator 45.00 06/15/22 08:00 93 Mechanical Ventilator 45 06/15/22 07:30 37.7 06/15/22 07:00 103 06/15/22 07:00 37.4 104 14 89/63 (70) 94 Mechanical Ventilator 45.00 06/15/22 06:56 104 20 94 45 06/15/22 06:00 36.7 101 21 94/69 (77) 95 Mechanical Ventilator 45.00 06/15/22 05:07 134 86/68 06/15/22 05:00 37.1 140 20 86/68 (74) 93 Mechanical Ventilator 45.00 06/15/22 04:59 140 103/73 06/15/22 04:05 140 140/74 06/15/22 04:00 36.9 134 25 140/74 (96) 94 Mechanical Ventilator 45.00 06/15/22 03:30 93 Mechanical Ventilator 45 06/15/22 03:30 120 21 92 45 06/15/22 03:00 36.6 105 22 111/80 (90) 92 Mechanical Ventilator 45.00 06/15/22 02:28 101 103/63 06/15/22 02:27 101 103/63 06/15/22 02:00 37.9 113 20 127/71 (89) 93 Mechanical Ventilator 45.00 06/15/22 01:14 101 103/63 06/15/22 01:00 37.2 97 20 103/63 (76) 93 Mechanical Ventilator 45.00 06/15/22 01:00 100 06/15/22 00:00 37.5 112 26 98/67 (77) 93 Mechanical Ventilator 45.00 06/14/22 23:40 92 Mechanical Ventilator 45 06/14/22 23:39 Mechanical Ventilator 45.00 06/14/22 23:25 37.6 113 20 107/69 (82) 93 Mechanical Ventilator 40.00 06/14/22 23:00 37.5 110 21 107/69 (82) 93 Mechanical Ventilator 45.00 06/14/22 22:31 108 20 96 45 06/14/22 22:15 114 113/70 06/14/22 22:15 114 113/70 06/14/22 22:00 37.4 113 19 113/70 (84) 92 Mechanical Ventilator 45.00 06/14/22 21:00 37.9 108 26 135/79 (97) 92 Mechanical Ventilator 45.00 06/14/22 20:52 103 120/67 06/14/22 20:46 140 120/67 06/14/22 20:10 105 86/70 06/14/22 20:00 96 Mechanical Ventilator 45 06/14/22 20:00 37.6 101 19 86/70 (75) 94 Mechanical Ventilator 45.00 06/14/22 19:43 92 06/14/22 19:40 37.6 88 20 87/63 (71) 96 Mechanical Ventilator 45.00 06/14/22 19:12 36.5 06/14/22 19:00 91 06/14/22 19:00 37.8 91 18 89/60 (70) 95 Mechanical Ventilator 50.00 06/14/22 18:48 96 94/63 06/14/22 18:42 101 20 94 50 06/14/22 18:00 115 22 113/88 (94) 93 Mechanical Ventilator 50.00 06/14/22 17:00 113 16 94/65 (77) 94 Mechanical Ventilator 50.00 06/14/22 17:00 121 108/73 06/14/22 16:00 95 Mechanical Ventilator 50 06/14/22 16:00 123 21 109/70 (89) 93 Mechanical Ventilator 50.00 06/14/22 15:24 36.4 06/14/22 15:00 37.5 19 94/64 (70) 95 Mechanical Ventilator 50.00 06/14/22 14:48 94 20 95 50 06/14/22 14:06 96 84/59 06/14/22 14:00 37.6 97 13 82/64 (70) 95 Mechanical Ventilator 50.00 06/14/22 13:00 37.8 97 9 100/63 (77) 95 Mechanical Ventilator 50.00 06/14/22 12:57 109 06/14/22 12:03 108 107/79 06/14/22 12:03 108 107/79 06/14/22 12:00 93 Mechanical Ventilator 50 06/14/22 12:00 37.7 109 13 107/79 (88) 95 Mechanical Ventilator 50.00 06/14/22 11:59 108 114/78 06/14/22 11:37 37.7 06/14/22 11:10 Mechanical Ventilator 50.00 06/14/22 11:00 37.4 116 16 128/78 (100) 95 Mechanical Ventilator 40.00 I & O 06/15/22 07:00 Intake Total 4033 ml Output Total 2300 ml Balance 1733 ml Height & Weight Height: 5'8.00" Weight: 200lbs. 0.0oz. 90.431058mt; 31.18 BMI Method:Stated General Appearance: No Apparent Distress, WD/WN, Chronically ill, Other (sedated and intubated) HEENT: Other (Eyes closed - sedated) Neck: Non Tender, Supple Respiratory: No Accessory Muscle Use, No Respiratory Distress, Decreased Breath Sounds Cardiovascular: Regular Rate, Rhythm Capillary Refill: Less Than 3 Seconds Peripheral Pulses: 2+ Radial Pulses (R), 2+ Radial Pulses (L) Gastrointestinal: normal bowel sounds, non tender, soft Extremity: Other (bilateral LE sequential compression devices in place / Arterial Line in left wrist) Neurologic/Psychiatric: Other (Sedated) Skin: Ecchymosis (bilateral arms) Results Lab Laboratory Tests 06/14/22 04:00 06/15/22 03:20 Assessment/Plan Assessment/Plan 1 NATHEN DAMIAN MD Jun 15, 2022 10:58
[2022-06-15] MEDS: MEROPENEM 500 MG/NS 100 ML IVPB IV SCH ×6 (11:35→23:57)
[2022-06-15] MEDS: BACLOFEN 10 MG (LIORESAL) TAB PO SCH ×2 (11:36→17:34)
[2022-06-15] MEDS: MULTIVIT W/MINERALS TAB (THERAGRAN M) PO SCH (11:36)
[2022-06-15] MEDS: dilTIAZem DRIP PRE-MIX 125 ML IV SCH ×2 (12:07→22:25)
--- NOTE | 2022-06-15 12:10 | Progress Note ---
Subjective Subjective/Events-last exam Intubated and sedated. ON patient started having tachycardia and more fevers. Rate control medications were added by eICU Review of Systems Unable to review Objective Exam Last Set of Vital Signs Vital Signs Date Time Temp Pulse Resp B/P (MAP) Pulse Ox O2 Delivery O2 Flow Rate FiO2 06/15/22 11:45 35.6 06/15/22 11:18 135 20 95 45 06/15/22 11:00 106/72 (77) Mechanical Ventilator 45.00 Capillary Refill : Less Than 3 Seconds I&O Intake and Output 06/15/22 00:00 Intake Total 3405 ml Output Total 2100 ml Balance 1305 ml Intake Oral 0 ml IV Total 1250 ml Tube Feeding 1165 ml Enteral Flush 280 ml Other 710 ml Output Urine Total 2100 ml General: Other (Intubated and sedated) Lungs: Other (Diminished breath sounds with belly breathing) Heart: Other (tachycardic rate, regular rhythm) Abdomen: Soft Extremities: Other (UE 2+ pitting edema bilaterally) Results/Procedures Lab Laboratory Tests 06/14/22 18:08: Glucometer 272H 06/14/22 22:25: Vancomycin Level Trough 12.1 06/14/22 23:15: Glucometer 281H 06/15/22 03:20: White Blood Count 32.4*H, Red Blood Count 3.70L, Hemoglobin 10.1L, Hematocrit 33L, Mean Corpuscular Volume 89, Mean Corpuscular Hemoglobin 27, Mean Corpuscula r Hemoglobin Concent 31L, Red Cell Distribution Width 17.5H, Platelet Count 155, Mean Platelet Volume 11.9, Immature Granulocyte % (Auto) 2, Neutrophils (%) (Auto) 96H, Lymphocytes (%) (Auto) 0L, Monocytes (%) (Auto) 2, Eosinophils (%) (Auto) 0, Basophils (%) (Auto) 0, Neutrophils # (Auto) 31.2H, Lymphocytes # (Auto) 0.1L, Monocytes # (Auto) 0.6, Eosinophils # (Auto) 0.0, Basophils # (Auto) 0.1, Immature Granulocyte # (Auto) 0.5H, Blood Gas Puncture Site R RAD, Blood Gas Patient Temperature 37, Arterial Blood pH 7.40, Arterial Blood Partial Pressure CO2 65H, Arterial Blood Partial Pressure O2 84, Arterial Blood HCO3 39H , Arterial Blood Total CO2 41.0*H, Arterial Blood Oxygen Saturation 96, Arterial Blood Base Excess 13.5H, Jeff Test YES-POS, Blood Gas Ventilator Setting YES, Blood Gas Inspired Oxygen 45%, Sodium Level 147H, Potassium Level 4.5, Chloride Level 102, Carbon Dioxide Level 33H, Anion Gap 12, Blood Urea Nitrogen 49H, Creatinine 0.67, Estimat Glomerular Filtration Rate 106, BUN/Creatinine Ratio 73, Glucose Level 304H, Calcium Level 7.6L, Corrected Calcium 8.8, Phosphorus Level 3.7, Magnesium Level 2.1, Total Bilirubin 0.5, Aspartate Amino Transf (AST/SGOT) 30, Alanine Aminotransferase (ALT/SGPT) 143H, Alkaline Phosphatase 56, Total Protein 4.6L, Albumin 2.5L 06/15/22 05:22: Glucometer 266H 06/15/22 11:52: Glucometer 271H Microbiology 06/13/22 Gram Stain - Final, Resulted 06/13/22 Sputum Culture - Preliminary, Resulted Serratia marcescens Usual upper respiratory theo 06/05/22 Urine Culture - Final, Complete NO GROWTH Radiology NAME: KAYA CARPENTER [facility] REC#: [id number] PT STATUS: REG ER : 1960 PHYSICIAN: EDGARDO FRANCE APRN ADMIT DATE: 06/05/22/ER Signed Date of Exam:06/05/22 CHEST 1 VIEW, AP/PA ONLY EXAMINATION: Chest 1 view HISTORY: Shortness of breath. COMPARISON: 06/01/2022. FINDINGS: Hazy opacities are seen in the left lung base. Chronic fibrotic changes are seen in both lung bases. The lungs are hyperinflated. The heart size is normal. There is calcified aortic atherosclerotic plaque. Radiopaque material is seen in the left chest, similar to the prior exam. IMPRESSION: 1. Hazy opacities in the left lung base, which may represent atelectasis or infection. 2. Hyperinflated lung volumes with chronic fibrotic changes. Dictated by: Dictated on workstation # [id number] Dict: 06/05/22 1503 Trans: 06/05/22 1516 AS6 [id number] Interpreted by: AN MELENDEZ DO Electronically signed by: AN MELENDEZ DO 06/05/22 1516 Assessment/Plan Assessment/Plan (1) Sepsis Status: Acute Assessment & Plan: 06/12: Continue IV antibiotics, IVFs, eICU managing vent 06/13: Repeat blood cultures today, start cefepime and Vanc due to jump in WBC 06/14: Blood pressures have trended down, continue broad spec antibiotics, WBC trending down, repeat blood cultures pending 06/15: changed to Meropenum today due to fevers and WBC, d/c Cefepime Qualifiers: Qualified Codes: A41.9 - Sepsis, unspecified organism; R65.20 - Severe sepsis without septic shock; J96.01 - Acute respiratory failure with hypoxia (2) Acute on chronic respiratory failure with hypoxia and hypercapnia Status: Acute Assessment & Plan: 06/13: eICU for vent management (3) COPD exacerbation Status: Acute (4) Pneumonia Status: Acute (5) Atrial fibrillation with RVR Status: Chronic Assessment & Plan: 06/12: Cardiology consulted, appreciate recommendations (6) Tachycardia Status: Acute Assessment & Plan: 06/15: does not seem to be A fib, will notify cardiology that we would like them to see patient again, Lopressor added last night by eICU (7) Discharge planning issues Assessment & Plan: 06/13: Spoke with family today in meeting. 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 Patient is still guarded. Patient may need LTAC placement as he will be a long titration. At this time they would like to keep him Full Code 06/15: and son in room this AM, discussed course with them that he is getting worse and needing additional support, not candidate for vent SBT at this time RO HALL MD Jun 15, 2022 12:10
[2022-06-15] MEDS: PROPOFOL DRIP (ICU) 100 ML IV SCH (12:16)
[2022-06-15] MEDS ORDERED: ADENOSINE 6 MG/2 ML (ADENOCARD) VIAL IV ONE ×2 (18:20→18:30)
--- NOTE | 2022-06-15 18:34 | Consultation-Cardiology ---
HPI-Cardiology Cardiology Consultation Date of Consultation 06/15/22 Date of Admission Time Seen by Provider: 18:29 Indication: Atrial fibrillation HPI 61-year-old gentleman with history of COPD, hypertension and hyperlipidemia, paroxysmal atrial fibrillation, admitted with acute exacerbation of COPD and pneumonia. Progressed to respiratory failure, patient is ventilator dependent. I was called for evaluation due to tachycardia. Appears that he is having episodes of tachycardia after bronchodilator treatment. Has underlying atrial flutter with variable response. History was obtained by reviewing his record and visiting with the family Home Medications & Allergies Allergies: Coded Allergies: fentanyl (Verified Allergy, Unknown, SOA, 06/10/16) carisoprodol (Verified Adverse Reaction, Unknown, MEAN, 06/10/16) codeine (Verified Adverse Reaction, Unknown, MEAN, 06/10/16) tramadol (Verified Adverse Reaction, Unknown, FORGETFUL, 06/10/16) Home Medication List Reviewed: Yes OOO-Blnuyy-Yrfolg Hx Patient Social History Marital Status: Smoking Status: Former Smoker Type Used: Cigarettes 2nd Hand Smoke Exposure: No Recent Hopitalizations: No Have you traveled recently?: No Alcohol Use?: No Immunizations Up To Date Tetanus Booster (TDap): Unknown Date of Pneumonia Vaccine: Apr 01, 2016 Date of Influenza Vaccine: Jan 30, 2022 Past Medical History Discussed below Family Medical History Significant Family History: Asthma, Heart Disease, Cancer, Lung Disease Family History: Cancer 03 FATHER, Onset:Unknown 03 MOTHER, Onset:Unknown Cataract 03 MOTHER, Onset:Unknown Chest pain 03 MOTHER, Onset:Unknown Congenital heart disease Congestive heart failure 03 MOTHER, Onset:Unknown Family history: Allergy 03 MOTHER, Onset:Unknown Family history: Arthritis 03 FATHER, Onset:Unknown 03 MOTHER Family history: Asthma 03 MOTHER, Onset:Unknown Family history: Breast disease 03 MOTHER, Onset:Unknown Family history: Cardiovascular disease 03 MOTHER, Onset:Unknown Family history: Glaucoma 03 FATHER, Onset:Unknown Family history: Hypertension 03 MOTHER, Onset:Unknown Headache 09 SISTER, Onset:Unknown Heart disease 03 MOTHER, Onset:Unknown History of - respiratory disease 03 MOTHER, Onset:Unknown History of drug abuse 09 SISTER, Onset:Unknown Hypercholesterolemia 03 FATHER, Onset:Unknown 03 MOTHER, Onset:Unknown Malignant neoplasm of lung 03 FATHER, Onset:Unknown Stroke 03 MOTHER, Onset:60 years & older No Family History of: Abdominal aortic aneurysm Justyn's disease Alcoholism Aphasia Cancer of colon Cystic fibrosis Dementia Dysphagia Family history: Alzheimer's disease Family history: Coronary thrombosis Family history: Diabetes mellitus Family history: Gastrointestinal disease Family history: Osteoporosis Family history: Thyroid disorder Hearing loss Hereditary disease History of - anemia History of - disorder Human immunodeficiency virus (HIV) seropositivity Infertile Kidney disease Myocardial infarction Parkinson's disease Prostate cancer Psychotic disorder Seizure disorder Tuberculosis Visual impairment Review of Systems-General Review of Systems Constitutional: see HPI, malaise, other (Unable to provide review of system, patient is ventilator dependent) EENTM: no symptoms reported Respiratory: no symptoms reported, see HPI, short of breath, wheezing Cardiovascular: see HPI Gastrointestinal: no symptoms reported Genitourinary: no symptoms reported Musculoskeletal: no symptoms reported Skin: no symptoms reported Psychiatric/Neurological: No Symptoms Reported Reviewed Test Results Reviewed Test Results Lab Laboratory Tests Test 06/14/22 22:25 06/14/22 23:15 06/15/22 03:20 06/15/22 05:22 Range/Units Vancomycin Level Trough 12.1 10.0-20.0 UG/ML Glucometer 281 H 266 H 70-110 MG/DL White Blood Count 32.4 *H 4.3-11.0 10^3/uL Red Blood Count 3.70 L 4.30-5.52 10^6/uL Hemoglobin 10.1 L 13.3-17.7 g/dL Hematocrit 33 L 40-54 % Mean Corpuscular Volume 89 80-99 fL Mean Corpuscular Hemoglobin 27 25-34 pg Mean Corpuscular Hemoglobin Concent 31 L 32-36 g/dL Red Cell Distribution Width 17.5 H 10.0-14.5 % Platelet Count 155 130-400 10^3/uL Mean Platelet Volume 11.9 9.0-12.2 fL Immature Granulocyte % (Auto) 2 % Neutrophils (%) (Auto) 96 H 42-75 % Lymphocytes (%) (Auto) 0 L 12-44 % Monocytes (%) (Auto) 2 0-12 % Eosinophils (%) (Auto) 0 0-10 % Basophils (%) (Auto) 0 0-10 % Neutrophils # (Auto) 31.2 H 1.8-7.8 10^3/uL Lymphocytes # (Auto) 0.1 L 1.0-4.0 10^3/uL Monocytes # (Auto) 0.6 0.0-1.0 10^3/uL Eosinophils # (Auto) 0.0 0.0-0.3 10^3/uL Basophils # (Auto) 0.1 0.0-0.1 10^3/uL Immature Granulocyte # (Auto) 0.5 H 0.0-0.1 10^3/uL Blood Gas Puncture Site R RAD Blood Gas Patient Temperature 37 Arterial Blood pH 7.40 7.37-7.43 Arterial Blood Partial Pressure CO2 65 H 35-45 MMHG Arterial Blood Partial Pressure O2 84 79-93 MMHG Arterial Blood HCO3 39 H 23-27 MMOL/L Arterial Blood Total CO2 41.0 *H 21.0-31.0 MMOL/L Arterial Blood Oxygen Saturation 96 94-100 % Arterial Blood Base Excess 13.5 H -2.5-2.5 MMOL/L Jeff Test YES-POS Blood Gas Ventilator Setting YES Blood Gas Inspired Oxygen 45% Sodium Level 147 H 135-145 MMOL/L Potassium Level 4.5 3.6-5.0 MMOL/L Chloride Level 102 98-107 MMOL/L Carbon Dioxide Level 33 H 21-32 MMOL/L Anion Gap 12 5-14 MMOL/L Blood Urea Nitrogen 49 H 7-18 MG/DL Creatinine 0.67 0.60-1.30 MG/DL Estimat Glomerular Filtration Rate 106 BUN/Creatinine Ratio 73 Glucose Level 304 H 70-105 MG/DL Calcium Level 7.6 L 8.5-10.1 MG/DL Corrected Calcium 8.8 8.5-10.1 MG/DL Phosphorus Level 3.7 2.3-4.7 MG/DL Magnesium Level 2.1 1.6-2.4 MG/DL Total Bilirubin 0.5 0.1-1.0 MG/DL Aspartate Amino Transf (AST/SGOT) 30 5-34 U/L Alanine Aminotransferase (ALT/SGPT) 143 H 0-55 U/L Alkaline Phosphatase 56 40-136 U/L Total Protein 4.6 L 6.4-8.2 GM/DL Albumin 2.5 L 3.2-4.5 GM/DL Test 06/15/22 11:52 06/15/22 15:12 06/15/22 17:30 Range/Units Glucometer 271 H 274 H 290 H 70-110 MG/DL Radiology NAME: JAYDENNOAHENA Conte MED REC#: [id number] PT STATUS: REG ER : 1960 PHYSICIAN: EDGARDO FRANCE APRN ADMIT DATE: 06/05/22/ER Signed Date of Exam:06/05/22 CHEST 1 VIEW, AP/PA ONLY EXAMINATION: Chest 1 view HISTORY: Shortness of breath. COMPARISON: 06/01/2022. FINDINGS: Hazy opacities are seen in the left lung base. Chronic fibrotic changes are seen in both lung bases. The lungs are hyperinflated. The heart size is normal. There is calcified aortic atherosclerotic plaque. Radiopaque material is seen in the left chest, similar to the prior exam. IMPRESSION: 1. Hazy opacities in the left lung base, which may represent atelectasis or infection. 2. Hyperinflated lung volumes with chronic fibrotic changes. Dictated by: Dictated on workstation # [id number] Dict: 06/05/22 1503 Trans: 06/05/22 1516 AS6 [id number] Interpreted by: AN MELENDEZ DO Electronically signed by: AN MELENDEZ DO 06/05/22 1516 Physical Exam Physical Exam Vital Signs Vital Signs - First Documented 06/09/22 06/09/22 06/09/22 00:00 02:56 04:00 Temp 37.2 Pulse 81 Resp 17 B/P (MAP) 115/66 (82) Pulse Ox 99 O2 Delivery Mechanical Ventilator O2 Flow Rate 50.00 FiO2 50 Capillary Refill : Less Than 3 Seconds Height, Weight, BMI Height: 5'8.00" Weight: 200lbs. 0.0oz. 90.456763nr; 31.18 BMI Method:Stated General Appearance: Chronically ill, Other (Ventilatory dependent) Eyes: Bilateral Eye PERRL, Bilateral Eye EOMI HEENT: Other (Eyes closed - sedated) Neck: Non Tender, Supple Respiratory: No Accessory Muscle Use, No Respiratory Distress, Decreased Breath Sounds Cardiovascular: Regular Rate, Rhythm Gastrointestinal: Soft Rectal: Deferred Back: Normal Inspection, No Vertebral Tenderness Extremity: Other (bilateral LE sequential compression devices in place / Arterial Line in left wrist) Neurologic/Psychiatric: Other (Sedated) Skin: Ecchymosis (bilateral arms) A/P-Cardiology Admission Diagnosis Atrial fibrillation Tachycardia Ventilator dependent respiratory failure Coronary artery disease Assessment/Plan Atrial fibrillation/flutter with rapid ventricular response, Has been in and out of atrial fibrillation. Having episodes of tachycardia, was on short acting Cardizem orally Started on Cardizem drip, heart rate is better controlled Unable to tolerate amiodarone due to his underlying lung disease. Acute respiratory failure, ventilator dependent, acute exacerbation of COPD Possible transfer to [facility] long-term facility Pneumonia, receiving antibiotic Leukocytosis, worsening recently. Hypertension, blood pressure currently stable while receiving Cardizem drip. Coronary artery disease Cardiac catheterization was done in September 2018 with moderate disease nonobstructive disease, 50% mid vessel stenosis in the left anterior descending artery. Ejection fraction 65% Congestive heart failure, chronic left ventricular diastolic dysfunction, normal systolic function. Intolerance to AZ inhibitor and/or ARB due to hyperkalemia. Urinary obstruction. Carotid disease, ultrasound was done in October 2019. ARUN PACHECO MD Jun 15, 2022 18:33
[2022-06-15] MEDS: MONTELUKAST 10 MG (SINGULAIR) TAB PO SCH (20:37)
[2022-06-16] MEDS: fentaNYL DRIP PRE-MIX 250 ML IV SCH ×4 (00:11→23:41)
[2022-06-16] MEDS: ACETAMINOPHEN 325 MG TABLET PO PRN (00:11)
[2022-06-16] MEDS: PROPOFOL DRIP (ICU) 100 ML IV SCH ×3 (00:33→22:00)
[2022-06-16] MEDS: DexMEDEtomidine 250 ML DRIP 250 ML IV SCH ×2 (00:33→15:33)
[2022-06-16] MEDS: RT-IPRATROPIUM (ATROVENT) 0.5MG/2.5ML AMP IH SCH ×6 (02:42→21:28)
[2022-06-16 02:43] VITALS: BP 102/75
[2022-06-16 03:47] LABS: ABG BASE EXCESS 14.4 MMOL/L (-2.5-2.5); ABG OXYGEN SATURATION 98 % (94-100); ABG PCO2 64 MMHG (35-45); ABG PH 7.42 (7.37-7.43); ABG PO2 91 MMHG (79-93)
[2022-06-16 03:53] LABS: ALLENS TEST YES-POS; BASOPHILS % (AUTO) 0 % (0-10); EOSINOPHILS % (AUTO) 0 % (0-10); HEMATOCRIT 30 % (40-54); HEMOGLOBIN 9.5 g/dL (13.3-17.7); INSPIRED O2 45%; LYMPHOCYTES # (AUTO) 0.1 10^3/uL (1.0-4.0); LYMPHOCYTES % (AUTO) 1 % (12-44); MEAN CORPUSCULAR HEMOGLOBIN 28 pg (25-34); MEAN CORPUSCULAR HGB CONC 31 g/dL (32-36); MEAN CORPUSCULAR VOLUME 89 fL (80-99); MEAN PLATELET VOLUME 12.4 fL (9.0-12.2); MONOCYTES # (AUTO) 0.3 10^3/uL (0.0-1.0); MONOCYTES % (AUTO) 1 % (0-12); NEUTROPHILS # (AUTO) 22.6 10^3/uL (1.8-7.8); NEUTROPHILS % (AUTO) 97 % (42-75); PATIENT TEMP 37.7; PLATELET COUNT 139 10^3/uL (130-400); VENTILATOR YES; WHITE BLOOD COUNT 23.3 10^3/uL (4.3-11.0)
[2022-06-16 03:54] LABS: ABG TCO2 41.5 MMOL/L (21.0-31.0)
[2022-06-16 04:06] LABS: ALBUMIN 2.3 GM/DL (3.2-4.5); POTASSIUM 4.7 MMOL/L (3.6-5.0)
[2022-06-16 04:07] LABS: CALCIUM 7.5 MG/DL (8.5-10.1)
[2022-06-16 04:09] LABS: TOTAL PROTEIN 4.3 GM/DL (6.4-8.2)
[2022-06-16 04:10] LABS: BILIRUBIN,TOTAL 0.6 MG/DL (0.1-1.0)
[2022-06-16 04:12] LABS: CREATININE SERUM 0.6 MG/DL (0.60-1.30); PHOSPHORUS 3.6 MG/DL (2.3-4.7)
[2022-06-16 04:15] LABS: MAGNESIUM 2.2 MG/DL (1.6-2.4)
[2022-06-16] MEDS: MAGNESIUM 1 GM/100 ML IVPB 100 ML IV SCH (05:38)
[2022-06-16] MEDS: POTASSIUM CL 10MEQ/50ML IVPB 50 ML IV SCH (05:38)
[2022-06-16] MEDS: KCL 20 MEQ TAB (K-DUR) PO SCH (05:39)
[2022-06-16] MEDS: methylPREDNISolone 125 MG (Solu-MEDROL) VIAL IVP SCH ×3 (06:05→21:35)
[2022-06-16] MEDS: inSUlin ASPART (NovoLOG) 1 UNIT/0.01 ML (CHARGE PER UNIT) SC SCH ×4 (06:05→23:52)
[2022-06-16] MEDS: MEROPENEM 500 MG/NS 100 ML IVPB IV SCH ×8 (06:06→23:46)
[2022-06-16] MEDS: morphine IMMEDIATE RELEASE 15 MG TABLET PO SCH ×4 (06:06→23:56)
[2022-06-16 07:29] VITALS: BP 83/63
[2022-06-16] MEDS: dilTIAZem DRIP PRE-MIX 125 ML IV SCH ×2 (07:40→15:40)
[2022-06-16] MEDS: TAMSULOSIN 0.4 MG (FLOMAX) CAP PO SCH (08:12)
[2022-06-16] MEDS: APIXABAN 5 MG (ELIQUIS) TABLET PO SCH ×2 (08:12→20:59)
[2022-06-16] MEDS: FLUCONAZOLE 100 MG/50 ML 50 ML IV SCH (08:12)
[2022-06-16] MEDS: DOCUSATE SODIUM 10 MG/ML 10 ML UDC (COLACE) PO SCH ×2 (08:12→20:58)
[2022-06-16] MEDS: LORATADINE (CLARITIN) 10 MG TAB PO SCH (08:12)
[2022-06-16] MEDS: SENNOSIDES 8.6 MG (SENOKOT) TAB PO SCH ×2 (08:12→20:59)
[2022-06-16] MEDS: PANTOPRAZOLE 40 MG (PROTONIX) VIAL IV SCH (08:12)
[2022-06-16] MEDS: ROFLUMILAST 500 MCG TAB (DALIRESP) PO SCH (08:12)
[2022-06-16] MEDS: meTOprolol 5 MG/5 ML (LOPRESSOR) VIAL IV PRN ×2 (08:52→13:52)
--- NOTE | 2022-06-16 09:06 | Tele-ICU Progress Note ---
Subjective Date Seen by a Provider: Jun 16, 2022 Time Seen by a Provider: 09:05 Subjective/Events-last exam today he is having periods of afib with rvr up to 147/mt requiring prn iv metoprolol in addition to cardizem drip. not ready for SBT today. trying to transfer him to LTAC.. will check with cards if he would benefit from scheduled doses of metoprolol instead of prn doses. Sepsis Event Evaluation Height, Weight, BMI Height: 5'8.00" Weight: 200lbs. 0.0oz. 90.116969tw; 31.95 BMI Method:Stated Exam Exam Patient acknowledged, consented, and participated in this virtual visit which was conducted using real time audio/video Vital Signs Date Time Temp Pulse Resp B/P (MAP) Pulse Ox O2 Delivery O2 Flow Rate FiO2 06/16/22 08:00 37.8 107 37 150/102 (118) 96 Mechanical Ventilator 45.00 06/16/22 07:44 107 93/64 06/16/22 07:40 107 93/64 06/16/22 07:29 107 20 96 45 06/16/22 07:00 108 06/16/22 07:00 37.8 107 21 80/68 (72) 96 Mechanical Ventilator 45.00 06/16/22 06:00 37.7 108 16 103/78 (86) 96 Mechanical Ventilator 45.00 06/16/22 05:00 37.2 108 13 102/73 (83) 95 Mechanical Ventilator 45.00 06/16/22 04:33 109 109/78 06/16/22 04:11 109 109/78 06/16/22 04:11 109 109/78 06/16/22 04:00 37.8 109 36 114/74 (87) 95 Mechanical Ventilator 45.00 06/16/22 04:00 95 Mechanical Ventilator 45 06/16/22 03:00 37.5 109 19 109/78 (88) 95 Mechanical Ventilator 45.00 06/16/22 02:43 107 20 96 45 06/16/22 02:00 37.3 112 19 104/71 (82) 95 Mechanical Ventilator 45.00 06/16/22 01:00 147 06/16/22 01:00 37.3 144 27 109/69 (82) 94 Mechanical Ventilator 45.00 2/17/23 00:33 107 102/75 2/17/23 00:33 107 102/75 06/16/22 00:26 38.1 06/16/22 00:11 107 102/75 06/16/22 00:11 38.1 06/16/22 00:09 38.1 06/16/22 00:00 37.6 126 21 113/78 (90) 93 Mechanical Ventilator 45.00 06/15/22 23:59 96 Mechanical Ventilator 45 06/15/22 23:05 107 20 96 45 06/15/22 23:00 37.7 116 22 103/78 (86) 94 Mechanical Ventilator 45.00 06/15/22 22:25 107 110/70 06/15/22 22:00 37.5 107 32 110/70 (83) 95 Mechanical Ventilator 45.00 06/15/22 21:46 107 102/75 06/15/22 21:00 37.7 112 20 103/75 (84) 95 Mechanical Ventilator 45.00 06/15/22 20:00 37.8 107 21 104/69 (81) 94 Mechanical Ventilator 45.00 06/15/22 20:00 96 Mechanical Ventilator 45 06/15/22 19:21 39.0 06/15/22 19:00 37.4 107 13 103/71 (82) 97 Mechanical Ventilator 45.00 06/15/22 19:00 107 06/15/22 18:47 107 20 96 45 06/15/22 18:00 36.4 108 16 101/72 (82) 95 Mechanical Ventilator 45.00 06/15/22 17:00 36.4 138 20 107/73 (84) 93 Mechanical Ventilator 45.00 06/15/22 16:00 37.1 137 17 104/75 (83) 93 Mechanical Ventilator 45.00 06/15/22 16:00 93 Mechanical Ventilator 45 06/15/22 15:51 37.5 06/15/22 15:28 37.0 107 95 06/15/22 15:00 37 128 19 103/79 (89) 95 Mechanical Ventilator 45.00 06/15/22 14:52 107 20 95 45 06/15/22 14:00 37.5 106 18 104/68 (80) 94 Mechanical Ventilator 45.00 06/15/22 13:00 37.6 105 20 99/64 (77) 94 Mechanical Ventilator 45.00 06/15/22 12:54 105 06/15/22 12:16 105 06/15/22 12:07 122 113/65 06/15/22 12:00 37.6 138 23 113/65 (81) 94 Mechanical Ventilator 45.00 06/15/22 12:00 93 Mechanical Ventilator 45 06/15/22 11:59 140 133/83 06/15/22 11:45 35.6 06/15/22 11:18 135 20 95 45 06/15/22 11:00 37.8 141 9 106/72 (77) 95 Mechanical Ventilator 45.00 06/15/22 10:46 135 112/68 06/15/22 10:01 37.9 06/15/22 10:00 37.9 116 22 116/57 (85) 94 Mechanical Ventilator 45.00 06/15/22 09:45 116 112/80 06/15/22 09:12 38.3 I & O 06/16/22 07:00 Intake Total 4355 ml Output Total 2250 ml Balance 2105 ml Height & Weight Height: 5'8.00" Weight: 200lbs. 0.0oz. 90.112009rc; 31.95 BMI Method:Stated General Appearance: Chronically ill, Other (Ventilatory dependent) HEENT: Other (Eyes closed - sedated) Neck: Non Tender, Supple Respiratory: No Accessory Muscle Use, No Respiratory Distress, Decreased Breath Sounds Cardiovascular: Regular Rate, Rhythm Capillary Refill: Less Than 3 Seconds Peripheral Pulses: 2+ Radial Pulses (R), 2+ Radial Pulses (L) Gastrointestinal: normal bowel sounds, non tender, soft Extremity: Other (bilateral LE sequential compression devices in place / Arterial Line in left wrist) Neurologic/Psychiatric: Other (Sedated) Skin: Ecchymosis (bilateral arms) Other comments PE PER RN Results Lab Laboratory Tests 06/15/22 03:20 06/16/22 03:39 Assessment/Plan Assessment/Plan 1. ACUTE AND CHR. RESPIRATORY FAILURE REQUIRING INTUBATION AND MECHANICAL VENTILLATION. 2.AECOPD 3.AFIB WITH RVR 4. ANXIETY DISORDER. 4. POSSIBLE RLL PNEUMONIA. 5. HYPERGYCEMIA 6. ANEMIA CHRONIC. PLAN 1. CONTINUE CURRENT VENT SETTINGS. NOT READY FOR SBT TODAY 2. CONTINUE IV ABX'S. 3. AFIB WITH RVR MANAGEMNET PER CARDS. 4. CONTINUE BRONCHO DILATORS AND STEROIDS 5. ISS 6. DVT AND ULCER PROPHYLAXIS. 7. MONITOR HB. 8. HE MAY NEED TRACH AND PEG SOON. 9. AGREE WITH LTACH PLACEMENT. Care coordination with bedside specialists and primary care physicians Critical Care: Ventilator Management Time spent with patient (mins): 32 ROZINA COVINGTON MD Jun 16, 2022 09:06
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
[2022-06-16] MEDS ORDERED: DIGOXIN 0.25 MG/ML (LANOXIN) 2 ML AMP IV ONE (10:30)
[2022-06-16 10:51] VITALS: BP 104/59
[2022-06-16] MEDS: RT--FLUTICASONE/SALMETEROL 232-14 (AIRDUO RespiCLICK) IH SCH (10:51)
--- NOTE | 2022-06-16 11:10 | Progress Note ---
Subjective Subjective/Events-last exam Intubated and sedated. ON Events: Patient continued to have episodes of tachycardia into the 160s. Review of Systems Unable to review Objective Exam Last Set of Vital Signs Vital Signs Date Time Temp Pulse Resp B/P (MAP) Pulse Ox O2 Delivery O2 Flow Rate FiO2 06/16/22 10:51 106 20 95 45 06/16/22 10:00 37.4 109/75 (86) Mechanical Ventilator 45.00 Capillary Refill : Less Than 3 Seconds I&O Intake and Output 06/16/22 00:00 Intake Total 3463 ml Output Total 2475 ml Balance 988 ml Intake Oral 0 ml IV Total 528 ml Tube Feeding 1215 ml Enteral Flush 700 ml Other 1020 ml Output Urine Total 2475 ml General: Other (opens eyes to name) Lungs: Other (diminished breath sounds, belly breathing, end exp wheezing) Heart: Other (tachycardic rate) Abdomen: Soft Extremities: Other (2+ pitting edema UE bilaterally) Results/Procedures Lab Laboratory Tests 06/15/22 11:52: Glucometer 271H 06/15/22 15:12: Glucometer 274H 06/15/22 17:30: Glucometer 290H 06/15/22 23:45: Glucometer 263H 06/16/22 03:39: White Blood Count 23.3H, Red Blood Count 3.41L, Hemoglobin 9.5L, Hematocrit 30L, Mean Corpuscular Volume 89, Mean Corpuscular Hemoglobin 28, Mean Corpuscular Hemoglobin Concent 31L, Red Cell Distribution Width 17.5H, Platelet Count 139, Mean Platelet Volume 12.4H, Immature Granulocyte % (Auto) 1, Neutrophils (%) (Auto) 97H, Lymphocytes (%) (Auto) 1L, Monocytes (%) (Auto) 1, Eosinophils (%) (Auto) 0, Basophils (%) (Auto) 0, Neutrophils # (Auto) 22.6H, Lymphocytes # ( Auto) 0.1L, Monocytes # (Auto) 0.3, Eosinophils # (Auto) 0.0, Basophils # (Auto) 0.0, Immature Granulocyte # (Auto) 0.2H, Blood Gas Puncture Site r rad, Blood Gas Patient Temperature 37.7, Arterial Blood pH 7.42, Arterial Blood Partial Pressure CO2 64H, Arterial Blood Partial Pressure O2 91, Arterial Blood HCO3 40H , Arterial Blood Total CO2 41.5*H, Arterial Blood Oxygen Saturation 98, Arterial Blood Base Excess 14.4H, Jeff Test YES-POS, Blood Gas Ventilator Setting YES, Blood Gas Inspired Oxygen 45%, Sodium Level 148H, Potassium Level 4.7, Chloride Level 104, Carbon Dioxide Level 36H, Anion Gap 8, Blood Urea Nitrogen 45H, Creatinine 0.60, Estimat Glomerular Filtration Rate 109, BUN/Creatinine Ratio 75, Glucose Level 248H, Calcium Level 7.5L, Corrected Calcium 8.9, Phosphorus Level 3.6, Magnesium Level 2.2, Total Bilirubin 0.6, Aspartate Amino Transf (AST/SGOT) 32, Alanine Aminotransferase (ALT/SGPT) 104H, Alkaline Phosphatase 49, Total Protein 4.3L, Albumin 2.3L Microbiology 06/14/22 Blood Culture - Preliminary, Resulted No growth 06/13/22 Gram Stain - Final, Resulted 06/13/22 Sputum Culture - Preliminary, Resulted Serratia marcescens Usual upper respiratory theo 06/05/22 Urine Culture - Final, Complete NO GROWTH Radiology NAME: KAYA CARPENTER [facility] REC#: [id number] PT STATUS: REG ER : 1960 PHYSICIAN: EDGARDO FRANCE CONFERENCE RESERVATIONIST ADMIT DATE: 06/05/22/ER Signed Date of Exam:06/05/22 CHEST 1 VIEW, AP/PA ONLY EXAMINATION: Chest 1 view HISTORY: Shortness of breath. COMPARISON: 06/01/2022. FINDINGS: Hazy opacities are seen in the left lung base. Chronic fibrotic changes are seen in both lung bases. The lungs are hyperinflated. The heart size is normal. There is calcified aortic atherosclerotic plaque. Radiopaque material is seen in the left chest, similar to the prior exam. IMPRESSION: 1. Hazy opacities in the left lung base, which may represent atelectasis or infection. 2. Hyperinflated lung volumes with chronic fibrotic changes. Dictated by: Dictated on workstation # [id number] Dict: 06/05/22 1503 Trans: 06/05/22 1516 AS6 [id number] Interpreted by: AN MELENDEZ DO Electronically signed by: AN MELENDEZ DO 06/05/22 1516 Assessment/Plan Assessment/Plan (1) Sepsis Status: Acute Assessment & Plan: 06/12: Continue IV antibiotics, IVFs, eICU managing vent 06/13: Repeat blood cultures today, start cefepime and Vanc due to jump in WBC 06/14: Blood pressures have trended down, continue broad spec antibiotics, WBC trending down, repeat blood cultures pending 06/15: changed to Meropenum today due to fevers and WBC, d/c Cefepime 06/16: WBC trending down, will continue Meropneum/Vanc/Diflucan, working on LTAC placement vs comfort care Qualifiers: Qualified Codes: A41.9 - Sepsis, unspecified organism; R65.20 - Severe sepsis without septic shock; J96.01 - Acute respiratory failure with hypoxia (2) Acute on chronic respiratory failure with hypoxia and hypercapnia Status: Acute Assessment & Plan: 06/13: eICU for vent management (3) COPD exacerbation Status: Acute (4) Pneumonia Status: Acute (5) Atrial fibrillation with RVR Status: Chronic Assessment & Plan: 06/12: Cardiology consulted, appreciate recommendations 06/16: Cardizem drip and BB PRN (6) Tachycardia Status: Acute Assessment & Plan: 06/15: does not seem to be A fib, will notify cardiology that we would like them to see patient again, Lopressor added last night by eICU (7) Discharge planning issues Assessment & Plan: 06/13: Spoke with family today in meeting. Discussed shelter goals and prognosis. Patient is still guarded. Patient may need LTAC placement as he will be a long titration. At this time they would like to keep him Full Code 06/15: and son in room this AM, discussed course with them that he is getting worse and needing additional support, not candidate for vent SBT at this time RO HALL MD Jun 16, 2022 11:10
[2022-06-16] MEDS: MULTIVIT W/MINERALS TAB (THERAGRAN M) PO SCH (11:33)
--- NOTE | 2022-06-16 12:11 | Cardiology Progress Note ---
Subjective Date Seen by Provider: Jun 16, 2022 Time Seen by Provider: 12:08 Subjective/Events-last exam Patient was seen at bedside, sedated and intubated. Review of Systems General: Other (Unable to provide review of system) Objective-Cardiology Exam Last Set of Vital Signs Vital Signs 06/16/22 06/16/22 10:51 12:00 Temp 37.6 Pulse 107 Resp 15 B/P (MAP) 94/66 (75) Pulse Ox 95 O2 Delivery Mechanical Ventilator O2 Flow Rate 45.00 FiO2 45 I&O Intake and Output 06/16/22 00:00 Intake Total 3463 ml Output Total 2475 ml Balance 988 ml Intake Oral 0 ml IV Total 528 ml Tube Feeding 1215 ml Enteral Flush 700 ml Other 1020 ml Output Urine Total 2475 ml General: Other (opens eyes to name) HEENT: Atraumatic Neck: Supple, No JVD Lungs: Other (diminished breath sounds, belly breathing, end exp wheezing) Heart: Other (tachycardic rate) Abdomen: Soft Extremities: Other (2+ pitting edema UE bilaterally) Neuro: Normal Speech, Cranial Nerves 3-12 NL Psych/Mental Status: Mental Status NL Results Lab Laboratory Tests 06/16/22 03:39 A/P-Cardiology Admission Diagnosis Atrial fibrillation Tachycardia Ventilator dependent respiratory failure Coronary artery disease Assessment/Plan Atrial fibrillation/flutter with rapid ventricular response, Has been in and out of atrial fibrillation. Having episodes of tachycardia, was on short acting Cardizem orally Started on Cardizem drip, heart rate is better controlled Unable to tolerate amiodarone due to his underlying lung disease. I will add digoxin and evaluate tolerance and response Acute respiratory failure, ventilator dependent, acute exacerbation of COPD Possible transfer to [facility] long-term facility Pneumonia, receiving antibiotic Leukocytosis, worsening recently. Hypertension, blood pressure currently stable while receiving Cardizem drip. Coronary artery disease Cardiac catheterization was done in September 2018 with moderate disease nonobstructive disease, 50% mid vessel stenosis in the left anterior descending artery. Ejection fraction 65% Congestive heart failure, chronic left ventricular diastolic dysfunction, normal systolic function. Intolerance to AZ inhibitor and/or ARB due to hyperkalemia. Urinary obstruction. Carotid disease, ultrasound was done in October 2019. ARUN PACHECO MD Jun 16, 2022 12:11
[2022-06-16] MEDS: BACLOFEN 10 MG (LIORESAL) TAB PO SCH ×2 (13:53→17:38)
[2022-06-16] MEDS ORDERED: FUROSEMIDE 40 MG/4 ML INJ (LASIX) IVP NR (14:00)
[2022-06-16 14:32] VITALS: BP 105/70
[2022-06-16 18:50] VITALS: BP 94/78
[2022-06-16] MEDS: MONTELUKAST 10 MG (SINGULAIR) TAB PO SCH (20:59)
[2022-06-16 21:28] VITALS: BP 82/52
[2022-06-16] MEDS ORDERED: ALBUMIN 5% 12.5 GM/250 ML 250 ML IV ONE (21:30)
--- NOTE | 2022-06-16 21:38 | Tele-ICU Progress Note ---
Progress Note eICU- Brief intervention eICU Nursing called because pt's BP has been running low on the cardizem drip this PM, she has now shut it off. HR is maintained at 105 in afib, sats 97% BP 82/52- had dropped to systolic 69 when cardizem was running. Clinically edematous and labs show Na 148 K 4.7 Cl 14 bicarb 36 BUN 45 Cr 0.6 Total Protein is 4.3 Albumin 2.3 Hgb 9.5 Plan- 5% albumin 250 mls supplement now and monitor- keep cardizem on hold provided HR is maintained adequately until the BP is restored with some improved oncotic pressure- will consider 25% albumin also supplement tonight if needed. Focused Exam Height, Weight, BMI Height: 5'8.00" Weight: 200lbs. 0.0oz. 90.338639oe; 31.95 BMI Method:Stated MARISA SIMMS DO Jun 16, 2022 21:38
[2022-06-17 02:09] VITALS: BP 83/64
[2022-06-17] MEDS: RT-IPRATROPIUM (ATROVENT) 0.5MG/2.5ML AMP IH SCH ×6 (02:09→22:14)
[2022-06-17 04:03] LABS: BASOPHILS % (AUTO) 0 % (0-10); EOSINOPHILS % (AUTO) 0 % (0-10)
[2022-06-17 04:05] LABS: HEMATOCRIT 27 % (40-54); HEMOGLOBIN 8.5 g/dL (13.3-17.7); LYMPHOCYTES # (AUTO) 0.2 10^3/uL (1.0-4.0); LYMPHOCYTES % (AUTO) 1 % (12-44); MEAN CORPUSCULAR HEMOGLOBIN 28 pg (25-34); MEAN CORPUSCULAR HGB CONC 32 g/dL (32-36); MEAN CORPUSCULAR VOLUME 89 fL (80-99); MEAN PLATELET VOLUME 13.2 fL (9.0-12.2); MONOCYTES # (AUTO) 0.2 10^3/uL (0.0-1.0); MONOCYTES % (AUTO) 2 % (0-12); NEUTROPHILS # (AUTO) 13.9 10^3/uL (1.8-7.8); NEUTROPHILS % (AUTO) 96 % (42-75); PLATELET COUNT 106 10^3/uL (130-400); WHITE BLOOD COUNT 14.5 10^3/uL (4.3-11.0)
[2022-06-17 04:22] LABS: ALBUMIN 2.2 GM/DL (3.2-4.5); CALCIUM 7.1 MG/DL (8.5-10.1); CREATININE SERUM 0.5 MG/DL (0.60-1.30); POTASSIUM 3.7 MMOL/L (3.6-5.0); TOTAL PROTEIN 4.1 GM/DL (6.4-8.2)
[2022-06-17] MEDS: POTASSIUM CL 10MEQ/50ML IVPB 50 ML IV SCH ×3 (04:31→05:33)
[2022-06-17] MEDS: MEROPENEM 500 MG/NS 100 ML IVPB IV SCH ×6 (05:33→17:17)
[2022-06-17] MEDS: methylPREDNISolone 125 MG (Solu-MEDROL) VIAL IVP SCH ×3 (05:33→21:07)
[2022-06-17] MEDS: MAGNESIUM 1 GM/100 ML IVPB 100 ML IV SCH (05:33)
[2022-06-17] MEDS: KCL 20 MEQ TAB (K-DUR) PO SCH (05:34)
[2022-06-17] MEDS: morphine IMMEDIATE RELEASE 15 MG TABLET PO SCH ×3 (05:34→17:16)
[2022-06-17] MEDS: inSUlin ASPART (NovoLOG) 1 UNIT/0.01 ML (CHARGE PER UNIT) SC SCH ×3 (05:35→19:25)
[2022-06-17] MEDS: DexMEDEtomidine 250 ML DRIP 250 ML IV SCH ×2 (06:25→21:06)
[2022-06-17 07:27] VITALS: BP 88/61
[2022-06-17] MEDS: FLUCONAZOLE 100 MG/50 ML 50 ML IV SCH (08:22)
[2022-06-17] MEDS: PROPOFOL DRIP (ICU) 100 ML IV SCH ×2 (08:22→17:17)
[2022-06-17] MEDS: TAMSULOSIN 0.4 MG (FLOMAX) CAP PO SCH (08:23)
[2022-06-17] MEDS: DOCUSATE SODIUM 10 MG/ML 10 ML UDC (COLACE) PO SCH ×2 (08:23→21:06)
[2022-06-17] MEDS: PANTOPRAZOLE 40 MG (PROTONIX) VIAL IV SCH (08:23)
[2022-06-17] MEDS: SENNOSIDES 8.6 MG (SENOKOT) TAB PO SCH ×2 (08:23→21:06)
[2022-06-17] MEDS: APIXABAN 5 MG (ELIQUIS) TABLET PO SCH ×2 (08:23→21:06)
[2022-06-17] MEDS: LORATADINE (CLARITIN) 10 MG TAB PO SCH (08:23)
[2022-06-17] MEDS: ROFLUMILAST 500 MCG TAB (DALIRESP) PO SCH (08:24)
[2022-06-17] MEDS: fentaNYL DRIP PRE-MIX 250 ML IV SCH ×2 (08:26→16:27)
[2022-06-17] MEDS: DIGOXIN 0.25 MG/ML (LANOXIN) 2 ML AMP IV SCH (10:00)
[2022-06-17 10:28] VITALS: BP 88/61
--- NOTE | 2022-06-17 11:03 | Progress Note - Hospitalist ---
Subjective HPI/CC On Admission Date Seen by Provider: Jun 17, 2022 Time Seen by Provider: 08:00 Kaya Carpenter, 61 yo M, with a past medical history of COPD, hypertension, hyperlipidemia, gastroesophageal reflux disease, hypothyroidism, and diastolic heart failure, presents to ED with a chief complaint of Respiratory Problems, noting elevated heart rate and low O2. He was discharged from [facility] earlier today after formerly being admitted for acute respiratory failure with hypoxia and respiratory acidosis, likely secondary to AECOPD and right middle lobe PNA. On interview, Kaya is sitting up in his ER bed wearing a BiPAP. His is present in the room. He is in mild respiratory distress. Patient states that he was being driven home by his earlier this afternoon when suddenly his heart rate spiked to 177 with an O2 sat of 90%. Shortly after his heart rate jumped again to 189 with an O2 sat of 87%. Therefore, they re-routed back to ED. He was wearing 6L O2 via nasal cannula at the time. Subjective/Events-last exam Patient sedated on mechanical ventilation appears to be in no acute distress. Objective Exam Vital Signs Vital Signs Date Time Temp Pulse Resp B/P (MAP) Pulse Ox O2 Delivery O2 Flow Rate FiO2 06/17/22 10:28 106 20 98 40 06/17/22 10:00 35.9 90/61 (71) Mechanical Ventilator 45.00 Capillary Refill : Less Than 3 Seconds General Appearance: No Apparent Distress, Chronically ill Respiratory: Other (Markedly diminished breath sounds throughout no rhonchi noted anteriorly no wheezing) Cardiovascular: Irregularly Irregular, Other ( no murmur appreciated but heart sounds distant increased AP diameter of the chest noted.) Gastrointestinal: Normal Bowel Sounds, Soft Extremity: Other ( 3+ edema on the upper extremities symmetrical 2+ in the lower extremities symmetrical) Results/Procedures Lab Laboratory Tests 06/17/22 03:40 Patient resulted labs reviewed. Imaging: Reviewed Imaging Report Procedures NAME: KAYA CARPENTER [facility] REC#: [id number] : 1960 ADMIT DATE: 06/05/22 PHYSICIAN: BONI TERRAZAS CRNA PROCEDURE REPORT Procedures/Interventions Procedure Start/Stop/Diagnosis Date of Procedure: Jun 08, 2022 Start Time: 11:10 Referring Physician: Saman Preprocedural Diagnosis: Respiratory Failure Brief History Called by dope house operator helper for intubation and A-Line request per Dr. Davison for acute respiratory failure. On arrival pt opened eyes to command but was tachycardic and dyspneic on bipap. Consent obtained from . Etomidate 14mg and Anectine 120mg for RSI. Ventilated with BVM 100%. VL with ICU Glidescope grade 1 view with #8.0 ETT passing easily and secured by RT aprox 23cm at lip with tube nielsen. BS coarse b/l, +ETCO2 color change with EZcap. After intubation was completed, left wrist was prepped with chloraprep and #20 g Arrow A-line placed x2 attempt. Good blood return and waveform on monitor. Catheter secured with sterile op site and secured with tape per AUTOMATIC BEAM WARPER TENDER. Report to RN. Stop Time: 11:28 Postprocedural Diagnosis: Respiratory Failure Intubation RSI: Yes 100% pre-Ox, [id number]: Yes Intubation Method: orotracheal Videoscope used: Yes Medications: Etomidate Mask Ventilation: positive Positive End Tide CO2: Yes Breath Sounds after Intubation: bilateral-equal Intubated with ease: Yes Intubation Complications: no complications Post Intubation Xray-done: Yes Arterial Line Arterial Line Catheter: 20G Type: Radial Location: Left Procedure: prepped, draped in sterile fashion, good wave-form was obtained, patient tolerated procedure well, no immediate complications, post procedure area cleaned, post procedure dressing applied BONI TERRAZAS CRNA Jun 08, 2022 11:46 [id number] <Created by BONI TERRAZAS CRNA> <Electronically signed by BONI TERRAZAS CRNA> 06/08/22 1148 Assessment/Plan Assessment and Plan Assess & Plan/Chief Complaint (1) Sepsis Status: Acute Assessment & Plan: 06/12: Continue IV antibiotics, IVFs, eICU managing vent 06/13: Repeat blood cultures today, start cefepime and Vanc due to jump in WBC 06/14: Blood pressures have trended down, continue broad spec antibiotics, WBC trending down, repeat blood cultures pending 06/15: changed to Meropenum today due to fevers and WBC, d/c Cefepime 06/16: WBC trending down, will continue Meropneum/Vanc/Diflucan, working on LTAC placement vs comfort care 2/18 presumed pneumonia with sepsis in an individual with acute on chronic hypercapnic respiratory failure. This is further complicated by atrial fibrillation with rapid ventricular response. I return to discuss poor prognosis with his who reports that his quality of life previous to this admission had been quite poor. She has been of the mindset that he is not going to recover which I am in total agreement with that. There is 1 son that is qu ite hesitant and they would like to further discuss comfort care with their regular physician Dr. Mai before making final decision on comfort care. Prognosis guarded. Qualifiers: Qualified Codes: A41.9 - Sepsis, unspecified organism; R65.20 - Severe sepsis without septic shock; J96.01 - Acute respiratory failure with hypoxia (2) Acute on chronic respiratory failure with hypoxia and hypercapnia Status: Acute Assessment & Plan: 06/13: eICU for vent management (3) COPD exacerbation Status: Acute (4) Pneumonia Status: Acute (5) Atrial fibrillation with RVR Status: Chronic Assessment & Plan: 06/12: Cardiology consulted, appreciate recommendations 06/16: Cardizem drip and BB PRN (6) Tachycardia Status: Acute Assessment & Plan: 06/15: does not seem to be A fib, will notify cardiology that we would like them to see patient again, Lopressor added last night by eICU (7) Discharge planning issues Assessment & Plan: 06/13: Spoke with family today in meeting. Discussed fci goals and prognosis. Patient is still guarded. Patient may need LTAC placement as he will be a long titration. At this time they would like to keep him Full Code 06/15: and son in room this AM, discussed course with them that he is getting worse and needing additional support, not candidate for vent SBT at this time Critical Care Ventilator Management YUNG BETH MD Jun 17, 2022 11:03
--- NOTE | 2022-06-17 11:46 | Cardiology Progress Note ---
Subjective Date Seen by Provider: Jun 17, 2022 Time Seen by Provider: 11:45 Subjective/Events-last exam Patient was seen at bedside, sedated and intubated Review of Systems General: Other (Unable to provide review of system) Objective-Cardiology Exam Last Set of Vital Signs Vital Signs 06/17/22 06/17/22 10:00 10:28 Temp 35.9 Pulse 106 Resp 20 B/P (MAP) 90/61 (71) Pulse Ox 98 O2 Delivery Mechanical Ventilator O2 Flow Rate 45.00 FiO2 40 I&O Intake and Output 06/17/22 00:00 Intake Total 5020 ml Output Total 3150 ml Balance 1870 ml Intake Oral 0 ml IV Total 2100 ml Tube Feeding 1200 ml Enteral Flush 400 ml Other 1320 ml Output Urine Total 3150 ml General: Other (opens eyes to name) HEENT: Atraumatic Neck: Supple, No JVD Lungs: Other (diminished breath sounds, belly breathing, end exp wheezing) Heart: Other (tachycardic rate) Abdomen: Soft Extremities: Other (2+ pitting edema UE bilaterally) Neuro: Normal Speech, Cranial Nerves 3-12 NL Psych/Mental Status: Mental Status NL Results Lab Laboratory Tests 06/17/22 03:40 A/P-Cardiology Admission Diagnosis Atrial fibrillation Tachycardia Ventilator dependent respiratory failure Coronary artery disease Assessment/Plan Atrial fibrillation/flutter with rapid ventricular response, Has been in and out of atrial fibrillation. Having episodes of tachycardia, was on short acting Cardizem orally Started on Cardizem drip, was held due to hypotension Unable to tolerate amiodarone due to his underlying lung disease. Added digoxin for better heart rate control Acute respiratory failure, ventilator dependent, acute exacerbation of COPD Possible transfer to [facility] on long-term facility Pneumonia, receiving antibiotic Leukocytosis, worsening recently. Hypertension, blood pressure currently stable while receiving Cardizem drip. Coronary artery disease Cardiac catheterization was done in September 2018 with moderate disease nonobstructive disease, 50% mid vessel stenosis in the left anterior descending artery. Ejection fraction 65% Congestive heart failure, chronic left ventricular diastolic dysfunction, normal systolic function. Intolerance to AZ inhibitor and/or ARB due to hyperkalemia. Urinary obstruction. Carotid disease, ultrasound was done in October 2019. ARUN PACHECO MD Jun 17, 2022 11:46
[2022-06-17] MEDS: MULTIVIT W/MINERALS TAB (THERAGRAN M) PO SCH (12:02)
[2022-06-17] MEDS: BACLOFEN 10 MG (LIORESAL) TAB PO SCH ×2 (12:02→17:16)
--- NOTE | 2022-06-17 13:17 | Tele-ICU Progress Note ---
Subjective Date Seen by a Provider: Jun 17, 2022 Time Seen by a Provider: 13:12 Subjective/Events-last exam (Tele-ICU Physician , consultation) Available chart/ vitals / labs / Images reviewed H&P is from ER notes Patient's information available about PMH, allergy reviewed in EMR. ROS as per chart and RN report Video assessment done using teleICU camera, rest of exam as per RN Discussed with RN. Today patient became hypotensive and had atrial fibrillation with rapid ventricular rate. He is off the Cardizem drip due to low blood pressure. He is given IV albumin to improve oncotic pressure and blood pressure. Also started on IV digoxin daily. Sepsis Event Evaluation Height, Weight, BMI Height: 5'8.00" Weight: 200lbs. 0.0oz. 90.218064mq; 31.95 BMI Method:Stated Exam Exam Patient acknowledged, consented, and participated in this virtual visit which was conducted using real time audio/video Vital Signs Date Time Temp Pulse Resp B/P (MAP) Pulse Ox O2 Delivery O2 Flow Rate FiO2 06/17/22 12:00 36.1 111 17 98/73 (81) 96 Mechanical Ventilator 45.00 06/17/22 11:00 35.9 107 25 97/68 (78) 96 Mechanical Ventilator 45.00 06/17/22 10:30 110 97/68 06/17/22 10:28 106 20 98 40 06/17/22 10:00 35.9 107 16 90/61 (71) 98 Mechanical Ventilator 45.00 06/17/22 09:00 36.4 106 20 96/63 (74) 98 Mechanical Ventilator 45.00 06/17/22 08:26 106 90/65 06/17/22 08:22 106 90/65 06/17/22 08:00 34.4 107 15 98/63 (75) 98 Mechanical Ventilator 45.00 06/17/22 07:27 108 20 98 45 06/17/22 07:20 99 Mechanical Ventilator 45 06/17/22 07:00 107 06/17/22 07:00 35.8 107 19 85/59 (68) 98 Mechanical Ventilator 45.00 06/17/22 06:25 107 86/60 06/17/22 06:00 35.6 107 13 94/65 (75) 99 Mechanical Ventilator 45.00 2/18/23 05:00 35.6 107 13 86/62 (70) 99 Mechanical Ventilator 45.00 06/17/22 04:00 94 Mechanical Ventilator 45 06/17/22 04:00 36.1 107 19 85/61 (69) 99 Mechanical Ventilator 45.00 06/17/22 03:00 36.2 107 22 86/60 (69) 99 Mechanical Ventilator 45.00 06/17/22 02:09 107 20 99 45 06/17/22 02:00 36.4 107 20 90/59 (69) 100 Mechanical Ventilator 45.00 06/17/22 01:00 107 06/17/22 01:00 36.5 107 17 100/59 (73) 99 Mechanical Ventilator 45.00 06/17/22 00:00 36.9 107 20 89/64 (72) 99 Mechanical Ventilator 45.00 06/16/22 23:59 94 Mechanical Ventilator 45 06/16/22 23:41 107 93/62 06/16/22 23:00 37.1 107 20 93/62 (72) 98 Mechanical Ventilator 45.00 06/16/22 22:00 37.1 107 21 94/70 (78) 98 Mechanical Ventilator 45.00 06/16/22 22:00 108 82/52 06/16/22 21:28 108 21 97 45 06/16/22 21:00 35.9 108 20 94/72 (79) 98 Mechanical Ventilator 45.00 06/16/22 20:00 35.9 109 11 80/53 (62) 98 Mechanical Ventilator 45.00 06/16/22 20:00 94 Mechanical Ventilator 45 06/16/22 20:00 36.4 06/16/22 19:00 36.2 109 16 94/72 (79) 97 Mechanical Ventilator 45.00 06/16/22 19:00 109 06/16/22 18:50 109 20 96 45 06/16/22 18:00 36.6 130 24 114/76 (89) 94 Mechanical Ventilator 45.00 06/16/22 17:00 36.7 109 19 101/79 (86) 95 Mechanical Ventilator 45.00 06/16/22 16:48 94 Mechanical Ventilator 45 06/16/22 16:00 37.7 109 20 94/57 (69) 94 Mechanical Ventilator 45.00 06/16/22 15:40 107 93/70 06/16/22 15:40 107 93/70 06/16/22 15:40 107 93/70 06/16/22 15:36 37.5 06/16/22 15:33 107 93/70 06/16/22 15:00 37.7 108 20 95/70 (78) 94 Mechanical Ventilator 45.00 06/16/22 14:32 107 22 95 45 06/16/22 14:10 107 107/64 06/16/22 14:00 37.1 107 20 107/64 (78) 93 Mechanical Ventilator 45.00 I & O 06/17/22 07:00 Intake Total 3950 ml Output Total 3025 ml Balance 925 ml Height & Weight Height: 5'8.00" Weight: 200lbs. 0.0oz. 90.074606xj; 31.95 BMI Method:Stated General Appearance: No Apparent Distress, Chronically ill HEENT: Other (Eyes closed - sedated) Neck: Non Tender, Supple Respiratory: Other (Markedly diminished breath sounds throughout no rhonchi noted anteriorly no wheezing) Cardiovascular: Irregularly Irregular, Other ( no murmur appreciated but heart sounds distant increased AP diameter of the chest noted.) Capillary Refill: Less Than 3 Seconds Peripheral Pulses: 2+ Radial Pulses (R), 2+ Radial Pulses (L) Gastrointestinal: normal bowel sounds, non tender, soft Extremity: Other ( 3+ edema on the upper extremities symmetrical 2+ in the lower extremities symmetrical) Neurologic/Psychiatric: Other (Sedated) Skin: Ecchymosis (bilateral arms) Other comments I am remotely monitoring this patient from another state. I am unable to do the bedside exam, and history/physical and pertinent information is taken from other notes in the computer and bedside staff. . Results Lab Laboratory Tests 06/16/22 03:39 06/17/22 03:40 Assessment/Plan Assessment/Plan 1. ACUTE AND CHR. RESPIRATORY FAILURE REQUIRING INTUBATION AND MECHANICAL VENTILLATION. 2.AECOPD 3.AFIB WITH RVR 4. ANXIETY DISORDER. 4. POSSIBLE RLL PNEUMONIA. 5. HYPERGYCEMIA 6. ANEMIA CHRONIC. 7. HYPOTENSION PLAN 1. CONTINUE CURRENT VENT SETTINGS. NOT READY FOR SBT TODAY 2. CONTINUE IV ABX'S. 3. AFIB WITH RVR MANAGEMNET PER CARDS. 4. CONTINUE BRONCHO DILATORS AND STEROIDS 5. ISS 6. DVT AND ULCER PROPHYLAXIS. 7. WILL GIVE IV ALBUMIN 25% 50 GM. 8. HE MAY NEED TRACH AND PEG SOON. 9. AGREE WITH LTACH PLACEMENT. Critical Care: Ventilator Management Time spent with patient (mins): 33 ROZINA COVINGTON MD Jun 17, 2022 13:17
[2022-06-17 14:52] VITALS: BP 93/64
[2022-06-17] MEDS: NOREPINEPHRINE 8 MG/250 ML 250 ML IV SCH (15:30)
[2022-06-17 18:43] VITALS: BP 80/97
[2022-06-17] MEDS: MONTELUKAST 10 MG (SINGULAIR) TAB PO SCH (21:06)
[2022-06-17 22:14] VITALS: BP 95/67
[2022-06-18] MEDS: morphine IMMEDIATE RELEASE 15 MG TABLET PO SCH ×5 (00:10→23:38)
[2022-06-18] MEDS: MEROPENEM 500 MG/NS 100 ML IVPB IV SCH ×4 (00:10→05:59)
[2022-06-18] MEDS: inSUlin ASPART (NovoLOG) 1 UNIT/0.01 ML (CHARGE PER UNIT) SC SCH ×2 (00:10→06:00)
[2022-06-18] MEDS: fentaNYL DRIP PRE-MIX 250 ML IV SCH ×2 (00:28→08:31)
[2022-06-18 02:30] VITALS: BP 92/68
[2022-06-18] MEDS: RT-IPRATROPIUM (ATROVENT) 0.5MG/2.5ML AMP IH SCH ×2 (02:30→07:00)
[2022-06-18] MEDS: PROPOFOL DRIP (ICU) 100 ML IV SCH (02:47)
[2022-06-18] MEDS: meTOprolol 5 MG/5 ML (LOPRESSOR) VIAL IV PRN (02:59)
[2022-06-18 04:27] LABS: BASOPHILS % (AUTO) 0 % (0-10); EOSINOPHILS % (AUTO) 0 % (0-10); MEAN CORPUSCULAR HEMOGLOBIN 28 pg (25-34); MEAN CORPUSCULAR HGB CONC 32 g/dL (32-36)
[2022-06-18 04:29] LABS: HEMATOCRIT 28 % (40-54); HEMOGLOBIN 8.9 g/dL (13.3-17.7); LYMPHOCYTES # (AUTO) 0.2 10^3/uL (1.0-4.0); LYMPHOCYTES % (AUTO) 1 % (12-44); MEAN CORPUSCULAR VOLUME 88 fL (80-99); MONOCYTES # (AUTO) 0.2 10^3/uL (0.0-1.0); MONOCYTES % (AUTO) 1 % (0-12); NEUTROPHILS # (AUTO) 15.3 10^3/uL (1.8-7.8); NEUTROPHILS % (AUTO) 97 % (42-75); PLATELET COUNT 101 10^3/uL (130-400); WHITE BLOOD COUNT 15.8 10^3/uL (4.3-11.0)
[2022-06-18 04:35] LABS: ALBUMIN 2.3 GM/DL (3.2-4.5); POTASSIUM 4.2 MMOL/L (3.6-5.0)
[2022-06-18 04:36] LABS: CALCIUM 7.5 MG/DL (8.5-10.1)
[2022-06-18] MEDS: NOREPINEPHRINE 8 MG/250 ML 250 ML IV SCH (04:39)
[2022-06-18 04:40] LABS: BILIRUBIN,TOTAL 0.9 MG/DL (0.1-1.0)
[2022-06-18 04:41] LABS: PHOSPHORUS 4.2 MG/DL (2.3-4.7)
[2022-06-18 04:42] LABS: CREATININE SERUM 0.55 MG/DL (0.60-1.30)
[2022-06-18 04:45] LABS: MAGNESIUM 2.2 MG/DL (1.6-2.4)
[2022-06-18] MEDS: methylPREDNISolone 125 MG (Solu-MEDROL) VIAL IVP SCH (06:00)
[2022-06-18] MEDS: MAGNESIUM 1 GM/100 ML IVPB 100 ML IV SCH (06:19)
[2022-06-18] MEDS: KCL 20 MEQ TAB (K-DUR) PO SCH (06:19)
[2022-06-18] MEDS: POTASSIUM CL 10MEQ/50ML IVPB 50 ML IV SCH (06:19)
[2022-06-18 07:06] VITALS: BP 99/69
[2022-06-18] MEDS: SENNOSIDES 8.6 MG (SENOKOT) TAB PO SCH (08:00)
[2022-06-18] MEDS: PANTOPRAZOLE 40 MG (PROTONIX) VIAL IV SCH (08:00)
[2022-06-18] MEDS: TAMSULOSIN 0.4 MG (FLOMAX) CAP PO SCH (08:00)
[2022-06-18] MEDS: APIXABAN 5 MG (ELIQUIS) TABLET PO SCH (08:00)
[2022-06-18] MEDS: FLUCONAZOLE 100 MG/50 ML 50 ML IV SCH (08:00)
[2022-06-18] MEDS: DOCUSATE SODIUM 10 MG/ML 10 ML UDC (COLACE) PO SCH (08:00)
[2022-06-18] MEDS: LORATADINE (CLARITIN) 10 MG TAB PO SCH (08:00)
[2022-06-18] MEDS: ROFLUMILAST 500 MCG TAB (DALIRESP) PO SCH (08:00)
[2022-06-18] MEDS: DIGOXIN 0.25 MG/ML (LANOXIN) 2 ML AMP IV SCH (08:00)
[2022-06-18 08:31] VITALS: BP 113/73
--- NOTE | 2022-06-18 09:54 | Tele-ICU Progress Note ---
Subjective Date Seen by a Provider: Jun 18, 2022 Time Seen by a Provider: 09:54 Subjective/Events-last exam as per rn: discussion with bedside md - patient's family wishes to withdraw support and proceed with extubation and initiation of comfort measures. Sepsis Event Evaluation Height, Weight, BMI Height: 5'8.00" Weight: 200lbs. 0.0oz. 90.434915av; 31.95 BMI Method:Stated Exam Exam Patient acknowledged, consented, and participated in this virtual visit which was conducted using real time audio/video Vital Signs Date Time Temp Pulse Resp B/P (MAP) Pulse Ox O2 Delivery O2 Flow Rate FiO2 06/18/22 09:00 141 21 107/65 (70) 96 Mechanical Ventilator 45.00 06/18/22 08:31 117 113/73 06/18/22 08:00 35.9 105 17 91/66 (73) 93 Mechanical Ventilator 45.00 06/18/22 07:58 35.9 06/18/22 07:06 105 20 98 40 06/18/22 07:00 105 06/18/22 07:00 35.8 105 20 99/69 (80) 98 Mechanical Ventilator 45.00 06/18/22 06:00 35.6 105 20 95/58 (70) 99 Mechanical Ventilator 45.00 06/18/22 05:00 35.7 105 17 93/70 (78) 98 Mechanical Ventilator 45.00 06/18/22 04:00 95 Mechanical Ventilator 40 06/18/22 04:00 35.9 105 19 96/68 (77) 97 Mechanical Ventilator 45.00 06/18/22 03:00 36.0 135 19 100/55 (70) 97 Mechanical Ventilator 45.00 06/18/22 02:47 105 92/68 06/18/22 02:30 105 20 98 40 06/18/22 02:00 35.8 105 20 106/75 (85) 98 Mechanical Ventilator 45.00 06/18/22 01:00 35.9 106 20 96/73 (81) 97 Mechanical Ventilator 45.00 06/18/22 00:28 106 95/67 06/18/22 00:16 106 06/18/22 00:00 37.0 106 14 97/71 (80) 96 Mechanical Ventilator 45.00 06/17/22 23:59 95 Mechanical Ventilator 40 06/17/22 23:00 37.4 106 19 90/64 (73) 96 Mechanical Ventilator 45.00 06/17/22 22:14 107 20 96 40 06/17/22 22:00 37.6 107 13 95/69 (78) 96 Mechanical Ventilator 45.00 06/17/22 21:06 107 80/97 06/17/22 21:00 36.8 107 20 89/64 (72) 96 Mechanical Ventilator 45.00 06/17/22 20:00 36.7 107 13 101/63 (76) 94 Mechanical Ventilator 45.00 06/17/22 20:00 95 Mechanical Ventilator 40 06/17/22 20:00 36.2 06/17/22 19:00 36.0 106 19 95/62 (73) 96 Mechanical Ventilator 45.00 06/17/22 19:00 107 06/17/22 18:43 106 20 96 40 06/17/22 18:00 36.1 107 20 92/61 (71) 95 Mechanical Ventilator 45.00 06/17/22 17:17 107 107/72 06/17/22 17:00 36.7 108 11 76/60 (65) 95 Mechanical Ventilator 45.00 06/17/22 16:27 108 103/70 06/17/22 16:00 36.7 06/17/22 16:00 36.5 108 10 103/70 (81) 94 Mechanical Ventilator 45.00 06/17/22 15:30 95 Mechanical Ventilator 40 06/17/22 15:00 35.8 107 10 95/71 (79) 98 Mechanical Ventilator 45.00 06/17/22 14:52 107 20 98 40 06/17/22 14:00 36.4 108 19 93/64 (74) 97 Mechanical Ventilator 45.00 06/17/22 13:00 108 06/17/22 13:00 36.4 107 10 112/67 (82) 97 Mechanical Ventilator 45.00 06/17/22 12:30 128 88/80 06/17/22 12:30 122 88/80 06/17/22 12:00 95 Mechanical Ventilator 40 06/17/22 12:00 36.1 111 17 98/73 (81) 96 Mechanical Ventilator 45.00 06/17/22 11:00 35.9 107 25 97/68 (78) 96 Mechanical Ventilator 45.00 06/17/22 10:30 110 97/68 06/17/22 10:28 106 20 98 40 06/17/22 10:00 35.9 107 16 90/61 (71) 98 Mechanical Ventilator 45.00 I & O 06/18/22 07:00 Intake Total 2900 ml Output Total 1245 ml Balance 1655 ml Height & Weight Height: 5'8.00" Weight: 200lbs. 0.0oz. 90.582320fz; 31.95 BMI Method:Stated General Appearance: No Apparent Distress, Chronically ill HEENT: Other (Eyes closed - sedated) Neck: Non Tender, Supple Respiratory: Other (Markedly diminished breath sounds throughout no rhonchi noted anteriorly no wheezing) Cardiovascular: Irregularly Irregular, Other ( no murmur appreciated but heart sounds distant increased AP diameter of the chest noted.) Capillary Refill: Less Than 3 Seconds Peripheral Pulses: 2+ Radial Pulses (R), 2+ Radial Pulses (L) Gastrointestinal: normal bowel sounds, non tender, soft Extremity: Other ( 3+ edema on the upper extremities symmetrical 2+ in the lower extremities symmetrical) Neurologic/Psychiatric: Other (Sedated) Skin: Ecchymosis (bilateral arms) Results Lab Laboratory Tests 06/17/22 03:40 06/18/22 04:15 Assessment/Plan Assessment/Plan ` NATHEN DAMIAN MD Jun 18, 2022 09:54
[2022-06-18] MEDS ORDERED: LORazepam 1 MG (ATIVAN) TAB SL PRN (10:15)
[2022-06-18] MEDS ORDERED: RT-ALBUTEROL/IPRATROPIUM 3 ML (DUONEB) VIAL INH PRN (10:15)
[2022-06-18] MEDS ORDERED: ONDANSETRON 4 MG/2 ML (SDV) Z0FRAN IVP PRN (10:15)
[2022-06-18] MEDS ORDERED: SALIVA SUBSTITUTE 60 ML SPRAY(MOUTHKOTE) MM PRN (10:15)
[2022-06-18] MEDS ORDERED: LORazepam INJ 2 MG/ML (ATIVAN) VIAL IVP PRN (10:15)
[2022-06-18] MEDS ORDERED: BISACODYL 10 MG SUPP (DULCOLAX) PR PRN (10:15)
[2022-06-18] MEDS ORDERED: ACETAMINOPHEN 650 MG SUPP (TYLENOL) PR PRN (10:15)
[2022-06-18] MEDS ORDERED: ARTIFICAL TEARS 0.4 ML UNIT DOSE (REFRESH PLUS) OU PRN (10:15)
[2022-06-18] MEDS ORDERED: PROMETHAZINE INJ 25 MG/ML (PHENERGAN) AMP IVP PRN (10:15)
[2022-06-18] MEDS ORDERED: GLYCOPYRROLATE 0.2 MG/ML (ROBINUL) 2 ML VIAL IV PRN (10:15)
[2022-06-18] MEDS ORDERED: morphine INJ 10 MG/ML 1ML (SYR OR VIAL) IVP STA (10:16)
[2022-06-18] MEDS ORDERED: morphine INJ 4 MG/ML 1 ML (VIAL/SYRINGE) IVP PRN (10:30)
[2022-06-18] MEDS: dilTIAZem DRIP PRE-MIX 125 ML IV SCH (11:17)
--- NOTE | 2022-06-18 12:17 | Progress Note - Hospitalist ---
Subjective HPI/CC On Admission Date Seen by Provider: Jun 18, 2022 Time Seen by Provider: 11:45 Kaya Carpenter, 61 yo M, with a past medical history of COPD, hypertension, hyperlipidemia, gastroesophageal reflux disease, hypothyroidism, and diastolic heart failure, presents to ED with a chief complaint of Respiratory Problems, noting elevated heart rate and low O2. He was discharged from [facility] earlier today after formerly being admitted for acute respiratory failure with hypoxia and respiratory acidosis, likely secondary to AECOPD and right middle lobe PNA. On interview, Kaya is sitting up in his ER bed wearing a BiPAP. His is present in the room. He is in mild respiratory distress. Patient states that he was being driven home by his earlier this afternoon when suddenly his heart rate spiked to 177 with an O2 sat of 90%. Shortly after his heart rate jumped again to 189 with an O2 sat of 87%. Therefore, they re-routed back to ED. He was wearing 6L O2 via nasal cannula at the time. Subjective/Events-last exam Patient sedated on ventilator no evidence for distress. Objective Exam Vital Signs Vital Signs Date Time Temp Pulse Resp B/P (MAP) Pulse Ox O2 Delivery O2 Flow Rate FiO2 06/18/22 11:00 36.9 106 19 48/35 (39) 97 Mechanical Ventilator 45.00 06/18/22 08:00 40 Capillary Refill : Less Than 3 Seconds General Appearance: No Apparent Distress, Chronically ill Respiratory: Other (Diminished breath sounds posteriorly with some scattered rhonchi anteriorly no wheezing noted) Cardiovascular: Regular Rate, Rhythm, No Murmur, Other ( 2+ lower extremity edema 3+ upper extremity edema) Gastrointestinal: Other ( soft no reaction to palpation no organomegaly noted no mass appreciated occasional bowel sounds noted no significant distention.) Results/Procedures Lab Laboratory Tests 06/18/22 04:15 Patient resulted labs reviewed. Imaging: Reviewed Imaging Report Procedures NAME: KAYA CARPENTER [facility] REC#: [id number] : 1960 ADMIT DATE: 06/05/22 PHYSICIAN: BONI TERRAZAS CRNA PROCEDURE REPORT Procedures/Interventions Procedure Start/Stop/Diagnosis Date of Procedure: Jun 08, 2022 Start Time: 11:10 Referring Physician: Saman Preprocedural Diagnosis: Respiratory Failure Brief History Called by housekeeping attendant for intubation and A-Line request per Dr. Davison for acute respiratory failure. On arrival pt opened eyes to command but was tachycardic and dyspneic on bipap. Consent obtained from . Etomidate 14mg and Anectine 120mg for RSI. Ventilated with BVM 100%. VL with ICU Glidescope grade 1 view with #8.0 ETT passing easily and secured by RT aprox 23cm at lip with tube nielsen. BS coarse b/l, +ETCO2 color change with EZcap. After intubation was completed, left wrist was prepped with chloraprep and #20 g Arrow A-line placed x2 attempt. Good blood return and waveform on monitor. Catheter secured with sterile op site and secured with tape per [employer]. Report to RN. Stop Time: 11:28 Postprocedural Diagnosis: Respiratory Failure Intubation RSI: Yes 100% pre-Ox, [id number]: Yes Intubation Method: orotracheal Videoscope used: Yes Medications: Etomidate Mask Ventilation: positive Positive End Tide CO2: Yes Breath Sounds after Intubation: bilateral-equal Intubated with ease: Yes Intubation Complications: no complications Post Intubation Xray-done: Yes Arterial Line Arterial Line Catheter: 20G Type: Radial Location: Left Procedure: prepped, draped in sterile fashion, good wave-form was obtained, patient tolerated procedure well, no immediate complications, post procedure area cleaned, post procedure dressing applied BONI TERRAAZS CRNA Jun 08, 2022 11:46 [id number] <Created by BONI TERRAZAS CRNA> <Electronically signed by BONI TERRAZAS CRNA> 06/08/22 1148 Assessment/Plan Assessment and Plan Assess & Plan/Chief Complaint (1) Sepsis Status: Acute Assessment & Plan: 06/12: Continue IV antibiotics, IVFs, eICU managing vent 06/13: Repeat blood cultures today, start cefepime and Vanc due to jump in WBC 06/14: Blood pressures have trended down, continue broad spec antibiotics, WBC trending down, repeat blood cultures pending 06/15: changed to Meropenum today due to fevers and WBC, d/c Cefepime 06/16: WBC trending down, will continue Meropneum/Vanc/Diflucan, working on LTAC placement vs comfort care 06/17 presumed pneumonia with sepsis in an individual with acute on chronic hypercapnic respiratory failure. This is further complicated by atrial fibrillation with rapid ventricular response. I return to discuss poor prognosis with his who reports that his quality of life previous to this admission had been quite poor. She has been of the mindset that he is not going to recover which I am in total agreement with that. There is 1 son that is quite hesitant and they would like to further discuss comfort care with their regular physician Dr. Mai before making final decision on comfort care. Prognosis guarded. 06/18: Patient evaluated with son present discussed poor prognosis reiterating the above. Remainder the family returned I came back later to have the same discussion recommending comfort care. Also pointed out that each day his platelet count is dropping compatible with likely sepsis related DIC likely to progress increasing bleeding risk his white count was higher as well today. Af ter discussion they have opted to proceed with comfort care end-of-life expectations discussed we will extubate and switch to comfort care protocol. Qualifiers: Qualified Codes: A41.9 - Sepsis, unspecified organism; R65.20 - Severe sepsis without septic shock; J96.01 - Acute respiratory failure with hypoxia (2) Acute on chronic respiratory failure with hypoxia and hypercapnia Status: Acute Assessment & Plan: 06/13: eICU for vent management (3) COPD exacerbation Status: Acute (4) Pneumonia Status: Acute (5) Atrial fibrillation with RVR Status: Chronic Assessment & Plan: 06/12: Cardiology consulted, appreciate recommendations 06/16: Cardizem drip and BB PRN (6) Tachycardia Status: Acute Assessment & Plan: 06/15: does not seem to be A fib, will notify cardiology that we would like them to see patient again, Lopressor added last night by eICU (7) Discharge planning issues Assessment & Plan: 06/13: Spoke with family today in meeting. Discussed chcf goals and prognosis. Patient is still guarded. Patient may need LTAC placement as he will be a long titration. At this time they would like to keep him Full Code 06/15: and son in room this AM, discussed course with them that he is getting worse and needing additional support, not candidate for vent SBT at this time Critical Care Ventilator Management YUNG BETH MD Jun 18, 2022 12:16
[2022-06-18] MEDS: morphine INJ 10 MG/ML 1ML (SYR OR VIAL) IVP PRN ×5 (14:21→21:54)
[2022-06-18] MEDS: LORazepam INJ 2 MG/ML (ATIVAN) VIAL IVP PRN ×3 (14:21→22:51)
[2022-06-18] MEDS: GLYCOPYRROLATE 0.2 MG/ML (ROBINUL) 2 ML VIAL IV PRN ×3 (14:21→22:51)
[2022-06-18] MEDS ORDERED: ATROPINE 1% OPHTHALMIC SOLN 2 ML SL PRN ×2 (16:15)
== END 2022-06-19 05:03 | disposition expired | DRG 207 ==
LOC: EDUNIT# 13:55 → ER 13:58 → ICU 15:15 → 4TH 06-18 18:42
PROVIDERS: ADMIT Internal Medicine; ATTEND Family Medicine
PROC: 5A0935A Assistance with Respiratory Ventilation, Less than 24 Consecutive Hours, High Flow/Velocity Cannula (ICD-10-PCS; 2022-06-05)
PROC: 5A09357 Assistance with Respiratory Ventilation, Less than 24 Consecutive Hours, Continuous Positive Airway Pressure (ICD-10-PCS; 2022-06-07)
PROC: 5A1955Z Respiratory Ventilation, Greater than 96 Consecutive Hours (ICD-10-PCS; principal; 2022-06-08)
PROC: 0BH17EZ Insertion of Endotracheal Airway into Trachea, Via Natural or Artificial Opening (ICD-10-PCS; 2022-06-08)
DX: J96.21 Acute and chronic respiratory failure with hypoxia (principal); J18.9 Pneumonia, unspecified organism; A41.9 Sepsis, unspecified organism; R65.21 Severe sepsis with septic shock; D65 Disseminated intravascular coagulation [defibrination syndrome]; I48.92 Unspecified atrial flutter; I50.32 Chronic diastolic (congestive) heart failure; E87.29 Other acidosis; E66.2 Morbid (severe) obesity with alveolar hypoventilation; E87.0 Hyperosmolality and hypernatremia; Z66 Do not resuscitate; Z51.5 Encounter for palliative care; J96.22 Acute and chronic respiratory failure with hypercapnia; J43.9 Emphysema, unspecified; I48.0 Paroxysmal atrial fibrillation; I11.0 Hypertensive heart disease with heart failure; I25.10 Atherosclerotic heart disease of native coronary artery without angina pectoris; E78.00 Pure hypercholesterolemia, unspecified; K21.9 Gastro-esophageal reflux disease without esophagitis; E03.9 Hypothyroidism, unspecified; Z99.81 Dependence on supplemental oxygen; N13.9 Obstructive and reflux uropathy, unspecified; Z68.32 Body mass index [BMI] 32.0-32.9, adult; D64.9 Anemia, unspecified; H54.7 Unspecified visual loss; F41.9 Anxiety disorder, unspecified; R73.9 Hyperglycemia, unspecified; I95.9 Hypotension, unspecified; Z87.891 Personal history of nicotine dependence; T38.0X5A Adverse effect of glucocorticoids and synthetic analogues, initial encounter; Z96.651 Presence of right artificial knee joint; Z82.49 Family history of ischemic heart disease and other diseases of the circulatory system; Z79.899 Other long term (current) drug therapy; Z79.82 Long term (current) use of aspirin; Z79.52 Long term (current) use of systemic steroids; Z88.5 Allergy status to narcotic agent; Z88.8 Allergy status to other drugs, medicaments and biological substances
CPT/HCPCS: 36415; 36569; 36600; 71045; 76937; 80053; 80202; 81000; 82805; 82947; 83735; 83880; 84100; 84439; 84443; 84478; 84484; 85007; 85025; 85027; 87040; 87070; 87077; 87081; 87088; 87186; 87205; 93005; 93041; 94002; 94003; 94640; 94660; 94799; 96374; 96375